=== PATIENT | male | born 1935 | race Caucasian/White ===

== ENCOUNTER 2016-11-04 07:17 | Inpatient (IN) | payer MEDICARE, OTHER ==
[2016-11-04 07:29] VITALS: BMI 34.4
[2016-11-04] MEDS ORDERED: KETOROLAC TROMETHAMINE 30 MG/1 ML VIAL IVPUSH ONE (08:00)
[2016-11-04] MEDS ORDERED: SODIUM CHLORIDE 1,000 ML IV SCH (08:00)
--- NOTE | 2016-11-04 08:00 | PDOC ---
History of Present Illness <Jose Kirk - Last Filed: 11/04/16 11:12> - General History Source: Patient Exam Limitations: No Limitations - History of Present Illness Initial Comments: 11/04/16 09:30 The patient is an 80 year old male with a significant past medical history of gout, diabetes, hypertension, cardiac stent (on Eliquis and Advil), CAD, and pacemaker, who presents to the ER with chest pain and cough for five days and joint pain in the left elbow and ankles. Patient states he has a progressively worsening productive cough. He states he has associated chest pain while coughing. Patient reports he has swelling in the right arm and swelling in the feet. He states he recently had a vaccination but cannot recall if it was a flu shot or a pneumonia shot. Patient denies taking allopurinol. He denies shortness of breath He denies fever, chills, nausea, vomiting, weakness, paresthesia, or abdominal pain PCP: Dr. Don Patterson Cardiolgist: Dr. Brunner <Ching Lopez - Last Filed: 11/04/16 12:48> - General Chief Complaint: Shortness of Breath Stated Complaint: SOB,EDEMA,PAIN Past History - Past Medical History Anemia: No Asthma: No Cancer: No Cardiac Disorders: Yes (Pacemaker) CVA: No COPD: No CHF: No Dementia: No Diabetes: Yes GI Disorders: No Disorders: Yes (?) HTN: Yes Hypercholesterolemia: Yes Liver Disease: No Seizures: No Thyroid Disease: No - Surgical History Cardiac Surgery: Yes (pacemaker, STENTS,Pacemaker) Cholecystectomy: Yes Orthopedic Surgery: Yes - Psycho/Social/Smoking Cessation Hx Anxiety: No Suicidal Ideation: No Smoking Status: No Smoking History: Never smoked Have you smoked in the past 12 months: No Number of Cigarettes Smoked Daily: 0 Information on smoking cessation initiated: No Hx Alcohol Use: No Drug/Substance Use Hx: No Substance Use Type: None Hx Substance Use Treatment: No <Jose Kirk - Last Filed: 11/04/16 11:12> <Ching Lopez - Last Filed: 11/04/16 12:48> - Past Medical History Allergies/Adverse Reactions: Allergies Allergy/AdvReac Type Severity Reaction Status Date / Time No Known Drug Allergies Allergy Verified 11/04/16 07:25 Home Medications: Ambulatory Orders Aspirin [Aspirin EC] 81 mg PO DAILY 12/01/15 Atorvastatin Ca [Lipitor] 20 mg PO HS 12/01/15 Glimepiride 4 mg PO BID 12/01/15 Ranitidine [Zantac -] 150 mg PO BID 12/01/15 Ranolazine [Ranexa] 500 mg PO BID 12/01/15 Sacubitril/Valsartan [Entresto 24 mg-26 mg Tablet] 1 each PO BID 12/01/15 Tamsulosin HCl 0.4 mg PO DAILY 12/01/15 Furosemide [Lasix -] 40 mg PO DAILY #30 tablet 12/07/15 Amlodipine Besylate 2.5 mg PO DAILY 11/04/16 Apixaban [Eliquis] 2.5 mg PO BID 11/04/16 Colchicine [Colcrys -] 0.6 mg PO DAILY 11/04/16 Linaclotide [Linzess] 145 mcg PO DAILY 11/04/16 Linagliptin [Tradjenta] 5 mg PO DAILY 11/04/16 Meclizine HCl [Antivert -] 25 mg PO TID PRN 11/04/16 Review of Systems - Review of Systems Able to Perform ROS?: Yes Comments:: 11/04/16 09:30 CONSTITUTIONAL: Absent: fever, no chills, no fatigue EYES: Absent: visual changes ENT: Absent: ear pain, no sore throat CARDIOVASCULAR: Absent: chest pain, no palpitations RESPIRATORY: Absent: cough, no SOB GI: Absent: abdominal pain, no nausea, no vomiting, no constipation, no diarrhea GENITOURINARY: Absent: dysuria, no frequency, no hematuria MUSCULOSKELETAL: Present: arthralgia, joint pain Absent: back pain, no arthralgia, no myalgia SKIN: Absent: rash NEURO: Absent: headache <Uts,Ching - Last Filed: 11/04/16 12:48> *Physical Exam - Vital Signs Last Vital Signs Temp Pulse Resp BP Pulse Ox 98.5 F 72 18 125/55 99 11/04/16 07:23 11/04/16 07:23 11/04/16 07:23 11/04/16 07:23 11/04/16 07:23 <Jose Kirk - Last Filed: 11/04/16 11:12> - Vital Signs Last Vital Signs Temp Pulse Resp BP Pulse Ox 98.5 F 72 18 125/55 99 11/04/16 07:23 11/04/16 07:23 11/04/16 07:23 11/04/16 07:23 11/04/16 07:23 - Physical Exam Comments: 11/04/16 09:31 GENERAL: Well-appearing, well-nourished. No apparent distress. HEENT: Normocephalic, atraumatic. PERRL, EOM intact. CARDIOVASCULAR: Normal S1, S2. Regular rate and rhythm. PULMONARY: Clear to auscultation bilaterally. ABDOMEN: Distended abdomen. Soft, non-tender. EXTREMITIES: Exquisitely tender in the first metatarsal of the right foot, right over olecranon of left elbow. SKIN: Warm, dry. No rash NEUROLOGICAL: No focal neurological deficits. <Ching Lopez - Last Filed: 11/04/16 12:48> ED Treatment Course - LABORATORY CBC & Chemistry Diagram: 11/04/16 08:10 11/04/16 09:00 <Jose Kirk - Last Filed: 11/04/16 11:12> - LABORATORY CBC & Chemistry Diagram: 11/04/16 08:10 11/04/16 09:00 - ADDITIONAL ORDERS Additional order review: Laboratory Results 11/04/16 08:16 INR 2.08 H D PTT (Actin FS) 33.0 11/04/16 08:10 RBC 2.92 L MCV 85.0 MCHC 30.2 L RDW 18.2 H D MPV 8.4 Neutrophils % 73.5 D Lymphocytes % 15.0 D Monocytes % 10.7 H Eosinophils % 0.6 D Basophils % 0.2 - Medications Given in the ED: ED Medications Discontinued Medications Generic Name Dose Route Start Last Admin Trade Name Freq PRN Reason Stop Dose Admin Ketorolac Tromethamine 30 mg 11/04/16 08:00 11/04/16 08:23 Toradol Injection - IVPUSH 11/04/16 08:01 30 mg ONCE ONE Administration <Ching Lopez - Last Filed: 11/04/16 12:48> Medical Decision Making - Medical Decision Making 11/04/16 11:[address] Alexandre (covering for Dr. Brunner) <Ching Lopez - Last Filed: 11/04/16 12:48> *DC/Admit/Observation/Transfer - Discharge Dispostion Admit: Yes <Jose Kirk - Last Filed: 11/04/16 11:12> - Attestations Scribe Attestion: 11/04/16 09:33 Documentation prepared by Ching Lopez, acting as forensic medical examiner for Jose Kirk MD, /DO. <Ching Lopez - Last Filed: 11/04/16 12:48> Diagnosis at time of Disposition: Acute exacerbation of CHF (congestive heart failure), Anemia Gout attack Qualifiers: Gout site: foot Gout etiology: idiopathic - Discharge Dispostion Condition at time of disposition: Stable - Referrals
[2016-11-04] MEDS ORDERED: KETOROLAC TROMETHAMINE 30 MG/1 ML VIAL ONE (08:23)
[2016-11-04 08:42] LABS: BASOPHIL 0.2 % (0-2.0); EOSINOPHIL 0.6 % (0-4.5); MCH 25.7 pg (25.7-33.7); MCHC 30.2 g/dl (32.0-35.9); MEAN PLT VOLUME 8.4 fl (7.5-11.1); NEUTROPHILS 73.5 % (42.8-82.8); PLATELET COUNT 273 K/MM3 (134-434); RDW 18.2 % (11.9-15.9); WHITE BLOOD COUNT 13.4 K/mm3 (4.0-10.0)
[2016-11-04 09:05] LABS: INR 2.08 (0.82-1.09); PROTHROMBIN TIME (PATIENT) 23.2 SEC (9.98-11.88)
[2016-11-04] MEDS ORDERED: FUROSEMIDE 40 MG/4 ML INJECTABLE VIAL IVPUSH ONE (09:33)
[2016-11-04 09:35] LABS: ALBUMIN 2.9 g/dl (3.4-5.0); BILIRUBIN,TOTAL 0.3 mg/dL (0.2-1.0); CALCIUM 8.2 mg/dL (8.5-10.1); CREATININE 2.5 mg/dL (0.7-1.3); TOT PROT 6.7 g/dl (6.4-8.2); URIC ACID 10.8 mg/dL (2.6-7.2)
[2016-11-04 09:45] LABS: TROPONIN I 0.05 ng/ml (0.00-0.05)
[2016-11-04] MEDS ORDERED: FUROSEMIDE 40 MG/4 ML INJECTABLE VIAL ONE (10:07)
[2016-11-04 10:14] LABS: URINE APPEARANCE CLEAR; URINE BILIRUBIN NEGATIVE (NEGATIVE); URINE BLOOD NEGATIVE (NEGATIVE); URINE COLOR YELLOW; URINE GLUCOSE (UA) NEGATIVE (NEGATIVE); URINE KETONE NEGATIVE (NEGATIVE); URINE LEUK ESTERASE NEGATIVE (NEGATIVE); URINE NITRITE NEGATIVE (NEGATIVE); URINE UROBILINOGEN 2.0 E.U/dl E.U./dl (0.2-1.0)
[2016-11-04 10:29] LABS: URINE PROTEIN 2+ (NEGATIVE)
--- NOTE | 2016-11-04 10:33 | EKG ---
Test Reason : Blood Pressure : / mmHG Vent. Rate : 082 BPM Atrial Rate : 025 BPM P-R Int : 000 ms QRS Dur : 164 ms QT Int : 442 ms P-R-T Axes : 000 -53 099 degrees QTc Int : 516 ms POOR DATA QUALITY, INTERPRETATION MAY BE ADVERSELY AFFECTED Ventricular-paced rhythm WITH OCCASIONAL PREMATURE VENTRICULAR COMPLEXES ABNORMAL ECG WHEN COMPARED WITH ECG OF 01-DEC-2015 16:37, PREMATURE VENTRICULAR COMPLEXES ARE NOW PRESENT VENT. RATE HAS INCREASED BY 16 BPM Confirmed by SABIHA DOWNS MD ([id number]) on 11/04/2016 10:33:12 AM Referred By: Confirmed By:SABIHA DOWNS MD
[2016-11-04 10:37] LABS: URINE HYALINE CAST 27 /lpf; URINE MUCUS RARE; URINE RBC 2 /hpf (0-3); URINE WBC 2 /hpf (3-5)
[2016-11-04] MEDS ORDERED: COLCHICINE 0.6 MG TABLET (FP) PO ONE (11:05)
[2016-11-04] MEDS ORDERED: COLCHICINE 0.6 MG TABLET (FP) ONE (11:11)
--- NOTE | 2016-11-04 14:55 | CONSULT ---
Consult Consult Specialty:: Cardiology Reason for Consultation:: chf - History of Present Illness History of Present Illness: The patient is an 80 year old male with a significant past medical history of gout, diabetes, hypertension, cardiac stent (on Eliquis and Advil), CAD, and pacemaker, who presents to the ER with chest pain and cough for five days and joint pain in the left elbow and ankles. Patient states he has a progressively worsening productive cough. He states he has associated chest pain while coughing. Patient reports he has swelling in the right arm and swelling in the feet. He states he recently had a vaccination but cannot recall if it was a flu shot or a pneumonia shot. Patient denies taking allopurinol. He denies shortness of breath He denies fever, chills, nausea, vomiting, weakness, paresthesia, or abdominal pain - Past Medical History Cardio/Vascular: Yes: CAD, CHF, HTN, Other (CHB s/p PPM) Gastrointestinal: Yes: Constipation Renal/: Yes: Renal Inusuff Musculoskeletal: Yes: Osteoarthritis - Past Surgical History Past Surgical History: Yes: Permanent Pacemaker - Alcohol/Substance Use Hx Alcohol Use: No - Smoking History Smoking history: Never smoked Have you smoked in the past 12 months: No Aproximately how many cigarettes per day: 0 - Social History ADL: Independent History of Recent Travel: No Home Medications - Allergies Allergies/Adverse Reactions: Allergies Allergy/AdvReac Type Severity Reaction Status Date / Time No Known Drug Allergies Allergy Verified 11/04/16 07:25 - Home Medications Home Medications: Ambulatory Orders Aspirin [Aspirin EC] 81 mg PO DAILY 12/01/15 Atorvastatin Ca [Lipitor] 20 mg PO HS 12/01/15 Glimepiride 4 mg PO BID 12/01/15 Ranitidine [Zantac -] 150 mg PO BID 12/01/15 Ranolazine [Ranexa] 500 mg PO BID 12/01/15 Sacubitril/Valsartan [Entresto 24 mg-26 mg Tablet] 1 each PO BID 12/01/15 Tamsulosin HCl 0.4 mg PO DAILY 12/01/15 Furosemide [Lasix -] 40 mg PO DAILY #30 tablet 12/07/15 Amlodipine Besylate 2.5 mg PO DAILY 11/04/16 Apixaban [Eliquis] 2.5 mg PO BID 11/04/16 Colchicine [Colcrys -] 0.6 mg PO DAILY 11/04/16 Linaclotide [Linzess] 145 mcg PO DAILY 11/04/16 Linagliptin [Tradjenta] 5 mg PO DAILY 11/04/16 Meclizine HCl [Antivert -] 25 mg PO TID PRN 11/04/16 Review of Systems - Review of Systems Constitutional: reports: No Symptoms Eyes: reports: No Symptoms HENT: reports: No Symptoms Neck: reports: No Symptoms Cardiovascular: reports: Shortness of Breath Gastrointestinal: reports: No Symptoms Genitourinary: reports: No Symptoms Breasts: reports: No Symptoms Reported Musculoskeletal: reports: No Symptoms Integumentary: reports: No Symptoms Neurological: reports: No Symptoms Endocrine: reports: No Symptoms Hematology/Lymphatic: reports: No Symptoms Psychiatric: reports: No Symptoms Vital Signs: Vital Signs Temperature 98.5 F 11/04/16 07:23 Pulse Rate 71 11/04/16 11:01 Respiratory Rate 19 11/04/16 11:01 Blood Pressure 130/68 11/04/16 11:01 O2 Sat by Pulse Oximetry (%) 96 11/04/16 11:01 Constitutional: Yes: Well Nourished, No Distress, Calm Eyes: Yes: WNL, Conjunctiva Clear, EOM Intact HENT: Yes: WNL, Atraumatic, Normocephalic Neck: Yes: WNL, Supple, Trachea Midline Respiratory: Yes: WNL, Regular, CTA Bilaterally Gastrointestinal: Yes: WNL, Normal Bowel Sounds Renal/: Yes: WNL Cardiovascular: Yes: WNL, Regular Rate and Rhythm Musculoskeletal: Yes: WNL Extremities: Yes: WNL Integumentary: Yes: WNL Neurological: Yes: WNL, Alert, Oriented ...Motor Strength: WNL Psychiatric: Yes: WNL, Alert, Oriented - Other Data Labs, Other Data: INR, PTT INR 2.08 (0.82-1.09) H D 11/04/16 08:16 Laboratory Tests 11/04/16 11/04/16 11/04/16 08:10 08:16 09:00 WBC 13.4 H D RBC 2.92 L Hgb 7.5 L D Hct 24.8 L MCV 85.0 MCHC 30.2 L RDW 18.2 H D Plt Count 273 D MPV 8.4 Neutrophils % 73.5 D Lymphocytes % 15.0 D Monocytes % 10.7 H Eosinophils % 0.6 D Basophils % 0.2 INR 2.08 H D PTT (Actin FS) 33.0 Sodium 142 Potassium 3.8 Chloride 106 Carbon Dioxide 26 Anion Gap 10 BUN 39 H Creatinine 2.5 H Creat Clearance w eGFR 24.91 Random Glucose 141 H D Uric Acid 10.8 H Calcium 8.2 L Total Bilirubin 0.3 AST 12 L ALT 13 Alkaline Phosphatase 56 D Creatine Kinase 137 Troponin I 0.05 D B-Natriuretic Peptide Total Protein 6.7 Albumin 2.9 L Urine Color Urine Appearance Urine pH Ur Specific [place] Urine Protein Urine Glucose (UA) Urine Ketones Urine Blood Urine Nitrite Urine Bilirubin Urine Urobilinogen Ur Leukocyte Esterase Urine RBC Urine WBC Ur Epithelial Cells Hyaline Casts Urine Mucus Stool Occult Blood Blood Type Antibody Screen 11/04/16 11/04/16 11/04/16 09:10 09:10 09:48 WBC RBC Hgb Hct MCV MCHC RDW Plt Count MPV Neutrophils % Lymphocytes % Monocytes % Eosinophils % Basophils % INR PTT (Actin FS) Sodium Potassium Chloride Carbon Dioxide Anion Gap BUN Creatinine Creat Clearance w eGFR Random Glucose Uric Acid Calcium Total Bilirubin AST ALT Alkaline Phosphatase Creatine Kinase Troponin I B-Natriuretic Peptide 52740.85 H Total Protein Albumin Urine Color Yellow Urine Appearance Clear Urine pH 5.0 Ur Specific [place] 1.017 Urine Protein 2+ H Urine Glucose (UA) Negative Urine Ketones Negative Urine Blood Negative Urine Nitrite Negative Urine Bilirubin Negative Urine Urobilinogen 2.0 e.u/dl Ur Leukocyte Esterase Negative Urine RBC 2 Urine WBC 2 Ur Epithelial Cells Rare Hyaline Casts 27 Urine Mucus Rare Stool Occult Blood Blood Type A POSITIVE Antibody Screen Negative 11/04/16 09:50 WBC RBC Hgb Hct MCV MCHC RDW Plt Count MPV Neutrophils % Lymphocytes % Monocytes % Eosinophils % Basophils % INR PTT (Actin FS) Sodium Potassium Chloride Carbon Dioxide Anion Gap BUN Creatinine Creat Clearance w eGFR Random Glucose Uric Acid Calcium Total Bilirubin AST ALT Alkaline Phosphatase Creatine Kinase Troponin I B-Natriuretic Peptide Total Protein Albumin Urine Color Urine Appearance Urine pH Ur Specific [place] Urine Protein Urine Glucose (UA) Urine Ketones Urine Blood Urine Nitrite Urine Bilirubin Urine Urobilinogen Ur Leukocyte Esterase Urine RBC Urine WBC Ur Epithelial Cells Hyaline Casts Urine Mucus Stool Occult Blood Negative Blood Type Antibody Screen Imaging - Results Chest X-ray: Image Reviewed (cm no i/e) EKG: Image Reviewed (v pacing) Problem List - Problems (1) Acute exacerbation of CHF (congestive heart failure) Code(s): I50.9 - HEART FAILURE, UNSPECIFIED (2) Anemia Code(s): D64.9 - ANEMIA, UNSPECIFIED (3) Gout attack Code(s): M10.9 - GOUT, UNSPECIFIED Qualifiers: Gout site: foot Gout etiology: idiopathic (4) Acute on chronic diastolic (congestive) heart failure Code(s): I50.33 - ACUTE ON CHRONIC DIASTOLIC (CONGESTIVE) HEART FAILURE (5) CAD (coronary artery disease) Code(s): I25.10 - ATHSCL HEART DISEASE OF [place] CORONARY ARTERY W/O ANG PCTRS (6) Chest pain Code(s): R07.9 - CHEST PAIN, UNSPECIFIED (7) Chronic kidney disease Code(s): N18.9 - CHRONIC KIDNEY DISEASE, UNSPECIFIED (8) Cough Code(s): R05 - COUGH (9) DM (diabetes mellitus), type 2 with renal complications Code(s): E11.29 - TYPE 2 DIABETES MELLITUS W OTH DIABETIC KIDNEY COMPLICATION (10) Diabetes mellitus type II, controlled Code(s): E11.9 - TYPE 2 DIABETES MELLITUS WITHOUT COMPLICATIONS (11) HLD (hyperlipidemia) Code(s): E78.5 - HYPERLIPIDEMIA, UNSPECIFIED (12) Hypertension Code(s): I10 - ESSENTIAL (PRIMARY) HYPERTENSION (13) Osteoarthritis Code(s): M19.90 - UNSPECIFIED OSTEOARTHRITIS, UNSPECIFIED SITE (14) Pharyngitis Code(s): J02.9 - ACUTE PHARYNGITIS, UNSPECIFIED (15) SOB (shortness of breath) Code(s): R06.02 - SHORTNESS OF BREATH (16) Stented coronary artery Code(s): Z95.5 - PRESENCE OF CORONARY ANGIOPLASTY IMPLANT AND GRAFT (17) Volume overload Code(s): E87.70 - FLUID OVERLOAD, UNSPECIFIED Assessment/Plan acute out [place] chf systolic ischemic cmp htn dm s/p ICD plan; medical rx for gout iv lasix telemetry med rx for mirian Brunner
[2016-11-04] MEDS ORDERED: MECLIZINE HCL 25 MG TABLET (FP) PO PRN (22:55)
[2016-11-04] MEDS ORDERED: ALBUTEROL SO4 2.5/IPRATROPIUM 0.5 INH SOL 3 ML VIAL.NEB. NEB PRN (23:03)
[2016-11-04] MEDS ORDERED: AZITHROMYCIN IVPB 250 ML IVPB ONE (23:45)
[2016-11-05] MEDS: AZITHROMYCIN IVPB 500 MG in DEXTROSE 5%-WATER - 250 ML IVPB ONE ×2 (00:01→00:08)
[2016-11-05] MEDS: INSULIN SLIDING SCALE (NOVOLOG) 1 VIAL SQ SCH ×2 (06:23→11:52)
[2016-11-05] MEDS ORDERED: sitaGLIPtin PHOSPHATE 50 MG TABLET PO SCH ×2 (07:00→10:00)
[2016-11-05 07:09] LABS: BASOPHIL 0.5 % (0-2.0); MCH 26.6 pg (25.7-33.7); MCHC 31.6 g/dl (32.0-35.9); MEAN CELL VOLUME 84.2 fl (80-96); MEAN PLT VOLUME 8.6 fl (7.5-11.1); NEUTROPHILS 64.3 % (42.8-82.8); PLATELET COUNT 227 K/MM3 (134-434); RDW 17.7 % (11.9-15.9); WHITE BLOOD COUNT 10.2 K/mm3 (4.0-10.0)
[2016-11-05 07:52] LABS: ALBUMIN 2.6 g/dl (3.4-5.0); BILIRUBIN,TOTAL 0.2 mg/dL (0.2-1.0); CALCIUM 7.8 mg/dL (8.5-10.1); CREATININE 2.5 mg/dL (0.7-1.3); TOT PROT 6.2 g/dl (6.4-8.2)
[2016-11-05] MEDS: TAMSULOSIN HCL 0.4 MG CAP.ER.24H (FP) PO SCH (08:34)
[2016-11-05] MEDS ORDERED: PT OWN MED DRAWER 7, Y5N ONE ×2 (09:13→10:04)
[2016-11-05] MEDS: RANOLAZINE E.R. 500 MG TABLET (FP) PO SCH ×2 (09:19→21:53)
[2016-11-05] MEDS: APIXABAN 2.5 MG TABLET PO SCH ×3 (09:20→21:53)
[2016-11-05] MEDS: RANITIDINE HCL 150 MG TABLET (FP) PO SCH ×2 (09:24→21:53)
[2016-11-05] MEDS: SACUBITRIL/VALSARTAN 24 MG-26 MG TABLET PO SCH ×2 (09:25→21:53)
[2016-11-05] MEDS: CEFTRIAXONE 50 ML IVPB SCH (09:25)
--- NOTE | 2016-11-05 09:31 | PN ---
Progress Note, Physician History of Present Illness: The patient is an 80 year old male with a significant past medical history of gout, diabetes, hypertension, cardiac stent (on Eliquis and Advil), CAD, and pacemaker, who presents to the ER with chest pain and cough for five days and joint pain in the left elbow and ankles. Patient states he has a progressively worsening productive cough. He states he has associated chest pain while coughing. Patient reports he has swelling in the right arm and swelling in the feet. He states he recently had a vaccination but cannot recall if it was a flu shot or a pneumonia shot. Patient denies taking allopurinol. He denies shortness of breath He denies fever, chills, nausea, vomiting, weakness, paresthesia, or abdominal pain - Current Medication List Current Medications: Active Medications Albuterol/Ipratropium (Duoneb -) 1 amp NEB Q6H PRN PRN Reason: SHORTNESS OF BREATH Amlodipine Besylate (Norvasc -) 2.5 mg PO DAILY [facility] Apixaban (Eliquis -) 2.5 mg PO BID [facility] Last Admin: 11/05/16 09:20 Dose: 2.5 mg Aspirin (Ecotrin -) 81 mg PO DAILY [facility] Atorvastatin Calcium (Lipitor -) 20 mg PO HS [facility] Furosemide (Lasix Injection -) 40 mg IVPUSH DAILY [facility] Glimepiride (Amaryl -) 4 mg PO BID [facility] Last Admin: 11/05/16 09:22 Dose: 4 mg Azithromycin 250 mg/ Dextrose 250 mls @ 250 mls/hr IVPB DAILY [facility] Ceftriaxone Sodium (Rocephin 1gm Ivpb (Pre-Docked)) 50 mls @ 100 mls/hr IVPB DAILY [facility] Insulin Aspart (Novolog Vial Sliding Scale -) 1 vial SQ ACHS [facility] PRN Reason: Protocol Last Admin: 11/05/16 06:23 Dose: Not Given Meclizine HCl (Antivert -) 25 mg PO TID PRN PRN Reason: VERTIGO Non-Formulary Medication (Linaclotide [Linzess]) 145 mcg PO DAILY [facility] Ranitidine HCl (Zantac -) 150 mg PO BID [facility] Ranolazine (Ranexa -) 500 mg PO BID [facility] Last Admin: 11/05/16 09:19 Dose: 500 mg Sitagliptin Phosphate (Januvia -) 50 mg PO AM [facility] Last Admin: 11/05/16 06:32 Dose: 50 mg Tamsulosin HCl (Flomax -) 0.4 mg PO DAILY@0830 [facility] Last Admin: 11/05/16 08:34 Dose: 0.4 mg - Objective Vital Signs: Vital Signs Temperature 98 F 11/05/16 06:00 Pulse Rate 76 11/05/16 06:00 Respiratory Rate 18 11/05/16 06:00 Blood Pressure 116/54 11/05/16 06:00 O2 Sat by Pulse Oximetry (%) 98 11/05/16 06:00 Eyes: Yes: WNL, Conjunctiva Clear, EOM Intact HENT: Yes: WNL, Atraumatic, Normocephalic Neck: Yes: WNL, Supple, Trachea Midline Cardiovascular: Yes: WNL, Regular Rate and Rhythm Respiratory: Yes: WNL, Regular, CTA Bilaterally Gastrointestinal: Yes: WNL, Normal Bowel Sounds Genitourinary: Yes: WNL Musculoskeletal: Yes: WNL Extremities: Yes: WNL Edema: No Integumentary: Yes: WNL Neurological: Yes: WNL, Alert, Oriented ...Motor Strength: WNL Psychiatric: Yes: WNL Labs: CBC, BMP 11/05/16 05:30 11/05/16 05:30 INR, PTT INR 2.08 (0.82-1.09) H D 11/04/16 08:16 Laboratory Tests 11/04/16 11/04/16 11/04/16 08:10 08:16 09:00 WBC 13.4 H D RBC 2.92 L Hgb 7.5 L D Hct 24.8 L MCV 85.0 MCHC 30.2 L RDW 18.2 H D Plt Count 273 D MPV 8.4 Neutrophils % 73.5 D Lymphocytes % 15.0 D Monocytes % 10.7 H Eosinophils % 0.6 D Basophils % 0.2 INR 2.08 H D PTT (Actin FS) 33.0 Sodium 142 Potassium 3.8 Chloride 106 Carbon Dioxide 26 Anion Gap 10 BUN 39 H Creatinine 2.5 H Creat Clearance w eGFR 24.91 POC Glucometer Random Glucose 141 H D Uric Acid 10.8 H Calcium 8.2 L Total Bilirubin 0.3 AST 12 L ALT 13 Alkaline Phosphatase 56 D Creatine Kinase 137 Troponin I 0.05 D B-Natriuretic Peptide Total Protein 6.7 Albumin 2.9 L Urine Color Urine Appearance Urine pH Ur Specific [place] Urine Protein Urine Glucose (UA) Urine Ketones Urine Blood Urine Nitrite Urine Bilirubin Urine Urobilinogen Ur Leukocyte Esterase Urine RBC Urine WBC Ur Epithelial Cells Hyaline Casts Urine Mucus Stool Occult Blood Blood Type Antibody Screen 11/04/16 11/04/16 11/04/16 09:10 09:10 09:48 WBC RBC Hgb Hct MCV MCHC RDW Plt Count MPV Neutrophils % Lymphocytes % Monocytes % Eosinophils % Basophils % INR PTT (Actin FS) Sodium Potassium Chloride Carbon Dioxide Anion Gap BUN Creatinine Creat Clearance w eGFR POC Glucometer Random Glucose Uric Acid Calcium Total Bilirubin AST ALT Alkaline Phosphatase Creatine Kinase Troponin I B-Natriuretic Peptide 61229.85 H Total Protein Albumin Urine Color Yellow Urine Appearance Clear Urine pH 5.0 Ur Specific [place] 1.017 Urine Protein 2+ H Urine Glucose (UA) Negative Urine Ketones Negative Urine Blood Negative Urine Nitrite Negative Urine Bilirubin Negative Urine Urobilinogen 2.0 e.u/dl Ur Leukocyte Esterase Negative Urine RBC 2 Urine WBC 2 Ur Epithelial Cells Rare Hyaline Casts 27 Urine Mucus Rare Stool Occult Blood Blood Type A POSITIVE Antibody Screen Negative 11/04/16 11/05/16 11/05/16 09:50 05:30 05:30 WBC 10.2 H RBC 2.57 L Hgb 6.8 L* Hct 21.7 L MCV 84.2 MCHC 31.6 L RDW 17.7 H Plt Count 227 MPV 8.6 Neutrophils % 64.3 Lymphocytes % 23.0 D Monocytes % 10.2 Eosinophils % 2.0 D Basophils % 0.5 INR PTT (Actin FS) Sodium 142 Potassium 4.0 Chloride 107 Carbon Dioxide 25 Anion Gap 10 BUN 41 H Creatinine 2.5 H Creat Clearance w eGFR 24.91 POC Glucometer Random Glucose 94 D Uric Acid Calcium 7.8 L Total Bilirubin 0.2 D AST 11 L ALT 13 Alkaline Phosphatase 50 Creatine Kinase Troponin I B-Natriuretic Peptide Total Protein 6.2 L Albumin 2.6 L Urine Color Urine Appearance Urine pH Ur Specific [place] Urine Protein Urine Glucose (UA) Urine Ketones Urine Blood Urine Nitrite Urine Bilirubin Urine Urobilinogen Ur Leukocyte Esterase Urine RBC Urine WBC Ur Epithelial Cells Hyaline Casts Urine Mucus Stool Occult Blood Negative Blood Type Antibody Screen 11/05/16 06:22 WBC RBC Hgb Hct MCV MCHC RDW Plt Count MPV Neutrophils % Lymphocytes % Monocytes % Eosinophils % Basophils % INR PTT (Actin FS) Sodium Potassium Chloride Carbon Dioxide Anion Gap BUN Creatinine Creat Clearance w eGFR POC Glucometer 110 Random Glucose Uric Acid Calcium Total Bilirubin AST ALT Alkaline Phosphatase Creatine Kinase Troponin I B-Natriuretic Peptide Total Protein Albumin Urine Color Urine Appearance Urine pH Ur Specific [place] Urine Protein Urine Glucose (UA) Urine Ketones Urine Blood Urine Nitrite Urine Bilirubin Urine Urobilinogen Ur Leukocyte Esterase Urine RBC Urine WBC Ur Epithelial Cells Hyaline Casts Urine Mucus Stool Occult Blood Blood Type Antibody Screen Problem List - Problems (1) Acute exacerbation of CHF (congestive heart failure) Code(s): I50.9 - HEART FAILURE, UNSPECIFIED (2) Anemia Code(s): D64.9 - ANEMIA, UNSPECIFIED (3) Gout attack Code(s): M10.9 - GOUT, UNSPECIFIED Qualifiers: Gout site: foot Gout etiology: idiopathic (4) Acute on chronic diastolic (congestive) heart failure Code(s): I50.33 - ACUTE ON CHRONIC DIASTOLIC (CONGESTIVE) HEART FAILURE (5) CAD (coronary artery disease) Code(s): I25.10 - ATHSCL HEART DISEASE OF [place] CORONARY ARTERY W/O ANG PCTRS (6) Chest pain Code(s): R07.9 - CHEST PAIN, UNSPECIFIED (7) Chronic kidney disease Code(s): N18.9 - CHRONIC KIDNEY DISEASE, UNSPECIFIED (8) Cough Code(s): R05 - COUGH (9) DM (diabetes mellitus), type 2 with renal complications Code(s): E11.29 - TYPE 2 DIABETES MELLITUS W OTH DIABETIC KIDNEY COMPLICATION (10) Diabetes mellitus type II, controlled Code(s): E11.9 - TYPE 2 DIABETES MELLITUS WITHOUT COMPLICATIONS (11) HLD (hyperlipidemia) Code(s): E78.5 - HYPERLIPIDEMIA, UNSPECIFIED (12) Hypertension Code(s): I10 - ESSENTIAL (PRIMARY) HYPERTENSION (13) Osteoarthritis Code(s): M19.90 - UNSPECIFIED OSTEOARTHRITIS, UNSPECIFIED SITE (14) Pharyngitis Code(s): J02.9 - ACUTE PHARYNGITIS, UNSPECIFIED (15) SOB (shortness of breath) Code(s): R06.02 - SHORTNESS OF BREATH (16) Stented coronary artery Code(s): Z95.5 - PRESENCE OF CORONARY ANGIOPLASTY IMPLANT AND GRAFT (17) Volume overload Code(s): E87.70 - FLUID OVERLOAD, UNSPECIFIED Assessment/Plan acute out [place] chf systolic ischemic cmp htn dm s/p ICD anemia plan; anemia w/u hct 24 to 21 ? - as per medicine medical rx for gout iv lasix telemetry med rx for terrad wade Brunner
[2016-11-05] MEDS ORDERED: AZITHROMYCIN IVPB 500 MG in DEXTROSE 5%-WATER - 250 ML IVPB SCH (10:00)
[2016-11-05] MEDS ORDERED: ASPIRIN 325 MG ENTERIC COATED TABLET (FP) PO SCH (10:00)
[2016-11-05] MEDS ORDERED: CEFTRIAXONE 1 GM in DEXTROSE 5%-WATER - 50 ML IVPB SCH (10:00)
[2016-11-05] MEDS ORDERED: AZITHROMYCIN IVPB 250 MG in DEXTROSE 5%-WATER - 250 ML IVPB SCH (10:00)
[2016-11-05] MEDS ORDERED: GLIMEPIRIDE 2 MG TABLET (FP) PO SCH ×2 (10:00→16:30)
[2016-11-05] MEDS ORDERED: amLODIPine BESYLATE 10 MG TABLET (FP) PO SCH (10:00)
[2016-11-05] MEDS: ASPIRIN COATED 81 MG TABLET.EC PO SCH (10:07)
[2016-11-05] MEDS: amLODIPine BESYLATE 2.5 MG TABLET (FP) PO SCH (10:08)
[2016-11-05] MEDS: FUROSEMIDE 40 MG/4 ML INJECTABLE VIAL IVPUSH SCH (10:08)
--- NOTE | 2016-11-05 11:53 | PN ---
Progress Note (short form) - Note Progress Note: PULMONARY CONSULTATION DICTATED 11/05/16 IMP DECOMPENSATED CHF ACUTE BRONCHITIS ASHD S/P STENT ACUTE ON CHRONIC RENAL FAILURE SEVERE ANEMIA GOUT PLAN IV LASIX INHALED BROCHODILATORS ANTIBIOTICS TRANSFUSE MONITOR H+H NASAL O2 MONITOR RENAL FUNCTION DR GARNER Problem List - Problems (1) Acute exacerbation of CHF (congestive heart failure) Code(s): I50.9 - HEART FAILURE, UNSPECIFIED (2) Anemia Code(s): D64.9 - ANEMIA, UNSPECIFIED (3) Gout attack Code(s): M10.9 - GOUT, UNSPECIFIED Qualifiers: Gout site: foot Gout etiology: idiopathic (4) Acute on chronic diastolic (congestive) heart failure Code(s): I50.33 - ACUTE ON CHRONIC DIASTOLIC (CONGESTIVE) HEART FAILURE (5) CAD (coronary artery disease) Code(s): I25.10 - ATHSCL HEART DISEASE OF [place] CORONARY ARTERY W/O ANG PCTRS (6) Chest pain Code(s): R07.9 - CHEST PAIN, UNSPECIFIED (7) Chronic kidney disease Code(s): N18.9 - CHRONIC KIDNEY DISEASE, UNSPECIFIED (8) Cough Code(s): R05 - COUGH (9) DM (diabetes mellitus), type 2 with renal complications Code(s): E11.29 - TYPE 2 DIABETES MELLITUS W OTH DIABETIC KIDNEY COMPLICATION (10) SOB (shortness of breath) Code(s): R06.02 - SHORTNESS OF BREATH (11) Stented coronary artery Code(s): Z95.5 - PRESENCE OF CORONARY ANGIOPLASTY IMPLANT AND GRAFT (12) Volume overload Code(s): E87.70 - FLUID OVERLOAD, UNSPECIFIED (13) Bronchitis Code(s): J40 - BRONCHITIS, NOT SPECIFIED ACUTE OR CHRONIC
[2016-11-05] MEDS ORDERED: DEXTROSE 50%-WATER 50 ML DISP.SYRIN ONE ×2 (14:11→18:41)
--- NOTE | 2016-11-05 15:38 | CONS ---
DATE OF CONSULTATION: 11/05/2016 REFERRING PHYSICIAN: Mecca Rick MD The patient is an 80-year-old male with past medical of gout, diabetes, hypertension, ASHD, status post stent, status post pacemaker, history of smoking many years ago, admitted to [facility] with complaint of chest pain, cough, chest congestion for approximately 5 days. Patient apparently developed chest discomfort as well as cough productive of greenish sputum for the past 5 days or so. He also complained of joint pain, left elbow and ankle pain. Apparently he started getting progressively short of breath and dyspnea on exertion, at which time he presented to the emergency room. In the ER, he was noted to have swelling of right arm and swelling of the feet. He was also noted to be short of breath. He was administered Lasix, transferred up to the floor for further management. Cardiology felt he had an acute decompensated CHF. Of note is he is also noted to be markedly anemic, with a hemoglobin of 7.5 g. He was transfused and repeat this morning revealed hemoglobin of 6.8. Patient denies any history of anemia. He does state that for the past few months, he is getting progressively more dyspneic with minimal exertion, where he only walks half a block or so and then develops severe dyspnea, requiring him to stop before proceeding. He denies any recently travel. There is no DVT or PE in the past. Past medical history, again, includes ASHD, status post stent, status post pacemaker, hypertension, diabetes, gout, questionable CHF. SOCIAL HISTORY: History of smoking many years ago. No occupational exposures. Born in [place], moved to the [facility] greater than 20 years ago. REVIEW OF SYSTEMS: Positive dyspnea, positive cough, green sputum. No hemoptysis. Positive chest discomfort. Positive wheezing. No nausea, no vomiting, no GI complaints. Current medications include , Flomax, Zithromax, ceftriaxone, Eliquis, Antivert, DuoNeb, Ranexa, Norvasc, Januvia, Lipitor, Zantac, Lasix, Ecotrin, and Amaryl. PHYSICAL EXAMINATION: General: The patient is a well-developed, well-nourished male, awake, alert, in no acute distress. Vital Signs: He is currently afebrile. Blood pressure is 116/64. Respiratory rate 18. Heart rate is 76. HEENT: Normocephalic, atraumatic. Neck: Supple. Heart: Regular, S1, S2. Chest: Few bibasilar crackles. Abdomen: Soft. Bowel sounds positive. Extremities: No cyanosis. There is trace bilateral extremity edema. LABORATORIES: WBC is 10.2, hemoglobin 6.8, hematocrit 21.7, with a platelet count of 227,000. INR is 2.08. BNP is 12,262. BUN 41, creatinine 2.5. IMPRESSION: 1. Dyspnea, most likely secondary to multiple factors, one likely decompensated congestive heart failure. 2. Arteriosclerotic heart disease, status post stents. 3. Severe anemia. 4. Upper respiratory infection, acute bronchitis. 5. Acute on chronic renal failure. PLAN: Lasix, supplemental O2, inhaled bronchodilators, CT scan of the chest when stable, transfuse, stool guaiacs, monitor renal function, echocardiogram, daily weights. Anthony [id number]
[2016-11-05] MEDS ORDERED: FUROSEMIDE 40 MG/4 ML INJECTABLE VIAL ONE (18:41)
[2016-11-05] MEDS: DEXTROSE 5%-0.45% SALINE 1,000 ML IV SCH (18:58)
[2016-11-05] MEDS ORDERED: DEXTROSE 50%-WATER 50 ML DISP.SYRIN IVPUSH ONE (19:00)
[2016-11-05] MEDS ORDERED: FUROSEMIDE 40 MG/4 ML INJECTABLE VIAL IVPUSH ONE (19:00)
--- NOTE | 2016-11-05 19:23 | HP ---
Admitting History and Physical - Admission History of Present Illness: Pt is a 80 y/o male w/ multiple medical problems incl - Past Medical History Cardiovascular: Yes: CAD, CHF, HTN, Other (CHB s/p PPM) Gastrointestinal: Yes: Constipation Renal/: Yes: Renal Inusuff Musculoskeletal: Yes: Osteoarthritis - Past Surgical History Past Surgical History: Yes: Permanent Pacemaker - Smoking History Smoking history: Never smoked Have you smoked in the past 12 months: No Aproximately how many cigarettes per day: 0 - Alcohol/Substance Use Hx Alcohol Use: No - Social History ADL: Independent History of Recent Travel: No Home Medications - Allergies Allergies/Adverse Reactions: Allergies Allergy/AdvReac Type Severity Reaction Status Date / Time No Known Drug Allergies Allergy Verified 11/04/16 07:25 - Home Medications Home Medications: Ambulatory Orders Aspirin [Aspirin EC] 81 mg PO DAILY 12/01/15 Atorvastatin Ca [Lipitor] 20 mg PO HS 12/01/15 Glimepiride 4 mg PO BID 12/01/15 Ranitidine [Zantac -] 150 mg PO BID 12/01/15 Ranolazine [Ranexa] 500 mg PO BID 12/01/15 Sacubitril/Valsartan [Entresto 24 mg-26 mg Tablet] 1 each PO BID 12/01/15 Tamsulosin HCl 0.4 mg PO DAILY 12/01/15 Furosemide [Lasix -] 40 mg PO DAILY #30 tablet 12/07/15 Amlodipine Besylate 2.5 mg PO DAILY 11/04/16 Apixaban [Eliquis] 2.5 mg PO BID 11/04/16 Colchicine [Colcrys -] 0.6 mg PO DAILY 11/04/16 Linaclotide [Linzess] 145 mcg PO DAILY 11/04/16 Linagliptin [Tradjenta] 5 mg PO DAILY 11/04/16 Meclizine HCl [Antivert -] 25 mg PO TID PRN 11/04/16 Physical Examination Vital Signs: Vital Signs Temperature 98.1 F 11/05/16 19:19 Pulse Rate 74 11/05/16 19:19 Respiratory Rate 18 11/05/16 19:19 Blood Pressure 129/60 11/05/16 19:19 O2 Sat by Pulse Oximetry (%) 98 11/05/16 06:00 Labs: CBC, BMP 11/05/16 05:30 11/05/16 05:30
[2016-11-05] MEDS: ATORVASTATIN CA 20 MG TABLET (FP) PO SCH (21:53)
[2016-11-05] MEDS ORDERED: COLCHICINE 0.6 MG TABLET (FP) PO SCH (22:15)
[2016-11-05] MEDS: COLCHICINE 0.6 MG TABLET (FP) PO SCH (23:07)
[2016-11-06] MEDS: amLODIPine BESYLATE 2.5 MG TABLET (FP) PO SCH (09:24)
[2016-11-06] MEDS: CEFTRIAXONE 50 ML IVPB SCH (09:24)
[2016-11-06] MEDS: TAMSULOSIN HCL 0.4 MG CAP.ER.24H (FP) PO SCH (09:25)
[2016-11-06] MEDS: ASPIRIN COATED 81 MG TABLET.EC PO SCH (09:25)
[2016-11-06] MEDS: RANITIDINE HCL 150 MG TABLET (FP) PO SCH ×2 (09:26→21:34)
[2016-11-06] MEDS: FUROSEMIDE 40 MG/4 ML INJECTABLE VIAL IVPUSH SCH (09:26)
[2016-11-06 09:48] LABS: MCH 26.5 pg (25.7-33.7); MCHC 31.4 g/dl (32.0-35.9); MEAN CELL VOLUME 84.4 fl (80-96); PLATELET COUNT 287 K/MM3 (134-434); RDW 17.2 % (11.9-15.9); WHITE BLOOD COUNT 12.7 K/mm3 (4.0-10.0)
[2016-11-06 10:14] LABS: CALCIUM 8.3 mg/dL (8.5-10.1); CREATININE 2.3 mg/dL (0.7-1.3)
--- NOTE | 2016-11-06 10:52 | PN ---
Progress Note, Physician History of Present Illness: PULMONARY ALERT,FEELING BETTER,-SOB,-CP,+OCC COUGH - Current Medication List Current Medications: Active Medications Albuterol/Ipratropium (Duoneb -) 1 amp NEB Q6H PRN PRN Reason: SHORTNESS OF BREATH Amlodipine Besylate (Norvasc -) 2.5 mg PO DAILY [facility] Last Admin: 11/06/16 09:24 Dose: 2.5 mg Aspirin (Ecotrin -) 81 mg PO DAILY [facility] Last Admin: 11/06/16 09:25 Dose: 81 mg Atorvastatin Calcium (Lipitor -) 20 mg PO HS [facility] Last Admin: 11/05/16 21:53 Dose: 20 mg Colchicine (Colcrys -) 0.6 mg PO Q3D@1000 [facility] Last Admin: 11/05/16 23:07 Dose: 0.6 mg Furosemide (Lasix Injection -) 40 mg IVPUSH DAILY [facility] Last Admin: 11/06/16 09:26 Dose: 40 mg Ceftriaxone Sodium (Rocephin 1gm Ivpb (Pre-Docked)) 50 mls @ 100 mls/hr IVPB DAILY [facility] Last Admin: 11/06/16 09:24 Dose: 100 mls/hr Dextrose/Sodium Chloride (D5-1/2ns -) 1,000 mls @ 42 mls/hr IV ASDIR [facility] Last Admin: 11/05/16 18:58 Dose: 42 mls/hr Meclizine HCl (Antivert -) 25 mg PO TID PRN PRN Reason: VERTIGO Non-Formulary Medication (Linaclotide [Linzess]) 145 mcg PO DAILY [facility] Ranitidine HCl (Zantac -) 150 mg PO BID [facility] Last Admin: 11/06/16 09:26 Dose: 150 mg Tamsulosin HCl (Flomax -) 0.4 mg PO DAILY@0830 [facility] Last Admin: 11/06/16 09:25 Dose: 0.4 mg - Objective Vital Signs: Vital Signs Temperature 97.8 F 11/06/16 06:00 Pulse Rate 78 11/06/16 06:00 Respiratory Rate 20 11/06/16 06:00 Blood Pressure 123/63 11/06/16 06:00 O2 Sat by Pulse Oximetry (%) 100 11/05/16 22:00 Constitutional: Yes: Well Nourished, Calm Eyes: Yes: WNL HENT: Yes: WNL Neck: Yes: WNL Cardiovascular: Yes: Regular Rate and Rhythm, S1, S2 Respiratory: Yes: CTA Bilaterally Gastrointestinal: Yes: WNL Extremities: Yes: WNL Edema: No Labs: CBC, BMP 11/06/16 09:35 11/06/16 09:35 INR, PTT INR 2.08 (0.82-1.09) H D 11/04/16 08:16 Problem List - Problems (1) Acute exacerbation of CHF (congestive heart failure) Code(s): I50.9 - HEART FAILURE, UNSPECIFIED (2) Anemia Code(s): D64.9 - ANEMIA, UNSPECIFIED (3) Gout attack Code(s): M10.9 - GOUT, UNSPECIFIED Qualifiers: Gout site: foot Gout etiology: idiopathic (4) Acute on chronic diastolic (congestive) heart failure Code(s): I50.33 - ACUTE ON CHRONIC DIASTOLIC (CONGESTIVE) HEART FAILURE (5) CAD (coronary artery disease) Code(s): I25.10 - ATHSCL HEART DISEASE OF [place] CORONARY ARTERY W/O ANG PCTRS (6) Chest pain Code(s): R07.9 - CHEST PAIN, UNSPECIFIED (7) Chronic kidney disease Code(s): N18.9 - CHRONIC KIDNEY DISEASE, UNSPECIFIED (8) Cough Code(s): R05 - COUGH (9) DM (diabetes mellitus), type 2 with renal complications Code(s): E11.29 - TYPE 2 DIABETES MELLITUS W OTH DIABETIC KIDNEY COMPLICATION (10) SOB (shortness of breath) Code(s): R06.02 - SHORTNESS OF BREATH (11) Stented coronary artery Code(s): Z95.5 - PRESENCE OF CORONARY ANGIOPLASTY IMPLANT AND GRAFT (12) Volume overload Code(s): E87.70 - FLUID OVERLOAD, UNSPECIFIED (13) Bronchitis Code(s): J40 - BRONCHITIS, NOT SPECIFIED ACUTE OR CHRONIC Assessment/Plan IMP DECOMPENSATED CHF ACUTE BRONCHITIS ASHD S/P STENT ACUTE ON CHRONIC RENAL FAILURE SEVERE ANEMIA GOUT PLAN CONT IV LASIX INHALED BROCHODILATORS ANTIBIOTICS TRANSFUSE MONITOR H+H NASAL O2 MONITOR RENAL FUNCTION DR GARNER Problem List - Problems (1) Acute exacerbation of CHF (congestive heart failure) Code(s): I50.9 - HEART FAILURE, UNSPECIFIED (2) Anemia Code(s): D64.9 - ANEMIA, UNSPECIFIED (3) Gout attack Code(s): M10.9 - GOUT, UNSPECIFIED Qualifiers: Gout site: foot Gout etiology: idiopathic (4) Acute on chronic diastolic (congestive) heart failure Code(s): I50.33 - ACUTE ON CHRONIC DIASTOLIC (CONGESTIVE) HEART FAILURE (5) CAD (coronary artery disease) Code(s): I25.10 - ATHSCL HEART DISEASE OF [place] CORONARY ARTERY W/O ANG PCTRS (6) Chest pain Code(s): R07.9 - CHEST PAIN, UNSPECIFIED (7) Chronic kidney disease Code(s): N18.9 - CHRONIC KIDNEY DISEASE, UNSPECIFIED (8) Cough Code(s): R05 - COUGH (9) DM (diabetes mellitus), type 2 with renal complications Code(s): E11.29 - TYPE 2 DIABETES MELLITUS W OTH DIABETIC KIDNEY COMPLICATION (10) SOB (shortness of breath) Code(s): R06.02 - SHORTNESS OF BREATH (11) Stented coronary artery Code(s): Z95.5 - PRESENCE OF CORONARY ANGIOPLASTY IMPLANT AND GRAFT (12) Volume overload Code(s): E87.70 - FLUID OVERLOAD, UNSPECIFIED (13) Bronchitis Code(s): J40 - BRONCHITIS, NOT SPECIFIED ACUTE OR CHRONIC
--- NOTE | 2016-11-06 11:43 | PN ---
Progress Note, Physician History of Present Illness: seen and examined today in nad. no overnight events. no new complaints. - Current Medication List Current Medications: Active Medications Albuterol/Ipratropium (Duoneb -) 1 amp NEB Q6H PRN PRN Reason: SHORTNESS OF BREATH Amlodipine Besylate (Norvasc -) 2.5 mg PO DAILY [facility] Last Admin: 11/06/16 09:24 Dose: 2.5 mg Aspirin (Ecotrin -) 81 mg PO DAILY [facility] Last Admin: 11/06/16 09:25 Dose: 81 mg Atorvastatin Calcium (Lipitor -) 20 mg PO HS [facility] Last Admin: 11/05/16 21:53 Dose: 20 mg Colchicine (Colcrys -) 0.6 mg PO Q3D@1000 [facility] Last Admin: 11/05/16 23:07 Dose: 0.6 mg Furosemide (Lasix Injection -) 40 mg IVPUSH DAILY [facility] Last Admin: 11/06/16 09:26 Dose: 40 mg Ceftriaxone Sodium (Rocephin 1gm Ivpb (Pre-Docked)) 50 mls @ 100 mls/hr IVPB DAILY [facility] Last Admin: 11/06/16 09:24 Dose: 100 mls/hr Dextrose/Sodium Chloride (D5-1/2ns -) 1,000 mls @ 42 mls/hr IV ASDIR [facility] Last Admin: 11/05/16 18:58 Dose: 42 mls/hr Meclizine HCl (Antivert -) 25 mg PO TID PRN PRN Reason: VERTIGO Non-Formulary Medication (Linaclotide [Linzess]) 145 mcg PO DAILY [facility] Ranitidine HCl (Zantac -) 150 mg PO BID [facility] Last Admin: 11/06/16 09:26 Dose: 150 mg Tamsulosin HCl (Flomax -) 0.4 mg PO DAILY@0830 [facility] Last Admin: 11/06/16 09:25 Dose: 0.4 mg - Objective Vital Signs: Vital Signs Temperature 97.8 F 11/06/16 06:00 Pulse Rate 78 11/06/16 06:00 Respiratory Rate 20 11/06/16 06:00 Blood Pressure 123/63 11/06/16 06:00 O2 Sat by Pulse Oximetry (%) 100 11/05/16 22:00 Constitutional: Yes: No Distress, Calm, Obese Eyes: Yes: WNL, Conjunctiva Clear, EOM Intact, PERRL HENT: Yes: WNL, Atraumatic, Normocephalic Neck: Yes: WNL, Supple, Trachea Midline Cardiovascular: Yes: Regular Rate and Rhythm, S1, S2. No: Bradycardia, Tachycardia, Pulse Irregular, Bruit, JVD, Gallop, Murmur, Rub, S3, S4, Varicosities Respiratory: Yes: Regular, Diminished. No: Rales, Rhonchi, Wheezes Gastrointestinal: Yes: WNL, Normal Bowel Sounds, Soft. No: Distention, Tenderness Musculoskeletal: Yes: Muscle Weakness Extremities: Yes: WNL Edema: Yes Edema: LLE: Trace, RLE: Trace Peripheral Pulses: Left Doralis Pedis: 2+, Right Dorsalis Pedis: 2+ Integumentary: Yes: WNL Neurological: Yes: WNL, Alert, Oriented, Cran Nerves II-XII Intact ...Motor Strength: WNL Psychiatric: Yes: WNL, Alert, Oriented Labs: CBC, BMP 11/06/16 09:35 11/06/16 09:35 INR, PTT INR 2.08 (0.82-1.09) H D 11/04/16 08:16 - ....Imaging Chest X-ray: Report Reviewed, Image Reviewed EKG: Report Reviewed, Image Reviewed Other: Report Reviewed, Image Reviewed (tele-nsr, intermittent vpaced, pvcs) Problem List - Problems (1) Acute on chronic diastolic (congestive) heart failure Code(s): I50.33 - ACUTE ON CHRONIC DIASTOLIC (CONGESTIVE) HEART FAILURE (2) CAD (coronary artery disease) Code(s): I25.10 - ATHSCL HEART DISEASE OF [place] CORONARY ARTERY W/O ANG PCTRS (3) Chest pain Code(s): R07.9 - CHEST PAIN, UNSPECIFIED (4) Chronic kidney disease Code(s): N18.9 - CHRONIC KIDNEY DISEASE, UNSPECIFIED (5) DM (diabetes mellitus), type 2 with renal complications Code(s): E11.29 - TYPE 2 DIABETES MELLITUS W OTH DIABETIC KIDNEY COMPLICATION (6) HLD (hyperlipidemia) Code(s): E78.5 - HYPERLIPIDEMIA, UNSPECIFIED (7) Hypertension Code(s): I10 - ESSENTIAL (PRIMARY) HYPERTENSION (8) SOB (shortness of breath) Code(s): R06.02 - SHORTNESS OF BREATH (9) Stented coronary artery Code(s): Z95.5 - PRESENCE OF CORONARY ANGIOPLASTY IMPLANT AND GRAFT Assessment/Plan acute gout flair acute on chronic combined systolic/diastolic CHF cough/sob ICM htn dm s/p ICD anemia plan severe anemia down to Hgb 6.8, improved today after prbcs, anemia work up Hold eliquis for now until etiology of anemia determined and treated medical rx for gout cont iv lasix for now monitor I/Os and daily weights ok to dc telemetry chest pain-atypical, cardiac enzymes wnl x1, would repeat 2nd set cont home med rx for known CAD
[2016-11-06] MEDS ORDERED: PT OWN MED DRAWER 7, Y5N ONE ×2 (11:57→21:24)
[2016-11-06] MEDS: SACUBITRIL/VALSARTAN 24 MG-26 MG TABLET PO SCH ×2 (12:31→21:34)
--- NOTE | 2016-11-06 14:30 | CONSULT ---
Consult - text type - Consultation Consultation Note: The patient is an 80 year old male with a significant past medical history of gout, diabetes, hypertension, cardiac stent (on Eliquis and Advil), CAD, and pacemaker, who presents to the ER with chest pain and cough for five days and joint pain in the left elbow and ankles. Patient states he had progressively worsening productive cough. He denies fever, chills, nausea, vomiting, weakness, paresthesia, or abdominal pain. He denies overt bleeding Currently he has low sugars. amaryl/januvia on hold we have been consulted for anemia. HE was trransfused 1 unit PRBCs yesterday - Past Medical History Cardio/Vascular: Yes: CAD, CHF, HTN, Other (CHB s/p PPM) Gastrointestinal: Yes: Constipation Renal/: Yes: Renal Inusuff Musculoskeletal: Yes: Osteoarthritis - Past Surgical History Past Surgical History: Yes: Permanent Pacemaker - Smoking History Smoking history: Never smoked Home Medications - Allergies Allergies/Adverse Reactions: Allergies Allergy/AdvReac Type Severity Reaction Status Date / Time No Known Drug Allergies Allergy Verified 11/04/16 07:25 - Home Medications Home Medications: Ambulatory Orders Aspirin [Aspirin EC] 81 mg PO DAILY 12/01/15 Atorvastatin Ca [Lipitor] 20 mg PO HS 12/01/15 Glimepiride 4 mg PO BID 12/01/15 Ranitidine [Zantac -] 150 mg PO BID 12/01/15 Ranolazine [Ranexa] 500 mg PO BID 12/01/15 Sacubitril/Valsartan [Entresto 24 mg-26 mg Tablet] 1 each PO BID 12/01/15 Tamsulosin HCl 0.4 mg PO DAILY 12/01/15 Furosemide [Lasix -] 40 mg PO DAILY #30 tablet 12/07/15 Amlodipine Besylate 2.5 mg PO DAILY 11/04/16 Apixaban [Eliquis] 2.5 mg PO BID 11/04/16 Colchicine [Colcrys -] 0.6 mg PO DAILY 11/04/16 Linaclotide [Linzess] 145 mcg PO DAILY 11/04/16 Linagliptin [Tradjenta] 5 mg PO DAILY 11/04/16 Meclizine HCl [Antivert -] 25 mg PO TID PRN 11/04/16 Current Medications Albuterol/Ipratropium (Duoneb -) 1 amp NEB Q6H PRN PRN Reason: SHORTNESS OF BREATH Amlodipine Besylate (Norvasc -) 2.5 mg PO DAILY [facility] Last Admin: 11/06/16 09:24 Dose: 2.5 mg Aspirin (Ecotrin -) 81 mg PO DAILY [facility] Last Admin: 11/06/16 09:25 Dose: 81 mg Atorvastatin Calcium (Lipitor -) 20 mg PO HS [facility] Last Admin: 11/05/16 21:53 Dose: 20 mg Colchicine (Colcrys -) 0.6 mg PO Q3D@1000 [facility] Last Admin: 11/05/16 23:07 Dose: 0.6 mg Furosemide (Lasix Injection -) 40 mg IVPUSH DAILY [facility] Last Admin: 11/06/16 09:26 Dose: 40 mg Ceftriaxone Sodium (Rocephin 1gm Ivpb (Pre-Docked)) 50 mls @ 100 mls/hr IVPB DAILY [facility] Last Admin: 11/06/16 09:24 Dose: 100 mls/hr Dextrose/Sodium Chloride (D5-1/2ns -) 1,000 mls @ 42 mls/hr IV ASDIR [facility] Last Admin: 11/05/16 18:58 Dose: 42 mls/hr Meclizine HCl (Antivert -) 25 mg PO TID PRN PRN Reason: VERTIGO Non-Formulary Medication (Linaclotide [Linzess]) 145 mcg PO DAILY [facility] Ranitidine HCl (Zantac -) 150 mg PO BID [facility] Last Admin: 11/06/16 09:26 Dose: 150 mg Tamsulosin HCl (Flomax -) 0.4 mg PO DAILY@0830 [facility] Last Admin: 11/06/16 09:25 Dose: 0.4 mg Last Vital Signs Temp Pulse Resp BP Pulse Ox 97.8 F 78 20 123/63 100 11/06/16 06:00 11/06/16 06:00 11/06/16 06:00 11/06/16 06:00 11/05/16 22:00 Constitutional: Yes: Well Nourished, No Distress, Calm Eyes: Yes: WNL, Conjunctiva Clear, EOM Intact HENT: Yes: WNL, Atraumatic, Normocephalic Neck: Yes: WNL, Supple, Trachea Midline Respiratory: Yes: WNL, Regular, CTA Bilaterally Gastrointestinal: Yes: WNL, Normal Bowel Sounds Cardiovascular: Yes: WNL, Regular Rate and Rhythm Extremities: Yes: WNL Abnormal Lab Results 11/06/16 11/06/16 09:35 09:35 WBC 12.7 H RBC 3.15 L D Hgb 8.3 L D Hct 26.6 L D MCHC 31.4 L RDW 17.2 H BUN 41 H Creatinine 2.3 H Calcium 8.3 L Problem List - Problems (1) Acute exacerbation of CHF (congestive heart failure) Code(s): I50.9 - HEART FAILURE, UNSPECIFIED (2) Anemia Code(s): D64.9 - ANEMIA, UNSPECIFIED (3) Gout attack Code(s): M10.9 - GOUT, UNSPECIFIED Qualifiers: Gout site: foot Gout etiology: idiopathic (4) Acute on chronic diastolic (congestive) heart failure Code(s): I50.33 - ACUTE ON CHRONIC DIASTOLIC (CONGESTIVE) HEART FAILURE (5) CAD (coronary artery disease) Code(s): I25.10 - ATHSCL HEART DISEASE OF [place] CORONARY ARTERY W/O ANG PCTRS (6) Chest pain Code(s): R07.9 - CHEST PAIN, UNSPECIFIED (7) Chronic kidney disease Code(s): N18.9 - CHRONIC KIDNEY DISEASE, UNSPECIFIED (8) Cough Code(s): R05 - COUGH (9) DM (diabetes mellitus), type 2 with renal complications Code(s): E11.29 - TYPE 2 DIABETES MELLITUS W OTH DIABETIC KIDNEY COMPLICATION (10) Diabetes mellitus type II, controlled Code(s): E11.9 - TYPE 2 DIABETES MELLITUS WITHOUT COMPLICATIONS (11) HLD (hyperlipidemia) Code(s): E78.5 - HYPERLIPIDEMIA, UNSPECIFIED (12) Hypertension Code(s): I10 - ESSENTIAL (PRIMARY) HYPERTENSION (13) Osteoarthritis Code(s): M19.90 - UNSPECIFIED OSTEOARTHRITIS, UNSPECIFIED SITE (14) Pharyngitis Code(s): J02.9 - ACUTE PHARYNGITIS, UNSPECIFIED (15) SOB (shortness of breath) Code(s): R06.02 - SHORTNESS OF BREATH (16) Stented coronary artery Code(s): Z95.5 - PRESENCE OF CORONARY ANGIOPLASTY IMPLANT AND GRAFT (17) Volume overload Code(s): E87.70 - FLUID OVERLOAD, UNSPECIFIED Assessment/Plan acute gout attack chf systolic ischemic cmp htn dm s/p ICD Anemia -- anemia of chronic disease due to CKD ? ongoing gout attack eliquis on hold. stoo occult x1 neg. s/p 1 unit PRBCs check iron studies/B12/folate/TSH/fT4/SPEP/UPEP will follow
[2016-11-06] MEDS: DEXTROSE 5%-0.45% SALINE 1,000 ML IV SCH (18:59)
[2016-11-06] MEDS: ATORVASTATIN CA 20 MG TABLET (FP) PO SCH (21:34)
--- NOTE | 2016-11-06 22:35 | PN ---
Progress Note, Physician History of Present Illness: No new Complaints - Current Medication List Current Medications: Active Medications Albuterol/Ipratropium (Duoneb -) 1 amp NEB Q6H PRN PRN Reason: SHORTNESS OF BREATH Amlodipine Besylate (Norvasc -) 2.5 mg PO DAILY [facility] Last Admin: 11/06/16 09:24 Dose: 2.5 mg Aspirin (Ecotrin -) 81 mg PO DAILY [facility] Last Admin: 11/06/16 09:25 Dose: 81 mg Atorvastatin Calcium (Lipitor -) 20 mg PO HS [facility] Last Admin: 11/06/16 21:34 Dose: 20 mg Colchicine (Colcrys -) 0.6 mg PO Q3D@1000 [facility] Last Admin: 11/05/16 23:07 Dose: 0.6 mg Furosemide (Lasix Injection -) 40 mg IVPUSH DAILY [facility] Last Admin: 11/06/16 09:26 Dose: 40 mg Ceftriaxone Sodium (Rocephin 1gm Ivpb (Pre-Docked)) 50 mls @ 100 mls/hr IVPB DAILY [facility] Last Admin: 11/06/16 09:24 Dose: 100 mls/hr Dextrose/Sodium Chloride (D5-1/2ns -) 1,000 mls @ 42 mls/hr IV ASDIR [facility] Last Admin: 11/06/16 18:59 Dose: 42 mls/hr Meclizine HCl (Antivert -) 25 mg PO TID PRN PRN Reason: VERTIGO Non-Formulary Medication (Linaclotide [Linzess]) 145 mcg PO DAILY [facility] Ranitidine HCl (Zantac -) 150 mg PO BID [facility] Last Admin: 11/06/16 21:34 Dose: 150 mg Tamsulosin HCl (Flomax -) 0.4 mg PO DAILY@0830 [facility] Last Admin: 11/06/16 09:25 Dose: 0.4 mg - Objective Vital Signs: Vital Signs Temperature 97.6 F 11/06/16 21:17 Pulse Rate 72 11/06/16 21:17 Respiratory Rate 20 11/06/16 21:17 Blood Pressure 130/66 11/06/16 21:17 O2 Sat by Pulse Oximetry (%) 96 11/06/16 21:00 Cardiovascular: Yes: WNL, Regular Rate and Rhythm Respiratory: Yes: WNL, Regular, CTA Bilaterally Gastrointestinal: Yes: Normal Bowel Sounds, Soft Labs: CBC, BMP 11/06/16 09:35 11/06/16 09:35 INR, PTT INR 2.08 (0.82-1.09) H D 11/04/16 08:16 Problem List - Problems (1) Anemia Code(s): D64.9 - ANEMIA, UNSPECIFIED (2) Chest pain Code(s): R07.9 - CHEST PAIN, UNSPECIFIED (3) Dyspnea Code(s): R06.00 - DYSPNEA, UNSPECIFIED (4) CAD (coronary artery disease) Code(s): I25.10 - ATHSCL HEART DISEASE OF [place] CORONARY ARTERY W/O ANG PCTRS Qualifiers: Coronary Disease-Associated Artery/Lesion type: unspecified vessel or lesion type [place] vs. transplanted heart: unspecified whether [place] or transplanted heart Associated angina: without angina Qualified Code(s ): I25.10 - Atherosclerotic heart disease of [place] coronary artery without angina pectoris (5) Chronic kidney disease Code(s): N18.9 - CHRONIC KIDNEY DISEASE, UNSPECIFIED Qualifiers: Chronic kidney disease stage: unspecified stage Qualified Code(s): N18.9 - Chronic kidney disease, unspecified
[2016-11-07 07:14] LABS: BASOPHIL 0.6 % (0-2.0); EOSINOPHIL 1.8 % (0-4.5); MCH 27.2 pg (25.7-33.7); MCHC 31.9 g/dl (32.0-35.9); MEAN CELL VOLUME 85.1 fl (80-96); MEAN PLT VOLUME 8.1 fl (7.5-11.1); PLATELET COUNT 308 K/MM3 (134-434); RDW 17.1 % (11.9-15.9); WHITE BLOOD COUNT 10.4 K/mm3 (4.0-10.0)
[2016-11-07 07:31] LABS: INR 1.62 (0.82-1.09)
[2016-11-07 07:34] LABS: ACTIVATED PTT 33.6 SECONDS (26.9-34.4)
[2016-11-07 07:35] LABS: ALBUMIN 2.5 g/dl (3.4-5.0); BILIRUBIN,TOTAL 0.2 mg/dL (0.2-1.0); CALCIUM 8.3 mg/dL (8.5-10.1); CREATININE 2.3 mg/dL (0.7-1.3); TOT PROT 6.2 g/dl (6.4-8.2)
[2016-11-07 07:42] LABS: FERRITIN 42.667 ng/ml (16.4-293.9); FREE T4 1.25 ng/dl (0.76-1.16); THYROID STIMULATING HORMONE 0.4 uIU/ml (0.358-3.74)
--- NOTE | 2016-11-07 08:32 | CONSULT ---
Consult Consult Specialty:: Nephrology Referred by:: Dr Rick Reason for Consultation:: CKD - History of Present Illness Chief Complaint: Cough History of Present Illness: 80 with DM a1c 7.7 Ex smoker PPM HTN Has known CKD Cr been stable in 2 range over the last 5-7 years In with acute bronchitis Feels better - History Source History Provided By: Patient, Medical Record - Past Medical History Cardio/Vascular: Yes: CAD, CHF, HTN, Other (CHB s/p PPM) Gastrointestinal: Yes: Constipation Renal/: Yes: Renal Inusuff Musculoskeletal: Yes: Osteoarthritis, Other (Gout Uric acid 10) Endocrine: Yes: Diabetes Mellitus - Past Surgical History Past Surgical History: Yes: Permanent Pacemaker - Alcohol/Substance Use Hx Alcohol Use: No - Smoking History Smoking history: Former smoker Have you smoked in the past 12 months: No Aproximately how many cigarettes per day: 0 - Social History ADL: Independent History of Recent Travel: No Home Medications - Allergies Allergies/Adverse Reactions: Allergies Allergy/AdvReac Type Severity Reaction Status Date / Time No Known Drug Allergies Allergy Verified 11/04/16 07:25 - Home Medications Home Medications: Ambulatory Orders Aspirin [Aspirin EC] 81 mg PO DAILY 12/01/15 Atorvastatin Ca [Lipitor] 20 mg PO HS 12/01/15 Glimepiride 4 mg PO BID 12/01/15 Ranitidine [Zantac -] 150 mg PO BID 12/01/15 Ranolazine [Ranexa] 500 mg PO BID 12/01/15 Sacubitril/Valsartan [Entresto 24 mg-26 mg Tablet] 1 each PO BID 12/01/15 Tamsulosin HCl 0.4 mg PO DAILY 12/01/15 Furosemide [Lasix -] 40 mg PO DAILY #30 tablet 12/07/15 Amlodipine Besylate 2.5 mg PO DAILY 11/04/16 Apixaban [Eliquis] 2.5 mg PO BID 11/04/16 Colchicine [Colcrys -] 0.6 mg PO DAILY 11/04/16 Linaclotide [Linzess] 145 mcg PO DAILY 11/04/16 Linagliptin [Tradjenta] 5 mg PO DAILY 11/04/16 Meclizine HCl [Antivert -] 25 mg PO TID PRN 11/04/16 Review of Systems Unable to obtain ROS, reason: feels better still with a Nephrology Consult - Height Height: 5 ft 7 in - Weight Weight: 220 lb - BMI Body Mass Index (BMI): 34.4 - Lab Results CBC,BMP: CBC, BMP 11/07/16 05:35 11/07/16 05:35 Anion Gap: Anion Gap Anion Gap 8 (8-16) 11/07/16 05:35 - Imaging Chest X-ray: Report Reviewed Ultrasound: Report Reviewed Other: Other (ECHO report reviewed) - Physical Examination Vital Signs: Vital Signs Temperature 97 F L 11/07/16 06:32 Pulse Rate 70 11/07/16 06:32 Respiratory Rate 20 11/07/16 06:32 Blood Pressure 112/54 11/07/16 06:32 O2 Sat by Pulse Oximetry (%) 96 11/06/16 21:00 Edema: Yes Assessment/Plan 80 with DM PPM LV EF preserved pulm HTN EX SMOKER in with bronchitis DM fair control on trajenta 5 dailt should continue that Cr stable in the 2 range CRCl 27 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
--- NOTE | 2016-11-07 08:57 | PN ---
Progress Note, Physician History of Present Illness: seen and examined today in nad. no overnight events. no new complaints. - Current Medication List Current Medications: Active Medications Albuterol/Ipratropium (Duoneb -) 1 amp NEB Q6H PRN PRN Reason: SHORTNESS OF BREATH Amlodipine Besylate (Norvasc -) 2.5 mg PO DAILY [facility] Last Admin: 11/06/16 09:24 Dose: 2.5 mg Aspirin (Ecotrin -) 81 mg PO DAILY [facility] Last Admin: 11/06/16 09:25 Dose: 81 mg Atorvastatin Calcium (Lipitor -) 20 mg PO HS [facility] Last Admin: 11/06/16 21:34 Dose: 20 mg Colchicine (Colcrys -) 0.6 mg PO Q3D@1000 [facility] Last Admin: 11/05/16 23:07 Dose: 0.6 mg Furosemide (Lasix Injection -) 40 mg IVPUSH DAILY [facility] Last Admin: 11/06/16 09:26 Dose: 40 mg Ceftriaxone Sodium (Rocephin 1gm Ivpb (Pre-Docked)) 50 mls @ 100 mls/hr IVPB DAILY [facility] Last Admin: 11/06/16 09:24 Dose: 100 mls/hr Meclizine HCl (Antivert -) 25 mg PO TID PRN PRN Reason: VERTIGO Non-Formulary Medication (Linaclotide [Linzess]) 145 mcg PO DAILY [facility] Ranitidine HCl (Zantac -) 150 mg PO BID [facility] Last Admin: 11/06/16 21:34 Dose: 150 mg Tamsulosin HCl (Flomax -) 0.4 mg PO DAILY@0830 [facility] Last Admin: 11/06/16 09:25 Dose: 0.4 mg - Objective Vital Signs: Vital Signs Temperature 97 F L 11/07/16 06:32 Pulse Rate 70 11/07/16 06:32 Respiratory Rate 20 11/07/16 06:32 Blood Pressure 112/54 11/07/16 06:32 O2 Sat by Pulse Oximetry (%) 96 11/06/16 21:00 Constitutional: Yes: No Distress, Calm, Obese Eyes: Yes: WNL, Conjunctiva Clear, EOM Intact, PERRL HENT: Yes: WNL, Atraumatic, Normocephalic Neck: Yes: WNL, Supple, Trachea Midline Cardiovascular: Yes: Regular Rate and Rhythm, S1, S2. No: Bradycardia, Tachycardia, Pulse Irregular, Bruit, JVD, Gallop, Murmur, Rub, S3, S4, Varicosities Respiratory: Yes: Regular, Diminished. No: Rales, Rhonchi Gastrointestinal: Yes: WNL, Normal Bowel Sounds, Soft. No: Distention, Tenderness Musculoskeletal: Yes: WNL Extremities: Yes: WNL Edema: Yes Edema: LLE: Trace, RLE: Trace Peripheral Pulses WNL: Yes Peripheral Pulses: Left Doralis Pedis: 2+, Right Dorsalis Pedis: 2+ Integumentary: Yes: WNL Neurological: Yes: WNL, Alert, Oriented, Cran Nerves II-XII Intact ...Motor Strength: WNL Psychiatric: Yes: WNL, Alert, Oriented Labs: CBC, BMP 11/07/16 05:35 11/07/16 05:35 INR, PTT INR 1.62 (0.82-1.09) H 11/07/16 05:35 - ....Imaging Chest X-ray: Report Reviewed, Image Reviewed EKG: Report Reviewed, Image Reviewed Other: Report Reviewed, Image Reviewed (tele-nsr, vpaced, pvcs, couplets) Problem List - Problems (1) Acute on chronic diastolic (congestive) heart failure Code(s): I50.33 - ACUTE ON CHRONIC DIASTOLIC (CONGESTIVE) HEART FAILURE (2) CAD (coronary artery disease) Code(s): I25.10 - ATHSCL HEART DISEASE OF [place] CORONARY ARTERY W/O ANG PCTRS (3) Chest pain Code(s): R07.9 - CHEST PAIN, UNSPECIFIED (4) Chronic kidney disease Code(s): N18.9 - CHRONIC KIDNEY DISEASE, UNSPECIFIED (5) DM (diabetes mellitus), type 2 with renal complications Code(s): E11.29 - TYPE 2 DIABETES MELLITUS W OTH DIABETIC KIDNEY COMPLICATION (6) HLD (hyperlipidemia) Code(s): E78.5 - HYPERLIPIDEMIA, UNSPECIFIED (7) Hypertension Code(s): I10 - ESSENTIAL (PRIMARY) HYPERTENSION (8) SOB (shortness of breath) Code(s): R06.02 - SHORTNESS OF BREATH (9) Stented coronary artery Code(s): Z95.5 - PRESENCE OF CORONARY ANGIOPLASTY IMPLANT AND GRAFT Assessment/Plan acute gout flair acute on chronic combined systolic/diastolic CHF cough/sob ICM htn dm s/p ICD anemia plan severe anemia down to Hgb 6.8, improved after prbcs, anemia work up in progress Hold eliquis for now until etiology of anemia determined and treated, if not due to bleed then resume eliquis medical rx for gout cont iv lasix for now today, after this am dose can transition to po lasix monitor I/Os and daily weights ok to dc telemetry chest pain-atypical, cardiac enzymes wnl x1, unlikely ACS cont home med rx for known CAD
[2016-11-07] MEDS: TAMSULOSIN HCL 0.4 MG CAP.ER.24H (FP) PO SCH (10:04)
[2016-11-07] MEDS: RANITIDINE HCL 150 MG TABLET (FP) PO SCH ×2 (10:04→22:26)
[2016-11-07] MEDS: amLODIPine BESYLATE 2.5 MG TABLET (FP) PO SCH (10:04)
[2016-11-07] MEDS: ASPIRIN COATED 81 MG TABLET.EC PO SCH (10:04)
[2016-11-07] MEDS: CEFTRIAXONE 50 ML IVPB SCH (10:04)
[2016-11-07] MEDS: FUROSEMIDE 40 MG/4 ML INJECTABLE VIAL IVPUSH SCH (10:04)
[2016-11-07] MEDS: SACUBITRIL/VALSARTAN 24 MG-26 MG TABLET PO SCH ×2 (10:05→22:26)
[2016-11-07] MEDS: COLCHICINE 0.6 MG TABLET (FP) PO SCH (10:06)
--- NOTE | 2016-11-07 11:13 | PN ---
Progress Note, Physician History of Present Illness: pulmonary alert,feeling better,-sob,less cough. - Current Medication List Current Medications: Active Medications Albuterol/Ipratropium (Duoneb -) 1 amp NEB Q6H PRN PRN Reason: SHORTNESS OF BREATH Amlodipine Besylate (Norvasc -) 2.5 mg PO DAILY [facility] Last Admin: 11/07/16 10:04 Dose: 2.5 mg Aspirin (Ecotrin -) 81 mg PO DAILY [facility] Last Admin: 11/07/16 10:04 Dose: 81 mg Atorvastatin Calcium (Lipitor -) 20 mg PO HS [facility] Last Admin: 11/06/16 21:34 Dose: 20 mg Colchicine (Colcrys -) 0.6 mg PO Q3D@1000 [facility] Last Admin: 11/07/16 10:06 Dose: 0.6 mg Furosemide (Lasix Injection -) 40 mg IVPUSH DAILY [facility] Last Admin: 11/07/16 10:04 Dose: 40 mg Ceftriaxone Sodium (Rocephin 1gm Ivpb (Pre-Docked)) 50 mls @ 100 mls/hr IVPB DAILY [facility] Last Admin: 11/07/16 10:04 Dose: 100 mls/hr Meclizine HCl (Antivert -) 25 mg PO TID PRN PRN Reason: VERTIGO Non-Formulary Medication (Linaclotide [Linzess]) 145 mcg PO DAILY [facility] Ranitidine HCl (Zantac -) 150 mg PO BID [facility] Last Admin: 11/07/16 10:04 Dose: 150 mg Tamsulosin HCl (Flomax -) 0.4 mg PO DAILY@0830 [facility] Last Admin: 11/07/16 10:04 Dose: 0.4 mg - Objective Vital Signs: Vital Signs Temperature 98 F 11/07/16 10:00 Pulse Rate 60 11/07/16 10:00 Respiratory Rate 20 11/07/16 10:00 Blood Pressure 130/64 11/07/16 10:00 O2 Sat by Pulse Oximetry (%) 96 11/06/16 21:00 Constitutional: Yes: Well Nourished, Calm Eyes: Yes: WNL HENT: Yes: WNL Neck: Yes: WNL Cardiovascular: Yes: Regular Rate and Rhythm, S1, S2 Respiratory: Yes: Diminished Gastrointestinal: Yes: Normal Bowel Sounds, Soft Extremities: Yes: WNL Edema: No Labs: CBC, BMP 11/07/16 05:35 11/07/16 05:35 INR, PTT INR 1.62 (0.82-1.09) H 11/07/16 05:35 Problem List - Problems (1) Acute exacerbation of CHF (congestive heart failure) Code(s): I50.9 - HEART FAILURE, UNSPECIFIED (2) Anemia Code(s): D64.9 - ANEMIA, UNSPECIFIED (3) Gout attack Code(s): M10.9 - GOUT, UNSPECIFIED Qualifiers: Gout site: foot Gout etiology: idiopathic (4) Acute on chronic diastolic (congestive) heart failure Code(s): I50.33 - ACUTE ON CHRONIC DIASTOLIC (CONGESTIVE) HEART FAILURE (5) CAD (coronary artery disease) Code(s): I25.10 - ATHSCL HEART DISEASE OF [place] CORONARY ARTERY W/O ANG PCTRS (6) Chest pain Code(s): R07.9 - CHEST PAIN, UNSPECIFIED (7) Chronic kidney disease Code(s): N18.9 - CHRONIC KIDNEY DISEASE, UNSPECIFIED (8) Cough Code(s): R05 - COUGH (9) DM (diabetes mellitus), type 2 with renal complications Code(s): E11.29 - TYPE 2 DIABETES MELLITUS W OTH DIABETIC KIDNEY COMPLICATION (10) SOB (shortness of breath) Code(s): R06.02 - SHORTNESS OF BREATH (11) Stented coronary artery Code(s): Z95.5 - PRESENCE OF CORONARY ANGIOPLASTY IMPLANT AND GRAFT (12) Volume overload Code(s): E87.70 - FLUID OVERLOAD, UNSPECIFIED (13) Bronchitis Code(s): J40 - BRONCHITIS, NOT SPECIFIED ACUTE OR CHRONIC Assessment/Plan IMP DECOMPENSATED CHF ACUTE BRONCHITIS ASHD S/P STENT ACUTE ON CHRONIC RENAL FAILURE SEVERE ANEMIA GOUT PLAN IV LASIX INHALED BROCHODILATORS ANTIBIOTICS MONITOR H+H NASAL O2 MONITOR RENAL FUNCTION DR GARNER Problem List - Problems (1) Acute exacerbation of CHF (congestive heart failure) Code(s): I50.9 - HEART FAILURE, UNSPECIFIED (2) Anemia Code(s): D64.9 - ANEMIA, UNSPECIFIED (3) Gout attack Code(s): M10.9 - GOUT, UNSPECIFIED Qualifiers: Gout site: foot Gout etiology: idiopathic (4) Acute on chronic diastolic (congestive) heart failure Code(s): I50.33 - ACUTE ON CHRONIC DIASTOLIC (CONGESTIVE) HEART FAILURE (5) CAD (coronary artery disease) Code(s): I25.10 - ATHSCL HEART DISEASE OF [place] CORONARY ARTERY W/O ANG PCTRS (6) Chest pain Code(s): R07.9 - CHEST PAIN, UNSPECIFIED (7) Chronic kidney disease Code(s): N18.9 - CHRONIC KIDNEY DISEASE, UNSPECIFIED (8) Cough Code(s): R05 - COUGH (9) DM (diabetes mellitus), type 2 with renal complications Code(s): E11.29 - TYPE 2 DIABETES MELLITUS W OTH DIABETIC KIDNEY COMPLICATION (10) SOB (shortness of breath) Code(s): R06.02 - SHORTNESS OF BREATH (11) Stented coronary artery Code(s): Z95.5 - PRESENCE OF CORONARY ANGIOPLASTY IMPLANT AND GRAFT (12) Volume overload Code(s): E87.70 - FLUID OVERLOAD, UNSPECIFIED (13) Bronchitis Code(s): J40 - BRONCHITIS, NOT SPECIFIED ACUTE OR CHRONIC
[2016-11-07] MEDS: ATORVASTATIN CA 20 MG TABLET (FP) PO SCH (22:26)
--- NOTE | 2016-11-07 22:46 | PN ---
Progress Note, Physician History of Present Illness: No new Complaints - Current Medication List Current Medications: Active Medications Albuterol/Ipratropium (Duoneb -) 1 amp NEB Q6H PRN PRN Reason: SHORTNESS OF BREATH Amlodipine Besylate (Norvasc -) 2.5 mg PO DAILY [facility] Last Admin: 11/07/16 10:04 Dose: 2.5 mg Aspirin (Ecotrin -) 81 mg PO DAILY [facility] Last Admin: 11/07/16 10:04 Dose: 81 mg Atorvastatin Calcium (Lipitor -) 20 mg PO HS [facility] Last Admin: 11/07/16 22:26 Dose: 20 mg Colchicine (Colcrys -) 0.6 mg PO Q3D@1000 [facility] Last Admin: 11/07/16 10:06 Dose: 0.6 mg Furosemide (Lasix Injection -) 40 mg IVPUSH DAILY [facility] Last Admin: 11/07/16 10:04 Dose: 40 mg Ceftriaxone Sodium (Rocephin 1gm Ivpb (Pre-Docked)) 50 mls @ 100 mls/hr IVPB DAILY [facility] Last Admin: 11/07/16 10:04 Dose: 100 mls/hr Meclizine HCl (Antivert -) 25 mg PO TID PRN PRN Reason: VERTIGO Non-Formulary Medication (Linaclotide [Linzess]) 145 mcg PO DAILY [facility] Ranitidine HCl (Zantac -) 150 mg PO BID [facility] Last Admin: 11/07/16 22:26 Dose: 150 mg Tamsulosin HCl (Flomax -) 0.4 mg PO DAILY@0830 [facility] Last Admin: 11/07/16 10:04 Dose: 0.4 mg - Objective Vital Signs: Vital Signs Temperature 98.0 F 11/07/16 22:20 Pulse Rate 75 11/07/16 22:20 Respiratory Rate 18 11/07/16 22:20 Blood Pressure 130/65 11/07/16 22:20 O2 Sat by Pulse Oximetry (%) 96 11/07/16 09:00 Cardiovascular: Yes: WNL, Regular Rate and Rhythm Respiratory: Yes: WNL, Regular, CTA Bilaterally Gastrointestinal: Yes: WNL, Normal Bowel Sounds, Soft Labs: CBC, BMP 11/07/16 05:35 11/07/16 05:35 INR, PTT INR 1.62 (0.82-1.09) H 11/07/16 05:35 Problem List - Problems (1) Anemia Code(s): D64.9 - ANEMIA, UNSPECIFIED (2) Chest pain Code(s): R07.9 - CHEST PAIN, UNSPECIFIED (3) Dyspnea Code(s): R06.00 - DYSPNEA, UNSPECIFIED (4) CAD (coronary artery disease) Code(s): I25.10 - ATHSCL HEART DISEASE OF [place] CORONARY ARTERY W/O ANG PCTRS Qualifiers: Coronary Disease-Associated Artery/Lesion type: unspecified vessel or lesion type [place] vs. transplanted heart: unspecified whether [place] or transplanted heart Associated angina: without angina Qualified Code(s ): I25.10 - Atherosclerotic heart disease of [place] coronary artery without angina pectoris (5) Chronic kidney disease Code(s): N18.9 - CHRONIC KIDNEY DISEASE, UNSPECIFIED Qualifiers: Chronic kidney disease stage: unspecified stage Qualified Code(s): N18.9 - Chronic kidney disease, unspecified
--- NOTE | 2016-11-08 09:54 | PN ---
Progress Note, Physician Chief Complaint: no distress denies chest pain or SOB - Current Medication List Current Medications: Active Medications Albuterol/Ipratropium (Duoneb -) 1 amp NEB Q6H PRN PRN Reason: SHORTNESS OF BREATH Amlodipine Besylate (Norvasc -) 2.5 mg PO DAILY [facility] Last Admin: 11/07/16 10:04 Dose: 2.5 mg Aspirin (Ecotrin -) 81 mg PO DAILY [facility] Last Admin: 11/07/16 10:04 Dose: 81 mg Atorvastatin Calcium (Lipitor -) 20 mg PO HS [facility] Last Admin: 11/07/16 22:26 Dose: 20 mg Colchicine (Colcrys -) 0.6 mg PO Q3D@1000 [facility] Last Admin: 11/07/16 10:06 Dose: 0.6 mg Furosemide (Lasix Injection -) 40 mg IVPUSH DAILY [facility] Last Admin: 11/07/16 10:04 Dose: 40 mg Ceftriaxone Sodium (Rocephin 1gm Ivpb (Pre-Docked)) 50 mls @ 100 mls/hr IVPB DAILY [facility] Last Admin: 11/07/16 10:04 Dose: 100 mls/hr Meclizine HCl (Antivert -) 25 mg PO TID PRN PRN Reason: VERTIGO Non-Formulary Medication (Linaclotide [Linzess]) 145 mcg PO DAILY [facility] Ranitidine HCl (Zantac -) 150 mg PO BID [facility] Last Admin: 11/07/16 22:26 Dose: 150 mg Tamsulosin HCl (Flomax -) 0.4 mg PO DAILY@0830 [facility] Last Admin: 11/07/16 10:04 Dose: 0.4 mg - Objective Vital Signs: Vital Signs Temperature 97.7 F 11/08/16 07:18 Pulse Rate 80 11/08/16 07:18 Respiratory Rate 18 11/08/16 07:18 Blood Pressure 132/72 11/08/16 07:18 O2 Sat by Pulse Oximetry (%) 98 11/07/16 21:00 Constitutional: Yes: No Distress Cardiovascular: Yes: Regular Rate and Rhythm Respiratory: Yes: CTA Bilaterally Gastrointestinal: Yes: Soft, Abdomen, Obese Edema: No Neurological: Yes: Alert Labs: CBC, BMP 11/07/16 05:35 11/07/16 05:35 INR, PTT INR 1.62 (0.82-1.09) H 11/07/16 05:35 Laboratory Tests 11/05/16 11/06/16 11/07/16 05:30 09:35 05:35 WBC 10.4 H Hgb 6.8 L* 8.3 L D 8.4 L Hct 26.3 L Plt Count 308 INR Creatinine Stool Occult Blood 11/07/16 11/07/16 11/08/16 05:35 05:35 08:10 WBC Hgb Hct Plt Count INR 1.62 H Creatinine 2.3 H Stool Occult Blood Positive Assessment/Plan Assessment/Plan Acute gout flair Accute on chronic combined systolic/diastolic CHF ICM s/p ICD htn dm anemia Plan: severe anemia down to Hgb 6.8, improved after prbcs, anemia work up in progress Hold eliquis for now until etiology of anemia determined and treated, if not due to bleed then resume eliquis medical rx for gout change lasix to PO cont home med rx for known CAD
[2016-11-08] MEDS: COLCHICINE 0.6 MG TABLET (FP) PO SCH (11:20)
[2016-11-08] MEDS: FUROSEMIDE 40 MG TABLET (FP) PO SCH (11:20)
[2016-11-08] MEDS: CEFTRIAXONE 50 ML IVPB SCH (11:20)
[2016-11-08] MEDS: TAMSULOSIN HCL 0.4 MG CAP.ER.24H (FP) PO SCH (11:21)
[2016-11-08] MEDS: amLODIPine BESYLATE 2.5 MG TABLET (FP) PO SCH (11:21)
[2016-11-08] MEDS: ASPIRIN COATED 81 MG TABLET.EC PO SCH (11:21)
[2016-11-08] MEDS: RANITIDINE HCL 150 MG TABLET (FP) PO SCH ×2 (11:21→21:00)
[2016-11-08] MEDS: SACUBITRIL/VALSARTAN 24 MG-26 MG TABLET PO SCH ×2 (13:13→21:01)
--- NOTE | 2016-11-08 15:11 | PN ---
Progress Note, Physician History of Present Illness: pulmonary alert,feeling better,-sob,less cough - Current Medication List Current Medications: Active Medications Albuterol/Ipratropium (Duoneb -) 1 amp NEB Q6H PRN PRN Reason: SHORTNESS OF BREATH Amlodipine Besylate (Norvasc -) 2.5 mg PO DAILY [facility] Last Admin: 11/08/16 11:21 Dose: 2.5 mg Aspirin (Ecotrin -) 81 mg PO DAILY [facility] Last Admin: 11/08/16 11:21 Dose: 81 mg Atorvastatin Calcium (Lipitor -) 20 mg PO HS [facility] Last Admin: 11/07/16 22:26 Dose: 20 mg Colchicine (Colcrys -) 0.6 mg PO Q3D@1000 [facility] Last Admin: 11/08/16 11:20 Dose: 0.6 mg Furosemide (Lasix -) 60 mg PO DAILY [facility] Last Admin: 11/08/16 11:20 Dose: 60 mg Ceftriaxone Sodium (Rocephin 1gm Ivpb (Pre-Docked)) 50 mls @ 100 mls/hr IVPB DAILY [facility] Last Admin: 11/08/16 11:20 Dose: 100 mls/hr Meclizine HCl (Antivert -) 25 mg PO TID PRN PRN Reason: VERTIGO Non-Formulary Medication (Linaclotide [Linzess]) 145 mcg PO DAILY [facility] Ranitidine HCl (Zantac -) 150 mg PO BID [facility] Last Admin: 11/08/16 11:21 Dose: 150 mg Tamsulosin HCl (Flomax -) 0.4 mg PO DAILY@0830 [facility] Last Admin: 11/08/16 11:21 Dose: 0.4 mg - Objective Vital Signs: Vital Signs Temperature 97.2 F L 11/08/16 14:59 Pulse Rate 71 11/08/16 14:59 Respiratory Rate 20 11/08/16 14:59 Blood Pressure 129/65 11/08/16 14:59 O2 Sat by Pulse Oximetry (%) 98 11/07/16 21:00 Constitutional: Yes: Well Nourished, Calm Eyes: Yes: WNL HENT: Yes: WNL Neck: Yes: WNL Cardiovascular: Yes: Regular Rate and Rhythm, S1, S2 Respiratory: Yes: CTA Bilaterally Gastrointestinal: Yes: WNL Extremities: Yes: WNL Edema: No Labs: CBC, BMP 11/07/16 05:35 11/07/16 05:35 INR, PTT INR 1.62 (0.82-1.09) H 11/07/16 05:35 Problem List - Problems (1) Acute exacerbation of CHF (congestive heart failure) Code(s): I50.9 - HEART FAILURE, UNSPECIFIED (2) Anemia Code(s): D64.9 - ANEMIA, UNSPECIFIED (3) Gout attack Code(s): M10.9 - GOUT, UNSPECIFIED Qualifiers: Gout site: foot Gout etiology: idiopathic (4) Acute on chronic diastolic (congestive) heart failure Code(s): I50.33 - ACUTE ON CHRONIC DIASTOLIC (CONGESTIVE) HEART FAILURE (5) CAD (coronary artery disease) Code(s): I25.10 - ATHSCL HEART DISEASE OF [place] CORONARY ARTERY W/O ANG PCTRS (6) Chest pain Code(s): R07.9 - CHEST PAIN, UNSPECIFIED (7) Chronic kidney disease Code(s): N18.9 - CHRONIC KIDNEY DISEASE, UNSPECIFIED (8) Cough Code(s): R05 - COUGH (9) DM (diabetes mellitus), type 2 with renal complications Code(s): E11.29 - TYPE 2 DIABETES MELLITUS W OTH DIABETIC KIDNEY COMPLICATION (10) SOB (shortness of breath) Code(s): R06.02 - SHORTNESS OF BREATH (11) Stented coronary artery Code(s): Z95.5 - PRESENCE OF CORONARY ANGIOPLASTY IMPLANT AND GRAFT (12) Volume overload Code(s): E87.70 - FLUID OVERLOAD, UNSPECIFIED (13) Bronchitis Code(s): J40 - BRONCHITIS, NOT SPECIFIED ACUTE OR CHRONIC Assessment/Plan IMP DECOMPENSATED CHF ACUTE BRONCHITIS ASHD S/P STENT ACUTE ON CHRONIC RENAL FAILURE SEVERE ANEMIA GOUT PLAN LASIX PO INHALED BROCHODILATORS ANTIBIOTICS MONITOR H+H NASAL O2 MONITOR RENAL FUNCTION DR GARNER Problem List - Problems (1) Acute exacerbation of CHF (congestive heart failure) Code(s): I50.9 - HEART FAILURE, UNSPECIFIED (2) Anemia Code(s): D64.9 - ANEMIA, UNSPECIFIED (3) Gout attack Code(s): M10.9 - GOUT, UNSPECIFIED Qualifiers: Gout site: foot Gout etiology: idiopathic (4) Acute on chronic diastolic (congestive) heart failure Code(s): I50.33 - ACUTE ON CHRONIC DIASTOLIC (CONGESTIVE) HEART FAILURE (5) CAD (coronary artery disease) Code(s): I25.10 - ATHSCL HEART DISEASE OF [place] CORONARY ARTERY W/O ANG PCTRS (6) Chest pain Code(s): R07.9 - CHEST PAIN, UNSPECIFIED (7) Chronic kidney disease Code(s): N18.9 - CHRONIC KIDNEY DISEASE, UNSPECIFIED (8) Cough Code(s): R05 - COUGH (9) DM (diabetes mellitus), type 2 with renal complications Code(s): E11.29 - TYPE 2 DIABETES MELLITUS W OTH DIABETIC KIDNEY COMPLICATION (10) SOB (shortness of breath) Code(s): R06.02 - SHORTNESS OF BREATH (11) Stented coronary artery Code(s): Z95.5 - PRESENCE OF CORONARY ANGIOPLASTY IMPLANT AND GRAFT (12) Volume overload Code(s): E87.70 - FLUID OVERLOAD, UNSPECIFIED (13) Bronchitis Code(s): J40 - BRONCHITIS, NOT SPECIFIED ACUTE OR CHRONIC
[2016-11-08] MEDS: PATIENT'S OWN MEDICATION (NON-FORMULARY) (Linaclotide [Linzess] 145 MCG) PO SCH ×3 (16:50→16:55)
[2016-11-08] MEDS ORDERED: PT OWN MED DRAWER 7, Y5N ONE (20:12)
--- NOTE | 2016-11-08 20:13 | PN ---
Progress Note, Physician - Current Medication List Current Medications: Active Medications Albuterol/Ipratropium (Duoneb -) 1 amp NEB Q6H PRN PRN Reason: SHORTNESS OF BREATH Amlodipine Besylate (Norvasc -) 2.5 mg PO DAILY [facility] Last Admin: 11/08/16 11:21 Dose: 2.5 mg Aspirin (Ecotrin -) 81 mg PO DAILY [facility] Last Admin: 11/08/16 11:21 Dose: 81 mg Atorvastatin Calcium (Lipitor -) 20 mg PO HS [facility] Last Admin: 11/07/16 22:26 Dose: 20 mg Colchicine (Colcrys -) 0.6 mg PO Q3D@1000 [facility] Last Admin: 11/08/16 11:20 Dose: 0.6 mg Furosemide (Lasix -) 60 mg PO DAILY [facility] Last Admin: 11/08/16 11:20 Dose: 60 mg Ceftriaxone Sodium (Rocephin 1gm Ivpb (Pre-Docked)) 50 mls @ 100 mls/hr IVPB DAILY [facility] Last Admin: 11/08/16 11:20 Dose: 100 mls/hr Meclizine HCl (Antivert -) 25 mg PO TID PRN PRN Reason: VERTIGO Ranitidine HCl (Zantac -) 150 mg PO BID [facility] Last Admin: 11/08/16 11:21 Dose: 150 mg Tamsulosin HCl (Flomax -) 0.4 mg PO DAILY@0830 [facility] Last Admin: 11/08/16 11:21 Dose: 0.4 mg - Objective Vital Signs: Vital Signs Temperature 97.9 F 11/08/16 19:04 Pulse Rate 73 11/08/16 19:04 Respiratory Rate 18 11/08/16 19:04 Blood Pressure 143/73 11/08/16 19:04 O2 Sat by Pulse Oximetry (%) 100 11/08/16 09:00 Constitutional: Yes: No Distress HENT: Yes: Atraumatic Neck: Yes: Supple Gastrointestinal: Yes: Normal Bowel Sounds Extremities: Yes: WNL Neurological: Yes: Alert, Oriented Labs: CBC, BMP 11/07/16 05:35 11/07/16 05:35 INR, PTT INR 1.62 (0.82-1.09) H 11/07/16 05:35 Problem List - Problems (1) Acute exacerbation of CHF (congestive heart failure) Code(s): I50.9 - HEART FAILURE, UNSPECIFIED (2) Anemia Code(s): D64.9 - ANEMIA, UNSPECIFIED (3) Chronic kidney disease Code(s): N18.9 - CHRONIC KIDNEY DISEASE, UNSPECIFIED (4) DM (diabetes mellitus), type 2 with renal complications Code(s): E11.29 - TYPE 2 DIABETES MELLITUS W OTH DIABETIC KIDNEY COMPLICATION (5) HLD (hyperlipidemia) Code(s): E78.5 - HYPERLIPIDEMIA, UNSPECIFIED (6) Hypertension Code(s): I10 - ESSENTIAL (PRIMARY) HYPERTENSION (7) Osteoarthritis Code(s): M19.90 - UNSPECIFIED OSTEOARTHRITIS, UNSPECIFIED SITE (8) Stented coronary artery Code(s): Z95.5 - PRESENCE OF CORONARY ANGIOPLASTY IMPLANT AND GRAFT (9) Volume overload Code(s): E87.70 - FLUID OVERLOAD, UNSPECIFIED Assessment/Plan Acute gout flair 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
[2016-11-08] MEDS: ATORVASTATIN CA 20 MG TABLET (FP) PO SCH (21:00)
[2016-11-09] MEDS: GLIMEPIRIDE 2 MG TABLET (FP) PO SCH (06:27)
[2016-11-09 08:06] LABS: HEMATOCRIT 27.9 % (37.5-51.0)
--- NOTE | 2016-11-09 09:16 | PN ---
Progress Note (short form) - Note Progress Note: RENAL 81 WITH DM GOUT ACUTE BRONCHITIS EF PRESERVED CKD CR STABLE AT 2.3 ON LASIX 60 PO DAILY [facility] STABLE FEELS BETTER HAS HIS SECOND EPISODE OF GOUT ON COLCHICINE ADVISED TO AVOID HIGH URIC ACID FOODS ANEMIC QUITE FE DEF WILL GIVE VENOFER 100 DAILY FOR 3 DOSES IF GETS DISCHARGED MUST FUP IN THE OFFICE FOR THE FE INFUSION AND CKD FUP GI WUP ? AVOID NSAIDS WILL FOLLOW CALL FOR QUESTIONS
[2016-11-09] MEDS ORDERED: IRON SUCROSE INJECTION 100 MG in SODIUM CHLORIDE 95 ML IVPB ONE (09:30)
--- NOTE | 2016-11-09 10:15 | PN ---
Progress Note, Physician Chief Complaint: no acute distress - Current Medication List Current Medications: Active Medications Albuterol/Ipratropium (Duoneb -) 1 amp NEB Q6H PRN PRN Reason: SHORTNESS OF BREATH Amlodipine Besylate (Norvasc -) 2.5 mg PO DAILY [facility] Aspirin (Ecotrin -) 81 mg PO DAILY [facility] Last Admin: 11/08/16 11:21 Dose: 81 mg Atorvastatin Calcium (Lipitor -) 20 mg PO HS [facility] Last Admin: 11/08/16 21:00 Dose: 20 mg Colchicine (Colcrys -) 0.6 mg PO Q3D@1000 [facility] Last Admin: 11/08/16 11:20 Dose: 0.6 mg Furosemide (Lasix -) 60 mg PO DAILY [facility] Last Admin: 11/08/16 11:20 Dose: 60 mg Glimepiride (Amaryl -) 2 mg PO DAILY@0700 [facility] Last Admin: 11/09/16 06:27 Dose: 2 mg Ceftriaxone Sodium (Rocephin 1gm Ivpb (Pre-Docked)) 50 mls @ 100 mls/hr IVPB DAILY [facility] Last Admin: 11/08/16 11:20 Dose: 100 mls/hr Meclizine HCl (Antivert -) 25 mg PO TID PRN PRN Reason: VERTIGO Ranitidine HCl (Zantac -) 150 mg PO BID [facility] Last Admin: 11/08/16 21:00 Dose: 150 mg Tamsulosin HCl (Flomax -) 0.4 mg PO DAILY@0830 [facility] Last Admin: 11/08/16 11:21 Dose: 0.4 mg - Objective Vital Signs: Vital Signs Temperature 98.2 F 11/09/16 06:23 Pulse Rate 73 11/09/16 06:23 Respiratory Rate 20 11/09/16 06:23 Blood Pressure 121/53 11/09/16 06:23 O2 Sat by Pulse Oximetry (%) 100 11/08/16 20:53 Constitutional: Yes: No Distress Eyes: Yes: Conjunctiva Clear Cardiovascular: Yes: Regular Rate and Rhythm Respiratory: Yes: CTA Bilaterally Gastrointestinal: Yes: Soft (non-tender) Edema: Yes Edema: LLE: 1+, RLE: 1+ Neurological: Yes: Alert Labs: CBC, BMP 11/07/16 05:35 11/07/16 05:35 INR, PTT INR 1.62 (0.82-1.09) H 11/07/16 05:35 Laboratory Tests 11/07/16 11/07/16 05:35 05:35 WBC 10.4 H Hgb 8.4 L Plt Count 308 Potassium 4.2 Assessment/Plan Assessment/Plan Acute gout flair 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 medical rx for gout change lasix to PO cont home med rx for known CAD
--- NOTE | 2016-11-09 11:40 | PN ---
Progress Note (short form) - Note Progress Note: PULMONARY Denies shortness of breath, cough or wheezing. c/o gout pain. Last Vital Signs Temp Pulse Resp BP Pulse Ox 98.2 F 73 20 121/53 100 11/09/16 06:23 11/09/16 06:23 11/09/16 06:23 11/09/16 06:23 11/08/16 20:53 Gen: NAD at rest Heart: RRR Lung: distant breath sounds, no wheezes Abd: soft, nontender Ext: no edema CBC, BMP 11/07/16 05:35 11/07/16 05:35 Active Medications Albuterol/Ipratropium (Duoneb -) 1 amp NEB Q6H PRN PRN Reason: SHORTNESS OF BREATH Amlodipine Besylate (Norvasc -) 2.5 mg PO DAILY [facility] Aspirin (Ecotrin -) 81 mg PO DAILY [facility] Last Admin: 11/08/16 11:21 Dose: 81 mg Atorvastatin Calcium (Lipitor -) 20 mg PO HS [facility] Last Admin: 11/08/16 21:00 Dose: 20 mg Colchicine (Colcrys -) 0.6 mg PO Q3D@1000 [facility] Last Admin: 11/08/16 11:20 Dose: 0.6 mg Furosemide (Lasix -) 60 mg PO DAILY [facility] Last Admin: 11/08/16 11:20 Dose: 60 mg Glimepiride (Amaryl -) 2 mg PO DAILY@0700 [facility] Last Admin: 11/09/16 06:27 Dose: 2 mg Ceftriaxone Sodium (Rocephin 1gm Ivpb (Pre-Docked)) 50 mls @ 100 mls/hr IVPB DAILY [facility] Last Admin: 11/08/16 11:20 Dose: 100 mls/hr Meclizine HCl (Antivert -) 25 mg PO TID PRN PRN Reason: VERTIGO Ranitidine HCl (Zantac -) 150 mg PO BID [facility] Last Admin: 11/08/16 21:00 Dose: 150 mg Tamsulosin HCl (Flomax -) 0.4 mg PO DAILY@0830 [facility] Last Admin: 11/08/16 11:21 Dose: 0.4 mg A/P Acute on Chronic Systolic/Diastolic Heart Failure Acute on Chronic Renal Failure CAD Acute Bronchitis Gout Anemia - lasix - monitor urine output, creatinine - pain control - continue antibiotics - inhaled bronchodiltors as needed - DVT prophylaxis
[2016-11-09] MEDS: TAMSULOSIN HCL 0.4 MG CAP.ER.24H (FP) PO SCH (11:46)
[2016-11-09] MEDS: CEFTRIAXONE 50 ML IVPB SCH (11:46)
[2016-11-09] MEDS: RANITIDINE HCL 150 MG TABLET (FP) PO SCH ×2 (11:46→21:12)
[2016-11-09] MEDS: amLODIPine BESYLATE 2.5 MG TABLET (FP) PO SCH (11:46)
[2016-11-09] MEDS: ASPIRIN COATED 81 MG TABLET.EC PO SCH (11:46)
[2016-11-09] MEDS: FUROSEMIDE 40 MG TABLET (FP) PO SCH (11:46)
[2016-11-09] MEDS: SACUBITRIL/VALSARTAN 24 MG-26 MG TABLET PO SCH ×2 (11:56→21:12)
--- NOTE | 2016-11-09 17:39 | PN ---
Progress Note, Physician History of Present Illness: stable - Current Medication List Current Medications: Active Medications Albuterol/Ipratropium (Duoneb -) 1 amp NEB Q6H PRN PRN Reason: SHORTNESS OF BREATH Amlodipine Besylate (Norvasc -) 2.5 mg PO DAILY [facility] Last Admin: 11/09/16 11:46 Dose: 2.5 mg Aspirin (Ecotrin -) 81 mg PO DAILY [facility] Last Admin: 11/09/16 11:46 Dose: 81 mg Atorvastatin Calcium (Lipitor -) 20 mg PO HS [facility] Last Admin: 11/08/16 21:00 Dose: 20 mg Colchicine (Colcrys -) 0.6 mg PO Q3D@1000 [facility] Last Admin: 11/08/16 11:20 Dose: 0.6 mg Furosemide (Lasix -) 60 mg PO DAILY [facility] Last Admin: 11/09/16 11:46 Dose: 60 mg Glimepiride (Amaryl -) 2 mg PO DAILY@0700 [facility] Last Admin: 11/09/16 06:27 Dose: 2 mg Ceftriaxone Sodium (Rocephin 1gm Ivpb (Pre-Docked)) 50 mls @ 100 mls/hr IVPB DAILY [facility] Last Admin: 11/09/16 11:46 Dose: 100 mls/hr Meclizine HCl (Antivert -) 25 mg PO TID PRN PRN Reason: VERTIGO Ranitidine HCl (Zantac -) 150 mg PO BID [facility] Last Admin: 11/09/16 11:46 Dose: 150 mg Tamsulosin HCl (Flomax -) 0.4 mg PO DAILY@0830 [facility] Last Admin: 11/09/16 11:46 Dose: 0.4 mg - Objective Vital Signs: Vital Signs Temperature 97.5 F L 11/09/16 15:25 Pulse Rate 82 11/09/16 15:25 Respiratory Rate 20 11/09/16 15:25 Blood Pressure 131/70 11/09/16 15:25 O2 Sat by Pulse Oximetry (%) 100 11/09/16 10:00 Constitutional: Yes: No Distress HENT: Yes: Atraumatic Neck: Yes: Supple Cardiovascular: Yes: Regular Rate and Rhythm Respiratory: Yes: CTA Bilaterally Gastrointestinal: Yes: Normal Bowel Sounds Extremities: Yes: WNL Neurological: Yes: Alert, Oriented Labs: CBC, BMP 11/07/16 05:35 11/07/16 05:35 INR, PTT INR 1.62 (0.82-1.09) H 11/07/16 05:35 Problem List - Problems (1) Acute exacerbation of CHF (congestive heart failure) Code(s): I50.9 - HEART FAILURE, UNSPECIFIED (2) Anemia Code(s): D64.9 - ANEMIA, UNSPECIFIED (3) Chronic kidney disease Code(s): N18.9 - CHRONIC KIDNEY DISEASE, UNSPECIFIED (4) DM (diabetes mellitus), type 2 with renal complications Code(s): E11.29 - TYPE 2 DIABETES MELLITUS W OTH DIABETIC KIDNEY COMPLICATION (5) HLD (hyperlipidemia) Code(s): E78.5 - HYPERLIPIDEMIA, UNSPECIFIED (6) Hypertension Code(s): I10 - ESSENTIAL (PRIMARY) HYPERTENSION (7) Osteoarthritis Code(s): M19.90 - UNSPECIFIED OSTEOARTHRITIS, UNSPECIFIED SITE (8) Stented coronary artery Code(s): Z95.5 - PRESENCE OF CORONARY ANGIOPLASTY IMPLANT AND GRAFT (9) Volume overload Code(s): E87.70 - FLUID OVERLOAD, UNSPECIFIED Assessment/Plan Acute gout flair 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
--- NOTE | 2016-11-09 17:55 | PN ---
Progress Note (short form) - Note Progress Note: PAtient seen and examined Last Vital Signs Temp Pulse Resp BP Pulse Ox 97.5 F L 82 20 131/70 100 11/09/16 15:25 11/09/16 15:25 11/09/16 15:25 11/09/16 15:25 11/09/16 10:00 HEENT: LINDA, EOM Intact Oropharynx: No thrush, No mucositis Cor: RSR, No murmurs, No gallops Lungs: Clear to P&A Abd: Soft, Normal bowel sounds, No organomegaly Ext:No significant edema Abnormal Lab Results 11/07/16 05:35 Hct 27.9 L Current Medications Albuterol/Ipratropium (Duoneb -) 1 amp NEB Q6H PRN PRN Reason: SHORTNESS OF BREATH Amlodipine Besylate (Norvasc -) 2.5 mg PO DAILY [facility] Last Admin: 11/09/16 11:46 Dose: 2.5 mg Aspirin (Ecotrin -) 81 mg PO DAILY [facility] Last Admin: 11/09/16 11:46 Dose: 81 mg Atorvastatin Calcium (Lipitor -) 20 mg PO HS [facility] Last Admin: 11/08/16 21:00 Dose: 20 mg Colchicine (Colcrys -) 0.6 mg PO Q3D@1000 [facility] Last Admin: 11/08/16 11:20 Dose: 0.6 mg Furosemide (Lasix -) 60 mg PO DAILY [facility] Last Admin: 11/09/16 11:46 Dose: 60 mg Glimepiride (Amaryl -) 2 mg PO DAILY@0700 [facility] Last Admin: 11/09/16 06:27 Dose: 2 mg Ceftriaxone Sodium (Rocephin 1gm Ivpb (Pre-Docked)) 50 mls @ 100 mls/hr IVPB DAILY [facility] Last Admin: 11/09/16 11:46 Dose: 100 mls/hr Meclizine HCl (Antivert -) 25 mg PO TID PRN PRN Reason: VERTIGO Ranitidine HCl (Zantac -) 150 mg PO BID [facility] Last Admin: 11/09/16 11:46 Dose: 150 mg Tamsulosin HCl (Flomax -) 0.4 mg PO DAILY@0830 [facility] Last Admin: 11/09/16 11:46 Dose: 0.4 mg A/P 81 y/o patient with DM, CHF, acute gout attack, Anemia -- anemia of chronic disease due to CKD ? ongoing gout attack + IRON DEFICIENCY--iron saturation low eliquis on hold. stool occult x1 neg. s/p 1 unit PRBCs B12/folate/TSH--nl SPEP/UPEP--pending IRon studies s/o IRon deficiency anemia --11% will get gi consult---to consider w/u when medically stabilized
--- NOTE | 2016-11-09 19:55 | CONSULT ---
Consult Consult Specialty:: GI Referred by:: Dr Pearce Reason for Consultation:: iron deficiency anemia - History of Present Illness History of Present Illness: 81 y/o male was admitted with URI, CHF, CKD, DM and noted to have iron deficiency anemia needing blood transfusion. He denies any GI symptoms, including melena, rectal bleeding dysphagia, abdominal pain, unexplained weight loss. He is on chronic aspirin use. - History Source History Provided By: Patient, Family Member - Past Medical History Cardio/Vascular: Yes: CAD, CHF, HTN, Other (CHB s/p PPM) Gastrointestinal: Yes: Constipation Renal/: Yes: Renal Inusuff Musculoskeletal: Yes: Osteoarthritis, Other (Gout Uric acid 10) Endocrine: Yes: Diabetes Mellitus - Past Surgical History Past Surgical History: Yes: Cholecystectomy, Permanent Pacemaker - Alcohol/Substance Use Hx Alcohol Use: No - Smoking History Smoking history: Former smoker Have you smoked in the past 12 months: No Aproximately how many cigarettes per day: 0 - Social History ADL: Independent History of Recent Travel: No Home Medications - Allergies Allergies/Adverse Reactions: Allergies Allergy/AdvReac Type Severity Reaction Status Date / Time No Known Drug Allergies Allergy Verified 11/04/16 07:25 - Home Medications Home Medications: Ambulatory Orders Aspirin [Aspirin EC] 81 mg PO DAILY 12/01/15 Atorvastatin Ca [Lipitor] 20 mg PO HS 12/01/15 Glimepiride 4 mg PO BID 12/01/15 Ranitidine [Zantac -] 150 mg PO BID 12/01/15 Ranolazine [Ranexa] 500 mg PO BID 12/01/15 Sacubitril/Valsartan [Entresto 24 mg-26 mg Tablet] 1 each PO BID 12/01/15 Tamsulosin HCl 0.4 mg PO DAILY 12/01/15 Furosemide [Lasix -] 40 mg PO DAILY #30 tablet 12/07/15 Amlodipine Besylate 2.5 mg PO DAILY 11/04/16 Apixaban [Eliquis] 2.5 mg PO BID 11/04/16 Colchicine [Colcrys -] 0.6 mg PO DAILY 11/04/16 Linaclotide [Linzess] 145 mcg PO DAILY 11/04/16 Linagliptin [Tradjenta] 5 mg PO DAILY 11/04/16 Meclizine HCl [Antivert -] 25 mg PO TID PRN 11/04/16 Physical Exam-GI Vital Signs: Vital Signs Temperature 97.5 F L 11/09/16 15:25 Pulse Rate 82 11/09/16 15:25 Respiratory Rate 20 11/09/16 15:25 Blood Pressure 131/70 11/09/16 15:25 O2 Sat by Pulse Oximetry (%) 100 11/09/16 10:00 Constitutional: Yes: Well Nourished, Poor Hygeine HENT: Yes: Atraumatic Neck: Yes: Supple Cardiovascular: Yes: Regular Rate and Rhythm Respiratory: Yes: CTA Bilaterally ...Palpate: Yes: Soft. No: Firm/Rigid, Guarding, Hepatomegaly, Mass, Pulsatile Mass, Splenomegaly, Tenderness Labs: CBC, BMP 11/07/16 05:35 11/07/16 05:35 INR, PTT INR 1.62 (0.82-1.09) H 11/07/16 05:35 Hepatic Panel Total Bilirubin 0.2 mg/dL (0.2-1.0) 11/07/16 05:35 AST 15 U/L (15-37) D 11/07/16 05:35 ALT 13 U/L (12-78) 11/07/16 05:35 Alkaline Phosphatase 47 U/L (45-117) 11/07/16 05:35 Albumin 2.5 g/dl (3.4-5.0) L 11/07/16 05:35 Problem List - Problems (1) Iron deficiency anemia Assessment/Plan: r/o occult gi bleeding R> would recommend GI w/u including EGD and Colonoscopy to be done as an outpatient as the opt is still recovering from the URI and mild CHF. Discussed risk of EGD with the patient and her daughter Uzma, made aware to ff-up in 2 weeks Code(s): D50.9 - IRON DEFICIENCY ANEMIA, UNSPECIFIED
[2016-11-09] MEDS ORDERED: PT OWN MED DRAWER 7, Y5N ONE (20:15)
[2016-11-09] MEDS ORDERED: INSULIN (NOVOLOG) ASPART 100 UNITS/ML 10ML VIAL ONE (20:18)
[2016-11-09] MEDS: ATORVASTATIN CA 20 MG TABLET (FP) PO SCH (21:12)
[2016-11-10] MEDS: GLIMEPIRIDE 2 MG TABLET (FP) PO SCH (06:19)
[2016-11-10] MEDS: FERROUS SO4 325 MG TABLET (FP) PO SCH ×3 (08:56→17:02)
[2016-11-10] MEDS: TAMSULOSIN HCL 0.4 MG CAP.ER.24H (FP) PO SCH (08:56)
[2016-11-10] MEDS: RANITIDINE HCL 150 MG TABLET (FP) PO SCH ×2 (09:32→22:28)
[2016-11-10] MEDS: ASPIRIN COATED 81 MG TABLET.EC PO SCH (09:32)
[2016-11-10] MEDS: FUROSEMIDE 40 MG TABLET (FP) PO SCH (09:32)
[2016-11-10] MEDS: amLODIPine BESYLATE 2.5 MG TABLET (FP) PO SCH (09:33)
[2016-11-10] MEDS: CEFTRIAXONE 50 ML IVPB SCH (09:33)
[2016-11-10] MEDS ORDERED: PT OWN MED DRAWER 7, Y5N ONE (09:36)
[2016-11-10] MEDS: SACUBITRIL/VALSARTAN 24 MG-26 MG TABLET PO SCH ×2 (09:37→22:27)
--- NOTE | 2016-11-10 09:46 | PN ---
Progress Note, Physician Chief Complaint: no distress GI consult reviewed-outpatient work up recommended Patient states gout flare improving - Current Medication List Current Medications: Active Medications Albuterol/Ipratropium (Duoneb -) 1 amp NEB Q6H PRN PRN Reason: SHORTNESS OF BREATH Amlodipine Besylate (Norvasc -) 2.5 mg PO DAILY [facility] Last Admin: 11/10/16 09:33 Dose: 2.5 mg Aspirin (Ecotrin -) 81 mg PO DAILY [facility] Last Admin: 11/10/16 09:32 Dose: 81 mg Atorvastatin Calcium (Lipitor -) 20 mg PO HS [facility] Last Admin: 11/09/16 21:12 Dose: 20 mg Colchicine (Colcrys -) 0.6 mg PO Q3D@1000 [facility] Last Admin: 11/08/16 11:20 Dose: 0.6 mg Ferrous Sulfate (Feosol -) 325 mg PO TIDCM [facility] Last Admin: 11/10/16 08:56 Dose: 325 mg Furosemide (Lasix -) 60 mg PO DAILY [facility] Last Admin: 11/10/16 09:32 Dose: 60 mg Glimepiride (Amaryl -) 2 mg PO DAILY@0700 [facility] Last Admin: 11/10/16 06:19 Dose: 2 mg Ceftriaxone Sodium (Rocephin 1gm Ivpb (Pre-Docked)) 50 mls @ 100 mls/hr IVPB DAILY [facility] Last Admin: 11/10/16 09:33 Dose: 100 mls/hr Meclizine HCl (Antivert -) 25 mg PO TID PRN PRN Reason: VERTIGO Ranitidine HCl (Zantac -) 150 mg PO BID [facility] Last Admin: 11/10/16 09:32 Dose: 150 mg Tamsulosin HCl (Flomax -) 0.4 mg PO DAILY@0830 [facility] Last Admin: 11/10/16 08:56 Dose: 0.4 mg - Objective Vital Signs: Vital Signs Temperature 98.1 F 11/10/16 06:00 Pulse Rate 76 11/10/16 06:00 Respiratory Rate 20 11/10/16 06:00 Blood Pressure 137/66 11/10/16 06:00 O2 Sat by Pulse Oximetry (%) 96 11/09/16 20:26 Constitutional: Yes: No Distress Eyes: Yes: Conjunctiva Clear Cardiovascular: Yes: Regular Rate and Rhythm Respiratory: Yes: CTA Bilaterally Gastrointestinal: Yes: Soft Edema: No Neurological: Yes: Alert, Oriented Labs: CBC, BMP 11/07/16 05:35 11/07/16 05:35 INR, PTT INR 1.62 (0.82-1.09) H 11/07/16 05:35 Assessment/Plan Assessment/Plan Acute gout flair 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 Risks of full AC at this time seem to outweigh potential benefits. Advise completion of outpatient GI work soon after discharge to allow for re- introduction of AC when safe to do so.
--- NOTE | 2016-11-10 10:55 | PN ---
Progress Note (short form) - Note Progress Note: Patient seen and examined Denies chest pain, SOB, dyspnea, GI problems of nausea, emesis, diarrhea, constipation. Denies dysuria, hematuria. Complains of pains in feet likely secondary to gout. Presented with acute bronchitis. Anemia with elevated creatinine - (long standing),and low serum FE. Low B-12 of 252 pg%. Reverse a/g ratio -prior normal protein studies according to renal hematest positive stools on 11/08. Last Vital Signs Temp Pulse Resp BP Pulse Ox 98.1 F 76 20 137/66 96 11/10/16 06:00 11/10/16 06:00 11/10/16 06:00 11/10/16 06:00 11/09/16 20:26 HEENT: LINDA, EOM Intact Cor: RSR, No murmurs, No gallops Lungs: Clear to P&A Abd: Soft, Normal bowel sounds, No organomegaly, distended Ext:No significant edema Skin: No rashes, Integument intact CBC, BMP 11/07/16 05:35 11/07/16 05:35 Current Medications Generic Name Dose Route Start Last Admin Trade Name Freq PRN Reason Stop Dose Admin Albuterol/Ipratropium 1 amp 11/04/16 23:03 Duoneb - NEB Q6H PRN SHORTNESS OF BREATH Amlodipine Besylate 2.5 mg 11/08/16 21:15 11/10/16 09:33 Norvasc - PO 2.5 mg DAILY [facility] Administration Aspirin 81 mg 11/05/16 10:00 11/10/16 09:32 Ecotrin - PO 81 mg DAILY [facility] Administration Atorvastatin Calcium 20 mg 11/05/16 22:00 11/09/16 21:12 Lipitor - PO 20 mg HS [facility] Administration Colchicine 0.6 mg 11/05/16 23:00 11/08/16 11:20 Colcrys - PO 0.6 mg Q3D@1000 [facility] Administration Ferrous Sulfate 325 mg 11/10/16 08:00 11/10/16 08:56 Feosol - PO 325 mg TIDCM [facility] Administration Furosemide 60 mg 11/08/16 10:00 11/10/16 09:32 Lasix - PO 60 mg DAILY [facility] Administration Glimepiride 2 mg 11/09/16 07:00 11/10/16 06:19 Amaryl - PO 2 mg DAILY@0700 [facility] Administration Ceftriaxone Sodium 50 mls @ 100 mls/hr 11/05/16 10:00 11/10/16 09:33 Rocephin 1gm Ivpb (Pre-Docked) IVPB 100 mls/hr DAILY [facility] Administration Meclizine HCl 25 mg 11/04/16 22:55 Antivert - PO TID PRN [facility] Ranitidine HCl 150 mg 11/05/16 10:00 11/10/16 09:32 Zantac - PO 150 mg BID [facility] Administration Tamsulosin HCl 0.4 mg 11/05/16 08:30 11/10/16 08:56 Flomax - PO 0.4 mg DAILY@0830 [facility] Administration Impression: Problem List - Problems (1) Bronchitis Assessment/Plan: on ceftriaxone Code(s): J40 - BRONCHITIS, NOT SPECIFIED ACUTE OR CHRONIC (2) Gout attack Assessment/Plan: under therapy Code(s): M10.9 - GOUT, UNSPECIFIED Qualifiers: Gout site: foot Gout etiology: idiopathic (3) Acute on chronic diastolic (congestive) heart failure Code(s): I50.33 - ACUTE ON CHRONIC DIASTOLIC (CONGESTIVE) HEART FAILURE (4) Anemia Assessment/Plan: Multifactorial Iron deficiency - hematest positive stools B-12 deficiency-- 252pg%- for MMA,HCS, IF AB ,APCA, then B-12 therapy Reverse---a/g ratio-- to check protein studies. Code(s): D64.9 - ANEMIA, UNSPECIFIED (5) Iron deficiency anemia Assessment/Plan: Received IV Venofer Will need GI work up with hematest positive stools. Code(s): D50.9 - IRON DEFICIENCY ANEMIA, UNSPECIFIED
--- NOTE | 2016-11-10 15:02 | PN ---
Progress Note (short form) - Note Progress Note: PULMONARY SITTING ON SIDE OF BED DENIES CHEST PAIN/SOB VSS ANICTERIC DISTANT BUT CLEAR S1S2 BS+ DIMINISHED B/L LOWER EXT EDEMA LABS/MEDS/NOTES/IMAGING REVIEWED Acute on Chronic Systolic/Diastolic Heart Failure Acute on Chronic Renal Failure CAD Acute Bronchitis Gout Anemia - lasix - monitor urine output, creatinine - pain control - continue antibiotics - inhaled bronchodiltors as needed - DVT prophylaxis Chas BACON MD
--- NOTE | 2016-11-10 19:47 | PN ---
Progress Note, Physician History of Present Illness: No new complaints - Current Medication List Current Medications: Active Medications Albuterol/Ipratropium (Duoneb -) 1 amp NEB Q6H PRN PRN Reason: SHORTNESS OF BREATH Amlodipine Besylate (Norvasc -) 2.5 mg PO DAILY [facility] Last Admin: 11/10/16 09:33 Dose: 2.5 mg Aspirin (Ecotrin -) 81 mg PO DAILY [facility] Last Admin: 11/10/16 09:32 Dose: 81 mg Atorvastatin Calcium (Lipitor -) 20 mg PO HS [facility] Last Admin: 11/09/16 21:12 Dose: 20 mg Colchicine (Colcrys -) 0.6 mg PO Q3D@1000 [facility] Last Admin: 11/08/16 11:20 Dose: 0.6 mg Cyanocobalamin (Vitamin B12 Injection -) 1,000 mcg IM Q7D@1000 [facility] Ferrous Sulfate (Feosol -) 325 mg PO TIDCM [facility] Last Admin: 11/10/16 17:02 Dose: 325 mg Furosemide (Lasix -) 60 mg PO DAILY [facility] Last Admin: 11/10/16 09:32 Dose: 60 mg Glimepiride (Amaryl -) 2 mg PO DAILY@0700 [facility] Last Admin: 11/10/16 06:19 Dose: 2 mg Ceftriaxone Sodium (Rocephin 1gm Ivpb (Pre-Docked)) 50 mls @ 100 mls/hr IVPB DAILY [facility] Last Admin: 11/10/16 09:33 Dose: 100 mls/hr Meclizine HCl (Antivert -) 25 mg PO TID PRN PRN Reason: VERTIGO Ranitidine HCl (Zantac -) 150 mg PO BID [facility] Last Admin: 11/10/16 09:32 Dose: 150 mg Tamsulosin HCl (Flomax -) 0.4 mg PO DAILY@0830 [facility] Last Admin: 11/10/16 08:56 Dose: 0.4 mg - Objective Vital Signs: Vital Signs Temperature 97.6 F 11/10/16 18:18 Pulse Rate 74 11/10/16 18:18 Respiratory Rate 20 11/10/16 18:18 Blood Pressure 150/72 11/10/16 18:18 O2 Sat by Pulse Oximetry (%) 97 11/10/16 09:00 Cardiovascular: Yes: WNL, Regular Rate and Rhythm Respiratory: Yes: WNL, Regular, CTA Bilaterally Gastrointestinal: Yes: WNL, Normal Bowel Sounds, Soft Labs: CBC, BMP 11/07/16 05:35 11/07/16 05:35 INR, PTT INR 1.62 (0.82-1.09) H 11/07/16 05:35 Problem List - Problems (1) Anemia Code(s): D64.9 - ANEMIA, UNSPECIFIED (2) Chest pain Code(s): R07.9 - CHEST PAIN, UNSPECIFIED (3) Dyspnea Code(s): R06.00 - DYSPNEA, UNSPECIFIED (4) CAD (coronary artery disease) Code(s): I25.10 - ATHSCL HEART DISEASE OF [place] CORONARY ARTERY W/O ANG PCTRS Qualifiers: Coronary Disease-Associated Artery/Lesion type: unspecified vessel or lesion type [place] vs. transplanted heart: unspecified whether [place] or transplanted heart Associated angina: without angina Qualified Code(s ): I25.10 - Atherosclerotic heart disease of [place] coronary artery without angina pectoris (5) Chronic kidney disease Code(s): N18.9 - CHRONIC KIDNEY DISEASE, UNSPECIFIED Qualifiers: Chronic kidney disease stage: unspecified stage Qualified Code(s): N18.9 - Chronic kidney disease, unspecified
[2016-11-10] MEDS: ATORVASTATIN CA 20 MG TABLET (FP) PO SCH (22:28)
[2016-11-11] MEDS: GLIMEPIRIDE 2 MG TABLET (FP) PO SCH (06:21)
[2016-11-11 08:01] LABS: BASOPHIL 0.5 % (0-2.0); EOSINOPHIL 2.8 % (0-4.5); MCH 26.8 pg (25.7-33.7); MCHC 31.5 g/dl (32.0-35.9); MEAN CELL VOLUME 84.9 fl (80-96); MEAN PLT VOLUME 7.7 fl (7.5-11.1); NEUTROPHILS 68.4 % (42.8-82.8); PLATELET COUNT 372 K/MM3 (134-434); RDW 17.6 % (11.9-15.9); WHITE BLOOD COUNT 11.5 K/mm3 (4.0-10.0)
[2016-11-11] MEDS: TAMSULOSIN HCL 0.4 MG CAP.ER.24H (FP) PO SCH (09:07)
[2016-11-11] MEDS: FERROUS SO4 325 MG TABLET (FP) PO SCH ×3 (09:07→17:27)
[2016-11-11] MEDS ORDERED: PT OWN MED DRAWER 7, Y5N ONE ×2 (09:48→17:26)
[2016-11-11] MEDS: FUROSEMIDE 40 MG TABLET (FP) PO SCH (09:58)
[2016-11-11] MEDS: amLODIPine BESYLATE 2.5 MG TABLET (FP) PO SCH (09:58)
[2016-11-11] MEDS: RANITIDINE HCL 150 MG TABLET (FP) PO SCH ×2 (09:59→21:40)
[2016-11-11] MEDS: ASPIRIN COATED 81 MG TABLET.EC PO SCH (09:59)
[2016-11-11] MEDS: COLCHICINE 0.6 MG TABLET (FP) PO SCH (10:00)
[2016-11-11] MEDS: SACUBITRIL/VALSARTAN 24 MG-26 MG TABLET PO SCH ×2 (10:01→21:40)
[2016-11-11] MEDS: CEFTRIAXONE 50 ML IVPB SCH (10:02)
[2016-11-11 12:59] LABS: ALBUMIN 2.8 g/dl (3.4-5.0); BILIRUBIN,TOTAL 0.2 mg/dL (0.2-1.0); CALCIUM 8.8 mg/dL (8.5-10.1); CREATININE 2.2 mg/dL (0.7-1.3); TOT PROT 6.8 g/dl (6.4-8.2)
--- NOTE | 2016-11-11 13:28 | PN ---
Progress Note (short form) - Note Progress Note: PULMONARY SITTING ON SIDE OF BED DENIES CHEST PAIN/SOB WANTS TO GO HOME VSS ANICTERIC DISTANT BUT CLEAR S1S2 BS+ DIMINISHED B/L LOWER EXT EDEMA LABS/MEDS/NOTES/IMAGING REVIEWED Acute on Chronic Systolic/Diastolic Heart Failure Acute on Chronic Renal Failure CAD Acute Bronchitis Gout Anemia - lasix - monitor urine output, creatinine - pain control - continue antibiotics - inhaled bronchodiltors as needed - DVT prophylaxis Chas BACON MD
--- NOTE | 2016-11-11 20:40 | PN ---
Progress Note, Physician History of Present Illness: No new complaints - Current Medication List Current Medications: Active Medications Albuterol/Ipratropium (Duoneb -) 1 amp NEB Q6H PRN PRN Reason: SHORTNESS OF BREATH Amlodipine Besylate (Norvasc -) 2.5 mg PO DAILY [facility] Last Admin: 11/11/16 09:58 Dose: 2.5 mg Aspirin (Ecotrin -) 81 mg PO DAILY [facility] Last Admin: 11/11/16 09:59 Dose: 81 mg Atorvastatin Calcium (Lipitor -) 20 mg PO HS [facility] Last Admin: 11/10/16 22:28 Dose: 20 mg Colchicine (Colcrys -) 0.6 mg PO Q3D@1000 [facility] Last Admin: 11/11/16 10:00 Dose: 0.6 mg Cyanocobalamin (Vitamin B12 Injection -) 1,000 mcg IM Q7D@1000 [facility] Ferrous Sulfate (Feosol -) 325 mg PO TIDCM [facility] Last Admin: 11/11/16 17:27 Dose: 325 mg Furosemide (Lasix -) 60 mg PO DAILY [facility] Last Admin: 11/11/16 09:58 Dose: 60 mg Glimepiride (Amaryl -) 2 mg PO DAILY@0700 [facility] Last Admin: 11/11/16 06:21 Dose: 2 mg Ceftriaxone Sodium (Rocephin 1gm Ivpb (Pre-Docked)) 50 mls @ 100 mls/hr IVPB DAILY [facility] Last Admin: 11/11/16 10:02 Dose: 100 mls/hr Meclizine HCl (Antivert -) 25 mg PO TID PRN PRN Reason: VERTIGO Ranitidine HCl (Zantac -) 150 mg PO BID [facility] Last Admin: 11/11/16 09:59 Dose: 150 mg Tamsulosin HCl (Flomax -) 0.4 mg PO DAILY@0830 [facility] Last Admin: 11/11/16 09:07 Dose: 0.4 mg - Objective Vital Signs: Vital Signs Temperature 97.7 F 11/11/16 19:14 Pulse Rate 75 11/11/16 19:14 Respiratory Rate 18 11/11/16 19:14 Blood Pressure 136/65 11/11/16 19:14 O2 Sat by Pulse Oximetry (%) 98 11/11/16 09:00 Constitutional: Yes: No Distress Neck: Yes: Supple Cardiovascular: Yes: WNL, Regular Rate and Rhythm Respiratory: Yes: WNL, Regular, CTA Bilaterally Gastrointestinal: Yes: WNL, Normal Bowel Sounds, Soft Labs: CBC, BMP 11/11/16 06:00 11/11/16 06:00 INR, PTT INR 1.62 (0.82-1.09) H 11/07/16 05:35 Problem List - Problems (1) Dyspnea Assessment/Plan: Acute bronchitis Cont IV ceftriaxone Cont duoneb Will repeat wbc in am wc is slightly increased still Cultures have remained negative Code(s): R06.00 - DYSPNEA, UNSPECIFIED (2) Acute on chronic diastolic (congestive) heart failure Assessment/Plan: Cont lasix Pt is on diovan Code(s): I50.33 - ACUTE ON CHRONIC DIASTOLIC (CONGESTIVE) HEART FAILURE (3) Anemia Assessment/Plan: FE def anemia Cont Feso4 S/P transfusion PRBC's Further w/u including EGD/colonscopy as outpt once resp infection resolved Code(s): D64.9 - ANEMIA, UNSPECIFIED (4) Acute on chronic renal failure Code(s): N17.9 - ACUTE KIDNEY FAILURE, UNSPECIFIED N18.9 - CHRONIC KIDNEY DISEASE, UNSPECIFIED (5) Hypertension Assessment/Plan: BP stable Cont norvasc/asa/diovan Code(s): I10 - ESSENTIAL (PRIMARY) HYPERTENSION (6) DM (diabetes mellitus), type 2 with renal complications Assessment/Plan: Cont amaryl Code(s): E11.29 - TYPE 2 DIABETES MELLITUS W OTH DIABETIC KIDNEY COMPLICATION (7) HLD (hyperlipidemia) Assessment/Plan: Cont lipitor Code(s): E78.5 - HYPERLIPIDEMIA, UNSPECIFIED (8) Osteoarthritis Code(s): M19.90 - UNSPECIFIED OSTEOARTHRITIS, UNSPECIFIED SITE (9) CAD (coronary artery disease) Code(s): I25.10 - ATHSCL HEART DISEASE OF [place] CORONARY ARTERY W/O ANG PCTRS (10) Gout attack Assessment/Plan: Cont colcrys Code(s): M10.9 - GOUT, UNSPECIFIED Qualifiers: Gout site: foot Gout etiology: idiopathic (11) BPH (benign prostatic hyperplasia) Assessment/Plan: Cont flomax Code(s): N40.0 - BENIGN PROSTATIC HYPERPLASIA WITHOUT LOWER URINRY TRACT SYMP
[2016-11-11] MEDS: ATORVASTATIN CA 20 MG TABLET (FP) PO SCH (21:39)
[2016-11-12] MEDS: GLIMEPIRIDE 2 MG TABLET (FP) PO SCH (06:40)
[2016-11-12 07:27] LABS: BASOPHIL 0.4 % (0-2.0); EOSINOPHIL 2.2 % (0-4.5); MCHC 31.8 g/dl (32.0-35.9); MEAN CELL VOLUME 84.9 fl (80-96); NEUTROPHILS 66.4 % (42.8-82.8); PLATELET COUNT 365 K/MM3 (134-434); RDW 17.5 % (11.9-15.9); WHITE BLOOD COUNT 11.6 K/mm3 (4.0-10.0)
[2016-11-12 07:57] LABS: ALBUMIN 2.8 g/dl (3.4-5.0); BILIRUBIN,TOTAL 0.2 mg/dL (0.2-1.0); CALCIUM 8.6 mg/dL (8.5-10.1); CREATININE 2.4 mg/dL (0.7-1.3); TOT PROT 6.4 g/dl (6.4-8.2)
[2016-11-12] MEDS: FERROUS SO4 325 MG TABLET (FP) PO SCH ×3 (08:58→18:00)
[2016-11-12] MEDS: TAMSULOSIN HCL 0.4 MG CAP.ER.24H (FP) PO SCH (08:58)
[2016-11-12] MEDS: CEFTRIAXONE 50 ML IVPB SCH (09:58)
[2016-11-12] MEDS: FUROSEMIDE 40 MG TABLET (FP) PO SCH (09:58)
[2016-11-12] MEDS: amLODIPine BESYLATE 2.5 MG TABLET (FP) PO SCH (09:59)
[2016-11-12] MEDS: ASPIRIN COATED 81 MG TABLET.EC PO SCH (09:59)
[2016-11-12] MEDS: RANITIDINE HCL 150 MG TABLET (FP) PO SCH ×2 (09:59→21:21)
[2016-11-12] MEDS: SACUBITRIL/VALSARTAN 24 MG-26 MG TABLET PO SCH ×2 (10:50→21:21)
[2016-11-12] MEDS ORDERED: PT OWN MED DRAWER 7, Y5N ONE (12:58)
[2016-11-12] MEDS: ATORVASTATIN CA 20 MG TABLET (FP) PO SCH (21:21)
--- NOTE | 2016-11-12 21:51 | PN ---
Progress Note, Physician History of Present Illness: No new complaints - Current Medication List Current Medications: Active Medications Albuterol/Ipratropium (Duoneb -) 1 amp NEB Q6H PRN PRN Reason: SHORTNESS OF BREATH Amlodipine Besylate (Norvasc -) 2.5 mg PO DAILY [facility] Last Admin: 11/12/16 09:59 Dose: 2.5 mg Aspirin (Ecotrin -) 81 mg PO DAILY [facility] Last Admin: 11/12/16 09:59 Dose: 81 mg Atorvastatin Calcium (Lipitor -) 20 mg PO HS [facility] Last Admin: 11/12/16 21:21 Dose: 20 mg Colchicine (Colcrys -) 0.6 mg PO Q3D@1000 [facility] Last Admin: 11/11/16 10:00 Dose: 0.6 mg Cyanocobalamin (Vitamin B12 Injection -) 1,000 mcg IM Q7D@1000 [facility] Ferrous Sulfate (Feosol -) 325 mg PO TIDCM [facility] Last Admin: 11/12/16 18:00 Dose: 325 mg Furosemide (Lasix -) 60 mg PO DAILY [facility] Last Admin: 11/12/16 09:58 Dose: 60 mg Glimepiride (Amaryl -) 2 mg PO DAILY@0700 [facility] Last Admin: 11/12/16 06:40 Dose: 2 mg Meclizine HCl (Antivert -) 25 mg PO TID PRN PRN Reason: VERTIGO Ranitidine HCl (Zantac -) 150 mg PO BID [facility] Last Admin: 11/12/16 21:21 Dose: 150 mg Tamsulosin HCl (Flomax -) 0.4 mg PO DAILY@0830 [facility] Last Admin: 11/12/16 08:58 Dose: 0.4 mg - Objective Vital Signs: Vital Signs Temperature 97.4 F L 11/12/16 17:58 Pulse Rate 67 11/12/16 17:58 Respiratory Rate 18 11/12/16 17:58 Blood Pressure 142/66 11/12/16 17:58 O2 Sat by Pulse Oximetry (%) 100 11/12/16 09:00 Neck: Yes: Supple Cardiovascular: Yes: WNL, Regular Rate and Rhythm Respiratory: Yes: WNL, Regular, CTA Bilaterally Gastrointestinal: Yes: WNL, Normal Bowel Sounds, Soft Labs: CBC, BMP 11/12/16 06:00 11/12/16 06:00 INR, PTT INR 1.62 (0.82-1.09) H 11/07/16 05:35 Problem List - Problems (1) Dyspnea Assessment/Plan: DC ploanning for am Acute bronchitis Pt is off antibxs Cont duoneb Cultures have remained negative Code(s): R06.00 - DYSPNEA, UNSPECIFIED (2) Acute on chronic diastolic (congestive) heart failure Assessment/Plan: Cont lasix Pt is on diovan Code(s): I50.33 - ACUTE ON CHRONIC DIASTOLIC (CONGESTIVE) HEART FAILURE (3) Anemia Assessment/Plan: FE def anemia Cont Feso4 S/P transfusion PRBC's Further w/u including EGD/colonscopy as outpt once resp infection resolved Code(s): D64.9 - ANEMIA, UNSPECIFIED (4) Acute on chronic renal failure Code(s): N17.9 - ACUTE KIDNEY FAILURE, UNSPECIFIED N18.9 - CHRONIC KIDNEY DISEASE, UNSPECIFIED (5) Hypertension Assessment/Plan: BP stable Cont norvasc/asa/diovan Code(s): I10 - ESSENTIAL (PRIMARY) HYPERTENSION (6) DM (diabetes mellitus), type 2 with renal complications Code(s): E11.29 - TYPE 2 DIABETES MELLITUS W OTH DIABETIC KIDNEY COMPLICATION (7) HLD (hyperlipidemia) Code(s): E78.5 - HYPERLIPIDEMIA, UNSPECIFIED (8) Osteoarthritis Code(s): M19.90 - UNSPECIFIED OSTEOARTHRITIS, UNSPECIFIED SITE (9) CAD (coronary artery disease) Code(s): I25.10 - ATHSCL HEART DISEASE OF [place] CORONARY ARTERY W/O ANG PCTRS (10) Gout attack Code(s): M10.9 - GOUT, UNSPECIFIED Qualifiers: Gout site: foot Gout etiology: idiopathic (11) BPH (benign prostatic hyperplasia) Code(s): N40.0 - BENIGN PROSTATIC HYPERPLASIA WITHOUT LOWER URINRY TRACT SYMP
[2016-11-13] MEDS: GLIMEPIRIDE 2 MG TABLET (FP) PO SCH (06:30)
[2016-11-13] MEDS: FUROSEMIDE 40 MG TABLET (FP) PO SCH (09:13)
[2016-11-13] MEDS: ASPIRIN COATED 81 MG TABLET.EC PO SCH (09:13)
[2016-11-13] MEDS: FERROUS SO4 325 MG TABLET (FP) PO SCH ×2 (09:13→12:57)
[2016-11-13] MEDS: RANITIDINE HCL 150 MG TABLET (FP) PO SCH (09:13)
[2016-11-13] MEDS: amLODIPine BESYLATE 2.5 MG TABLET (FP) PO SCH (09:13)
--- NOTE | 2016-11-13 10:57 | PN ---
Progress Note (short form) - Note Progress Note: Resting in NAD on RA. Overall feels better. Some minimal dry cough. Intake & Output 11/10/16 11/11/16 11/12/16 11/13/16 23:59 23:59 23:59 23:59 Intake Total 970 500 500 Balance 970 500 500 Weight 211 lb 3 oz 214 lb 9 oz 215 lb 1 oz 214 lb 3 oz Last Vital Signs Temp Pulse Resp BP Pulse Ox 97.9 F 68 18 123/63 98 11/13/16 06:00 11/13/16 06:00 11/13/16 09:00 11/13/16 06:00 11/13/16 09:00 Active Medications Albuterol/Ipratropium (Duoneb -) 1 amp NEB Q6H PRN PRN Reason: SHORTNESS OF BREATH Amlodipine Besylate (Norvasc -) 2.5 mg PO DAILY [facility] Last Admin: 11/13/16 09:13 Dose: 2.5 mg Aspirin (Ecotrin -) 81 mg PO DAILY [facility] Last Admin: 11/13/16 09:13 Dose: 81 mg Atorvastatin Calcium (Lipitor -) 20 mg PO HS [facility] Last Admin: 11/12/16 21:21 Dose: 20 mg Colchicine (Colcrys -) 0.6 mg PO Q3D@1000 [facility] Last Admin: 11/11/16 10:00 Dose: 0.6 mg Cyanocobalamin (Vitamin B12 Injection -) 1,000 mcg IM Q7D@1000 [facility] Ferrous Sulfate (Feosol -) 325 mg PO TIDCM [facility] Last Admin: 11/13/16 09:13 Dose: 325 mg Furosemide (Lasix -) 60 mg PO DAILY [facility] Last Admin: 11/13/16 09:13 Dose: 60 mg Glimepiride (Amaryl -) 2 mg PO DAILY@0700 [facility] Last Admin: 11/13/16 06:30 Dose: 2 mg Meclizine HCl (Antivert -) 25 mg PO TID PRN PRN Reason: VERTIGO Ranitidine HCl (Zantac -) 150 mg PO BID [facility] Last Admin: 11/13/16 09:13 Dose: 150 mg Tamsulosin HCl (Flomax -) 0.4 mg PO DAILY@0830 [facility] Last Admin: 11/12/16 08:58 Dose: 0.4 mg Neck: Yes: Supple Cardiovascular: Yes: WNL, Regular Rate and Rhythm Respiratory: Yes: Clear Gastrointestinal: Yes: WNL, Normal Bowel Sounds, Soft Labs: Laboratory Results - last 24 hr 11/13/16 06:28 POC Glucometer 128 Problem List - Problems (1) Dyspnea Code(s): R06.00 - DYSPNEA, UNSPECIFIED (2) Acute on chronic diastolic (congestive) heart failure Code(s): I50.33 - ACUTE ON CHRONIC DIASTOLIC (CONGESTIVE) HEART FAILURE (3) Anemia Code(s): D64.9 - ANEMIA, UNSPECIFIED (4) Acute on chronic renal failure Code(s): N17.9 - ACUTE KIDNEY FAILURE, UNSPECIFIED N18.9 - CHRONIC KIDNEY DISEASE, UNSPECIFIED (5) Hypertension Code(s): I10 - ESSENTIAL (PRIMARY) HYPERTENSION (6) DM (diabetes mellitus), type 2 with renal complications Code(s): E11.29 - TYPE 2 DIABETES MELLITUS W OTH DIABETIC KIDNEY COMPLICATION (7) HLD (hyperlipidemia) Code(s): E78.5 - HYPERLIPIDEMIA, UNSPECIFIED (8) Osteoarthritis Code(s): M19.90 - UNSPECIFIED OSTEOARTHRITIS, UNSPECIFIED SITE (9) CAD (coronary artery disease) Code(s): I25.10 - ATHSCL HEART DISEASE OF [place] CORONARY ARTERY W/O ANG PCTRS (10) Gout attack Code(s): M10.9 - GOUT, UNSPECIFIED Qualifiers: Gout site: foot Gout etiology: idiopathic (11) BPH (benign prostatic hyperplasia) Code(s): N40.0 - BENIGN PROSTATIC HYPERPLASIA WITHOUT LOWER URINRY TRACT SYMP PLAN: Monitor off ABX BD TX PRN Lasix No Pulmonary contraindication for D/C home Dr Jeffers
--- NOTE | 2016-11-13 11:10 | PN ---
Progress Note, Physician History of Present Illness: seen and examined today in nad. no overnight events. no new complaints. - Current Medication List Current Medications: Active Medications Albuterol/Ipratropium (Duoneb -) 1 amp NEB Q6H PRN PRN Reason: SHORTNESS OF BREATH Amlodipine Besylate (Norvasc -) 2.5 mg PO DAILY [facility] Last Admin: 11/13/16 09:13 Dose: 2.5 mg Aspirin (Ecotrin -) 81 mg PO DAILY [facility] Last Admin: 11/13/16 09:13 Dose: 81 mg Atorvastatin Calcium (Lipitor -) 20 mg PO HS [facility] Last Admin: 11/12/16 21:21 Dose: 20 mg Colchicine (Colcrys -) 0.6 mg PO Q3D@1000 [facility] Last Admin: 11/11/16 10:00 Dose: 0.6 mg Cyanocobalamin (Vitamin B12 Injection -) 1,000 mcg IM Q7D@1000 [facility] Ferrous Sulfate (Feosol -) 325 mg PO TIDCM [facility] Last Admin: 11/13/16 09:13 Dose: 325 mg Furosemide (Lasix -) 60 mg PO DAILY [facility] Last Admin: 11/13/16 09:13 Dose: 60 mg Glimepiride (Amaryl -) 2 mg PO DAILY@0700 [facility] Last Admin: 11/13/16 06:30 Dose: 2 mg Meclizine HCl (Antivert -) 25 mg PO TID PRN PRN Reason: VERTIGO Ranitidine HCl (Zantac -) 150 mg PO BID [facility] Last Admin: 11/13/16 09:13 Dose: 150 mg Tamsulosin HCl (Flomax -) 0.4 mg PO DAILY@0830 [facility] Last Admin: 11/12/16 08:58 Dose: 0.4 mg - Objective Vital Signs: Vital Signs Temperature 97.9 F 11/13/16 06:00 Pulse Rate 68 11/13/16 06:00 Respiratory Rate 18 11/13/16 09:00 Blood Pressure 123/63 11/13/16 06:00 O2 Sat by Pulse Oximetry (%) 98 11/13/16 09:00 Constitutional: Yes: No Distress, Calm, Obese Eyes: Yes: WNL, Conjunctiva Clear, EOM Intact, PERRL HENT: Yes: WNL, Atraumatic, Normocephalic Neck: Yes: WNL, Supple, Trachea Midline Cardiovascular: Yes: Pulse Irregular, S1, S2. No: WNL, Regular Rate and Rhythm , Bradycardia, Tachycardia, Bruit, JVD, Gallop, Murmur, Rub, S3, S4, Varicosities Respiratory: Yes: WNL, Regular, CTA Bilaterally. No: Rales, Rhonchi, Wheezes Gastrointestinal: Yes: WNL, Normal Bowel Sounds, Soft. No: Distention, Tenderness Musculoskeletal: Yes: WNL Extremities: Yes: WNL Edema: Yes Edema: LLE: Trace, RLE: Trace Peripheral Pulses WNL: Yes Peripheral Pulses: Left Doralis Pedis: 2+, Right Dorsalis Pedis: 2+ Integumentary: Yes: WNL Neurological: Yes: WNL, Alert, Oriented, Cran Nerves II-XII Intact ...Motor Strength: WNL Psychiatric: Yes: WNL, Alert, Oriented Labs: CBC, BMP 11/12/16 06:00 11/12/16 06:00 INR, PTT INR 1.62 (0.82-1.09) H 11/07/16 05:35 - ....Imaging Chest X-ray: Report Reviewed, Image Reviewed EKG: Report Reviewed, Image Reviewed Other: Report Reviewed, Image Reviewed Problem List - Problems (1) Acute on chronic diastolic (congestive) heart failure Code(s): I50.33 - ACUTE ON CHRONIC DIASTOLIC (CONGESTIVE) HEART FAILURE (2) CAD (coronary artery disease) Code(s): I25.10 - ATHSCL HEART DISEASE OF [place] CORONARY ARTERY W/O ANG PCTRS (3) Chest pain Code(s): R07.9 - CHEST PAIN, UNSPECIFIED (4) Chronic kidney disease Code(s): N18.9 - CHRONIC KIDNEY DISEASE, UNSPECIFIED (5) DM (diabetes mellitus), type 2 with renal complications Code(s): E11.29 - TYPE 2 DIABETES MELLITUS W OTH DIABETIC KIDNEY COMPLICATION (6) HLD (hyperlipidemia) Code(s): E78.5 - HYPERLIPIDEMIA, UNSPECIFIED (7) Hypertension Code(s): I10 - ESSENTIAL (PRIMARY) HYPERTENSION (8) SOB (shortness of breath) Code(s): R06.02 - SHORTNESS OF BREATH (9) Stented coronary artery Code(s): Z95.5 - PRESENCE OF CORONARY ANGIOPLASTY IMPLANT AND GRAFT Assessment/Plan Acute gout flair 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 -Risks of full AC at this time seem to outweigh potential benefits. -Plan for completion of outpatient GI work soon after discharge to allow for re- introduction of AC when safe to do so. -currently euvolemic, cont current Lasix dose -no additional planned inpatient cardiac work up at this point, plan for close outpatient follow up on discharge
[2016-11-13] MEDS: SACUBITRIL/VALSARTAN 24 MG-26 MG TABLET PO SCH ×2 (12:57)
[2016-11-13] MEDS ORDERED: PT OWN MED DRAWER 7, Y5N ONE (12:57)
[2016-11-13 13:01] VITALS: BP 150/66; PULSE 73; TEMP 97.8
[2016-11-13] MEDS: TAMSULOSIN HCL 0.4 MG CAP.ER.24H (FP) PO SCH (13:01)
[2016-11-14 00:07] LABS: A/G RATIO 0.8 (0.7-1.7); ALBUMIN 2.8 g/dL (2.9-4.4); ALPHA-1-GLOBULIN 0.3 g/dL (0.0-0.4); BETA GLOBULIN 1.2 g/dL (0.7-1.3); GAMMA GLOBULIN 1.5 g/dL (0.4-1.8); GLOBULIN, TOTAL 3.7 g/dL (2.2-3.9); M-SPIKE Not Observed g/dL (Not Observed); TOTAL PROTEIN 6.5 g/dL (6.0-8.5)
[2016-11-17] MEDS ORDERED: CYANOCOBALAMIN (VITAMIN B-12) 1000 MCG/1 ML VIAL IM SCH (10:00)
== END 2016-11-13 13:46 | disposition home or self-care (01) | DRG 291 ==
LOC: JER 07:17 → JERBED 11:23 → J4W 18:10 → J7W 11-07 16:27
PROVIDERS: ADMIT Internal Medicine; ATTEND Internal Medicine
PROC: 30233N1 Transfusion of Nonautologous Red Blood Cells into Peripheral Vein, Percutaneous Approach (ICD-10-PCS; principal; 2016-11-05)
DX: I13.0 Hypertensive heart and chronic kidney disease with heart failure and stage 1 through stage 4 chronic kidney disease, or unspecified chronic kidney disease (principal); I50.43 Acute on chronic combined systolic (congestive) and diastolic (congestive) heart failure; N17.9 Acute kidney failure, unspecified; M10.9 Gout, unspecified; E78.00 Pure hypercholesterolemia, unspecified; I25.10 Atherosclerotic heart disease of native coronary artery without angina pectoris; K59.09 Other constipation; J40 Bronchitis, not specified as acute or chronic; E11.22 Type 2 diabetes mellitus with diabetic chronic kidney disease; N18.9 Chronic kidney disease, unspecified; D50.9 Iron deficiency anemia, unspecified; M19.90 Unspecified osteoarthritis, unspecified site; Z95.0 Presence of cardiac pacemaker; Z95.5 Presence of coronary angioplasty implant and graft; I25.5 Ischemic cardiomyopathy; N40.0 Benign prostatic hyperplasia without lower urinary tract symptoms
CPT/HCPCS: 36415; 36430; 71010-TC; 80048; 80053; 81003; 81015; 82136; 82272; 82550; 82607; 82728; 82747; 82784; 83540; 83550; 83615; 83880; 83883; 83918; 84155; 84165; 84439; 84443; 84484; 84550; 85014; 85025; 85027; 85610; 85730; 86334; 86340; 86850; 86900; 86901; 86922; 87040; 87086; 87804; 93005; 93010; 93306-TC; 99284-25; J1756; P9058

== ENCOUNTER 2017-02-18 08:23 | Inpatient (IN) | payer MEDICARE, OTHER ==
[2017-02-18 08:29] VITALS: BMI 34.4
--- NOTE | 2017-02-18 08:35 | PDOC ---
History of Present Illness <KeDennis serrano - Last Filed: 02/18/17 11:46> - General History Source: Patient Exam Limitations: No Limitations - History of Present Illness Initial Comments: 02/18/17 08:37 The patient is an 81-year-old man with a significant past medical history of hypertension, hypercholesterolemia, coronary artery disease status post permanent pacemaker and stents, chronic presumed congestive heart failure, moderate to severe tricuspid regurgitation (seen on echocardiogram performed on 11/06/2016), chronic kidney disease and diabetes mellitus who presents to the emergency department for further evaluation of progressively worsening shortness of breath. On ED arrival patient was noted to be 98% on room air and mildly tachypneic with a respiratory rate of 26. Patient was placed on NC (2 liters). He states that he has been experiencing shortness of breath for the past 2 days. While waling to his sons house, (less than 1 block away from his home), he had 7 stops, as he was unable to catch his breath while walking. He admits ignoring his symptoms at first, but presents today to the ED, as he developed mid-sternal pleuritic chest pain with associated mid back pain this morning. He denies any changes in diet and he reports compliance with all of his medications. He also reports urinary frequency, but attributes it to his Lasix. No fever, chills, generalized weakness. No lightheadedness, dizziness, palpitations, syncope, headaches, leg pain/ swelling, neck pain, neck stiffiess. No abdominal pain, nausea, vomiting. No dysuria, foul smelling urine, testicular pain, penile discharge Allergies: No Known Drug Allergies Past Surgical History: Pacemaker. Stents. Cholecystectomy Social History: Former smoker. Occasional ETOH use. No recreational drug use. Primary Care Physician: Dr. Don Patterson [employer]: Dr. Jose Brunner <Charlotte Lantigua - Last Filed: 02/18/17 15:22> - General Chief Complaint: Shortness of Breath Stated Complaint: SOB, CHEST PAIN Time Seen by Provider: 02/18/17 08:34 Past History - Past Medical History Anemia: No Asthma: No Cancer: No Cardiac Disorders: Yes CVA: No COPD: No CHF: No Dementia: No Diabetes: Yes GI Disorders: No Disorders: Yes (?) HTN: Yes Hypercholesterolemia: Yes Liver Disease: No Seizures: No Thyroid Disease: No - Surgical History Cardiac Surgery: Yes (pacemaker, STENTS) Cholecystectomy: Yes Orthopedic Surgery: Yes - Psycho/Social/Smoking Cessation Hx Anxiety: No Suicidal Ideation: No Smoking Status: No Smoking History: Former smoker Have you smoked in the past 12 months: No Number of Cigarettes Smoked Daily: 0 If you are a former smoker, when did you quit?: "long time ago" Information on smoking cessation initiated: No Hx Alcohol Use: No Drug/Substance Use Hx: No Substance Use Type: None Hx Substance Use Treatment: No <Dennis Rose - Last Filed: 02/18/17 11:46> <Charlotte Lantigua - Last Filed: 02/18/17 15:22> - Past Medical History Allergies/Adverse Reactions: Allergies Allergy/AdvReac Type Severity Reaction Status Date / Time No Known Drug Allergies Allergy Verified 02/18/17 08:29 Home Medications: Ambulatory Orders Aspirin [Aspirin EC] 81 mg PO DAILY 12/01/15 Atorvastatin Ca [Lipitor] 20 mg PO HS 12/01/15 Glimepiride 4 mg PO DAILY 12/01/15 Ranitidine [Zantac -] 150 mg PO BID 12/01/15 Ranolazine [Ranexa] 500 mg PO BID 12/01/15 Sacubitril/Valsartan [Entresto 24 mg-26 mg Tablet] 1 each PO BID 12/01/15 Tamsulosin HCl 0.4 mg PO DAILY 12/01/15 Furosemide [Lasix -] 40 mg PO DAILY #30 tablet 12/07/15 Amlodipine Besylate 2.5 mg PO DAILY 11/04/16 Apixaban [Eliquis] 2.5 mg PO BID 11/04/16 Linaclotide [Linzess] 145 mcg PO DAILY 11/04/16 Linagliptin [Tradjenta] 5 mg PO DAILY 11/04/16 Meclizine HCl [Antivert -] 25 mg PO TID PRN 11/04/16 Febuxostat [Uloric -] 40 mg PO DAILY 02/18/17 Metoprolol Succinate [Toprol Xl] 12.5 mg PO DAILY 02/18/17 Review of Systems - Review of Systems Able to Perform ROS?: Yes Comments:: 02/18/17 08:37 GENERAL/CONSTITUTIONAL: No fever or chills. No weakness. HEAD, EYES, EARS, NOSE AND THROAT: No change in vision. No ear pain or discharge. No sore throat. CARDIOVASCULAR: Yes: Shortness of breath. Chest pain. RESPIRATORY: No cough, wheezing, or hemoptysis. GASTROINTESTINAL: No nausea, vomiting, diarrhea or constipation. GENITOURINARY: Yes: Urinary frequency (attributes it to Lasix). No dysuria or change in urination. MUSCULOSKELETAL: Yes: Back Pain. No joint or muscle swelling or pain. No neck pain. SKIN: No rash NEUROLOGIC: No headache, vertigo, loss of consciousness, or change in strength/ sensation. ENDOCRINE: No increased thirst. No abnormal weight change. HEMATOLOGIC/LYMPHATIC: No anemia, easy bleeding, or history of blood clots. ALLERGIC/IMMUNOLOGIC: No hives or skin allergy. <Charlotte Lantigua - Last Filed: 02/18/17 15:22> *Physical Exam - Vital Signs Last Vital Signs Temp Pulse Resp BP Pulse Ox 98.4 F 82 26 H 130/63 98 02/18/17 08:26 02/18/17 08:26 02/18/17 08:26 02/18/17 08:26 02/18/17 08:26 <Dennis Rose - Last Filed: 02/18/17 11:46> - Vital Signs Last Vital Signs Temp Pulse Resp BP Pulse Ox 98.4 F 82 26 H 130/63 98 02/18/17 08:26 02/18/17 08:26 02/18/17 08:26 02/18/17 08:26 02/18/17 08:26 - Physical Exam Comments: 02/18/17 08:37 GENERAL: Awake, alert, and fully oriented, in no acute distress HEAD: No signs of trauma EYES: PERRLA, EOMI, sclera anicteric, conjunctiva clear ENT: Auricles normal inspection, hearing grossly normal, nares patent, oropharynx clear without exudates. Moist mucosa NECK: +Mild JVD, bilaterally. Normal ROM, supple, no lymphadenopathy, masses LUNGS: Breath sounds equal, clear to auscultation bilaterally. No wheezes, and no crackles HEART: +Systolic murmur heard best at the 4th intercoastal space, just lateral to the sternum. ABDOMEN: Soft, nontender, normoactive bowel sounds. No guarding, no rebound. No masses EXTREMITIES: Normal range of motion, no edema. No clubbing or cyanosis. No cords, erythema, or tenderness NEUROLOGICAL: Cranial nerves II through XII grossly intact. Normal speech. <LantiguaCharlotte holguin - Last Filed: 02/18/17 15:22> Heart Score/ECG Review #1 02/18/17 08:37 Reviewed and interpreted by Dr. Dennis Rose IMPRESSION: Atrial sensed ventricular paced rhythm at 85 bpm. No STEMI. No change since November 04 2016. <GrzegorzCharlotte - Last Filed: 02/18/17 15:22> ED Treatment Course - LABORATORY CBC & Chemistry Diagram: 02/18/17 09:03 02/18/17 09:03 <Dennis Rose - Last Filed: 02/18/17 11:46> - LABORATORY CBC & Chemistry Diagram: 02/18/17 09:03 02/18/17 09:03 - RADIOLOGY Radiograph Interpretation: 02/18/17 09:39 EXAM: RAD/CHEST X-RAY PORTABLE IMPRESSION: Since 11/06/2016 there are new bilateral congestive changes with questionable early right base infiltrate. There is a prominent heart, degenerative changes and double lead pacemaker. Follow-up recommended. <GrzegorzCharlotte - Last Filed: 02/18/17 15:22> Medical Decision Making - Medical Decision Making 02/18/17 08:37 The patient is an 81-year-old man with a significant past medical history of hypertension, hypercholesterolemia, coronary artery disease status post permanent pacemaker and stents, chronic presumed congestive heart failure, moderate to severe tricuspid regurgitation (seen on echocardiogram performed on 11/06/2016), chronic kidney disease and diabetes mellitus who presents to the emergency department for further evaluation of progressively worsening shortness of breath. On ED arrival patient was noted to be 98% on room air and mildly tachypneic with a respiratory rate of 26. Patient was placed on NC (2 liters). He states that he has been experiencing shortness of breath for the past 2 days, particularly when walking. He also rpeorts associated symptoms of chest and back pain. Will obtain labs, Chest X-Ray, EKG. Will reassess. 02/18/17 09:48 Chest X-Ray shows pneumonia. Will obtain blood cultures and admit the patient. 02/18/17 10:[address] Mecca Rick. 02/18/17 11:[address] Mecca Rick. 02/18/17 11:[address] Mecca Rick to her mobile phone. 02/18/17 11:[address] Mecca Rick. Case was discussed. Case accepted. <Charlotte Lantigua - Last Filed: 02/18/17 15:22> *DC/Admit/Observation/Transfer - Discharge Dispostion Admit: Yes - Attestations Physician Attestion: 02/18/17 08:35 I, Dr. Dennis Rose, attest that this document has been prepared under my direction and personally reviewed by me in its entirety. I further attest, that it accurately reflects all work, treatment, procedures and medical decision -making performed by me. <Dennis Rose - Last Filed: 02/18/17 11:46> - Attestations Scribe Attestion: 02/18/17 08:37 Documentation prepared by Charlotte Lantigua, acting as medical equipment repair technician for Dennis Rose DO. <Charlotte Lantigua - Last Filed: 02/18/17 15:22> Diagnosis at time of Disposition: Stented coronary artery, Acute on chronic diastolic (congestive) heart failure CAD (coronary artery disease) Qualifiers: Coronary Disease-Associated Artery/Lesion type: unspecified vessel or lesion type [place] vs. transplanted heart: unspecified whether [place] or transplanted heart Associated angina: without angina Qualified Code(s): I25.10 - Atherosclerotic heart disease of [place] coronary artery without angina pectoris HLD (hyperlipidemia) Qualifiers: Hyperlipidemia type: mixed hyperlipidemia Qualified Code(s): E78.2 - Mixed hyperlipidemia Chronic kidney disease Qualifiers: Chronic kidney disease stage: unspecified stage Qualified Code(s): N18.9 - Chronic kidney disease, unspecified DM (diabetes mellitus), type 2 with renal complications Qualifiers: Diabetes mellitus complication detail: with chronic kidney disease Diabetes mellitus residential insulin use: with residential use Chronic kidney disease stage : unspecified stage Qualified Code(s): E11.22 - Type 2 diabetes mellitus with diabetic chronic kidney disease Pneumonia Qualifiers: Pneumonia type: due to unspecified organism Laterality: right Lung location: lower lobe of lung Qualified Code(s): J18.1 - Lobar pneumonia, unspecified organism Hypertension Qualifiers: Hypertension type: essential hypertension Qualified Code(s): I10 - Essential ( primary) hypertension - Discharge Dispostion Condition at time of disposition: Improved
[2017-02-18] MEDS ORDERED: NITROGLYCERIN 2% OINTMENT - 1GM PACKET TD ONE ×2 (08:55→09:08)
[2017-02-18] MEDS ORDERED: ALBUTEROL SO4 2.5/IPRATROPIUM 0.5 INH SOL 3 ML VIAL.NEB. NEB ONE ×2 (08:55→09:09)
[2017-02-18] MEDS ORDERED: FUROSEMIDE 40 MG/4 ML INJECTABLE VIAL IVPUSH ONE (08:55)
[2017-02-18] MEDS ORDERED: FUROSEMIDE 40 MG/4 ML INJECTABLE VIAL ONE (09:09)
[2017-02-18 09:22] LABS: BASOPHIL 0.4 % (0-2.0); EOSINOPHIL 1.6 % (0-4.5); MCH 27.4 pg (25.7-33.7); MCHC 31.3 g/dl (32.0-35.9); MEAN CELL VOLUME 87.5 fl (80-96); MEAN PLT VOLUME 7.9 fl (7.5-11.1); NEUTROPHILS 67.8 % (42.8-82.8); PLATELET COUNT 220 K/MM3 (134-434); RDW 17.8 % (11.9-15.9); WHITE BLOOD COUNT 10.4 K/mm3 (4.0-10.0)
[2017-02-18 09:40] LABS: INR 1.86 (0.82-1.09); PROTHROMBIN TIME (PATIENT) 20.7 SEC (9.98-11.88)
[2017-02-18] MEDS ORDERED: LEVOFLOXACIN 750 MG IVPB 150 ML IVPB ONE ×2 (09:52→10:12)
[2017-02-18 09:55] LABS: BILIRUBIN,TOTAL 0.3 mg/dL (0.2-1.0); CALCIUM 8.1 mg/dL (8.5-10.1); COCKROFT - GAULT 32.1; CREATININE 2.5 mg/dL (0.7-1.3); TOT PROT 7.1 g/dl (6.4-8.2)
[2017-02-18 09:58] LABS: TROPONIN I 0.06 ng/ml (0.00-0.05)
[2017-02-18 15:46] LABS: TROPONIN I 0.06 ng/ml (0.00-0.05)
[2017-02-19] MEDS ORDERED: MECLIZINE HCL 25 MG TABLET (FP) PO PRN (02:25)
[2017-02-19] MEDS: ASPIRIN COATED 81 MG TABLET.EC PO SCH ×2 (03:15→10:39)
[2017-02-19] MEDS: GLIMEPIRIDE 4 MG TABLET (FP) PO SCH (06:44)
[2017-02-19 08:14] LABS: BASOPHIL 0.4 % (0-2.0); EOSINOPHIL 1.4 % (0-4.5); MCH 26.9 pg (25.7-33.7); MCHC 31.1 g/dl (32.0-35.9); MEAN CELL VOLUME 86.5 fl (80-96); MEAN PLT VOLUME 7.8 fl (7.5-11.1); NEUTROPHILS 61.4 % (42.8-82.8); PLATELET COUNT 239 K/MM3 (134-434); RDW 17.5 % (11.9-15.9); WHITE BLOOD COUNT 11.8 K/mm3 (4.0-10.0)
[2017-02-19 08:36] LABS: ALBUMIN 3.1 g/dl (3.4-5.0); CALCIUM 8.5 mg/dL (8.5-10.1)
[2017-02-19 08:43] LABS: BILIRUBIN,TOTAL 0.4 mg/dL (0.2-1.0); COCKROFT - GAULT 32.1; CREATININE 2.5 mg/dL (0.7-1.3); TOT PROT 7.1 g/dl (6.4-8.2); TROPONIN I 0.06 ng/ml (0.00-0.05)
[2017-02-19] MEDS ORDERED: PT OWN MED DRAWER 7, Y5N ONE (09:27)
[2017-02-19] MEDS: TAMSULOSIN HCL 0.4 MG CAP.ER.24H (FP) PO SCH (09:49)
[2017-02-19] MEDS: RANITIDINE HCL 150 MG TABLET (FP) PO SCH ×2 (09:50→22:39)
[2017-02-19] MEDS: RANOLAZINE E.R. 500 MG TABLET (FP) PO SCH ×2 (09:50→22:39)
[2017-02-19] MEDS: METOPROLOL SUCCINATE 25 MG TAB.SR.24H (FP) PO SCH (09:50)
[2017-02-19] MEDS: amLODIPine BESYLATE 2.5 MG TABLET (FP) PO SCH (09:51)
[2017-02-19] MEDS: LEVOFLOXACIN 250 MG IVPB 50 ML IVPB SCH (09:51)
[2017-02-19] MEDS: FEBUXOSTAT 40 MG TAB PO SCH (09:51)
[2017-02-19] MEDS: SACUBITRIL/VALSARTAN 24 MG-26 MG TABLET PO SCH ×2 (09:52→22:00)
[2017-02-19] MEDS ORDERED: PATIENT'S OWN MEDICATION (NON-FORMULARY) (Linaclotide [Linzess] 145 MCG) PO SCH (10:00)
[2017-02-19] MEDS ORDERED: PATIENT'S OWN MEDICATION (NON-FORMULARY) (Linagliptin [Tradjenta] 5 MG) PO SCH (10:00)
[2017-02-19] MEDS ORDERED: APIXABAN 2.5 MG TABLET PO SCH (10:00)
--- NOTE | 2017-02-19 11:10 | EKG ---
Test Reason : Blood Pressure : / mmHG Vent. Rate : 085 BPM Atrial Rate : 085 BPM P-R Int : 114 ms QRS Dur : 158 ms QT Int : 416 ms P-R-T Axes : 058 -59 108 degrees QTc Int : 495 ms Atrial-sensed ventricular-paced rhythm ABNORMAL ECG WHEN COMPARED WITH ECG OF 04-NOV-2016 08:40, PREMATURE VENTRICULAR COMPLEXES ARE NO LONGER PRESENT VENT. RATE HAS INCREASED BY 3 BPM Confirmed by ANISHA REYES MD ([id number]) on 02/19/2017 11:10:09 AM Referred By: Confirmed By:ANISHA REYES MD
--- NOTE | 2017-02-19 11:15 | CON.CARD ---
Consult Consult Specialty:: Cardiology Referred by:: ER Reason for Consultation:: SOB - History of Present Illness Chief Complaint: SOB History of Present Illness: 80 year old man with a history of CAD with prior PCI, h/o ischemic cardiomyopathy but normal LV function on most recent evaluations, Pafib, CHB s/ p PPM, HTN, DMII, HLD, CKD, NSVT, chronic anemia and GI bleed requiring transfusion on prior admissions, admitted with sob and mild chest discomfort. Pt. seen and examined today in nad. states he is feeling better. denies any chest pain. states his sob has improved. denies any bleeding. of note he was put back on eliquis as outpatient but plan was to stop it if any further bleeding or anemia. - History Source History Provided By: Patient, Medical Record Limitations to Obtaining History: Language Barrier - Past Medical History Cardio/Vascular: Yes: AFIB, CAD, CHF, HTN, Other (CHB s/p PPM) Gastrointestinal: Yes: Constipation Renal/: Yes: Renal Inusuff Musculoskeletal: Yes: Osteoarthritis, Other (Gout Uric acid 10) Endocrine: Yes: Diabetes Mellitus - Past Surgical History Past Surgical History: Yes: Cholecystectomy, Permanent Pacemaker - Alcohol/Substance Use Hx Alcohol Use: No - Smoking History Smoking history: Former smoker Have you smoked in the past 12 months: No Aproximately how many cigarettes per day: 0 If you are a former smoker, when did you quit?: "long time ago" - Social History ADL: Independent History of Recent Travel: No Home Medications - Allergies Allergies/Adverse Reactions: Allergies Allergy/AdvReac Type Severity Reaction Status Date / Time No Known Drug Allergies Allergy Verified 02/18/17 08:29 - Home Medications Home Medications: Ambulatory Orders Aspirin [Aspirin EC] 81 mg PO DAILY 12/01/15 Atorvastatin Ca [Lipitor] 20 mg PO HS 12/01/15 Glimepiride 4 mg PO DAILY 12/01/15 Ranitidine [Zantac -] 150 mg PO BID 12/01/15 Ranolazine [Ranexa] 500 mg PO BID 12/01/15 Sacubitril/Valsartan [Entresto 24 mg-26 mg Tablet] 1 each PO BID 12/01/15 Tamsulosin HCl 0.4 mg PO DAILY 12/01/15 Furosemide [Lasix -] 40 mg PO DAILY #30 tablet 12/07/15 Amlodipine Besylate 2.5 mg PO DAILY 11/04/16 Apixaban [Eliquis] 2.5 mg PO BID 11/04/16 Linaclotide [Linzess] 145 mcg PO DAILY 11/04/16 Linagliptin [Tradjenta] 5 mg PO DAILY 11/04/16 Meclizine HCl [Antivert -] 25 mg PO TID PRN 11/04/16 Febuxostat [Uloric -] 40 mg PO DAILY 02/18/17 Metoprolol Succinate [Toprol Xl] 12.5 mg PO DAILY 02/18/17 Family Disease History - Family Disease History Family History: Denies Review of Systems - Review of Systems Constitutional: denies: No Symptoms, Chills, Diaphoresis, Fever, Lethargy, Loss of Appetite, Malaise, Night Sweats, Unintentional Wgt. Loss, Weakness, Other Eyes: denies: No Symptoms, Blind Spots, Blurred Vision, Double Vision, Eye Pain , Floaters, Photophobia, Recent Change in Vision, Other HENT: denies: No Symptoms, Difficult Swallowing, Ear Discharge, Ear Pain, Epistaxis, Gingival Bleeding, Hearing Loss, Mouth Swelling, Nasal Congestion, Ocular Prosthesis, Throat Pain, Toothache, Ringing in Ears, Other Neck: denies: No Symptoms, Decreased ROM, Lumps, Pain on Movement, Stiffness, Swollen Glands, Tenderness, Other Cardiovascular: reports: Edema, Shortness of Breath. denies: No Symptoms, Chest Pain, Palpitations, Other Respiratory: reports: Exercise Intolerance, SOB, SOB on Exertion. denies: No Symptoms, Cough, Hemoptysis, Orthopnea, PND, Snoring, Wheezing, Other Gastrointestinal: denies: No Symptoms, Abdominal Pain, Bloating, Constipation, Diarrhea, Dysphagia, Indigestion, Melena, Nausea, Rectal Bleeding, Vomiting, Vomiting Blood, Other Genitourinary: denies: No Symptoms, Burning, Discharge, Dysuria, Flank Pain, Frequency, Hematuria, Incontinence, Lesions, Menses, Pain, Testicular Mass, Testicular Pain, Testicular Swelling, Urgency, Vaginal Bleeding, Other Breasts: denies: No Symptoms Reported, See HPI, Breast Implants, Discharge from Nipple, Lumps, Pain, Skin Changes, Other Musculoskeletal: denies: No Symptoms, Back Pain, Crepitus, Decreased ROM, Extremity Pain, Joint Pain, Joint Swelling, Muscle Pain, Muscle Cramps, Muscle Weakness, Other Integumentary: denies: No Symptoms, Blister, Bruising, Change in Color, Eczema, Erythema, Incision, Lesions, Lump, Pallor, Pruritis, Rash, Wound, Other Neurological: denies: No Symptoms, Change in LOC, Change in Speech, Confusion, Dizziness, Headache, Incoordination, Numbness, Parasthesia, Pre-Existing Deficit , Seizure, Syncope, Tremors, Unsteady Gait, Weakness, Other Endocrine: denies: No Symptoms, Excessive Sweating, Flushing, Increased Hunger, Increased Thirst, Intolerance to Cold, Intolerance to Heat, Unexplained Weight Gain, Unexplained Weight Loss, Other Hematology/Lymphatic: denies: No Symptoms, Easily Bruised, Excessive Bleeding, Swollen Glands, Other Psychiatric: denies: No Symptoms, Altered Sleep Pattern, Anxiety, Depression, Hallucinations, Panic, Paranoia, Suicidal, Other - Risk Factors Known Risk Factors: Yes: Diabetes Mellitus, Hypercholesterolemia, Hypertension, Physical Inactivity, Prior IN /Emb Stroke Vital Signs: Vital Signs Temperature 98 F 02/19/17 09:00 Pulse Rate 78 02/19/17 09:00 Respiratory Rate 18 02/19/17 09:00 Blood Pressure 122/58 02/19/17 09:00 O2 Sat by Pulse Oximetry (%) 100 02/19/17 09:00 Constitutional: Yes: No Distress, Calm, Obese Eyes: Yes: Conjunctiva Clear, EOM Intact, PERRL HENT: Yes: WNL, Atraumatic, Normocephalic Neck: Yes: WNL, Supple, Trachea Midline Respiratory: Yes: WNL, Regular, CTA Bilaterally. No: Rales, Rhonchi, Wheezes Gastrointestinal: Yes: WNL, Normal Bowel Sounds, Soft. No: Distention, Tenderness Renal/: Yes: WNL Cardiovascular: Yes: Regular Rate and Rhythm. No: Bradycardia, Tachycardia, Pulse Irregular, Gallop, Rub, Varicosities JVD: No Carotid Bruit: No PMI: Non-Displaced Heart Sounds: Yes: S1, S2. No: Split S2, S3, S4, Clicks, Gallop, Rub, Bruit Murmur: Yes: Systolic Murmur. No: Diastolic Murmur Musculoskeletal: Yes: Muscle Weakness Extremities: Yes: WNL Edema: Yes Edema: LLE: Trace, RLE: Trace Peripheral Pulses WNL: Yes Peripheral Pulses: 2+ Left Doralis Pedis, 2+ Right Dorsalis Pedis Integumentary: Yes: WNL Neurological: Yes: WNL, Alert, Oriented, Cran Nerves II-XII Intact ...Motor Strength: WNL Psychiatric: Yes: WNL, Alert, Oriented - Other Data Labs, Other Data: CBC, BMP 02/19/17 06:18 02/19/17 06:18 INR, PTT INR 1.86 (0.82-1.09) H 02/18/17 09:03 Troponin, BNP 02/18/17 02/19/17 15:07 06:18 Troponin I 0.06 H 0.06 H Troponin, BNP 02/18/17 02/19/17 15:07 06:18 Troponin I 0.06 H 0.06 H ekg-NSR, VPaced 85bpm Echo: Report Reviewed Prior Cardiac Procedures: Cardiac Catheterization, PTCA with Stent Imaging - Results Chest X-ray: Report Reviewed, Image Reviewed EKG: Report Reviewed, Image Reviewed Other: Report Reviewed, Image Reviewed (tele-AV paced, PVCs) Assessment/Plan 80 year old man with a history of CAD with prior PCI, h/o ischemic cardiomyopathy but normal LV function on most recent evaluations, Pafib, CHB s/ p PPM, HTN, DMII, HLD, CKD, NSVT, chronic anemia and GI bleed requiring transfusion on prior admissions, admitted with sob and mild chest discomfort. SOB-acute on chronic diastolic CHF vs PNA vs symptomatic anemia -starte on Abx -resume Lasix can give 40mg IV daily for now -monitor strict I/Os and daily weights -monitor bun/creat electrolytes and replete as needed -consider PRBC transfusion, stop eliquis, consider GI evaluation Afib-paroxysmal, with recurrent anemia, h/o CHB s/p PPM -stop eliquis -cont ASA 81mg daily alone if H/H stable -has been in NSR here -cont Toprol CAD-h/o stents -cont ASA 81mg daily for now -cont toprol, ranexa, lipitor HTN-adequately controlled -cont home anti-HTN regimen
--- NOTE | 2017-02-19 19:20 | CON.GI ---
Consult Consult Specialty:: GI Referred by:: Dr Rick Reason for Consultation:: Anemia - History of Present Illness Chief Complaint: dyspnea and chest pain History of Present Illness: 81 M with h/o CAD/PCI, with prior PCI, ischemic cardiomyopathy PAF, admitted with CP and progressive dyspnea. He was noted to have Hgb 7.2 on admission which is not far from baseline. He denies satya bleeding and states he only has black stools when he eats certain foods. He had been on eliquis prior to admission. INR was 1.8. - History Source History Provided By: Patient, Medical Record Limitations to Obtaining History: No Limitations - Past Medical History Cardio/Vascular: Yes: AFIB, CAD, CHF, HTN, Other (CHB s/p PPM) Gastrointestinal: Yes: Constipation Renal/: Yes: Renal Inusuff Musculoskeletal: Yes: Osteoarthritis, Other (Gout Uric acid 10) Endocrine: Yes: Diabetes Mellitus - Past Surgical History Past Surgical History: Yes: Cholecystectomy, Permanent Pacemaker - Alcohol/Substance Use Hx Alcohol Use: No - Smoking History Smoking history: Former smoker Have you smoked in the past 12 months: No Aproximately how many cigarettes per day: 0 If you are a former smoker, when did you quit?: "long time ago" - Social History ADL: Independent History of Recent Travel: No Home Medications - Allergies Allergies/Adverse Reactions: Allergies Allergy/AdvReac Type Severity Reaction Status Date / Time No Known Drug Allergies Allergy Verified 02/18/17 08:29 - Home Medications Home Medications: Ambulatory Orders Aspirin [Aspirin EC] 81 mg PO DAILY 12/01/15 Atorvastatin Ca [Lipitor] 20 mg PO HS 12/01/15 Glimepiride 4 mg PO DAILY 12/01/15 Ranitidine [Zantac -] 150 mg PO BID 12/01/15 Ranolazine [Ranexa] 500 mg PO BID 12/01/15 Sacubitril/Valsartan [Entresto 24 mg-26 mg Tablet] 1 each PO BID 12/01/15 Tamsulosin HCl 0.4 mg PO DAILY 12/01/15 Furosemide [Lasix -] 40 mg PO DAILY #30 tablet 12/07/15 Amlodipine Besylate 2.5 mg PO DAILY 11/04/16 Apixaban [Eliquis] 2.5 mg PO BID 11/04/16 Linaclotide [Linzess] 145 mcg PO DAILY 11/04/16 Linagliptin [Tradjenta] 5 mg PO DAILY 11/04/16 Meclizine HCl [Antivert -] 25 mg PO TID PRN 11/04/16 Febuxostat [Uloric -] 40 mg PO DAILY 02/18/17 Metoprolol Succinate [Toprol Xl] 12.5 mg PO DAILY 02/18/17 Physical Exam-GI Vital Signs: Vital Signs Temperature 98.1 F 02/19/17 17:00 Pulse Rate 68 02/19/17 17:00 Respiratory Rate 20 02/19/17 17:00 Blood Pressure 126/60 02/19/17 17:00 O2 Sat by Pulse Oximetry (%) 100 02/19/17 09:00 Constitutional: Yes: Well Nourished, Mild Distress, Obese HENT: Yes: Normocephalic Cardiovascular: Yes: Regular Rate and Rhythm Respiratory: Yes: Diminished Gastrointestinal Inspection: Yes: Distention ...Auscultate: Yes: Normoactive Bowel Sounds ...Palpate: Yes: Firm/Rigid. No: Tenderness ...Percussion: Yes: Tympanitic Labs: CBC, BMP 02/19/17 06:18 02/19/17 06:18 INR, PTT INR 1.86 (0.82-1.09) H 02/18/17 09:03 Hepatic Panel Total Bilirubin 0.4 mg/dL (0.2-1.0) D 02/19/17 06:18 AST 15 U/L (15-37) 02/19/17 06:18 ALT 15 U/L (12-78) 02/19/17 06:18 Alkaline Phosphatase 75 U/L (45-117) 02/19/17 06:18 Albumin 3.1 g/dl (3.4-5.0) L 02/19/17 06:18 Imaging - Results Chest X-ray: Report Reviewed (increased congestion, PPM) Assessment/Plan 81 M with above history admitted with SOB and found to have a normocytic anemia. He was noted to have low B12 on a previous admission. He has been transfused in the past. In Oct 2016 he received 1 unit PRBC. Before that, he received 2 units PRBC in 2013. On both of those occasions there was no demonstrable bleeding. On one occasion he was guaiac (+) On this occasion there was no pre- or post admission bleeding. He denies abdominal pain but has significant distention. Impression: Possible occult GI bleeding, likely anemia secondary to CKD. CKD became worse in 2013 and Hgb dropped at ~same time. Recommend: Guaiac stools Check B12 and anti parietal antibody Check TTG U/S abdomen and KUB Transfuse as needed to maintain Hgb 9 Hold eliquis for now GI procedures if deemed necessary
--- NOTE | 2017-02-19 19:36 | HP ---
Admitting History and Physical - Admission Chief Complaint: Dyspnea History of Present Illness: Pt is a 81 y/o male who is a poor historian w/ PMH significant for HTN, HLD, CAD (s/p cardiac stents), CHB s/p pacemaker, diabetes, CKD, gout, OA, GERD, anemia( wc has required blood transfusions in the past) and GI bleed. PT presented to the ER w/ increasing dyspnea for at least the past week although he may have had it alittle longer. P also complained of cough wc is dry nonproductive and pleuritic chest pain. In the ER pt found to have BNP of >4000, normal WBC, Hgb 7.2 and cxr showed b/o congestion and ?early RLL infiltrate. History Source: Patient, Medical Record - Past Medical History Cardiovascular: Yes: AFIB, CAD, CHF, HTN, Other (CHB s/p PPM NSVT) Gastrointestinal: Yes: Constipation, GERD, GI Bleed Renal/: Yes: BPH, Other (CKD) Musculoskeletal: Yes: Osteoarthritis, Other (Gout) Endocrine: Yes: Diabetes Mellitus - Past Surgical History Past Surgical History: Yes: Cholecystectomy, Permanent Pacemaker - Smoking History Smoking history: Former smoker Have you smoked in the past 12 months: No Aproximately how many cigarettes per day: 0 If you are a former smoker, when did you quit?: "long time ago" - Alcohol/Substance Use Hx Alcohol Use: No - Social History ADL: Independent History of Recent Travel: No Home Medications - Allergies Allergies/Adverse Reactions: Allergies Allergy/AdvReac Type Severity Reaction Status Date / Time No Known Drug Allergies Allergy Verified 02/18/17 08:29 - Home Medications Home Medications: Ambulatory Orders Aspirin [Aspirin EC] 81 mg PO DAILY 12/01/15 Atorvastatin Ca [Lipitor] 20 mg PO HS 12/01/15 Glimepiride 4 mg PO DAILY 12/01/15 Ranitidine [Zantac -] 150 mg PO BID 12/01/15 Ranolazine [Ranexa] 500 mg PO BID 12/01/15 Sacubitril/Valsartan [Entresto 24 mg-26 mg Tablet] 1 each PO BID 12/01/15 Tamsulosin HCl 0.4 mg PO DAILY 12/01/15 Furosemide [Lasix -] 40 mg PO DAILY #30 tablet 02/09/16 Amlodipine Besylate 2.5 mg PO DAILY 11/04/16 Apixaban [Eliquis] 2.5 mg PO BID 11/04/16 Linaclotide [Linzess] 145 mcg PO DAILY 11/04/16 Linagliptin [Tradjenta] 5 mg PO DAILY 11/04/16 Meclizine HCl [Antivert -] 25 mg PO TID PRN 11/04/16 Febuxostat [Uloric -] 40 mg PO DAILY 02/18/17 Metoprolol Succinate [Toprol Xl] 12.5 mg PO DAILY 02/18/17 Family Disease History - Family Disease History Family History: Unremarkable Review of Systems - Review of Systems Constitutional: reports: Lethargy, Weakness Eyes: reports: No Symptoms HENT: reports: No Symptoms Neck: reports: No Symptoms Cardiovascular: reports: Chest Pain, Shortness of Breath Respiratory: reports: Cough, SOB, SOB on Exertion Gastrointestinal: reports: No Symptoms Genitourinary: reports: No Symptoms Musculoskeletal: reports: No Symptoms Neurological: reports: No Symptoms Physical Examination Vital Signs: Vital Signs Temperature 98.1 F 02/19/17 17:00 Pulse Rate 68 02/19/17 17:00 Respiratory Rate 20 02/19/17 17:00 Blood Pressure 126/60 02/19/17 17:00 O2 Sat by Pulse Oximetry (%) 100 02/19/17 09:00 Constitutional: Yes: Well Nourished Eyes: Yes: WNL HENT: Yes: WNL Neck: Yes: Supple Cardiovascular: Yes: WNL, Regular Rate and Rhythm, Murmur Respiratory: Yes: Other (Coarse bs b/l) Gastrointestinal: Yes: WNL, Normal Bowel Sounds, Soft Edema: Yes Edema: LLE: Trace, RLE: Trace Neurological: Yes: WNL, Alert, Oriented ...Motor Strength: WNL Labs: CBC, BMP 02/19/17 06:18 02/19/17 06:18 Problem List - Problems (1) Dyspnea Assessment/Plan: Agree w/ possibilty of multifactorial etiology CHF vs pneumonia vs symptomatic anemia Cardio/GI consults appreciated Code(s): R06.00 - DYSPNEA, UNSPECIFIED (2) Anemia Assessment/Plan: Symptomatic anemia At this point hgb has stayed at about 7.2 Eliquis dc'ed and monitor for acute blood loss and will then dc asa if occurs Check stool hemoccult However will transfuse 1 unit PRBC's due to cardiac history Monitor H/H Chronic anemia due to renal dz Code(s): D64.9 - ANEMIA, UNSPECIFIED (3) Pneumonia Assessment/Plan: ? RLL infiltrate on cxr WBC is slightly elevated Cont IV levaquin Code(s): J18.9 - PNEUMONIA, UNSPECIFIED ORGANISM Qualifiers: Pneumonia type: due to unspecified organism Laterality: right Lung location: lower lobe of lung Qualified Code(s): J18.1 - Lobar pneumonia, unspecified organism (4) PAF (paroxysmal atrial fibrillation) Assessment/Plan: Heart rate controlled Cont toprol Eliquis was dc'ed due to anemia Code(s): I48.0 - PAROXYSMAL ATRIAL FIBRILLATION (5) Acute on chronic diastolic (congestive) heart failure Assessment/Plan: Cont IV lasix Monitor electrolytes Cont entrestra Code(s): I50.33 - ACUTE ON CHRONIC DIASTOLIC (CONGESTIVE) HEART FAILURE (6) Chronic kidney disease Assessment/Plan: Will get renal consult Cont ranexa Code(s): N18.9 - CHRONIC KIDNEY DISEASE, UNSPECIFIED Qualifiers: Chronic kidney disease stage: unspecified stage Qualified Code(s): N18.9 - Chronic kidney disease, unspecified (7) CAD (coronary artery disease) Assessment/Plan: Cont asa Code(s): I25.10 - ATHSCL HEART DISEASE OF [place] CORONARY ARTERY W/O ANG PCTRS Qualifiers: Coronary Disease-Associated Artery/Lesion type: unspecified vessel or lesion type [place] vs. transplanted heart: unspecified whether [place] or transplanted heart Associated angina: without angina Qualified Code(s ): I25.10 - Atherosclerotic heart disease of [place] coronary artery without angina pectoris (8) Hypertension Assessment/Plan: BP stable Cont norvasc/NTG/toprol Code(s): I10 - ESSENTIAL (PRIMARY) HYPERTENSION Qualifiers: Hypertension type: essential hypertension Qualified Code(s): I10 - Essential (primary) hypertension (9) HLD (hyperlipidemia) Assessment/Plan: Cont lipitor Code(s): E78.5 - HYPERLIPIDEMIA, UNSPECIFIED Qualifiers: Hyperlipidemia type: mixed hyperlipidemia Qualified Code(s): E78.2 - Mixed hyperlipidemia (10) Diabetes mellitus type II, controlled Assessment/Plan: Cont trajenta/amaryl Code(s): E11.9 - TYPE 2 DIABETES MELLITUS WITHOUT COMPLICATIONS (11) BPH (benign prostatic hyperplasia) Assessment/Plan: Cont flomax Code(s): N40.0 - BENIGN PROSTATIC HYPERPLASIA WITHOUT LOWER URINRY TRACT SYMP (12) Gout attack Assessment/Plan: Cont uloric Code(s): M10.9 - GOUT, UNSPECIFIED Qualifiers: Gout site: foot Gout etiology: idiopathic (13) Osteoarthritis Code(s): M19.90 - UNSPECIFIED OSTEOARTHRITIS, UNSPECIFIED SITE (14) Stented coronary artery Code(s): Z95.5 - PRESENCE OF CORONARY ANGIOPLASTY IMPLANT AND GRAFT
--- NOTE | 2017-02-19 21:02 | CON.NEP ---
Consult Consult Specialty:: nephrology Reason for Consultation:: ckd - History of Present Illness Chief Complaint: chest pain, dyspnea History of Present Illness: Pt is a 81 y/o male who is a poor historian w/ PMH significant for HTN, HLD, CAD (s/p cardiac stents), CHB s/p pacemaker, diabetes, CKD, gout, OA, GERD, anemia( wc has required blood transfusions in the past) and GI bleed. PT presented to the ER w/ increasing dyspnea for at least the past week although he may have had it alittle longer. ALso had a cough. He currently complains of cramping of his lower extremities. No nausea or vomiting. Has foamy urine He had seen me in the office but left to [place] and only came back now because of his discomfort. - Past Medical History Cardio/Vascular: Yes: AFIB, CAD, CHF, HTN, Other (CHB s/p PPM NSVT) Gastrointestinal: Yes: Constipation, GERD, GI Bleed Renal/: Yes: BPH, Other (CKD) Musculoskeletal: Yes: Osteoarthritis, Other (Gout) Endocrine: Yes: Diabetes Mellitus - Past Surgical History Past Surgical History: Yes: Cholecystectomy, Permanent Pacemaker - Alcohol/Substance Use Hx Alcohol Use: No - Smoking History Smoking history: Former smoker Have you smoked in the past 12 months: No Aproximately how many cigarettes per day: 0 If you are a former smoker, when did you quit?: "long time ago" - Social History ADL: Independent History of Recent Travel: No Home Medications - Allergies Allergies/Adverse Reactions: Allergies Allergy/AdvReac Type Severity Reaction Status Date / Time No Known Drug Allergies Allergy Verified 02/18/17 08:29 - Home Medications Home Medications: Ambulatory Orders Aspirin [Aspirin EC] 81 mg PO DAILY 12/01/15 Atorvastatin Ca [Lipitor] 20 mg PO HS 12/01/15 Glimepiride 4 mg PO DAILY 12/01/15 Ranitidine [Zantac -] 150 mg PO BID 12/01/15 Ranolazine [Ranexa] 500 mg PO BID 12/01/15 Sacubitril/Valsartan [Entresto 24 mg-26 mg Tablet] 1 each PO BID 12/01/15 Tamsulosin HCl 0.4 mg PO DAILY 12/01/15 Furosemide [Lasix -] 40 mg PO DAILY #30 tablet 12/07/15 Amlodipine Besylate 2.5 mg PO DAILY 11/04/16 Apixaban [Eliquis] 2.5 mg PO BID 11/04/16 Linaclotide [Linzess] 145 mcg PO DAILY 11/04/16 Linagliptin [Tradjenta] 5 mg PO DAILY 11/04/16 Meclizine HCl [Antivert -] 25 mg PO TID PRN 11/04/16 Febuxostat [Uloric -] 40 mg PO DAILY 02/18/17 Metoprolol Succinate [Toprol Xl] 12.5 mg PO DAILY 02/18/17 Review of Systems - Review of Systems Constitutional: reports: No Symptoms Eyes: reports: No Symptoms HENT: reports: No Symptoms Neck: reports: No Symptoms Cardiovascular: reports: Chest Pain, Shortness of Breath Respiratory: reports: Cough, SOB Gastrointestinal: reports: Constipation. denies: Melena Genitourinary: reports: No Symptoms Breasts: reports: No Symptoms Reported Musculoskeletal: reports: Joint Swelling, Muscle Cramps Integumentary: reports: No Symptoms Neurological: reports: Weakness Endocrine: reports: No Symptoms Hematology/Lymphatic: reports: No Symptoms Psychiatric: reports: No Symptoms Nephrology Consult - Height Height: 5 ft 7 in - Weight Weight: 220 lb - BMI Body Mass Index (BMI): 34.4 - Lab Results CBC,BMP: CBC, BMP 02/19/17 06:18 02/19/17 06:18 Anion Gap: Anion Gap Anion Gap 9 (8-16) 02/19/17 06:18 - Imaging Chest X-ray: Report Reviewed (bilat congestive changes) - Physical Examination Vital Signs: Vital Signs Temperature 98.1 F 02/19/17 17:00 Pulse Rate 68 02/19/17 17:00 Respiratory Rate 20 02/19/17 17:00 Blood Pressure 126/60 02/19/17 17:00 O2 Sat by Pulse Oximetry (%) 100 02/19/17 09:00 Constitutional: Yes: Well Nourished, No Distress, Calm Eyes: Yes: Conjunctiva Clear, EOM Intact HENT: Yes: Atraumatic, Normocephalic Neck: Yes: Supple, Trachea Midline Cardiovascular: Yes: Regular Rate and Rhythm Respiratory: Yes: Rales, Rhonchi Gastrointestinal: Yes: Normal Bowel Sounds Renal/: Yes: WNL Musculoskeletal: Yes: WNL Extremities: No: Cyanosis, Deformity Edema: No Peripheral Pulses WNL: No (I couldnt palpate DP pulses) Wound/Incision: Yes: Clean/Dry Neurological: Yes: WNL Psychiatric: Yes: WNL Assessment/Plan IMPRESSION 1. CKD likely due to diabetes/htn 2. chf 3. s/p pacemaker placement 4. anemia probably from ckd 5. dm 6. htn 7 probable peripheral vascular disease PLAN continue diuresis with lasix 40 mg daily evaluate peripheral circulation laxatives necessary since constipation can be associated with hyperkalemia obtain urinalysis and urine protein and creatinine anemia panel avoid nephrotoxins MV
[2017-02-19] MEDS: ATORVASTATIN CA 20 MG TABLET (FP) PO SCH (22:39)
[2017-02-20 07:23] LABS: BASOPHIL 0.4 % (0-2.0); EOSINOPHIL 0.9 % (0-4.5); MCH 27.1 pg (25.7-33.7); MCHC 31.8 g/dl (32.0-35.9); MEAN PLT VOLUME 7.7 fl (7.5-11.1); NEUTROPHILS 69.8 % (42.8-82.8); PLATELET COUNT 233 K/MM3 (134-434); RDW 17.1 % (11.9-15.9); WHITE BLOOD COUNT 11.2 K/mm3 (4.0-10.0)
[2017-02-20 07:58] LABS: ALBUMIN 2.9 g/dl (3.4-5.0); CALCIUM 8.4 mg/dL (8.5-10.1)
[2017-02-20 08:02] LABS: BILIRUBIN,TOTAL 0.5 mg/dL (0.2-1.0); COCKROFT - GAULT 35.66; CREATININE 2.3 mg/dL (0.7-1.3); TOT PROT 6.8 g/dl (6.4-8.2)
[2017-02-20] MEDS ORDERED: PT OWN MED DRAWER 7, Y5N ONE ×2 (08:33→20:54)
--- NOTE | 2017-02-20 08:41 | PN ---
Progress Note, Physician Chief Complaint: comfortable, denies chest pain or any worsened SOB TELE: V pace, some VPCs and occasional couplets - Current Medication List Current Medications: Active Medications Amlodipine Besylate (Norvasc -) 2.5 mg PO DAILY [facility] Last Admin: 02/19/17 09:51 Dose: 2.5 mg Aspirin (Ecotrin -) 81 mg PO DAILY [facility] Last Admin: 02/19/17 10:39 Dose: Not Given Atorvastatin Calcium (Lipitor -) 20 mg PO HS [facility] Last Admin: 02/19/17 22:39 Dose: 20 mg Febuxostat (Uloric -) 40 mg PO DAILY [facility] Last Admin: 02/19/17 09:51 Dose: 40 mg Glimepiride (Amaryl -) 4 mg PO DAILY@0700 [facility] Last Admin: 02/19/17 06:44 Dose: 4 mg Levofloxacin (Levaquin 250 Mg Premixed Ivpb -) 50 mls @ 50 mls/hr IVPB DAILY [facility] Last Admin: 02/19/17 09:51 Dose: 50 mls/hr Meclizine HCl (Antivert -) 25 mg PO TID PRN PRN Reason: VERTIGO Metoprolol Succinate (Toprol Xl -) 12.5 mg PO DAILY [facility] Last Admin: 02/19/17 09:50 Dose: 12.5 mg Non-Formulary Medication (Linaclotide [Linzess]) 145 mcg PO DAILY [facility] Non-Formulary Medication (Linagliptin [Tradjenta]) 5 mg PO DAILY [facility] Polyethylene Glycol (Miralax (For Daily Use) -) 17 gm PO DAILY [facility] Ranitidine HCl (Zantac -) 150 mg PO BID [facility] Last Admin: 02/19/17 22:39 Dose: 150 mg Ranolazine (Ranexa -) 500 mg PO BID [facility] Last Admin: 02/19/17 22:39 Dose: 500 mg Tamsulosin HCl (Flomax -) 0.4 mg PO DAILY@0830 [facility] Last Admin: 02/19/17 09:49 Dose: 0.4 mg - Objective Vital Signs: Vital Signs Temperature 97.9 F 02/20/17 07:04 Pulse Rate 79 02/20/17 07:04 Respiratory Rate 20 02/20/17 07:07 Blood Pressure 134/77 02/20/17 07:04 O2 Sat by Pulse Oximetry (%) 98 02/20/17 07:07 Constitutional: Yes: Calm Eyes: Yes: Conjunctiva Clear Cardiovascular: Yes: Regular Rate and Rhythm Respiratory: Yes: CTA Bilaterally Gastrointestinal: Yes: Soft Edema: Yes Edema: LLE: 1+, RLE: 1+ Labs: CBC, BMP 02/20/17 05:35 02/20/17 05:35 INR, PTT INR 1.86 (0.82-1.09) H 02/18/17 09:03 Microbiology 02/18/17 10:10 Blood - Peripheral Venous Blood Culture - Preliminary NO GROWTH OBTAINED AFTER 24 HOURS, INCUBATION TO CONTINUE FOR 4 DAYS. 02/18/17 10:10 Blood - Peripheral Venous Blood Culture - Preliminary NO GROWTH OBTAINED AFTER 24 HOURS, INCUBATION TO CONTINUE FOR 4 DAYS. Laboratory Tests 02/20/17 02/20/17 05:35 05:35 WBC 11.2 H Hgb 8.2 L D Plt Count 233 Potassium 4.5 Creatinine 2.3 H - ....Imaging EKG: Image Reviewed Assessment/Plan Assessment/Plan 80 year old man with a history of CAD with prior PCI, h/o ischemic cardiomyopathy but normal LV function on most recent evaluations, Pafib, CHB s/ p PPM, HTN, DMII, HLD, CKD, NSVT, chronic anemia and GI bleed requiring transfusion on prior admissions, admitted with sob and mild chest discomfort. SOB-acute on chronic diastolic CHF vs PNA vs symptomatic anemia -started on Levaquin -continue Lasix 40mg IV daily for now -monitor strict I/Os and daily weights -monitor bun/creat electrolytes and replete as needed Afib-paroxysmal, with recurrent anemia, h/o CHB s/p PPM -stop eliquis -cont ASA 81mg daily alone if H/H stable -cont Toprol CAD-h/o stents -cont ASA 81mg daily for now -cont toprol, ranexa, lipitor
[2017-02-20] MEDS: TAMSULOSIN HCL 0.4 MG CAP.ER.24H (FP) PO SCH (08:54)
[2017-02-20] MEDS: GLIMEPIRIDE 4 MG TABLET (FP) PO SCH (08:54)
[2017-02-20] MEDS: POLYETHYLENE GLYCOL 3350 119 GM BTL PO SCH (09:01)
[2017-02-20] MEDS: ASPIRIN COATED 81 MG TABLET.EC PO SCH (09:01)
[2017-02-20] MEDS: RANITIDINE HCL 150 MG TABLET (FP) PO SCH ×2 (09:01→21:06)
[2017-02-20] MEDS: LEVOFLOXACIN 250 MG IVPB 50 ML IVPB SCH (09:01)
[2017-02-20] MEDS: METOPROLOL SUCCINATE 25 MG TAB.SR.24H (FP) PO SCH (09:01)
[2017-02-20] MEDS: amLODIPine BESYLATE 2.5 MG TABLET (FP) PO SCH (09:02)
[2017-02-20] MEDS: RANOLAZINE E.R. 500 MG TABLET (FP) PO SCH ×2 (09:02→21:06)
[2017-02-20] MEDS: SACUBITRIL/VALSARTAN 24 MG-26 MG TABLET PO SCH ×2 (09:02→21:06)
[2017-02-20] MEDS: FEBUXOSTAT 40 MG TAB PO SCH (09:03)
--- NOTE | 2017-02-20 16:10 | PN ---
Progress Note, Physician History of Present Illness: Pt seen and examined at bedside. He feels that his breathing and lower extremity edema are improving. - Current Medication List Current Medications: Active Medications Amlodipine Besylate (Norvasc -) 2.5 mg PO DAILY [facility] Last Admin: 02/20/17 09:02 Dose: 2.5 mg Aspirin (Ecotrin -) 81 mg PO DAILY [facility] Last Admin: 02/20/17 09:01 Dose: 81 mg Atorvastatin Calcium (Lipitor -) 20 mg PO HS [facility] Last Admin: 02/19/17 22:39 Dose: 20 mg Febuxostat (Uloric -) 40 mg PO DAILY [facility] Last Admin: 02/20/17 09:03 Dose: 40 mg Glimepiride (Amaryl -) 4 mg PO DAILY@0700 [facility] Last Admin: 02/20/17 08:54 Dose: 4 mg Levofloxacin (Levaquin 250 Mg Premixed Ivpb -) 50 mls @ 50 mls/hr IVPB DAILY [facility] Last Admin: 02/20/17 09:01 Dose: 50 mls/hr Meclizine HCl (Antivert -) 25 mg PO TID PRN PRN Reason: VERTIGO Metoprolol Succinate (Toprol Xl -) 12.5 mg PO DAILY [facility] Last Admin: 02/20/17 09:01 Dose: 12.5 mg Non-Formulary Medication (Linaclotide [Linzess]) 145 mcg PO DAILY [facility] Non-Formulary Medication (Linagliptin [Tradjenta]) 5 mg PO DAILY [facility] Polyethylene Glycol (Miralax (For Daily Use) -) 17 gm PO DAILY [facility] Last Admin: 02/20/17 09:01 Dose: 17 grams Ranitidine HCl (Zantac -) 150 mg PO BID [facility] Last Admin: 02/20/17 09:01 Dose: 150 mg Ranolazine (Ranexa -) 500 mg PO BID [facility] Last Admin: 02/20/17 09:02 Dose: 500 mg Tamsulosin HCl (Flomax -) 0.4 mg PO DAILY@0830 [facility] Last Admin: 02/20/17 08:54 Dose: 0.4 mg - Objective Vital Signs: Vital Signs Temperature 97.4 F L 02/20/17 15:00 Pulse Rate 60 02/20/17 15:00 Respiratory Rate 20 02/20/17 15:00 Blood Pressure 105/56 02/20/17 15:00 O2 Sat by Pulse Oximetry (%) 98 02/20/17 07:07 Constitutional: Yes: Calm Eyes: Yes: Conjunctiva Clear HENT: Yes: Atraumatic Neck: Yes: Supple Cardiovascular: Yes: S1, S2 Respiratory: Yes: CTA Bilaterally Gastrointestinal: Yes: Normal Bowel Sounds, Soft Genitourinary: Yes: WNL Musculoskeletal: Yes: WNL Edema: Yes Edema: LLE: 1+, RLE: 1+ Neurological: Yes: Oriented Psychiatric: Yes: Oriented Labs: CBC, BMP 02/20/17 05:35 02/20/17 05:35 INR, PTT INR 1.86 (0.82-1.09) H 02/18/17 09:03 Problem List - Problems (1) Acute on chronic diastolic (congestive) heart failure Code(s): I50.33 - ACUTE ON CHRONIC DIASTOLIC (CONGESTIVE) HEART FAILURE (2) CAD (coronary artery disease) Code(s): I25.10 - ATHSCL HEART DISEASE OF [place] CORONARY ARTERY W/O ANG PCTRS Qualifiers: Coronary Disease-Associated Artery/Lesion type: unspecified vessel or lesion type [place] vs. transplanted heart: unspecified whether [place] or transplanted heart Associated angina: without angina Qualified Code(s ): I25.10 - Atherosclerotic heart disease of [place] coronary artery without angina pectoris (3) Chronic kidney disease Code(s): N18.9 - CHRONIC KIDNEY DISEASE, UNSPECIFIED Qualifiers: Chronic kidney disease stage: unspecified stage Qualified Code(s): N18.9 - Chronic kidney disease, unspecified (4) DM (diabetes mellitus), type 2 with renal complications Code(s): E11.29 - TYPE 2 DIABETES MELLITUS W OTH DIABETIC KIDNEY COMPLICATION Qualifiers: Diabetes mellitus complication detail: with chronic kidney disease Diabetes mellitus intermediate insulin use: with termite control servicer use Chronic kidney disease stage: unspecified stage Qualified Code(s): E11.22 - Type 2 diabetes mellitus with diabetic chronic kidney disease; N18.1 - Chronic kidney disease, stage 1; Z79.4 - termite control servicer (current) use of insulin (5) Hypertension Code(s): I10 - ESSENTIAL (PRIMARY) HYPERTENSION Qualifiers: Hypertension type: essential hypertension Qualified Code(s): I10 - Essential (primary) hypertension Assessment/Plan Current Medications Generic Name Dose Route Start Last Admin Trade Name Freq PRN Reason Stop Dose Admin Amlodipine Besylate 2.5 mg 02/19/17 10:00 02/20/17 09:02 Norvasc - PO 2.5 mg DAILY [facility] Administration Aspirin 81 mg 02/19/17 02:30 02/20/17 09:01 Ecotrin - PO 81 mg DAILY [facility] Administration Atorvastatin Calcium 20 mg 02/19/17 22:00 02/19/17 22:39 Lipitor - PO 20 mg HS [facility] Administration Febuxostat 40 mg 02/19/17 10:00 02/20/17 09:03 Uloric - PO 40 mg DAILY [facility] Administration Glimepiride 4 mg 02/19/17 07:00 02/20/17 08:54 Amaryl - PO 4 mg DAILY@0700 [facility] Administration Levofloxacin 50 mls @ 50 mls/hr 02/19/17 10:00 02/20/17 09:01 Levaquin 250 Mg Premixed Ivpb - IVPB 50 mls/hr DAILY [facility] Administration Meclizine HCl 25 mg 02/19/17 02:25 Antivert - PO TID PRN VERTIGO Metoprolol Succinate 12.5 mg 02/19/17 10:00 02/20/17 09:01 Toprol Xl - PO 12.5 mg DAILY [facility] Administration Non-Formulary Medication 145 mcg 02/19/17 10:00 Linaclotide [Linzess] PO DAILY [facility] Non-Formulary Medication 5 mg 02/19/17 10:00 Linagliptin [Tradjenta] PO DAILY [facility] Polyethylene Glycol 17 gm 02/20/17 10:00 02/20/17 09:01 Miralax (For Daily Use) - PO 17 grams DAILY [facility] Administration Ranitidine HCl 150 mg 02/19/17 10:00 02/20/17 09:01 Zantac - PO 150 mg BID [facility] Administration Ranolazine 500 mg 02/19/17 10:00 02/20/17 09:02 Ranexa - PO 500 mg BID [facility] Administration Tamsulosin HCl 0.4 mg 02/19/17 08:30 02/20/17 08:54 Flomax - PO 0.4 mg DAILY@0830 [facility] Administration IMPRESSION 1. CKD 2. CHF 3. s/p pacemaker placement 4. anemia 5. dm 6. htn Plan - cont with lasix - renal function is improving - check renal ultrasound - check UA - will need renal workup, will evaluate in office - anemia workup Dr Rosario
[2017-02-20 19:07] LABS: URINE APPEARANCE CLEAR; URINE BILIRUBIN NEGATIVE (NEGATIVE); URINE BLOOD NEGATIVE (NEGATIVE); URINE COLOR LTYELLOW; URINE GLUCOSE (UA) NEGATIVE (NEGATIVE); URINE KETONE NEGATIVE (NEGATIVE); URINE LEUK ESTERASE NEGATIVE (NEGATIVE); URINE NITRITE NEGATIVE (NEGATIVE); URINE UROBILINOGEN NEGATIVE E.U./dl (0.2-1.0)
[2017-02-20 19:53] LABS: URINE PROTEIN 2+ (NEGATIVE)
[2017-02-20 20:40] LABS: URINE MUCUS RARE; URINE RBC 1 /hpf (0-3); URINE WBC 1 /hpf (3-5)
[2017-02-20] MEDS: ATORVASTATIN CA 20 MG TABLET (FP) PO SCH (21:06)
--- NOTE | 2017-02-20 22:35 | PN ---
Progress Note, Physician History of Present Illness: No new complaints - Current Medication List Current Medications: Active Medications Amlodipine Besylate (Norvasc -) 2.5 mg PO DAILY [facility] Last Admin: 02/20/17 09:02 Dose: 2.5 mg Aspirin (Ecotrin -) 81 mg PO DAILY [facility] Last Admin: 02/20/17 09:01 Dose: 81 mg Atorvastatin Calcium (Lipitor -) 20 mg PO HS [facility] Last Admin: 02/20/17 21:06 Dose: 20 mg Febuxostat (Uloric -) 40 mg PO DAILY [facility] Last Admin: 02/20/17 09:03 Dose: 40 mg Glimepiride (Amaryl -) 4 mg PO DAILY@0700 [facility] Last Admin: 02/20/17 08:54 Dose: 4 mg Levofloxacin (Levaquin 250 Mg Premixed Ivpb -) 50 mls @ 50 mls/hr IVPB DAILY [facility] Last Admin: 02/20/17 09:01 Dose: 50 mls/hr Meclizine HCl (Antivert -) 25 mg PO TID PRN PRN Reason: VERTIGO Metoprolol Succinate (Toprol Xl -) 12.5 mg PO DAILY [facility] Last Admin: 02/20/17 09:01 Dose: 12.5 mg Non-Formulary Medication (Linaclotide [Linzess]) 145 mcg PO DAILY [facility] Non-Formulary Medication (Linagliptin [Tradjenta]) 5 mg PO DAILY [facility] Polyethylene Glycol (Miralax (For Daily Use) -) 17 gm PO DAILY [facility] Last Admin: 02/20/17 09:01 Dose: 17 grams Ranitidine HCl (Zantac -) 150 mg PO BID [facility] Last Admin: 02/20/17 21:06 Dose: 150 mg Ranolazine (Ranexa -) 500 mg PO BID [facility] Last Admin: 02/20/17 21:06 Dose: 500 mg Tamsulosin HCl (Flomax -) 0.4 mg PO DAILY@0830 [facility] Last Admin: 02/20/17 08:54 Dose: 0.4 mg - Objective Vital Signs: Vital Signs Temperature 98.5 F 02/20/17 17:00 Pulse Rate 60 02/20/17 17:00 Respiratory Rate 20 02/20/17 20:43 Blood Pressure 113/62 02/20/17 17:00 O2 Sat by Pulse Oximetry (%) 98 02/20/17 20:43 Labs: CBC, BMP 02/20/17 05:35 02/20/17 05:35 INR, PTT INR 1.86 (0.82-1.09) H 02/18/17 09:03 Problem List - Problems (1) Dyspnea Code(s): R06.00 - DYSPNEA, UNSPECIFIED (2) Anemia Code(s): D64.9 - ANEMIA, UNSPECIFIED (3) Pneumonia Code(s): J18.9 - PNEUMONIA, UNSPECIFIED ORGANISM Qualifiers: Pneumonia type: due to unspecified organism Laterality: right Lung location: lower lobe of lung Qualified Code(s): J18.1 - Lobar pneumonia, unspecified organism (4) PAF (paroxysmal atrial fibrillation) Code(s): I48.0 - PAROXYSMAL ATRIAL FIBRILLATION (5) Acute on chronic diastolic (congestive) heart failure Code(s): I50.33 - ACUTE ON CHRONIC DIASTOLIC (CONGESTIVE) HEART FAILURE (6) Chronic kidney disease Code(s): N18.9 - CHRONIC KIDNEY DISEASE, UNSPECIFIED Qualifiers: Chronic kidney disease stage: unspecified stage Qualified Code(s): N18.9 - Chronic kidney disease, unspecified (7) CAD (coronary artery disease) Code(s): I25.10 - ATHSCL HEART DISEASE OF [place] CORONARY ARTERY W/O ANG PCTRS Qualifiers: Coronary Disease-Associated Artery/Lesion type: unspecified vessel or lesion type [place] vs. transplanted heart: unspecified whether [place] or transplanted heart Associated angina: without angina Qualified Code(s ): I25.10 - Atherosclerotic heart disease of [place] coronary artery without angina pectoris (8) Hypertension Code(s): I10 - ESSENTIAL (PRIMARY) HYPERTENSION Qualifiers: Hypertension type: essential hypertension Qualified Code(s): I10 - Essential (primary) hypertension (9) HLD (hyperlipidemia) Code(s): E78.5 - HYPERLIPIDEMIA, UNSPECIFIED Qualifiers: Hyperlipidemia type: mixed hyperlipidemia Qualified Code(s): E78.2 - Mixed hyperlipidemia (10) Diabetes mellitus type II, controlled Code(s): E11.9 - TYPE 2 DIABETES MELLITUS WITHOUT COMPLICATIONS (11) BPH (benign prostatic hyperplasia) Code(s): N40.0 - BENIGN PROSTATIC HYPERPLASIA WITHOUT LOWER URINRY TRACT SYMP (12) Gout attack Code(s): M10.9 - GOUT, UNSPECIFIED Qualifiers: Gout site: foot Gout etiology: idiopathic (13) Osteoarthritis Code(s): M19.90 - UNSPECIFIED OSTEOARTHRITIS, UNSPECIFIED SITE (14) Stented coronary artery Code(s): Z95.5 - PRESENCE OF CORONARY ANGIOPLASTY IMPLANT AND GRAFT
[2017-02-21] MEDS ORDERED: KETOROLAC TROMETHAMINE 30 MG/1 ML VIAL IVPB ONE (01:15)
[2017-02-21] MEDS: GLIMEPIRIDE 4 MG TABLET (FP) PO SCH ×2 (06:32→09:20)
[2017-02-21] MEDS ORDERED: PT OWN MED DRAWER 7, Y5N ONE ×2 (07:53→22:30)
--- NOTE | 2017-02-21 08:37 | PN ---
Progress Note, Physician History of Present Illness: no overnight events. no new complaints. sob improved - Current Medication List Current Medications: Active Medications Amlodipine Besylate (Norvasc -) 2.5 mg PO DAILY [facility] Last Admin: 02/20/17 09:02 Dose: 2.5 mg Aspirin (Ecotrin -) 81 mg PO DAILY [facility] Last Admin: 02/20/17 09:01 Dose: 81 mg Atorvastatin Calcium (Lipitor -) 20 mg PO HS [facility] Last Admin: 02/20/17 21:06 Dose: 20 mg Febuxostat (Uloric -) 40 mg PO DAILY [facility] Last Admin: 02/20/17 09:03 Dose: 40 mg Glimepiride (Amaryl -) 4 mg PO DAILY@0700 [facility] Last Admin: 02/21/17 06:32 Dose: Not Given Levofloxacin (Levaquin 250 Mg Premixed Ivpb -) 50 mls @ 50 mls/hr IVPB DAILY [facility] Last Admin: 02/20/17 09:01 Dose: 50 mls/hr Meclizine HCl (Antivert -) 25 mg PO TID PRN PRN Reason: VERTIGO Metoprolol Succinate (Toprol Xl -) 12.5 mg PO DAILY [facility] Last Admin: 02/20/17 09:01 Dose: 12.5 mg Non-Formulary Medication (Linaclotide [Linzess]) 145 mcg PO DAILY [facility] Non-Formulary Medication (Linagliptin [Tradjenta]) 5 mg PO DAILY [facility] Polyethylene Glycol (Miralax (For Daily Use) -) 17 gm PO DAILY [facility] Last Admin: 02/20/17 09:01 Dose: 17 grams Ranitidine HCl (Zantac -) 150 mg PO BID [facility] Last Admin: 02/20/17 21:06 Dose: 150 mg Ranolazine (Ranexa -) 500 mg PO BID [facility] Last Admin: 02/20/17 21:06 Dose: 500 mg Tamsulosin HCl (Flomax -) 0.4 mg PO DAILY@0830 [facility] Last Admin: 02/20/17 08:54 Dose: 0.4 mg - Objective Vital Signs: Vital Signs Temperature 98.7 F 02/21/17 07:03 Pulse Rate 68 02/21/17 07:03 Respiratory Rate 18 02/21/17 07:05 Blood Pressure 123/62 02/21/17 07:03 O2 Sat by Pulse Oximetry (%) 98 02/21/17 07:05 Constitutional: Yes: No Distress, Calm, Obese Eyes: Yes: WNL, Conjunctiva Clear, EOM Intact, PERRL HENT: Yes: WNL, Atraumatic, Normocephalic Neck: Yes: WNL, Supple, Trachea Midline Cardiovascular: Yes: Regular Rate and Rhythm, S1, S2. No: Bradycardia, Tachycardia, Pulse Irregular, Bruit, JVD, Gallop, Murmur, Rub, S3, S4, Varicosities Respiratory: Yes: Regular, Diminished. No: Rales, Rhonchi, SOB, Wheezes Gastrointestinal: Yes: Normal Bowel Sounds, Soft. No: Distention, Tenderness Musculoskeletal: Yes: WNL Extremities: Yes: WNL Edema: Yes Edema: LLE: Trace, RLE: Trace Peripheral Pulses WNL: Yes Peripheral Pulses: Left Doralis Pedis: 2+, Right Dorsalis Pedis: 2+ Integumentary: Yes: WNL Neurological: Yes: Alert, Oriented Psychiatric: Yes: Alert, Oriented Labs: CBC, BMP 02/20/17 05:35 INR, PTT INR 1.86 (0.82-1.09) H 02/18/17 09:03 - ....Imaging Chest X-ray: Report Reviewed, Image Reviewed EKG: Report Reviewed, Image Reviewed Other: Report Reviewed, Image Reviewed (tele-AV paced PVCs) Assessment/Plan 80 year old man with a history of CAD with prior PCI, h/o ischemic cardiomyopathy but normal LV function on most recent evaluations, Pafib, CHB s/ p PPM, HTN, DMII, HLD, CKD, NSVT, chronic anemia and GI bleed requiring transfusion on prior admissions, admitted with sob and mild chest discomfort. SOB-acute on chronic diastolic CHF vs PNA vs symptomatic anemia -Lasix not active, on review of his medications pt has not received lasix since 02/18. -cont to hold Lasix given rising bun/creat -will monitor and dose Lasix prn -monitor strict I/Os and daily weights -monitor bun/creat electrolytes and replete as needed -ok to dc tele Afib-paroxysmal, with recurrent anemia, h/o CHB s/p PPM -stop eliquis -cont ASA 81mg daily alone if H/H stable -cont Toprol CAD-h/o stents -cont ASA 81mg daily for now -cont toprol, ranexa, lipitor
[2017-02-21 09:06] LABS: CALCIUM 8.8 mg/dL (8.5-10.1); COCKROFT - GAULT 29.49; CREATININE 2.8 mg/dL (0.7-1.3)
[2017-02-21] MEDS: LEVOFLOXACIN 250 MG IVPB 50 ML IVPB SCH (09:19)
[2017-02-21] MEDS: FEBUXOSTAT 40 MG TAB PO SCH (09:19)
[2017-02-21] MEDS: RANOLAZINE E.R. 500 MG TABLET (FP) PO SCH ×2 (09:20→22:21)
[2017-02-21] MEDS: TAMSULOSIN HCL 0.4 MG CAP.ER.24H (FP) PO SCH (09:20)
[2017-02-21] MEDS: METOPROLOL SUCCINATE 25 MG TAB.SR.24H (FP) PO SCH (09:20)
[2017-02-21] MEDS: RANITIDINE HCL 150 MG TABLET (FP) PO SCH ×2 (09:20→22:21)
[2017-02-21] MEDS: ASPIRIN COATED 81 MG TABLET.EC PO SCH (09:20)
[2017-02-21] MEDS: POLYETHYLENE GLYCOL 3350 119 GM BTL PO SCH (09:21)
[2017-02-21] MEDS: SACUBITRIL/VALSARTAN 24 MG-26 MG TABLET PO SCH ×2 (09:21→22:31)
[2017-02-21] MEDS: amLODIPine BESYLATE 2.5 MG TABLET (FP) PO SCH (09:22)
--- NOTE | 2017-02-21 12:36 | PN ---
Progress Note, Physician History of Present Illness: Pt seen and examined at bedside. He is awake and alert. He denies shortness of breath today. - Current Medication List Current Medications: Active Medications Amlodipine Besylate (Norvasc -) 2.5 mg PO DAILY [facility] Last Admin: 02/21/17 09:22 Dose: 2.5 mg Aspirin (Ecotrin -) 81 mg PO DAILY [facility] Last Admin: 02/21/17 09:20 Dose: 81 mg Atorvastatin Calcium (Lipitor -) 20 mg PO HS [facility] Last Admin: 02/20/17 21:06 Dose: 20 mg Febuxostat (Uloric -) 40 mg PO DAILY [facility] Last Admin: 02/21/17 09:19 Dose: 40 mg Glimepiride (Amaryl -) 4 mg PO DAILY@0700 [facility] Last Admin: 02/21/17 09:20 Dose: 4 mg Levofloxacin (Levaquin 250 Mg Premixed Ivpb -) 50 mls @ 50 mls/hr IVPB DAILY [facility] Last Admin: 02/21/17 09:19 Dose: 50 mls/hr Meclizine HCl (Antivert -) 25 mg PO TID PRN PRN Reason: VERTIGO Metoprolol Succinate (Toprol Xl -) 12.5 mg PO DAILY [facility] Last Admin: 02/21/17 09:20 Dose: 12.5 mg Non-Formulary Medication (Linaclotide [Linzess]) 145 mcg PO DAILY [facility] Non-Formulary Medication (Linagliptin [Tradjenta]) 5 mg PO DAILY [facility] Polyethylene Glycol (Miralax (For Daily Use) -) 17 gm PO DAILY [facility] Last Admin: 02/21/17 09:21 Dose: 17 grams Ranitidine HCl (Zantac -) 150 mg PO BID [facility] Last Admin: 02/21/17 09:20 Dose: 150 mg Ranolazine (Ranexa -) 500 mg PO BID [facility] Last Admin: 02/21/17 09:20 Dose: 500 mg Tamsulosin HCl (Flomax -) 0.4 mg PO DAILY@0830 [facility] Last Admin: 02/21/17 09:20 Dose: 0.4 mg - Objective Vital Signs: Vital Signs Temperature 98.7 F 02/21/17 07:03 Pulse Rate 68 02/21/17 07:03 Respiratory Rate 18 02/21/17 07:05 Blood Pressure 123/62 02/21/17 07:03 O2 Sat by Pulse Oximetry (%) 98 02/21/17 07:05 Constitutional: Yes: Calm Eyes: Yes: Conjunctiva Clear HENT: Yes: Atraumatic Neck: Yes: Supple Cardiovascular: Yes: S1, S2 Respiratory: Yes: CTA Bilaterally Gastrointestinal: Yes: Soft Genitourinary: Yes: WNL Musculoskeletal: Yes: WNL Edema: Yes Edema: LLE: 1+, RLE: 1+ Neurological: Yes: Oriented Psychiatric: Yes: Oriented Labs: CBC, BMP 02/20/17 05:35 02/21/17 05:40 INR, PTT INR 1.86 (0.82-1.09) H 02/18/17 09:03 Problem List - Problems (1) Acute on chronic diastolic (congestive) heart failure Code(s): I50.33 - ACUTE ON CHRONIC DIASTOLIC (CONGESTIVE) HEART FAILURE (2) CAD (coronary artery disease) Code(s): I25.10 - ATHSCL HEART DISEASE OF [place] CORONARY ARTERY W/O ANG PCTRS Qualifiers: Coronary Disease-Associated Artery/Lesion type: unspecified vessel or lesion type [place] vs. transplanted heart: unspecified whether [place] or transplanted heart Associated angina: without angina Qualified Code(s ): I25.10 - Atherosclerotic heart disease of [place] coronary artery without angina pectoris (3) Chronic kidney disease Code(s): N18.9 - CHRONIC KIDNEY DISEASE, UNSPECIFIED Qualifiers: Chronic kidney disease stage: unspecified stage Qualified Code(s): N18.9 - Chronic kidney disease, unspecified (4) DM (diabetes mellitus), type 2 with renal complications Code(s): E11.29 - TYPE 2 DIABETES MELLITUS W OTH DIABETIC KIDNEY COMPLICATION Qualifiers: Diabetes mellitus complication detail: with chronic kidney disease Diabetes mellitus 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 insulin use: with half-way use Chronic kidney disease stage: unspecified stage Qualified Code(s): E11.22 - Type 2 diabetes mellitus with diabetic chronic kidney disease; N18.1 - Chronic kidney disease, stage 1; Z79.4 - penitentiary (current) use of insulin (5) Hypertension Code(s): I10 - ESSENTIAL (PRIMARY) HYPERTENSION Qualifiers: Hypertension type: essential hypertension Qualified Code(s): I10 - Essential (primary) hypertension Assessment/Plan Current Medications Generic Name Dose Route Start Last Admin Trade Name Freq PRN Reason Stop Dose Admin Amlodipine Besylate 2.5 mg 02/19/17 10:00 02/21/17 09:22 Norvasc - PO 2.5 mg DAILY [facility] Administration Aspirin 81 mg 02/19/17 02:30 02/21/17 09:20 Ecotrin - PO 81 mg DAILY [facility] Administration Atorvastatin Calcium 20 mg 02/19/17 22:00 02/20/17 21:06 Lipitor - PO 20 mg HS [facility] Administration Febuxostat 40 mg 02/19/17 10:00 02/21/17 09:19 Uloric - PO 40 mg DAILY [facility] Administration Glimepiride 4 mg 02/19/17 07:00 02/21/17 09:20 Amaryl - PO 4 mg DAILY@0700 [facility] Administration Levofloxacin 50 mls @ 50 mls/hr 02/19/17 10:00 02/21/17 09:19 Levaquin 250 Mg Premixed Ivpb - IVPB 50 mls/hr DAILY [facility] Administration Meclizine HCl 25 mg 02/19/17 02:25 Antivert - PO TID PRN VERTIGO Metoprolol Succinate 12.5 mg 02/19/17 10:00 02/21/17 09:20 Toprol Xl - PO 12.5 mg DAILY [facility] Administration Non-Formulary Medication 145 mcg 02/19/17 10:00 Linaclotide [Linzess] PO DAILY [facility] Non-Formulary Medication 5 mg 02/19/17 10:00 Linagliptin [Tradjenta] PO DAILY [facility] Polyethylene Glycol 17 gm 02/20/17 10:00 02/21/17 09:21 Miralax (For Daily Use) - PO 17 grams DAILY [facility] Administration Ranitidine HCl 150 mg 02/19/17 10:00 02/21/17 09:20 Zantac - PO 150 mg BID [facility] Administration Ranolazine 500 mg 02/19/17 10:00 02/21/17 09:20 Ranexa - PO 500 mg BID [facility] Administration Tamsulosin HCl 0.4 mg 02/19/17 08:30 02/21/17 09:20 Flomax - PO 0.4 mg DAILY@0830 [facility] Administration Laboratory Tests 02/20/17 18:25 Protein/Creatinin Ratio 1.43 IMPRESSION 1. CKD 2. CHF 3. s/p pacemaker placement 4. anemia 5. dm 6. htn Plan - stop NSAIDS - renal function worse today, will hold of lasix today - repeat labs in am - renal ultrasound reviewed, there is renal atrophy - will need ckd workup as outpt - cardio input appreciated - anemia workup Dr Roasrio
--- NOTE | 2017-02-21 19:13 | PN ---
GI Progress Note Subjective: Events noted. No new complaints - Objective Vital Signs: Vital Signs Temperature 97.4 F L 02/21/17 17:00 Pulse Rate 59 L 02/21/17 17:00 Respiratory Rate 20 02/21/17 17:00 Blood Pressure 129/58 02/21/17 17:00 O2 Sat by Pulse Oximetry (%) 98 02/21/17 07:05 Constitutional: Well Nourished HENT: Yes: Normocephalic Cardiovascular: Yes: Regular Rate and Rhythm Respiratory: Yes: CTA Bilaterally Gastrointestinal Inspection: Yes: Distention ...Auscultate: Yes: Normoactive Bowel Sounds ...Palpate: No: Tenderness ...Percussion: Yes: Tympanitic Labs: CBC, BMP 02/20/17 05:35 02/21/17 05:40 INR, PTT INR 1.86 (0.82-1.09) H 02/18/17 09:03 - ....Imaging X-ray: Report Reviewed (AXR no obstruction) Ultrasound: Report Reviewed (No acute findings. No ascites) Assessment/Plan Anemia liklelysecondary to CKD and B12 deficiency ([id number]) Follow anti parietal cell AB May need regular B12 supplementation No evidence of bleeding Will see prn
[2017-02-21] MEDS: ATORVASTATIN CA 20 MG TABLET (FP) PO SCH (22:21)
--- NOTE | 2017-02-21 23:43 | PN ---
Progress Note, Physician History of Present Illness: No new complaints - Current Medication List Current Medications: Active Medications Amlodipine Besylate (Norvasc -) 2.5 mg PO DAILY [facility] Last Admin: 02/21/17 09:22 Dose: 2.5 mg Aspirin (Ecotrin -) 81 mg PO DAILY [facility] Last Admin: 02/21/17 09:20 Dose: 81 mg Atorvastatin Calcium (Lipitor -) 20 mg PO HS [facility] Last Admin: 02/21/17 22:21 Dose: 20 mg Febuxostat (Uloric -) 40 mg PO DAILY [facility] Last Admin: 02/21/17 09:19 Dose: 40 mg Glimepiride (Amaryl -) 4 mg PO DAILY@0700 [facility] Last Admin: 02/21/17 09:20 Dose: 4 mg Levofloxacin (Levaquin 250 Mg Premixed Ivpb -) 50 mls @ 50 mls/hr IVPB DAILY [facility] Last Admin: 02/21/17 09:19 Dose: 50 mls/hr Meclizine HCl (Antivert -) 25 mg PO TID PRN PRN Reason: VERTIGO Metoprolol Succinate (Toprol Xl -) 12.5 mg PO DAILY [facility] Last Admin: 02/21/17 09:20 Dose: 12.5 mg Non-Formulary Medication (Linaclotide [Linzess]) 145 mcg PO DAILY [facility] Non-Formulary Medication (Linagliptin [Tradjenta]) 5 mg PO DAILY [facility] Polyethylene Glycol (Miralax (For Daily Use) -) 17 gm PO DAILY [facility] Last Admin: 02/21/17 09:21 Dose: 17 grams Ranitidine HCl (Zantac -) 150 mg PO BID [facility] Last Admin: 02/21/17 22:21 Dose: 150 mg Ranolazine (Ranexa -) 500 mg PO BID [facility] Last Admin: 02/21/17 22:21 Dose: 500 mg Tamsulosin HCl (Flomax -) 0.4 mg PO DAILY@0830 [facility] Last Admin: 02/21/17 09:20 Dose: 0.4 mg - Objective Vital Signs: Vital Signs Temperature 97.4 F L 02/21/17 17:00 Pulse Rate 59 L 02/21/17 17:00 Respiratory Rate 20 02/21/17 17:00 Blood Pressure 129/58 02/21/17 17:00 O2 Sat by Pulse Oximetry (%) 98 02/21/17 07:05 Constitutional: Yes: Well Nourished HENT: Yes: WNL Neck: Yes: Supple Cardiovascular: Yes: WNL, Regular Rate and Rhythm Respiratory: Yes: WNL, Regular, CTA Bilaterally Gastrointestinal: Yes: WNL, Normal Bowel Sounds, Soft Edema: LLE: Trace, RLE: Trace Labs: CBC, BMP 02/20/17 05:35 02/21/17 05:40 INR, PTT INR 1.86 (0.82-1.09) H 02/18/17 09:03 Problem List - Problems (1) Dyspnea Assessment/Plan: Agree w/ possibilty of multifactorial etiology CHF vs pneumonia vs symptomatic anemia Will change to PO levaquin in am Code(s): R06.00 - DYSPNEA, UNSPECIFIED (2) Anemia Assessment/Plan: Symptomatic anemia Monitor H/H ?Due to chronic dz/B12 def Eliquis on hold Restart ASA Code(s): D64.9 - ANEMIA, UNSPECIFIED (3) Pneumonia Assessment/Plan: ? RLL infiltrate on cxr WBC is slightly elevated Change to po levaquin in am Code(s): J18.9 - PNEUMONIA, UNSPECIFIED ORGANISM Qualifiers: Pneumonia type: due to unspecified organism Laterality: right Lung location: lower lobe of lung Qualified Code(s): J18.1 - Lobar pneumonia, unspecified organism (4) PAF (paroxysmal atrial fibrillation) Assessment/Plan: Heart rate controlled Cont toprol Eliquis was dc'ed due to anemia Code(s): I48.0 - PAROXYSMAL ATRIAL FIBRILLATION (5) Acute on chronic diastolic (congestive) heart failure Assessment/Plan: Lasix on hold due to worsening renal dz Code(s): I50.33 - ACUTE ON CHRONIC DIASTOLIC (CONGESTIVE) HEART FAILURE (6) Chronic kidney disease Code(s): N18.9 - CHRONIC KIDNEY DISEASE, UNSPECIFIED Qualifiers: Chronic kidney disease stage: unspecified stage Qualified Code(s): N18.9 - Chronic kidney disease, unspecified (7) CAD (coronary artery disease) Code(s): I25.10 - ATHSCL HEART DISEASE OF [place] CORONARY ARTERY W/O ANG PCTRS Qualifiers: Coronary Disease-Associated Artery/Lesion type: unspecified vessel or lesion type [place] vs. transplanted heart: unspecified whether [place] or transplanted heart Associated angina: without angina Qualified Code(s ): I25.10 - Atherosclerotic heart disease of [place] coronary artery without angina pectoris (8) Hypertension Code(s): I10 - ESSENTIAL (PRIMARY) HYPERTENSION Qualifiers: Hypertension type: essential hypertension Qualified Code(s): I10 - Essential (primary) hypertension (9) HLD (hyperlipidemia) Code(s): E78.5 - HYPERLIPIDEMIA, UNSPECIFIED Qualifiers: Hyperlipidemia type: mixed hyperlipidemia Qualified Code(s): E78.2 - Mixed hyperlipidemia (10) Diabetes mellitus type II, controlled Code(s): E11.9 - TYPE 2 DIABETES MELLITUS WITHOUT COMPLICATIONS (11) BPH (benign prostatic hyperplasia) Code(s): N40.0 - BENIGN PROSTATIC HYPERPLASIA WITHOUT LOWER URINRY TRACT SYMP (12) Gout attack Code(s): M10.9 - GOUT, UNSPECIFIED Qualifiers: Gout site: foot Gout etiology: idiopathic (13) Osteoarthritis Code(s): M19.90 - UNSPECIFIED OSTEOARTHRITIS, UNSPECIFIED SITE (14) Stented coronary artery Code(s): Z95.5 - PRESENCE OF CORONARY ANGIOPLASTY IMPLANT AND GRAFT
[2017-02-22 00:06] LABS: PARIETAL CELL AB 0.7 Units (0.0-20.0)
[2017-02-22] MEDS: GLIMEPIRIDE 4 MG TABLET (FP) PO SCH (06:04)
[2017-02-22] MEDS: LEVOFLOXACIN 250 MG TABLET (FP) PO SCH (06:04)
[2017-02-22 07:48] LABS: BASOPHIL 0.2 % (0-2.0); EOSINOPHIL 2.2 % (0-4.5); MCH 26.7 pg (25.7-33.7); MCHC 31.1 g/dl (32.0-35.9); MEAN CELL VOLUME 85.8 fl (80-96); MEAN PLT VOLUME 7.7 fl (7.5-11.1); NEUTROPHILS 66.3 % (42.8-82.8); PLATELET COUNT 251 K/MM3 (134-434); RDW 17.5 % (11.9-15.9); WHITE BLOOD COUNT 9.7 K/mm3 (4.0-10.0)
[2017-02-22] MEDS: TAMSULOSIN HCL 0.4 MG CAP.ER.24H (FP) PO SCH (08:30)
[2017-02-22 08:32] LABS: CALCIUM 8.5 mg/dL (8.5-10.1); COCKROFT - GAULT 28.52; CREATININE 2.9 mg/dL (0.7-1.3)
--- NOTE | 2017-02-22 09:18 | PN ---
Progress Note, Physician History of Present Illness: seen and examined today in nad. no overnight events. no new complaints. states he is feeling well and wants to go home. - Current Medication List Current Medications: Active Medications Amlodipine Besylate (Norvasc -) 2.5 mg PO DAILY [facility] Last Admin: 02/21/17 09:22 Dose: 2.5 mg Aspirin (Ecotrin -) 81 mg PO DAILY [facility] Last Admin: 02/21/17 09:20 Dose: 81 mg Atorvastatin Calcium (Lipitor -) 20 mg PO HS [facility] Last Admin: 02/21/17 22:21 Dose: 20 mg Febuxostat (Uloric -) 40 mg PO DAILY [facility] Last Admin: 02/21/17 09:19 Dose: 40 mg Furosemide (Lasix -) 40 mg PO DAILY [facility] Glimepiride (Amaryl -) 4 mg PO DAILY@0700 [facility] Last Admin: 02/22/17 06:04 Dose: 4 mg Levofloxacin (Levaquin -) 250 mg PO DAILY@0600 [facility] Last Admin: 02/22/17 06:04 Dose: 250 mg Meclizine HCl (Antivert -) 25 mg PO TID PRN PRN Reason: VERTIGO Metoprolol Succinate (Toprol Xl -) 12.5 mg PO DAILY [facility] Last Admin: 02/21/17 09:20 Dose: 12.5 mg Non-Formulary Medication (Linaclotide [Linzess]) 145 mcg PO DAILY [facility] Non-Formulary Medication (Linagliptin [Tradjenta]) 5 mg PO DAILY [facility] Polyethylene Glycol (Miralax (For Daily Use) -) 17 gm PO DAILY [facility] Last Admin: 02/21/17 09:21 Dose: 17 grams Ranitidine HCl (Zantac -) 150 mg PO BID [facility] Last Admin: 02/21/17 22:21 Dose: 150 mg Ranolazine (Ranexa -) 500 mg PO BID [facility] Last Admin: 02/21/17 22:21 Dose: 500 mg Tamsulosin HCl (Flomax -) 0.4 mg PO DAILY@0830 [facility] Last Admin: 02/22/17 08:30 Dose: 0.4 mg - Objective Vital Signs: Vital Signs Temperature 97.6 F 02/22/17 06:00 Pulse Rate 65 02/22/17 06:00 Respiratory Rate 20 02/22/17 06:00 Blood Pressure 112/58 04/27/17 06:00 O2 Sat by Pulse Oximetry (%) 98 02/21/17 21:00 Constitutional: Yes: No Distress, Calm, Obese Eyes: Yes: WNL, Conjunctiva Clear, EOM Intact, PERRL HENT: Yes: WNL, Atraumatic, Normocephalic Neck: Yes: WNL, Supple, Trachea Midline Cardiovascular: Yes: Regular Rate and Rhythm, S1, S2. No: Bradycardia, Tachycardia, Pulse Irregular, Bruit, JVD, Gallop, Murmur, Rub, S3, S4, Varicosities Respiratory: Yes: WNL, Regular, CTA Bilaterally. No: Rales, Rhonchi, Wheezes Gastrointestinal: Yes: WNL, Normal Bowel Sounds, Soft. No: Distention, Tenderness Musculoskeletal: Yes: WNL Extremities: Yes: WNL Edema: Yes Edema: LLE: 1+, RLE: 1+ Peripheral Pulses WNL: Yes Peripheral Pulses: Left Doralis Pedis: 2+, Right Dorsalis Pedis: 2+ Neurological: Yes: Alert, Oriented Psychiatric: Yes: Alert, Oriented Labs: CBC, BMP 02/22/17 05:35 02/22/17 05:35 INR, PTT INR 1.86 (0.82-1.09) H 02/18/17 09:03 - ....Imaging Chest X-ray: Report Reviewed, Image Reviewed EKG: Report Reviewed, Image Reviewed Other: Report Reviewed, Image Reviewed (tele-AV paced, PVCs) Assessment/Plan 80 year old man with a history of CAD with prior PCI, h/o ischemic cardiomyopathy but normal LV function on most recent evaluations, Pafib, CHB s/ p PPM, HTN, DMII, HLD, CKD, NSVT, chronic anemia and GI bleed requiring transfusion on prior admissions, admitted with sob and mild chest discomfort. SOB-acute on chronic diastolic CHF vs PNA vs symptomatic anemia -overall euvolemic, lungs are clear, mild LE edema -resume home po Lasix, will help with edema and mild hyperkalemia -ok to dc tele -anemia work up done and being treated -ok for discharge from a cardiac standpoint Afib-paroxysmal, with recurrent anemia, h/o CHB s/p PPM -holding eliquis, to be re-evaluated as outpatient -cont ASA 81mg daily alone as long as H/H stable, anemia appears due to b12 deficiency not bleeding -cont Toprol CAD-h/o stents -cont ASA 81mg daily for now -cont toprol, ranexa, lipitor
[2017-02-22] MEDS: RANOLAZINE E.R. 500 MG TABLET (FP) PO SCH ×2 (09:29→21:37)
[2017-02-22] MEDS: RANITIDINE HCL 150 MG TABLET (FP) PO SCH ×2 (09:29→21:37)
[2017-02-22] MEDS: amLODIPine BESYLATE 2.5 MG TABLET (FP) PO SCH (09:30)
[2017-02-22] MEDS: METOPROLOL SUCCINATE 25 MG TAB.SR.24H (FP) PO SCH (09:30)
[2017-02-22] MEDS: ASPIRIN COATED 81 MG TABLET.EC PO SCH (09:30)
[2017-02-22] MEDS: SACUBITRIL/VALSARTAN 24 MG-26 MG TABLET PO SCH ×2 (09:31→21:37)
[2017-02-22] MEDS: FEBUXOSTAT 40 MG TAB PO SCH (09:31)
[2017-02-22] MEDS: FUROSEMIDE 40 MG TABLET (FP) PO SCH (09:32)
[2017-02-22] MEDS: POLYETHYLENE GLYCOL 3350 119 GM BTL PO SCH (09:32)
--- NOTE | 2017-02-22 14:20 | PN ---
Progress Note, Physician History of Present Illness: Pt seen and examined at bedside. He is wake and alert. He complains of lower extremity edema. - Current Medication List Current Medications: Active Medications Amlodipine Besylate (Norvasc -) 2.5 mg PO DAILY [facility] Last Admin: 02/22/17 09:30 Dose: 2.5 mg Aspirin (Ecotrin -) 81 mg PO DAILY [facility] Last Admin: 02/22/17 09:30 Dose: 81 mg Atorvastatin Calcium (Lipitor -) 20 mg PO HS [facility] Last Admin: 02/21/17 22:21 Dose: 20 mg Febuxostat (Uloric -) 40 mg PO DAILY [facility] Last Admin: 02/22/17 09:31 Dose: 40 mg Furosemide (Lasix -) 40 mg PO DAILY [facility] Last Admin: 02/22/17 09:32 Dose: 40 mg Glimepiride (Amaryl -) 4 mg PO DAILY@0700 [facility] Last Admin: 02/22/17 06:04 Dose: 4 mg Levofloxacin (Levaquin -) 250 mg PO DAILY@0600 [facility] Last Admin: 02/22/17 06:04 Dose: 250 mg Meclizine HCl (Antivert -) 25 mg PO TID PRN PRN Reason: VERTIGO Metoprolol Succinate (Toprol Xl -) 12.5 mg PO DAILY [facility] Last Admin: 02/22/17 09:30 Dose: 12.5 mg Non-Formulary Medication (Linaclotide [Linzess]) 145 mcg PO DAILY [facility] Non-Formulary Medication (Linagliptin [Tradjenta]) 5 mg PO DAILY [facility] Polyethylene Glycol (Miralax (For Daily Use) -) 17 gm PO DAILY [facility] Last Admin: 02/22/17 09:32 Dose: Not Given Ranitidine HCl (Zantac -) 150 mg PO BID [facility] Last Admin: 02/22/17 09:29 Dose: 150 mg Ranolazine (Ranexa -) 500 mg PO BID [facility] Last Admin: 02/22/17 09:29 Dose: 500 mg Tamsulosin HCl (Flomax -) 0.4 mg PO DAILY@0830 [facility] Last Admin: 02/22/17 08:30 Dose: 0.4 mg - Objective Vital Signs: Vital Signs Temperature 97.2 F L 02/22/17 13:49 Pulse Rate 67 02/22/17 13:49 Respiratory Rate 18 02/22/17 13:49 Blood Pressure 109/54 02/22/17 13:49 O2 Sat by Pulse Oximetry (%) 98 02/22/17 09:00 Constitutional: Yes: Calm Eyes: Yes: Conjunctiva Clear HENT: Yes: Atraumatic Neck: Yes: Supple Cardiovascular: Yes: S1, S2 Respiratory: Yes: CTA Bilaterally Gastrointestinal: Yes: Soft Genitourinary: Yes: WNL Musculoskeletal: Yes: WNL Edema: Yes Edema: LLE: 2+, RLE: 2+ Neurological: Yes: Oriented Psychiatric: Yes: Oriented Labs: CBC, BMP 02/22/17 05:35 02/22/17 05:35 INR, PTT INR 1.86 (0.82-1.09) H 02/18/17 09:03 Problem List - Problems (1) Acute on chronic diastolic (congestive) heart failure Code(s): I50.33 - ACUTE ON CHRONIC DIASTOLIC (CONGESTIVE) HEART FAILURE (2) CAD (coronary artery disease) Code(s): I25.10 - ATHSCL HEART DISEASE OF [place] CORONARY ARTERY W/O ANG PCTRS Qualifiers: Coronary Disease-Associated Artery/Lesion type: unspecified vessel or lesion type [place] vs. transplanted heart: unspecified whether [place] or transplanted heart Associated angina: without angina Qualified Code(s ): I25.10 - Atherosclerotic heart disease of [place] coronary artery without angina pectoris (3) Chronic kidney disease Code(s): N18.9 - CHRONIC KIDNEY DISEASE, UNSPECIFIED Qualifiers: Chronic kidney disease stage: unspecified stage Qualified Code(s): N18.9 - Chronic kidney disease, unspecified (4) DM (diabetes mellitus), type 2 with renal complications Code(s): E11.29 - TYPE 2 DIABETES MELLITUS W OTH DIABETIC KIDNEY COMPLICATION Qualifiers: Diabetes mellitus complication detail: with chronic kidney disease 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 mellitus 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 termite insulin use: with shelter use Chronic kidney disease stage: unspecified stage Qualified Code(s): E11.22 - Type 2 diabetes mellitus with diabetic chronic kidney disease; N18.1 - Chronic kidney disease, stage 1; Z79.4 - halfway (current) use of insulin (5) Hypertension Code(s): I10 - ESSENTIAL (PRIMARY) HYPERTENSION Qualifiers: Hypertension type: essential hypertension Qualified Code(s): I10 - Essential (primary) hypertension Assessment/Plan Current Medications Generic Name Dose Route Start Last Admin Trade Name Quintonq PRN Reason Stop Dose Admin Amlodipine Besylate 2.5 mg 02/19/17 10:00 02/22/17 09:30 Norvasc - PO 2.5 mg DAILY [facility] Administration Aspirin 81 mg 02/19/17 02:30 02/22/17 09:30 Ecotrin - PO 81 mg DAILY [facility] Administration Atorvastatin Calcium 20 mg 02/19/17 22:00 02/21/17 22:21 Lipitor - PO 20 mg HS [facility] Administration Febuxostat 40 mg 02/19/17 10:00 02/22/17 09:31 Uloric - PO 40 mg DAILY [facility] Administration Furosemide 40 mg 02/22/17 10:00 02/22/17 09:32 Lasix - PO 40 mg DAILY [facility] Administration Glimepiride 4 mg 02/19/17 07:00 02/22/17 06:04 Amaryl - PO 4 mg DAILY@0700 [facility] Administration Levofloxacin 250 mg 02/22/17 06:00 02/22/17 06:04 Levaquin - PO 250 mg DAILY@0600 [facility] Administration Meclizine HCl 25 mg 02/19/17 02:25 Antivert - PO TID PRN VERTIGO Metoprolol Succinate 12.5 mg 02/19/17 10:00 02/22/17 09:30 Toprol Xl - PO 12.5 mg DAILY [facility] Administration Non-Formulary Medication 145 mcg 02/19/17 10:00 Linaclotide [Linzess] PO DAILY [facility] Non-Formulary Medication 5 mg 02/19/17 10:00 Linagliptin [Tradjenta] PO DAILY [facility] Polyethylene Glycol 17 gm 02/20/17 10:00 02/22/17 09:32 Miralax (For Daily Use) - PO Not Given DAILY [facility] Ranitidine HCl 150 mg 02/19/17 10:00 02/22/17 09:29 Zantac - PO 150 mg BID [facility] Administration Ranolazine 500 mg 02/19/17 10:00 02/22/17 09:29 Ranexa - PO 500 mg BID [facility] Administration Tamsulosin HCl 0.4 mg 02/19/17 08:30 02/22/17 08:30 Flomax - PO 0.4 mg DAILY@0830 [facility] Administration IMPRESSION 1. CKD 2. CHF 3. s/p pacemaker placement 4. anemia 5. dm 6. htn 7. hyperkalemia Plan - case discussed with cardio, restart lasix - low potassium diet - repeat labs in am - will need outpt follow up and will need ckd workup - anemia workup Dr Rosario
--- NOTE | 2017-02-22 20:22 | PN ---
Progress Note, Physician History of Present Illness: No new complaints - Current Medication List Current Medications: Active Medications Amlodipine Besylate (Norvasc -) 2.5 mg PO DAILY [facility] Last Admin: 02/22/17 09:30 Dose: 2.5 mg Aspirin (Ecotrin -) 81 mg PO DAILY [facility] Last Admin: 02/22/17 09:30 Dose: 81 mg Atorvastatin Calcium (Lipitor -) 20 mg PO HS [facility] Last Admin: 02/21/17 22:21 Dose: 20 mg Febuxostat (Uloric -) 40 mg PO DAILY [facility] Last Admin: 02/22/17 09:31 Dose: 40 mg Furosemide (Lasix -) 40 mg PO DAILY [facility] Last Admin: 02/22/17 09:32 Dose: 40 mg Glimepiride (Amaryl -) 4 mg PO DAILY@0700 [facility] Last Admin: 02/22/17 06:04 Dose: 4 mg Levofloxacin (Levaquin -) 250 mg PO DAILY@0600 [facility] Last Admin: 02/22/17 06:04 Dose: 250 mg Meclizine HCl (Antivert -) 25 mg PO TID PRN PRN Reason: VERTIGO Metoprolol Succinate (Toprol Xl -) 12.5 mg PO DAILY [facility] Last Admin: 02/22/17 09:30 Dose: 12.5 mg Non-Formulary Medication (Linaclotide [Linzess]) 145 mcg PO DAILY [facility] Non-Formulary Medication (Linagliptin [Tradjenta]) 5 mg PO DAILY [facility] Polyethylene Glycol (Miralax (For Daily Use) -) 17 gm PO DAILY [facility] Last Admin: 02/22/17 09:32 Dose: Not Given Ranitidine HCl (Zantac -) 150 mg PO BID [facility] Last Admin: 02/22/17 09:29 Dose: 150 mg Ranolazine (Ranexa -) 500 mg PO BID [facility] Last Admin: 02/22/17 09:29 Dose: 500 mg Tamsulosin HCl (Flomax -) 0.4 mg PO DAILY@0830 [facility] Last Admin: 02/22/17 08:30 Dose: 0.4 mg - Objective Vital Signs: Vital Signs Temperature 98.3 F 02/22/17 16:35 Pulse Rate 65 02/22/17 16:35 Respiratory Rate 20 02/22/17 16:35 Blood Pressure 126/63 02/22/17 16:35 O2 Sat by Pulse Oximetry (%) 98 02/22/17 09:00 Cardiovascular: Yes: WNL, Regular Rate and Rhythm Respiratory: Yes: WNL, Regular, CTA Bilaterally Gastrointestinal: Yes: WNL, Normal Bowel Sounds, Soft Labs: CBC, BMP 02/22/17 05:35 02/22/17 05:35 INR, PTT INR 1.86 (0.82-1.09) H 02/18/17 09:03 Problem List - Problems (1) Dyspnea Code(s): R06.00 - DYSPNEA, UNSPECIFIED (2) Anemia Code(s): D64.9 - ANEMIA, UNSPECIFIED (3) Pneumonia Code(s): J18.9 - PNEUMONIA, UNSPECIFIED ORGANISM Qualifiers: Pneumonia type: due to unspecified organism Laterality: right Lung location: lower lobe of lung Qualified Code(s): J18.1 - Lobar pneumonia, unspecified organism (4) PAF (paroxysmal atrial fibrillation) Code(s): I48.0 - PAROXYSMAL ATRIAL FIBRILLATION (5) Acute on chronic diastolic (congestive) heart failure Code(s): I50.33 - ACUTE ON CHRONIC DIASTOLIC (CONGESTIVE) HEART FAILURE (6) Chronic kidney disease Code(s): N18.9 - CHRONIC KIDNEY DISEASE, UNSPECIFIED Qualifiers: Chronic kidney disease stage: unspecified stage Qualified Code(s): N18.9 - Chronic kidney disease, unspecified (7) CAD (coronary artery disease) Code(s): I25.10 - ATHSCL HEART DISEASE OF [place] CORONARY ARTERY W/O ANG PCTRS Qualifiers: Coronary Disease-Associated Artery/Lesion type: unspecified vessel or lesion type [place] vs. transplanted heart: unspecified whether [place] or transplanted heart Associated angina: without angina Qualified Code(s ): I25.10 - Atherosclerotic heart disease of [place] coronary artery without angina pectoris (8) Hypertension Code(s): I10 - ESSENTIAL (PRIMARY) HYPERTENSION Qualifiers: Hypertension type: essential hypertension Qualified Code(s): I10 - Essential (primary) hypertension (9) HLD (hyperlipidemia) Code(s): E78.5 - HYPERLIPIDEMIA, UNSPECIFIED Qualifiers: Hyperlipidemia type: mixed hyperlipidemia Qualified Code(s): E78.2 - Mixed hyperlipidemia (10) Diabetes mellitus type II, controlled Code(s): E11.9 - TYPE 2 DIABETES MELLITUS WITHOUT COMPLICATIONS (11) BPH (benign prostatic hyperplasia) Code(s): N40.0 - BENIGN PROSTATIC HYPERPLASIA WITHOUT LOWER URINRY TRACT SYMP (12) Gout attack Code(s): M10.9 - GOUT, UNSPECIFIED Qualifiers: Gout site: foot Gout etiology: idiopathic (13) Osteoarthritis Code(s): M19.90 - UNSPECIFIED OSTEOARTHRITIS, UNSPECIFIED SITE (14) Stented coronary artery Code(s): Z95.5 - PRESENCE OF CORONARY ANGIOPLASTY IMPLANT AND GRAFT
[2017-02-22] MEDS: ATORVASTATIN CA 20 MG TABLET (FP) PO SCH (21:37)
[2017-02-23] MEDS: LEVOFLOXACIN 250 MG TABLET (FP) PO SCH (06:31)
[2017-02-23] MEDS: GLIMEPIRIDE 4 MG TABLET (FP) PO SCH (06:34)
[2017-02-23] MEDS: TAMSULOSIN HCL 0.4 MG CAP.ER.24H (FP) PO SCH (08:44)
--- NOTE | 2017-02-23 09:13 | PN ---
Progress Note, Physician History of Present Illness: seen and examined today in nad. no overnight events. no new complaints. requests to go home. - Current Medication List Current Medications: Active Medications Amlodipine Besylate (Norvasc -) 2.5 mg PO DAILY [facility] Last Admin: 02/22/17 09:30 Dose: 2.5 mg Aspirin (Ecotrin -) 81 mg PO DAILY [facility] Last Admin: 02/22/17 09:30 Dose: 81 mg Atorvastatin Calcium (Lipitor -) 20 mg PO HS [facility] Last Admin: 02/22/17 21:37 Dose: 20 mg Febuxostat (Uloric -) 40 mg PO DAILY [facility] Last Admin: 02/22/17 09:31 Dose: 40 mg Furosemide (Lasix -) 40 mg PO DAILY [facility] Last Admin: 02/22/17 09:32 Dose: 40 mg Glimepiride (Amaryl -) 4 mg PO DAILY@0700 [facility] Last Admin: 02/23/17 06:34 Dose: Not Given Levofloxacin (Levaquin -) 250 mg PO DAILY@0600 [facility] Last Admin: 02/23/17 06:31 Dose: 250 mg Meclizine HCl (Antivert -) 25 mg PO TID PRN PRN Reason: VERTIGO Metoprolol Succinate (Toprol Xl -) 12.5 mg PO DAILY [facility] Last Admin: 02/22/17 09:30 Dose: 12.5 mg Non-Formulary Medication (Linaclotide [Linzess]) 145 mcg PO DAILY [facility] Non-Formulary Medication (Linagliptin [Tradjenta]) 5 mg PO DAILY [facility] Polyethylene Glycol (Miralax (For Daily Use) -) 17 gm PO DAILY [facility] Last Admin: 02/22/17 09:32 Dose: Not Given Ranitidine HCl (Zantac -) 150 mg PO BID [facility] Last Admin: 02/22/17 21:37 Dose: 150 mg Ranolazine (Ranexa -) 500 mg PO BID [facility] Last Admin: 02/22/17 21:37 Dose: 500 mg Tamsulosin HCl (Flomax -) 0.4 mg PO DAILY@0830 [facility] Last Admin: 02/23/17 08:44 Dose: 0.4 mg - Objective Vital Signs: Vital Signs Temperature 98.6 F 02/23/17 08:45 Pulse Rate 72 02/23/17 08:45 Respiratory Rate 18 02/23/17 08:45 Blood Pressure 110/62 02/23/17 08:45 O2 Sat by Pulse Oximetry (%) 98 02/22/17 21:00 Constitutional: Yes: No Distress, Calm, Obese Eyes: Yes: WNL, Conjunctiva Clear, EOM Intact, PERRL HENT: Yes: WNL, Atraumatic, Normocephalic Neck: Yes: WNL, Supple, Trachea Midline Cardiovascular: Yes: Regular Rate and Rhythm, S1, S2. No: Bradycardia, Tachycardia, Pulse Irregular, Bruit, JVD, Gallop, Murmur, Rub, S3, S4, Varicosities Respiratory: Yes: Regular, CTA Bilaterally. No: Rales, Rhonchi, Wheezes Gastrointestinal: Yes: Normal Bowel Sounds, Soft. No: Distention, Tenderness Musculoskeletal: Yes: WNL Extremities: Yes: WNL Edema: Yes Edema: LLE: 1+, RLE: 1+ Peripheral Pulses WNL: Yes Peripheral Pulses: Left Doralis Pedis: 2+, Right Dorsalis Pedis: 2+ Integumentary: Yes: WNL Neurological: Yes: Alert, Oriented, Cran Nerves II-XII Intact Psychiatric: Yes: Alert, Oriented Labs: CBC, BMP 02/22/17 05:35 02/22/17 05:35 INR, PTT INR 1.86 (0.82-1.09) H 02/18/17 09:03 - ....Imaging Chest X-ray: Report Reviewed, Image Reviewed EKG: Report Reviewed, Image Reviewed Other: Report Reviewed, Image Reviewed Assessment/Plan 80 year old man with a history of CAD with prior PCI, h/o ischemic cardiomyopathy but normal LV function on most recent evaluations, Pafib, CHB s/ p PPM, HTN, DMII, HLD, CKD, NSVT, chronic anemia and GI bleed requiring transfusion on prior admissions, admitted with sob and mild chest discomfort. SOB-acute on chronic diastolic CHF vs PNA vs symptomatic anemia -overall euvolemic, lungs are clear, mild LE edema which is chronic -cont po Lasix, will help with edema and mild hyperkalemia -f/up bmp this am to evaluate K+, bun/creat -anemia work up done and being treated -ok for discharge from a cardiac standpoint Afib-paroxysmal, with recurrent anemia, h/o CHB s/p PPM -holding eliquis, to be re-evaluated as outpatient -cont ASA 81mg daily alone as long as H/H stable, anemia appears due to b12 deficiency not bleeding -cont Toprol CAD-h/o stents -cont ASA 81mg daily for now -cont toprol, ranexa, lipitor
[2017-02-23] MEDS ORDERED: PT OWN MED DRAWER 7, Y5N ONE (09:15)
[2017-02-23] MEDS: ASPIRIN COATED 81 MG TABLET.EC PO SCH (09:18)
[2017-02-23] MEDS: METOPROLOL SUCCINATE 25 MG TAB.SR.24H (FP) PO SCH (09:18)
[2017-02-23] MEDS: RANOLAZINE E.R. 500 MG TABLET (FP) PO SCH (09:18)
[2017-02-23] MEDS: RANITIDINE HCL 150 MG TABLET (FP) PO SCH (09:18)
[2017-02-23] MEDS: FUROSEMIDE 40 MG TABLET (FP) PO SCH (09:18)
[2017-02-23] MEDS: FEBUXOSTAT 40 MG TAB PO SCH (09:19)
[2017-02-23] MEDS: amLODIPine BESYLATE 2.5 MG TABLET (FP) PO SCH (09:19)
[2017-02-23] MEDS: POLYETHYLENE GLYCOL 3350 119 GM BTL PO SCH (09:20)
[2017-02-23] MEDS: SACUBITRIL/VALSARTAN 24 MG-26 MG TABLET PO SCH (09:20)
[2017-02-23 11:51] LABS: CALCIUM 8.9 mg/dL (8.5-10.1); COCKROFT - GAULT 27.3; MAGNESIUM 2.6 mg/dL (1.8-2.4)
[2017-02-23 14:08] VITALS: BP 112/51; PULSE 82; TEMP 98.9
== END 2017-02-23 14:46 | disposition home or self-care (01) | DRG 291 ==
LOC: JER 08:23 → JERBED 11:49 → J4W 02-19 02:35 → J8W 02-22 12:55
PROVIDERS: ADMIT Internal Medicine; ATTEND Internal Medicine
PROC: 30233N1 Transfusion of Nonautologous Red Blood Cells into Peripheral Vein, Percutaneous Approach (ICD-10-PCS; principal; 2017-02-19)
DX: I13.0 Hypertensive heart and chronic kidney disease with heart failure and stage 1 through stage 4 chronic kidney disease, or unspecified chronic kidney disease (principal); I50.33 Acute on chronic diastolic (congestive) heart failure; J18.9 Pneumonia, unspecified organism; E11.22 Type 2 diabetes mellitus with diabetic chronic kidney disease; N18.9 Chronic kidney disease, unspecified; I25.5 Ischemic cardiomyopathy; I25.10 Atherosclerotic heart disease of native coronary artery without angina pectoris; D63.1 Anemia in chronic kidney disease; E78.00 Pure hypercholesterolemia, unspecified; K59.09 Other constipation; M19.90 Unspecified osteoarthritis, unspecified site; M10.9 Gout, unspecified; I48.0 Paroxysmal atrial fibrillation; R00.0 Tachycardia, unspecified; K21.9 Gastro-esophageal reflux disease without esophagitis; N40.0 Benign prostatic hyperplasia without lower urinary tract symptoms; I73.9 Peripheral vascular disease, unspecified; E53.8 Deficiency of other specified B group vitamins; Z95.0 Presence of cardiac pacemaker; Z95.5 Presence of coronary angioplasty implant and graft; Z87.891 Personal history of nicotine dependence
CPT/HCPCS: 36415; 36430; 71010-TC; 74020-TC; 76700-TC; 76775-TC; 76856-TC; 80048; 80053; 81003; 81015; 82550; 82570; 82607; 83516; 83735; 83880; 84156; 84484; 85025; 85610; 86850; 86900; 86901; 86922; 87040; 93005; 93010; 93306-TC; 99285-25; P9038; P9058

== ENCOUNTER 2017-04-09 08:17 | Inpatient (IN) | payer MEDICARE, OTHER ==
--- NOTE | 2017-04-09 08:39 | PDOC ---
History of Present Illness - General Chief Complaint: Chest Pain Stated Complaint: SOB, CHEST PAIN Time Seen by Provider: 04/09/17 08:32 History Source: Patient, Family Exam Limitations: Language Barrier - History of Present Illness Initial Comments: 04/09/17 08:40 Pt is a 81 y/o male who is a poor historian w/ PMH significant for HTN, HLD, CAD (s/p stents), CHB s/p pacemaker, diabetes, CKD, gout, OA, GERD, anemia of chronic disease (Dr Malave, transfused 11/14 fir Hgb 6.8) and GI bleed, last here 02/18/17 for PNA and CHF exacerbation, who presents due to chest pain. Pain started on sun, is midsternal, burning, nonradiating, constant, w/o alleviating or aggravating factors. It is associated with worsening resting sob, orthopnea, increased edema of LE, abdomen and generalized edema. There is also decreased appetite. Patient reports occasional black stools but denies hematichezia. He has been compliant with his meds. He denies dysuria, hematuria, oliguria, h/a, f /c, n/v, abd pain, flank pain, palpitations, LOC, cough. Cardio: Dr Brunner PCP: Dr Don Gallardo 04/09/17 09:24 04/09/17 09:41 Past History - Travel Traveled outside of the country in the last 30 days: No Close contact w/someone who was outside of country & ill: No - Past Medical History Allergies/Adverse Reactions: Allergies Allergy/AdvReac Type Severity Reaction Status Date / Time No Known Drug Allergies Allergy Verified 04/09/17 08:19 Home Medications: Ambulatory Orders Aspirin [Aspirin EC] 81 mg PO DAILY 12/01/15 Atorvastatin Ca [Lipitor] 20 mg PO HS 12/01/15 Glimepiride 4 mg PO DAILY 12/01/15 Ranitidine [Zantac -] 150 mg PO BID 12/01/15 Ranolazine [Ranexa] 500 mg PO BID 12/01/15 Sacubitril/Valsartan [Entresto 24 mg-26 mg Tablet] 1 each PO BID 12/01/15 Tamsulosin HCl 0.4 mg PO DAILY 12/01/15 Furosemide [Lasix -] 40 mg PO DAILY #30 tablet 12/07/15 Amlodipine Besylate 2.5 mg PO DAILY 11/04/16 Apixaban [Eliquis] 2.5 mg PO BID 11/04/16 Linaclotide [Linzess] 145 mcg PO DAILY 11/04/16 Linagliptin [Tradjenta] 5 mg PO DAILY 11/04/16 Meclizine HCl [Antivert -] 25 mg PO TID PRN 11/04/16 Febuxostat [Uloric -] 40 mg PO DAILY 02/18/17 Metoprolol Succinate [Toprol Xl] 12.5 mg PO DAILY 02/18/17 Aspirin [[place] Aspirin] 81 mg PO DAILY #30 tablet. 02/23/17 Furosemide [Lasix -] 40 mg PO DAILY tablet 02/23/17 Anemia: No Asthma: No Cancer: No Cardiac Disorders: Yes (CAD) CVA: No COPD: No CHF: No Dementia: No Diabetes: Yes GI Disorders: No Disorders: Yes (?) HTN: Yes Hypercholesterolemia: Yes Liver Disease: No Seizures: No Thyroid Disease: No - Surgical History Cardiac Surgery: Yes (pacemaker, STENTS) Cholecystectomy: Yes Orthopedic Surgery: Yes - Psycho/Social/Smoking Cessation Hx Anxiety: No Suicidal Ideation: No Smoking Status: No Smoking History: Former smoker Have you smoked in the past 12 months: No Number of Cigarettes Smoked Daily: 0 If you are a former smoker, when did you quit?: "long time ago" Information on smoking cessation initiated: No Hx Alcohol Use: No Drug/Substance Use Hx: No Substance Use Type: None Hx Substance Use Treatment: No Review of Systems - Review of Systems Able to Perform ROS?: Yes Is the patient limited [place] proficient: Yes Constitutional: No: Chills, Fever HEENTM: No: Nose Congestion, Throat Pain, Difficulty Swallowing Respiratory: Yes: Orthopnea, Shortness of Breath, SOB with Exertion, SOB at Rest. No: Cough, Wheezing, Hemoptysis Cardiac (ROS): Yes: Chest Pain, Edema. No: Irregular Heart Rate, Lightheadedness, Palpitations, Syncope ABD/GI: Yes: Abdominal Distended. No: Abd. Pain w/ defecation, Blood Streaked Bowels, Constipated, Diarrhea, Difficulty Swallowing, Nausea, Rectal Bleeding, Vomiting : No: Dysuria, Flank Pain Musculoskeletal: No: Back Pain Integumentary: No: Pruritus, Rash, Sweating Neurological: No: Headache, Numbness, Paresthesia, Weakness Psychiatric: No: Anxiety, Depression Endocrine: No: Increased Thirst, Unexplained Weight Loss Hematologic/Lymphatic: No: Easy Bleeding, Easy Bruising All Other Systems: Reviewed and Negative *Physical Exam - Vital Signs Last Vital Signs Temp Pulse Resp BP Pulse Ox 98.3 F 73 18 138/59 100 04/09/17 08:20 04/09/17 08:20 04/09/17 08:20 04/09/17 08:20 04/09/17 08:20 - Physical Exam Comments: 04/09/17 09:30 GENERAL: mild-mod generalized nonpitting edema HEENT: PERRLA EOMI sclera anicteric, conjunctiva clear. CV: RRR s1s2 grade 2 systolic murmur, + JVD, 2+ pitting edema in LE. PULM:mild bibasilar crackles GI:distended +fluid wave, soft, mildly tender epigastric region, no mass, normoactive bowel sounds NEURO: CN grossly intact SKIN: no apparent lesions on extremities Heart Score/ECG Review #1 ECG reviewed & interpreted by me at: 09:15 (paced rythm 81, l axis, l ant facicular block, no st changes, no change from prior ekg other than PVC in the current ekg. ) ED Treatment Course - LABORATORY CBC & Chemistry Diagram: 04/09/17 09:22 04/09/17 09:22 Medical Decision Making - Medical Decision Making 04/09/17 09:36 Patient with multiple cardiac, pulm and renal comorbidities presents with clinical picture consistent with volume overload. r/o chf exacerbation, worsening renal failure with anasarca, pna CXR UA EKG cbc diff cmp card profile, trop, bnp 04/09/17 09:38 EKG reviewed no sign of ACS, no change from prior other than occasional PVC 04/09/17 10:22 CBC patient anemic 6.3 dropped >1 point from last recorded. Order 2 U pRBC CXR congestion. Order 60 IV lasix CMP crat 2.8 baseline; BNP 3700 less than last admission 04/09/17 10:25 Patient should be admitted to telemetry, contacting Dr Rick *DC/Admit/Observation/Transfer Diagnosis at time of Disposition: Acute exacerbation of CHF (congestive heart failure), Anemia, SOB (shortness of breath), Volume overload, Chest pain, Dyspnea - Discharge Dispostion Admit: Yes
--- NOTE | 2017-04-09 08:57 | PDOC ---
Attending Attestation - Resident Resident Name: Natty Russo - ED Attending Attestation I have performed the following: I have examined & evaluated the patient, The case was reviewed & discussed with the resident, I agree w/resident's findings & plan, Exceptions are as noted - HPI HPI: 81 yo M history HTN, HL, CAD, CHF, DM, CKD, gout, GERD, anemia presents with chest pain and shortness of breath since last night. He states that the chest pain comes and goes. The shortness of breath is constant, but is worse with lying flat, exertion. He also c/o extreme fatigue. No recent med changes or dietary indiscretions. He has not missed any medication. - Physicial Exam PE: GENERAL: Awake, alert, and fully oriented, in no acute distress HEAD: No signs of trauma EYES: PERRLA, EOMI, sclera anicteric, conjunctiva clear ENT: Auricles normal inspection, hearing grossly normal, nares patent, oropharynx clear without exudates. Moist mucosa NECK: Normal ROM, supple, no lymphadenopathy, JVD, or masses LUNGS: Good air entry B/L. +Crackles at bases B/L. HEART: Regular rate and rhythm, normal S1 and S2, no murmurs, rubs or gallops ABDOMEN: Soft, nontender, normoactive bowel sounds. No guarding, no rebound. No masses EXTREMITIES: Normal range of motion, 2+ pitting edema to BLE, to level of knees. No clubbing or cyanosis. No cords, erythema, or tenderness NEUROLOGICAL: Cranial nerves II through XII grossly intact. Normal speech. Strength and sensation intact. Gait not tested due to nature of complaint. SKIN: Warm, Dry, normal turgor, no rashes or lesions noted. - Medical Decision Making Pt with multiple medical comorbidities presenting with SOB/cp. Found to have anemia with Hb ~6. Also with clinical signs of CHF. Will diurese and prepare to transfuse. Will admit.
[2017-04-09 09:31] LABS: BASOPHIL 0.5 % (0-2.0); MCH 26.3 pg (25.7-33.7); MCHC 30.9 g/dl (32.0-35.9); MEAN CELL VOLUME 85.2 fl (80-96); MEAN PLT VOLUME 7.6 fl (7.5-11.1); NEUTROPHILS 62.2 % (42.8-82.8); PLATELET COUNT 208 K/MM3 (134-434); RDW 19.3 % (11.9-15.9); WHITE BLOOD COUNT 7.4 K/mm3 (4.0-10.0)
[2017-04-09 09:37] LABS: URINE APPEARANCE CLEAR; URINE BILIRUBIN NEGATIVE (NEGATIVE); URINE COLOR STRAW; URINE GLUCOSE (UA) NEGATIVE (NEGATIVE); URINE KETONE NEGATIVE (NEGATIVE); URINE LEUK ESTERASE NEGATIVE (NEGATIVE); URINE NITRITE NEGATIVE (NEGATIVE); URINE UROBILINOGEN NEGATIVE E.U./dl (0.2-1.0)
[2017-04-09 09:40] LABS: URINE BLOOD 1+ (NEGATIVE); URINE PROTEIN 1+ (NEGATIVE)
[2017-04-09 09:41] LABS: URINE HYALINE CAST 4 /lpf; URINE RBC 1 /hpf (0-3); URINE WBC <1 /hpf (3-5)
[2017-04-09] MEDS ORDERED: FUROSEMIDE 40 MG/4 ML INJECTABLE VIAL IVPUSH ONE (09:44)
[2017-04-09 10:00] LABS: ALBUMIN 3.2 g/dl (3.4-5.0); BILIRUBIN,TOTAL 0.3 mg/dL (0.2-1.0); CALCIUM 8.3 mg/dL (8.5-10.1); COCKROFT - GAULT 28.7; CREATININE 2.8 mg/dL (0.7-1.3); TOT PROT 6.8 g/dl (6.4-8.2)
[2017-04-09 10:02] LABS: TROPONIN I 0.06 ng/ml (0.00-0.05)
[2017-04-09 10:07] LABS: INR 2.62 (0.82-1.09); PROTHROMBIN TIME (PATIENT) 29.4 SEC (9.98-11.88)
[2017-04-09] MEDS ORDERED: METOPROLOL TARTRATE 5 MG/5 ML VIAL IVPUSH ONE (10:09)
[2017-04-09 10:41] LABS: PLATELET ESTIMATE ADEQUATE (NORMAL)
[2017-04-09 10:42] LABS: ANISOCYTOSIS 1+; HYPOCHROMIA 1+
--- NOTE | 2017-04-09 11:30 | CON.CARD ---
Consult Consult Specialty:: Cardiology Referred by:: ER Reason for Consultation:: SOB, Chest pain, symptomatic anemia - History of Present Illness Chief Complaint: sob, chest pain, weakness History of Present Illness: 81 year old man with a history of HTN, HLD, CAD with prior PCI, h/o ischemic cardiomyopathy but normal LV function on most recent evaluations, Pafib, CHB s/ p PPM, HTN, DMII, HLD, CKD, NSVT, chronic anemia of chronic disease and GI bleed requiring transfusion on prior admissions, admitted with multiple complaints including generalized weakness, velazquez, sob and mild chest discomfort. Pt noted to be severely anemic again. Pt seen and examined in the ER in [place]. currently comfortable. states his symptoms have gotten progressively worse over the past week. no current chest pain or sob. no palpitations. no lightheadedness /dizziness/syncope/near syncope. +b/l LE edema. - History Source History Provided By: Patient, Family Member Limitations to Obtaining History: Language Barrier - Past Medical History Cardio/Vascular: Yes: AFIB, CAD, CHF, HTN, Hyperlipdemia, Other (CHB s/p PPM NSVT) Gastrointestinal: Yes: Constipation, GERD, GI Bleed Renal/: Yes: BPH, Other (CKD) Musculoskeletal: Yes: Osteoarthritis, Other (Gout) Endocrine: Yes: Diabetes Mellitus - Past Surgical History Past Surgical History: Yes: Cholecystectomy, Permanent Pacemaker - Alcohol/Substance Use Hx Alcohol Use: No - Smoking History Smoking history: Former smoker Have you smoked in the past 12 months: No Aproximately how many cigarettes per day: 0 If you are a former smoker, when did you quit?: "long time ago" - Social History ADL: Independent History of Recent Travel: No Home Medications - Allergies Allergies/Adverse Reactions: Allergies Allergy/AdvReac Type Severity Reaction Status Date / Time No Known Drug Allergies Allergy Verified 04/09/17 08:19 - Home Medications Home Medications: Ambulatory Orders Aspirin [Aspirin EC] 81 mg PO DAILY 12/01/15 Atorvastatin Ca [Lipitor] 20 mg PO HS 12/01/15 Glimepiride 4 mg PO DAILY 12/01/15 Ranitidine [Zantac -] 150 mg PO BID 12/01/15 Ranolazine [Ranexa] 500 mg PO BID 12/01/15 Sacubitril/Valsartan [Entresto 24 mg-26 mg Tablet] 1 each PO BID 12/01/15 Tamsulosin HCl 0.4 mg PO DAILY 12/01/15 Furosemide [Lasix -] 40 mg PO DAILY #30 tablet 12/07/15 Amlodipine Besylate 2.5 mg PO DAILY 11/04/16 Apixaban [Eliquis] 2.5 mg PO BID 11/04/16 Linaclotide [Linzess] 145 mcg PO DAILY 11/04/16 Linagliptin [Tradjenta] 5 mg PO DAILY 11/04/16 Meclizine HCl [Antivert -] 25 mg PO TID PRN 11/04/16 Febuxostat [Uloric -] 40 mg PO DAILY 02/18/17 Metoprolol Succinate [Toprol Xl] 12.5 mg PO DAILY 02/18/17 Aspirin [[place] Aspirin] 81 mg PO DAILY #30 tablet. 02/23/17 Furosemide [Lasix -] 40 mg PO DAILY tablet 02/23/17 Family Disease History - Family Disease History Family History: Denies Review of Systems - Review of Systems Constitutional: reports: Malaise, Weakness. denies: No Symptoms, Chills, Diaphoresis, Fever, Lethargy, Loss of Appetite, Night Sweats, Unintentional Wgt. Loss, Other Eyes: denies: No Symptoms, Blind Spots, Blurred Vision, Double Vision, Eye Pain , Floaters, Photophobia, Recent Change in Vision, Other HENT: denies: No Symptoms, Difficult Swallowing, Ear Discharge, Ear Pain, Epistaxis, Gingival Bleeding, Hearing Loss, Mouth Swelling, Nasal Congestion, Ocular Prosthesis, Throat Pain, Toothache, Ringing in Ears, Other Neck: denies: No Symptoms, Decreased ROM, Lumps, Pain on Movement, Stiffness, Swollen Glands, Tenderness, Other Cardiovascular: reports: Chest Pain, Edema, Shortness of Breath. denies: No Symptoms, Palpitations, Other Respiratory: reports: Exercise Intolerance, Orthopnea, SOB, SOB on Exertion. denies: No Symptoms, Cough, Hemoptysis, PND, Snoring, Wheezing, Other Gastrointestinal: reports: Bloating. denies: No Symptoms, Abdominal Pain, Constipation, Diarrhea, Dysphagia, Indigestion, Melena, Nausea, Rectal Bleeding , Vomiting, Vomiting Blood, Other Genitourinary: denies: No Symptoms, Burning, Discharge, Dysuria, Flank Pain, Frequency, Hematuria, Incontinence, Lesions, Menses, Pain, Testicular Mass, Testicular Pain, Testicular Swelling, Urgency, Vaginal Bleeding, Other Breasts: denies: No Symptoms Reported, See HPI, Breast Implants, Discharge from Nipple, Lumps, Pain, Skin Changes, Other Musculoskeletal: reports: Muscle Cramps. denies: No Symptoms, Back Pain, Crepitus, Decreased ROM, Extremity Pain, Joint Pain, Joint Swelling, Muscle Pain , Muscle Weakness, Other Integumentary: denies: No Symptoms, Blister, Bruising, Change in Color, Eczema, Erythema, Incision, Lesions, Lump, Pallor, Pruritis, Rash, Wound, Other Neurological: denies: No Symptoms, Change in LOC, Change in Speech, Confusion, Dizziness, Headache, Incoordination, Numbness, Parasthesia, Pre-Existing Deficit , Seizure, Syncope, Tremors, Unsteady Gait, Weakness, Other Endocrine: denies: No Symptoms, Excessive Sweating, Flushing, Increased Hunger, Increased Thirst, Intolerance to Cold, Intolerance to Heat, Unexplained Weight Gain, Unexplained Weight Loss, Other Hematology/Lymphatic: denies: No Symptoms, Easily Bruised, Excessive Bleeding, Swollen Glands, Other Psychiatric: denies: No Symptoms, Altered Sleep Pattern, Anxiety, Depression, Hallucinations, Panic, Paranoia, Suicidal, Other - Risk Factors Known Risk Factors: Yes: Diabetes Mellitus, Hypercholesterolemia, Hypertension Vital Signs: Vital Signs Temperature 98.3 F 04/09/17 08:20 Pulse Rate 64 04/09/17 10:05 Respiratory Rate 16 04/09/17 10:05 Blood Pressure 110/52 04/09/17 10:05 O2 Sat by Pulse Oximetry (%) 100 04/09/17 10:05 Constitutional: Yes: No Distress, Calm, Obese Eyes: Yes: Conjunctiva Clear, EOM Intact, PERRL HENT: Yes: Atraumatic, Normocephalic Neck: Yes: Supple, Trachea Midline Respiratory: Yes: Regular, Diminished. No: Rales, Rhonchi, SOB, Wheezes Gastrointestinal: Yes: Normal Bowel Sounds, Soft, Distention. No: Tenderness Cardiovascular: Yes: Pulse Irregular. No: Regular Rate and Rhythm, Bradycardia , Tachycardia, Gallop, Rub, Varicosities JVD: No Carotid Bruit: No PMI: Non-Displaced Heart Sounds: Yes: S1, S2. No: Split S2, S3, S4, Clicks, Gallop, Rub, Bruit Murmur: No: Systolic Murmur, Diastolic Murmur Musculoskeletal: Yes: WNL Extremities: Yes: WNL Edema: Yes Edema: LLE: 1+, RLE: 1+ Peripheral Pulses WNL: Yes Peripheral Pulses: 2+ Left Doralis Pedis, 2+ Right Dorsalis Pedis Integumentary: Yes: WNL Neurological: Yes: Alert, Oriented, Cran Nerves II-XII Intact Psychiatric: Yes: Alert, Oriented - Other Data Labs, Other Data: INR, PTT INR 2.62 (0.82-1.09) H D 04/09/17 09:22 ekg-nsr 81bpm, intermittent AV paced Echo: Report Reviewed Prior Cardiac Procedures: PTCA with Stent Ejection Fraction %: LVEF > or = 40 % Imaging - Results Chest X-ray: Report Reviewed, Image Reviewed EKG: Report Reviewed, Image Reviewed Other: Report Reviewed, Image Reviewed Assessment/Plan 81 year old man with a history of HTN, HLD, CAD with prior PCI, h/o ischemic cardiomyopathy but normal LV function on most recent evaluations, Pafib, CHB s/ p PPM, HTN, DMII, HLD, CKD, NSVT, chronic anemia of chronic disease and GI bleed requiring transfusion on prior admissions, admitted with multiple complaints including generalized weakness, velazquez, sob and mild chest discomfort. Pt noted to be severely anemic again. Gen Weakness/SOB/VELAZQUEZ/Chest pain-likely secondary to severe symptomatic anemia and acute on chronic diastolic chf with known underlying CAD -transfuse PRBCs -hold ASA for now until anemia work up complete, previously felt to be B12 deficiency and chronic disease not bleeding, resume ASA when safe to do so -monitor H/H -would obtain Heme evaluation -mildly volume overloaded, LE edema slightly worse than baseline, lungs not sig volume overloaded -cont home po Lasix -monitor bmp this am to evaluate K+, bun/creat Afib-paroxysmal, with recurrent anemia, h/o CHB s/p PPM -hold eliquis until etiology of anemia identified -resume ASA 81mg daily alone if safe to do so -cont home Toprol CAD-h/o stents -ASA as above -resume home toprol, ranexa, lipitor PPM-functioning normally on outpatient evaluation -f/up as outpatient
--- NOTE | 2017-04-09 14:03 | EKG ---
Test Reason : Blood Pressure : / mmHG Vent. Rate : 081 BPM Atrial Rate : 077 BPM P-R Int : 144 ms QRS Dur : 162 ms QT Int : 444 ms P-R-T Axes : 076 -58 105 degrees QTc Int : 515 ms Atrial-sensed ventricular-paced rhythm WITH OCCASIONAL PREMATURE VENTRICULAR COMPLEXES ABNORMAL ECG WHEN COMPARED WITH ECG OF 18-FEB-2017 08:33, PREMATURE VENTRICULAR COMPLEXES ARE NOW PRESENT VENT. RATE HAS DECREASED BY 4 BPM Confirmed by CRISTOBAL CROWE MD ([id number]) on 04/09/2017 2:03:18 PM Referred By: Confirmed By:CRISTOBAL CROWE MD
[2017-04-09] MEDS ORDERED: FUROSEMIDE 40 MG/4 ML INJECTABLE VIAL ONE (16:05)
[2017-04-09 22:40] VITALS: BMI 33.9
--- NOTE | 2017-04-09 23:17 | HP ---
Admitting History and Physical - Past Medical History Cardiovascular: Yes: AFIB, CAD, CHF, HTN, Hyperlipdemia, Other (CHB s/p PPM NSVT ) Gastrointestinal: Yes: Constipation, GERD, GI Bleed Renal/: Yes: BPH, Other (CKD) Musculoskeletal: Yes: Osteoarthritis, Other (Gout) Endocrine: Yes: Diabetes Mellitus - Past Surgical History Past Surgical History: Yes: Cholecystectomy, Permanent Pacemaker - Smoking History Smoking history: Former smoker Have you smoked in the past 12 months: No Aproximately how many cigarettes per day: 0 If you are a former smoker, when did you quit?: "long time ago" - Alcohol/Substance Use Hx Alcohol Use: No - Social History ADL: Independent History of Recent Travel: No Home Medications - Allergies Allergies/Adverse Reactions: Allergies Allergy/AdvReac Type Severity Reaction Status Date / Time No Known Drug Allergies Allergy Verified 04/09/17 08:19 - Home Medications Home Medications: Ambulatory Orders Aspirin [Aspirin EC] 81 mg PO DAILY 12/01/15 Atorvastatin Ca [Lipitor] 20 mg PO HS 12/01/15 Glimepiride 4 mg PO DAILY 12/01/15 Ranitidine [Zantac -] 150 mg PO BID 12/01/15 Ranolazine [Ranexa] 500 mg PO BID 12/01/15 Sacubitril/Valsartan [Entresto 24 mg-26 mg Tablet] 1 each PO BID 12/01/15 Tamsulosin HCl 0.4 mg PO DAILY 12/01/15 Furosemide [Lasix -] 40 mg PO DAILY #30 tablet 12/07/15 Amlodipine Besylate 2.5 mg PO DAILY 11/04/16 Apixaban [Eliquis] 2.5 mg PO BID 11/04/16 Linaclotide [Linzess] 145 mcg PO DAILY 11/04/16 Linagliptin [Tradjenta] 5 mg PO DAILY 11/04/16 Meclizine HCl [Antivert -] 25 mg PO TID PRN 11/04/16 Febuxostat [Uloric -] 40 mg PO DAILY 02/18/17 Metoprolol Succinate [Toprol Xl] 12.5 mg PO DAILY 02/18/17 Aspirin [[place] Aspirin] 81 mg PO DAILY #30 tablet. 02/23/17 Furosemide [Lasix -] 40 mg PO DAILY tablet 02/23/17 Unobtainable 04/09/17 Physical Examination Vital Signs: Vital Signs Temperature 97.2 F L 04/09/17 22:00 Pulse Rate 71 04/09/17 22:00 Respiratory Rate 20 04/09/17 22:00 Blood Pressure 142/71 04/09/17 22:00 O2 Sat by Pulse Oximetry (%) 97 04/09/17 22:00
[2017-04-10] MEDS: INSULIN SLIDING SCALE (NOVOLOG) 1 VIAL SQ SCH ×4 (06:19→21:54)
[2017-04-10] MEDS: sitaGLIPtin PHOSPHATE 25 MG TABLET (FP) PO SCH (08:17)
[2017-04-10] MEDS: TAMSULOSIN HCL 0.4 MG CAP.ER.24H (FP) PO SCH (08:17)
[2017-04-10] MEDS: GLIMEPIRIDE 4 MG TABLET (FP) PO SCH (08:17)
--- NOTE | 2017-04-10 08:51 | PN ---
Progress Note (short form) - Note Progress Note: Labs noted this am. Hypokalemia, Elevated bun/creat ratio. Stop Lasix, supplement K+. monitor labs more closely if remains NPO with no feeding tube.
--- NOTE | 2017-04-10 09:58 | PN ---
Progress Note, Physician Chief Complaint: no acute distress TELE: underlying AF with intermittent V pacing. History of Present Illness: Denies SOB - Current Medication List Current Medications: Active Medications Amlodipine Besylate (Norvasc -) 2.5 mg PO DAILY [facility] Atorvastatin Calcium (Lipitor -) 20 mg PO HS [place] Furosemide (Lasix -) 40 mg PO DAILY [facility] Glimepiride (Amaryl -) 4 mg PO DAILY@0700 [facility] Last Admin: 04/10/17 08:17 Dose: 4 mg Insulin Aspart (Novolog Vial Sliding Scale -) 1 vial SQ ACHS [facility] PRN Reason: Protocol Last Admin: 04/10/17 06:19 Dose: Not Given Metoprolol Succinate (Toprol Xl -) 12.5 mg PO DAILY [facility] Non-Formulary Medication (Linaclotide [Linzess]) 145 mcg PO DAILY [facility] Ranitidine HCl (Zantac -) 150 mg PO BID [facility] Ranolazine (Ranexa -) 500 mg PO BID [facility] Sitagliptin Phosphate (Januvia -) 25 mg PO DAILY@0700 [facility] Last Admin: 04/10/17 08:17 Dose: 25 mg Tamsulosin HCl (Flomax -) 0.4 mg PO DAILY@0830 [facility] Last Admin: 04/10/17 08:17 Dose: 0.4 mg - Objective Vital Signs: Vital Signs Temperature 98 F 04/10/17 09:00 Pulse Rate 70 04/10/17 09:00 Respiratory Rate 18 04/10/17 09:00 Blood Pressure 116/60 04/10/17 09:00 O2 Sat by Pulse Oximetry (%) 97 04/09/17 22:00 Constitutional: Yes: Calm Eyes: Yes: Conjunctiva Clear Cardiovascular: Yes: Pulse Irregular Respiratory: Yes: CTA Bilaterally (no rales.) Gastrointestinal: Yes: Soft, Abdomen, Obese Edema: No Neurological: Yes: Alert, Oriented Labs: INR, PTT INR 2.62 (0.82-1.09) H D 04/09/17 09:22 Laboratory Tests 04/09/17 04/09/17 04/09/17 09:22 09:22 09:22 WBC 7.4 Hgb 6.3 L* D Hct 20.3 L D Plt Count 208 INR 2.62 H D Sodium 142 Potassium 4.4 Creatinine 2.8 H AST 13 L ALT 17 D Troponin I 0.06 H B-Natriuretic Peptide 3753.59 H - ....Imaging EKG: Image Reviewed Assessment/Plan 81 year old man with a history of HTN, HLD, CAD with prior PCI, h/o ischemic cardiomyopathy but normal LV function on most recent evaluations, PAF, CHB s/p PPM, HTN, DMII, HLD, CKD, NSVT, chronic anemia of chronic disease and GI bleed requiring transfusion on prior admissions, admitted with multiple complaints including generalized weakness, velazquez, sob and mild chest discomfort. Pt noted to be severely anemic again. Gen Weakness/SOB/VELAZQUEZ/Chest pain-likely secondary to severe symptomatic anemia and acute on chronic diastolic chf with known underlying CAD -transfused 2 UPRBCs -hold ASA for now until anemia work up complete, previously felt to be B12 deficiency and chronic disease not bleeding, resume ASA when safe to do so -monitor H/H -would obtain Heme evaluation -cont home po Lasix, appears euvolemic on exam -monitor renal function and electrolytes Afib-paroxysmal, with recurrent anemia, h/o CHB s/p PPM -hold eliquis until etiology of anemia identified -resume ASA 81mg daily alone when safe to do so -cont home beta jeevan CAD-h/o stents -holding ASA PPM-functioning normally on outpatient evaluation -f/up as outpatient
[2017-04-10] MEDS ORDERED: PATIENT'S OWN MEDICATION (NON-FORMULARY) (Linaclotide [Linzess] 145 MCG) PO SCH (10:00)
[2017-04-10] MEDS ORDERED: SACUBITRIL/VALSARTAN 24 MG-26 MG TABLET PO SCH (10:00)
[2017-04-10] MEDS: amLODIPine BESYLATE 2.5 MG TABLET (FP) PO SCH (10:05)
[2017-04-10] MEDS: METOPROLOL SUCCINATE 25 MG TAB.SR.24H (FP) PO SCH (10:05)
[2017-04-10] MEDS: FUROSEMIDE 40 MG TABLET (FP) PO SCH (10:05)
[2017-04-10] MEDS: RANITIDINE HCL 150 MG TABLET (FP) PO SCH ×2 (10:06→21:52)
[2017-04-10] MEDS: RANOLAZINE E.R. 500 MG TABLET (FP) PO SCH ×2 (10:06→21:52)
[2017-04-10 12:45] LABS: MCH 26.9 pg (25.7-33.7); MEAN PLT VOLUME 7.7 fl (7.5-11.1); PLATELET COUNT 242 K/MM3 (134-434); RDW 17.9 % (11.9-15.9); WHITE BLOOD COUNT 9.3 K/mm3 (4.0-10.0)
[2017-04-10 13:18] LABS: CALCIUM 8.9 mg/dL (8.5-10.1); COCKROFT - GAULT 31.33; CREATININE 2.5 mg/dL (0.7-1.3)
--- NOTE | 2017-04-10 13:47 | CON.GI ---
Consult Consult Specialty:: gastroenterology Referred by:: Don Patterson/MD Prabhjot - History of Present Illness History of Present Illness: 81 y/o male with PMH of ischemic cardiomyopathy, CHF, paroxsmal atrial fibrillilation, on Eliquis as an out[patient because of recurren anemia. He was admitted 10/2016 and 01/2017 with similar symptoms. No gi w/u was done underlying heart problems. - Past Medical History Cardio/Vascular: Yes: AFIB, CAD, CHF, HTN, Hyperlipdemia, Other (CHB s/p PPM NSVT) Gastrointestinal: Yes: Constipation, GERD, GI Bleed Renal/: Yes: BPH, Other (CKD) Musculoskeletal: Yes: Osteoarthritis, Other (Gout) Endocrine: Yes: Diabetes Mellitus - Past Surgical History Past Surgical History: Yes: Cholecystectomy, Permanent Pacemaker - Alcohol/Substance Use Hx Alcohol Use: No - Smoking History Smoking history: Former smoker Have you smoked in the past 12 months: No Aproximately how many cigarettes per day: 0 If you are a former smoker, when did you quit?: "long time ago" - Social History ADL: Independent History of Recent Travel: No Home Medications - Allergies Allergies/Adverse Reactions: Allergies Allergy/AdvReac Type Severity Reaction Status Date / Time No Known Drug Allergies Allergy Verified 04/09/17 08:19 - Home Medications Home Medications: Ambulatory Orders Aspirin [Aspirin EC] 81 mg PO DAILY 12/01/15 Atorvastatin Ca [Lipitor] 20 mg PO HS 12/01/15 Glimepiride 4 mg PO DAILY 12/01/15 Ranitidine [Zantac -] 150 mg PO BID 12/01/15 Ranolazine [Ranexa] 500 mg PO BID 12/01/15 Sacubitril/Valsartan [Entresto 24 mg-26 mg Tablet] 1 each PO BID 12/01/15 Tamsulosin HCl 0.4 mg PO DAILY 12/01/15 Furosemide [Lasix -] 40 mg PO DAILY #30 tablet 12/07/15 Amlodipine Besylate 2.5 mg PO DAILY 11/04/16 Apixaban [Eliquis] 2.5 mg PO BID 11/04/16 Linaclotide [Linzess] 145 mcg PO DAILY 11/04/16 Linagliptin [Tradjenta] 5 mg PO DAILY 11/04/16 Meclizine HCl [Antivert -] 25 mg PO TID PRN 11/04/16 Febuxostat [Uloric -] 40 mg PO DAILY 02/18/17 Metoprolol Succinate [Toprol Xl] 12.5 mg PO DAILY 02/18/17 Aspirin [[place] Aspirin] 81 mg PO DAILY #30 tablet. 02/23/17 Furosemide [Lasix -] 40 mg PO DAILY tablet 02/23/17 Unobtainable 04/09/17 Review of Systems - Review of Systems Constitutional: denies: Fever, Lethargy, Loss of Appetite Eyes: denies: Blurred Vision HENT: denies: Difficult Swallowing Neck: denies: Decreased ROM Cardiovascular: denies: Chest Pain Respiratory: denies: Cough Gastrointestinal: denies: Abdominal Pain, Constipation, Diarrhea, Indigestion, Melena, Rectal Bleeding Physical Exam-GI Vital Signs: Vital Signs Temperature 98 F 04/10/17 09:00 Pulse Rate 70 04/10/17 09:00 Respiratory Rate 18 04/10/17 09:00 Blood Pressure 116/60 04/10/17 09:00 O2 Sat by Pulse Oximetry (%) 98 04/10/17 11:22 Constitutional: Yes: Well Nourished Eyes: Yes: Conjunctiva Clear HENT: Yes: Atraumatic Neck: Yes: Supple Cardiovascular: Yes: Regular Rate and Rhythm Respiratory: Yes: CTA Bilaterally ...Palpate: Yes: Soft. No: Firm/Rigid, Guarding, Hepatomegaly, Mass, Pulsatile Mass, Splenomegaly, Tenderness Labs: CBC, BMP 04/10/17 12:30 04/10/17 12:30 INR, PTT INR 2.62 (0.82-1.09) H D 04/09/17 09:22 Problem List - Problems (1) Anemia Assessment/Plan: r/o occult gi bleeding R> for EGD in am if medically cleared if negative will need colonoscopy Code(s): D64.9 - ANEMIA, UNSPECIFIED (2) Chest pain Code(s): R07.9 - CHEST PAIN, UNSPECIFIED
[2017-04-10] MEDS: ACETAMINOPHEN 325 MG TABLET (FP) PO PRN (14:53)
--- NOTE | 2017-04-10 17:10 | CONSULT ---
Consult Consult Specialty:: Hematology-Oncology Referred by:: Dr. Rick Reason for Consultation:: Anemia - History Source History Provided By: Patient, Medical Record Limitations to Obtaining History: Language Barrier - Past Medical History Cardio/Vascular: Yes: AFIB, CAD, CHF, HTN, Hyperlipdemia, Other (CHB s/p PPM NSVT) Gastrointestinal: Yes: Constipation, GERD, GI Bleed Renal/: Yes: BPH, Other (CKD) Musculoskeletal: Yes: Osteoarthritis, Other (Gout) Endocrine: Yes: Diabetes Mellitus - Past Surgical History Past Surgical History: Yes: Cholecystectomy, Permanent Pacemaker - Alcohol/Substance Use Hx Alcohol Use: No - Smoking History Smoking history: Former smoker Have you smoked in the past 12 months: No Aproximately how many cigarettes per day: 0 If you are a former smoker, when did you quit?: "long time ago" - Social History ADL: Independent History of Recent Travel: No Home Medications - Allergies Allergies/Adverse Reactions: Allergies Allergy/AdvReac Type Severity Reaction Status Date / Time No Known Drug Allergies Allergy Verified 04/09/17 08:19 - Home Medications Home Medications: Ambulatory Orders Aspirin [Aspirin EC] 81 mg PO DAILY 12/01/15 Atorvastatin Ca [Lipitor] 20 mg PO HS 12/01/15 Glimepiride 4 mg PO DAILY 12/01/15 Ranitidine [Zantac -] 150 mg PO BID 12/01/15 Ranolazine [Ranexa] 500 mg PO BID 12/01/15 Sacubitril/Valsartan [Entresto 24 mg-26 mg Tablet] 1 each PO BID 12/01/15 Tamsulosin HCl 0.4 mg PO DAILY 12/01/15 Furosemide [Lasix -] 40 mg PO DAILY #30 tablet 12/07/15 Amlodipine Besylate 2.5 mg PO DAILY 11/04/16 Apixaban [Eliquis] 2.5 mg PO BID 11/04/16 Linaclotide [Linzess] 145 mcg PO DAILY 11/04/16 Linagliptin [Tradjenta] 5 mg PO DAILY 11/04/16 Meclizine HCl [Antivert -] 25 mg PO TID PRN 11/04/16 Febuxostat [Uloric -] 40 mg PO DAILY 02/18/17 Metoprolol Succinate [Toprol Xl] 12.5 mg PO DAILY 02/18/17 Aspirin [[place] Aspirin] 81 mg PO DAILY #30 tablet. 02/23/17 Furosemide [Lasix -] 40 mg PO DAILY tablet 02/23/17 Unobtainable 04/09/17 Review of Systems - Review of Systems Constitutional: reports: Loss of Appetite, Malaise, Night Sweats, Weakness Eyes: reports: Blind Spots, Blurred Vision, Double Vision HENT: reports: Difficult Swallowing, Epistaxis Neck: reports: Pain on Movement, Stiffness, Tenderness Cardiovascular: reports: Chest Pain, Shortness of Breath Respiratory: reports: SOB on Exertion Gastrointestinal: reports: Constipation Genitourinary: reports: Dysuria, Flank Pain, Other (nocturia) Musculoskeletal: denies: Back Pain, Muscle Pain Integumentary: denies: Blister, Eczema, Erythema Neurological: denies: Seizure, Syncope Endocrine: reports: No Symptoms Hematology/Lymphatic: reports: No Symptoms Psychiatric: reports: No Symptoms Physical Exam Vital Signs: Vital Signs Temperature 97.8 F 04/10/17 15:00 Pulse Rate 61 04/10/17 15:00 Respiratory Rate 18 04/10/17 15:00 Blood Pressure 118/55 04/10/17 15:00 O2 Sat by Pulse Oximetry (%) 98 04/10/17 11:22 Constitutional: Yes: No Distress Eyes: Yes: PERRL. No: Diplopia, Ptosis, Sclera Icterus HENT: No: Epistaxis, Hoarseness, Thrush, Tonsillar Exudate Neck: Yes: Trachea Midline. No: Tenderness, Thyromegaly Cardiovascular: Yes: Pulse Irregular Respiratory: Yes: CTA Bilaterally Gastrointestinal: Yes: Normal Bowel Sounds, Soft. No: Hepatomegaly, Splenomegaly Renal/: No: CVA Tenderness - Left, CVA Tenderness - Right Musculoskeletal: No: Back Pain, Muscle Pain Extremities: No: Calf Tenderness, Cool, Cyanosis Edema: Yes Edema: LLE: 1+, RLE: 1+ Integumentary: No: Bruising, Jaundice Neurological: Yes: WNL ...Motor Strength: WNL Psychiatric: Yes: WNL Labs: CBC, BMP 04/10/17 12:30 04/10/17 12:30 Imaging - Results X-ray: Report Reviewed Problem List - Problems (1) Anemia Assessment/Plan: Review of prior records reveals that patient has had chronic anemia dating back through 2015. 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 He has had hematest positive stool . He will require a GI work up to assess. Low B-12 level will be treated empirically . Additional screening. Code(s): D64.9 - ANEMIA, UNSPECIFIED (2) Chest pain Code(s): R07.9 - CHEST PAIN, UNSPECIFIED (3) Acute on chronic diastolic (congestive) heart failure Code(s): I50.33 - ACUTE ON CHRONIC DIASTOLIC (CONGESTIVE) HEART FAILURE (4) Acute on chronic renal failure Assessment/Plan: Component of chronic renal disease contributing to anemia. Per renal protocol, may be a candidate for erythropoietin. Code(s): N17.9 - ACUTE KIDNEY FAILURE, UNSPECIFIED N18.9 - CHRONIC KIDNEY DISEASE, UNSPECIFIED (5) PAF (paroxysmal atrial fibrillation) Code(s): I48.0 - PAROXYSMAL ATRIAL FIBRILLATION
--- NOTE | 2017-04-10 17:37 | CONSULT ---
Consult Consult Specialty:: Nephrology Reason for Consultation:: CKD - History of Present Illness Chief Complaint: shortness of breath History of Present Illness: Pt is an 81 year old male with pmhx of CKD. He presents to the ER with chest pain and shortness of breath. He was found to be anemic. I was called to evaluate him for CKD. He is known to me from previous visits but has poor outpt follow up. He denies dysuria or hematuria. He has hx of CKD, CAD, CHF, gout, GERD and anemia. He is not sure about all of his meds. - History Source History Provided By: Patient, Medical Record - Past Medical History Cardio/Vascular: Yes: AFIB, CAD, CHF, HTN, Hyperlipdemia, Other (CHB s/p PPM NSVT) Gastrointestinal: Yes: Constipation, GERD, GI Bleed Renal/: Yes: BPH, Other (CKD) Musculoskeletal: Yes: Osteoarthritis, Other (Gout) Endocrine: Yes: Diabetes Mellitus - Past Surgical History Past Surgical History: Yes: Cholecystectomy, Permanent Pacemaker - Alcohol/Substance Use Hx Alcohol Use: No - Smoking History Smoking history: Former smoker Have you smoked in the past 12 months: No Aproximately how many cigarettes per day: 0 If you are a former smoker, when did you quit?: "long time ago" - Social History ADL: Independent History of Recent Travel: No Home Medications - Allergies Allergies/Adverse Reactions: Allergies Allergy/AdvReac Type Severity Reaction Status Date / Time No Known Drug Allergies Allergy Verified 04/09/17 08:19 - Home Medications Home Medications: Ambulatory Orders Aspirin [Aspirin EC] 81 mg PO DAILY 12/01/15 Atorvastatin Ca [Lipitor] 20 mg PO HS 12/01/15 Glimepiride 4 mg PO DAILY 12/01/15 Ranitidine [Zantac -] 150 mg PO BID 12/01/15 Ranolazine [Ranexa] 500 mg PO BID 12/01/15 Sacubitril/Valsartan [Entresto 24 mg-26 mg Tablet] 1 each PO BID 12/01/15 Tamsulosin HCl 0.4 mg PO DAILY 12/01/15 Furosemide [Lasix -] 40 mg PO DAILY #30 tablet 12/07/15 Amlodipine Besylate 2.5 mg PO DAILY 11/04/16 Apixaban [Eliquis] 2.5 mg PO BID 11/04/16 Linaclotide [Linzess] 145 mcg PO DAILY 11/04/16 Linagliptin [Tradjenta] 5 mg PO DAILY 11/04/16 Meclizine HCl [Antivert -] 25 mg PO TID PRN 11/04/16 Febuxostat [Uloric -] 40 mg PO DAILY 02/18/17 Metoprolol Succinate [Toprol Xl] 12.5 mg PO DAILY 02/18/17 Aspirin [[place] Aspirin] 81 mg PO DAILY #30 tablet. 02/23/17 Furosemide [Lasix -] 40 mg PO DAILY tablet 02/23/17 Unobtainable 04/09/17 Family Disease History - Family Disease History Family History: Denies Review of Systems - Review of Systems Constitutional: reports: Malaise Eyes: reports: No Symptoms HENT: reports: No Symptoms Neck: reports: No Symptoms Cardiovascular: reports: Chest Pain, Edema, Shortness of Breath Respiratory: reports: SOB Gastrointestinal: reports: No Symptoms Genitourinary: reports: No Symptoms Musculoskeletal: reports: No Symptoms Integumentary: reports: No Symptoms Neurological: reports: No Symptoms Endocrine: reports: No Symptoms Hematology/Lymphatic: reports: No Symptoms Physical Exam Vital Signs: Vital Signs Temperature 97.8 F 04/10/17 15:00 Pulse Rate 61 04/10/17 15:00 Respiratory Rate 18 04/10/17 15:00 Blood Pressure 118/55 04/10/17 15:00 O2 Sat by Pulse Oximetry (%) 98 04/10/17 11:22 Constitutional: Yes: Calm Eyes: Yes: Conjunctiva Clear HENT: Yes: Atraumatic Neck: Yes: Supple Cardiovascular: Yes: S1, S2 Respiratory: Yes: CTA Bilaterally Gastrointestinal: Yes: Normal Bowel Sounds, Soft Musculoskeletal: Yes: WNL Edema: Yes Edema: LLE: 1+, RLE: 1+ Neurological: Yes: Oriented Psychiatric: Yes: Oriented Labs: CBC, BMP 04/10/17 12:30 04/10/17 12:30 Laboratory Tests 02/23/17 04/09/17 04/09/17 10:44 09:22 09:22 WBC 7.4 Hgb 6.3 L* D BUN Creatinine 3.0 H 2.8 H 04/10/17 04/10/17 12:30 12:30 WBC 9.3 Hgb 9.0 L D BUN 55 H Creatinine 2.5 H Imaging - Results Chest X-ray: Report Reviewed Problem List - Problems (1) Anemia Code(s): D64.9 - ANEMIA, UNSPECIFIED (2) Chest pain Code(s): R07.9 - CHEST PAIN, UNSPECIFIED (3) Dyspnea Code(s): R06.00 - DYSPNEA, UNSPECIFIED (4) CAD (coronary artery disease) Code(s): I25.10 - ATHSCL HEART DISEASE OF [place] CORONARY ARTERY W/O ANG PCTRS Qualifiers: Coronary Disease-Associated Artery/Lesion type: unspecified vessel or lesion type [place] vs. transplanted heart: unspecified whether [place] or transplanted heart Associated angina: without angina Qualified Code(s ): I25.10 - Atherosclerotic heart disease of [place] coronary artery without angina pectoris (5) Chronic kidney disease Code(s): N18.9 - CHRONIC KIDNEY DISEASE, UNSPECIFIED Qualifiers: Chronic kidney disease stage: unspecified stage Qualified Code(s): N18.9 - Chronic kidney disease, unspecified Assessment/Plan Current Medications Generic Name Dose Route Start Last Admin Trade Name Freq PRN Reason Stop Dose Admin Acetaminophen 650 mg 04/10/17 13:13 04/10/17 14:53 Tylenol - PO 650 mg Q6H PRN Administration PAIN Amlodipine Besylate 2.5 mg 04/10/17 10:00 04/10/17 10:05 Norvasc - PO 2.5 mg DAILY [facility] Administration Atorvastatin Calcium 20 mg 04/10/17 22:00 Lipitor - PO HS [facility] Cyanocobalamin 1,000 mcg 04/17/17 10:00 Vitamin B12 Injection - IM Q7D@1000 [facility] Furosemide 40 mg 04/10/17 10:00 04/10/17 10:05 Lasix - PO 40 mg DAILY [facility] Administration Glimepiride 4 mg 04/10/17 07:15 04/10/17 08:17 Amaryl - PO 4 mg DAILY@0700 [facility] Administration Insulin Aspart 1 vial 04/10/17 07:00 04/10/17 15:58 Novolog Vial Sliding Scale - SQ Not Given ACHS [facility] Protocol Metoprolol Succinate 12.5 mg 04/10/17 10:00 04/10/17 10:05 Toprol Xl - PO 12.5 mg DAILY [facility] Administration Non-Formulary Medication 145 mcg 04/10/17 10:00 Linaclotide [Linzess] PO DAILY [facility] Ranitidine HCl 150 mg 04/10/17 10:00 04/10/17 10:06 Zantac - PO 150 mg BID [facility] Administration Ranolazine 500 mg 04/10/17 10:00 04/10/17 10:06 Ranexa - PO 500 mg BID [facility] Administration Sitagliptin Phosphate 25 mg 04/10/17 07:15 04/10/17 08:17 Januvia - PO 25 mg DAILY@0700 [facility] Administration Tamsulosin HCl 0.4 mg 04/10/17 08:30 04/10/17 08:17 Flomax - PO 0.4 mg DAILY@0830 [facility] Administration IMPRESSION 1. CKD 2. CHF 3. s/p pacemaker placement 4. anemia 5. dm 6. htn 7. hyperlipidemia Plan - cont with lasix - anemia workup - cardio follow up - will monitor renal function - avoid nephrotoxins Dr Rosario
[2017-04-10] MEDS ORDERED: CYANOCOBALAMIN (VITAMIN B-12) 1000 MCG/1 ML VIAL IM SCH (18:00)
--- NOTE | 2017-04-10 20:32 | PN ---
Progress Note, Physician History of Present Illness: No new complaints - Current Medication List Current Medications: Active Medications Acetaminophen (Tylenol -) 650 mg PO Q6H PRN PRN Reason: PAIN Last Admin: 04/10/17 14:53 Dose: 650 mg Amlodipine Besylate (Norvasc -) 2.5 mg PO DAILY [facility] Last Admin: 04/10/17 10:05 Dose: 2.5 mg Atorvastatin Calcium (Lipitor -) 20 mg PO [facility] Cyanocobalamin (Vitamin B12 Injection -) 1,000 mcg IM Q7D@1000 [facility] Last Admin: 04/10/17 18:28 Dose: 1,000 mcg Furosemide (Lasix -) 40 mg PO DAILY [facility] Last Admin: 04/10/17 10:05 Dose: 40 mg Glimepiride (Amaryl -) 4 mg PO DAILY@0700 [facility] Last Admin: 04/10/17 08:17 Dose: 4 mg Insulin Aspart (Novolog Vial Sliding Scale -) 1 vial SQ ACHS [facility] PRN Reason: Protocol Last Admin: 04/10/17 15:58 Dose: Not Given Metoprolol Succinate (Toprol Xl -) 12.5 mg PO DAILY [facility] Last Admin: 04/10/17 10:05 Dose: 12.5 mg Non-Formulary Medication (Linaclotide [Linzess]) 145 mcg PO DAILY [facility] Ranitidine HCl (Zantac -) 150 mg PO BID [facility] Last Admin: 04/10/17 10:06 Dose: 150 mg Ranolazine (Ranexa -) 500 mg PO BID [facility] Last Admin: 04/10/17 10:06 Dose: 500 mg Sitagliptin Phosphate (Januvia -) 25 mg PO DAILY@0700 [facility] Last Admin: 04/10/17 08:17 Dose: 25 mg Tamsulosin HCl (Flomax -) 0.4 mg PO DAILY@0830 [facility] Last Admin: 04/10/17 08:17 Dose: 0.4 mg - Objective Vital Signs: Vital Signs Temperature 97.4 F L 04/10/17 17:00 Pulse Rate 61 04/10/17 17:00 Respiratory Rate 20 04/10/17 17:00 Blood Pressure 132/60 04/10/17 17:00 O2 Sat by Pulse Oximetry (%) 98 04/10/17 11:22 Constitutional: Yes: Well Nourished HENT: Yes: WNL Neck: Yes: Supple Cardiovascular: Yes: WNL, Regular Rate and Rhythm Respiratory: Yes: WNL, Regular, CTA Bilaterally Gastrointestinal: Yes: WNL, Normal Bowel Sounds, Soft Labs: CBC, BMP 04/10/17 12:30 04/10/17 12:30 INR, PTT INR 2.62 (0.82-1.09) H D 04/09/17 09:22 Problem List - Problems (1) Acute exacerbation of CHF (congestive heart failure) Assessment/Plan: Cont lasix Monitor electrolytes Code(s): I50.9 - HEART FAILURE, UNSPECIFIED (2) Anemia Assessment/Plan: Symptomatic anemia W/U in progress Fe def anemia Possible EGD/colonoscopy Will await cardio clearance Cont protonix Code(s): D64.9 - ANEMIA, UNSPECIFIED (3) Acute on chronic renal failure Code(s): N17.9 - ACUTE KIDNEY FAILURE, UNSPECIFIED N18.9 - CHRONIC KIDNEY DISEASE, UNSPECIFIED (4) BPH (benign prostatic hyperplasia) Assessment/Plan: Cont flomax Code(s): N40.0 - BENIGN PROSTATIC HYPERPLASIA WITHOUT LOWER URINRY TRACT SYMP (5) Diabetes mellitus type II, controlled Assessment/Plan: Cont novolog w/ sliding scale Cont amaryl/januvia Code(s): E11.9 - TYPE 2 DIABETES MELLITUS WITHOUT COMPLICATIONS (6) CAD (coronary artery disease) Code(s): I25.10 - ATHSCL HEART DISEASE OF [place] CORONARY ARTERY W/O ANG PCTRS Qualifiers: Coronary Disease-Associated Artery/Lesion type: unspecified vessel or lesion type [place] vs. transplanted heart: unspecified whether [place] or transplanted heart Associated angina: without angina Qualified Code(s ): I25.10 - Atherosclerotic heart disease of [place] coronary artery without angina pectoris (7) Hypertension Assessment/Plan: Cont norvasc/toprol Code(s): I10 - ESSENTIAL (PRIMARY) HYPERTENSION Qualifiers: Hypertension type: essential hypertension Qualified Code(s): I10 - Essential (primary) hypertension (8) HLD (hyperlipidemia) Assessment/Plan: Cont lipitor Code(s): E78.5 - HYPERLIPIDEMIA, UNSPECIFIED Qualifiers: Hyperlipidemia type: mixed hyperlipidemia Qualified Code(s): E78.2 - Mixed hyperlipidemia
[2017-04-10] MEDS: ATORVASTATIN CA 20 MG TABLET (FP) PO SCH (21:51)
[2017-04-11] MEDS: GLIMEPIRIDE 4 MG TABLET (FP) PO SCH (06:15)
[2017-04-11] MEDS: INSULIN SLIDING SCALE (NOVOLOG) 1 VIAL SQ SCH ×4 (06:15→22:54)
[2017-04-11] MEDS: sitaGLIPtin PHOSPHATE 25 MG TABLET (FP) PO SCH (06:15)
[2017-04-11 07:27] LABS: BASOPHIL 0.4 % (0-2.0); EOSINOPHIL 1.1 % (0-4.5); MCH 27.1 pg (25.7-33.7); MCHC 32.5 g/dl (32.0-35.9); MEAN CELL VOLUME 83.5 fl (80-96); MEAN PLT VOLUME 8.1 fl (7.5-11.1); NEUTROPHILS 67.4 % (42.8-82.8); PLATELET COUNT 231 K/MM3 (134-434); RDW 17.7 % (11.9-15.9); WHITE BLOOD COUNT 9.8 K/mm3 (4.0-10.0)
[2017-04-11 08:24] LABS: ALBUMIN 3.1 g/dl (3.4-5.0); BILIRUBIN,TOTAL 0.5 mg/dL (0.2-1.0); CALCIUM 8.5 mg/dL (8.5-10.1); COCKROFT - GAULT 17.12; CREATININE 2.4 mg/dL (0.7-1.3); TOT PROT 6.6 g/dl (6.4-8.2)
[2017-04-11 09:01] LABS: THYROID STIMULATING HORMONE 0.35 uIU/ml (0.358-3.74)
[2017-04-11] MEDS: amLODIPine BESYLATE 2.5 MG TABLET (FP) PO SCH (09:05)
[2017-04-11] MEDS: TAMSULOSIN HCL 0.4 MG CAP.ER.24H (FP) PO SCH (09:05)
[2017-04-11] MEDS: METOPROLOL SUCCINATE 25 MG TAB.SR.24H (FP) PO SCH (09:05)
[2017-04-11] MEDS: RANITIDINE HCL 150 MG TABLET (FP) PO SCH ×2 (09:06→23:00)
[2017-04-11] MEDS: FUROSEMIDE 40 MG TABLET (FP) PO SCH (09:06)
[2017-04-11] MEDS: RANOLAZINE E.R. 500 MG TABLET (FP) PO SCH ×2 (09:06→23:00)
[2017-04-11 09:09] LABS: INR 1.75 (0.82-1.09); PROTHROMBIN TIME (PATIENT) 19.5 SEC (9.98-11.88)
--- NOTE | 2017-04-11 09:17 | PN ---
Progress Note, Physician Chief Complaint: no distress No SOB TELE: Underlying AF with intermittent pacing and rare VPCs History of Present Illness: for EGD today - Current Medication List Current Medications: Active Medications Acetaminophen (Tylenol -) 650 mg PO Q6H PRN PRN Reason: PAIN Last Admin: 04/10/17 14:53 Dose: 650 mg Amlodipine Besylate (Norvasc -) 2.5 mg PO DAILY [facility] Last Admin: 04/11/17 09:05 Dose: 2.5 mg Atorvastatin Calcium (Lipitor -) 20 mg PO HS [facility] Last Admin: 04/10/17 21:51 Dose: 20 mg Cyanocobalamin (Vitamin B12 Injection -) 1,000 mcg IM Q7D@1000 [facility] Last Admin: 04/10/17 18:28 Dose: 1,000 mcg Furosemide (Lasix -) 40 mg PO DAILY [facility] Last Admin: 04/11/17 09:06 Dose: 40 mg Glimepiride (Amaryl -) 4 mg PO DAILY@0700 [facility] Last Admin: 04/11/17 06:15 Dose: Not Given Insulin Aspart (Novolog Vial Sliding Scale -) 1 vial SQ ACHS [facility] PRN Reason: Protocol Last Admin: 04/11/17 06:15 Dose: Not Given Metoprolol Succinate (Toprol Xl -) 12.5 mg PO DAILY [facility] Last Admin: 04/11/17 09:05 Dose: 12.5 mg Non-Formulary Medication (Linaclotide [Linzess]) 145 mcg PO DAILY [facility] Ranitidine HCl (Zantac -) 150 mg PO BID [facility] Last Admin: 04/11/17 09:06 Dose: 150 mg Ranolazine (Ranexa -) 500 mg PO BID [facility] Last Admin: 04/11/17 09:06 Dose: 500 mg Sitagliptin Phosphate (Januvia -) 25 mg PO DAILY@0700 [facility] Last Admin: 04/11/17 06:15 Dose: Not Given Tamsulosin HCl (Flomax -) 0.4 mg PO DAILY@0830 [facility] Last Admin: 04/11/17 09:05 Dose: 0.4 mg - Objective Vital Signs: Vital Signs Temperature 97.8 F 04/11/17 08:26 Pulse Rate 84 04/11/17 08:26 Respiratory Rate 20 04/11/17 08:28 Blood Pressure 117/72 04/11/17 08:26 O2 Sat by Pulse Oximetry (%) 99 04/11/17 08:28 Constitutional: Yes: No Distress Cardiovascular: Yes: Pulse Irregular Respiratory: Yes: CTA Bilaterally (no rales or whezzing) Gastrointestinal: Yes: Soft Edema: No Neurological: Yes: Alert, Oriented Labs: CBC, BMP 04/11/17 05:10 04/11/17 05:10 INR, PTT INR 2.62 (0.82-1.09) H D 04/09/17 09:22 Laboratory Tests 04/11/17 04/11/17 05:10 05:50 WBC 9.8 Hgb 8.5 L Plt Count 231 INR Pending - ....Imaging EKG: Image Reviewed Assessment/Plan 81 year old man with a history of HTN, HLD, CAD with prior PCI, h/o ischemic cardiomyopathy but normal LV function on most recent evaluations, PAF, CHB s/p PPM, HTN, DMII, HLD, CKD, NSVT, chronic anemia of chronic disease and GI bleed requiring transfusion on prior admissions, admitted with multiple complaints including generalized weakness, velazquez, sob and mild chest discomfort and marked anemia. Gen Weakness/SOB/VELAZQUEZ/Chest pain-likely secondary to severe symptomatic anemia and acute on chronic diastolic chf with known underlying CAD -transfused 2 UPRBCs -hold ASA for now until anemia work up complete, previously felt to be B12 deficiency and chronic disease not bleeding, resume ASA when safe to do so -monitor H/H -Heme input noted. -cont home po Lasix, appears euvolemic on exam -monitor renal function and electrolytes Afib-paroxysmal, with recurrent anemia, h/o CHB s/p PPM -hold eliquis until etiology of anemia identified -resume ASA 81mg daily alone when safe to do so -cont home beta jeevan CAD-h/o stents -holding ASA PPM-functioning normally on outpatient evaluation -f/up as outpatient Cardiac assessment prior to EGD/Colonoscopy: -There are no cardiac contraindications provided INR is suitable for endoscopy. He is currently euvolemic with no significant ventricular arrhythmias.
[2017-04-11] MEDS ORDERED: BISACODYL 5 MG TABLET.DR (FP) PO ONE ×2 (16:00→20:00)
[2017-04-11] MEDS ORDERED: POLYETHYLENE GLYCOL 3350 255 GM BTL PO ONE (16:00)
--- NOTE | 2017-04-11 17:51 | PN ---
Progress Note, Physician History of Present Illness: Pt seen and examined at bedside. He is awake and alert. He denies shortness of breath today. - Current Medication List Current Medications: Active Medications Acetaminophen (Tylenol -) 650 mg PO Q6H PRN PRN Reason: PAIN Last Admin: 04/10/17 14:53 Dose: 650 mg Amlodipine Besylate (Norvasc -) 2.5 mg PO DAILY [facility] Last Admin: 04/11/17 09:05 Dose: 2.5 mg Atorvastatin Calcium (Lipitor -) 20 mg PO HS [facility] Last Admin: 04/10/17 21:51 Dose: 20 mg Bisacodyl (Dulcolax -) 10 mg PO ONCE ONE Stop: 04/11/17 20:01 Cyanocobalamin (Vitamin B12 Injection -) 1,000 mcg IM Q7D@1000 [facility] Last Admin: 04/10/17 18:28 Dose: 1,000 mcg Furosemide (Lasix -) 40 mg PO DAILY [facility] Last Admin: 04/11/17 09:06 Dose: 40 mg Glimepiride (Amaryl -) 4 mg PO DAILY@0700 [facility] Last Admin: 04/11/17 06:15 Dose: Not Given Insulin Aspart (Novolog Vial Sliding Scale -) 1 vial SQ ACHS [facility] PRN Reason: Protocol Last Admin: 04/11/17 16:15 Dose: Not Given Metoprolol Succinate (Toprol Xl -) 12.5 mg PO DAILY [facility] Last Admin: 04/11/17 09:05 Dose: 12.5 mg Mineral Oil (Fleet Mineral Oil Rectal Enema -) 133 ml [place] ONCE ONE Stop: 04/12/17 06:01 Non-Formulary Medication (Linaclotide [Linzess]) 145 mcg PO DAILY [facility] Ranitidine HCl (Zantac -) 150 mg PO BID [facility] Last Admin: 04/11/17 09:06 Dose: 150 mg Ranolazine (Ranexa -) 500 mg PO BID [facility] Last Admin: 04/11/17 09:06 Dose: 500 mg Sitagliptin Phosphate (Januvia -) 25 mg PO DAILY@0700 [facility] Last Admin: 04/11/17 06:15 Dose: Not Given Tamsulosin HCl (Flomax -) 0.4 mg PO DAILY@0830 [facility] Last Admin: 04/11/17 09:05 Dose: 0.4 mg - Objective Vital Signs: Vital Signs Temperature 97.6 F 04/11/17 15:03 Pulse Rate 64 04/11/17 15:03 Respiratory Rate 18 04/11/17 15:03 Blood Pressure 107/65 04/11/17 15:03 O2 Sat by Pulse Oximetry (%) 99 04/11/17 08:28 Constitutional: Yes: Calm Eyes: Yes: Conjunctiva Clear HENT: Yes: Atraumatic Neck: Yes: Supple Cardiovascular: Yes: S1, S2 Respiratory: Yes: CTA Bilaterally Gastrointestinal: Yes: Soft Genitourinary: Yes: WNL Musculoskeletal: Yes: WNL Edema: Yes Edema: LLE: 1+, RLE: 1+ Neurological: Yes: Oriented Psychiatric: Yes: Oriented Labs: CBC, BMP 04/11/17 05:10 04/11/17 05:10 INR, PTT INR 1.75 (0.82-1.09) H D 04/11/17 05:50 Problem List - Problems (1) Anemia Code(s): D64.9 - ANEMIA, UNSPECIFIED (2) Chest pain Code(s): R07.9 - CHEST PAIN, UNSPECIFIED (3) Dyspnea Code(s): R06.00 - DYSPNEA, UNSPECIFIED (4) CAD (coronary artery disease) Code(s): I25.10 - ATHSCL HEART DISEASE OF [place] CORONARY ARTERY W/O ANG PCTRS Qualifiers: Coronary Disease-Associated Artery/Lesion type: unspecified vessel or lesion type [place] vs. transplanted heart: unspecified whether [place] or transplanted heart Associated angina: without angina Qualified Code(s ): I25.10 - Atherosclerotic heart disease of [place] coronary artery without angina pectoris (5) Chronic kidney disease Code(s): N18.9 - CHRONIC KIDNEY DISEASE, UNSPECIFIED Qualifiers: Chronic kidney disease stage: unspecified stage Qualified Code(s): N18.9 - Chronic kidney disease, unspecified Assessment/Plan Current Medications Generic Name Dose Route Start Last Admin Trade Name Freq PRN Reason Stop Dose Admin Acetaminophen 650 mg 04/10/17 13:13 04/10/17 14:53 Tylenol - PO 650 mg Q6H PRN Administration PAIN Amlodipine Besylate 2.5 mg 04/10/17 10:00 04/11/17 09:05 Norvasc - PO 2.5 mg DAILY [facility] Administration Atorvastatin Calcium 20 mg 04/10/17 22:00 04/10/17 21:51 Lipitor - PO 20 mg HS [facility] Administration Bisacodyl 10 mg 04/11/17 20:00 Dulcolax - PO 04/11/17 20:01 ONCE ONE Cyanocobalamin 1,000 mcg 04/10/17 18:00 04/10/17 18:28 Vitamin B12 Injection - IM 1,000 mcg Q7D@1000 [facility] Administration Furosemide 40 mg 04/10/17 10:00 04/11/17 09:06 Lasix - PO 40 mg DAILY [facility] Administration Glimepiride 4 mg 04/10/17 07:15 04/11/17 06:15 Amaryl - PO Not Given DAILY@0700 [facility] Insulin Aspart 1 vial 04/10/17 07:00 04/11/17 16:15 Novolog Vial Sliding Scale - SQ Not Given ACHS [facility] Protocol Metoprolol Succinate 12.5 mg 04/10/17 10:00 04/11/17 09:05 Toprol Xl - PO 12.5 mg DAILY [facility] Administration Mineral Oil 133 ml 04/12/17 06:00 Fleet Mineral Oil Rectal Enema - [place] 04/12/17 06:01 ONCE ONE Non-Formulary Medication 145 mcg 04/10/17 10:00 Linaclotide [Linzess] PO DAILY [facility] Ranitidine HCl 150 mg 04/10/17 10:00 04/11/17 09:06 Zantac - PO 150 mg BID [facility] Administration Ranolazine 500 mg 04/10/17 10:00 04/11/17 09:06 Ranexa - PO 500 mg BID [facility] Administration Sitagliptin Phosphate 25 mg 04/10/17 07:15 04/11/17 06:15 Januvia - PO Not Given DAILY@0700 [facility] Tamsulosin HCl 0.4 mg 04/10/17 08:30 04/11/17 09:05 Flomax - PO 0.4 mg DAILY@0830 [facility] Administration IMPRESSION 1. CKD 2. CHF 3. s/p pacemaker placement 4. anemia 5. dm 6. htn 7. hyperlipidemia Plan - renal function is stable - follow endoscopy result - cardio input appreciated - cont with lasix and monitor volumes status - avoid nephrotoxins Dr Rosario
[2017-04-11] MEDS: ATORVASTATIN CA 20 MG TABLET (FP) PO SCH (23:00)
--- NOTE | 2017-04-11 23:37 | PN ---
Progress Note, Physician History of Present Illness: No new complaints - Current Medication List Current Medications: Active Medications Acetaminophen (Tylenol -) 650 mg PO Q6H PRN PRN Reason: PAIN Last Admin: 04/10/17 14:53 Dose: 650 mg Amlodipine Besylate (Norvasc -) 2.5 mg PO DAILY [facility] Last Admin: 04/11/17 09:05 Dose: 2.5 mg Atorvastatin Calcium (Lipitor -) 20 mg PO HS [facility] Last Admin: 04/11/17 23:00 Dose: 20 mg Cyanocobalamin (Vitamin B12 Injection -) 1,000 mcg IM Q7D@1000 [facility] Last Admin: 04/10/17 18:28 Dose: 1,000 mcg Furosemide (Lasix -) 40 mg PO DAILY [facility] Last Admin: 04/11/17 09:06 Dose: 40 mg Glimepiride (Amaryl -) 4 mg PO DAILY@0700 [facility] Last Admin: 04/11/17 06:15 Dose: Not Given Insulin Aspart (Novolog Vial Sliding Scale -) 1 vial SQ ACHS [facility] PRN Reason: Protocol Last Admin: 04/11/17 22:54 Dose: Not Given Metoprolol Succinate (Toprol Xl -) 12.5 mg PO DAILY [facility] Last Admin: 04/11/17 09:05 Dose: 12.5 mg Mineral Oil (Fleet Mineral Oil Rectal Enema -) 133 ml [place] ONCE ONE Stop: 04/12/17 06:01 Non-Formulary Medication (Linaclotide [Linzess]) 145 mcg PO DAILY [facility] Ranitidine HCl (Zantac -) 150 mg PO BID [facility] Last Admin: 04/11/17 23:00 Dose: 150 mg Ranolazine (Ranexa -) 500 mg PO BID [facility] Last Admin: 04/11/17 23:00 Dose: 500 mg Sitagliptin Phosphate (Januvia -) 25 mg PO DAILY@0700 [facility] Last Admin: 04/11/17 06:15 Dose: Not Given Tamsulosin HCl (Flomax -) 0.4 mg PO DAILY@0830 [facility] Last Admin: 04/11/17 09:05 Dose: 0.4 mg - Objective Vital Signs: Vital Signs Temperature 97.0 F L 04/11/17 17:00 Pulse Rate 64 04/11/17 17:00 Respiratory Rate 20 04/11/17 17:00 Blood Pressure 122/76 04/11/17 17:00 O2 Sat by Pulse Oximetry (%) 99 04/11/17 08:28 Cardiovascular: Yes: WNL, Regular Rate and Rhythm Respiratory: Yes: WNL, Regular, CTA Bilaterally Gastrointestinal: Yes: WNL, Normal Bowel Sounds, Soft Labs: CBC, BMP 04/11/17 05:10 04/11/17 05:10 INR, PTT INR 1.75 (0.82-1.09) H D 04/11/17 05:50 Problem List - Problems (1) Acute exacerbation of CHF (congestive heart failure) Code(s): I50.9 - HEART FAILURE, UNSPECIFIED (2) Anemia Code(s): D64.9 - ANEMIA, UNSPECIFIED (3) Acute on chronic renal failure Code(s): N17.9 - ACUTE KIDNEY FAILURE, UNSPECIFIED N18.9 - CHRONIC KIDNEY DISEASE, UNSPECIFIED (4) BPH (benign prostatic hyperplasia) Code(s): N40.0 - BENIGN PROSTATIC HYPERPLASIA WITHOUT LOWER URINRY TRACT SYMP (5) Diabetes mellitus type II, controlled Code(s): E11.9 - TYPE 2 DIABETES MELLITUS WITHOUT COMPLICATIONS (6) CAD (coronary artery disease) Code(s): I25.10 - ATHSCL HEART DISEASE OF [place] CORONARY ARTERY W/O ANG PCTRS Qualifiers: Coronary Disease-Associated Artery/Lesion type: unspecified vessel or lesion type [place] vs. transplanted heart: unspecified whether [place] or transplanted heart Associated angina: without angina Qualified Code(s ): I25.10 - Atherosclerotic heart disease of [place] coronary artery without angina pectoris (7) Hypertension Code(s): I10 - ESSENTIAL (PRIMARY) HYPERTENSION Qualifiers: Hypertension type: essential hypertension Qualified Code(s): I10 - Essential (primary) hypertension (8) HLD (hyperlipidemia) Code(s): E78.5 - HYPERLIPIDEMIA, UNSPECIFIED Qualifiers: Hyperlipidemia type: mixed hyperlipidemia Qualified Code(s): E78.2 - Mixed hyperlipidemia
[2017-04-12] MEDS: ACETAMINOPHEN 325 MG TABLET (FP) PO PRN (02:10)
[2017-04-12] MEDS ORDERED: MINERAL OIL ENEMA 133 ML ENEMA PR ONE (06:00)
[2017-04-12] MEDS: sitaGLIPtin PHOSPHATE 25 MG TABLET (FP) PO SCH (06:01)
[2017-04-12] MEDS: GLIMEPIRIDE 4 MG TABLET (FP) PO SCH (06:01)
[2017-04-12] MEDS: INSULIN SLIDING SCALE (NOVOLOG) 1 VIAL SQ SCH ×4 (06:02→22:20)
[2017-04-12] MEDS ORDERED: PROPOFOL 20 ML ONE ×3 (07:51)
[2017-04-12] MEDS ORDERED: LIDOCAINE HCL/PF 2% SDV 5ML VIAL ONE (07:51)
--- NOTE | 2017-04-12 08:56 | PN ---
Progress Note, Physician - Current Medication List Current Medications: Active Medications Acetaminophen (Tylenol -) 650 mg PO Q6H PRN PRN Reason: PAIN Last Admin: 04/12/17 02:10 Dose: 650 mg Amlodipine Besylate (Norvasc -) 2.5 mg PO DAILY [facility] Last Admin: 04/11/17 09:05 Dose: 2.5 mg Atorvastatin Calcium (Lipitor -) 20 mg PO HS [facility] Last Admin: 04/11/17 23:00 Dose: 20 mg Cyanocobalamin (Vitamin B12 Injection -) 1,000 mcg IM Q7D@1000 [facility] Last Admin: 04/10/17 18:28 Dose: 1,000 mcg Furosemide (Lasix -) 40 mg PO DAILY [facility] Last Admin: 04/11/17 09:06 Dose: 40 mg Glimepiride (Amaryl -) 4 mg PO DAILY@0700 [facility] Last Admin: 04/12/17 06:01 Dose: Not Given Insulin Aspart (Novolog Vial Sliding Scale -) 1 vial SQ ACHS [facility] PRN Reason: Protocol Last Admin: 04/12/17 06:02 Dose: Not Given Metoprolol Succinate (Toprol Xl -) 12.5 mg PO DAILY [facility] Last Admin: 04/11/17 09:05 Dose: 12.5 mg Non-Formulary Medication (Linaclotide [Linzess]) 145 mcg PO DAILY [facility] Ranitidine HCl (Zantac -) 150 mg PO BID [facility] Last Admin: 04/11/17 23:00 Dose: 150 mg Ranolazine (Ranexa -) 500 mg PO BID [facility] Last Admin: 04/11/17 23:00 Dose: 500 mg Sitagliptin Phosphate (Januvia -) 25 mg PO DAILY@0700 [facility] Last Admin: 04/12/17 06:01 Dose: Not Given Tamsulosin HCl (Flomax -) 0.4 mg PO DAILY@0830 [facility] Last Admin: 04/11/17 09:05 Dose: 0.4 mg - Objective Vital Signs: Vital Signs Temperature 98.2 F 04/12/17 05:31 Pulse Rate 70 04/12/17 05:31 Respiratory Rate 20 04/12/17 05:31 Blood Pressure 103/44 04/12/17 05:31 O2 Sat by Pulse Oximetry (%) 100 04/11/17 21:00 Labs: CBC, BMP 04/11/17 05:10 06/14/17 05:10 INR, PTT INR 1.75 (0.82-1.09) H D 04/11/17 05:50 Laboratory Tests 04/11/17 05:10 WBC 9.8 Hgb 8.5 L Hct 26.3 L Plt Count 231
[2017-04-12] MEDS: METOPROLOL SUCCINATE 25 MG TAB.SR.24H (FP) PO SCH (09:58)
[2017-04-12] MEDS: RANOLAZINE E.R. 500 MG TABLET (FP) PO SCH ×2 (09:58→22:20)
[2017-04-12] MEDS: TAMSULOSIN HCL 0.4 MG CAP.ER.24H (FP) PO SCH (09:58)
[2017-04-12] MEDS: RANITIDINE HCL 150 MG TABLET (FP) PO SCH ×2 (09:58→22:20)
[2017-04-12] MEDS: FUROSEMIDE 40 MG TABLET (FP) PO SCH (09:58)
[2017-04-12] MEDS: amLODIPine BESYLATE 2.5 MG TABLET (FP) PO SCH (09:58)
--- NOTE | 2017-04-12 10:29 | PN ---
Progress Note, Physician History of Present Illness: seen and examined this am in nad. s/p EGD/Colonoscopy. awake, alert, no complaints. - Current Medication List Current Medications: Active Medications Acetaminophen (Tylenol -) 650 mg PO Q6H PRN PRN Reason: PAIN Last Admin: 04/12/17 02:10 Dose: 650 mg Amlodipine Besylate (Norvasc -) 2.5 mg PO DAILY [facility] Last Admin: 04/12/17 09:58 Dose: 2.5 mg Atorvastatin Calcium (Lipitor -) 20 mg PO HS [facility] Last Admin: 04/11/17 23:00 Dose: 20 mg Cyanocobalamin (Vitamin B12 Injection -) 1,000 mcg IM Q7D@1000 [facility] Last Admin: 04/10/17 18:28 Dose: 1,000 mcg Furosemide (Lasix -) 40 mg PO DAILY [facility] Last Admin: 04/12/17 09:58 Dose: 40 mg Glimepiride (Amaryl -) 4 mg PO DAILY@0700 [facility] Last Admin: 04/12/17 06:01 Dose: Not Given Insulin Aspart (Novolog Vial Sliding Scale -) 1 vial SQ ACHS [facility] PRN Reason: Protocol Last Admin: 04/12/17 06:02 Dose: Not Given Metoprolol Succinate (Toprol Xl -) 12.5 mg PO DAILY [facility] Last Admin: 04/12/17 09:58 Dose: 12.5 mg Non-Formulary Medication (Linaclotide [Linzess]) 145 mcg PO DAILY [facility] Ranitidine HCl (Zantac -) 150 mg PO BID [facility] Last Admin: 04/12/17 09:58 Dose: 150 mg Ranolazine (Ranexa -) 500 mg PO BID [facility] Last Admin: 04/12/17 09:58 Dose: 500 mg Sitagliptin Phosphate (Januvia -) 25 mg PO DAILY@0700 [facility] Last Admin: 04/12/17 06:01 Dose: Not Given Tamsulosin HCl (Flomax -) 0.4 mg PO DAILY@0830 [facility] Last Admin: 04/12/17 09:58 Dose: 0.4 mg - Objective Vital Signs: Vital Signs Temperature 97.8 F 04/12/17 08:42 Pulse Rate 64 04/12/17 09:12 Respiratory Rate 14 04/12/17 09:12 Blood Pressure 138/71 04/12/17 09:12 O2 Sat by Pulse Oximetry (%) 100 04/12/17 09:12 Constitutional: Yes: No Distress, Calm, Obese Eyes: Yes: Conjunctiva Clear, EOM Intact, PERRL HENT: Yes: Atraumatic, Normocephalic Neck: Yes: Supple, Trachea Midline Cardiovascular: Yes: Pulse Irregular, S1, S2. No: Bradycardia, Tachycardia, Bruit, JVD, Gallop, Murmur, Rub, S3, S4, Varicosities Respiratory: Yes: Regular, CTA Bilaterally. No: Rales, Rhonchi, Wheezes Gastrointestinal: Yes: Normal Bowel Sounds, Soft. No: Distention, Tenderness Musculoskeletal: Yes: WNL Edema: LLE: Trace, RLE: Trace Peripheral Pulses WNL: Yes Peripheral Pulses: Left Doralis Pedis: 2+, Right Dorsalis Pedis: 2+ Integumentary: Yes: WNL Neurological: Yes: Alert, Oriented Psychiatric: Yes: Alert, Oriented Labs: CBC, BMP 04/11/17 05:10 04/11/17 05:10 INR, PTT INR 1.75 (0.82-1.09) H D 04/11/17 05:50 - ....Imaging Chest X-ray: Report Reviewed, Image Reviewed EKG: Report Reviewed, Image Reviewed Other: Report Reviewed, Image Reviewed (tele-AV paced) Assessment/Plan 81 year old man with a history of HTN, HLD, CAD with prior PCI, h/o ischemic cardiomyopathy but normal LV function on most recent evaluations, PAF, CHB s/p PPM, HTN, DMII, HLD, CKD, NSVT, chronic anemia of chronic disease and GI bleed requiring transfusion on prior admissions, admitted with multiple complaints including generalized weakness, velazquez, sob and mild chest discomfort and marked anemia. Gen Weakness/SOB/VELAZQUEZ/Chest pain-likely secondary to severe symptomatic anemia and acute on chronic diastolic chf with known underlying CAD -transfused PRBCs -s/p EGD/Colonoscopy-as per RN on floor there was no source of bleeding seen, f/ up official report -ASA and eliquis on hold at this time, if there is no bleeding suspected would resume AC -Heme input noted. -cont home po Lasix, appears euvolemic on exam Afib-paroxysmal, with recurrent anemia, h/o CHB s/p PPM -hold eliquis until etiology of anemia identified -resume ASA 81mg daily alone when safe to do so -cont home beta jeevan CAD-h/o stents -holding ASA for now as above -cont bblocker and statin PPM-functioning normally on outpatient evaluation -f/up as outpatient Pt is acceptable from a cardiac standpoint for discharge home with a plan for close outpatient follow up.
--- NOTE | 2017-04-12 16:38 | PN ---
Progress Note, Physician History of Present Illness: Pt seen and examined at bedside. He is awake and alert. He denies shortness of breath. - Current Medication List Current Medications: Active Medications Acetaminophen (Tylenol -) 650 mg PO Q6H PRN PRN Reason: PAIN Last Admin: 04/12/17 02:10 Dose: 650 mg Amlodipine Besylate (Norvasc -) 2.5 mg PO DAILY [facility] Last Admin: 04/12/17 09:58 Dose: 2.5 mg Atorvastatin Calcium (Lipitor -) 20 mg PO HS [facility] Last Admin: 04/11/17 23:00 Dose: 20 mg Cyanocobalamin (Vitamin B12 Injection -) 1,000 mcg IM Q7D@1000 [facility] Last Admin: 04/10/17 18:28 Dose: 1,000 mcg Furosemide (Lasix -) 40 mg PO DAILY [facility] Last Admin: 04/12/17 09:58 Dose: 40 mg Glimepiride (Amaryl -) 4 mg PO DAILY@0700 [facility] Last Admin: 04/12/17 06:01 Dose: Not Given Insulin Aspart (Novolog Vial Sliding Scale -) 1 vial SQ ACHS [facility] PRN Reason: Protocol Last Admin: 04/12/17 06:02 Dose: Not Given Metoprolol Succinate (Toprol Xl -) 12.5 mg PO DAILY [facility] Last Admin: 04/12/17 09:58 Dose: 12.5 mg Non-Formulary Medication (Linaclotide [Linzess]) 145 mcg PO DAILY [facility] Ranitidine HCl (Zantac -) 150 mg PO BID [facility] Last Admin: 04/12/17 09:58 Dose: 150 mg Ranolazine (Ranexa -) 500 mg PO BID [facility] Last Admin: 04/12/17 09:58 Dose: 500 mg Sitagliptin Phosphate (Januvia -) 25 mg PO DAILY@0700 [facility] Last Admin: 04/12/17 06:01 Dose: Not Given Tamsulosin HCl (Flomax -) 0.4 mg PO DAILY@0830 [facility] Last Admin: 04/12/17 09:58 Dose: 0.4 mg - Objective Vital Signs: Vital Signs Temperature 97.8 F 04/12/17 15:00 Pulse Rate 64 04/12/17 15:00 Respiratory Rate 18 04/12/17 15:00 Blood Pressure 120/62 04/12/17 15:00 O2 Sat by Pulse Oximetry (%) 100 04/12/17 09:12 Constitutional: Yes: Calm Eyes: Yes: Conjunctiva Clear HENT: Yes: Atraumatic Neck: Yes: Supple Cardiovascular: Yes: S1, S2 Respiratory: Yes: Regular Gastrointestinal: Yes: Soft Genitourinary: Yes: WNL Edema: Yes Edema: LLE: Trace, RLE: Trace Neurological: Yes: Oriented Psychiatric: Yes: Oriented Labs: CBC, BMP 04/11/17 05:10 04/11/17 05:10 INR, PTT INR 1.75 (0.82-1.09) H D 04/11/17 05:50 Problem List - Problems (1) Anemia Code(s): D64.9 - ANEMIA, UNSPECIFIED (2) Chest pain Code(s): R07.9 - CHEST PAIN, UNSPECIFIED (3) Dyspnea Code(s): R06.00 - DYSPNEA, UNSPECIFIED (4) CAD (coronary artery disease) Code(s): I25.10 - ATHSCL HEART DISEASE OF [place] CORONARY ARTERY W/O ANG PCTRS Qualifiers: Coronary Disease-Associated Artery/Lesion type: unspecified vessel or lesion type [place] vs. transplanted heart: unspecified whether [place] or transplanted heart Associated angina: without angina Qualified Code(s ): I25.10 - Atherosclerotic heart disease of [place] coronary artery without angina pectoris (5) Chronic kidney disease Code(s): N18.9 - CHRONIC KIDNEY DISEASE, UNSPECIFIED Qualifiers: Chronic kidney disease stage: unspecified stage Qualified Code(s): N18.9 - Chronic kidney disease, unspecified Assessment/Plan Current Medications Generic Name Dose Route Start Last Admin Trade Name [place] PRN Reason Stop Dose Admin Acetaminophen 650 mg 04/10/17 13:13 04/12/17 02:10 Tylenol - PO 650 mg Q6H PRN Administration PAIN Amlodipine Besylate 2.5 mg 04/10/17 10:00 04/12/17 09:58 Norvasc - PO 2.5 mg DAILY [facility] Administration Atorvastatin Calcium 20 mg 04/10/17 22:00 04/11/17 23:00 Lipitor - PO 20 mg HS [facility] Administration Cyanocobalamin 1,000 mcg 04/10/17 18:00 04/10/17 18:28 Vitamin B12 Injection - IM 1,000 mcg Q7D@1000 [facility] Administration Furosemide 40 mg 06/13/17 10:00 04/12/17 09:58 Lasix - PO 40 mg DAILY [facility] Administration Glimepiride 4 mg 04/10/17 07:15 04/12/17 06:01 Amaryl - PO Not Given DAILY@0700 [facility] Insulin Aspart 1 vial 04/10/17 07:00 04/12/17 06:02 Novolog Vial Sliding Scale - SQ Not Given ACHS [facility] Protocol Metoprolol Succinate 12.5 mg 04/10/17 10:00 04/12/17 09:58 Toprol Xl - PO 12.5 mg DAILY [facility] Administration Non-Formulary Medication 145 mcg 04/10/17 10:00 Linaclotide [Linzess] PO DAILY [facility] Ranitidine HCl 150 mg 04/10/17 10:00 04/12/17 09:58 Zantac - PO 150 mg BID [facility] Administration Ranolazine 500 mg 04/10/17 10:00 04/12/17 09:58 Ranexa - PO 500 mg BID [facility] Administration Sitagliptin Phosphate 25 mg 04/10/17 07:15 04/12/17 06:01 Januvia - PO Not Given DAILY@0700 [facility] Tamsulosin HCl 0.4 mg 04/10/17 08:30 04/12/17 09:58 Flomax - PO 0.4 mg DAILY@0830 [facility] Administration IMPRESSION 1. CKD 2. CHF 3. s/p pacemaker placement 4. anemia 5. dm 6. htn 7. hyperlipidemia Plan - no new labs - renal function is actually near baseline - can see pt in office - cont with lasix - cardiology input appreciated - avoid nephrotoxins Dr Rosario
[2017-04-12] MEDS: ATORVASTATIN CA 20 MG TABLET (FP) PO SCH (22:20)
--- NOTE | 2017-04-12 23:09 | PN ---
Progress Note, Physician - Current Medication List Current Medications: Active Medications Acetaminophen (Tylenol -) 650 mg PO Q6H PRN PRN Reason: PAIN Last Admin: 04/12/17 02:10 Dose: 650 mg Amlodipine Besylate (Norvasc -) 2.5 mg PO DAILY [facility] Last Admin: 04/12/17 09:58 Dose: 2.5 mg Atorvastatin Calcium (Lipitor -) 20 mg PO HS [facility] Last Admin: 04/12/17 22:20 Dose: 20 mg Cyanocobalamin (Vitamin B12 Injection -) 1,000 mcg IM Q7D@1000 [facility] Last Admin: 04/10/17 18:28 Dose: 1,000 mcg Furosemide (Lasix -) 40 mg PO DAILY [facility] Last Admin: 04/12/17 09:58 Dose: 40 mg Glimepiride (Amaryl -) 4 mg PO DAILY@0700 [facility] Last Admin: 04/12/17 06:01 Dose: Not Given Insulin Aspart (Novolog Vial Sliding Scale -) 1 vial SQ ACHS [facility] PRN Reason: Protocol Last Admin: 04/12/17 22:20 Dose: Not Given Metoprolol Succinate (Toprol Xl -) 12.5 mg PO DAILY [facility] Last Admin: 04/12/17 09:58 Dose: 12.5 mg Non-Formulary Medication (Linaclotide [Linzess]) 145 mcg PO DAILY [facility] Ranitidine HCl (Zantac -) 150 mg PO BID [facility] Last Admin: 04/12/17 22:20 Dose: 150 mg Ranolazine (Ranexa -) 500 mg PO BID [facility] Last Admin: 04/12/17 22:20 Dose: 500 mg Sitagliptin Phosphate (Januvia -) 25 mg PO DAILY@0700 [facility] Last Admin: 04/12/17 06:01 Dose: Not Given Tamsulosin HCl (Flomax -) 0.4 mg PO DAILY@0830 [facility] Last Admin: 04/12/17 09:58 Dose: 0.4 mg - Objective Vital Signs: Vital Signs Temperature 97.3 F L 04/12/17 17:00 Pulse Rate 60 04/12/17 17:00 Respiratory Rate 20 04/12/17 17:00 Blood Pressure 121/52 04/12/17 17:00 O2 Sat by Pulse Oximetry (%) 100 04/12/17 09:12 Labs: CBC, BMP 04/11/17 05:10 04/11/17 05:10 INR, PTT INR 1.75 (0.82-1.09) H D 04/11/17 05:50 Problem List - Problems (1) Acute exacerbation of CHF (congestive heart failure) Code(s): I50.9 - HEART FAILURE, UNSPECIFIED (2) Anemia Code(s): D64.9 - ANEMIA, UNSPECIFIED (3) Acute on chronic renal failure Code(s): N17.9 - ACUTE KIDNEY FAILURE, UNSPECIFIED N18.9 - CHRONIC KIDNEY DISEASE, UNSPECIFIED (4) BPH (benign prostatic hyperplasia) Code(s): N40.0 - BENIGN PROSTATIC HYPERPLASIA WITHOUT LOWER URINRY TRACT SYMP (5) Diabetes mellitus type II, controlled Code(s): E11.9 - TYPE 2 DIABETES MELLITUS WITHOUT COMPLICATIONS (6) CAD (coronary artery disease) Code(s): I25.10 - ATHSCL HEART DISEASE OF [place] CORONARY ARTERY W/O ANG PCTRS Qualifiers: Coronary Disease-Associated Artery/Lesion type: unspecified vessel or lesion type [place] vs. transplanted heart: unspecified whether [place] or transplanted heart Associated angina: without angina Qualified Code(s ): I25.10 - Atherosclerotic heart disease of [place] coronary artery without angina pectoris (7) Hypertension Code(s): I10 - ESSENTIAL (PRIMARY) HYPERTENSION Qualifiers: Hypertension type: essential hypertension Qualified Code(s): I10 - Essential (primary) hypertension (8) HLD (hyperlipidemia) Code(s): E78.5 - HYPERLIPIDEMIA, UNSPECIFIED Qualifiers: Hyperlipidemia type: mixed hyperlipidemia Qualified Code(s): E78.2 - Mixed hyperlipidemia
[2017-04-13] MEDS: sitaGLIPtin PHOSPHATE 25 MG TABLET (FP) PO SCH (06:44)
[2017-04-13] MEDS: GLIMEPIRIDE 4 MG TABLET (FP) PO SCH (06:45)
[2017-04-13] MEDS: INSULIN SLIDING SCALE (NOVOLOG) 1 VIAL SQ SCH ×2 (06:45→11:23)
--- NOTE | 2017-04-13 09:08 | PN ---
Progress Note, Physician Chief Complaint: no distress EGD and c-scope without source of bleeding - Current Medication List Current Medications: Active Medications Acetaminophen (Tylenol -) 650 mg PO Q6H PRN PRN Reason: PAIN Last Admin: 04/12/17 02:10 Dose: 650 mg Amlodipine Besylate (Norvasc -) 2.5 mg PO DAILY [facility] Last Admin: 04/12/17 09:58 Dose: 2.5 mg Atorvastatin Calcium (Lipitor -) 20 mg PO HS [facility] Last Admin: 04/12/17 22:20 Dose: 20 mg Cyanocobalamin (Vitamin B12 Injection -) 1,000 mcg IM Q7D@1000 [facility] Last Admin: 04/10/17 18:28 Dose: 1,000 mcg Furosemide (Lasix -) 40 mg PO DAILY [facility] Last Admin: 04/12/17 09:58 Dose: 40 mg Glimepiride (Amaryl -) 4 mg PO DAILY@0700 [facility] Last Admin: 04/13/17 06:45 Dose: 4 mg Insulin Aspart (Novolog Vial Sliding Scale -) 1 vial SQ ACHS [facility] PRN Reason: Protocol Last Admin: 04/13/17 06:45 Dose: Not Given Metoprolol Succinate (Toprol Xl -) 12.5 mg PO DAILY [facility] Last Admin: 04/12/17 09:58 Dose: 12.5 mg Non-Formulary Medication (Linaclotide [Linzess]) 145 mcg PO DAILY [facility] Ranitidine HCl (Zantac -) 150 mg PO BID [facility] Last Admin: 04/12/17 22:20 Dose: 150 mg Ranolazine (Ranexa -) 500 mg PO BID [facility] Last Admin: 04/12/17 22:20 Dose: 500 mg Sitagliptin Phosphate (Januvia -) 25 mg PO DAILY@0700 [facility] Last Admin: 04/13/17 06:44 Dose: 25 mg Tamsulosin HCl (Flomax -) 0.4 mg PO DAILY@0830 [facility] Last Admin: 04/12/17 09:58 Dose: 0.4 mg - Objective Vital Signs: Vital Signs Temperature 98.4 F 04/13/17 06:00 Pulse Rate 66 04/13/17 06:00 Respiratory Rate 20 04/13/17 06:00 Blood Pressure 108/48 04/13/17 06:00 O2 Sat by Pulse Oximetry (%) 96 04/12/17 21:00 Constitutional: Yes: No Distress Eyes: Yes: Conjunctiva Clear Cardiovascular: Yes: Regular Rate and Rhythm Respiratory: Yes: CTA Bilaterally Gastrointestinal: Yes: Soft (non-tender) Edema: No Neurological: Yes: Alert, Oriented Labs: CBC, BMP 04/11/17 05:10 04/11/17 05:10 INR, PTT INR 1.75 (0.82-1.09) H D 04/11/17 05:50 - ....Imaging EKG: Image Reviewed (AF, paced intermittently. 3 beats NSVT) Assessment/Plan Chronic Anemia: no source on EGD/C-scope AF s/p PPM CAD REC: To resume anticoagulation for AF with careful outpatient monitoring CBC. Should f/u with PMD next week.
[2017-04-13] MEDS: RANITIDINE HCL 150 MG TABLET (FP) PO SCH (09:13)
[2017-04-13] MEDS: TAMSULOSIN HCL 0.4 MG CAP.ER.24H (FP) PO SCH (09:13)
[2017-04-13] MEDS: FUROSEMIDE 40 MG TABLET (FP) PO SCH (09:13)
[2017-04-13] MEDS: RANOLAZINE E.R. 500 MG TABLET (FP) PO SCH (09:13)
[2017-04-13] MEDS: amLODIPine BESYLATE 2.5 MG TABLET (FP) PO SCH (09:13)
[2017-04-13] MEDS: METOPROLOL SUCCINATE 25 MG TAB.SR.24H (FP) PO SCH (09:14)
[2017-04-13 09:48] VITALS: BP 132/54; PULSE 68; TEMP 97.8
[2017-04-13 09:54] LABS: ALBUMIN 3.4 g/dl (3.4-5.0); ANION GAP 6 (8-16); BILIRUBIN,TOTAL 0.5 mg/dL (0.2-1.0); CALCIUM 9.1 mg/dL (8.5-10.1); CO2 29 mmol/L (21-32); CREATININE 2.9 mg/dL (0.7-1.3); GLUCOSE,RANDOM 158 mg/dL (74-106); SGOT/AST 19 U/L (15-37); TOT PROT 7.5 g/dl (6.4-8.2)
[2017-04-13 09:57] LABS: ALK PHOS 70 U/L (45-117); SGPT/ALT 19 U/L (12-78)
[2017-04-13] MEDS ORDERED: APIXABAN 2.5 MG TABLET PO SCH (10:00)
[2017-04-13 10:32] LABS: BASOPHIL 0.4 % (0-2.0); EOSINOPHIL 1.5 % (0-4.5); MCH 26.8 pg (25.7-33.7); MCHC 31.6 g/dl (32.0-35.9); MEAN CELL VOLUME 84.8 fl (80-96); MEAN PLT VOLUME 7.7 fl (7.5-11.1); NEUTROPHILS 72.1 % (42.8-82.8); PLATELET COUNT 260 K/MM3 (134-434); RDW 17.2 % (11.9-15.9); WHITE BLOOD COUNT 9.4 K/mm3 (4.0-10.0)
== END 2017-04-13 12:15 | disposition home or self-care (01) | DRG 291 ==
LOC: JER 08:17 → JERBED 10:27 → J4W 21:43
PROVIDERS: ADMIT Internal Medicine; ATTEND Internal Medicine
PROC: 30233N1 Transfusion of Nonautologous Red Blood Cells into Peripheral Vein, Percutaneous Approach (ICD-10-PCS; 2017-04-09)
PROC: 0DJD8ZZ Inspection of Lower Intestinal Tract, Via Natural or Artificial Opening Endoscopic (ICD-10-PCS; 2017-04-12)
PROC: 0DJ08ZZ Inspection of Upper Intestinal Tract, Via Natural or Artificial Opening Endoscopic (ICD-10-PCS; principal; 2017-04-12 08:00)
DX: I13.0 Hypertensive heart and chronic kidney disease with heart failure and stage 1 through stage 4 chronic kidney disease, or unspecified chronic kidney disease (principal); I50.33 Acute on chronic diastolic (congestive) heart failure; I47.1 Supraventricular tachycardia; N17.9 Acute kidney failure, unspecified; E87.6 Hypokalemia; E78.5 Hyperlipidemia, unspecified; I25.10 Atherosclerotic heart disease of native coronary artery without angina pectoris; M10.9 Gout, unspecified; K21.0 Gastro-esophageal reflux disease with esophagitis; E11.9 Type 2 diabetes mellitus without complications; D64.9 Anemia, unspecified; M19.90 Unspecified osteoarthritis, unspecified site; I48.0 Paroxysmal atrial fibrillation; K59.00 Constipation, unspecified; N40.0 Benign prostatic hyperplasia without lower urinary tract symptoms; I25.5 Ischemic cardiomyopathy; D63.8 Anemia in other chronic diseases classified elsewhere; E11.22 Type 2 diabetes mellitus with diabetic chronic kidney disease; N18.9 Chronic kidney disease, unspecified; Z95.5 Presence of coronary angioplasty implant and graft; Z95.1 Presence of aortocoronary bypass graft; Z95.0 Presence of cardiac pacemaker; Z87.891 Personal history of nicotine dependence
CPT/HCPCS: 36415; 36430; 36511; 71010-TC; 80048; 80053; 81003; 81015; 82550; 82607; 82746; 83615; 83880; 84443; 84484; 85025; 85027; 85044; 85610; 86850; 86900; 86901; 86922; 93005; 93010; 99285-25; P9038; P9058

== ENCOUNTER 2018-04-13 09:50 | Inpatient (IN) | payer MEDICARE, OTHER ==
--- NOTE | 2018-04-13 10:57 | PDOC ---
History of Present Illness - History of Present Illness Initial Comments: The patient is an 82 [place] islander-speaking male, with PMHx of HTN, HLD, CAD(s/p stents), CHB s/p pacemaker, diabetes, CKD, gout, OA, hiatal hernia GERD, anemia of chronic disease, and GI bleed, who presents to the ED with his for 3 days of dizziness and 1 week of back pain. Patient states that his lower back pain began first 1 week ago. He normally ambulates with a cane but has had trouble getting around due to his back pain and dizziness. His dizziness began 3 days ago. It has gotten to the point where he lays in bed all day because of his dizziness. He describes the dizziness as room-spinning, intermittent, worse with movement. He also reports increased tiredness, especially on exertion. His also noted that his arms would twitch very frequently in his sleep in the past few days. He also mentioned that he began a new diabetes medication called Ozempic 0.25 mg last Sunday. He denies fever, chills, nausea, vomiting, diarrhea, chest pain, headaches, dysuria, hematuria. Surgical Hx: cholecystectomy, cardiac stent, pacemaker placement, b/l knee replacement, Social Hx: former smoker PCP: Don Patterson Carpet Cleaning Technician: Jose Brunner 04/13/18 11:09 <Cielo Harden - Last Filed: 04/13/18 13:55> <Rhys Lundberg - Last Filed: 04/13/18 14:41> - General Chief Complaint: Back Pain Stated Complaint: BACK PAIN Time Seen by Provider: 04/13/18 10:07 Past History <Cielo Harden - Last Filed: 04/13/18 13:55> - Past Medical History Anemia: No Asthma: No Cancer: No Cardiac Disorders: Yes (CAD) CVA: No COPD: No CHF: No Dementia: No Diabetes: Yes GI Disorders: No Disorders: Yes (?) HTN: Yes Hypercholesterolemia: Yes Liver Disease: No Seizures: No Thyroid Disease: No - Surgical History Cardiac Surgery: Yes (pacemaker, STENTS) Cholecystectomy: Yes Orthopedic Surgery: (Yes, bilateral knee replacement) - Suicide/Smoking/Psychosocial Hx Smoking Status: No Smoking History: Never smoked Have you smoked in the past 12 months: No Number of Cigarettes Smoked Daily: 0 If you are a former smoker, when did you quit?: "long time ago" Hx Alcohol Use: No Drug/Substance Use Hx: No Substance Use Type: None Hx Substance Use Treatment: No <Rhys Lundberg - Last Filed: 04/13/18 14:41> - Past Medical History Allergies/Adverse Reactions: Allergies Allergy/AdvReac Type Severity Reaction Status Date / Time No Known Drug Allergies Allergy Verified 04/13/18 09:55 Home Medications: Ambulatory Orders Atorvastatin Ca [Lipitor] 20 mg PO HS 12/01/15 Ranitidine [Zantac -] 150 mg PO BID 12/01/15 Sacubitril/Valsartan [Entresto 24 mg-26 mg Tablet] 1 each PO BID 12/01/15 Tamsulosin HCl 0.4 mg PO DAILY 12/01/15 Linaclotide [Linzess] 145 mcg PO DAILY 11/04/16 Linagliptin [Tradjenta] 5 mg PO DAILY 11/04/16 Meclizine HCl [Antivert -] 25 mg PO DAILY PRN 11/04/16 Metoprolol Succinate [Toprol Xl] 25 mg PO DAILY 02/18/17 Aspirin [[place] Aspirin] 81 mg PO DAILY #30 tablet. 02/23/17 Apixaban [Eliquis -] 2.5 mg PO BID #30 tablet 04/13/17 Allopurinol [Zyloprim -] 100 mg PO DAILY 09/01/17 Ferrous Sulfate 325 mg PO BID 09/01/17 Pregabalin [Lyrica -] 50 mg PO TID 09/01/17 Semaglutide [Ozempic] 0.25 mg SQ WEEKLY 04/13/18 Tramadol HCl 50 mg PO DAILY PRN MDD 2 04/13/18 Review of Systems - Review of Systems Comments:: GENERAL/CONSTITUTIONAL: No fever or chills. + increased tiredness HEAD, EYES, EARS, NOSE AND THROAT: No change in vision. No ear pain or discharge. No sore throat. CARDIOVASCULAR: No chest pain or shortness of breath. RESPIRATORY: No cough, wheezing, or hemoptysis. GASTROINTESTINAL: No nausea, vomiting, diarrhea or constipation. GENITOURINARY: No dysuria, frequency, or change in urination. MUSCULOSKELETAL: +lumbar pain. No neck pain. SKIN: No rash NEUROLOGIC: +vertigo. No headache, loss of consciousness, or change in strength/ sensation. ENDOCRINE: No increased thirst. No abnormal weight change. HEMATOLOGIC/LYMPHATIC: No easy bleeding. ALLERGIC/IMMUNOLOGIC: No hives or skin allergy. <Cielo Harden - Last Filed: 04/13/18 13:55> *Physical Exam - Vital Signs Last Vital Signs Temp Pulse Resp BP Pulse Ox 97.6 F 70 18 133/66 99 04/13/18 09:53 04/13/18 09:53 04/13/18 09:53 04/13/18 09:53 04/13/18 09:53 - Physical Exam Comments: GENERAL: Awake, alert, and fully oriented, in no acute distress HEAD: No signs of trauma EYES: PERRLA, EOMI, sclera anicteric, conjunctiva clear ENT: Auricles normal inspection, hearing grossly normal, nares patent. Moist mucosa LUNGS: Breath sounds equal, clear to auscultation bilaterally. No wheezes, and no crackles HEART: Pacemaker left upper chest. Regular rate and rhythm, normal S1 and S2, no murmurs, rubs or gallops ABDOMEN: Soft, obese, nontender, normoactive bowel sounds. No guarding, no rebound. No masses EXTREMITIES: Normal range of motion, trace pitting edema of lower extremities. No clubbing or cyanosis. No cords, erythema, or tenderness NEUROLOGICAL: Cranial nerves II through XII grossly intact. 5/5 strength bilaterally. No pronator drift. Normal speech. Normal finger to nose, rapid alternating, heel to jc. Of note, patient sat up quickly and became dizzy. SKIN: Warm, Dry, normal turgor, no rashes or lesions noted. 04/13/18 11:12 <Cielo Harden - Last Filed: 04/13/18 13:55> - Vital Signs Last Vital Signs Temp Pulse Resp BP Pulse Ox 97.6 F 70 18 133/66 99 04/13/18 09:53 04/13/18 09:53 04/13/18 09:53 04/13/18 09:53 04/13/18 09:53 <Rhys Lundberg - Last Filed: 04/13/18 14:41> Heart Score/ECG Review #1 ECG reviewed & interpreted by me at: 11:00 04/13/18 11:21 Ventricular paced rhythm 72 <Rhys Lundberg - Last Filed: 04/13/18 14:41> ED Treatment Course - LABORATORY CBC & Chemistry Diagram: 04/13/18 10:30 04/13/18 12:40 - Consult/PCP Time Called: 13:56 (Awaiting callback from [facility] re: admission) <Cielo Harden - Last Filed: 04/13/18 13:55> - LABORATORY CBC & Chemistry Diagram: 04/13/18 10:30 04/13/18 12:40 - RADIOLOGY Radiology Studies Ordered: Category Date Time Status HEAD CT WITHOUT CONTRAST [CT] Stat CT Scan 04/13/18 10:32 Ordered CHEST X-RAY PORTABLE* [RAD] Stat Radiology 04/13/18 10:32 Ordered SPINE-LUMBAR SACRAL [RAD] Stat Radiology 04/13/18 10:32 Ordered <Rhys Lundberg - Last Filed: 04/13/18 14:41> Medical Decision Making - Medical Decision Making 04/13/18 10:56 A portion of this note was documented by scribe services under my direction. I have reviewed the details of the note, within reason, and agree with the documentation with the following case summary and management plan written by me. Patient treated in the ED. Nursing notes are reviewed and incorporated into the medical decision-making. Vital signs reviewed. Peripheral IV access obtained by the nurse, laboratory studies are drawn and sent, reviewed and interpreted by myself. Vital Signs Temp Pulse Resp BP Pulse Ox 97.6 F 70 18 133/66 99 04/13/18 09:53 04/13/18 09:53 04/13/18 09:53 04/13/18 09:53 04/13/18 09:53 82 year old male with past medical history of hypertension, diabetes, hyperlipidemia, coronary disease status post pacemaker and cardiac stents, congestive heart failure, chronic kidney disease, tricuspid regurgitation presents immersed department for persistent dizziness and lower back pain. Approximately one week ago, the patient is unsure what the etiology was. He had felt lower back pain worse with flexion and extension. Does not know if he had any increased exercise but does walk with a cane. Denies numbness. Does not endorse any urinary or bowel complaints. Patient has also been complaining about a very slow chronic vertiginous-like complaints for 3 days. Patient reports that the symptoms are persistent even at rest but worsened with head movements. Denies nausea or vomiting. Denies headache. Patient's family is concerned as the patient typically laboratory with a cane the nurses can a fall to the side. Denies prior history of strokes. Denies slurring of speech. Regarding the dizziness, we'll need to investigate for potential central causes. We'll obtain a head CT and evaluated. In addition, we'll need to rule out metabolic or infectious etiology. We'll also investigate for cardiac etiology. We'll send labs, troponin. Regards his lower back pain. I suspect this is likely muscle skeletal. We'll obtain a lumbosacral x-ray and reassess. 04/13/18 14:40 CBC, BMP 04/13/18 10:30 04/13/18 12:40 CMP Sodium 141 mmol/L (136-145) 04/13/18 12:40 Potassium 4.2 mmol/L (3.5-5.1) 04/13/18 12:40 Chloride 105 mmol/L (98-107) 04/13/18 12:40 Carbon Dioxide 30 mmol/L (21-32) 04/13/18 12:40 Anion Gap 6 (8-16) L 04/13/18 12:40 BUN 12 mg/dL (7-18) D 04/13/18 12:40 Creatinine 1.0 mg/dL (0.7-1.3) D 04/13/18 12:40 Creat Clearance w eGFR > 60 (>60) 04/13/18 12:40 Random Glucose 81 mg/dL (74-106) D 04/13/18 12:40 Calcium 8.7 mg/dL (8.5-10.1) 04/13/18 12:40 Phosphorus 3.7 mg/dL (2.5-4.9) D 04/13/18 12:40 Magnesium 2.2 mg/dL (1.8-2.4) 04/13/18 12:40 Total Bilirubin 0.5 mg/dL (0.2-1.0) D 04/13/18 12:40 AST 14 U/L (15-37) L 04/13/18 12:40 ALT 21 U/L (12-78) D 04/13/18 12:40 Alkaline Phosphatase 74 U/L (45-117) 04/13/18 12:40 Creatine Kinase 97 IU/L (39-308) 04/13/18 12:40 Troponin I < 0.02 ng/ml (0.00-0.05) D 04/13/18 12:40 Total Protein 7.5 g/dl (6.4-8.2) 04/13/18 12:40 Albumin 3.8 g/dl (3.4-5.0) D 04/13/18 12:40 TSH 0.90 uIU/ml (0.358-3.74) D 04/13/18 12:40 Urine Test Results Urine Color Ltyellow 04/13/18 13:30 Urine Appearance Clear 04/13/18 13:30 Urine pH 6.0 (5.0-8.0) 04/13/18 13:30 Ur Specific [place] 1.011 (1.001-1.035) 04/13/18 13:30 Urine Protein 2+ (NEGATIVE) H 04/13/18 13:30 Urine Glucose (UA) Negative (NEGATIVE) 04/13/18 13:30 Urine Ketones Negative (NEGATIVE) 04/13/18 13:30 Urine Blood 1+ (NEGATIVE) H 04/13/18 13:30 Urine Nitrite Negative (NEGATIVE) 04/13/18 13:30 Urine Bilirubin Negative (<2.0 mg/dL) 04/13/18 13:30 Ur Leukocyte Esterase Negative (NEGATIVE) 04/13/18 13:30 Ur Epithelial Cells Rare /HPF (FEW) 04/13/18 13:30 Labs reviewed. Imaging reviewed. Head CT with no acute findings. However, given risk factors, patient will be admitted for telemetry and observation. Case discussed with Dr. Rick who accepts the patient to her service. Case discussed in detail with admitting physician including history, physical exam and ancillary studies. Admitting physician has assumed care for the patient, will follow all pending diagnostics and will complete the evaluation and treatment. <Rhys Lundberg - Last Filed: 04/13/18 14:41> *DC/Admit/Observation/Transfer - Attestations Scribe Attestion: 04/13/18 11:15 Documentation prepared by Cielo Harden, acting as medical territory manager for Rhys Lundberg MD. <Cielo Harden - Last Filed: 04/13/18 13:55> - Discharge Dispostion Decision to Admit order: Yes <Rhys Lundberg - Last Filed: 04/13/18 14:41> Diagnosis at time of Disposition: Dizziness - Discharge Dispostion Condition at time of disposition: Stable - Referrals Referrals: Don Patterson MD [Primary Care Provider] - - Patient Instructions - Post Discharge Activity
[2018-04-13] MEDS ORDERED: SODIUM CHLORIDE 1,000 ML IV STA (11:05)
[2018-04-13] MEDS ORDERED: ACETAMINOPHEN 1000 MG/100 ML VIAL (NON FORMULARY) IVPB ONE (11:05)
[2018-04-13 11:11] LABS: BASO % 0.2 % (0-2.0); HEMATOCRIT 36.4 % (35.4-49); HEMOGLOBIN 12.4 GM/dL (11.7-16.9); LYMPH % 18.3 % (8-40); MCHC 34.1 g/dl (32.0-35.9); MEAN CELL VOLUME 99.9 fl (80-96); MEAN PLT VOLUME 8.3 fl (7.5-11.1); MONO % 7.7 % (3.8-10.2); NEUT % 72.8 % (42.8-82.8); PLATELET COUNT 194 K/MM3 (134-434); RBC 3.65 M/mm3 (4.00-5.60); WHITE BLOOD COUNT 9.3 K/mm3 (4.0-10.0)
[2018-04-13 11:22] LABS: PROTHROMBIN TIME (PATIENT) 22.6 SEC (9.7-13.0)
[2018-04-13 11:25] LABS: ACTIVATED PTT 37.8 SECONDS (25.2-36.5)
[2018-04-13 13:33] LABS: ALBUMIN 3.8 g/dl (3.4-5.0); ANION GAP 6 (8-16); BILIRUBIN,TOTAL 0.5 mg/dL (0.2-1.0); BLOOD UREA NITROGEN 12 mg/dL (7-18); CALCIUM 8.7 mg/dL (8.5-10.1); CHLORIDE 105 mmol/L (98-107); CO2 30 mmol/L (21-32); GLUCOSE,RANDOM 81 mg/dL (74-106); MAGNESIUM 2.2 mg/dL (1.8-2.4); PHOSPHOROUS 3.7 mg/dL (2.5-4.9); POTASSIUM 4.2 mmol/L (3.5-5.1); SGOT/AST 14 U/L (15-37); SGPT/ALT 21 U/L (12-78); SODIUM 141 mmol/L (136-145); TOT PROT 7.5 g/dl (6.4-8.2)
[2018-04-13 13:42] LABS: ALK PHOS 74 U/L (45-117)
[2018-04-13 14:25] LABS: URINE APPEARANCE CLEAR; URINE BILIRUBIN NEGATIVE (<2.0 mg/dL); URINE COLOR LTYELLOW; URINE GLUCOSE (UA) NEGATIVE (NEGATIVE); URINE KETONE NEGATIVE (NEGATIVE); URINE LEUK ESTERASE NEGATIVE (NEGATIVE); URINE NITRITE NEGATIVE (NEGATIVE); URINE UROBILINOGEN NEGATIVE mg/dL (0.2-1.0)
[2018-04-13 14:26] LABS: URINE PROTEIN 2+ (NEGATIVE)
[2018-04-13 14:38] LABS: EPI CELLS RARE /HPF (FEW)
--- NOTE | 2018-04-13 17:44 | EKG ---
Test Reason : Blood Pressure : / mmHG Vent. Rate : 072 BPM Atrial Rate : 277 BPM P-R Int : 000 ms QRS Dur : 158 ms QT Int : 450 ms P-R-T Axes : 000 -61 099 degrees QTc Int : 492 ms Ventricular-paced rhythm WITH OCCASIONAL PREMATURE VENTRICULAR COMPLEXES ABNORMAL ECG WHEN COMPARED WITH ECG OF 01-SEP-2017 10:03, PREMATURE VENTRICULAR COMPLEXES ARE NOW PRESENT VENT. RATE HAS INCREASED BY 2 BPM Confirmed by CARLO SIMMS, ANGELITO ([id number]) on 04/13/2018 5:44:30 PM Referred By: Confirmed By:ANGELITO MATOS MD
[2018-04-13 17:55] VITALS: BMI 36.8
--- NOTE | 2018-04-14 02:16 | HP ---
Admitting History and Physical - Admission History of Present Illness: Pt is an 82 y/o male w/ PMH significant for HTN, HLD, CAD(s/p stents), CHB s/p pacemaker, diabetes, CKD, gout, OA, hiatal hernia GERD, anemia of chronic disease, and GI bleed. Pt presented ED with vertigo for the past 1 week. Pt also complains of lower back pain for the past 1 week. Pt has been having an unsteady gait due to lower back pain and vertigo. It has gotten to the point where he lays in bed all day because of his dizziness. He describes the dizziness as room-spinning, intermittent, worse with movement. He also reports increased tiredness, especially on exertion. His also noted that his arms would twitch very frequently in his sleep in the past few days. - Past Medical History Cardiovascular: Yes: AFIB, CAD, CHF, HTN, Hyperlipdemia, Other (CHB s/p PPM NSVT ) Gastrointestinal: Yes: Constipation, GERD, GI Bleed Renal/: Yes: BPH, Other (CKD) Musculoskeletal: Yes: Osteoarthritis, Other (Gout) Endocrine: Yes: Diabetes Mellitus - Past Surgical History Past Surgical History: Yes: Cholecystectomy, Permanent Pacemaker - Smoking History Smoking history: Never smoked Have you smoked in the past 12 months: No Aproximately how many cigarettes per day: 0 If you are a former smoker, when did you quit?: "long time ago" - Alcohol/Substance Use Hx Alcohol Use: No - Social History ADL: Independent History of Recent Travel: No Home Medications - Allergies Allergies/Adverse Reactions: Allergies Allergy/AdvReac Type Severity Reaction Status Date / Time No Known Drug Allergies Allergy Verified 04/13/18 09:55 - Home Medications Home Medications: Ambulatory Orders Atorvastatin Ca [Lipitor] 20 mg PO HS 12/01/15 Ranitidine [Zantac -] 150 mg PO BID 12/01/15 Sacubitril/Valsartan [Entresto 24 mg-26 mg Tablet] 1 each PO BID 12/01/15 Tamsulosin HCl 0.4 mg PO DAILY 12/01/15 Linaclotide [Linzess] 145 mcg PO DAILY 11/04/16 Linagliptin [Tradjenta] 5 mg PO DAILY 11/04/16 Meclizine HCl [Antivert -] 25 mg PO DAILY PRN 11/04/16 Metoprolol Succinate [Toprol Xl] 25 mg PO DAILY 02/18/17 Aspirin [[place] Aspirin] 81 mg PO DAILY #30 tablet. 02/23/17 Apixaban [Eliquis -] 2.5 mg PO BID #30 tablet 04/13/17 Allopurinol [Zyloprim -] 100 mg PO DAILY 09/01/17 Ferrous Sulfate 325 mg PO BID 09/01/17 Pregabalin [Lyrica -] 50 mg PO TID 09/01/17 Semaglutide [Ozempic] 0.25 mg SQ WEEKLY 04/13/18 Tramadol HCl 50 mg PO DAILY PRN MDD 2 04/13/18 Family Disease History - Family Disease History Family History: Unremarkable Review of Systems - Review of Systems Constitutional: reports: No Symptoms HENT: reports: No Symptoms Neck: reports: No Symptoms Cardiovascular: reports: No Symptoms Respiratory: reports: No Symptoms Gastrointestinal: reports: No Symptoms Genitourinary: reports: No Symptoms Physical Examination Vital Signs: Vital Signs Temperature 97.2 F L 04/14/18 02:03 Pulse Rate 70 04/14/18 02:03 Respiratory Rate 18 04/14/18 02:03 Blood Pressure 155/69 04/14/18 02:03 O2 Sat by Pulse Oximetry (%) 98 04/13/18 21:00 Constitutional: Yes: Well Nourished HENT: Yes: WNL Neck: Yes: WNL, Supple Cardiovascular: Yes: WNL, Regular Rate and Rhythm Respiratory: Yes: WNL, Regular, CTA Bilaterally Gastrointestinal: Yes: WNL, Normal Bowel Sounds, Soft Extremities: Yes: WNL Edema: No Neurological: Yes: WNL, Alert, Oriented ...Motor Strength: WNL Labs: CBC, BMP 04/13/18 10:30 04/13/18 12:40 Problem List - Problems (1) Vertigo Assessment/Plan: Admit to tele to r/o arrhythmia Check echo/carotid doppler Neuro/cardio consults Code(s): R42 - DIZZINESS AND GIDDINESS (2) Lower back pain Assessment/Plan: P.T. eval Cont lyrica Code(s): M54.5 - LOW BACK PAIN (3) Anemia Assessment/Plan: Due to chronic dz Cont Feso4 Code(s): D64.9 - ANEMIA, UNSPECIFIED (4) BPH (benign prostatic hyperplasia) Assessment/Plan: Cont flomax Code(s): N40.0 - BENIGN PROSTATIC HYPERPLASIA WITHOUT LOWER URINRY TRACT SYMP (5) CAD (coronary artery disease) Code(s): I25.10 - ATHSCL HEART DISEASE OF [place] CORONARY ARTERY W/O ANG PCTRS Qualifiers: Coronary Disease-Associated Artery/Lesion type: unspecified vessel or lesion type [place] vs. transplanted heart: unspecified whether [place] or transplanted heart Associated angina: without angina Qualified Code(s): I25.10 - Atherosclerotic heart disease of [place] coronary artery without angina pectoris (6) Chronic kidney disease Assessment/Plan: Monitor bun/creatinine Code(s): N18.9 - CHRONIC KIDNEY DISEASE, UNSPECIFIED Qualifiers: Chronic kidney disease stage: unspecified stage Qualified Code(s): N18.9 - Chronic kidney disease, unspecified (7) HLD (hyperlipidemia) Assessment/Plan: Cont lipitor Code(s): E78.5 - HYPERLIPIDEMIA, UNSPECIFIED Qualifiers: Hyperlipidemia type: mixed hyperlipidemia Qualified Code(s): E78.2 - Mixed hyperlipidemia (8) Hypertension Code(s): I10 - ESSENTIAL (PRIMARY) HYPERTENSION Qualifiers: Hypertension type: essential hypertension Qualified Code(s): I10 - Essential (primary) hypertension (9) Osteoarthritis Code(s): M19.90 - UNSPECIFIED OSTEOARTHRITIS, UNSPECIFIED SITE (10) PAF (paroxysmal atrial fibrillation) Assessment/Plan: Cont eliquis Heart rate controlled Code(s): I48.0 - PAROXYSMAL ATRIAL FIBRILLATION
[2018-04-14] MEDS: PREGABALIN 50 MG CAPSULE PO SCH ×3 (06:32→22:22)
[2018-04-14] MEDS: INSULIN SLIDING SCALE (NOVOLOG) 1 VIAL SQ SCH ×4 (06:32→22:19)
[2018-04-14] MEDS: sitaGLIPtin PHOSPHATE 100 MG TABLET (FP) PO SCH (06:32)
[2018-04-14 07:50] LABS: BASO % 0.3 % (0-2.0); EOS % 1.3 % (0-4.5); HEMATOCRIT 35.1 % (35.4-49); HEMOGLOBIN 11.9 GM/dL (11.7-16.9); LYMPH % 18.3 % (8-40); MCH 33.8 pg (25.7-33.7); MCHC 33.8 g/dl (32.0-35.9); MEAN CELL VOLUME 99.9 fl (80-96); MEAN PLT VOLUME 8.1 fl (7.5-11.1); MONO % 9.3 % (3.8-10.2); NEUT % 70.8 % (42.8-82.8); PLATELET COUNT 173 K/MM3 (134-434); RBC 3.52 M/mm3 (4.00-5.60); RDW 13.8 % (11.9-15.9); WHITE BLOOD COUNT 8.7 K/mm3 (4.0-10.0)
[2018-04-14 08:19] LABS: CHLORIDE 107 mmol/L (98-107); POTASSIUM 4.7 mmol/L (3.5-5.1); SODIUM 141 mmol/L (136-145)
--- NOTE | 2018-04-14 08:34 | CON.CARD ---
Consult Consult Specialty:: Cardiology - History of Present Illness History of Present Illness: The patient is an 82 [place] islander-speaking male, with PMHx of HTN, HLD, CAD(s/p stents), CHB s/p pacemaker, diabetes, CKD, gout, OA, hiatal hernia GERD, anemia of chronic disease, and GI bleed, who presents to the ED with his for 3 days of dizziness and 1 week of back pain. Patient states that his lower back pain began first 1 week ago. He normally ambulates with a cane but has had trouble getting around due to his back pain and dizziness. His dizziness began 3 days ago. It has gotten to the point where he lays in bed all day because of his dizziness. He describes the dizziness as room-spinning, intermittent, worse with movement. He also reports increased tiredness, especially on exertion. His also noted that his arms would twitch very frequently in his sleep in the past few days. He also mentioned that he began a new diabetes medication called Ozempic 0.25 mg last Sunday. He denies fever, chills, nausea, vomiting, diarrhea, chest pain, headaches, dysuria, hematuria. Surgical Hx: cholecystectomy, cardiac stent, pacemaker placement, b/l knee replacement, Social Hx: former smoker PCP: Don Patterson Coil Winder Hand: Jose Brunner - History Source History Provided By: Patient, Medical Record - Past Medical History Cardio/Vascular: Yes: AFIB, CAD, CHF, HTN, Hyperlipdemia, Other (CHB s/p PPM NSVT) Gastrointestinal: Yes: Constipation, GERD, GI Bleed Renal/: Yes: BPH, Other (CKD) Musculoskeletal: Yes: Osteoarthritis, Other (Gout) Endocrine: Yes: Diabetes Mellitus - Past Surgical History Past Surgical History: Yes: Cholecystectomy, Permanent Pacemaker - Alcohol/Substance Use Hx Alcohol Use: No - Smoking History Smoking history: Never smoked Have you smoked in the past 12 months: No Aproximately how many cigarettes per day: 0 If you are a former smoker, when did you quit?: "long time ago" - Social History ADL: Independent History of Recent Travel: No Home Medications - Allergies Allergies/Adverse Reactions: Allergies Allergy/AdvReac Type Severity Reaction Status Date / Time No Known Drug Allergies Allergy Verified 04/13/18 09:55 - Home Medications Home Medications: Ambulatory Orders Atorvastatin Ca [Lipitor] 20 mg PO HS 12/01/15 Ranitidine [Zantac -] 150 mg PO BID 12/01/15 Sacubitril/Valsartan [Entresto 24 mg-26 mg Tablet] 1 each PO BID 12/01/15 Tamsulosin HCl 0.4 mg PO DAILY 12/01/15 Linaclotide [Linzess] 145 mcg PO DAILY 11/04/16 Linagliptin [Tradjenta] 5 mg PO DAILY 11/04/16 Meclizine HCl [Antivert -] 25 mg PO DAILY PRN 11/04/16 Metoprolol Succinate [Toprol Xl] 25 mg PO DAILY 02/18/17 Aspirin [[place] Aspirin] 81 mg PO DAILY #30 tablet. 02/23/17 Apixaban [Eliquis -] 2.5 mg PO BID #30 tablet 04/13/17 Allopurinol [Zyloprim -] 100 mg PO DAILY 09/01/17 Ferrous Sulfate 325 mg PO BID 09/01/17 Pregabalin [Lyrica -] 50 mg PO TID 09/01/17 Semaglutide [Ozempic] 0.25 mg SQ WEEKLY 04/13/18 Tramadol HCl 50 mg PO DAILY PRN MDD 2 04/13/18 Review of Systems - Review of Systems Constitutional: reports: No Symptoms Eyes: reports: No Symptoms HENT: reports: No Symptoms Neck: reports: No Symptoms Cardiovascular: reports: No Symptoms Gastrointestinal: reports: No Symptoms Genitourinary: reports: No Symptoms Breasts: reports: No Symptoms Reported Musculoskeletal: reports: No Symptoms Integumentary: reports: No Symptoms Neurological: reports: Dizziness Endocrine: reports: No Symptoms Hematology/Lymphatic: reports: No Symptoms Psychiatric: reports: No Symptoms Vital Signs: Vital Signs Temperature 97.5 F L 04/14/18 06:34 Pulse Rate 71 04/14/18 06:34 Respiratory Rate 15 04/14/18 06:34 Blood Pressure 138/72 04/14/18 06:34 O2 Sat by Pulse Oximetry (%) 98 04/13/18 21:00 Constitutional: Yes: Well Nourished, No Distress, Calm Eyes: Yes: WNL, Conjunctiva Clear, EOM Intact HENT: Yes: WNL, Atraumatic, Normocephalic Neck: Yes: WNL, Supple, Trachea Midline Respiratory: Yes: WNL, Regular, CTA Bilaterally Gastrointestinal: Yes: WNL, Normal Bowel Sounds Renal/: Yes: WNL Cardiovascular: Yes: WNL, Regular Rate and Rhythm Musculoskeletal: Yes: WNL Extremities: Yes: WNL Integumentary: Yes: WNL Neurological: Yes: WNL, Alert, Oriented ...Motor Strength: WNL Psychiatric: Yes: WNL, Alert, Oriented - Other Data Labs, Other Data: CBC, BMP 04/14/18 06:30 04/14/18 06:30 INR, PTT INR 2.00 (0.82-1.09) H 04/13/18 10:30 Troponin, BNP 04/13/18 04/13/18 04/14/18 10:30 12:40 08:00 Troponin I Cancelled < 0.02 D Cancelled Troponin, BNP 04/13/18 04/13/18 04/14/18 10:30 12:40 08:00 Troponin I Cancelled < 0.02 D Cancelled Imaging - Results Chest X-ray: Image Reviewed (no i/e s/p PMM) EKG: Image Reviewed (af v paced) Assessment/Plan AF, HTN, HLD, CAD(s/p stents), CHB s/p pacemaker, diabetes, CKD, gout, OA, hiatal hernia GERD, anemia of chronic disease, and GI bleed, who presents to the ED with his for 3 days of dizziness and 1 week of back pain .Plan; telemetry echo obtain records from the office regarding prior w/u coverage for dr. Brunner
[2018-04-14 08:49] LABS: ALBUMIN 2.6 g/dl (3.4-5.0); ALK PHOS 77 U/L (45-117); ANION GAP 6 (8-16); BILIRUBIN,TOTAL 0.4 mg/dL (0.2-1.0); BLOOD UREA NITROGEN 26 mg/dL (7-18); CALCIUM 8.5 mg/dL (8.5-10.1); CO2 28 mmol/L (21-32); CREATININE 2.1 mg/dL (0.7-1.3); GLUCOSE,RANDOM 122 mg/dL (74-106); SGOT/AST 15 U/L (15-37); SGPT/ALT 15 U/L (12-78); TOT PROT 6.2 g/dl (6.4-8.2)
--- NOTE | 2018-04-14 09:13 | CON.NEURO ---
Consult Consult Specialty:: neurology - History of Present Illness Chief Complaint: dizziness History of Present Illness: The patient is an 82 danish-speaking male, with PMHx of HTN, HLD, CAD(s/p stents), CHB s/p pacemaker, diabetes, CKD, gout, OA, hiatal hernia GERD, anemia of chronic disease, and GI bleed, who presents to the ED with his for 3 days of dizziness and 1 week of back pain. Patient states that his lower back pain began first 1 week ago. He normally ambulates with a cane but has had trouble getting around due to his back pain and dizziness. His dizziness began 3 days ago. It has gotten to the point where he lays in bed all day because of his dizziness. He describes the dizziness as room-spinning, intermittent, worse with movement. He also reports increased tiredness, especially on exertion. His also noted that his arms would twitch very frequently in his sleep in the past few days. He also mentioned that he began a new diabetes medication called Ozempic 0.25 mg last Sunday. I saw and examined the pt at the bedside . He states that his dizziness is improved since yesterday.He describes his dizziness as room spinning sensation; he denies any ENT infection lately . He has h/o AF on AC , s/p PPM. Surgical Hx: cholecystectomy, cardiac stent, pacemaker placement, b/l knee replacement, Social Hx: former smoker PCP: Don Patterson Ballaster: Jose Brunner - Past Medical History Cardio/Vascular: Yes: AFIB, CAD, CHF, HTN, Hyperlipdemia, Other (CHB s/p PPM NSVT) Gastrointestinal: Yes: Constipation, GERD, GI Bleed Renal/: Yes: BPH, Other (CKD) Musculoskeletal: Yes: Osteoarthritis, Other (Gout) Endocrine: Yes: Diabetes Mellitus - Past Surgical History Past Surgical History: Yes: Cholecystectomy, Permanent Pacemaker - Alcohol/Substance Use Hx Alcohol Use: No - Smoking History Smoking history: Never smoked Have you smoked in the past 12 months: No Aproximately how many cigarettes per day: 0 If you are a former smoker, when did you quit?: "long time ago" - Social History ADL: Independent History of Recent Travel: No Home Medications - Allergies Allergies/Adverse Reactions: Allergies Allergy/AdvReac Type Severity Reaction Status Date / Time No Known Drug Allergies Allergy Verified 04/13/18 09:55 - Home Medications Home Medications: Ambulatory Orders Atorvastatin Ca [Lipitor] 20 mg PO HS 12/01/15 Ranitidine [Zantac -] 150 mg PO BID 12/01/15 Sacubitril/Valsartan [Entresto 24 mg-26 mg Tablet] 1 each PO BID 12/01/15 Tamsulosin HCl 0.4 mg PO DAILY 12/01/15 Linaclotide [Linzess] 145 mcg PO DAILY 11/04/16 Linagliptin [Tradjenta] 5 mg PO DAILY 11/04/16 Meclizine HCl [Antivert -] 25 mg PO DAILY PRN 11/04/16 Metoprolol Succinate [Toprol Xl] 25 mg PO DAILY 02/18/17 Aspirin [[place] Aspirin] 81 mg PO DAILY #30 tablet. 02/23/17 Apixaban [Eliquis -] 2.5 mg PO BID #30 tablet 04/13/17 Allopurinol [Zyloprim -] 100 mg PO DAILY 09/01/17 Ferrous Sulfate 325 mg PO BID 09/01/17 Pregabalin [Lyrica -] 50 mg PO TID 09/01/17 Semaglutide [Ozempic] 0.25 mg SQ WEEKLY 04/13/18 Tramadol HCl 50 mg PO DAILY PRN MDD 2 04/13/18 Review of Systems - Review of Systems Constitutional: reports: No Symptoms Eyes: reports: No Symptoms HENT: reports: No Symptoms Neck: reports: No Symptoms Cardiovascular: reports: No Symptoms Musculoskeletal: reports: Back Pain Endocrine: reports: No Symptoms Hematology/Lymphatic: reports: No Symptoms Physical Exam-Neuro Vital Signs: Vital Signs Temperature 97.5 F L 04/14/18 06:34 Pulse Rate 71 04/14/18 06:34 Respiratory Rate 15 04/14/18 06:34 Blood Pressure 138/72 04/14/18 06:34 O2 Sat by Pulse Oximetry (%) 98 04/13/18 21:00 Constitutional: Yes: Well Nourished, No Distress, Calm Neck: Yes: Supple Cardiovascular: Yes: WNL Respiratory: Yes: CTA Bilaterally Musculoskeletal: Yes: Back Pain Edema: No Labs: CBC, BMP 04/14/18 06:30 04/14/18 06:30 INR, PTT INR 2.00 (0.82-1.09) H 04/13/18 10:30 - Neuro Exam Level Of Consciousness: Yes: Oriented to Person, Oriented to Place, Oriented to Time Eyes: Yes: PERRLA Speech: WNL Cranial Nerves II-XII Intact: Yes Gag: Present DTR's: 1+ Left Bicep, 1+ Right Bicep, 1+ Left Tricep, 1+ Right Tricep, 1+ Left Brachioradialis, 1+ Right Brachioradialis, 1+ Left Achilles, 1+ Right Achilles Response to light touch: Normal Response to pain prick: Normal Coordination: Normal: Finger to Nose, Heel to Amor Motor Strength: 5/5: Left Arm, Right Arm, Left Leg, Right Leg Gait: Normal Imaging - Results Cat Scan: Image Reviewed (CT WO , no acute finding. CT-LS ; degenerative changes) Problem List - Problems (1) Acute exacerbation of CHF (congestive heart failure) Code(s): I50.9 - HEART FAILURE, UNSPECIFIED (2) Acute on chronic renal failure Code(s): N17.9 - ACUTE KIDNEY FAILURE, UNSPECIFIED; N18.9 - CHRONIC KIDNEY DISEASE, UNSPECIFIED (3) BPH (benign prostatic hyperplasia) Code(s): N40.0 - BENIGN PROSTATIC HYPERPLASIA WITHOUT LOWER URINRY TRACT SYMP Assessment/Plan 82 danish-speaking male, with PMHx of AF on AC,HTN, HLD, CAD(s/p stents), CHB s /p pacemaker, diabetes, CKD, gout, OA, hiatal hernia GERD, anemia of chronic disease, and GI bleed, who presents to the ED with his for 3 days of dizziness and 1 week. He describes his dizziness as positional which is significantly improved ; CTH - ve . Hx and exam suggestive of BPV . -C/w meclizine as needed -Vestibular rehab -carotid u/s -Pt is on AC + asp ( need verification w licensed weigher if necessary to be on duel agent ) -VNG as OP Health maintenance per primary team. Thank you for allowing us to participate in the care of this pt. Daniel Turner MD
[2018-04-14] MEDS: ALLOPURINOL 100 MG TABLET (FP) PO SCH (09:24)
[2018-04-14] MEDS: RANITIDINE HCL 150 MG TABLET (FP) PO SCH ×2 (09:24→22:22)
[2018-04-14] MEDS: APIXABAN 2.5 MG TABLET PO SCH ×2 (09:24→22:22)
[2018-04-14] MEDS: FERROUS SO4 325 MG TABLET (FP) PO SCH ×2 (09:24→17:15)
[2018-04-14] MEDS: metoPROLOL SUCCINATE 25 MG TAB.SR.24H (FP) PO SCH (09:24)
[2018-04-14] MEDS: TAMSULOSIN HCL 0.4 MG CAP.ER.24H (FP) PO SCH (09:24)
[2018-04-14] MEDS: ASPIRIN COATED 81 MG TABLET.EC PO SCH (09:25)
[2018-04-14] MEDS: SACUBITRIL/VALSARTAN 24 MG-26 MG TABLET PO SCH ×2 (12:00→22:25)
[2018-04-14] MEDS: ATORVASTATIN CA 20 MG TABLET (FP) PO SCH (22:22)
[2018-04-15] MEDS: PREGABALIN 50 MG CAPSULE PO SCH ×3 (05:57→21:22)
[2018-04-15] MEDS: INSULIN SLIDING SCALE (NOVOLOG) 1 VIAL SQ SCH ×5 (06:52→21:15)
[2018-04-15] MEDS: sitaGLIPtin PHOSPHATE 100 MG TABLET (FP) PO SCH (06:54)
[2018-04-15] MEDS: LINACLOTIDE 145 MCG PO SCH ×2 (07:00→11:26)
[2018-04-15 07:24] LABS: BASO % 0.3 % (0-2.0); EOS % 1.5 % (0-4.5); HEMATOCRIT 35.2 % (35.4-49); HEMOGLOBIN 11.9 GM/dL (11.7-16.9); LYMPH % 19.4 % (8-40); MCH 33.7 pg (25.7-33.7); MCHC 33.7 g/dl (32.0-35.9); MEAN CELL VOLUME 100.1 fl (80-96); MEAN PLT VOLUME 8.1 fl (7.5-11.1); MONO % 8.8 % (3.8-10.2); PLATELET COUNT 181 K/MM3 (134-434); RBC 3.52 M/mm3 (4.00-5.60); RDW 13.6 % (11.9-15.9); WHITE BLOOD COUNT 9.2 K/mm3 (4.0-10.0)
[2018-04-15 07:40] LABS: ALBUMIN 2.6 g/dl (3.4-5.0); ANION GAP 8 (8-16); BLOOD UREA NITROGEN 26 mg/dL (7-18); CALCIUM 8.6 mg/dL (8.5-10.1); CHLORIDE 107 mmol/L (98-107); CO2 27 mmol/L (21-32); GLUCOSE,RANDOM 101 mg/dL (74-106); POTASSIUM 4.5 mmol/L (3.5-5.1); SGOT/AST 13 U/L (15-37); SGPT/ALT 15 U/L (12-78); SODIUM 142 mmol/L (136-145)
[2018-04-15 07:41] LABS: ALK PHOS 72 U/L (45-117); BILIRUBIN,TOTAL 0.5 mg/dL (0.2-1.0); TOT PROT 6.2 g/dl (6.4-8.2)
--- NOTE | 2018-04-15 07:49 | PN ---
Progress Note (short form) - Note Progress Note: Patient with negative carotid studies. No longer feeling dizzy. No nystagmus noted no examination. We'll sign off. Please have him follow up with us upon discharge so that we can have him undergo VNG testing if needed. [phone]
--- NOTE | 2018-04-15 08:26 | PN ---
Progress Note, Physician Chief Complaint: Denies CP or SOB No further dizziness TELE: Paced, Runs of PAF with aberrancy < 10 beats Short runs NSVT 3 beats - Current Medication List Current Medications: Active Medications Allopurinol (Zyloprim -) 100 mg PO DAILY [facility] Last Admin: 04/14/18 09:24 Dose: 100 mg Apixaban (Eliquis -) 2.5 mg PO BID [facility] Last Admin: 04/14/18 22:22 Dose: 2.5 mg Aspirin (Ecotrin -) 81 mg PO DAILY [facility] Last Admin: 04/14/18 09:25 Dose: 81 mg Atorvastatin Calcium (Lipitor -) 20 mg PO HS [facility] Last Admin: 04/14/18 22:22 Dose: 20 mg Ferrous Sulfate (Feosol -) 325 mg PO BIDWM [facility] Last Admin: 04/14/18 17:15 Dose: 325 mg Insulin Aspart (Novolog Vial Sliding Scale -) 1 vial SQ [facility]; Protocol Last Admin: 04/15/18 06:52 Dose: Not Given Metoprolol Succinate (Toprol Xl -) 25 mg PO DAILY [facility] Last Admin: 04/14/18 09:24 Dose: 25 mg Non-Formulary Medication (Linaclotide [Linzess]) 145 mcg PO DAILY [facility] Pregabalin (Lyrica -) 50 mg PO TID [facility] Last Admin: 04/15/18 05:57 Dose: 50 mg Ranitidine HCl (Zantac -) 150 mg PO BID [facility] Last Admin: 04/14/18 22:22 Dose: 150 mg Sacubitril/Valsartan (Entresto 24 Mg-26 Mg Tablet) 1 tab PO BID [facility] Last Admin: 04/14/18 22:25 Dose: 1 tab Sitagliptin Phosphate (Januvia -) 100 mg PO DAILY@0700 [facility] Last Admin: 04/15/18 06:54 Dose: 100 mg Tamsulosin HCl (Flomax -) 0.4 mg PO DAILY@0830 [facility] Last Admin: 04/14/18 09:24 Dose: 0.4 mg - Objective Vital Signs: Vital Signs Temperature 97.8 F 04/15/18 02:00 Pulse Rate 70 04/15/18 02:00 Respiratory Rate 20 04/15/18 02:00 Blood Pressure 147/82 04/15/18 02:00 O2 Sat by Pulse Oximetry (%) 97 04/14/18 21:00 Constitutional: Yes: No Distress Cardiovascular: Yes: Regular Rate and Rhythm Respiratory: Yes: CTA Bilaterally Gastrointestinal: Yes: Soft Edema: No Neurological: Yes: Alert, Oriented ...Motor Strength: WNL Labs: CBC, BMP 04/15/18 06:00 04/15/18 06:00 INR, PTT INR 2.00 (0.82-1.09) H 04/13/18 10:30 Laboratory Tests 04/13/18 04/14/18 04/15/18 12:40 06:30 06:00 WBC 9.2 Hgb 11.9 Plt Count 181 Sodium Potassium Creatinine Troponin I < 0.02 D 0.04 D 04/15/18 06:00 WBC Hgb Plt Count Sodium 142 Potassium 4.5 Creatinine 2.0 H Troponin I Pending - ....Imaging Ultrasound: Image Reviewed EKG: Image Reviewed Assessment/Plan AF, HTN, HLD, CAD(s/p PCI), CHB s/p pacemaker, diabetes, CKD, gout, OA, hiatal hernia GERD, anemia of chronic disease, and GI bleed, who presents to the ED with his for 3 days of dizziness and 1 week of back pain. REC: Continue tele for today- thus far no arrhythmias to explain sx Carotid US is unremarkable Echo pending. Neuro evaluation.
[2018-04-15] MEDS: TAMSULOSIN HCL 0.4 MG CAP.ER.24H (FP) PO SCH (08:51)
[2018-04-15] MEDS: FERROUS SO4 325 MG TABLET (FP) PO SCH ×2 (08:51→16:53)
[2018-04-15] MEDS ORDERED: PT OWN MED DRAWER 7, Y5N ONE ×2 (08:53→21:19)
[2018-04-15] MEDS: ALLOPURINOL 100 MG TABLET (FP) PO SCH (09:08)
[2018-04-15] MEDS: ASPIRIN COATED 81 MG TABLET.EC PO SCH (09:08)
[2018-04-15] MEDS: APIXABAN 2.5 MG TABLET PO SCH ×2 (09:08→21:22)
[2018-04-15] MEDS: metoPROLOL SUCCINATE 25 MG TAB.SR.24H (FP) PO SCH (09:08)
[2018-04-15] MEDS: RANITIDINE HCL 150 MG TABLET (FP) PO SCH ×2 (09:08→21:22)
[2018-04-15] MEDS: SACUBITRIL/VALSARTAN 24 MG-26 MG TABLET PO SCH ×2 (09:08→21:22)
[2018-04-15] MEDS ORDERED: INSULIN (NOVOLOG) ASPART 100 UNITS/ML 10ML VIAL ONE ×2 (11:59→17:00)
--- NOTE | 2018-04-15 13:30 | CONSULT ---
Consult Consult Specialty:: Nephrology Reason for Consultation:: CKD - History of Present Illness Chief Complaint: vertigo History of Present Illness: Pt is an 82 year old male with pmhx of CKD, HLD, CAD, CHF, PPM, gout, anemia and GI bleed who presents to the ER with vertigo. I was called to evaluate him for CKD. He has not followed with me since his last hospitalization. He denies shortness of breath. He does complain of lower ext edema. He denies dysuria or hematuria. He is being worked up for dizziness. He does complains of increased fatigue. - History Source History Provided By: Patient, Medical Record - Past Medical History Cardio/Vascular: Yes: AFIB, CAD, CHF, HTN, Hyperlipdemia, Other (CHB s/p PPM NSVT) Gastrointestinal: Yes: Constipation, GERD, GI Bleed Renal/: Yes: BPH, Other (CKD) Musculoskeletal: Yes: Osteoarthritis, Other (Gout) Endocrine: Yes: Diabetes Mellitus - Past Surgical History Past Surgical History: Yes: Cholecystectomy, Permanent Pacemaker - Alcohol/Substance Use Hx Alcohol Use: No - Smoking History Smoking history: Never smoked Have you smoked in the past 12 months: No Aproximately how many cigarettes per day: 0 If you are a former smoker, when did you quit?: "long time ago" - Social History ADL: Independent History of Recent Travel: No Home Medications - Allergies Allergies/Adverse Reactions: Allergies Allergy/AdvReac Type Severity Reaction Status Date / Time No Known Drug Allergies Allergy Verified 04/13/18 09:55 - Home Medications Home Medications: Ambulatory Orders Atorvastatin Ca [Lipitor] 20 mg PO HS 12/01/15 Ranitidine [Zantac -] 150 mg PO BID 12/01/15 Sacubitril/Valsartan [Entresto 24 mg-26 mg Tablet] 1 each PO BID 12/01/15 Tamsulosin HCl 0.4 mg PO DAILY 12/01/15 Linaclotide [Linzess] 145 mcg PO DAILY 11/04/16 Linagliptin [Tradjenta] 5 mg PO DAILY 11/04/16 Meclizine HCl [Antivert -] 25 mg PO DAILY PRN 11/04/16 Metoprolol Succinate [Toprol Xl] 25 mg PO DAILY 02/18/17 Aspirin [[place] Aspirin] 81 mg PO DAILY #30 tablet. 02/23/17 Apixaban [Eliquis -] 2.5 mg PO BID #30 tablet 04/13/17 Allopurinol [Zyloprim -] 100 mg PO DAILY 09/01/17 Ferrous Sulfate 325 mg PO BID 09/01/17 Pregabalin [Lyrica -] 50 mg PO TID 09/01/17 Semaglutide [Ozempic] 0.25 mg SQ WEEKLY 04/13/18 Tramadol HCl 50 mg PO DAILY PRN MDD 2 04/13/18 Family Disease History - Family Disease History Family History: Denies Review of Systems - Review of Systems Constitutional: reports: Malaise Eyes: reports: No Symptoms HENT: reports: No Symptoms Neck: reports: No Symptoms Cardiovascular: reports: Edema Respiratory: reports: No Symptoms Gastrointestinal: reports: No Symptoms Genitourinary: reports: No Symptoms Musculoskeletal: reports: No Symptoms Neurological: reports: Dizziness Endocrine: reports: No Symptoms Hematology/Lymphatic: reports: No Symptoms Psychiatric: reports: No Symptoms Physical Exam Vital Signs: Vital Signs Temperature 98.0 F 04/15/18 10:00 Pulse Rate 71 04/15/18 10:00 Respiratory Rate 20 04/15/18 10:00 Blood Pressure 103/66 04/15/18 10:00 O2 Sat by Pulse Oximetry (%) 94 L 04/15/18 10:00 Constitutional: Yes: Calm Eyes: Yes: Conjunctiva Clear HENT: Yes: Atraumatic Cardiovascular: Yes: S1, S2 Respiratory: Yes: CTA Bilaterally Gastrointestinal: Yes: Soft Renal/: Yes: WNL Musculoskeletal: Yes: WNL Edema: Yes Edema: LLE: 1+, RLE: 1+ Neurological: Yes: Oriented Psychiatric: Yes: Oriented Labs: CBC, BMP 04/15/18 06:00 04/15/18 06:00 Laboratory Tests 12/04/15 12/05/15 12/06/15 10:00 05:40 05:35 Creatinine 2.8 H 2.9 H Urine Protein Urine Blood Free [place]/Lambda Ratio Hep Bs Antigen Negative Hepatitis C Antibody <0.1 11/04/16 11/11/16 11/12/16 09:00 06:00 06:00 Creatinine 2.5 H 2.4 H Urine Protein Urine Blood Free [place]/Lambda Ratio 1.39 Hep Bs Antigen Hepatitis C Antibody 04/02/20/17 02/22/17 06:18 05:35 05:35 Creatinine 2.5 H 2.3 H 2.9 H Urine Protein Urine Blood Free [place]/Lambda Ratio Hep Bs Antigen Hepatitis C Antibody 04/09/17 04/11/17 04/13/17 09:22 05:10 09:05 Creatinine 2.8 H 2.4 H 2.9 H D Urine Protein Urine Blood Free [place]/Lambda Ratio Hep Bs Antigen Hepatitis C Antibody 09/01/17 04/13/18 04/13/18 10:03 12:40 13:30 Creatinine 2.2 H D 1.0 D Urine Protein 2+ H Urine Blood 1+ H Free [place]/Lambda Ratio Hep Bs Antigen Hepatitis C Antibody 04/14/18 04/15/18 06:30 06:00 Creatinine 2.1 H D 2.0 H Urine Protein Urine Blood Free [place]/Lambda Ratio Hep Bs Antigen Hepatitis C Antibody Imaging - Results Chest X-ray: Report Reviewed Ultrasound: Report Reviewed Problem List - Problems (1) Dizziness Code(s): R42 - DIZZINESS AND GIDDINESS (2) Lower back pain Code(s): M54.5 - LOW BACK PAIN (3) Anemia Code(s): D64.9 - ANEMIA, UNSPECIFIED (4) Chronic kidney disease Code(s): N18.9 - CHRONIC KIDNEY DISEASE, UNSPECIFIED Qualifiers: Chronic kidney disease stage: unspecified stage Qualified Code(s): N18.9 - Chronic kidney disease, unspecified Assessment/Plan Current Medications Generic Name Dose Route Start Last Admin Trade Name Freq PRN Reason Stop Dose Admin Allopurinol 100 mg 04/14/18 10:00 04/15/18 09:08 Zyloprim - PO 100 mg DAILY [facility] Administration Apixaban 2.5 mg 04/14/18 10:00 04/15/18 09:08 Eliquis - PO 2.5 mg BID [facility] Administration Aspirin 81 mg 04/14/18 10:00 04/15/18 09:08 Ecotrin - PO 81 mg DAILY [facility] Administration Atorvastatin Calcium 20 mg 04/14/18 22:00 04/14/18 22:22 Lipitor - PO 20 mg HS [facility] Administration Ferrous Sulfate 325 mg 04/14/18 08:00 04/15/18 08:51 Feosol - PO 325 mg BIDWM [facility] Administration Insulin Aspart 1 vial 04/14/18 07:00 04/15/18 12:05 Novolog Vial Sliding Scale - SQ Not Given ACHS [facility] Protocol Metoprolol Succinate 25 mg 04/14/18 10:00 04/15/18 09:08 Toprol Xl - PO 25 mg DAILY [facility] Administration Linaclotide [Linzess 0 mcg 04/14/18 10:00 04/15/18 11:26 ] 145 Mcg Capsule ( PO Not Given Pt's Own) DAILY [facility] Pregabalin 50 mg 04/14/18 06:00 04/15/18 14:43 Lyrica - PO 50 mg TID [facility] Administration Ranitidine HCl 150 mg 04/14/18 10:00 04/15/18 09:08 Zantac - PO 150 mg BID [facility] Administration Sacubitril/Valsartan 1 tab 04/14/18 10:00 04/15/18 09:08 Entresto 24 Mg-26 Mg Tablet PO 1 tab BID [facility] Administration Sitagliptin Phosphate 100 mg 04/14/18 07:00 04/15/18 06:54 Januvia - PO 100 mg DAILY@0700 [facility] Administration Tamsulosin HCl 0.4 mg 04/14/18 08:30 04/15/18 08:51 Flomax - PO 0.4 mg DAILY@0830 [facility] Administration IMPRESSION 1. CKD 2. CHF 3. s/p pacemaker placement 4. anemia 5. dm 6. htn 7. hyperlipidemia 8. dizziness/vertigo Plan - renal function is stable - restart lasix daily - monitor bp - repeat labs in am - will follow - check urine prt to manufacturing director ratio Dr Rosario
[2018-04-15] MEDS: FUROSEMIDE 40 MG TABLET (FP) PO SCH (15:40)
[2018-04-15] MEDS: ATORVASTATIN CA 20 MG TABLET (FP) PO SCH (21:22)
[2018-04-15 22:19] LABS: RATIO URIN PROTEIN/URIN CREAT 3.2 MG/DL; URINE CREATININE 24.2 mg/dL (20-370)
--- NOTE | 2018-04-15 22:21 | PN ---
Progress Note, Physician - Current Medication List Current Medications: Active Medications Allopurinol (Zyloprim -) 100 mg PO DAILY [facility] Last Admin: 04/15/18 09:08 Dose: 100 mg Apixaban (Eliquis -) 2.5 mg PO BID [facility] Last Admin: 04/15/18 21:22 Dose: 2.5 mg Aspirin (Ecotrin -) 81 mg PO DAILY [facility] Last Admin: 04/15/18 09:08 Dose: 81 mg Atorvastatin Calcium (Lipitor -) 20 mg PO HS [facility] Last Admin: 04/15/18 21:22 Dose: 20 mg Ferrous Sulfate (Feosol -) 325 mg PO BIDWM [facility] Last Admin: 04/15/18 16:53 Dose: 325 mg Furosemide (Lasix -) 40 mg PO DAILY [facility] Last Admin: 04/15/18 15:40 Dose: 40 mg Insulin Aspart (Novolog Vial Sliding Scale -) 1 vial SQ ACHS [facility]; Protocol Last Admin: 04/15/18 21:15 Dose: Not Given Metoprolol Succinate (Toprol Xl -) 25 mg PO DAILY [facility] Last Admin: 04/15/18 09:08 Dose: 25 mg Linaclotide [Linzess ] 145 Mcg Capsule ( Pt's Own) 0 mcg PO DAILY [facility] Last Admin: 04/15/18 11:26 Dose: Not Given Pregabalin (Lyrica -) 50 mg PO TID [facility] Last Admin: 04/15/18 21:22 Dose: 50 mg Ranitidine HCl (Zantac -) 150 mg PO BID [facility] Last Admin: 04/15/18 21:22 Dose: 150 mg Sacubitril/Valsartan (Entresto 24 Mg-26 Mg Tablet) 1 tab PO BID [facility] Last Admin: 04/15/18 21:22 Dose: 1 tab Sitagliptin Phosphate (Januvia -) 100 mg PO DAILY@0700 [facility] Last Admin: 04/15/18 06:54 Dose: 100 mg Tamsulosin HCl (Flomax -) 0.4 mg PO DAILY@0830 [facility] Last Admin: 04/15/18 08:51 Dose: 0.4 mg - Objective Vital Signs: Vital Signs Temperature 98.1 F 04/15/18 18:31 Pulse Rate 70 04/15/18 18:31 Respiratory Rate 18 04/15/18 18:31 Blood Pressure 145/75 04/15/18 18:31 O2 Sat by Pulse Oximetry (%) 94 L 04/15/18 10:00 Labs: CBC, BMP 04/15/18 06:00 04/15/18 06:00 INR, PTT INR 2.00 (0.82-1.09) H 04/13/18 10:30 Problem List - Problems (1) Vertigo Code(s): R42 - DIZZINESS AND GIDDINESS (2) Lower back pain Code(s): M54.5 - LOW BACK PAIN (3) Anemia Code(s): D64.9 - ANEMIA, UNSPECIFIED (4) BPH (benign prostatic hyperplasia) Code(s): N40.0 - BENIGN PROSTATIC HYPERPLASIA WITHOUT LOWER URINRY TRACT SYMP (5) CAD (coronary artery disease) Code(s): I25.10 - ATHSCL HEART DISEASE OF [place] CORONARY ARTERY W/O ANG PCTRS Qualifiers: Coronary Disease-Associated Artery/Lesion type: unspecified vessel or lesion type [place] vs. transplanted heart: unspecified whether [place] or transplanted heart Associated angina: without angina Qualified Code(s): I25.10 - Atherosclerotic heart disease of [place] coronary artery without angina pectoris (6) Chronic kidney disease Code(s): N18.9 - CHRONIC KIDNEY DISEASE, UNSPECIFIED Qualifiers: Chronic kidney disease stage: unspecified stage Qualified Code(s): N18.9 - Chronic kidney disease, unspecified (7) HLD (hyperlipidemia) Code(s): E78.5 - HYPERLIPIDEMIA, UNSPECIFIED Qualifiers: Hyperlipidemia type: mixed hyperlipidemia Qualified Code(s): E78.2 - Mixed hyperlipidemia (8) Hypertension Code(s): I10 - ESSENTIAL (PRIMARY) HYPERTENSION Qualifiers: Hypertension type: essential hypertension Qualified Code(s): I10 - Essential (primary) hypertension (9) Osteoarthritis Code(s): M19.90 - UNSPECIFIED OSTEOARTHRITIS, UNSPECIFIED SITE (10) PAF (paroxysmal atrial fibrillation) Code(s): I48.0 - PAROXYSMAL ATRIAL FIBRILLATION
[2018-04-16] MEDS: INSULIN SLIDING SCALE (NOVOLOG) 1 VIAL SQ SCH ×2 (06:13→12:40)
[2018-04-16] MEDS: PREGABALIN 50 MG CAPSULE PO SCH ×2 (06:20→14:43)
[2018-04-16] MEDS: sitaGLIPtin PHOSPHATE 100 MG TABLET (FP) PO SCH (06:20)
[2018-04-16 07:20] LABS: CHLORIDE 106 mmol/L (98-107); POTASSIUM 4.1 mmol/L (3.5-5.1); SODIUM 141 mmol/L (136-145)
[2018-04-16 07:24] LABS: ANION GAP 9 (8-16); BLOOD UREA NITROGEN 31 mg/dL (7-18); CO2 26 mmol/L (21-32); CREATININE 2.3 mg/dL (0.7-1.3); GLUCOSE,RANDOM 163 mg/dL (74-106)
--- NOTE | 2018-04-16 07:43 | PN ---
Progress Note, Physician Chief Complaint: no acute complaints TELE: no sustained arrhythmias. - Current Medication List Current Medications: Active Medications Allopurinol (Zyloprim -) 100 mg PO DAILY [facility] Last Admin: 04/15/18 09:08 Dose: 100 mg Apixaban (Eliquis -) 2.5 mg PO BID [facility] Last Admin: 04/15/18 21:22 Dose: 2.5 mg Aspirin (Ecotrin -) 81 mg PO DAILY [facility] Last Admin: 04/15/18 09:08 Dose: 81 mg Atorvastatin Calcium (Lipitor -) 20 mg PO HS [facility] Last Admin: 04/15/18 21:22 Dose: 20 mg Ferrous Sulfate (Feosol -) 325 mg PO BIDWM [facility] Last Admin: 04/15/18 16:53 Dose: 325 mg Furosemide (Lasix -) 40 mg PO DAILY [facility] Last Admin: 04/15/18 15:40 Dose: 40 mg Insulin Aspart (Novolog Vial Sliding Scale -) 1 vial SQ [facility]; Protocol Last Admin: 04/16/18 06:13 Dose: Not Given Metoprolol Succinate (Toprol Xl -) 25 mg PO DAILY [facility] Last Admin: 04/15/18 09:08 Dose: 25 mg Linaclotide [Linzess ] 145 Mcg Capsule ( Pt's Own) 0 mcg PO DAILY [facility] Last Admin: 04/15/18 11:26 Dose: Not Given Pregabalin (Lyrica -) 50 mg PO TID [facility] Last Admin: 04/16/18 06:20 Dose: 50 mg Ranitidine HCl (Zantac -) 150 mg PO BID [facility] Last Admin: 04/15/18 21:22 Dose: 150 mg Sacubitril/Valsartan (Entresto 24 Mg-26 Mg Tablet) 1 tab PO BID [facility] Last Admin: 04/15/18 21:22 Dose: 1 tab Sitagliptin Phosphate (Januvia -) 100 mg PO DAILY@0700 [facility] Last Admin: 04/16/18 06:20 Dose: 100 mg Tamsulosin HCl (Flomax -) 0.4 mg PO DAILY@0830 [facility] Last Admin: 04/15/18 08:51 Dose: 0.4 mg - Objective Vital Signs: Vital Signs Temperature 98.2 F 04/16/18 06:47 Pulse Rate 70 04/16/18 06:47 Respiratory Rate 20 04/16/18 06:47 Blood Pressure 120/69 04/16/18 06:47 O2 Sat by Pulse Oximetry (%) 96 04/15/18 21:00 Constitutional: Yes: Calm Cardiovascular: Yes: Regular Rate and Rhythm Respiratory: Yes: CTA Bilaterally Gastrointestinal: Yes: Soft Edema: No Neurological: Yes: Alert Labs: CBC, BMP 04/15/18 06:00 04/16/18 06:30 INR, PTT INR 2.00 (0.82-1.09) H 04/13/18 10:30 - ....Imaging EKG: Image Reviewed Assessment/Plan Assessment/Plan AF, HTN, HLD, CAD(s/p PCI), CHB s/p pacemaker, diabetes, CKD, gout, OA, hiatal hernia GERD, anemia of chronic disease, and GI bleed, who presents to the ED with his for 3 days of dizziness and 1 week of back pain. REC: Continue tele for today- thus far no arrhythmias to explain sx Carotid US is unremarkable Echo w/ normal LV fxn nd moderate to severe MR. Review of prior lab data shows creatinine is essentially at baseline, Lasix resumed. Outpatient f/u w/ Dr. Coburn in 1 week.
[2018-04-16] MEDS ORDERED: PT OWN MED DRAWER 7, Y5N ONE (08:33)
[2018-04-16] MEDS: TAMSULOSIN HCL 0.4 MG CAP.ER.24H (FP) PO SCH (08:45)
[2018-04-16] MEDS: FERROUS SO4 325 MG TABLET (FP) PO SCH (08:46)
[2018-04-16] MEDS: APIXABAN 2.5 MG TABLET PO SCH (09:03)
[2018-04-16] MEDS: metoPROLOL SUCCINATE 25 MG TAB.SR.24H (FP) PO SCH (09:03)
[2018-04-16] MEDS: LINACLOTIDE 145 MCG PO SCH (09:03)
[2018-04-16] MEDS: ALLOPURINOL 100 MG TABLET (FP) PO SCH (09:03)
[2018-04-16] MEDS: ASPIRIN COATED 81 MG TABLET.EC PO SCH (09:03)
[2018-04-16] MEDS: FUROSEMIDE 40 MG TABLET (FP) PO SCH (09:03)
[2018-04-16] MEDS: RANITIDINE HCL 150 MG TABLET (FP) PO SCH (09:03)
[2018-04-16] MEDS: SACUBITRIL/VALSARTAN 24 MG-26 MG TABLET PO SCH (09:04)
--- NOTE | 2018-04-16 14:18 | PN ---
Progress Note, Physician History of Present Illness: Pt seen and examined at bedside. He is eager to go home. He denies shortness of breath. - Current Medication List Current Medications: Active Medications Allopurinol (Zyloprim -) 100 mg PO DAILY [facility] Last Admin: 04/16/18 09:03 Dose: 100 mg Apixaban (Eliquis -) 2.5 mg PO BID [facility] Last Admin: 04/16/18 09:03 Dose: 2.5 mg Aspirin (Ecotrin -) 81 mg PO DAILY [facility] Last Admin: 04/16/18 09:03 Dose: 81 mg Atorvastatin Calcium (Lipitor -) 20 mg PO HS [facility] Last Admin: 04/15/18 21:22 Dose: 20 mg Ferrous Sulfate (Feosol -) 325 mg PO BIDWM [facility] Last Admin: 04/16/18 08:46 Dose: 325 mg Furosemide (Lasix -) 40 mg PO DAILY [facility] Last Admin: 04/16/18 09:03 Dose: 40 mg Insulin Aspart (Novolog Vial Sliding Scale -) 1 vial SQ ACHS [facility]; Protocol Last Admin: 04/16/18 12:40 Dose: Not Given Metoprolol Succinate (Toprol Xl -) 25 mg PO DAILY [facility] Last Admin: 04/16/18 09:03 Dose: 25 mg Linaclotide [Linzess ] 145 Mcg Capsule ( Pt's Own) 0 mcg PO DAILY [facility] Last Admin: 04/16/18 09:03 Dose: 145 mcg Pregabalin (Lyrica -) 50 mg PO TID [facility] Last Admin: 04/16/18 06:20 Dose: 50 mg Ranitidine HCl (Zantac -) 150 mg PO BID [facility] Last Admin: 04/16/18 09:03 Dose: 150 mg Sacubitril/Valsartan (Entresto 24 Mg-26 Mg Tablet) 1 tab PO BID [facility] Last Admin: 04/16/18 09:04 Dose: 1 tab Sitagliptin Phosphate (Januvia -) 100 mg PO DAILY@0700 [facility] Last Admin: 04/16/18 06:20 Dose: 100 mg Tamsulosin HCl (Flomax -) 0.4 mg PO DAILY@0830 [facility] Last Admin: 04/16/18 08:45 Dose: 0.4 mg - Objective Vital Signs: Vital Signs Temperature 98.5 F 04/16/18 10:00 Pulse Rate 71 04/16/18 10:00 Respiratory Rate 20 04/16/18 10:00 Blood Pressure 119/57 04/16/18 10:00 O2 Sat by Pulse Oximetry (%) 96 04/16/18 10:00 Constitutional: Yes: Calm Eyes: Yes: Conjunctiva Clear HENT: Yes: Atraumatic Neck: Yes: Supple Cardiovascular: Yes: S1, S2 Respiratory: Yes: CTA Bilaterally Gastrointestinal: Yes: Soft Genitourinary: Yes: WNL Musculoskeletal: Yes: WNL Edema: Yes Edema: LLE: 1+, RLE: 1+ Neurological: Yes: Oriented Psychiatric: Yes: Oriented Labs: CBC, BMP 04/15/18 06:00 04/16/18 06:30 INR, PTT INR 2.00 (0.82-1.09) H 04/13/18 10:30 Problem List - Problems (1) Dizziness Code(s): R42 - DIZZINESS AND GIDDINESS (2) Lower back pain Code(s): M54.5 - LOW BACK PAIN (3) Anemia Code(s): D64.9 - ANEMIA, UNSPECIFIED (4) Chronic kidney disease Code(s): N18.9 - CHRONIC KIDNEY DISEASE, UNSPECIFIED Qualifiers: Chronic kidney disease stage: unspecified stage Qualified Code(s): N18.9 - Chronic kidney disease, unspecified Assessment/Plan Current Medications Generic Name Dose Route Start Last Admin Trade Name Freq PRN Reason Stop Dose Admin Allopurinol 100 mg 04/14/18 10:00 04/16/18 09:03 Zyloprim - PO 100 mg DAILY [facility] Administration Apixaban 2.5 mg 04/14/18 10:00 04/16/18 09:03 Eliquis - PO 2.5 mg BID [facility] Administration Aspirin 81 mg 04/14/18 10:00 04/16/18 09:03 Ecotrin - PO 81 mg DAILY [facility] Administration Atorvastatin Calcium 20 mg 04/14/18 22:00 04/15/18 21:22 Lipitor - PO 20 mg HS [facility] Administration Ferrous Sulfate 325 mg 04/14/18 08:00 04/16/18 08:46 Feosol - PO 325 mg BIDWM [facility] Administration Furosemide 40 mg 04/15/18 15:15 04/16/18 09:03 Lasix - PO 40 mg DAILY [facility] Administration Insulin Aspart 1 vial 04/14/18 07:00 06/19/18 12:40 Novolog Vial Sliding Scale - SQ Not Given ACHS [facility] Protocol Metoprolol Succinate 25 mg 04/14/18 10:00 04/16/18 09:03 Toprol Xl - PO 25 mg DAILY [facility] Administration Linaclotide [Linzess 0 mcg 04/14/18 10:00 04/16/18 09:03 ] 145 Mcg Capsule ( PO 145 mcg Pt's Own) DAILY [facility] Administration Pregabalin 50 mg 04/14/18 06:00 04/16/18 06:20 Lyrica - PO 50 mg TID [facility] Administration Ranitidine HCl 150 mg 04/14/18 10:00 04/16/18 09:03 Zantac - PO 150 mg BID [facility] Administration Sacubitril/Valsartan 1 tab 04/14/18 10:00 04/16/18 09:04 Entresto 24 Mg-26 Mg Tablet PO 1 tab BID [facility] Administration Sitagliptin Phosphate 100 mg 04/14/18 07:00 04/16/18 06:20 Januvia - PO 100 mg DAILY@0700 [facility] Administration Tamsulosin HCl 0.4 mg 04/14/18 08:30 04/16/18 08:45 Flomax - PO 0.4 mg DAILY@0830 [facility] Administration IMPRESSION 1. CKD 2. CHF 3. s/p pacemaker placement 4. anemia 5. dm 6. htn 7. hyperlipidemia 8. dizziness/vertigo Plan - cont lasix - outpt follow up - monitor renal function - follow urine studies - discussed with cardio - sider mechanic of 1 was likely a lab error Dr Rosario
[2018-04-16 15:34] VITALS: BP 132/74; PULSE 70; TEMP 98.3
--- NOTE | 2018-04-18 11:59 | DS ---
Physical Examination Vital Signs: Vital Signs Temperature 98.3 F 04/16/18 15:33 Pulse Rate 70 04/16/18 15:33 Respiratory Rate 20 04/16/18 15:33 Blood Pressure 132/74 04/16/18 15:33 O2 Sat by Pulse Oximetry (%) 96 04/16/18 10:00 Labs: CBC, BMP 04/15/18 06:00 04/16/18 06:30 Discharge Summary Reason For Visit: DIZZINESS Condition: Good - Instructions Diet, Activity, Other Instructions: 2200 calorie diabetic diet and 2 [address] sodium diet See Dr Patterson in 1 week Referrals: Don Patterson MD [Primary Care Provider] - Disposition: HOME - Home Medications Comprehensive Discharge Medication List: Ambulatory Orders Atorvastatin Ca [Lipitor] 20 mg PO HS 12/01/15 Ranitidine [Zantac -] 150 mg PO BID 12/01/15 Sacubitril/Valsartan [Entresto 24 mg-26 mg Tablet] 1 each PO BID 12/01/15 Tamsulosin HCl 0.4 mg PO DAILY 12/01/15 Linaclotide [Linzess] 145 mcg PO DAILY 11/04/16 Linagliptin [Tradjenta] 5 mg PO DAILY 11/04/16 Meclizine HCl [Antivert -] 25 mg PO DAILY PRN 11/04/16 Metoprolol Succinate [Toprol Xl] 25 mg PO DAILY 02/18/17 Aspirin [[place] Aspirin] 81 mg PO DAILY #30 tablet. 02/23/17 Apixaban [Eliquis -] 2.5 mg PO BID #30 tablet 04/13/17 Allopurinol [Zyloprim -] 100 mg PO DAILY 09/01/17 Ferrous Sulfate 325 mg PO BID 09/01/17 Pregabalin [Lyrica -] 50 mg PO TID 09/01/17 Semaglutide [Ozempic] 0.25 mg SQ WEEKLY 04/13/18 Tramadol HCl 50 mg PO DAILY PRN MDD 2 04/13/18 Furosemide [Lasix -] 40 mg PO DAILY tablet 04/16/18
== END 2018-04-16 16:20 | disposition home or self-care (01) | DRG 149 ==
LOC: JER 09:50 → JERBED 14:39 → J4S 16:59 → OBSVTOIN 04-14 02:17
PROVIDERS: ADMIT Internal Medicine; ATTEND Internal Medicine
DX: H81.10 Benign paroxysmal vertigo, unspecified ear (principal); I47.1 Supraventricular tachycardia; J21.9 Acute bronchiolitis, unspecified; I13.0 Hypertensive heart and chronic kidney disease with heart failure and stage 1 through stage 4 chronic kidney disease, or unspecified chronic kidney disease; E11.22 Type 2 diabetes mellitus with diabetic chronic kidney disease; Z79.84 Long term (current) use of oral hypoglycemic drugs; I48.0 Paroxysmal atrial fibrillation; M54.5 Low back pain; D64.9 Anemia, unspecified; I25.10 Atherosclerotic heart disease of native coronary artery without angina pectoris; N18.9 Chronic kidney disease, unspecified; Z95.5 Presence of coronary angioplasty implant and graft; M10.9 Gout, unspecified; D63.8 Anemia in other chronic diseases classified elsewhere; Z95.0 Presence of cardiac pacemaker; Z87.891 Personal history of nicotine dependence; Z96.653 Presence of artificial knee joint, bilateral; I36.1 Nonrheumatic tricuspid (valve) insufficiency; M19.90 Unspecified osteoarthritis, unspecified site; N40.0 Benign prostatic hyperplasia without lower urinary tract symptoms; I34.0 Nonrheumatic mitral (valve) insufficiency; E78.5 Hyperlipidemia, unspecified
CPT/HCPCS: 36415; 70450-TC; 71045-TC-FY; 72100-TC-FY; 76775-TC; 80048; 80053; 81003; 81015; 82550; 82570; 82962; 83036; 83735; 84100; 84156; 84443; 84484; 85025; 85610; 85730; 93005; 93010; 93306-TC; 93880-TC; 97116-GP; 97161-GP; 99285-25; G0378

== ENCOUNTER 2018-06-02 16:14 | Emergency (ER) | payer MEDICARE, OTHER ==
[2018-06-02 16:22] VITALS: BMI 36.8
--- NOTE | 2018-06-02 17:03 | PDOC ---
History of Present Illness - General Chief Complaint: Pain Stated Complaint: PAIN Time Seen by Provider: 06/02/18 17:02 - History of Present Illness Initial Comments: 06/02/18 17:20 The patient is an 82 year old male with a history of HTN, HLD, DM, CAD, abdominal hernia who presents for evaluation of abdominal pain. The patient reports a 3 day history of burning lower abdominal pain with radiation into the patient's back prompting his presentation to the ED. The patient notes that his pain is worse at the beginning of urination and improves after urination. The patient notes increased abdominal bloating as well as an episode of diarrhea 1 day ago. The patient otherwise denies fevers, chills, SOB, chest pain, nausea, or vomiting. Past History - Past Medical History Allergies/Adverse Reactions: Allergies Allergy/AdvReac Type Severity Reaction Status Date / Time No Known Drug Allergies Allergy Verified 06/02/18 16:22 Home Medications: Ambulatory Orders Atorvastatin Ca [Lipitor] 20 mg PO HS 12/01/15 Ranitidine [Zantac -] 150 mg PO BID 12/01/15 Sacubitril/Valsartan [Entresto 24 mg-26 mg Tablet] 1 each PO BID 12/01/15 Tamsulosin HCl 0.4 mg PO DAILY 12/01/15 Linaclotide [Linzess] 145 mcg PO DAILY 11/04/16 Linagliptin [Tradjenta] 5 mg PO DAILY 11/04/16 Meclizine HCl [Antivert -] 25 mg PO DAILY PRN 11/04/16 Metoprolol Succinate [Toprol Xl] 25 mg PO DAILY 02/18/17 Aspirin [[place] Aspirin] 81 mg PO DAILY #30 tablet. 02/23/17 Apixaban [Eliquis -] 2.5 mg PO BID #30 tablet 04/13/17 Allopurinol [Zyloprim -] 100 mg PO DAILY 09/01/17 Ferrous Sulfate 325 mg PO BID 09/01/17 Pregabalin [Lyrica -] 50 mg PO TID 09/01/17 Tramadol HCl 50 mg PO DAILY PRN MDD 2 04/13/18 Furosemide [Lasix -] 40 mg PO DAILY tablet 04/16/18 Anemia: No Asthma: No Cancer: No Cardiac Disorders: Yes (CAD) CVA: No COPD: No CHF: No Dementia: No Diabetes: Yes GI Disorders: No Disorders: Yes (?) HTN: Yes Hypercholesterolemia: Yes Liver Disease: No Seizures: No Thyroid Disease: No Other medical history: abdominal hernia - Surgical History Cardiac Surgery: Yes (pacemaker, STENTS) Cholecystectomy: Yes Neurologic Surgery: No Orthopedic Surgery: (Yes, bilateral knee replacement) - Suicide/Smoking/Psychosocial Hx Smoking Status: No Smoking History: Never smoked Have you smoked in the past 12 months: No Number of Cigarettes Smoked Daily: 0 If you are a former smoker, when did you quit?: "long time ago" Hx Alcohol Use: No Drug/Substance Use Hx: No Substance Use Type: None Hx Substance Use Treatment: No Review of Systems - Review of Systems Comments:: 06/02/18 18:09 Constitutional: No fevers, chills, fatigue, malaise HEENT: No Rhinorrhea, nasal congestion, visual changes Cardiovascular: No chest pain, syncope, palpitations, lightheadedness Respiratory: No Cough, SOB, Hemoptysis, Gastrointestinal: Abdominal pain, diarrhea. No Nausea, Vomiting, Constipation, Melena Genitourinary: Dysuria, Flank Pain. No Frequency, Urgency, Hesitancy, Hematuria , Musculoskeletal: No Myalgia, arthralgia Skin: No rashes, itching, bruising, pallor Neurologic: No Headache, Dizziness, Numbness, Weakness, or Tingling Psychiatric: No Hallucinations. No SI or HI *Physical Exam - Vital Signs Last Vital Signs Temp Pulse Resp BP Pulse Ox 97.7 F 70 18 143/75 99 06/02/18 16:20 06/02/18 16:20 06/02/18 16:20 06/02/18 16:20 06/02/18 16:20 - Physical Exam Comments: 06/02/18 18:10 General Appearance: Nourished. No Apparent Distress HEENT: EOMI, [place]. No Pharyngeal Erythema, Tonsillar Exudate, Tonsillar Erythema Neck: No Cervical Lymphadenopathy Respiratory/Chest: Lungs Clear, Normal Breath Sounds. No Crackles, Rales, Rhonchi, Wheezing Cardiovascular: Regular Rhythm, Regular Rate. No Murmur, Gallops, Rubs Gastrointestinal/Abdominal: Normal Bowel Sounds, Distended abdomen with lower abdominal tenderness to palpation and diffuse discomfort with palpation. No Guarding, Rebound, Musculoskeletal: No CVA Tenderness Extremity: Normal Capillary Refill Integumentary: Normal Color, Dry, Warm Neurologic: Fully Oriented, Alert, Normal Mood/Affect, Normal Response, Medical Decision Making - Medical Decision Making 06/02/18 18:11 The patient is an 82 year old male with a history of HTN, HLD, DM, CAD, abdominal hernia who presents for evaluation of abdominal pain. Differential includes but is not limited to: UTI, Pyelonephritis, Kidney Stone, Intra- abdominal pathology, Infectious, Metabolic Derangement. Given the patient's history and physical exam, we will obtain a cbc, cmp, lactate, lipase, ua, urine culture to evaluate further for possible etiologies. We will continue to monitor and reassess while here in the ED. *DC/Admit/Observation/Transfer - Referrals Referrals: Don Patterson MD [Primary Care Provider] - - Patient Instructions - Post Discharge Activity
--- NOTE | 2018-06-02 17:15 | PDOC ---
Attending Attestation - Resident Resident Name: Guicho Guy - ED Attending Attestation I have performed the following: I have examined & evaluated the patient, The case was reviewed & discussed with the resident, I agree w/resident's findings & plan, Exceptions are as noted - HPI HPI: 06/02/18 19:58 The patient is a 82 year old male, with a significant past medical history of HTN, HLD, CAD(s/p stents), CHB s/p pacemaker, diabetes, CKD, gout, OA, hiatal hernia GERD, anemia of chronic disease, and GI bleed, who presents to the emergency department with, 3 days of lower quadrant abdominal pain radiating to his back. He describes his abdominal pain as a burning sensation. He reports associated bloating, dysuria at the beginning of urination but, not the end, 1 episode of diarrhea yesterday, and decreased PO intake. He denies any recent fevers, chills, headache or dizziness. He denies any recent nausea, vomit, or constipation. He denies any recent chest pain or shortness of breath. He denies any recent frequency, urgency or hematuria. Allergies: NKA Past surgical history: cholecystectomy, cardiac stent, pacemaker placement, b/l knee replacement, Social History: Former smoker. Primary Care Physician: Dr. Emmanuelle Patterson Assistant Passenger Locomotive Engineer: Dr. Jose Brunner - Physicial Exam PE: 06/02/18 17:53 GENERAL: The patient is awake, alert, and fully oriented, HEAD: Normocephalic, atraumatic. EYES: extraocular movements intact, sclera anicteric, conjunctiva clear. ENT: Normal voice, Moist mucous membranes. LUNGS: Breath sounds equal, clear to auscultation bilaterally. No wheezes, no rhonchi, no rales. HEART: Regular rate and rhythm, normal S1 and S2 without murmur, rub or gallop. ABDOMEN: mild diffuse tenderness, distended, mild typanitic, no cva tenderness EXTREMITIES: Normal range of motion, no edema. NEUROLOGICAL: No facial assymetry, Normal speech, PSYCH: Normal mood, normal affect. SKIN: Warm, Dry, normal turgor, - Medical Decision Making 06/02/18 17:56 82y M hx of dm, htn, hl, abd hernia presents with abdominal pain in the RLQ that radites up to the RUQ/flank and is burning in nature, started approx 3 days ago suddenly, currently slightly improved. no associated f/c, vomiting. + bm this morning, - ddx: obstruction, kidney stone, appendicitis, uti will ck labs possible imaging
[2018-06-02] MEDS ORDERED: morphine CARPU-JECT 2 MG/1 ML DISP.SYRIN IVPUSH ONE (17:52)
[2018-06-02 17:53] LABS: BASO % 0.4 % (0-2.0); EOS % 1.6 % (0-4.5); HEMATOCRIT 35.2 % (35.4-49); HEMOGLOBIN 11.9 GM/dL (11.7-16.9); LYMPH % 18.3 % (8-40); MCHC 33.9 g/dl (32.0-35.9); MEAN CELL VOLUME 100.2 fl (80-96); MEAN PLT VOLUME 8.1 fl (7.5-11.1); MONO % 8.8 % (3.8-10.2); NEUT % 70.9 % (42.8-82.8); PLATELET COUNT 181 K/MM3 (134-434); RBC 3.51 M/mm3 (4.00-5.60); RDW 13.4 % (11.9-15.9); WHITE BLOOD COUNT 8.9 K/mm3 (4.0-10.0)
[2018-06-02] MEDS ORDERED: MORPHINE SULFATE 2 MG/ML VIAL ONE (17:58)
[2018-06-02 18:00] LABS: URINE APPEARANCE CLEAR; URINE BILIRUBIN NEGATIVE (<2.0 mg/dL); URINE COLOR STRAW; URINE GLUCOSE (UA) 2+ (NEGATIVE); URINE KETONE NEGATIVE (NEGATIVE); URINE LEUK ESTERASE NEGATIVE (NEGATIVE); URINE NITRITE NEGATIVE (NEGATIVE); URINE UROBILINOGEN NEGATIVE mg/dL (0.2-1.0)
[2018-06-02 18:01] LABS: URINE PROTEIN 2+ (NEGATIVE)
[2018-06-02 18:02] LABS: CALCIUM OXALATE CRYSTALS RARE /hpf (NONE SEEN); URINE MUCUS RARE
[2018-06-02 18:35] LABS: ALK PHOS 89 U/L (45-117); ANION GAP 7 (8-16); BILIRUBIN,TOTAL 0.3 mg/dL (0.2-1.0); BLOOD UREA NITROGEN 28 mg/dL (7-18); CALCIUM 8.4 mg/dL (8.5-10.1); CHLORIDE 108 mmol/L (98-107); CO2 29 mmol/L (21-32); CREATININE 2.3 mg/dL (0.7-1.3); GLUCOSE,RANDOM 194 mg/dL (74-106); POTASSIUM 4.3 mmol/L (3.5-5.1); SGOT/AST 16 U/L (15-37); SGPT/ALT 14 U/L (12-78); SODIUM 144 mmol/L (136-145); TOT PROT 6.9 g/dl (6.4-8.2)
[2018-06-02 18:43] LABS: LIPASE 530 U/L (73-393)
--- NOTE | 2018-06-02 19:23 | PDOC ---
*Physical Exam - Vital Signs Last Vital Signs Temp Pulse Resp BP Pulse Ox 97.7 F 70 18 143/75 99 06/02/18 16:20 06/02/18 16:20 06/02/18 16:20 06/02/18 16:20 06/02/18 16:20 ED Treatment Course - LABORATORY CBC & Chemistry Diagram: 06/02/18 17:45 06/02/18 17:45 - ADDITIONAL ORDERS Additional order review: Laboratory Results 06/02/18 06/02/18 06/02/18 17:45 17:45 17:45 Sodium 144 Potassium 4.3 Chloride 108 H Carbon Dioxide 29 Anion Gap 7 L BUN 28 H Creatinine 2.3 H Creat Clearance w eGFR 27.29 Random Glucose 194 H Lactic Acid 1.7 Calcium 8.4 L Total Bilirubin 0.3 AST 16 D ALT 14 Alkaline Phosphatase 89 Total Protein 6.9 Albumin 3.0 L Lipase 530 H Urine Color Straw Urine Appearance Clear Urine pH 6.0 Ur Specific [place] 1.008 Urine Protein 2+ H Urine Glucose (UA) 2+ H Urine Ketones Negative Urine Blood 1+ H Urine Nitrite Negative Urine Bilirubin Negative Urine Urobilinogen Negative Ur Leukocyte Esterase Negative Urine WBC (Auto) 1 Urine RBC (Auto) 3 Calcium Oxalate Crystal Rare Urine Mucus Rare 06/02/18 17:45 RBC 3.51 L MCV 100.2 H MCHC 33.9 RDW 13.4 MPV 8.1 Neutrophils % 70.9 Lymphocytes % 18.3 Monocytes % 8.8 Eosinophils % 1.6 Basophils % 0.4 - Medications Given in the ED: ED Medications Discontinued Medications Generic Name Dose Route Start Last Admin Trade Name Herminio PRN Reason Stop Dose Admin Morphine Sulfate 2 mg 06/02/18 17:52 06/02/18 18:15 Morphine Injection - IVPUSH 06/02/18 17:53 2 mg ONCE ONE Administration Medical Decision Making - Medical Decision Making 06/02/18 23:01 Patient Name: SILAS BANKS THIS IS A PRELIMINARY REPORT FROM [facility] DATE OF SERVICE: 2018-06-02 19:38:02 IMAGES: [id number] EXAM: CT abdomen and pelvis without IV contrast. Clinical indication: Abdominal pain. There are no prior studies filled bowel for comparison. Technique: Axial unenhanced CT images of the abdomen and pelvis were obtained followed by coronal and sagittal reformats. Findings: There is an implanted cardiac device. The remainder of the visualized portions of the lower thorax are within normal limits. There is no free intra-abdominal gas or fluid. There's been a prior cholecystectomy. The liver, adrenals, pancreas, and spleen are unremarkable, given limitations of nonenhanced CT. There is no hydronephrosis or hydroureter bilaterally. There are no renal calculi bilaterally. There is nonspecific bilateral renal fat stranding which is nonspecific and can be seen chronically, but can be associated with acute inflammation. There is a small left-sided simple renal cortical cyst. The bilateral kidneys are otherwise unremarkable, given the limitations of an unenhanced CT. There is age-related aortoiliac atherosclerotic vascular calcifications. There are no enlarged abdominal or pelvic lymph nodes, by size criteria. The appendix is normal. There is mild sigmoid diverticulosis, without evidence of diverticulitis. The remainder the bowel is within normal limits. The urinary bladder is unremarkable. There is lumbar degenerative disc and facet disease. There is some mild bilateral hip osteoarthritis slightly greater on the right than the left. The remainder of the visualized bony structures are unremarkable. Impression: 1. Bilateral renal perinephric fat stranding which is nonspecific and can be seen frequently in a chronic setting, but can be associated with acute inflammation. There are no prior studies available to assess for chronicity. 2. Otherwise, unremarkable CT of the abdomen and pelvis, given the limitations of an unenhanced CT. Individualized dose optimization techniques were used for this CT. THIS DOCUMENT HAS BEEN ELECTRONICALLY SIGNED 06/03/18 00:00 Pt is feeling vastly improved; pt will follow with Dr. Rick; we spoke to Dr. Rick and she agrees. *DC/Admit/Observation/Transfer Diagnosis at time of Disposition: Elevated lipase Abdominal pain Qualifiers: Abdominal location: unspecified location Qualified Code(s): R10.9 - Unspecified abdominal pain Chronic kidney disease Qualifiers: Chronic kidney disease stage: unspecified stage Qualified Code(s): N18.9 - Chronic kidney disease, unspecified Diarrhea Qualifiers: Diarrhea type: unspecified type Qualified Code(s): R19.7 - Diarrhea, unspecified - Discharge Dispostion Disposition: HOME Condition at time of disposition: Stable - Referrals Referrals: Don Patterson MD [Primary Care Provider] - - Patient Instructions Additional Instructions: You were seen in the ER for abdominal pain. We did lab work on your blood and urine and found no abnormalities except for a slightly elevated lipase level ( which is an enzyme made by the pancreas). We took an electrocardiogram which showed no concerning findings on your heart activity. We did a chest x-ray which was also normal. We did an abdominal CT scan which was also normal except for a bit of fluid around your kidneys which is probably chronic and related to your chronic kidney disease. You may have had a kidney stone this afternoon that has already passed. After our assessment, we do not believe you are having a medical emergency at this time, and we believe you are safe to go home. Please take [id number] medications for the pain, and if you have burning on urination you can take an ajca-ain-trrgbnx medication from the pharmazy called Azo. You need to see PCP tomorrow morning in follow up. Call their clinic [facility] (they are expecting your call), tell them you were seen in the ER, and tell them you need an appointment. Please come back to the ER at any time, 24 hours a day, for any new or worsening symptoms, like worsened abdominal pain , fever, inability to have a bowel movement or pass gas, chest pain, palpitations, or other symptoms. If you are having severe or life threatening symptoms, or symptoms that make it unsafe to drive or have someone drive you, please call 911. - Post Discharge Activity
[2018-06-02 20:18] VITALS: BP 156/84; PULSE 69; TEMP 97.8
--- NOTE | 2018-06-02 21:34 | PDOC ---
*Physical Exam - Vital Signs Last Vital Signs Temp Pulse Resp BP Pulse Ox 97.8 F 69 16 156/84 99 06/02/18 20:16 06/02/18 20:16 06/02/18 20:16 06/02/18 20:16 06/02/18 20:16 06/02/18 19:15 Care endorsed to me by Dr. Guy at the end of his shift. Patient is an 82 YOM with h/o abdominal hernia, DM, HTN, HLD who p/w burning abdominal pain. Pending CT then will decide on dispo. ED Treatment Course - LABORATORY CBC & Chemistry Diagram: 06/02/18 17:45 06/02/18 17:45 - ADDITIONAL ORDERS Additional order review: Laboratory Results 06/02/18 06/02/18 06/02/18 17:45 17:45 17:45 Sodium 144 Potassium 4.3 Chloride 108 H Carbon Dioxide 29 Anion Gap 7 L BUN 28 H Creatinine 2.3 H Creat Clearance w eGFR 27.29 Random Glucose 194 H Lactic Acid 1.7 Calcium 8.4 L Total Bilirubin 0.3 AST 16 D ALT 14 Alkaline Phosphatase 89 Total Protein 6.9 Albumin 3.0 L Lipase 530 H Urine Color Straw Urine Appearance Clear Urine pH 6.0 Ur Specific [place] 1.008 Urine Protein 2+ H Urine Glucose (UA) 2+ H Urine Ketones Negative Urine Blood 1+ H Urine Nitrite Negative Urine Bilirubin Negative Urine Urobilinogen Negative Ur Leukocyte Esterase Negative Urine WBC (Auto) 1 Urine RBC (Auto) 3 Calcium Oxalate Crystal Rare Urine Mucus Rare 06/02/18 17:45 RBC 3.51 L MCV 100.2 H MCHC 33.9 RDW 13.4 MPV 8.1 Neutrophils % 70.9 Lymphocytes % 18.3 Monocytes % 8.8 Eosinophils % 1.6 Basophils % 0.4 - Medications Given in the ED: ED Medications Discontinued Medications Generic Name Dose Route Start Last Admin Trade Name Freq PRN Reason Stop Dose Admin Morphine Sulfate 2 mg 06/02/18 17:52 06/02/18 18:15 Morphine Injection - IVPUSH 06/02/18 17:53 2 mg ONCE ONE Administration Medical Decision Making - Medical Decision Making Elderly Pt p/w lower abdominal pain/burning. Initial Vital Signs Temp Pulse Resp BP Pulse Ox 97.7 F 70 18 143/75 99 06/02/18 16:20 06/02/18 16:20 06/02/18 16:20 06/02/18 16:20 06/02/18 16:20 CT: Bilateral perinephric fat stranding which could be chronic and is nonspecific. Otherwise unremarkable non-con A/P CT. Laboratory Tests 06/02/18 06/02/18 06/02/18 17:45 17:45 17:45 WBC 8.9 RBC 3.51 L Hgb 11.9 Hct 35.2 L MCV 100.2 H MCH 34.0 H MCHC 33.9 RDW 13.4 Plt Count 181 MPV 8.1 Absolute Neuts (auto) 6.3 Neutrophils % 70.9 Lymphocytes % 18.3 Monocytes % 8.8 Eosinophils % 1.6 Basophils % 0.4 Nucleated RBC % 0 Sodium 144 Potassium 4.3 Chloride 108 H Carbon Dioxide 29 Anion Gap 7 L BUN 28 H Creatinine 2.3 H Creat Clearance w eGFR 27.29 Random Glucose 194 H Lactic Acid Calcium 8.4 L Total Bilirubin 0.3 AST 16 D ALT 14 Alkaline Phosphatase 89 Total Protein 6.9 Albumin 3.0 L Lipase 530 H Urine Color Straw Urine Appearance Clear Urine pH 6.0 Ur Specific [place] 1.008 Urine Protein 2+ H Urine Glucose (UA) 2+ H Urine Ketones Negative Urine Blood 1+ H Urine Nitrite Negative Urine Bilirubin Negative Urine Urobilinogen Negative Ur Leukocyte Esterase Negative Urine WBC (Auto) 1 Urine RBC (Auto) 3 Calcium Oxalate Crystal Rare Urine Mucus Rare 06/02/18 17:45 WBC RBC Hgb Hct MCV MCH MCHC RDW Plt Count MPV Absolute Neuts (auto) Neutrophils % Lymphocytes % Monocytes % Eosinophils % Basophils % Nucleated RBC % Sodium Potassium Chloride Carbon Dioxide Anion Gap BUN Creatinine Creat Clearance w eGFR Random Glucose Lactic Acid 1.7 Calcium Total Bilirubin AST ALT Alkaline Phosphatase Total Protein Albumin Lipase Urine Color Urine Appearance Urine pH Ur Specific [place] Urine Protein Urine Glucose (UA) Urine Ketones Urine Blood Urine Nitrite Urine Bilirubin Urine Urobilinogen Ur Leukocyte Esterase Urine WBC (Auto) Urine RBC (Auto) Calcium Oxalate Crystal Urine Mucus Vital Signs Temperature 97.8 F 06/02/18 20:16 Pulse Rate 69 06/02/18 20:16 Respiratory Rate 16 06/02/18 20:16 Blood Pressure 156/84 06/02/18 20:16 O2 Sat by Pulse Oximetry (%) 99 06/02/18 20:16 DISCHARGE The Pt has gotten significant relief of symptoms with ED medications. Workup is not concerning for emergency-level pathology at this time. The Pt is appropriate for discharge with close outpatient follow up. The family is comfortable with this plan and will follow up with their PCP tomorrow. They agree to return to the ED with any new/worsening symptoms. Specific return precautions are discussed and they will come back to the ER if necessary. *DC/Admit/Observation/Transfer Diagnosis at time of Disposition: Elevated lipase Abdominal pain Qualifiers: Abdominal location: unspecified location Qualified Code(s): R10.9 - Unspecified abdominal pain Chronic kidney disease Qualifiers: Chronic kidney disease stage: unspecified stage Qualified Code(s): N18.9 - Chronic kidney disease, unspecified Diarrhea Qualifiers: Diarrhea type: unspecified type Qualified Code(s): R19.7 - Diarrhea, unspecified - Discharge Dispostion Disposition: HOME Condition at time of disposition: Stable Decision to Admit order: No - Referrals Referrals: Don Patterson MD [Primary Care Provider] - - Patient Instructions Additional Instructions: You were seen in the ER for abdominal pain. We did lab work on your blood and urine and found no abnormalities except for a slightly elevated lipase level ( which is an enzyme made by the pancreas). We took an electrocardiogram which showed no concerning findings on your heart activity. We did a chest x-ray which was also normal. We did an abdominal CT scan which was also normal except for a bit of fluid around your kidneys which is probably chronic and related to your chronic kidney disease. You may have had a kidney stone this afternoon that has already passed. After our assessment, we do not believe you are having a medical emergency at this time, and we believe you are safe to go home. Please take [id number]-[id number] medications for the pain, and if you have burning on urination you can take an znay-bua-kwadhzf medication from the pharmazy called Azo. You need to see PCP tomorrow morning in follow up. Call their clinic [facility] (they are expecting your call), tell them you were seen in the ER, and tell them you need an appointment. Please come back to the ER at any time, 24 hours a day, for any new or worsening symptoms, like worsened abdominal pain , fever, inability to have a bowel movement or pass gas, chest pain, palpitations, or other symptoms. If you are having severe or life threatening symptoms, or symptoms that make it unsafe to drive or have someone drive you, please call 911. - Post Discharge Activity
== END 2018-06-02 23:30 | disposition home or self-care (01) ==
LOC: JER 16:14
PROC: 3E033NZ Introduction of Analgesics, Hypnotics, Sedatives into Peripheral Vein, Percutaneous Approach (ICD-10-PCS; principal; 2018-06-02)
DX: R74.8 Abnormal levels of other serum enzymes (principal); R10.9 Unspecified abdominal pain; N18.9 Chronic kidney disease, unspecified; R19.7 Diarrhea, unspecified
CPT/HCPCS: 36415; 74176-TC; 80053; 81003; 81015; 83605; 83690; 85025; 87086; 99282-25

== ENCOUNTER 2018-11-12 16:53 | Inpatient (IN) | payer MEDICARE, OTHER ==
--- NOTE | 2018-11-12 17:10 | PDOC ---
Rapid Medical Evaluation Medical Evaluation: Allergies Allergy/AdvReac Type Severity Reaction Status Date / Time No Known Drug Allergies Allergy Verified 06/02/18 16:22 I have performed a brief in-person evaluation of this patient. The patient presents with a chief complaint of: Hx of umbilical hernia x 3 days , c/o pain at site of hernia; denies fever, n/v; Is also constipated, last BM 3 days Pertinent physical exam findings: In NAD, abdomen soft, slightly distended, no palpable hernia I have ordered the following: Labs The patient will proceed to the ED for further evaluation. 11/12/18 17:08 Discharge Disposition - Referrals Referrals: Don Patterson MD [Primary Care Provider] - - Patient Instructions - Post Discharge Activity
[2018-11-12 17:59] LABS: BASO % 0.2 % (0-2.0); EOS % 0.7 % (0-4.5); HEMATOCRIT 34.5 % (35.4-49); HEMOGLOBIN 11.6 GM/dL (11.7-16.9); LYMPH % 12.2 % (8-40); MCHC 33.8 g/dl (32.0-35.9); MEAN CELL VOLUME 97.8 fl (80-96); MONO % 8.1 % (3.8-10.2); NEUT % 78.8 % (42.8-82.8); PLATELET COUNT 218 K/MM3 (134-434); RBC 3.52 M/mm3 (4.00-5.60); RDW 13.7 % (11.9-15.9); WHITE BLOOD COUNT 11.4 K/mm3 (4.0-10.0)
[2018-11-12 18:32] LABS: ALBUMIN 2.8 g/dl (3.4-5.0); ALK PHOS 79 U/L (45-117); ANION GAP 8 MMOL/L (8-16); BILIRUBIN,TOTAL 0.3 mg/dL (0.2-1); BLOOD UREA NITROGEN 33 mg/dL (7-18); CALCIUM 8.7 mg/dL (8.5-10.1); CHLORIDE 102 mmol/L (98-107); CO2 27 mmol/L (21-32); CREATININE 2.6 mg/dL (0.55-1.3); GLUCOSE,RANDOM 290 mg/dL (74-106); POTASSIUM 3.9 mmol/L (3.5-5.1); SGOT/AST 16 U/L (15-37); SGPT/ALT 18 U/L (13-61); SODIUM 137 mmol/L (136-145); TOT PROT 6.8 g/dl (6.4-8.2)
--- NOTE | 2018-11-12 21:12 | PDOC ---
History of Present Illness - General History Source: Spouse Exam Limitations: Language Barrier (exclusive Somali speaker) - History of Present Illness Initial Comments: Patient is an 83 y/o M w/ PMHx CKD, HLD, CAD s/p PPM, DM, CHF, gout, anemia, GIB , s/p CCY, p/w significant abd pain x 3 days a/w constipation and increasing distention, as well as SOB when body position compresses the abdomen. Additionally notices new ventral protuberance; pain is most focal over this locus. Denies f/c, n/v/d, CP. ROS otherwise negative throughout. 11/12/18 21:06 11/12/18 21:14 <Guicho Eagle - Last Filed: 11/12/18 21:06> <Caitlyn Magana - Last Filed: 11/13/18 00:13> - General Chief Complaint: Pain Stated Complaint: ABD PAIN Time Seen by Provider: 11/12/18 20:39 Past History - Travel Traveled outside of the country in the last 30 days: No Close contact w/someone who was outside of country & ill: No - Past Medical History Anemia: No Asthma: No Cancer: No Cardiac Disorders: Yes (CAD) CVA: No COPD: No CHF: No Dementia: No Diabetes: Yes GI Disorders: No Disorders: Yes (?) HTN: Yes Hypercholesterolemia: Yes Liver Disease: No Seizures: No Thyroid Disease: No - Surgical History Cardiac Surgery: Yes (pacemaker, STENTS) Cholecystectomy: Yes Neurologic Surgery: No Orthopedic Surgery: (Yes, bilateral knee replacement) - Suicide/Smoking/Psychosocial Hx Smoking Status: No Smoking History: Never smoked Have you smoked in the past 12 months: No Number of Cigarettes Smoked Daily: 0 If you are a former smoker, when did you quit?: "long time ago" Hx Alcohol Use: No Drug/Substance Use Hx: No Substance Use Type: None Hx Substance Use Treatment: No <Guicho Eagle - Last Filed: 11/12/18 21:06> <Caitlyn Magana - Last Filed: 11/13/18 00:13> - Past Medical History Allergies/Adverse Reactions: Allergies Allergy/AdvReac Type Severity Reaction Status Date / Time No Known Drug Allergies Allergy Verified 11/12/18 17:08 Home Medications: Ambulatory Orders Atorvastatin Ca [Lipitor] 20 mg PO HS 12/01/15 Ranitidine [Zantac -] 150 mg PO BID 12/01/15 Tamsulosin HCl 0.4 mg PO DAILY 12/01/15 Linaclotide [Linzess] 145 mcg PO DAILY 11/04/16 Linagliptin [Tradjenta] 5 mg PO DAILY 11/04/16 Meclizine HCl [Antivert -] 25 mg PO DAILY PRN 11/04/16 Metoprolol Succinate [Toprol Xl] 25 mg PO DAILY 02/18/17 Apixaban [Eliquis -] 2.5 mg PO BID #30 tablet 04/13/17 Allopurinol [Zyloprim -] 100 mg PO DAILY 09/01/17 Ferrous Sulfate 325 mg PO BID 09/01/17 Pregabalin [Lyrica -] 50 mg PO TID 09/01/17 Tramadol HCl 50 mg PO DAILY PRN MDD 2 04/13/18 Furosemide [Lasix -] 40 mg PO DAILY tablet 04/16/18 Review of Systems - Review of Systems Comments:: As per HPI 11/12/18 21:09 <Guicho Eagle - Last Filed: 11/12/18 21:06> *Physical Exam - Vital Signs Last Vital Signs Temp Pulse Resp BP Pulse Ox 97.9 F 70 24 H 144/67 96 11/12/18 17:09 11/12/18 17:09 11/12/18 17:09 11/12/18 17:09 11/12/18 17:09 - Physical Exam Comments: Gen: A&Ox3, in distress HEENT: wnl CV: paced rhythm, no m/r/g Resp: CTA b/l Abd: hyperactive bowel sounds, distended, central ventral protuberance appears when rising from supine, diffusely tender most focally over protuberance, tympanitic diffusely but most pronounced over protuberance Extremities: 2+ pulses, wwp Neuro: international nurse, motor, sensory systems w/o focal deficit Skin: warm, dry, normal turgor 11/12/18 21:09 <Guicho Eagle - Last Filed: 11/12/18 21:06> - Vital Signs Last Vital Signs Temp Pulse Resp BP Pulse Ox 97.9 F 70 24 H 144/67 96 11/12/18 17:09 11/12/18 17:09 11/12/18 17:09 11/12/18 17:09 11/12/18 17:09 <Caitlyn Magana - Last Filed: 11/13/18 00:13> Moderate Sedation - Procedure Monitoring Vital Signs: Procedure Monitoring Vital Signs Temperature 97.9 F 11/12/18 17:09 Pulse Rate 70 11/12/18 17:09 Respiratory Rate 24 H 11/12/18 17:09 Blood Pressure 144/67 11/12/18 17:09 O2 Sat by Pulse Oximetry (%) 96 11/12/18 17:09 <Guicho Eagle - Last Filed: 11/12/18 21:06> - Procedure Monitoring Vital Signs: Procedure Monitoring Vital Signs Temperature 97.9 F 11/12/18 17:09 Pulse Rate 70 11/12/18 17:09 Respiratory Rate 24 H 11/12/18 17:09 Blood Pressure 144/67 11/12/18 17:09 O2 Sat by Pulse Oximetry (%) 96 11/12/18 17:09 <Caitlyn Magana - Last Filed: 11/13/18 00:13> ED Treatment Course - LABORATORY CBC & Chemistry Diagram: 11/12/18 17:38 11/12/18 17:38 - ADDITIONAL ORDERS Additional order review: Laboratory Results 11/12/18 17:38 Sodium 137 Potassium 3.9 Chloride 102 Carbon Dioxide 27 Anion Gap 8 BUN 33 H Creatinine 2.6 H Creat Clearance w eGFR 23.63 Random Glucose 290 H Calcium 8.7 Total Bilirubin 0.3 AST 16 ALT 18 Alkaline Phosphatase 79 Total Protein 6.8 Albumin 2.8 L 11/12/18 17:38 RBC 3.52 L MCV 97.8 H MCHC 33.8 RDW 13.7 MPV 8.0 Neutrophils % 78.8 Lymphocytes % 12.2 D Monocytes % 8.1 Eosinophils % 0.7 Basophils % 0.2 - RADIOLOGY Radiology Studies Ordered: Category Date Time Status ABDOMEN & PELVIS CT W/O CONTR [CT] Stat CT Scan 11/12/18 21:05 Ordered <Guicho Eagle - Last Filed: 11/12/18 21:06> - LABORATORY CBC & Chemistry Diagram: 11/12/18 17:38 11/12/18 17:38 - ADDITIONAL ORDERS Additional order review: Laboratory Results 11/12/18 11/12/18 11/12/18 21:19 17:38 17:38 WBC 11.4 H RBC 3.52 L Hgb 11.6 L Hct 34.5 L MCV 97.8 H MCH 33.0 MCHC 33.8 RDW 13.7 Plt Count 218 D MPV 8.0 Absolute Neuts (auto) 9.0 H Neutrophils % 78.8 Lymphocytes % 12.2 D Monocytes % 8.1 Eosinophils % 0.7 Basophils % 0.2 Nucleated RBC % 0 Sodium 137 Potassium 3.9 Chloride 102 Carbon Dioxide 27 Anion Gap 8 BUN 33 H Creatinine 2.6 H Creat Clearance w eGFR 23.63 Random Glucose 290 H Lactic Acid 0.9 Calcium 8.7 Total Bilirubin 0.3 AST 16 ALT 18 Alkaline Phosphatase 79 Total Protein 6.8 Albumin 2.8 L 11/12/18 17:38 RBC 3.52 L MCV 97.8 H MCHC 33.8 RDW 13.7 MPV 8.0 Neutrophils % 78.8 Lymphocytes % 12.2 D Monocytes % 8.1 Eosinophils % 0.7 Basophils % 0.2 <Caitlyn Magana - Last Filed: 11/13/18 00:13> Medical Decision Making - Medical Decision Making Initial labs had been obtained at time of encounter, remarkable for possible SHON on CKD (Cr 2.6 vs baseline 2.3). Otherwise unremarkable, afebrile, hemodynamically stable. Abdominal pain tenderness is significant. Ordered CT a/ p w/o contrast and lactic acid. 11/12/18 21:13 <Guicho Eagle - Last Filed: 11/12/18 21:06> *DC/Admit/Observation/Transfer <Guicho Eagle - Last Filed: 11/12/18 21:06> - Discharge Dispostion Decision to Admit order: Yes <Caitlyn Magana - Last Filed: 11/13/18 00:13> Diagnosis at time of Disposition: Abdominal pain Qualifiers: Abdominal location: epigastric Qualified Code(s): R10.13 - Epigastric pain Diabetes mellitus type II, controlled Qualifiers: Diabetes mellitus custodial insulin use: without pier runner use Diabetes mellitus complication status: with hyperglycemia Qualified Code(s): E11.65 - Type 2 diabetes mellitus with hyperglycemia Chronic kidney disease Qualifiers: Chronic kidney disease stage: unspecified stage Qualified Code(s): N18.9 - Chronic kidney disease, unspecified Acute pancreatitis Qualifiers: Pancreatitis type: other Acute pancreatitis complication: unspecified Qualified Code(s): K85.80 - Other acute pancreatitis without necrosis or infection - Discharge Dispostion Condition at time of disposition: Good - Referrals Referrals: oDn Patterson MD [Primary Care Provider] - - Patient Instructions - Post Discharge Activity
[2018-11-12] MEDS ORDERED: DEXTROSE 5%-0.45% SALINE 1,000 ML IV SCH (23:45)
[2018-11-12] MEDS ORDERED: morphine CARPU-JECT 2 MG/1 ML DISP.SYRIN IVPUSH ONE (23:48)
--- NOTE | 2018-11-12 23:52 | PDOC ---
Attending Attestation - Resident Resident Name: Guicho Eagle - ED Attending Attestation I have performed the following: I have examined & evaluated the patient, The case was reviewed & discussed with the resident, I agree w/resident's findings & plan, Exceptions are as noted - HPI HPI: 11/12/18 23:51 83 yo male p/w worsening upper abdominal pain since Sunday - Physicial Exam PE: 11/13/18 00:04 83 yo male p/w epigastric abdominal pain head ncat neck supple lungs ctab /l cvs [id number] abd ++tenderness in epigastric area, +hyperactive BS no flank pain ext no edema skin warm and dry neuro axox3,no gross focal deficits 11/13/18 00:08 - Medical Decision Making 11/13/18 00:06 ct scan abd/pel: ACUTE PANCREATITIS - there is development of mild edematous swelling of the pancreatic head with associated mild peripancreatic soft tissue edema consistent with acute pancreatitis 11/13/18 00:09 pt has chronic renal insuffiency with creatinine elevated to 2.6 and this is consistent with his baseline level -there is a mild leukocytosis Dr Rick was contacted and agreed to write admitting order for med/surg pt receiving IVF,morphine
[2018-11-13] MEDS ORDERED: MORPHINE SULFATE 2 MG/ML VIAL ONE (00:07)
[2018-11-13] MEDS ORDERED: CEFTRIAXONE 1 GM in DEXTROSE 5%-WATER - 100 ML IVPB ONE (01:03)
[2018-11-13] MEDS ORDERED: CEFTRIAXONE 1 GM/50 ML BAG ONE (01:09)
[2018-11-13] MEDS ORDERED: MECLIZINE HCL 25 MG TABLET (FP) PO PRN (02:56)
[2018-11-13] MEDS ORDERED: ONDANSETRON 4 MG/2 ML VIAL IVPUSH PRN (02:58)
[2018-11-13] MEDS ORDERED: DEXTROSE 5%-0.45% SALINE 1,000 ML IV SCH ×2 (03:00)
[2018-11-13] MEDS ORDERED: HYDROmorphone HCL CARPU-JECT 2 MG/1 ML DISP.SYRIN IVPB STA (03:04)
[2018-11-13] MEDS ORDERED: HYDROmorphone HCl 2 MG/ML VIAL ONE (03:09)
[2018-11-13] MEDS ORDERED: PREGABALIN 50 MG CAPSULE ONE (06:08)
[2018-11-13] MEDS: PREGABALIN 50 MG CAPSULE PO SCH ×2 (06:14→22:14)
[2018-11-13 06:16] LABS: AMYLASE 132 U/L (25-115); LIPASE 2589 U/L (73-393)
[2018-11-13] MEDS ORDERED: INSULIN (NOVOLOG) ASPART 100 UNITS/ML 10ML VIAL ONE ×2 (06:16→11:40)
[2018-11-13] MEDS: INSULIN SLIDING SCALE (NOVOLOG) 1 VIAL SQ SCH ×4 (06:23→22:08)
[2018-11-13] MEDS: TAMSULOSIN HCL 0.4 MG CAP PO SCH (08:36)
[2018-11-13] MEDS: APIXABAN 2.5 MG TABLET PO SCH ×2 (09:36→22:15)
[2018-11-13] MEDS: FERROUS SO4 325 MG TABLET (FP) PO SCH ×2 (09:36→22:15)
--- NOTE | 2018-11-13 09:55 | EKG ---
Test Reason : Blood Pressure : / mmHG Vent. Rate : 070 BPM Atrial Rate : 241 BPM P-R Int : 000 ms QRS Dur : 162 ms QT Int : 450 ms P-R-T Axes : 000 -62 100 degrees QTc Int : 486 ms Ventricular-paced rhythm ABNORMAL ECG WHEN COMPARED WITH ECG OF 13-APR-2018 10:59, PREMATURE VENTRICULAR COMPLEXES ARE NO LONGER PRESENT VENT. RATE HAS DECREASED BY 2 BPM Confirmed by CARLO SIMMS, ANGELITO ([id number]) on 11/13/2018 9:54:42 AM Referred By: Confirmed By:ANGELITO MATOS MD
[2018-11-13] MEDS ORDERED: FUROSEMIDE 40 MG TABLET (FP) PO SCH (10:00)
[2018-11-13] MEDS: ALLOPURINOL 100 MG TABLET (FP) PO SCH (10:00)
[2018-11-13] MEDS: metoPROLOL SUCCINATE 25 MG TAB.SR.24H (FP) PO SCH (10:00)
--- NOTE | 2018-11-13 12:24 | CON.GI ---
Consult Consult Specialty:: Gastroenterology Referred by:: Dr. Mecca Rick Reason for Consultation:: Acute Pancreatitis - History of Present Illness Chief Complaint: Epigastric pain with nausea and vomiting History of Present Illness: Patient is an 83 y/o male who presented to ER with epigastric pain with nausea. He is admitted for further management of his acute pancreatitis. Overnight he received IVF, howevere this morning abdominal pain persist. This is associated with dysphagia, early satiety, nausea, and melena. Patient also states he has experienced a 30lb weight loss over 3 months. 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 - History Source History Provided By: Patient - Past Medical History Cardio/Vascular: Yes: AFIB, CAD, CHF, HTN, Hyperlipdemia, Other (CHB s/p PPM NSVT) Gastrointestinal: Yes: Constipation, GERD, GI Bleed Renal/: Yes: BPH, Other (CKD) Musculoskeletal: Yes: Osteoarthritis, Other (Gout) Endocrine: Yes: Diabetes Mellitus - Past Surgical History Past Surgical History: Yes: Cholecystectomy, Permanent Pacemaker - Alcohol/Substance Use Hx Alcohol Use: No - Smoking History Smoking history: Never smoked Have you smoked in the past 12 months: No Aproximately how many cigarettes per day: 0 If you are a former smoker, when did you quit?: "long time ago" - Social History ADL: Independent History of Recent Travel: No Home Medications - Allergies Allergies/Adverse Reactions: Allergies Allergy/AdvReac Type Severity Reaction Status Date / Time No Known Drug Allergies Allergy Verified 11/12/18 17:08 - Home Medications Home Medications: Ambulatory Orders Atorvastatin Ca [Lipitor] 20 mg PO HS 12/01/15 Ranitidine [Zantac -] 150 mg PO BID 12/01/15 Tamsulosin HCl 0.4 mg PO DAILY 12/01/15 Linaclotide [Linzess] 145 mcg PO DAILY 11/04/16 Linagliptin [Tradjenta] 5 mg PO DAILY 11/04/16 Meclizine HCl [Antivert -] 25 mg PO DAILY PRN 11/04/16 Metoprolol Succinate [Toprol Xl] 25 mg PO DAILY 02/18/17 Apixaban [Eliquis -] 2.5 mg PO BID #30 tablet 04/13/17 Allopurinol [Zyloprim -] 100 mg PO DAILY 11/04/17 Ferrous Sulfate 325 mg PO BID 09/01/17 Pregabalin [Lyrica -] 50 mg PO TID 09/01/17 Tramadol HCl 50 mg PO DAILY PRN MDD 2 04/13/18 Furosemide [Lasix -] 40 mg PO DAILY tablet 04/16/18 Physical Exam-GI Vital Signs: Vital Signs Temperature 98.3 F 11/13/18 09:35 Pulse Rate 75 11/13/18 09:35 Respiratory Rate 16 11/13/18 09:35 Blood Pressure 149/79 11/13/18 09:35 O2 Sat by Pulse Oximetry (%) 96 11/13/18 09:35 Constitutional: Yes: Well Nourished, No Distress Eyes: Yes: Conjunctiva Clear Cardiovascular: Yes: Regular Rate and Rhythm Respiratory: Yes: Regular, CTA Bilaterally Gastrointestinal Inspection: Yes: Distention ...Auscultate: Yes: Normoactive Bowel Sounds ...Palpate: Yes: Soft, Tenderness, Epigastium. No: Firm/Rigid, Guarding, Hepatomegaly, Mass, Pulsatile Mass, Splenomegaly, Tenderness ...Percussion: Yes: Tympanitic Labs: CBC, BMP 11/12/18 17:38 11/12/18 17:38 Hepatic Panel Total Bilirubin 0.3 mg/dL (0.2-1) 11/12/18 17:38 AST 16 U/L (15-37) 11/12/18 17:38 ALT 18 U/L (13-61) 11/12/18 17:38 Alkaline Phosphatase 79 U/L (45-117) 11/12/18 17:38 Albumin 2.8 g/dl (3.4-5.0) L 11/12/18 17:38 Home Medications Medication Instructions Recorded Atorvastatin Ca [Lipitor] 20 mg PO HS 12/01/15 Ranitidine [Zantac -] 150 mg PO BID 12/01/15 Tamsulosin HCl 0.4 mg PO DAILY 12/01/15 Linaclotide [Linzess] 145 mcg PO DAILY 11/04/16 Linagliptin [Tradjenta] 5 mg PO DAILY 11/04/16 Meclizine HCl [Antivert -] 25 mg PO DAILY PRN 11/04/16 Metoprolol Succinate [Toprol Xl] 25 mg PO DAILY 02/18/17 Apixaban [Eliquis -] 2.5 mg PO BID #30 tablet 04/13/17 Allopurinol [Zyloprim -] 100 mg PO DAILY 09/01/17 Ferrous Sulfate 325 mg PO BID 09/01/17 Pregabalin [Lyrica -] 50 mg PO TID 09/01/17 Tramadol HCl 50 mg PO DAILY PRN MDD 2 04/13/18 Furosemide [Lasix -] 40 mg PO DAILY tablet 04/16/18 Home Medication List Medication Instructions Recorded Confirmed Type Atorvastatin Ca [Lipitor] 20 mg PO HS 12/01/15 11/12/18 History Ranitidine [Zantac -] 150 mg PO BID 12/01/15 11/12/18 History Tamsulosin HCl 0.4 mg PO DAILY 12/01/15 11/12/18 History Linaclotide [Linzess] 145 mcg PO DAILY 11/04/16 11/12/18 History Linagliptin [Tradjenta] 5 mg PO DAILY 11/04/16 11/12/18 History Meclizine HCl [Antivert -] 25 mg PO DAILY PRN 11/04/16 11/12/18 History Metoprolol Succinate [Toprol Xl] 25 mg PO DAILY 02/18/17 11/12/18 History Allopurinol [Zyloprim -] 100 mg PO DAILY 09/01/17 11/12/18 History Ferrous Sulfate 325 mg PO BID 09/01/17 11/12/18 History Pregabalin [Lyrica -] 50 mg PO TID 09/01/17 11/12/18 History Tramadol HCl 50 mg PO DAILY PRN MDD 2 04/13/18 11/12/18 History Active Medications Generic Name Dose Route Start Last Admin Trade Name Freq PRN Reason Stop Dose Admin Allopurinol 100 mg 11/13/18 10:00 11/13/18 10:00 Zyloprim - PO 100 mg DAILY [facility] Administration Apixaban 2.5 mg 11/13/18 10:00 11/13/18 09:36 Eliquis - PO 2.5 mg BID [facility] Administration Atorvastatin Calcium 20 mg 11/13/18 22:00 Lipitor - PO HS COLE Ferrous Sulfate 325 mg 11/13/18 10:00 11/13/18 09:36 Feosol - PO 325 mg BID [facility] Administration Furosemide 40 mg 11/13/18 10:00 11/13/18 09:37 Lasix - PO 40 mg DAILY [facility] Administration Dextrose/Sodium Chloride 1,000 mls @ 75 mls/hr 11/13/18 03:00 11/13/18 03:01 D5-1/2ns - IV 75 mls/hr ASDIR [facility] Administration Metronidazole 500 mg in 100 mls @ 100 mls/hr 11/13/18 03:00 11/13/18 11:03 Flagyl 500mg Premixed Ivpb - IVPB 100 mls/hr Q8H-IV [facility] Administration Pantoprazole Sodium 40 mg/ 100 mls @ 200 mls/hr 11/13/18 22:00 Sodium Chloride IVPB BID [facility] Levofloxacin 250 mg in 50 mls @ 50 mls/hr 11/14/18 10:00 Levaquin 250 Mg Premixed Ivpb - IVPB DAILY [facility] Insulin Aspart 1 vial 11/13/18 07:00 11/13/18 17:50 Novolog Vial Sliding Scale - SQ 4 unit ACHS [facility] Administration Protocol Meclizine HCl 25 mg 11/13/18 02:56 11/13/18 09:38 Antivert - PO 25 mg DAILY PRN Administration dizziness Metoclopramide HCl 10 mg 11/13/18 12:30 Reglan Injection - IVPB Q8H-IV [facility] Metoprolol Succinate 25 mg 11/13/18 10:00 11/13/18 10:00 Toprol Xl - PO 25 mg DAILY [facility] Administration Morphine Sulfate 2 mg 11/13/18 02:59 Morphine Sulfate IM Q6H PRN pain Ondansetron HCl 4 mg 11/13/18 12:26 Zofran Injection IVPB Q4H PRN NAUSEA AND/OR VOMITING Pregabalin 50 mg 11/13/18 06:00 11/13/18 06:14 Lyrica - PO 50 mg TID [facility] Administration Tamsulosin HCl 0.4 mg 11/13/18 08:30 11/13/18 08:36 Flomax - PO 0.4 mg DAILY@0830 [facility] Administration Problem List - Problems (1) Acute pancreatitis Assessment/Plan: -IV Protonix BID -IVF for hydration -reglan 10mg IVPB q8h -zofran IVPB -CEA, CA 19-9 Code(s): K85.90 - ACUTE PANCREATITIS WITHOUT NECROSIS OR INFECTION, UNSP Qualifiers: Pancreatitis type: other Acute pancreatitis complication: unspecified Qualified Code(s): K85.80 - Other acute pancreatitis without necrosis or infection
[2018-11-13] MEDS ORDERED: ONDANSETRON 4 MG/2 ML VIAL IVPB PRN (12:26)
[2018-11-13] MEDS: METOCLOPRAMIDE HCL INJECTION 10 MG/2 ML VIAL IVPB SCH (20:31)
--- NOTE | 2018-11-13 21:52 | HP ---
Admitting History and Physical - Past Medical History Cardiovascular: Yes: AFIB, CAD, CHF, HTN, Hyperlipdemia, Other (CHB s/p PPM NSVT ) Gastrointestinal: Yes: Constipation, GERD, GI Bleed Renal/: Yes: BPH, Other (CKD) Musculoskeletal: Yes: Osteoarthritis, Other (Gout) Endocrine: Yes: Diabetes Mellitus - Past Surgical History Past Surgical History: Yes: Cholecystectomy, Permanent Pacemaker - Smoking History Smoking history: Never smoked Have you smoked in the past 12 months: No Aproximately how many cigarettes per day: 0 If you are a former smoker, when did you quit?: "long time ago" - Alcohol/Substance Use Hx Alcohol Use: No - Social History ADL: Independent History of Recent Travel: No Home Medications - Allergies Allergies/Adverse Reactions: Allergies Allergy/AdvReac Type Severity Reaction Status Date / Time No Known Drug Allergies Allergy Verified 11/12/18 17:08 - Home Medications Home Medications: Ambulatory Orders Atorvastatin Ca [Lipitor] 20 mg PO HS 12/01/15 Ranitidine [Zantac -] 150 mg PO BID 12/01/15 Tamsulosin HCl 0.4 mg PO DAILY 12/01/15 Linaclotide [Linzess] 145 mcg PO DAILY 11/04/16 Linagliptin [Tradjenta] 5 mg PO DAILY 11/04/16 Meclizine HCl [Antivert -] 25 mg PO DAILY PRN 11/04/16 Metoprolol Succinate [Toprol Xl] 25 mg PO DAILY 02/18/17 Apixaban [Eliquis -] 2.5 mg PO BID #30 tablet 04/13/17 Allopurinol [Zyloprim -] 100 mg PO DAILY 09/01/17 Ferrous Sulfate 325 mg PO BID 09/01/17 Pregabalin [Lyrica -] 50 mg PO TID 09/01/17 Tramadol HCl 50 mg PO DAILY PRN MDD 2 04/13/18 Furosemide [Lasix -] 40 mg PO DAILY tablet 04/16/18 Physical Examination Vital Signs: Vital Signs Temperature 97.5 F L 11/13/18 16:57 Pulse Rate 71 11/13/18 16:57 Respiratory Rate 20 11/13/18 16:57 Blood Pressure 154/72 11/13/18 16:57 O2 Sat by Pulse Oximetry (%) 97 11/13/18 17:21 Labs: CBC, BMP 11/12/18 17:38 11/12/18 17:38
[2018-11-13] MEDS ORDERED: PANTOPRAZOLE SODIUM 40 MG in SODIUM CHLORIDE 100 ML IVPB SCH (22:00)
[2018-11-13] MEDS: ATORVASTATIN CA 20 MG TABLET (FP) PO SCH (22:14)
[2018-11-13] MEDS: MORPHINE SULFATE 2 MG/ML VIAL IM PRN (22:15)
[2018-11-13] MEDS: PANTOPRAZOLE SODIUM 40 MG VIAL IVPUSH SCH (22:53)
[2018-11-14] MEDS: METOCLOPRAMIDE HCL INJECTION 10 MG/2 ML VIAL IVPB SCH ×3 (02:00→17:33)
[2018-11-14] MEDS: MORPHINE SULFATE 2 MG/ML VIAL IM PRN (04:29)
[2018-11-14] MEDS: PREGABALIN 50 MG CAPSULE PO SCH ×3 (05:57→21:23)
[2018-11-14] MEDS: INSULIN SLIDING SCALE (NOVOLOG) 1 VIAL SQ SCH ×4 (06:21→22:25)
[2018-11-14 07:44] LABS: BASO % 0.2 % (0-2.0); EOS % 0.6 % (0-4.5); HEMATOCRIT 35.4 % (35.4-49); HEMOGLOBIN 11.9 GM/dL (11.7-16.9); LYMPH % 11.3 % (8-40); MCH 33.1 pg (25.7-33.7); MCHC 33.5 g/dl (32.0-35.9); MEAN CELL VOLUME 98.8 fl (80-96); MEAN PLT VOLUME 8.3 fl (7.5-11.1); MONO % 7.9 % (3.8-10.2); PLATELET COUNT 206 K/MM3 (134-434); RBC 3.59 M/mm3 (4.00-5.60); RDW 13.5 % (11.9-15.9); WHITE BLOOD COUNT 11.2 K/mm3 (4.0-10.0)
[2018-11-14] MEDS: DEXTROSE 5%-0.45% SALINE 1,000 ML IV SCH (08:32)
--- NOTE | 2018-11-14 09:04 | PN ---
GI Progress Note Subjective: Patient examined lying in bed. Complain of epigastric pain but denies nausea, vomiting, diarrhea. - Objective Vital Signs: Vital Signs Temperature 98.3 F 11/14/18 06:00 Pulse Rate 70 11/14/18 06:00 Respiratory Rate 18 11/14/18 06:00 Blood Pressure 141/71 11/14/18 06:00 O2 Sat by Pulse Oximetry (%) 97 11/13/18 21:00 Constitutional: No Distress, Calm Eyes: Yes: Conjunctiva Clear Cardiovascular: Yes: Regular Rate and Rhythm Respiratory: Yes: Regular, CTA Bilaterally Gastrointestinal Inspection: Yes: Distention ...Palpate: Yes: Soft, Tenderness (generalized) ...Percussion: Yes: Other (high tympany) Neurological: Yes: Alert Labs: CBC, BMP 11/14/18 07:00 Problem List - Problems (1) Acute pancreatitis Code(s): K85.90 - ACUTE PANCREATITIS WITHOUT NECROSIS OR INFECTION, UNSP Qualifiers: Pancreatitis type: other Acute pancreatitis complication: unspecified Qualified Code(s): K85.80 - Other acute pancreatitis without necrosis or infection
[2018-11-14] MEDS ORDERED: PT OWN MED DRAWER 7, Y5N ONE ×2 (09:08→17:54)
[2018-11-14 09:26] LABS: ALBUMIN 2.5 g/dl (3.4-5.0); ALK PHOS 76 U/L (45-117); ANION GAP 9 MMOL/L (8-16); BLOOD UREA NITROGEN 27 mg/dL (7-18); CALCIUM 8.2 mg/dL (8.5-10.1); CHLORIDE 101 mmol/L (98-107); CO2 29 mmol/L (21-32); CREATININE 2.2 mg/dL (0.55-1.3); GLUCOSE,RANDOM 231 mg/dL (74-106); POTASSIUM 3.8 mmol/L (3.5-5.1); SGOT/AST 12 U/L (15-37); SGPT/ALT 15 U/L (13-61); SODIUM 139 mmol/L (136-145); TOT PROT 6.2 g/dl (6.4-8.2)
[2018-11-14 11:21] LABS: AMYLASE 100 U/L (25-115); LIPASE 1593 U/L (73-393)
[2018-11-14] MEDS ORDERED: INSULIN (NOVOLOG) ASPART 100 UNITS/ML 10ML VIAL ONE (12:27)
[2018-11-14] MEDS: TAMSULOSIN HCL 0.4 MG CAP PO SCH (12:29)
[2018-11-14] MEDS: metoPROLOL SUCCINATE 25 MG TAB.SR.24H (FP) PO SCH (12:29)
[2018-11-14] MEDS: FERROUS SO4 325 MG TABLET (FP) PO SCH ×2 (12:31→21:23)
[2018-11-14] MEDS: ALLOPURINOL 100 MG TABLET (FP) PO SCH (12:32)
[2018-11-14] MEDS: APIXABAN 2.5 MG TABLET PO SCH ×2 (12:33→21:23)
[2018-11-14] MEDS: PANTOPRAZOLE SODIUM 40 MG VIAL IVPUSH SCH ×2 (13:16→21:23)
[2018-11-14] MEDS: MORPHINE SULFATE 2 MG/ML VIAL IVPUSH PRN ×2 (13:19→21:27)
[2018-11-14 15:51] VITALS: BMI 33.2
--- NOTE | 2018-11-14 17:33 | PN ---
Progress Note, Physician - Current Medication List Current Medications: Active Medications Allopurinol (Zyloprim -) 100 mg PO DAILY [facility] Last Admin: 11/14/18 12:32 Dose: 100 mg Apixaban (Eliquis -) 2.5 mg PO BID [facility] Last Admin: 11/14/18 12:33 Dose: 2.5 mg Atorvastatin Calcium (Lipitor -) 20 mg PO HS [facility] Last Admin: 11/13/18 22:14 Dose: 20 mg Ferrous Sulfate (Feosol -) 325 mg PO BID [facility] Last Admin: 11/14/18 12:31 Dose: 325 mg Metronidazole (Flagyl 500mg Premixed Ivpb -) 500 mg in 100 mls @ 100 mls/hr IVPB Q8H-IV [facility] Last Admin: 11/14/18 11:44 Dose: 100 mls/hr Levofloxacin (Levaquin 250 Mg Premixed Ivpb -) 250 mg in 50 mls @ 50 mls/hr IVPB DAILY [facility] Last Admin: 11/14/18 13:26 Dose: 50 mls/hr Dextrose/Sodium Chloride (D5-1/2ns -) 1,000 mls @ 125 mls/hr IV ASDIR [facility] Last Admin: 11/14/18 08:32 Dose: 125 mls/hr Insulin Aspart (Novolog Vial Sliding Scale -) 1 vial SQ ACHS [facility]; Protocol Last Admin: 11/14/18 16:22 Dose: 4 unit Meclizine HCl (Antivert -) 25 mg PO DAILY PRN PRN Reason: dizziness Last Admin: 11/13/18 09:38 Dose: 25 mg Metoclopramide HCl (Reglan Injection -) 10 mg IVPB Q8H-IV [facility] Last Admin: 11/14/18 09:26 Dose: 10 mg Metoprolol Succinate (Toprol Xl -) 25 mg PO DAILY [facility] Last Admin: 11/14/18 12:29 Dose: 25 mg Morphine Sulfate (Morphine Sulfate) 2 mg IM Q6H PRN PRN Reason: pain Last Admin: 11/14/18 04:29 Dose: 2 mg Morphine Sulfate (Morphine Sulfate) 2 mg IVPUSH Q6H PRN PRN Reason: PAIN LEVEL 6-10 Last Admin: 11/14/18 13:19 Dose: 2 mg Ondansetron HCl (Zofran Injection) 4 mg IVPB Q4H PRN PRN Reason: NAUSEA AND/OR VOMITING Pantoprazole Sodium (Protonix Iv) 40 mg IVPUSH BID [facility] Last Admin: 11/14/18 13:16 Dose: 40 mg Pregabalin (Lyrica -) 50 mg PO TID [facility] Last Admin: 11/14/18 15:22 Dose: 50 mg Tamsulosin HCl (Flomax -) 0.4 mg PO DAILY@0830 [facility] Last Admin: 11/14/18 12:29 Dose: 0.4 mg - Objective Vital Signs: Vital Signs Temperature 98.3 F 11/14/18 15:22 Pulse Rate 71 11/14/18 15:22 Respiratory Rate 18 11/14/18 15:22 Blood Pressure 142/74 11/14/18 15:22 O2 Sat by Pulse Oximetry (%) 97 11/13/18 21:00 Labs: CBC, BMP 11/14/18 07:00 11/14/18 07:00
[2018-11-14] MEDS: ATORVASTATIN CA 20 MG TABLET (FP) PO SCH (21:23)
[2018-11-15] MEDS: METOCLOPRAMIDE HCL INJECTION 10 MG/2 ML VIAL IVPB SCH ×3 (01:30→17:04)
[2018-11-15] MEDS: PREGABALIN 50 MG CAPSULE PO SCH ×3 (05:50→22:56)
[2018-11-15 06:58] LABS: BASO % 0.2 % (0-2.0); EOS % 0.8 % (0-4.5); HEMATOCRIT 34.1 % (35.4-49); HEMOGLOBIN 11.5 GM/dL (11.7-16.9); LYMPH % 11.4 % (8-40); MCH 33.1 pg (25.7-33.7); MCHC 33.7 g/dl (32.0-35.9); MEAN CELL VOLUME 98.2 fl (80-96); MEAN PLT VOLUME 8.1 fl (7.5-11.1); MONO % 9.2 % (3.8-10.2); NEUT % 78.4 % (42.8-82.8); PLATELET COUNT 221 K/MM3 (134-434); RBC 3.47 M/mm3 (4.00-5.60); RDW 13.3 % (11.9-15.9); WHITE BLOOD COUNT 11.8 K/mm3 (4.0-10.0)
[2018-11-15 07:55] LABS: ALBUMIN 2.4 g/dl (3.4-5.0); ALK PHOS 69 U/L (45-117); ANION GAP 6 MMOL/L (8-16); BILIRUBIN,TOTAL 0.6 mg/dL (0.2-1); BLOOD UREA NITROGEN 23 mg/dL (7-18); CALCIUM 7.9 mg/dL (8.5-10.1); CHLORIDE 100 mmol/L (98-107); CO2 30 mmol/L (21-32); CREATININE 2.1 mg/dL (0.55-1.3); GLUCOSE,RANDOM 235 mg/dL (74-106); POTASSIUM 3.5 mmol/L (3.5-5.1); SGOT/AST 13 U/L (15-37); SGPT/ALT 11 U/L (13-61); SODIUM 136 mmol/L (136-145); TOT PROT 5.8 g/dl (6.4-8.2)
[2018-11-15] MEDS ORDERED: PT OWN MED DRAWER 7, Y5N ONE ×2 (08:46→17:32)
[2018-11-15] MEDS: TAMSULOSIN HCL 0.4 MG CAP PO SCH (09:27)
[2018-11-15] MEDS: metoPROLOL SUCCINATE 25 MG TAB.SR.24H (FP) PO SCH (09:27)
[2018-11-15] MEDS: APIXABAN 2.5 MG TABLET PO SCH ×2 (09:27→22:56)
[2018-11-15] MEDS: ALLOPURINOL 100 MG TABLET (FP) PO SCH (09:27)
[2018-11-15] MEDS: PANTOPRAZOLE SODIUM 40 MG VIAL IVPUSH SCH ×2 (09:29→22:56)
[2018-11-15] MEDS: FERROUS SO4 325 MG TABLET (FP) PO SCH ×2 (09:29→22:56)
[2018-11-15] MEDS: DEXTROSE 5%-0.45% SALINE 1,000 ML IV SCH ×2 (09:36→14:28)
[2018-11-15] MEDS ORDERED: INSULIN (NOVOLOG) ASPART 100 UNITS/ML 10ML VIAL ONE (11:41)
[2018-11-15] MEDS: MORPHINE SULFATE 2 MG/ML VIAL IVPUSH PRN (11:46)
[2018-11-15] MEDS: INSULIN SLIDING SCALE (NOVOLOG) 1 VIAL SQ SCH ×3 (11:58→22:57)
--- NOTE | 2018-11-15 12:10 | CONSULT ---
Consult Consult Specialty:: Nephrology - History of Present Illness Chief Complaint: Epigastric pain History of Present Illness: 83 yo M with a PMHx of CAD with prior PCI, h/o ischemic cardiomyopathy but normal LV function on most recent evaluations, Pafib, CHB s/p PPM, HTN, DMII, HLD, CKD, NSVT, chronic anemia and GI bleed and transfusions on prior admissions. GERD, OA, CHF, gout, CKD stage iv (with proteinuria),presenting with epigastric pain and found to have acute pancreatitis. Currently on fluids for acute pancreatitis. Had Cr-2.6 on admission trending down today to 2.1 ( about baseline). Renal US 11/14 was negative for renal pathology, CTap showed Mild chronic b/l perinephric soft tissue stranding with mild prostate enlargement. - Past Medical History Cardio/Vascular: Yes: AFIB, CAD, CHF, HTN, Hyperlipdemia, Other (CHB s/p PPM NSVT) Gastrointestinal: Yes: Constipation, GERD, GI Bleed Renal/: Yes: BPH, Other (CKD) Musculoskeletal: Yes: Osteoarthritis, Other (Gout) Endocrine: Yes: Diabetes Mellitus - Past Surgical History Past Surgical History: Yes: Cholecystectomy, Permanent Pacemaker - Alcohol/Substance Use Hx Alcohol Use: No - Smoking History Smoking history: Never smoked Have you smoked in the past 12 months: No Aproximately how many cigarettes per day: 0 If you are a former smoker, when did you quit?: "long time ago" - Social History ADL: Independent History of Recent Travel: No Home Medications - Allergies Allergies/Adverse Reactions: Allergies Allergy/AdvReac Type Severity Reaction Status Date / Time No Known Drug Allergies Allergy Verified 11/12/18 17:08 - Home Medications Home Medications: Ambulatory Orders Atorvastatin Ca [Lipitor] 20 mg PO HS 12/01/15 Ranitidine [Zantac -] 150 mg PO BID 12/01/15 Tamsulosin HCl 0.4 mg PO DAILY 12/01/15 Linaclotide [Linzess] 145 mcg PO DAILY 11/04/16 Linagliptin [Tradjenta] 5 mg PO DAILY 11/04/16 Meclizine HCl [Antivert -] 25 mg PO DAILY PRN 11/04/16 Metoprolol Succinate [Toprol Xl] 25 mg PO DAILY 02/18/17 Apixaban [Eliquis -] 2.5 mg PO BID #30 tablet 04/13/17 Allopurinol [Zyloprim -] 100 mg PO DAILY 09/01/17 Ferrous Sulfate 325 mg PO BID 09/01/17 Pregabalin [Lyrica -] 50 mg PO TID 09/01/17 Tramadol HCl 50 mg PO DAILY PRN MDD 2 04/13/18 Furosemide [Lasix -] 40 mg PO DAILY tablet 04/16/18 Review of Systems - Review of Systems Constitutional: reports: Loss of Appetite HENT: denies: Difficult Swallowing Cardiovascular: denies: Chest Pain Gastrointestinal: reports: Abdominal Pain Genitourinary: denies: Burning, Flank Pain Physical Exam Vital Signs: Vital Signs Temperature 97.8 F 11/15/18 09:30 Pulse Rate 70 11/15/18 09:30 Respiratory Rate 20 11/15/18 09:30 Blood Pressure 155/75 11/15/18 09:30 O2 Sat by Pulse Oximetry (%) 94 L 11/14/18 21:00 Neck: Yes: Supple Cardiovascular: Yes: Regular Rate and Rhythm, S1, S2 Respiratory: Yes: CTA Bilaterally Gastrointestinal: Yes: Hernia (ventral), Hypoactive Bowel Sounds, Tenderness, Epigastrium Renal/: No: CVA Tenderness - Left, CVA Tenderness - Right Labs: CBC, BMP 11/15/18 06:00 11/15/18 06:00 Imaging - Results Cat Scan: Report Reviewed Ultrasound: Report Reviewed Assessment/Plan Assessment: 83 yo M with a PMHx of CAD with prior PCI, h/o ischemic cardiomyopathy but normal LV function on most recent evaluations, Pafib, CHB s/p PPM, HTN, DMII, HLD, CKD, NSVT, chronic anemia and GI bleed and transfusions on prior admissions. GERD, OA, CHF, gout, CKD stage iv (with proteinuria),presenting with epigastric pain and found to have acute pancreatitis. CAD s/p PCI, h/o ischemic cardiomyopathy with nl LV function, CHF Pafib, CHB s/p PPM, HTN, DMII, HLD, NSVT, chronic anemia and GI bleed and transfusions on prior admissions GERD, OA, gout, CKD stage iv (with proteinuria), epigastric pain acute pancreatitis Constipation Plan: SHON on CKD, like in setting of infection with prerenal component US negative CTAP- perinephric soft tissue stranding, mild prostate enlargement Continue hydration Urine lytes Urine creatinine protein creatinine ratio Avoid nephrotoxic drugs Monitor Lytes renal diet Visit type - Emergency Visit Emergency Visit: Yes ED Registration Date: 11/13/18 Care time: The patient presented to the Emergency Department on the above date and was hospitalized for further evaluation of their emergent condition. - New Patient This patient is new to me today: Yes Date on this admission: 11/15/18 - Critical Care Critical Care patient: No
--- NOTE | 2018-11-15 14:10 | PN ---
Teaching Attending Note Name of Resident: Emelina Rojas (Nephrology) ATTENDING PHYSICIAN STATEMENT I saw and evaluated the patient. I reviewed the resident's note and discussed the case with the resident. I agree with the resident's findings and plan as documented. Renal Pt is an 83 year old male with pmhx of ckd, hld cad, dm and chf who presents with abdominal pain. he was found to have pancreatitis. I was called to evaluate him for elevated creatinine. He does have history of CKD. pmhx ckd hld cad chf gout anemia gib pshx ppm nkda family hx denies soc hx neg ros abd pain Current Medications Generic Name Dose Route Start Last Admin Trade Name Freq PRN Reason Stop Dose Admin Allopurinol 100 mg 11/13/18 10:00 11/15/18 09:27 Zyloprim - PO 100 mg DAILY [facility] Administration Apixaban 2.5 mg 11/13/18 10:00 11/15/18 09:27 Eliquis - PO 2.5 mg BID [facility] Administration Atorvastatin Calcium 20 mg 11/13/18 22:00 11/14/18 21:23 Lipitor - PO 20 mg HS [facility] Administration Ferrous Sulfate 325 mg 11/13/18 10:00 11/15/18 09:29 Feosol - PO 325 mg BID [facility] Administration Metronidazole 500 mg in 100 mls @ 100 mls/hr 11/13/18 03:00 11/15/18 10:37 Flagyl 500mg Premixed Ivpb - IVPB 100 mls/hr Q8H-IV [facility] Administration Levofloxacin 250 mg in 50 mls @ 50 mls/hr 11/14/18 10:00 11/15/18 11:48 Levaquin 250 Mg Premixed Ivpb - IVPB 50 mls/hr DAILY [facility] Administration Dextrose/Sodium Chloride 1,000 mls @ 125 mls/hr 11/14/18 08:30 11/15/18 09:36 D5-1/2ns - IV 125 mls/hr ASDIR [facility] Administration Insulin Aspart 1 vial 11/13/18 07:00 11/15/18 11:58 Novolog Vial Sliding Scale - SQ 6 unit ACHS [facility] Administration Protocol Meclizine HCl 25 mg 11/13/18 02:56 11/13/18 09:38 Antivert - PO 25 mg DAILY PRN Administration dizziness Metoclopramide HCl 10 mg 11/13/18 12:30 11/15/18 09:35 Reglan Injection - IVPB 10 mg Q8H-IV [facility] Administration Metoprolol Succinate 25 mg 11/13/18 10:00 11/15/18 09:27 Toprol Xl - PO 25 mg DAILY [facility] Administration Morphine Sulfate 2 mg 11/14/18 11:03 11/15/18 11:46 Morphine Sulfate IVPUSH 2 mg Q6H PRN Administration PAIN LEVEL 6-10 Ondansetron HCl 4 mg 11/13/18 12:26 Zofran Injection IVPB Q4H PRN NAUSEA AND/OR VOMITING Pantoprazole Sodium 40 mg 11/13/18 23:00 11/15/18 09:29 Protonix Iv IVPUSH 40 mg BID [facility] Administration Pregabalin 50 mg 11/13/18 06:00 11/15/18 05:50 Lyrica - PO 50 mg TID [facility] Administration Tamsulosin HCl 0.4 mg 11/13/18 08:30 11/15/18 09:27 Flomax - PO 0.4 mg DAILY@0830 [facility] Administration Laboratory Tests 04/15/18 04/16/18 06/02/18 06:00 06:30 17:45 WBC Hgb Sodium Potassium BUN Creatinine 2.0 H 2.3 H 2.3 H Lipase 11/12/18 11/14/18 11/15/18 17:38 07:00 06:00 WBC 11.8 H Hgb 11.5 L Sodium Potassium BUN Creatinine 2.6 H 2.2 H Lipase 1593 H 11/15/18 06:00 WBC Hgb Sodium 136 Potassium 3.5 BUN 23 H Creatinine 2.1 H Lipase Impression 1. pancreatitis 2. ckd 3. chf 4. cad 5. dm 6. hld 7. hx gi bleed Plan - cont fluids - monitor renal function - gi follow up - monitor volume status - monitor lytes - will follow Dr Rosario
--- NOTE | 2018-11-15 16:40 | PN ---
Progress Note, Physician History of Present Illness: STABLE - Current Medication List Current Medications: Active Medications Allopurinol (Zyloprim -) 100 mg PO DAILY [facility] Last Admin: 11/15/18 09:27 Dose: 100 mg Apixaban (Eliquis -) 2.5 mg PO BID [facility] Last Admin: 11/15/18 09:27 Dose: 2.5 mg Atorvastatin Calcium (Lipitor -) 20 mg PO HS [facility] Last Admin: 11/14/18 21:23 Dose: 20 mg Ferrous Sulfate (Feosol -) 325 mg PO BID [facility] Last Admin: 11/15/18 09:29 Dose: 325 mg Metronidazole (Flagyl 500mg Premixed Ivpb -) 500 mg in 100 mls @ 100 mls/hr IVPB Q8H-IV [facility] Last Admin: 11/15/18 10:37 Dose: 100 mls/hr Levofloxacin (Levaquin 250 Mg Premixed Ivpb -) 250 mg in 50 mls @ 50 mls/hr IVPB DAILY [facility] Last Admin: 11/15/18 11:48 Dose: 50 mls/hr Dextrose/Sodium Chloride (D5-1/2ns -) 1,000 mls @ 75 mls/hr IV ASDIR [facility] Last Admin: 11/15/18 14:28 Dose: 75 mls/hr Insulin Aspart (Novolog Vial Sliding Scale -) 1 vial SQ ACHS [facility]; Protocol Last Admin: 11/15/18 11:58 Dose: 6 unit Meclizine HCl (Antivert -) 25 mg PO DAILY PRN PRN Reason: dizziness Last Admin: 11/13/18 09:38 Dose: 25 mg Metoclopramide HCl (Reglan Injection -) 10 mg IVPB Q8H-IV [facility] Last Admin: 11/15/18 09:35 Dose: 10 mg Metoprolol Succinate (Toprol Xl -) 25 mg PO DAILY [facility] Last Admin: 11/15/18 09:27 Dose: 25 mg Morphine Sulfate (Morphine Sulfate) 2 mg IVPUSH Q6H PRN PRN Reason: PAIN LEVEL 6-10 Ondansetron HCl (Zofran Injection) 4 mg IVPB Q4H PRN PRN Reason: NAUSEA AND/OR VOMITING Pantoprazole Sodium (Protonix Iv) 40 mg IVPUSH BID [facility] Last Admin: 11/15/18 09:29 Dose: 40 mg Pregabalin (Lyrica -) 50 mg PO TID [facility] Last Admin: 11/15/18 14:25 Dose: Not Given Tamsulosin HCl (Flomax -) 0.4 mg PO DAILY@0830 [facility] Last Admin: 11/15/18 09:27 Dose: 0.4 mg - Objective Vital Signs: Vital Signs Temperature 97.7 F 11/15/18 14:28 Pulse Rate 70 11/15/18 14:28 Respiratory Rate 20 11/15/18 14:28 Blood Pressure 124/69 11/15/18 14:28 O2 Sat by Pulse Oximetry (%) 95 11/15/18 09:00 Constitutional: Yes: No Distress HENT: Yes: Atraumatic Neck: Yes: Supple Cardiovascular: Yes: Regular Rate and Rhythm Respiratory: Yes: CTA Bilaterally Gastrointestinal: Yes: Normal Bowel Sounds Extremities: Yes: WNL Edema: No Peripheral Pulses WNL: Yes Neurological: Yes: Alert, Oriented Labs: CBC, BMP 11/15/18 06:00 11/15/18 06:00 Problem List - Problems (1) Acute pancreatitis Assessment/Plan: on liquid diet ivf iv protonix prn pain meds Code(s): K85.90 - ACUTE PANCREATITIS WITHOUT NECROSIS OR INFECTION, UNSP Qualifiers: Pancreatitis type: other Acute pancreatitis complication: unspecified Qualified Code(s): K85.80 - Other acute pancreatitis without necrosis or infection (2) Chronic kidney disease Assessment/Plan: renal on board Code(s): N18.9 - CHRONIC KIDNEY DISEASE, UNSPECIFIED Qualifiers: Chronic kidney disease stage: unspecified stage Qualified Code(s): N18.9 - Chronic kidney disease, unspecified (3) Diabetes mellitus type II, controlled Assessment/Plan: insulin /bgms Code(s): E11.9 - TYPE 2 DIABETES MELLITUS WITHOUT COMPLICATIONS Qualifiers: Diabetes mellitus correction insulin use: without intermodal dispatcher use Diabetes mellitus complication status: with hyperglycemia Qualified Code(s): E11.65 - Type 2 diabetes mellitus with hyperglycemia (4) HLD (hyperlipidemia) Assessment/Plan: on meds Code(s): E78.5 - HYPERLIPIDEMIA, UNSPECIFIED Qualifiers: Hyperlipidemia type: mixed hyperlipidemia Qualified Code(s): E78.2 - Mixed hyperlipidemia (5) Hypertension Assessment/Plan: on meds Code(s): I10 - ESSENTIAL (PRIMARY) HYPERTENSION Qualifiers: Hypertension type: essential hypertension Qualified Code(s): I10 - Essential (primary) hypertension Assessment/Plan COVERING FOR DR SANCHES TODAY
[2018-11-15 18:13] LABS: AMYLASE 96 U/L (25-115)
[2018-11-15 18:14] LABS: LIPASE 1752 U/L (73-393)
[2018-11-15] MEDS: Methylnaltrexone Bromide 12 MG/0.6 ML KIT SQ SCH (18:37)
[2018-11-15] MEDS ORDERED: POLYETHYLENE GLYCOL 3350 119 GM BTL PO SCH (22:00)
[2018-11-15] MEDS: ATORVASTATIN CA 20 MG TABLET (FP) PO SCH (22:56)
[2018-11-15 22:58] LABS: URINE APPEARANCE CLEAR; URINE BILIRUBIN NEGATIVE (<2.0 mg/dL); URINE COLOR LTYELLOW; URINE GLUCOSE (UA) NEGATIVE (NEGATIVE); URINE KETONE NEGATIVE (NEGATIVE); URINE LEUK ESTERASE 1+ (NEGATIVE); URINE NITRITE NEGATIVE (NEGATIVE); URINE PROTEIN 2+ (NEGATIVE); URINE UROBILINOGEN NEGATIVE mg/dL (0.2-1.0)
[2018-11-15 23:12] LABS: EPI CELLS RARE /HPF (FEW)
[2018-11-15 23:19] LABS: RATIO URIN PROTEIN/URIN CREAT 2.63 MG/DL
[2018-11-16] MEDS: DEXTROSE 5%-0.45% SALINE 1,000 ML IV SCH ×2 (02:25→18:25)
[2018-11-16] MEDS: METOCLOPRAMIDE HCL INJECTION 10 MG/2 ML VIAL IVPB SCH ×4 (02:26→18:34)
[2018-11-16] MEDS: PREGABALIN 50 MG CAPSULE PO SCH ×3 (06:47→21:49)
[2018-11-16] MEDS: INSULIN SLIDING SCALE (NOVOLOG) 1 VIAL SQ SCH ×5 (06:48→21:48)
[2018-11-16 07:38] LABS: BASO % 0.2 % (0-2.0); EOS % 1.2 % (0-4.5); HEMATOCRIT 33.7 % (35.4-49); HEMOGLOBIN 11.3 GM/dL (11.7-16.9); LYMPH % 11.7 % (8-40); MCH 33.3 pg (25.7-33.7); MCHC 33.5 g/dl (32.0-35.9); MEAN CELL VOLUME 99.4 fl (80-96); MEAN PLT VOLUME 8.2 fl (7.5-11.1); MONO % 8.3 % (3.8-10.2); NEUT % 78.6 % (42.8-82.8); PLATELET COUNT 233 K/MM3 (134-434); RBC 3.39 M/mm3 (4.00-5.60); RDW 13.6 % (11.9-15.9); WHITE BLOOD COUNT 12.4 K/mm3 (4.0-10.0)
[2018-11-16 07:58] LABS: ALBUMIN 2.4 g/dl (3.4-5.0); ALK PHOS 65 U/L (45-117); ANION GAP 7 MMOL/L (8-16); BILIRUBIN,TOTAL 0.7 mg/dL (0.2-1); BLOOD UREA NITROGEN 19 mg/dL (7-18); CALCIUM 8.2 mg/dL (8.5-10.1); CHLORIDE 102 mmol/L (98-107); CO2 29 mmol/L (21-32); GLUCOSE,RANDOM 173 mg/dL (74-106); MAGNESIUM 1.8 mg/dL (1.8-2.4); PHOSPHOROUS 2.5 mg/dL (2.5-4.9); POTASSIUM 3.9 mmol/L (3.5-5.1); SGOT/AST 14 U/L (15-37); SGPT/ALT 11 U/L (13-61); SODIUM 138 mmol/L (136-145); TOT PROT 5.9 g/dl (6.4-8.2)
[2018-11-16] MEDS ORDERED: PT OWN MED DRAWER 7, Y5N ONE (10:57)
[2018-11-16] MEDS: PANTOPRAZOLE SODIUM 40 MG VIAL IVPUSH SCH ×2 (11:23→21:50)
[2018-11-16] MEDS: FERROUS SO4 325 MG TABLET (FP) PO SCH ×2 (11:23→21:52)
[2018-11-16] MEDS: APIXABAN 2.5 MG TABLET PO SCH ×2 (11:23→21:49)
[2018-11-16] MEDS: ALLOPURINOL 100 MG TABLET (FP) PO SCH (11:23)
[2018-11-16] MEDS: metoPROLOL SUCCINATE 25 MG TAB.SR.24H (FP) PO SCH (11:23)
[2018-11-16] MEDS: TAMSULOSIN HCL 0.4 MG CAP PO SCH (11:23)
[2018-11-16] MEDS ORDERED: INSULIN (NOVOLOG) ASPART 100 UNITS/ML 10ML VIAL ONE ×2 (11:38→21:40)
[2018-11-16] MEDS: Methylnaltrexone Bromide 12 MG/0.6 ML KIT SQ SCH (11:40)
--- NOTE | 2018-11-16 14:03 | PN ---
Progress Note, Physician History of Present Illness: Pt seen and examined at bedside. He is awake and alert. He still has abdominal pain but feels that it is a little better than yesterday. - Current Medication List Current Medications: Active Medications Allopurinol (Zyloprim -) 100 mg PO DAILY [facility] Last Admin: 11/16/18 11:23 Dose: 100 mg Apixaban (Eliquis -) 2.5 mg PO BID [facility] Last Admin: 11/16/18 11:23 Dose: 2.5 mg Atorvastatin Calcium (Lipitor -) 20 mg PO HS [facility] Last Admin: 11/15/18 22:56 Dose: 20 mg Ferrous Sulfate (Feosol -) 325 mg PO BID [facility] Last Admin: 11/16/18 11:23 Dose: Not Given Metronidazole (Flagyl 500mg Premixed Ivpb -) 500 mg in 100 mls @ 100 mls/hr IVPB Q8H-IV [facility] Last Admin: 11/16/18 11:24 Dose: 100 mls/hr Levofloxacin (Levaquin 250 Mg Premixed Ivpb -) 250 mg in 50 mls @ 50 mls/hr IVPB DAILY [facility] Last Admin: 11/16/18 11:24 Dose: 50 mls/hr Dextrose/Sodium Chloride (D5-1/2ns -) 1,000 mls @ 75 mls/hr IV ASDIR [facility] Last Admin: 11/16/18 02:25 Dose: 75 mls/hr Insulin Aspart (Novolog Vial Sliding Scale -) 1 vial SQ ACHS [facility]; Protocol Last Admin: 11/16/18 11:39 Dose: 2 unit Meclizine HCl (Antivert -) 25 mg PO DAILY PRN PRN Reason: dizziness Last Admin: 11/13/18 09:38 Dose: 25 mg Methylnaltrexone [place] (Relistor -) 12 mg SQ DAILY [facility] Last Admin: 11/16/18 11:40 Dose: 12 mg Metoclopramide HCl (Reglan Injection -) 10 mg IVPB Q8H-IV [facility] Last Admin: 11/16/18 11:24 Dose: 10 mg Metoprolol Succinate (Toprol Xl -) 25 mg PO DAILY [facility] Last Admin: 11/16/18 11:23 Dose: 25 mg Morphine Sulfate (Morphine Sulfate) 2 mg IVPUSH Q6H PRN PRN Reason: PAIN LEVEL 6-10 Ondansetron HCl (Zofran Injection) 4 mg IVPB Q4H PRN PRN Reason: NAUSEA AND/OR VOMITING Pantoprazole Sodium (Protonix Iv) 40 mg IVPUSH BID [facility] Last Admin: 11/16/18 11:23 Dose: 40 mg Pregabalin (Lyrica -) 50 mg PO TID [facility] Last Admin: 11/16/18 06:47 Dose: 50 mg Tamsulosin HCl (Flomax -) 0.4 mg PO DAILY@0830 [facility] Last Admin: 11/16/18 11:23 Dose: 0.4 mg - Objective Vital Signs: Vital Signs Temperature 98.2 F 11/16/18 06:00 Pulse Rate 71 11/16/18 06:00 Respiratory Rate 20 11/16/18 06:00 Blood Pressure 147/80 11/16/18 06:00 O2 Sat by Pulse Oximetry (%) 95 11/15/18 21:00 Constitutional: Yes: Calm Eyes: Yes: Conjunctiva Clear HENT: Yes: Atraumatic Cardiovascular: Yes: S1, S2 Respiratory: Yes: CTA Bilaterally Gastrointestinal: Yes: Tenderness Musculoskeletal: Yes: WNL Edema: Yes Edema: LLE: Trace, RLE: Trace Neurological: Yes: Oriented Psychiatric: Yes: Oriented Labs: CBC, BMP 11/16/18 06:35 11/16/18 06:35 Problem List - Problems (1) Abdominal pain Code(s): R10.9 - UNSPECIFIED ABDOMINAL PAIN Qualifiers: Abdominal location: epigastric Qualified Code(s): R10.13 - Epigastric pain (2) Acute pancreatitis Code(s): K85.90 - ACUTE PANCREATITIS WITHOUT NECROSIS OR INFECTION, UNSP Qualifiers: Pancreatitis type: other Acute pancreatitis complication: unspecified Qualified Code(s): K85.80 - Other acute pancreatitis without necrosis or infection (3) Chronic kidney disease Code(s): N18.9 - CHRONIC KIDNEY DISEASE, UNSPECIFIED Qualifiers: Chronic kidney disease stage: unspecified stage Qualified Code(s): N18.9 - Chronic kidney disease, unspecified Assessment/Plan Current Medications Generic Name Dose Route Start Last Admin Trade Name Freq PRN Reason Stop Dose Admin Allopurinol 100 mg 11/13/18 10:00 11/16/18 11:23 Zyloprim - PO 100 mg DAILY [facility] Administration Apixaban 2.5 mg 11/13/18 10:00 11/16/18 11:23 Eliquis - PO 2.5 mg BID [facility] Administration Atorvastatin Calcium 20 mg 11/13/18 22:00 11/15/18 22:56 Lipitor - PO 20 mg HS [facility] Administration Ferrous Sulfate 325 mg 11/13/18 10:00 11/16/18 11:23 Feosol - PO Not Given BID [facility] Metronidazole 500 mg in 100 mls @ 100 mls/hr 11/13/18 03:00 11/16/18 11:24 Flagyl 500mg Premixed Ivpb - IVPB 100 mls/hr Q8H-IV [facility] Administration Levofloxacin 250 mg in 50 mls @ 50 mls/hr 11/14/18 10:00 11/16/18 11:24 Levaquin 250 Mg Premixed Ivpb - IVPB 50 mls/hr DAILY [facility] Administration Dextrose/Sodium Chloride 1,000 mls @ 75 mls/hr 11/15/18 14:30 11/16/18 02:25 D5-1/2ns - IV 75 mls/hr ASDIR [facility] Administration Insulin Aspart 1 vial 11/13/18 07:00 11/16/18 11:39 Novolog Vial Sliding Scale - SQ 2 unit ACHS [facility] Administration Protocol Meclizine HCl 25 mg 11/13/18 02:56 11/13/18 09:38 Antivert - PO 25 mg DAILY PRN Administration dizziness Methylnaltrexone [place] 12 mg 11/15/18 17:45 11/16/18 11:40 Relistor - SQ 12 mg DAILY [facility] Administration Metoclopramide HCl 10 mg 11/13/18 12:30 11/16/18 11:24 Reglan Injection - IVPB 10 mg Q8H-IV [facility] Administration Metoprolol Succinate 25 mg 11/13/18 10:00 11/16/18 11:23 Toprol Xl - PO 25 mg DAILY [facility] Administration Morphine Sulfate 2 mg 11/15/18 14:23 Morphine Sulfate IVPUSH Q6H PRN PAIN LEVEL 6-10 Ondansetron HCl 4 mg 11/13/18 12:26 Zofran Injection IVPB Q4H PRN NAUSEA AND/OR VOMITING Pantoprazole Sodium 40 mg 11/13/18 23:00 11/16/18 11:23 Protonix Iv IVPUSH 40 mg BID [facility] Administration Pregabalin 50 mg 11/13/18 06:00 11/16/18 06:47 Lyrica - PO 50 mg TID [facility] Administration Tamsulosin HCl 0.4 mg 11/13/18 08:30 11/16/18 11:23 Flomax - PO 0.4 mg DAILY@0830 [facility] Administration Impression 1. pancreatitis 2. ckd 3. chf 4. cad 5. dm 6. hld 7. hx gi bleed Plan - cont with hydration - repeat labs in am - GI follow up - monitor volume status closely - monitor lytes - will follow Dr Rosario
--- NOTE | 2018-11-16 15:36 | PN ---
Progress Note, Physician - Current Medication List Current Medications: Active Medications Allopurinol (Zyloprim -) 100 mg PO DAILY [facility] Last Admin: 11/16/18 11:23 Dose: 100 mg Apixaban (Eliquis -) 2.5 mg PO BID [facility] Last Admin: 11/16/18 11:23 Dose: 2.5 mg Atorvastatin Calcium (Lipitor -) 20 mg PO HS [facility] Last Admin: 11/15/18 22:56 Dose: 20 mg Ferrous Sulfate (Feosol -) 325 mg PO BID [facility] Last Admin: 11/16/18 11:23 Dose: Not Given Metronidazole (Flagyl 500mg Premixed Ivpb -) 500 mg in 100 mls @ 100 mls/hr IVPB Q8H-IV [facility] Last Admin: 11/16/18 11:24 Dose: 100 mls/hr Levofloxacin (Levaquin 250 Mg Premixed Ivpb -) 250 mg in 50 mls @ 50 mls/hr IVPB DAILY [facility] Last Admin: 11/16/18 11:24 Dose: 50 mls/hr Dextrose/Sodium Chloride (D5-1/2ns -) 1,000 mls @ 75 mls/hr IV ASDIR [facility] Last Admin: 11/16/18 02:25 Dose: 75 mls/hr Insulin Aspart (Novolog Vial Sliding Scale -) 1 vial SQ ACHS [facility]; Protocol Last Admin: 11/16/18 11:39 Dose: 2 unit Meclizine HCl (Antivert -) 25 mg PO DAILY PRN PRN Reason: dizziness Last Admin: 11/13/18 09:38 Dose: 25 mg Methylnaltrexone [place] (Relistor -) 12 mg SQ DAILY [facility] Last Admin: 11/16/18 11:40 Dose: 12 mg Metoclopramide HCl (Reglan Injection -) 10 mg IVPB Q8H-IV [facility] Last Admin: 11/16/18 11:24 Dose: 10 mg Metoprolol Succinate (Toprol Xl -) 25 mg PO DAILY [facility] Last Admin: 11/16/18 11:23 Dose: 25 mg Morphine Sulfate (Morphine Sulfate) 2 mg IVPUSH Q6H PRN PRN Reason: PAIN LEVEL 6-10 Ondansetron HCl (Zofran Injection) 4 mg IVPB Q4H PRN PRN Reason: NAUSEA AND/OR VOMITING Pantoprazole Sodium (Protonix Iv) 40 mg IVPUSH BID [facility] Last Admin: 11/16/18 11:23 Dose: 40 mg Pregabalin (Lyrica -) 50 mg PO TID [facility] Last Admin: 11/16/18 06:47 Dose: 50 mg Tamsulosin HCl (Flomax -) 0.4 mg PO DAILY@0830 [facility] Last Admin: 11/16/18 11:23 Dose: 0.4 mg - Objective Vital Signs: Vital Signs Temperature 98.1 F 11/16/18 15:22 Pulse Rate 70 11/16/18 15:22 Respiratory Rate 18 11/16/18 15:22 Blood Pressure 149/79 11/16/18 15:22 O2 Sat by Pulse Oximetry (%) 95 11/15/18 21:00 Labs: CBC, BMP 11/16/18 06:35 11/16/18 06:35
[2018-11-16] MEDS: ATORVASTATIN CA 20 MG TABLET (FP) PO SCH (21:49)
[2018-11-16] MEDS: DOCUSATE SODIUM 100 MG CAPSULE (FP) PO SCH (23:11)
[2018-11-17] MEDS: METOCLOPRAMIDE HCL INJECTION 10 MG/2 ML VIAL IVPB SCH ×3 (01:49→17:50)
[2018-11-17] MEDS: DEXTROSE 5%-0.45% SALINE 1,000 ML IV SCH ×3 (01:49→20:40)
[2018-11-17] MEDS: INSULIN SLIDING SCALE (NOVOLOG) 1 VIAL SQ SCH ×4 (06:17→21:29)
[2018-11-17] MEDS: PREGABALIN 50 MG CAPSULE PO SCH ×3 (06:17→21:30)
[2018-11-17] MEDS: DOCUSATE SODIUM 100 MG CAPSULE (FP) PO SCH ×3 (06:17→21:30)
[2018-11-17 06:28] LABS: BASO % 0.2 % (0-2.0); EOS % 1.3 % (0-4.5); HEMATOCRIT 34.7 % (35.4-49); HEMOGLOBIN 11.5 GM/dL (11.7-16.9); LYMPH % 12.7 % (8-40); MCHC 33.1 g/dl (32.0-35.9); MEAN CELL VOLUME 99.5 fl (80-96); MEAN PLT VOLUME 8.1 fl (7.5-11.1); MONO % 8.8 % (3.8-10.2); PLATELET COUNT 236 K/MM3 (134-434); RBC 3.48 M/mm3 (4.00-5.60); RDW 13.8 % (11.9-15.9); WHITE BLOOD COUNT 11.8 K/mm3 (4.0-10.0)
[2018-11-17] MEDS: MORPHINE SULFATE 2 MG/ML VIAL IVPUSH PRN ×2 (06:45→17:53)
[2018-11-17 07:07] LABS: ALBUMIN 2.4 g/dl (3.4-5.0); ALK PHOS 65 U/L (45-117); AMYLASE 90 U/L (25-115); ANION GAP 7 MMOL/L (8-16); BILIRUBIN,TOTAL 0.3 mg/dL (0.2-1); BLOOD UREA NITROGEN 20 mg/dL (7-18); CALCIUM 8.4 mg/dL (8.5-10.1); CHLORIDE 104 mmol/L (98-107); CO2 30 mmol/L (21-32); CREATININE 1.9 mg/dL (0.55-1.3); GLUCOSE,RANDOM 196 mg/dL (74-106); POTASSIUM 3.9 mmol/L (3.5-5.1); SGOT/AST 18 U/L (15-37); SGPT/ALT 12 U/L (13-61); SODIUM 140 mmol/L (136-145); TOT PROT 5.9 g/dl (6.4-8.2)
[2018-11-17] MEDS ORDERED: PT OWN MED DRAWER 7, Y5N ONE (09:47)
[2018-11-17] MEDS: PANTOPRAZOLE SODIUM 40 MG VIAL IVPUSH SCH ×2 (10:45→21:30)
[2018-11-17] MEDS: ALLOPURINOL 100 MG TABLET (FP) PO SCH (10:46)
[2018-11-17] MEDS: APIXABAN 2.5 MG TABLET PO SCH ×2 (10:46→21:30)
[2018-11-17] MEDS: FERROUS SO4 325 MG TABLET (FP) PO SCH ×2 (10:46→21:30)
[2018-11-17] MEDS: TAMSULOSIN HCL 0.4 MG CAP PO SCH (10:46)
[2018-11-17] MEDS: Methylnaltrexone Bromide 12 MG/0.6 ML KIT SQ SCH (10:46)
[2018-11-17] MEDS: metoPROLOL SUCCINATE 25 MG TAB.SR.24H (FP) PO SCH (10:46)
--- NOTE | 2018-11-17 16:31 | PN ---
Progress Note, Physician - Current Medication List Current Medications: Active Medications Allopurinol (Zyloprim -) 100 mg PO DAILY [facility] Last Admin: 11/17/18 10:46 Dose: 100 mg Apixaban (Eliquis -) 2.5 mg PO BID [facility] Last Admin: 11/17/18 10:46 Dose: 2.5 mg Atorvastatin Calcium (Lipitor -) 20 mg PO HS [facility] Last Admin: 11/16/18 21:49 Dose: 20 mg Docusate Sodium (Colace -) 100 mg PO TID [facility] Last Admin: 11/17/18 06:17 Dose: 100 mg Ferrous Sulfate (Feosol -) 325 mg PO BID [facility] Last Admin: 11/17/18 10:46 Dose: 325 mg Metronidazole (Flagyl 500mg Premixed Ivpb -) 500 mg in 100 mls @ 100 mls/hr IVPB Q8H-IV [facility] Last Admin: 11/17/18 10:46 Dose: 100 mls/hr Levofloxacin (Levaquin 250 Mg Premixed Ivpb -) 250 mg in 50 mls @ 50 mls/hr IVPB DAILY [facility] Last Admin: 11/17/18 10:46 Dose: 50 mls/hr Dextrose/Sodium Chloride (D5-1/2ns -) 1,000 mls @ 75 mls/hr IV ASDIR [facility] Last Admin: 11/17/18 01:49 Dose: 75 mls/hr Insulin Aspart (Novolog Vial Sliding Scale -) 1 vial SQ ACHS [facility]; Protocol Last Admin: 11/17/18 12:23 Dose: 6 unit Meclizine HCl (Antivert -) 25 mg PO DAILY PRN PRN Reason: dizziness Last Admin: 11/13/18 09:38 Dose: 25 mg Methylnaltrexone [place] (Relistor -) 12 mg SQ DAILY [facility] Last Admin: 11/17/18 10:46 Dose: 12 mg Metoclopramide HCl (Reglan Injection -) 10 mg IVPB Q8H-IV [facility] Last Admin: 11/17/18 10:45 Dose: 10 mg Metoprolol Succinate (Toprol Xl -) 25 mg PO DAILY [facility] Last Admin: 11/17/18 10:46 Dose: 25 mg Morphine Sulfate (Morphine Sulfate) 2 mg IVPUSH Q6H PRN PRN Reason: PAIN LEVEL 6-10 Last Admin: 11/17/18 06:45 Dose: 2 mg Ondansetron HCl (Zofran Injection) 4 mg IVPB Q4H PRN PRN Reason: NAUSEA AND/OR VOMITING Pantoprazole Sodium (Protonix Iv) 40 mg IVPUSH BID [facility] Last Admin: 11/17/18 10:45 Dose: 40 mg Pregabalin (Lyrica -) 50 mg PO TID [facility] Last Admin: 11/17/18 06:17 Dose: 50 mg Tamsulosin HCl (Flomax -) 0.4 mg PO DAILY@0830 [facility] Last Admin: 11/17/18 10:46 Dose: 0.4 mg - Objective Vital Signs: Vital Signs Temperature 97.8 F 11/16/18 18:00 Pulse Rate 70 11/16/18 22:00 Respiratory Rate 20 11/16/18 22:00 Blood Pressure 152/83 11/16/18 22:00 O2 Sat by Pulse Oximetry (%) 95 11/16/18 21:00 Labs: CBC, BMP 11/17/18 05:50 11/17/18 05:50
--- NOTE | 2018-11-17 18:17 | PN ---
Progress Note, Physician History of Present Illness: Pt seen and examined at bedside. He feels that the abd pain has resolved. - Current Medication List Current Medications: Active Medications Allopurinol (Zyloprim -) 100 mg PO DAILY [facility] Last Admin: 11/17/18 10:46 Dose: 100 mg Apixaban (Eliquis -) 2.5 mg PO BID [facility] Last Admin: 11/17/18 10:46 Dose: 2.5 mg Atorvastatin Calcium (Lipitor -) 20 mg PO HS [facility] Last Admin: 11/16/18 21:49 Dose: 20 mg Docusate Sodium (Colace -) 100 mg PO TID [facility] Last Admin: 11/17/18 14:50 Dose: 100 mg Ferrous Sulfate (Feosol -) 325 mg PO BID [facility] Last Admin: 11/17/18 10:46 Dose: 325 mg Metronidazole (Flagyl 500mg Premixed Ivpb -) 500 mg in 100 mls @ 100 mls/hr IVPB Q8H-IV [facility] Last Admin: 11/17/18 17:50 Dose: 100 mls/hr Levofloxacin (Levaquin 250 Mg Premixed Ivpb -) 250 mg in 50 mls @ 50 mls/hr IVPB DAILY [facility] Last Admin: 11/17/18 10:46 Dose: 50 mls/hr Dextrose/Sodium Chloride (D5-1/2ns -) 1,000 mls @ 75 mls/hr IV ASDIR [facility] Last Admin: 11/17/18 17:52 Dose: Not Given Insulin Aspart (Novolog Vial Sliding Scale -) 1 vial SQ ACHS [facility]; Protocol Last Admin: 11/17/18 17:50 Dose: 2 unit Meclizine HCl (Antivert -) 25 mg PO DAILY PRN PRN Reason: dizziness Last Admin: 11/13/18 09:38 Dose: 25 mg Methylnaltrexone [place] (Relistor -) 12 mg SQ DAILY [facility] Last Admin: 11/17/18 10:46 Dose: 12 mg Metoclopramide HCl (Reglan Injection -) 10 mg IVPB Q8H-IV [facility] Last Admin: 11/17/18 17:50 Dose: 10 mg Metoprolol Succinate (Toprol Xl -) 25 mg PO DAILY [facility] Last Admin: 11/17/18 10:46 Dose: 25 mg Morphine Sulfate (Morphine Sulfate) 2 mg IVPUSH Q6H PRN PRN Reason: PAIN LEVEL 6-10 Last Admin: 11/17/18 17:53 Dose: 2 mg Ondansetron HCl (Zofran Injection) 4 mg IVPB Q4H PRN PRN Reason: NAUSEA AND/OR VOMITING Pantoprazole Sodium (Protonix Iv) 40 mg IVPUSH BID [facility] Last Admin: 11/17/18 10:45 Dose: 40 mg Pregabalin (Lyrica -) 50 mg PO TID [facility] Last Admin: 11/17/18 17:52 Dose: 50 mg Tamsulosin HCl (Flomax -) 0.4 mg PO DAILY@0830 [facility] Last Admin: 11/17/18 10:46 Dose: 0.4 mg - Objective Vital Signs: Vital Signs Temperature 97.8 F 11/16/18 18:00 Pulse Rate 70 11/16/18 22:00 Respiratory Rate 11/16/18 22:00 Blood Pressure 152/83 11/16/18 22:00 O2 Sat by Pulse Oximetry (%) 95 11/16/18 21:00 Constitutional: Yes: Calm Eyes: Yes: Conjunctiva Clear HENT: Yes: Atraumatic Neck: Yes: Supple Cardiovascular: Yes: S1, S2 Respiratory: Yes: CTA Bilaterally Gastrointestinal: Yes: Normal Bowel Sounds, Soft Genitourinary: Yes: WNL Extremities: Yes: WNL Edema: Yes Edema: LLE: 1+, RLE: 1+ Neurological: Yes: Oriented Psychiatric: Yes: Oriented Labs: CBC, BMP 11/17/18 05:50 11/17/18 05:50 Problem List - Problems (1) Abdominal pain Code(s): R10.9 - UNSPECIFIED ABDOMINAL PAIN Qualifiers: Abdominal location: epigastric Qualified Code(s): R10.13 - Epigastric pain (2) Acute pancreatitis Code(s): K85.90 - ACUTE PANCREATITIS WITHOUT NECROSIS OR INFECTION, UNSP Qualifiers: Pancreatitis type: other Acute pancreatitis complication: unspecified Qualified Code(s): K85.80 - Other acute pancreatitis without necrosis or infection (3) Chronic kidney disease Code(s): N18.9 - CHRONIC KIDNEY DISEASE, UNSPECIFIED Qualifiers: Chronic kidney disease stage: unspecified stage Qualified Code(s): N18.9 - Chronic kidney disease, unspecified Assessment/Plan Current Medications Generic Name Dose Route Start Last Admin Trade Name Freq PRN Reason Stop Dose Admin Allopurinol 100 mg 11/13/18 10:00 11/17/18 10:46 Zyloprim - PO 100 mg DAILY [facility] Administration Apixaban 2.5 mg 11/13/18 10:00 11/17/18 10:46 Eliquis - PO 2.5 mg BID [facility] Administration Atorvastatin Calcium 20 mg 11/13/18 22:00 11/16/18 21:49 Lipitor - PO 20 mg HS [facility] Administration Docusate Sodium 100 mg 11/16/18 22:15 11/17/18 14:50 Colace - PO 100 mg TID [facility] Administration Ferrous Sulfate 325 mg 11/13/18 10:00 11/17/18 10:46 Feosol - PO 325 mg BID [facility] Administration Metronidazole 500 mg in 100 mls @ 100 mls/hr 11/13/18 03:00 11/17/18 17:50 Flagyl 500mg Premixed Ivpb - IVPB 100 mls/hr Q8H-IV [facility] Administration Levofloxacin 250 mg in 50 mls @ 50 mls/hr 11/14/18 10:00 11/17/18 10:46 Levaquin 250 Mg Premixed Ivpb - IVPB 50 mls/hr DAILY [facility] Administration Dextrose/Sodium Chloride 1,000 mls @ 75 mls/hr 11/15/18 14:30 11/17/18 17:52 D5-1/2ns - IV Not Given ASDIR [facility] Insulin Aspart 1 vial 11/13/18 07:00 11/17/18 17:50 Novolog Vial Sliding Scale - SQ 2 unit ACHS [facility] Administration Protocol Meclizine HCl 25 mg 11/13/18 02:56 11/13/18 09:38 Antivert - PO 25 mg DAILY PRN Administration dizziness Methylnaltrexone [place] 12 mg 11/15/18 17:45 11/17/18 10:46 Relistor - SQ 12 mg DAILY [facility] Administration Metoclopramide HCl 10 mg 11/13/18 12:30 11/17/18 17:50 Reglan Injection - IVPB 10 mg Q8H-IV [facility] Administration Metoprolol Succinate 25 mg 11/13/18 10:00 11/17/18 10:46 Toprol Xl - PO 25 mg DAILY [facility] Administration Morphine Sulfate 2 mg 11/15/18 14:23 11/17/18 17:53 Morphine Sulfate IVPUSH 2 mg Q6H PRN Administration PAIN LEVEL 6-10 Ondansetron HCl 4 mg 11/13/18 12:26 Zofran Injection IVPB Q4H PRN NAUSEA AND/OR VOMITING Pantoprazole Sodium 40 mg 11/13/18 23:00 11/17/18 10:45 Protonix Iv IVPUSH 40 mg BID [facility] Administration Pregabalin 50 mg 11/13/18 06:00 11/17/18 17:52 Lyrica - PO 50 mg TID [facility] Administration Tamsulosin HCl 0.4 mg 11/13/18 08:30 11/17/18 10:46 Flomax - PO 0.4 mg DAILY@0830 [facility] Administration Impression 1. pancreatitis 2. ckd 3. chf 4. cad 5. dm 6. hld 7. hx gi bleed Plan - fluids decreased - monitor renal function - pt is tolerating diet - GI follow up - monitor volume status closely - will follow Dr Rosario
[2018-11-17] MEDS: ATORVASTATIN CA 20 MG TABLET (FP) PO SCH (21:30)
[2018-11-18] MEDS: METOCLOPRAMIDE HCL INJECTION 10 MG/2 ML VIAL IVPB SCH ×3 (01:33→17:09)
[2018-11-18] MEDS: DOCUSATE SODIUM 100 MG CAPSULE (FP) PO SCH ×3 (05:54→22:36)
[2018-11-18] MEDS: PREGABALIN 50 MG CAPSULE PO SCH ×3 (05:54→22:36)
[2018-11-18] MEDS: INSULIN SLIDING SCALE (NOVOLOG) 1 VIAL SQ SCH ×4 (06:01→22:36)
[2018-11-18] MEDS ORDERED: INSULIN (NOVOLOG) ASPART 100 UNITS/ML 10ML VIAL ONE (06:51)
[2018-11-18] MEDS: TAMSULOSIN HCL 0.4 MG CAP PO SCH (09:28)
[2018-11-18] MEDS: ALLOPURINOL 100 MG TABLET (FP) PO SCH (09:28)
[2018-11-18] MEDS: PANTOPRAZOLE SODIUM 40 MG VIAL IVPUSH SCH (09:28)
[2018-11-18] MEDS: FERROUS SO4 325 MG TABLET (FP) PO SCH ×3 (09:28→22:36)
[2018-11-18] MEDS: metoPROLOL SUCCINATE 25 MG TAB.SR.24H (FP) PO SCH (09:28)
[2018-11-18] MEDS: APIXABAN 2.5 MG TABLET PO SCH ×2 (09:28→22:36)
[2018-11-18] MEDS: Methylnaltrexone Bromide 12 MG/0.6 ML KIT SQ SCH (09:35)
[2018-11-18] MEDS: DEXTROSE 5%-0.45% SALINE 1,000 ML IV SCH (09:42)
[2018-11-18] MEDS ORDERED: BISACODYL 10 MG SUPP.RECT RC ONE ×2 (13:30→14:00)
--- NOTE | 2018-11-18 15:34 | PN ---
Progress Note, Physician History of Present Illness: Pt seen and examined at bedside. He is tolerating diet. He denies shortness of breath. - Current Medication List Current Medications: Active Medications Allopurinol (Zyloprim -) 100 mg PO DAILY [facility] Last Admin: 11/18/18 09:28 Dose: 100 mg Apixaban (Eliquis -) 2.5 mg PO BID [facility] Last Admin: 11/18/18 09:28 Dose: 2.5 mg Atorvastatin Calcium (Lipitor -) 20 mg PO HS [facility] Last Admin: 11/17/18 21:30 Dose: 20 mg Docusate Sodium (Colace -) 100 mg PO TID [facility] Last Admin: 11/18/18 13:56 Dose: 100 mg Ferrous Sulfate (Feosol -) 325 mg PO BID [facility] Last Admin: 11/18/18 09:28 Dose: 325 mg Metronidazole (Flagyl 500mg Premixed Ivpb -) 500 mg in 100 mls @ 100 mls/hr IVPB Q8H-IV [facility] Last Admin: 11/18/18 10:25 Dose: 100 mls/hr Levofloxacin (Levaquin 250 Mg Premixed Ivpb -) 250 mg in 50 mls @ 50 mls/hr IVPB DAILY [facility] Last Admin: 11/18/18 12:25 Dose: 50 mls/hr Insulin Aspart (Novolog Vial Sliding Scale -) 1 vial SQ ACHS [facility]; Protocol Last Admin: 11/18/18 12:25 Dose: 4 unit Meclizine HCl (Antivert -) 25 mg PO DAILY PRN PRN Reason: dizziness Last Admin: 11/13/18 09:38 Dose: 25 mg Methylnaltrexone [place] (Relistor -) 12 mg SQ DAILY [facility] Last Admin: 11/18/18 09:35 Dose: 12 mg Metoclopramide HCl (Reglan Injection -) 10 mg IVPB Q8H-IV [facility] Last Admin: 11/18/18 09:35 Dose: 10 mg Metoprolol Succinate (Toprol Xl -) 25 mg PO DAILY [facility] Last Admin: 11/18/18 09:28 Dose: 25 mg Ondansetron HCl (Zofran Injection) 4 mg IVPB Q4H PRN PRN Reason: NAUSEA AND/OR VOMITING Pantoprazole Sodium (Protonix Iv) 40 mg IVPUSH BID [facility] Last Admin: 11/18/18 09:28 Dose: 40 mg Pregabalin (Lyrica -) 50 mg PO TID [facility] Last Admin: 11/18/18 13:59 Dose: Not Given Tamsulosin HCl (Flomax -) 0.4 mg PO DAILY@0830 [facility] Last Admin: 11/18/18 09:28 Dose: 0.4 mg - Objective Vital Signs: Vital Signs Temperature 97.8 F 11/18/18 09:45 Pulse Rate 72 11/18/18 09:45 Respiratory Rate 20 11/18/18 09:45 Blood Pressure 162/87 11/18/18 09:45 O2 Sat by Pulse Oximetry (%) 95 11/17/18 09:00 Constitutional: Yes: Calm Eyes: Yes: Conjunctiva Clear HENT: Yes: Atraumatic Cardiovascular: Yes: S1, S2 Respiratory: Yes: CTA Bilaterally Gastrointestinal: Yes: Soft Musculoskeletal: Yes: WNL Edema: Yes Edema: LLE: Trace, RLE: Trace Neurological: Yes: Oriented Psychiatric: Yes: Oriented Labs: CBC, BMP 11/17/18 05:50 11/17/18 05:50 Problem List - Problems (1) Abdominal pain Code(s): R10.9 - UNSPECIFIED ABDOMINAL PAIN Qualifiers: Abdominal location: epigastric Qualified Code(s): R10.13 - Epigastric pain (2) Acute pancreatitis Code(s): K85.90 - ACUTE PANCREATITIS WITHOUT NECROSIS OR INFECTION, UNSP Qualifiers: Pancreatitis type: other Acute pancreatitis complication: unspecified Qualified Code(s): K85.80 - Other acute pancreatitis without necrosis or infection (3) Chronic kidney disease Code(s): N18.9 - CHRONIC KIDNEY DISEASE, UNSPECIFIED Qualifiers: Chronic kidney disease stage: unspecified stage Qualified Code(s): N18.9 - Chronic kidney disease, unspecified Assessment/Plan Current Medications Generic Name Dose Route Start Last Admin Trade Name Freq PRN Reason Stop Dose Admin Allopurinol 100 mg 11/13/18 10:00 11/18/18 09:28 Zyloprim - PO 100 mg DAILY [facility] Administration Apixaban 2.5 mg 11/13/18 10:00 11/18/18 09:28 Eliquis - PO 2.5 mg BID [facility] Administration Atorvastatin Calcium 20 mg 11/13/18 22:00 11/17/18 21:30 Lipitor - PO 20 mg HS [facility] Administration Docusate Sodium 100 mg 11/16/18 22:15 11/18/18 13:56 Colace - PO 100 mg TID [facility] Administration Ferrous Sulfate 325 mg 11/13/18 10:00 11/18/18 09:28 Feosol - PO 325 mg BID [facility] Administration Metronidazole 500 mg in 100 mls @ 100 mls/hr 11/13/18 03:00 11/18/18 10:25 Flagyl 500mg Premixed Ivpb - IVPB 100 mls/hr Q8H-IV [facility] Administration Levofloxacin 250 mg in 50 mls @ 50 mls/hr 11/14/18 10:00 11/18/18 12:25 Levaquin 250 Mg Premixed Ivpb - IVPB 50 mls/hr DAILY [facility] Administration Insulin Aspart 1 vial 11/13/18 07:00 11/18/18 12:25 Novolog Vial Sliding Scale - SQ 4 unit ACHS [facility] Administration Protocol Meclizine HCl 25 mg 11/13/18 02:56 11/13/18 09:38 Antivert - PO 25 mg DAILY PRN Administration dizziness Methylnaltrexone [place] 12 mg 11/15/18 17:45 11/18/18 09:35 Relistor - SQ 12 mg DAILY [facility] Administration Metoclopramide HCl 10 mg 11/13/18 12:30 11/18/18 09:35 Reglan Injection - IVPB 10 mg Q8H-IV [facility] Administration Metoprolol Succinate 25 mg 11/13/18 10:00 11/18/18 09:28 Toprol Xl - PO 25 mg DAILY [facility] Administration Ondansetron HCl 4 mg 11/13/18 12:26 Zofran Injection IVPB Q4H PRN NAUSEA AND/OR VOMITING Pantoprazole Sodium 40 mg 11/13/18 23:00 11/18/18 09:28 Protonix Iv IVPUSH 40 mg BID [facility] Administration Pregabalin 50 mg 11/13/18 06:00 11/18/18 13:59 Lyrica - PO Not Given TID [facility] Tamsulosin HCl 0.4 mg 11/13/18 08:30 11/18/18 09:28 Flomax - PO 0.4 mg DAILY@0830 [facility] Administration Impression 1. pancreatitis 2. ckd 3. chf 4. cad 5. dm 6. hld 7. hx gi bleed Plan - pt tolerating diet and is off of fluids - monitor renal function - avoid nsaids - will need follow up for ckd - monitor volume status closely - will follow Dr Rosario
[2018-11-18] MEDS ORDERED: POLYETHYLENE GLYCOL 3350 119 GM BTL PO ONE (18:15)
--- NOTE | 2018-11-18 19:01 | PN ---
Progress Note, Physician - Current Medication List Current Medications: Active Medications Allopurinol (Zyloprim -) 100 mg PO DAILY [facility] Last Admin: 11/18/18 09:28 Dose: 100 mg Apixaban (Eliquis -) 2.5 mg PO BID [facility] Last Admin: 11/18/18 09:28 Dose: 2.5 mg Atorvastatin Calcium (Lipitor -) 20 mg PO HS [facility] Last Admin: 11/17/18 21:30 Dose: 20 mg Docusate Sodium (Colace -) 100 mg PO TID [facility] Last Admin: 11/18/18 13:56 Dose: 100 mg Ferrous Sulfate (Feosol -) 325 mg PO BID [facility] Last Admin: 11/18/18 10:37 Dose: Not Given Insulin Aspart (Novolog Vial Sliding Scale -) 1 vial SQ [facility]; Protocol Last Admin: 11/18/18 17:09 Dose: 4 unit Meclizine HCl (Antivert -) 25 mg PO DAILY PRN PRN Reason: dizziness Last Admin: 11/13/18 09:38 Dose: 25 mg Methylnaltrexone [place] (Relistor -) 12 mg SQ DAILY [facility] Last Admin: 11/18/18 09:35 Dose: 12 mg Metoprolol Succinate (Toprol Xl -) 25 mg PO DAILY [facility] Last Admin: 11/18/18 09:28 Dose: 25 mg Pregabalin (Lyrica -) 50 mg PO TID [facility] Last Admin: 11/18/18 13:59 Dose: Not Given Tamsulosin HCl (Flomax -) 0.4 mg PO DAILY@0830 [facility] Last Admin: 11/18/18 09:28 Dose: 0.4 mg - Objective Vital Signs: Vital Signs Temperature 97.3 F L 11/18/18 15:44 Pulse Rate 71 11/18/18 15:44 Respiratory Rate 18 11/18/18 15:44 Blood Pressure 144/69 11/18/18 15:44 O2 Sat by Pulse Oximetry (%) 98 11/18/18 09:00 Labs: CBC, BMP 11/17/18 05:50 11/17/18 05:50
[2018-11-18] MEDS ORDERED: MAGNESIUM CITRATE 300 ML BOTTLE PO ONE (20:03)
[2018-11-18] MEDS: ATORVASTATIN CA 20 MG TABLET (FP) PO SCH (22:36)
[2018-11-19] MEDS: DOCUSATE SODIUM 100 MG CAPSULE (FP) PO SCH ×2 (06:47→14:59)
[2018-11-19] MEDS: PREGABALIN 50 MG CAPSULE PO SCH ×2 (06:47→14:59)
[2018-11-19] MEDS: INSULIN SLIDING SCALE (NOVOLOG) 1 VIAL SQ SCH ×4 (06:47→16:59)
[2018-11-19 07:26] VITALS: TEMP 98.2
[2018-11-19] MEDS: TAMSULOSIN HCL 0.4 MG CAP PO SCH (08:33)
[2018-11-19] MEDS ORDERED: PT OWN MED DRAWER 7, Y5N ONE (09:56)
[2018-11-19] MEDS: metoPROLOL SUCCINATE 25 MG TAB.SR.24H (FP) PO SCH (10:32)
[2018-11-19] MEDS: ALLOPURINOL 100 MG TABLET (FP) PO SCH (10:32)
[2018-11-19] MEDS: APIXABAN 2.5 MG TABLET PO SCH (10:32)
[2018-11-19] MEDS: FERROUS SO4 325 MG TABLET (FP) PO SCH ×2 (10:32→10:38)
[2018-11-19] MEDS: Methylnaltrexone Bromide 12 MG/0.6 ML KIT SQ SCH (11:08)
[2018-11-19] MEDS ORDERED: INSULIN (NOVOLOG) ASPART 100 UNITS/ML 10ML VIAL ONE (11:43)
[2018-11-19] MEDS ORDERED: SENNOSIDES 8.6MG TABLET (FP) PO SCH (14:00)
--- NOTE | 2018-11-19 15:37 | PN ---
GI Progress Note Subjective: Patient denies abdominal pain, nausea vomiting. Complain of having reflux and early satiety. - Objective Vital Signs: Vital Signs Temperature 98.2 F 11/19/18 06:00 Pulse Rate 70 11/19/18 10:00 Respiratory Rate 20 11/19/18 10:00 Blood Pressure 144/75 11/19/18 10:00 O2 Sat by Pulse Oximetry (%) 100 11/19/18 09:00 Constitutional: No Distress, Calm Eyes: Yes: Conjunctiva Clear Neck: Yes: Supple Cardiovascular: Yes: Regular Rate and Rhythm Respiratory: Yes: Regular, CTA Bilaterally Gastrointestinal Inspection: Yes: Distention. No: WNL, Ascites, Hernia, Scars, Other ...Auscultate: Yes: Normoactive Bowel Sounds ...Palpate: Yes: Soft. No: Firm/Rigid, Guarding, Hepatomegaly, Mass, Pulsatile Mass, Splenomegaly, Tenderness, Tenderness, Epigastium, Tenderness, Rebound, Other ...Percussion: Yes: Other (high tympany). No: Dullness, Fluid Wave, Tympanitic Labs: CBC, BMP 11/17/18 05:50 11/17/18 05:50 Home Medication List Medication Instructions Recorded Confirmed Type Atorvastatin Ca [Lipitor] 20 mg PO HS 12/01/15 11/12/18 History Ranitidine [Zantac -] 150 mg PO BID 12/01/15 11/12/18 History Tamsulosin HCl 0.4 mg PO DAILY 12/01/15 11/12/18 History Linaclotide [Linzess] 145 mcg PO DAILY 11/04/16 11/12/18 History Linagliptin [Tradjenta] 5 mg PO DAILY 11/04/16 11/12/18 History Meclizine HCl [Antivert -] 25 mg PO DAILY PRN 11/04/16 11/12/18 History Metoprolol Succinate [Toprol Xl] 25 mg PO DAILY 02/18/17 11/12/18 History Allopurinol [Zyloprim -] 100 mg PO DAILY 09/01/17 11/12/18 History Ferrous Sulfate 325 mg PO BID 09/01/17 11/12/18 History Pregabalin [Lyrica -] 50 mg PO TID 09/01/17 11/12/18 History Tramadol HCl 50 mg PO DAILY PRN MDD 2 04/13/18 11/12/18 History Active Medications Generic Name Dose Route Start Last Admin Trade Name Herminio PRN Reason Stop Dose Admin Allopurinol 100 mg 11/13/18 10:00 11/19/18 10:32 Zyloprim - PO 100 mg DAILY [facility] Administration Apixaban 2.5 mg 11/13/18 10:00 11/19/18 10:32 Eliquis - PO 2.5 mg BID [facility] Administration Atorvastatin Calcium 20 mg 11/13/18 22:00 11/18/18 22:36 Lipitor - PO 20 mg HS [facility] Administration Docusate Sodium 100 mg 11/16/18 22:15 11/19/18 14:59 Colace - PO 100 mg TID [facility] Administration Ferrous Sulfate 325 mg 11/13/18 10:00 11/19/18 10:38 Feosol - PO Not Given BID [facility] Insulin Aspart 1 vial 11/13/18 07:00 11/19/18 11:46 Novolog Vial Sliding Scale - SQ Not Given ACHS [facility] Protocol Meclizine HCl 25 mg 11/13/18 02:56 11/13/18 09:38 Antivert - PO 25 mg DAILY PRN Administration dizziness Methylnaltrexone [place] 12 mg 11/15/18 17:45 11/19/18 11:08 Relistor - SQ 12 mg DAILY [facility] Administration Metoprolol Succinate 25 mg 11/13/18 10:00 11/19/18 10:32 Toprol Xl - PO 25 mg DAILY [facility] Administration Pregabalin 50 mg 11/13/18 06:00 11/19/18 14:59 Lyrica - PO 50 mg TID [facility] Administration Senna 1 tab 11/19/18 14:00 11/19/18 14:59 Senna - PO 1 tab BID [facility] Administration Tamsulosin HCl 0.4 mg 11/13/18 08:30 11/19/18 08:33 Flomax - PO 0.4 mg DAILY@0830 [facility] Administration Problem List - Problems (1) Acute pancreatitis Assessment/Plan: >R follow up with GI as outpatient CA 19-9 nl Code(s): K85.90 - ACUTE PANCREATITIS WITHOUT NECROSIS OR INFECTION, UNSP Qualifiers: Pancreatitis type: other Acute pancreatitis complication: unspecified Qualified Code(s): K85.80 - Other acute pancreatitis without necrosis or infection (2) Elevated CEA Assessment/Plan: >etiology unclear >R check PSA, GI including EGD and colonoscopy as outpatient, pt made aware to follow up Code(s): R97.0 - ELEVATED CARCINOEMBRYONIC ANTIGEN [CEA] (3) Early satiety Assessment/Plan: >start on reglan 5mg TID 30min AC Code(s): R68.81 - EARLY SATIETY (4) Acid reflux Assessment/Plan: >R start on pantoprazole 40mg qd Code(s): K21.9 - GASTRO-ESOPHAGEAL REFLUX DISEASE WITHOUT ESOPHAGITIS
[2018-11-19 15:49] VITALS: BP 172/79; PULSE 71
--- NOTE | 2018-11-19 16:24 | PN ---
Progress Note, Physician History of Present Illness: Pt seen and examined at bedside. He is awake and alert. He denies shortness of breath. - Current Medication List Current Medications: Active Medications Allopurinol (Zyloprim -) 100 mg PO DAILY [facility] Last Admin: 11/19/18 10:32 Dose: 100 mg Apixaban (Eliquis -) 2.5 mg PO BID [facility] Last Admin: 11/19/18 10:32 Dose: 2.5 mg Atorvastatin Calcium (Lipitor -) 20 mg PO HS [facility] Last Admin: 11/18/18 22:36 Dose: 20 mg Docusate Sodium (Colace -) 100 mg PO TID [facility] Last Admin: 11/19/18 14:59 Dose: 100 mg Ferrous Sulfate (Feosol -) 325 mg PO BID [facility] Last Admin: 11/19/18 10:38 Dose: Not Given Insulin Aspart (Novolog Vial Sliding Scale -) 1 vial SQ [facility]; Protocol Last Admin: 11/19/18 11:46 Dose: Not Given Meclizine HCl (Antivert -) 25 mg PO DAILY PRN PRN Reason: dizziness Last Admin: 11/13/18 09:38 Dose: 25 mg Methylnaltrexone [place] (Relistor -) 12 mg SQ DAILY [facility] Last Admin: 11/19/18 11:08 Dose: 12 mg Metoprolol Succinate (Toprol Xl -) 25 mg PO DAILY [facility] Last Admin: 11/19/18 10:32 Dose: 25 mg Pregabalin (Lyrica -) 50 mg PO TID [facility] Last Admin: 11/19/18 14:59 Dose: 50 mg Senna (Senna -) 1 tab PO BID [facility] Last Admin: 11/19/18 14:59 Dose: 1 tab Tamsulosin HCl (Flomax -) 0.4 mg PO DAILY@0830 [facility] Last Admin: 11/19/18 08:33 Dose: 0.4 mg - Objective Vital Signs: Vital Signs Temperature 98.2 F 11/19/18 15:37 Pulse Rate 71 11/19/18 15:37 Respiratory Rate 20 11/19/18 15:37 Blood Pressure 172/79 H 11/19/18 15:37 O2 Sat by Pulse Oximetry (%) 100 11/19/18 09:00 Constitutional: Yes: Calm Eyes: Yes: Conjunctiva Clear HENT: Yes: Atraumatic Cardiovascular: Yes: S1, S2 Respiratory: Yes: CTA Bilaterally Gastrointestinal: Yes: Soft Genitourinary: Yes: WNL Musculoskeletal: Yes: WNL Edema: Yes Edema: LLE: 1+, RLE: 1+ Neurological: Yes: Oriented Psychiatric: Yes: Oriented Labs: CBC, BMP 11/17/18 05:50 11/17/18 05:50 Problem List - Problems (1) Abdominal pain Code(s): R10.9 - UNSPECIFIED ABDOMINAL PAIN Qualifiers: Qualified Code(s): R10.13 - Epigastric pain (2) Acute pancreatitis Code(s): K85.90 - ACUTE PANCREATITIS WITHOUT NECROSIS OR INFECTION, UNSP Qualifiers: Qualified Code(s): K85.80 - Other acute pancreatitis without necrosis or infection (3) Chronic kidney disease Code(s): N18.9 - CHRONIC KIDNEY DISEASE, UNSPECIFIED Qualifiers: Qualified Code(s): N18.9 - Chronic kidney disease, unspecified Assessment/Plan Current Medications Generic Name Dose Route Start Last Admin Trade Name Freq PRN Reason Stop Dose Admin Allopurinol 100 mg 11/13/18 10:00 11/19/18 10:32 Zyloprim - PO 100 mg DAILY [facility] Administration Apixaban 2.5 mg 11/13/18 10:00 11/19/18 10:32 Eliquis - PO 2.5 mg BID [facility] Administration Atorvastatin Calcium 20 mg 11/13/18 22:00 11/18/18 22:36 Lipitor - PO 20 mg HS [facility] Administration Docusate Sodium 100 mg 11/16/18 22:15 11/19/18 14:59 Colace - PO 100 mg TID [facility] Administration Ferrous Sulfate 325 mg 11/13/18 10:00 11/19/18 10:38 Feosol - PO Not Given BID [facility] Insulin Aspart 1 vial 11/13/18 07:00 11/19/18 11:46 Novolog Vial Sliding Scale - SQ Not Given ACHS [facility] Protocol Meclizine HCl 25 mg 11/13/18 02:56 11/13/18 09:38 Antivert - PO 25 mg DAILY PRN Administration dizziness Methylnaltrexone [place] 12 mg 11/15/18 17:45 11/19/18 11:08 Relistor - SQ 12 mg DAILY [facility] Administration Metoprolol Succinate 25 mg 11/13/18 10:00 11/19/18 10:32 Toprol Xl - PO 25 mg DAILY [facility] Administration Pregabalin 50 mg 11/13/18 06:00 11/19/18 14:59 Lyrica - PO 50 mg TID [facility] Administration Senna 1 tab 11/19/18 14:00 11/19/18 14:59 Senna - PO 1 tab BID [facility] Administration Tamsulosin HCl 0.4 mg 11/13/18 08:30 11/19/18 08:33 Flomax - PO 0.4 mg DAILY@0830 [facility] Administration Impression 1. pancreatitis 2. ckd 3. chf 4. cad 5. dm 6. hld 7. hx gi bleed Plan - monitor labs - pt tolerating diet - avoid nsaids - will need follow up for ckd - monitor volume status closely - can see in office after discharge Dr Rosario
[2018-11-19] MEDS ORDERED: METOCLOPRAMIDE HCL 10 MG TABLET (FP) PO SCH (16:30)
[2018-11-19] MEDS ORDERED: MAGNESIUM CITRATE 300 ML BOTTLE PO ONE (17:00)
--- NOTE | 2018-11-19 18:06 | PN ---
Progress Note, Physician - Current Medication List Current Medications: Active Medications Allopurinol (Zyloprim -) 100 mg PO DAILY [facility] Last Admin: 11/19/18 10:32 Dose: 100 mg Apixaban (Eliquis -) 2.5 mg PO BID [facility] Last Admin: 11/19/18 10:32 Dose: 2.5 mg Atorvastatin Calcium (Lipitor -) 20 mg PO HS [facility] Last Admin: 11/18/18 22:36 Dose: 20 mg Docusate Sodium (Colace -) 100 mg PO TID [facility] Last Admin: 11/19/18 14:59 Dose: 100 mg Ferrous Sulfate (Feosol -) 325 mg PO BID [facility] Last Admin: 11/19/18 10:38 Dose: Not Given Insulin Aspart (Novolog Vial Sliding Scale -) 1 vial SQ [facility]; Protocol Last Admin: 11/19/18 16:59 Dose: Not Given Meclizine HCl (Antivert -) 25 mg PO DAILY PRN PRN Reason: dizziness Last Admin: 11/13/18 09:38 Dose: 25 mg Methylnaltrexone [place] (Relistor -) 12 mg SQ DAILY [facility] Last Admin: 11/19/18 11:08 Dose: 12 mg Metoclopramide HCl (Reglan -) 5 mg PO TIDAC [facility] Last Admin: 11/19/18 16:58 Dose: 5 mg Metoprolol Succinate (Toprol Xl -) 25 mg PO DAILY [facility] Last Admin: 11/19/18 10:32 Dose: 25 mg Pantoprazole Sodium (Protonix -) 40 mg PO DAILY [facility] Pregabalin (Lyrica -) 50 mg PO TID [facility] Last Admin: 11/19/18 14:59 Dose: 50 mg Senna (Senna -) 1 tab PO BID [facility] Last Admin: 11/19/18 14:59 Dose: 1 tab Tamsulosin HCl (Flomax -) 0.4 mg PO DAILY@0830 [facility] Last Admin: 11/19/18 08:33 Dose: 0.4 mg - Objective Vital Signs: Vital Signs Temperature 98.2 F 11/19/18 15:37 Pulse Rate 71 11/19/18 15:37 Respiratory Rate 20 11/19/18 15:37 Blood Pressure 172/79 H 11/19/18 15:37 O2 Sat by Pulse Oximetry (%) 100 11/19/18 09:00 Labs: CBC, BMP 11/17/18 05:50 11/17/18 05:50
[2018-11-20] MEDS ORDERED: PANTOPRAZOLE 40 MG TABLET (FP) PO SCH (10:00)
== END 2018-11-19 18:30 | disposition home or self-care (01) | DRG 439 ==
LOC: JER 16:53 → JERBED 11-13 00:13 → J5S 11-13 16:29
PROVIDERS: ADMIT Internal Medicine; ATTEND Internal Medicine
DX: K85.90 Acute pancreatitis without necrosis or infection, unspecified (principal); I13.0 Hypertensive heart and chronic kidney disease with heart failure and stage 1 through stage 4 chronic kidney disease, or unspecified chronic kidney disease; N18.4 Chronic kidney disease, stage 4 (severe); N17.9 Acute kidney failure, unspecified; E11.65 Type 2 diabetes mellitus with hyperglycemia; I25.10 Atherosclerotic heart disease of native coronary artery without angina pectoris; E78.5 Hyperlipidemia, unspecified; M10.9 Gout, unspecified; E11.22 Type 2 diabetes mellitus with diabetic chronic kidney disease; I50.9 Heart failure, unspecified; I48.91 Unspecified atrial fibrillation; K59.09 Other constipation; K21.9 Gastro-esophageal reflux disease without esophagitis; R10.13 Epigastric pain; R97.0 Elevated carcinoembryonic antigen [CEA]; M19.90 Unspecified osteoarthritis, unspecified site; N40.0 Benign prostatic hyperplasia without lower urinary tract symptoms; D64.9 Anemia, unspecified; R68.81 Early satiety; Z95.5 Presence of coronary angioplasty implant and graft; Z95.0 Presence of cardiac pacemaker; Z96.653 Presence of artificial knee joint, bilateral
CPT/HCPCS: 36415; 71046-TC-FY; 74019-TC-FY; 74176-TC; 76775-TC; 80053; 81003; 81015; 82150; 82378; 82436; 82570; 82962; 83605; 83690; 83735; 84100; 84133; 84156; 84300; 85025; 86301; 93005; 93010; 99285-25

== ENCOUNTER 2019-07-28 16:12 | Emergency (ER) | payer OTHER ==
--- NOTE | 2019-07-28 16:24 | PDOC ---
Rapid Medical Evaluation Chief Complaint: Pain Time Seen by Provider: 07/28/19 16:21 Medical Evaluation: Allergies Allergy/AdvReac Type Severity Reaction Status Date / Time No Known Drug Allergies Allergy Verified 07/28/19 16:19 07/28/19 16:21 CC: Left knee pain x3 weeks s/p fall out of bed PE: No warmth or erythema to left knee. No deformity. Orders: xray Patient to proceed to ED for evaluation. 07/28/19 16:23 Discharge Disposition - Diagnosis Left knee pain - Referrals - Patient Instructions - Post Discharge Activity
[2019-07-28 16:25] VITALS: BP 100/61; PULSE 60; TEMP 98.1; BMI 33.8
--- NOTE | 2019-07-28 17:21 | PDOC ---
History of Present Illness - General Chief Complaint: Pain Stated Complaint: PAIN LEFT KNEE Time Seen by Provider: 07/28/19 16:21 - History of Present Illness Initial Comments: 07/28/19 17:16 83 y/o M 5 years s/p L TKA presents for evaluation of L knee pain x2 weeks. Past History - Past Medical History Allergies/Adverse Reactions: Allergies Allergy/AdvReac Type Severity Reaction Status Date / Time No Known Drug Allergies Allergy Verified 07/28/19 16:19 Home Medications: Ambulatory Orders Atorvastatin Ca [Lipitor] 20 mg PO HS 12/01/15 Ranitidine [Zantac -] 150 mg PO BID 12/01/15 Tamsulosin HCl 0.4 mg PO DAILY 12/01/15 Linaclotide [Linzess] 145 mcg PO DAILY 11/04/16 Linagliptin [Tradjenta] 5 mg PO DAILY 11/04/16 Meclizine HCl [Antivert -] 25 mg PO DAILY PRN 11/04/16 Metoprolol Succinate [Toprol Xl] 25 mg PO DAILY 02/18/17 Apixaban [Eliquis -] 2.5 mg PO BID #30 tablet 04/13/17 Allopurinol [Zyloprim -] 100 mg PO DAILY 09/01/17 Ferrous Sulfate 325 mg PO BID 09/01/17 Pregabalin [Lyrica -] 50 mg PO TID 09/01/17 Tramadol HCl 50 mg PO DAILY PRN MDD 2 04/13/18 Furosemide [Lasix -] 40 mg PO DAILY tablet 04/16/18 Docusate Sodium [Colace -] 100 mg PO TID #90 capsule 11/18/18 Anemia: No Asthma: No Cancer: No Cardiac Disorders: Yes (CAD) CVA: No COPD: No CHF: No Dementia: No Diabetes: Yes GI Disorders: No Disorders: Yes (?) HTN: Yes Hypercholesterolemia: Yes Liver Disease: No Seizures: No Thyroid Disease: No - Surgical History Abdominal Surgery: No Appendectomy: No Cardiac Surgery: Yes (pacemaker, STENTS) Cholecystectomy: Yes Lung Surgery: No Neurologic Surgery: No Orthopedic Surgery: (Yes, bilateral knee replacement) - Psycho Social/Smoking Cessation Hx Smoking Status: No Smoking History: Never smoked Have you smoked in the past 12 months: No Number of Cigarettes Smoked Daily: 0 If you are a former smoker, when did you quit?: "long time ago" Cigars Per Day: 0 Information on smoking cessation initiated: No Hx Alcohol Use: No Drug/Substance Use Hx: No Substance Use Type: None Hx Substance Use Treatment: No Review of Systems - Review of Systems Constitutional: No: Fever Musculoskeletal: Yes: Joint Pain *Physical Exam - Vital Signs Last Vital Signs Temp Pulse Resp BP Pulse Ox 98.1 F 60 20 100/61 98 07/28/19 16:19 07/28/19 16:19 07/28/19 16:19 07/28/19 16:19 07/28/19 16:19 - Physical Exam Comments: 07/28/19 17:17 L knee skin color and temperature are normal. The midline incision is well healed. ROM 0-90 without pain no instability thigh and calf are soft and on tender NVID Medical Decision Making - Medical Decision Making 07/28/19 17:18 Benign examination x-rays show TKA in good position Discharge - Discharge Information Problems reviewed: Yes Clinical Impression/Diagnosis: Left knee pain Condition: Stable Disposition: HOME - Admission No - Follow up/Referral Referrals: Don Patterson MD [Primary Care Provider] - Henry Johnson MD [Staff Physician] - - Patient Discharge Instructions Additional Instructions: Continue your medication and without fail please follow up with your orthopedic surgeon in 1-2 days for further evaluation and treatment options. Return to the emergency room should symptoms worsen. - Post Discharge Activity
== END 2019-07-28 17:36 | disposition home or self-care (01) ==
LOC: JER 16:12 → JERFT 16:12
DX: M25.562 Pain in left knee (principal); W06.XXXA Fall from bed, initial encounter; Y93.89 Activity, other specified; Y92.032 Bedroom in apartment as the place of occurrence of the external cause; Y99.8 Other external cause status; I25.10 Atherosclerotic heart disease of native coronary artery without angina pectoris; I10 Essential (primary) hypertension; Z95.5 Presence of coronary angioplasty implant and graft; E11.9 Type 2 diabetes mellitus without complications; Z79.84 Long term (current) use of oral hypoglycemic drugs; Z95.0 Presence of cardiac pacemaker
CPT/HCPCS: 73562-TC-LT-FY; 99281-25

== ENCOUNTER 2020-06-08 08:08 | Emergency (ER) | payer OTHER ==
[2020-06-08 08:15] VITALS: BMI 28.1
--- NOTE | 2020-06-08 08:24 | PDOC ---
History of Present Illness - General Chief Complaint: Chest Pain Stated Complaint: SOB Time Seen by Provider: 06/08/20 08:23 - History of Present Illness Initial Comments: 06/08/20 08:28 84 year old man with a history of CKD, HLD, CAD, H/o high degree HB s/p PPM placement 2011, replacement 2018, DM, CHF, Gout, Anemia, GIB, s/p CCY who presents with cough productive of yellow phlegm, 5 days of chest pain only while coughing and some shortness of breath that occurs while walking occasionally. The patient's family returned from [facility] 1 week ago. No one in the family has sick symptoms. He has no fever or chills or any other symptoms. ROS GENERAL/CONSTITUTIONAL: No fever or chills. No weakness. HEAD, EYES, EARS, NOSE AND THROAT: No change in vision. No ear pain or discharge. No sore throat. CARDIOVASCULAR: + chest pain or shortness of breath RESPIRATORY: No cough, wheezing, or hemoptysis. GASTROINTESTINAL: No nausea, vomiting, diarrhea or constipation. GENITOURINARY: No dysuria, frequency, or change in urination. MUSCULOSKELETAL: No joint or muscle swelling or pain. No neck or back pain. SKIN: No rash NEUROLOGIC: No headache, vertigo, loss of consciousness, or change in strength/sensation. ENDOCRINE: No increased thirst. No abnormal weight change HEMATOLOGIC/LYMPHATIC: No anemia, easy bleeding, or history of blood clots. ALLERGIC/IMMUNOLOGIC: No hives or skin allergy. PE GENERAL: Awake, alert, and fully oriented, in no acute distress HEAD: No signs of trauma, normocephalic, atraumatic EYES: EOMI, sclera anicteric, conjunctiva clear ENT: oropharynx clear without exudates. Moist mucosa NECK: Normal ROM, supple LUNGS: No distress, speaks full sentences, clear to auscultation bilaterally HEART: Regular rate and rhythm, normal S1 and S2, no murmurs, rubs or gallops, peripheral pulses normal and equal bilaterally. ABDOMEN: Soft, nontender. No guarding, no rebound. No masses EXTREMITIES : Normal inspection, Normal range of motion, no edema. No clubbing or cyanosis. NEUROLOGICAL: Cranial nerves II through XII grossly intact. Normal speech, normal gait, no focal sensorimotor deficits SKIN: Warm, Dry, normal turgor, no rashes or lesions noted Assessment and Plan 84 year old man with a history of CKD, HLD, CAD, H/o high degree HB s/p PPM placement 2011, replacement 2018, DM, CHF, Gout, Anemia, GIB, s/p CCY who presents with cough productive of yellow phlegm, 5 days of chest pain only while coughing and some shortness of breath that occurs while walking occasionally. Consider pleuritic pain vs costochondritiis vs pna vs covid, r.o ACS vs CHF exacerbation - cbc, cmp, trop, bnp, ekg, cxr labwork largely wnl Symptoms and history most likely bronchitis Will dose Z anand and outpt f/u instruction Past History - Medical History Allergies/Adverse Reactions: Allergies Allergy/AdvReac Type Severity Reaction Status Date / Time No Known Drug Allergies Allergy Verified 07/28/19 16:19 Home Medications: Ambulatory Orders Atorvastatin Ca [Lipitor] 20 mg PO HS 12/01/15 Ranitidine [Zantac -] 150 mg PO BID 12/01/15 Tamsulosin HCl 0.4 mg PO DAILY 12/01/15 Linaclotide [Linzess] 145 mcg PO DAILY 11/04/16 Linagliptin [Tradjenta] 5 mg PO DAILY 11/04/16 Meclizine HCl [Antivert -] 25 mg PO DAILY PRN 11/04/16 Metoprolol Succinate [Toprol Xl] 25 mg PO DAILY 02/18/17 Apixaban [Eliquis -] 2.5 mg PO BID #30 tablet 04/13/17 Allopurinol [Zyloprim -] 100 mg PO DAILY 09/01/17 Ferrous Sulfate 325 mg PO BID 09/01/17 Pregabalin [Lyrica -] 50 mg PO TID 09/01/17 Furosemide [Lasix -] 40 mg PO DAILY tablet 04/16/18 Docusate Sodium [Colace -] 100 mg PO TID #90 capsule 11/18/18 Aspirin [ASA -] 81 mg PO DAILY #30 tab.chew 01/14/20 Lisinopril [Prinivil] 5 mg PO DAILY #30 tablet 01/14/20 Metoprolol Succinate [Toprol XL -] 100 mg PO DAILY #30 tab.sr.24h 01/14/20 Azithromycin [Zithromax Tri-Anand (3 DAYS) -] 500 mg PO DAILY #3 tablet 06/08/20 Anemia: No Asthma: No Cancer: No Cardiac Disorders: Yes (CAD) CVA: No COPD: No CHF: No Dementia: No Diabetes: Yes GI Disorders: No Disorders: Yes (?) HTN: Yes Hypercholesterolemia: Yes Liver Disease: No Seizures: No Thyroid Disease: No - Surgical History Abdominal Surgery: No Appendectomy: No Cardiac Surgery: Yes (pacemaker, STENTS) Cholecystectomy: Yes Lung Surgery: No Neurologic Surgery: No Orthopedic Surgery: (Yes, bilateral knee replacement) - Immunization History Immunization Up to Date: No - Psycho-Social/Smoking History Smoking Status: No Smoking History: Never smoked Have you smoked in the past 12 months: No Number of Cigarettes Smoked Daily: 0 If you are a former smoker, when did you quit?: "long time ago" Cigars Per Day: 0 Information on smoking cessation initiated: No - Substance Abuse Hx (Audit-C & DAST Scrn) How often the patient has a drink containing alcohol: Never Score: In Men: 4 or > Positive; In Women: 3 or > Positive: 0 Screen Result (Pos requires Nsg. Audit-10AR): Negative In the last yr the pt used illegal drug/Rx for NonMed reason: No Score: Yes response is considered Positive: 0 Screen Result (Positive result requires Nsg. DAST-10): Negative *Physical Exam - Vital Signs Last Vital Signs Temp Pulse Resp BP Pulse Ox 98.2 F 69 16 129/72 95 06/08/20 08:13 06/08/20 08:13 06/08/20 08:13 06/08/20 08:13 06/08/20 08:13 ED Treatment Course - LABORATORY CBC & Chemistry Diagram: 06/08/20 08:57 06/08/20 08:57 Discharge - Discharge Information Problems reviewed: Yes Clinical Impression/Diagnosis: Atypical chest pain, Bronchitis Condition: Stable Disposition: HOME - Additional Discharge Information Prescriptions: Azithromycin [Zithromax Tri-Anand (3 DAYS) -] 500 mg PO DAILY #3 tablet - Follow up/Referral Referrals: Don Patterson MD [Primary Care Provider] - - Patient Discharge Instructions Patient Printed Discharge Instructions: DI for Acute Bronchitis, DI for Atypical Chest Pain Additional Instructions: You were seen in the ED for complaints of chest pain and cough. In the ED you were evaluated with labwork and imaging. Your results were within normal. There does not appear to be an acute need for immediate hospitalization. You are advised to follow up with your Primary Care Physician within 1 week. You were prescribed a Azithromycin course which should be completed as prescribed. Return to the ED immediately if you experience worsening chest pain, cough, fever, chills or any other concerning symptoms. - Post Discharge Activity
--- NOTE | 2020-06-08 08:52 | PDOC ---
Attending Attestation - Resident Resident Name: Stevan Redmanie - ED Attending Attestation I have performed the following: I have examined & evaluated the patient, The case was reviewed & discussed with the resident, I agree w/resident's findings & plan, Exceptions are as noted - HPI HPI: 06/08/20 08:57 84y M hx of htn, dm, ckd, cad hx of high grade HB sp PM, CHF, presents with 5-6 days of cough productive of yellowish sputum, associated with sharp cp when coughing. Cough is productive of greenish sputim. Patient denies any fever, chills, diaphoresis, nausea, vomiting, back pain, abdominal pain. There was a history ofTravel in the family where his family members traveled to [place] but have been asymptomatic. Denies any hemoptysis, leg swelling. Denies any diarrhea, melena, BPR PMD: Yesenia Cards:[facility] - Physicial Exam PE: 06/08/20 09:39 GENERAL: The patient is awake, alert, and fully oriented, Nontoxic - in no acute distress. HEAD: Normocephalic, atraumatic. EYES: extraocular movements intact, sclera anicteric, conjunctiva clear. ENT: Normal voice, Moist mucous membranes. NECK: Normal range of motion, supple LUNGS: Breath sounds equal, clear to auscultation bilaterally. No wheezes, no rhonchi, no rales. HEART: Regular rate and rhythm, normal S1 and S2 without murmur, rub or gallop. ABDOMEN: Soft, nontender, No guarding, no rebound. No CVA tenderness EXTREMITIES: Normal range of motion, Trace edema. Pulses symmetric bilaterally in upper extremities NEUROLOGICAL: No facial assymetry, Normal speech, PSYCH: Normal mood, normal affect. SKIN: Warm, Dry, normal turgor, - Medical Decision Making 06/08/20 09:40 Differential for the patient's symptoms includes bronchitis, pneumonia, ACS, anemia, metabolic derangement, pleurisy Will obtain blood work, chest x-ray, EKG 06/08/20 10:41 The patient's blood works reviewed the patient's creatinine is elevated although at approximately. Patient's BNP and troponin are borderline however is in line with his baseline, And I suspected elevated due to his diminished renal clearance. Chest x-ray does not reveal any acute pathology. Will obtain second troponin, will reassess anticipate discharge with outpatient follow-up Heart Score/ECG Review - ECG Impressions Comment:: 06/08/20 09:40 Twelve-lead EKG was performed and reviewed by me. EKG performed: Paced ventricular rhythm Rate of 70 No signs of ischemia via Sgarbossa criteria No significant changes when compared to EKG in 2019 Discharge - Discharge Information Problems reviewed: Yes Clinical Impression/Diagnosis: Atypical chest pain, Bronchitis Condition: Stable - Additional Discharge Information Prescriptions: Azithromycin [Zithromax Tri-Anand (3 DAYS) -] 500 mg PO DAILY #3 tablet - Follow up/Referral Referrals: Don Patterson MD [Primary Care Provider] - - Patient Discharge Instructions Patient Printed Discharge Instructions: DI for Acute Bronchitis, DI for Atypical Chest Pain Additional Instructions: You were seen in the ED for complaints of chest pain and cough. In the ED you were evaluated with labwork and imaging. Your results were within normal. There does not appear to be an acute need for immediate hospitalization. You are advised to follow up with your Primary Care Physician within 1 week. You were prescribed a Azithromycin course which should be completed as prescribed. Return to the ED immediately if you experience worsening chest pain, cough, fever, chills or any other concerning symptoms. - Post Discharge Activity
[2020-06-08 09:22] LABS: BASO % 0.5 % (0-2.0); EOS % 1.3 % (0-4.5); HEMATOCRIT 37.9 % (35.4-49); HEMOGLOBIN 12.5 GM/dL (11.7-16.9); LYMPH % 23.4 % (8-40); MCH 33.8 pg (25.7-33.7); MCHC 32.9 g/dl (32.0-35.9); MEAN CELL VOLUME 102.7 fl (80-96); MEAN PLT VOLUME 7.4 fl (7.5-11.1); MONO % 7.6 % (3.8-10.2); NEUT % 67.2 % (42.8-82.8); PLATELET COUNT 212 K/MM3 (134-434); RBC 3.69 M/mm3 (4.00-5.60); RDW 14.2 % (11.9-15.9); WHITE BLOOD COUNT 10.3 K/mm3 (4.0-10.0)
[2020-06-08 09:43] LABS: INR 1.81 (0.83-1.09); PROTHROMBIN TIME (PATIENT) 21.5 SEC (9.7-13.0)
[2020-06-08 09:45] LABS: ACTIVATED PTT 37.2 SECONDS (25.2-36.5)
[2020-06-08 09:59] LABS: ALBUMIN 3.1 g/dl (3.4-5.0); BILIRUBIN,TOTAL 0.4 mg/dL (0.2-1); BLOOD UREA NITROGEN 40.1 mg/dL (7-18); CALCIUM 8.8 mg/dL (8.5-10.1); CREATININE 2.5 mg/dL (0.55-1.3); N-TERMINAL BNP 3097.4 pg/ml (5-450); POTASSIUM 4.3 mmol/L (3.5-5.1); TOT PROT 7.1 g/dl (6.4-8.2)
[2020-06-08 12:18] VITALS: BP 128/72; PULSE 65; TEMP 98.1
--- NOTE | 2020-06-09 13:18 | EKG ---
Test Reason : Blood Pressure : / mmHG Vent. Rate : 070 BPM Atrial Rate : 129 BPM P-R Int : 000 ms QRS Dur : 162 ms QT Int : 450 ms P-R-T Axes : 000 -61 106 degrees QTc Int : 486 ms Ventricular-paced rhythm LEFT AXIS DEVIATION LEFT VENTRICULAR HYPERTROPHY WITH QRS WIDENING AND REPOLARIZATION ABNORMALITY ABNORMAL ECG Confirmed by MD FERMIN, TERRENCE ([id number]) on 06/09/2020 1:17:56 PM Referred By: Confirmed By:TERRENCE CHRISTENSEN MD
== END 2020-06-08 10:45 | disposition home or self-care (01) ==
LOC: JER 08:08
DX: J40 Bronchitis, not specified as acute or chronic (principal)
CPT/HCPCS: 36415; 71045-TC-FY; 80053; 83880; 84484; 85025; 85610; 85730; 93005; 93010; 99285-25

== ENCOUNTER 2020-06-17 09:17 | Inpatient (IN) | payer OTHER ==
[2020-06-17 09:30] VITALS: BMI 28.1
[2020-06-17] MEDS ORDERED: ACETAMINOPHEN 1000 MG/100 ML VIAL (NON FORMULARY) IVPB ONE (09:56)
[2020-06-17] MEDS ORDERED: ACETAMINOPHEN INJECTION 100 ML IVPB ONE (10:10)
--- NOTE | 2020-06-17 11:25 | PDOC ---
History of Present Illness - General Chief Complaint: Chest Pain Stated Complaint: CHEST PAIN Time Seen by Provider: 06/17/20 09:51 - History of Present Illness Initial Comments: 06/17/20 12:49 84 yo male with pmh hi of CKD, HLD, CAD, H/o high degree HB s/p PPM placement 2011, replacement 2018, DM, CHF, Gout, Anemia, GIB, s/p CCY presents to the ED for chest pain and cough that started two weeks ago. Pt speaks mosotho so kinj[address] ter translated. PT explains he has been having chest pain and cough and was seen in the ED last week. Pt was given azithromycin and dc. PT explains cough with productive yellow sputum was worsening and chest pain that has started to radiate to the back. Pt explains chest pain is sharp and pressure like and is 8/10 in pain. Pt explains it is associated with SOB and worsening with cough. 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 Pt is also on clindamycin since April 30 due to an abdominal infection in April but those symptoms have subsided. PT denies nausea, vomiting, emesis, diarrhea, lightheadedness, fevers, chills. PMH: CKD, HLD, CAD, H/o high DM, CHF, Gout, Anemia, GIB PSH: stents, pacemaker Allergies: denies Social: 125 pack year history; social alcohol drinker; denies drugs PCP: Dr. Don Patterson Past History - Medical History Allergies/Adverse Reactions: Allergies Allergy/AdvReac Type Severity Reaction Status Date / Time No Known Drug Allergies Allergy Verified 07/28/19 16:19 Home Medications: Ambulatory Orders Atorvastatin Ca [Lipitor] 20 mg PO HS 12/01/15 Tamsulosin HCl 0.4 mg PO DAILY 12/01/15 Linagliptin [Tradjenta] 5 mg PO DAILY 11/04/16 Meclizine HCl [Antivert -] 25 mg PO DAILY PRN 11/04/16 Metoprolol Succinate [Toprol Xl] 50 mg PO DAILY 02/18/17 Apixaban [Eliquis -] 2.5 mg PO BID #30 tablet 04/13/17 Furosemide [Lasix -] 40 mg PO DAILY tablet 04/16/18 Lisinopril [Prinivil] 5 mg PO DAILY #30 tablet 01/14/20 Linaclotide [Linzess] 72 mcg PO DAILY 06/17/20 Anemia: No Asthma: No Cancer: No Cardiac Disorders: Yes (CAD) CVA: No COPD: No CHF: No Dementia: No Diabetes: Yes GI Disorders: No Disorders: Yes (?) HTN: Yes Hypercholesterolemia: Yes Liver Disease: No Seizures: No Thyroid Disease: No - Surgical History Abdominal Surgery: No Appendectomy: No Cardiac Surgery: Yes (pacemaker, STENTS) Cholecystectomy: Yes Lung Surgery: No Neurologic Surgery: No Orthopedic Surgery: (Yes, bilateral knee replacement) - Immunization History Immunization Up to Date: No - Psycho-Social/Smoking History Smoking Status: No Smoking History: Never smoked Have you smoked in the past 12 months: No Number of Cigarettes Smoked Daily: 0 If you are a former smoker, when did you quit?: "long time ago" Cigars Per Day: 0 Information on smoking cessation initiated: No - Substance Abuse Hx (Audit-C & DAST Scrn) How often the patient has a drink containing alcohol: Never Score: In Men: 4 or > Positive; In Women: 3 or > Positive: 0 Screen Result (Pos requires Nsg. Audit-10AR): Negative In the last yr the pt used illegal drug/Rx for NonMed reason: No Score: Yes response is considered Positive: 0 Screen Result (Positive result requires Nsg. DAST-10): Negative Review of Systems - Review of Systems Comments:: 06/17/20 20:36 GENERAL/CONSTITUTIONAL: No fever or chills. No weakness. HEAD, EYES, EARS, NOSE AND THROAT: No change in vision. No ear pain or discharge. No sore throat. CARDIOVASCULAR: Chest pain and sob. RESPIRATORY: Sputum Productive cough GASTROINTESTINAL: No nausea, vomiting, diarrhea or constipation. GENITOURINARY: No dysuria. Urinary frequency since taking lasix MUSCULOSKELETAL: No joint or muscle swelling or pain. No neck or back pain. SKIN: No rash NEUROLOGIC: No headache, vertigo, loss of consciousness, or change in strength/sensation. ENDOCRINE: No increased thirst. No abnormal weight change ALLERGIC/IMMUNOLOGIC: No hives or skin allergy. *Physical Exam - Vital Signs Last Vital Signs Temp Pulse Resp BP Pulse Ox 98.6 F 70 17 144/77 99 06/17/20 09:25 06/17/20 09:25 06/17/20 09:25 06/17/20 09:25 06/17/20 09:25 - Physical Exam 06/17/20 13:38 GENERAL: Awake, alert, and fully oriented, in no acute distress HEAD: No signs of trauma, normocephalic, atraumatic EYES: PERRLA, EOMI, sclera anicteric, conjunctiva clear ENT: Auricles normal inspection, hearing grossly normal, nares patent, oropharynx clear without exudates. Moist mucosa NECK: Normal ROM, supple, no lymphadenopathy, JVD, or masses LUNGS: No distress, speaks full sentences, clear to auscultation bilaterally HEART: Regular rate and rhythm, normal S1 and S2, no murmurs, rubs or gallops, peripheral pulses normal and equal bilaterally. ABDOMEN: Hiatal hernia present. Normoactive bowel sounds in all four quadrants. Mild tenderness to palpation in RLQ (chronic since hernia). EXTREMITIES : Normal inspection, Normal range of motion, 1+ edema bilaterally. No clubbing or cyanosis. NEUROLOGICAL: Cranial nerves II through XII grossly intact. Normal speech SKIN: Warm, Dry, normal turgor, no rashes or lesions noted 06/17/20 20:34 Heart Score/ECG Review - ECG Impressions Comment:: 06/17/20 14:29 Ventricular paced rhythm at 75 bpm Regular rate with PVCs No AK intervals Prolonged QRS possible LBBB Normal QT interval No st changes from prior ekg. ED Treatment Course - LABORATORY CBC & Chemistry Diagram: 06/17/20 11:00 06/17/20 11:00 - Medications Given in the ED: ED Medications Discontinued Medications Generic Name Dose Route Start Last Admin Trade Name Herminio PRN Reason Stop Dose Admin Acetaminophen 1,000 mg 06/17/20 09:56 06/17/20 11:16 Ofirmev Injection - IVPB 06/17/20 09:57 1,000 mg ONCE ONE Administration Medical Decision Making - Medical Decision Making 06/17/20 13:39 84 yo m with pmh above presents for worsening chest pain and cough. Pt got CBC, cmp, ekg, cardiac enzyme, lipase, cxr. PT cxr was clear with elevated wbc will get CT scan. CT scan negative will admit for chest pain and acs rule out. Discharge - Discharge Information Problems reviewed: Yes Clinical Impression/Diagnosis: Chest pain Condition: Good - Admission Yes - Follow up/Referral - Patient Discharge Instructions - Post Discharge Activity
[2020-06-17 11:39] LABS: BASO % 0.3 % (0-2.0); EOS % 0.7 % (0-4.5); HEMATOCRIT 38.3 % (35.4-49); HEMOGLOBIN 12.6 GM/dL (11.7-16.9); LYMPH % 15.4 % (8-40); MCH 33.8 pg (25.7-33.7); MCHC 32.9 g/dl (32.0-35.9); MEAN CELL VOLUME 102.7 fl (80-96); MEAN PLT VOLUME 9.4 fl (7.5-11.1); MONO % 7.6 % (3.8-10.2); PLATELET COUNT 163 K/MM3 (134-434); RBC 3.73 M/mm3 (4.00-5.60); WHITE BLOOD COUNT 12.7 K/mm3 (4.0-10.0)
--- NOTE | 2020-06-17 11:49 | PDOC ---
Documentation entered by Radha Mcgee SCRIBE, acting as scribe for Zach Edmond MD. Zach Edmond MD: This documentation has been prepared by the Everardo adame Lincy, SCRIBE, under my direction and personally reviewed by me in its entirety. I confirm that the documentation accurately reflects all work, treatment, procedures, and medical decision making performed by me. Attending Attestation - Resident Resident Name: Dwayne Pabon - ED Attending Attestation I have performed the following: I have examined & evaluated the patient, The case was reviewed & discussed with the resident, I agree w/resident's findings & plan, Exceptions are as noted - HPI HPI: 06/17/20 11:46 The patient is an 84-year-old male with a past medical history significant for HTN, DM, CKD, CAD s/p stents, CHF, s/p ppm who presents to the emergency department with 2 weeks of worsening chest pain and a cough. The patient is primarily Romansh speaking, daughter at bedside translating. The patient was seen at the ED on 06/08 for the same symptoms, the patient was started on Azithromycin and discharged home. The daughter reports the symptoms have been worsening since, with worsening chest pain associated with worsening cough with yellow sputum production. PCP: Dr. Patterson Historical Society Director: Dr. Brunner - Physicial Exam PE: 06/17/20 11:50 See resident exam - Medical Decision Making 06/17/20 11:50 84 M with cough, chest pain. - Labs - CXR Discharge - Discharge Information Problems reviewed: Yes Clinical Impression/Diagnosis: Dyspnea Chest pain Qualifiers: Chest pain type: unspecified Qualified Code(s): R07.9 - Chest pain, unspecified CAD (coronary artery disease) Qualifiers: Coronary Disease-Associated Artery/Lesion type: [place] artery [place] vs. transplanted heart: [place] heart Associated angina: without angina Qualified Code(s): I25.10 - Atherosclerotic heart disease of [place] coronary artery without angina pectoris Condition: Good - Follow up/Referral - Patient Discharge Instructions - Post Discharge Activity
[2020-06-17 11:50] LABS: INR 2.01 (0.83-1.09); PROTHROMBIN TIME (PATIENT) 23.9 SEC (9.7-13.0)
[2020-06-17 12:24] LABS: ALBUMIN 3.4 g/dl (3.4-5.0); BILIRUBIN,TOTAL 0.6 mg/dL (0.2-1); BLOOD UREA NITROGEN 34.3 mg/dL (7-18); CALCIUM 8.7 mg/dL (8.5-10.1); CREATININE 2.4 mg/dL (0.55-1.3); N-TERMINAL BNP 4206.6 pg/ml (5-450); POTASSIUM 4.7 mmol/L (3.5-5.1); TOT PROT 7.8 g/dl (6.4-8.2)
--- NOTE | 2020-06-17 14:58 | EKG ---
Test Reason : Blood Pressure : / mmHG Vent. Rate : 078 BPM Atrial Rate : 258 BPM P-R Int : 000 ms QRS Dur : 164 ms QT Int : 450 ms P-R-T Axes : 000 -62 109 degrees QTc Int : 513 ms Ventricular-paced rhythm WITH FREQUENT PREMATURE VENTRICULAR COMPLEXES ABNORMAL ECG WHEN COMPARED WITH ECG OF 08-JUN-2020 08:44, ELECTRONIC VENTRICULAR PACEMAKER HAS REPLACED WIDE QRS RHYTHM Confirmed by SABIHA DOWNS MD ([id number]) on 06/17/2020 2:57:46 PM Referred By: Confirmed By:SABIHA DOWNS MD
[2020-06-17 15:27] LABS: EPI CELLS 2 /uL (0-25.1); HYALINE CASTS 1 /uL (0-3.1); PH,URINE 5.5 (5.0-8.0); URINE APPEARANCE CLEAR; URINE BACTERIA 24 /uL (0-1359); URINE BILIRUBIN NEGATIVE (NEGATIVE); URINE COLOR YELLOW; URINE GLUCOSE (UA) NEGATIVE (NEGATIVE); URINE KETONE NEGATIVE (NEGATIVE); URINE LEUK ESTERASE NEGATIVE (NEGATIVE); URINE NITRITE NEGATIVE (NEGATIVE); URINE PROTEIN 2+ (NEGATIVE); URINE RBC 8 /uL (0-23.9); URINE UROBILINOGEN 0.2 mg/dL (0.2-1.0); URINE WBC 1 /uL (0-25.8)
--- NOTE | 2020-06-17 17:30 | CONSULT ---
Consult Consult Specialty:: Nephrology Reason for Consultation:: CKD - History of Present Illness Chief Complaint: cough and chest pain History of Present Illness: Pt is an 84 year old male with pmhx of ckd, hld, cad, dm, chf, gout, and anemia who presents to the ER with chest pain and cough. He has had the cough for a few weeks. He says that he gets chest pain with the cough. He is accompanied with his daughter who assisted with history. He deneis dysuria or hematuria. he deneis fevers or chills. he denies nsaid use. he says he has edema however it is improved. - History Source History Provided By: Patient - Past Medical History Cardio/Vascular: Yes: AFIB, CAD, CHF, HTN, Hyperlipdemia, Other (CHB s/p PPM NSVT) Gastrointestinal: Yes: Constipation, GERD, GI Bleed Renal/: Yes: BPH, Other (CKD) Musculoskeletal: Yes: Osteoarthritis, Other (Gout) Endocrine: Yes: Diabetes Mellitus - Past Surgical History Past Surgical History: Yes: Cholecystectomy, Permanent Pacemaker - Alcohol/Substance Use Hx Alcohol Use: No - Smoking History Smoking history: Never smoked Have you smoked in the past 12 months: No Aproximately how many cigarettes per day: 0 If you are a former smoker, when did you quit?: "long time ago" - Social History ADL: Independent History of Recent Travel: No Home Medications - Allergies Allergies/Adverse Reactions: Allergies Allergy/AdvReac Type Severity Reaction Status Date / Time No Known Drug Allergies Allergy Verified 07/28/19 16:19 - Home Medications Home Medications: Ambulatory Orders Atorvastatin Ca [Lipitor] 20 mg PO HS 12/01/15 Tamsulosin HCl 0.4 mg PO DAILY 12/01/15 Linagliptin [Tradjenta] 5 mg PO DAILY 11/04/16 Meclizine HCl [Antivert -] 25 mg PO DAILY PRN 11/04/16 Metoprolol Succinate [Toprol Xl] 50 mg PO DAILY 02/18/17 Apixaban [Eliquis -] 2.5 mg PO BID #30 tablet 04/13/17 Furosemide [Lasix -] 40 mg PO DAILY tablet 04/16/18 Lisinopril [Prinivil] 5 mg PO DAILY #30 tablet 01/14/20 Linaclotide [Linzess] 72 mcg PO DAILY 06/17/20 Family Medical History Family History: Denies Review of Systems - Review of Systems Constitutional: reports: Malaise Eyes: reports: No Symptoms HENT: reports: No Symptoms Neck: reports: No Symptoms Cardiovascular: reports: Chest Pain Respiratory: reports: Cough Gastrointestinal: reports: No Symptoms Genitourinary: reports: No Symptoms Musculoskeletal: reports: No Symptoms Integumentary: reports: No Symptoms Neurological: reports: No Symptoms Endocrine: reports: No Symptoms Hematology/Lymphatic: reports: No Symptoms Psychiatric: reports: No Symptoms Physical Exam Vital Signs: Vital Signs Temperature 98.4 F 06/17/20 15:30 Pulse Rate 69 06/17/20 15:30 Respiratory Rate 18 06/17/20 15:30 Blood Pressure 135/63 06/17/20 15:30 O2 Sat by Pulse Oximetry (%) 99 06/17/20 15:30 Constitutional: Yes: Calm Eyes: Yes: Conjunctiva Clear HENT: Yes: Atraumatic Neck: Yes: Supple Cardiovascular: Yes: S1, S2 Respiratory: Yes: CTA Bilaterally Gastrointestinal: Yes: Soft Musculoskeletal: Yes: WNL Edema: Yes Edema: LLE: 1+, RLE: 1+ Neurological: Yes: Oriented Psychiatric: Yes: Oriented Labs: CBC, BMP 06/17/20 11:00 06/17/20 11:00 Laboratory Tests 01/08/20 01/13/20 01/14/20 05:15 15:00 10:40 WBC Hgb Plt Count Creatinine 2.1 H 2.1 H 2.0 H Urine Protein Urine Blood COVID-19 (BRETT) 06/08/20 06/17/20 06/17/20 08:57 11:00 11:00 WBC 12.7 H Hgb 12.6 Plt Count 163 D Creatinine 2.5 H 2.4 H Urine Protein Urine Blood COVID-19 (BRETT) 06/17/20 06/17/20 11:45 15:00 WBC Hgb Plt Count Creatinine Urine Protein 2+ H Urine Blood 1+ H COVID-19 (BRETT) Pending Imaging - Results Cat Scan: Report Reviewed Problem List - Problems (1) Chest pain Code(s): R07.9 - CHEST PAIN, UNSPECIFIED (2) Chronic kidney disease Code(s): N18.9 - CHRONIC KIDNEY DISEASE, UNSPECIFIED Qualifiers: Assessment/Plan Impression 1. CKD 2. chest pain 3. cough 4. CHF 5. cad 6. hld 7. gout 8. chf Plan - renal function not far from baseline - resume home meds - cont chest pain workup - avoid nsaids - cont lasix at 40 mg - cont lisinopril as well
[2020-06-18] MEDS ORDERED: MECLIZINE HCL 25 MG TABLET (FP) PO PRN (00:34)
[2020-06-18] MEDS: APIXABAN 2.5 MG TABLET PO SCH ×3 (01:22→23:28)
[2020-06-18 07:11] LABS: BASO % 0.4 % (0-2.0); HEMATOCRIT 36.9 % (35.4-49); HEMOGLOBIN 12.1 GM/dL (11.7-16.9); LYMPH % 18.1 % (8-40); MCH 33.9 pg (25.7-33.7); MCHC 32.9 g/dl (32.0-35.9); MEAN CELL VOLUME 102.9 fl (80-96); MEAN PLT VOLUME 7.8 fl (7.5-11.1); MONO % 7.8 % (3.8-10.2); NEUT % 72.7 % (42.8-82.8); PLATELET COUNT 176 K/MM3 (134-434); RBC 3.58 M/mm3 (4.00-5.60); RDW 13.7 % (11.9-15.9); WHITE BLOOD COUNT 12.5 K/mm3 (4.0-10.0)
--- NOTE | 2020-06-18 07:37 | CON.CARD ---
Consult Consult Specialty:: Cardiology - History of Present Illness History of Present Illness: 84 yo male with pmh hi of CKD, HLD, CAD, H/o high degree HB s/p PPM placement 2011, replacement 2018, DM, CHF, Gout, Anemia, GIB, s/p CCY presents to the ED for chest pain and cough that started two weeks ago. Pt speaks italian so daughter translated. PT explains he has been having chest pain and cough and was seen in the ED last week. Pt was given azithromycin and dc. PT explains cough with productive yellow sputum was worsening and chest pain that has started to radiate to the back. Pt explains chest pain is sharp and pressure like and is 8/10 in pain. Pt explains it is associated with SOB and worsening with cough. 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 Pt is also on clindamycin since April 30 due to an abdominal infection in April but those symptoms have subsided. PT denies nausea, vomiting, emesis, diarrhea, lightheadedness, fevers, chills. PMH: CKD, HLD, CAD, H/o high DM, CHF, Gout, Anemia, GIB PSH: stents, pacemaker Allergies: denies Social: 125 pack year history; social alcohol drinker; denies drugs PCP: Dr. Don Patterson - Past Medical History Cardio/Vascular: Yes: AFIB, CAD, CHF, HTN, Hyperlipdemia, Other (CHB s/p PPM NSVT) Gastrointestinal: Yes: Constipation, GERD, GI Bleed Renal/: Yes: BPH, Other (CKD) Musculoskeletal: Yes: Osteoarthritis, Other (Gout) Endocrine: Yes: Diabetes Mellitus - Past Surgical History Past Surgical History: Yes: Cholecystectomy, Permanent Pacemaker - Alcohol/Substance Use Hx Alcohol Use: No - Smoking History Smoking history: Never smoked Have you smoked in the past 12 months: No Aproximately how many cigarettes per day: 0 If you are a former smoker, when did you quit?: "long time ago" - Social History ADL: Independent History of Recent Travel: No Home Medications - Allergies Allergies/Adverse Reactions: Allergies Allergy/AdvReac Type Severity Reaction Status Date / Time No Known Drug Allergies Allergy Verified 07/28/19 16:19 - Home Medications Home Medications: Ambulatory Orders Atorvastatin Ca [Lipitor] 20 mg PO HS 12/01/15 Tamsulosin HCl 0.4 mg PO DAILY 12/01/15 Linagliptin [Tradjenta] 5 mg PO DAILY 11/04/16 Meclizine HCl [Antivert -] 25 mg PO DAILY PRN 11/04/16 Metoprolol Succinate [Toprol Xl] 50 mg PO DAILY 02/18/17 Apixaban [Eliquis -] 2.5 mg PO BID #30 tablet 04/13/17 Furosemide [Lasix -] 40 mg PO DAILY tablet 04/16/18 Lisinopril [Prinivil] 5 mg PO DAILY #30 tablet 01/14/20 Linaclotide [Linzess] 72 mcg PO DAILY 06/17/20 Family Medical History Family History: Denies Review of Systems - Review of Systems Constitutional: reports: No Symptoms Eyes: reports: No Symptoms HENT: reports: No Symptoms Neck: reports: No Symptoms Cardiovascular: reports: Chest Pain Respiratory: reports: Cough Gastrointestinal: reports: No Symptoms Genitourinary: reports: No Symptoms Breasts: reports: No Symptoms Reported Musculoskeletal: reports: No Symptoms Integumentary: reports: No Symptoms Neurological: reports: No Symptoms Endocrine: reports: No Symptoms Hematology/Lymphatic: reports: No Symptoms Psychiatric: reports: No Symptoms Vital Signs: Vital Signs Temperature 97.4 F L 06/18/20 05:00 Pulse Rate 71 06/18/20 05:00 Respiratory Rate 06/18/20 05:00 Blood Pressure 140/78 06/18/20 05:00 O2 Sat by Pulse Oximetry (%) 96 06/17/20 19:53 Constitutional: Yes: Well Nourished, No Distress, Calm Eyes: Yes: WNL, Conjunctiva Clear, EOM Intact HENT: Yes: WNL, Atraumatic, Normocephalic Neck: Yes: WNL, Supple, Trachea Midline Respiratory: Yes: WNL, Regular, CTA Bilaterally Gastrointestinal: Yes: WNL, Normal Bowel Sounds Renal/: Yes: WNL Cardiovascular: Yes: WNL, Regular Rate and Rhythm Musculoskeletal: Yes: WNL Extremities: Yes: WNL Integumentary: Yes: WNL Neurological: Yes: WNL, Alert, Oriented ...Motor Strength: WNL Psychiatric: Yes: WNL, Alert, Oriented - Other Data Labs, Other Data: CBC, BMP 06/18/20 06:15 INR, PTT INR 2.01 (0.83-1.09) H 06/17/20 11:00 Troponin, BNP 06/17/20 06/18/20 11:00 01:15 Troponin I 0.07 H 0.08 H B-Natriuretic Peptide 4206.6 H Troponin, BNP 06/17/20 06/18/20 11:00 01:15 Troponin I 0.07 H 0.08 H B-Natriuretic Peptide 4206.6 H Imaging - Results Chest X-ray: Image Reviewed (no i/e) EKG: Image Reviewed (v paced) Problem List - Problems (1) Chest pain Code(s): R07.9 - CHEST PAIN, UNSPECIFIED (2) Abdominal pain Code(s): R10.9 - UNSPECIFIED ABDOMINAL PAIN (3) Acid reflux Code(s): K21.9 - GASTRO-ESOPHAGEAL REFLUX DISEASE WITHOUT ESOPHAGITIS (4) Acute exacerbation of CHF (congestive heart failure) Code(s): I50.9 - HEART FAILURE, UNSPECIFIED (5) Acute on chronic systolic and diastolic heart failure, NYHA class 1 Code(s): I50.43 - ACUTE ON CHRONIC COMBINED SYSTOLIC AND DIASTOLIC HRT FAIL (6) Acute pancreatitis Code(s): K85.90 - ACUTE PANCREATITIS WITHOUT NECROSIS OR INFECTION, UNSP Qualifiers: (7) Anemia Code(s): D64.9 - ANEMIA, UNSPECIFIED (8) Arthritis of shoulder region, right, degenerative Code(s): M19.011 - PRIMARY OSTEOARTHRITIS, RIGHT SHOULDER (9) Atypical chest pain Code(s): R07.89 - OTHER CHEST PAIN (10) BPH (benign prostatic hyperplasia) Code(s): N40.0 - BENIGN PROSTATIC HYPERPLASIA WITHOUT LOWER URINRY TRACT SYMP (11) Bronchitis Code(s): J40 - BRONCHITIS, NOT SPECIFIED ACUTE OR CHRONIC (12) CAD (coronary artery disease) Code(s): I25.10 - ATHSCL HEART DISEASE OF [place] CORONARY ARTERY W/O ANG PCTRS Qualifiers: (13) Chronic kidney disease Code(s): N18.9 - CHRONIC KIDNEY DISEASE, UNSPECIFIED Qualifiers: (14) Cough Code(s): R05 - COUGH (15) DM (diabetes mellitus), type 2 with renal complications Code(s): E11.29 - TYPE 2 DIABETES MELLITUS W OTH DIABETIC KIDNEY COMPLICATION (16) Diabetes mellitus type II, controlled Code(s): E11.9 - TYPE 2 DIABETES MELLITUS WITHOUT COMPLICATIONS Qualifiers: (17) Diarrhea Code(s): R19.7 - DIARRHEA, UNSPECIFIED (18) Dizziness Code(s): R42 - DIZZINESS AND GIDDINESS (19) Dyspnea Code(s): R06.00 - DYSPNEA, UNSPECIFIED (20) Early satiety Code(s): R68.81 - EARLY SATIETY (21) Elevated CEA Code(s): R97.0 - ELEVATED CARCINOEMBRYONIC ANTIGEN [CEA] (22) Elevated lipase Code(s): R74.8 - ABNORMAL LEVELS OF OTHER SERUM ENZYMES (23) Elevated troponin Code(s): R79.89 - OTHER SPECIFIED ABNORMAL FINDINGS OF BLOOD CHEMISTRY (24) [place] cardiac risk >20% in next 10 years Code(s): Z91.89 - OT PERSONAL RISK FACTORS, NOT ELSEWHERE CLASSIFIED (25) Gout Code(s): M10.9 - GOUT, UNSPECIFIED (26) Gout attack Code(s): M10.9 - GOUT, UNSPECIFIED (27) HLD (hyperlipidemia) Code(s): E78.5 - HYPERLIPIDEMIA, UNSPECIFIED (28) Hypertension Code(s): I10 - ESSENTIAL (PRIMARY) HYPERTENSION Qualifiers: (29) Iron deficiency anemia Code(s): D50.9 - IRON DEFICIENCY ANEMIA, UNSPECIFIED (30) Left knee pain Code(s): M25.562 - PAIN IN LEFT KNEE (31) Lower back pain Code(s): M54.5 - LOW BACK PAIN (32) NSVT (nonsustained ventricular tachycardia) Code(s): I47.2 - VENTRICULAR TACHYCARDIA (33) Osteoarthritis Code(s): M19.90 - UNSPECIFIED OSTEOARTHRITIS, UNSPECIFIED SITE (34) PAF (paroxysmal atrial fibrillation) Code(s): I48.0 - PAROXYSMAL ATRIAL FIBRILLATION (35) Pacemaker Code(s): Z95.0 - PRESENCE OF CARDIAC PACEMAKER (36) Pharyngitis Code(s): J02.9 - ACUTE PHARYNGITIS, UNSPECIFIED (37) Pneumonia Code(s): J18.9 - PNEUMONIA, UNSPECIFIED ORGANISM Qualifiers: (38) SOB (shortness of breath) Code(s): R06.02 - SHORTNESS OF BREATH (39) Stented coronary artery Code(s): Z95.5 - PRESENCE OF CORONARY ANGIOPLASTY IMPLANT AND GRAFT (40) Vertigo Code(s): R42 - DIZZINESS AND GIDDINESS (41) Volume overload Code(s): E87.70 - FLUID OVERLOAD, UNSPECIFIED Assessment/Plan 84 yo male with pmh hi of CKD, HLD, CAD, H/o high degree HB s/p PPM placement 2018, DM, CHF, Gout, Anemia, GIB, s/p CCY presents to the ED for chest pain and cough that started two weeks ago. Chronicaly elevated TNIs and BNP Discussed pt with his cardiooogist, Dr. Coburn during last admission in December 2019: Hx coronary angiogram 2013: patent coronary stent. Stress MIBI 02/2019: no myocardial ischemia. Plan; Telemetry cont Lasix cont medical rx Cont AC
[2020-06-18 07:38] LABS: BILIRUBIN,TOTAL 0.6 mg/dL (0.2-1); BLOOD UREA NITROGEN 34.6 mg/dL (7-18); CALCIUM 8.9 mg/dL (8.5-10.1); CREATININE 2.2 mg/dL (0.55-1.3); POTASSIUM 4.2 mmol/L (3.5-5.1); TOT PROT 6.8 g/dl (6.4-8.2)
[2020-06-18] MEDS: FUROSEMIDE 40 MG TABLET (FP) PO SCH (09:05)
[2020-06-18] MEDS: LISINOPRIL 5 MG TABLET (FP) PO SCH (09:05)
[2020-06-18] MEDS: TAMSULOSIN HCL 0.4 MG CAP PO SCH (09:05)
[2020-06-18] MEDS ORDERED: FUROSEMIDE 40 MG TABLET (FP) PO SCH (10:00)
--- NOTE | 2020-06-18 13:24 | CON.ID ---
Consult Consult Specialty:: infectious diseases Referred by:: dr spicer Reason for Consultation:: sob,abd pain leukocytosis - History of Present Illness Chief Complaint: abd pain radiating to the back History of Present Illness: 84 year old male with pmhx of ckd, hld, cad, dm, chf, gout, and anemia came to the ER with chest pain and cough. He has had the cough for a few weeks. He says that he gets chest pain with the cough. Mentions that he is also having abd pain radiating to the back. He deneis dysuria or hematuria. he deneis fevers or chills. he denies nsaid use. history obtained from the charts and the patient - History Source History Provided By: Patient, Medical Record Limitations to Obtaining History: Language Barrier - Past Medical History Cardio/Vascular: Yes: AFIB, CAD, CHF, HTN, Hyperlipdemia, Other (CHB s/p PPM NSVT) Gastrointestinal: Yes: Constipation, GERD, GI Bleed Renal/: Yes: BPH, Other (CKD) Musculoskeletal: Yes: Osteoarthritis, Other (Gout) Endocrine: Yes: Diabetes Mellitus - Past Surgical History Past Surgical History: Yes: Cholecystectomy, Permanent Pacemaker - Alcohol/Substance Use Hx Alcohol Use: No - Smoking History Smoking history: Never smoked Have you smoked in the past 12 months: No Aproximately how many cigarettes per day: 0 If you are a former smoker, when did you quit?: "long time ago" - Social History ADL: Independent History of Recent Travel: No Home Medications - Allergies Allergies/Adverse Reactions: Allergies Allergy/AdvReac Type Severity Reaction Status Date / Time No Known Drug Allergies Allergy Verified 07/28/19 16:19 - Home Medications Home Medications: Ambulatory Orders Atorvastatin Ca [Lipitor] 20 mg PO HS 12/01/15 Tamsulosin HCl 0.4 mg PO DAILY 12/01/15 Linagliptin [Tradjenta] 5 mg PO DAILY 11/04/16 Meclizine HCl [Antivert -] 25 mg PO DAILY PRN 11/04/16 Metoprolol Succinate [Toprol Xl] 50 mg PO DAILY 02/18/17 Apixaban [Eliquis -] 2.5 mg PO BID #30 tablet 04/13/17 Furosemide [Lasix -] 40 mg PO DAILY tablet 04/16/18 Lisinopril [Prinivil] 5 mg PO DAILY #30 tablet 01/14/20 Linaclotide [Linzess] 72 mcg PO DAILY 06/17/20 Family Medical History Family History: Denies Review of Systems - Review of Systems Constitutional: reports: Weakness Eyes: reports: No Symptoms HENT: reports: No Symptoms Neck: reports: No Symptoms Cardiovascular: reports: Chest Pain Respiratory: reports: Cough Gastrointestinal: reports: Abdominal Pain Integumentary: reports: No Symptoms Neurological: reports: No Symptoms Endocrine: reports: No Symptoms Hematology/Lymphatic: reports: No Symptoms Psychiatric: reports: No Symptoms Physical Exam Vital Signs: Vital Signs Temperature 97.4 F L 06/18/20 08:07 Pulse Rate 77 06/18/20 08:07 Respiratory Rate 20 06/18/20 08:07 Blood Pressure 134/72 06/18/20 08:07 O2 Sat by Pulse Oximetry (%) 96 06/18/20 08:07 Constitutional: Yes: Well Nourished, Calm, Mild Distress HENT: Yes: Atraumatic Neck: Yes: Supple, Trachea Midline Cardiovascular: Yes: Regular Rate and Rhythm Respiratory: Yes: Regular, CTA Bilaterally Gastrointestinal: Yes: Soft Musculoskeletal: Yes: WNL Extremities: Yes: WNL Neurological: Yes: Alert, Oriented Psychiatric: Yes: Alert, Oriented Labs: CBC, BMP 06/18/20 06:15 06/18/20 06:15 Imaging - Results Chest X-ray: Report Reviewed, Image Reviewed Cat Scan: Report Reviewed, Image Reviewed Assessment/Plan looking at patients symptoms i suspect patient has pancreatitis at this moment i would not start any abx and watch closely consider keeping npo for some time rest as per the team
--- NOTE | 2020-06-18 13:32 | PN ---
Progress Note, Physician History of Present Illness: 84 yo male with pmh hi of CKD, HLD, CAD, H/o high degree HB s/p PPM placement 2011, replacement 2018, DM, CHF, Gout, Anemia, GIB, s/p CCY presents to the ED for chest pain and cough that started two weeks ago. Pt speaks gibraltarian so daughter translated. PT explains he has been having chest pain and cough and was seen in the ED last week. Pt was given azithromycin and dc. PT explains cough wi th productive yellow sputum was worsening and chest pain that has started to radiate to the back. Pt explains chest pain is sharp and pressure like and is 8/10 in pain. Pt explains it is associated with SOB and worsening with cough. 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 Pt is also on clindamycin since April 30 due to an abdominal infection in April but those symptoms have subsided. PT denies nausea, vomiting, emesis, diarrhea, lightheadedness, fevers, chills. PMH: CKD, HLD, CAD, H/o high DM, CHF, Gout, Anemia, GIB PSH: stents, pacemaker Allergies: denies Social: 125 pack year history; social alcohol drinker; denies drugs PCP: Dr. Don Patterson - Current Medication List Current Medications: Active Medications Apixaban (Eliquis -) 2.5 mg PO BID [facility] Last Admin: 06/18/20 09:05 Dose: 2.5 mg Documented by: Atorvastatin Calcium (Lipitor -) 20 mg PO [facility] Furosemide (Lasix -) 40 mg PO DAILY [facility] Last Admin: 06/18/20 09:05 Dose: 40 mg Documented by: Lisinopril (Prinivil) 5 mg PO DAILY [facility] Last Admin: 06/18/20 09:05 Dose: 5 mg Documented by: Meclizine HCl (Antivert -) 25 mg PO DAILY PRN PRN Reason: dizziness Metoprolol Succinate (Toprol Xl -) 50 mg PO DAILY [facility] Last Admin: 06/18/20 09:05 Dose: 50 mg Documented by: Tamsulosin HCl (Flomax -) 0.4 mg PO DAILY@0830 [facility] Last Admin: 06/18/20 09:05 Dose: 0.4 mg Documented by: - Objective Vital Signs: Vital Signs Temperature 97.4 F L 06/18/20 08:07 Pulse Rate 77 08/21/20 08:07 Respiratory Rate 20 06/18/20 08:07 Blood Pressure 134/72 06/18/20 08:07 O2 Sat by Pulse Oximetry (%) 96 06/18/20 08:07 Eyes: Yes: WNL, Conjunctiva Clear, EOM Intact HENT: Yes: WNL, Atraumatic, Normocephalic Neck: Yes: WNL, Supple, Trachea Midline Cardiovascular: Yes: WNL, Regular Rate and Rhythm Respiratory: Yes: WNL, Regular, CTA Bilaterally Gastrointestinal: Yes: WNL, Normal Bowel Sounds Genitourinary: Yes: WNL Musculoskeletal: Yes: WNL Extremities: Yes: WNL Edema: No Integumentary: Yes: WNL Neurological: Yes: WNL, Alert, Oriented ...Motor Strength: WNL Psychiatric: Yes: WNL Labs: CBC, BMP 06/18/20 06:15 06/18/20 06:15 INR, PTT INR 2.01 (0.83-1.09) H 06/17/20 11:00 Problem List - Problems (1) Chest pain Code(s): R07.9 - CHEST PAIN, UNSPECIFIED (2) Abdominal pain Code(s): R10.9 - UNSPECIFIED ABDOMINAL PAIN (3) Acid reflux Code(s): K21.9 - GASTRO-ESOPHAGEAL REFLUX DISEASE WITHOUT ESOPHAGITIS (4) Acute exacerbation of CHF (congestive heart failure) Code(s): I50.9 - HEART FAILURE, UNSPECIFIED (5) Acute on chronic systolic and diastolic heart failure, NYHA class 1 Code(s): I50.43 - ACUTE ON CHRONIC COMBINED SYSTOLIC AND DIASTOLIC HRT FAIL (6) Acute pancreatitis Code(s): K85.90 - ACUTE PANCREATITIS WITHOUT NECROSIS OR INFECTION, UNSP Qualifiers: (7) Anemia Code(s): D64.9 - ANEMIA, UNSPECIFIED (8) Arthritis of shoulder region, right, degenerative Code(s): M19.011 - PRIMARY OSTEOARTHRITIS, RIGHT SHOULDER (9) Atypical chest pain Code(s): R07.89 - OTHER CHEST PAIN (10) BPH (benign prostatic hyperplasia) Code(s): N40.0 - BENIGN PROSTATIC HYPERPLASIA WITHOUT LOWER URINRY TRACT SYMP (11) Bronchitis Code(s): J40 - BRONCHITIS, NOT SPECIFIED ACUTE OR CHRONIC (12) CAD (coronary artery disease) Code(s): I25.10 - ATHSCL HEART DISEASE OF [place] CORONARY ARTERY W/O ANG PCTRS Qualifiers: (13) Chronic kidney disease Code(s): N18.9 - CHRONIC KIDNEY DISEASE, UNSPECIFIED Qualifiers: (14) Cough Code(s): R05 - COUGH (15) DM (diabetes mellitus), type 2 with renal complications Code(s): E11.29 - TYPE 2 DIABETES MELLITUS W OTH DIABETIC KIDNEY COMPLICATION (16) Diabetes mellitus type II, controlled Code(s): E11.9 - TYPE 2 DIABETES MELLITUS WITHOUT COMPLICATIONS Qualifiers: (17) Diarrhea Code(s): R19.7 - DIARRHEA, UNSPECIFIED (18) Dizziness Code(s): R42 - DIZZINESS AND GIDDINESS (19) Dyspnea Code(s): R06.00 - DYSPNEA, UNSPECIFIED (20) Early satiety Code(s): R68.81 - EARLY SATIETY (21) Elevated CEA Code(s): R97.0 - ELEVATED CARCINOEMBRYONIC ANTIGEN [CEA] (22) Elevated lipase Code(s): R74.8 - ABNORMAL LEVELS OF OTHER SERUM ENZYMES (23) Elevated troponin Code(s): R79.89 - OTHER SPECIFIED ABNORMAL FINDINGS OF BLOOD CHEMISTRY (24) [place] cardiac risk >20% in next 10 years Code(s): Z91.89 - OT PERSONAL RISK FACTORS, NOT ELSEWHERE CLASSIFIED (25) Gout Code(s): M10.9 - GOUT, UNSPECIFIED (26) Gout attack Code(s): M10.9 - GOUT, UNSPECIFIED (27) HLD (hyperlipidemia) Code(s): E78.5 - HYPERLIPIDEMIA, UNSPECIFIED (28) Hypertension Code(s): I10 - ESSENTIAL (PRIMARY) HYPERTENSION Qualifiers: (29) Iron deficiency anemia Code(s): D50.9 - IRON DEFICIENCY ANEMIA, UNSPECIFIED (30) Left knee pain Code(s): M25.562 - PAIN IN LEFT KNEE (31) Lower back pain Code(s): M54.5 - LOW BACK PAIN (32) NSVT (nonsustained ventricular tachycardia) Code(s): I47.2 - VENTRICULAR TACHYCARDIA (33) Osteoarthritis Code(s): M19.90 - UNSPECIFIED OSTEOARTHRITIS, UNSPECIFIED SITE (34) PAF (paroxysmal atrial fibrillation) Code(s): I48.0 - PAROXYSMAL ATRIAL FIBRILLATION (35) Pacemaker Code(s): Z95.0 - PRESENCE OF CARDIAC PACEMAKER (36) Pharyngitis Code(s): J02.9 - ACUTE PHARYNGITIS, UNSPECIFIED (37) Pneumonia Code(s): J18.9 - PNEUMONIA, UNSPECIFIED ORGANISM Qualifiers: (38) SOB (shortness of breath) Code(s): R06.02 - SHORTNESS OF BREATH (39) Stented coronary artery Code(s): Z95.5 - PRESENCE OF CORONARY ANGIOPLASTY IMPLANT AND GRAFT (40) Vertigo Code(s): R42 - DIZZINESS AND GIDDINESS (41) Volume overload Code(s): E87.70 - FLUID OVERLOAD, UNSPECIFIED Assessment/Plan 84 yo male with pmh hi of CKD, HLD, CAD, H/o high degree HB s/p PPM placement 2011, replacement 2018, DM, CHF, Gout, Anemia, GIB, s/p CCY presents to the ED for chest pain and cough that started two weeks ago. Chronicaly elevated TNIs and BNP Discussed pt with his cardiooogist, Dr. Coburn during last admission in December 2019: Hx coronary angiogram 2013: patent coronary stent. Stress MIBI 02/2019: no myocardial ischemia. Plan; Telemetry cont Lasix cont medical rx Cont AC
--- NOTE | 2020-06-18 14:59 | PN ---
Progress Note, Physician History of Present Illness: Pt seen and examined at bedside. He still has cough. He denies dysuria or hematuria. - Current Medication List Current Medications: Active Medications Apixaban (Eliquis -) 2.5 mg PO BID [facility] Last Admin: 06/18/20 09:05 Dose: 2.5 mg Documented by: Atorvastatin Calcium (Lipitor -) 20 mg PO [facility] Furosemide (Lasix -) 40 mg PO DAILY [facility] Last Admin: 06/18/20 09:05 Dose: 40 mg Documented by: Lisinopril (Prinivil) 5 mg PO DAILY [facility] Last Admin: 06/18/20 09:05 Dose: 5 mg Documented by: Meclizine HCl (Antivert -) 25 mg PO DAILY PRN PRN Reason: dizziness Metoprolol Succinate (Toprol Xl -) 50 mg PO DAILY [facility] Last Admin: 06/18/20 09:05 Dose: 50 mg Documented by: Tamsulosin HCl (Flomax -) 0.4 mg PO DAILY@0830 [facility] Last Admin: 06/18/20 09:05 Dose: 0.4 mg Documented by: - Objective Vital Signs: Vital Signs Temperature 98.0 F 06/18/20 14:00 Pulse Rate 69 06/18/20 14:00 Respiratory Rate 20 06/18/20 08:07 Blood Pressure 100/41 L 06/18/20 14:00 O2 Sat by Pulse Oximetry (%) 96 06/18/20 08:07 Constitutional: Yes: Calm Eyes: Yes: Conjunctiva Clear HENT: Yes: Atraumatic Cardiovascular: Yes: S1, S2 Respiratory: Yes: On Nasal O2 Gastrointestinal: Yes: Soft Genitourinary: Yes: WNL Musculoskeletal: Yes: WNL Edema: Yes Edema: LLE: 1+, RLE: 1+ Neurological: Yes: Oriented Psychiatric: Yes: Oriented Labs: CBC, BMP 06/18/20 06:15 06/18/20 06:15 INR, PTT INR 2.01 (0.83-1.09) H 06/17/20 11:00 Problem List - Problems (1) Chest pain Code(s): R07.9 - CHEST PAIN, UNSPECIFIED (2) Chronic kidney disease Code(s): N18.9 - CHRONIC KIDNEY DISEASE, UNSPECIFIED Qualifiers: Assessment/Plan Current Medications Generic Name Dose Route Start Last Admin Trade Name Freq PRN Reason Stop Dose Admin Apixaban 2.5 mg 06/18/20 00:45 06/18/20 09:05 Eliquis - PO 2.5 mg BID [facility] Administration Atorvastatin Calcium 20 mg 06/18/20 22:00 Lipitor - PO HS [facility] Furosemide 40 mg 06/18/20 10:00 06/18/20 09:05 Lasix - PO 40 mg DAILY [facility] Administration Lisinopril 5 mg 06/18/20 10:00 06/18/20 09:05 Prinivil PO 5 mg DAILY [facility] Administration Meclizine HCl 25 mg 06/18/20 00:34 Antivert - PO DAILY PRN dizziness Metoprolol Succinate 50 mg 06/18/20 10:00 06/18/20 09:05 Toprol Xl - PO 50 mg DAILY [facility] Administration Tamsulosin HCl 0.4 mg 06/18/20 08:30 06/18/20 09:05 Flomax - PO 0.4 mg DAILY@0830 [facility] Administration Impression 1. CKD 2. chest pain 3. cough 4. CHF 5. cad 6. hld 7. gout 8. chf Plan - cont lasix - cont andrez - pulm eval - cardio input appreciated - resume home meds - cont chest pain workup - avoid nsaids
--- NOTE | 2020-06-18 15:51 | HP ---
Admitting History and Physical - Past Medical History Cardiovascular: Yes: AFIB, CAD, CHF, HTN, Hyperlipdemia, Other (CHB s/p PPM NSVT) Gastrointestinal: Yes: Constipation, GERD, GI Bleed Renal/: Yes: BPH, Other (CKD) Musculoskeletal: Yes: Osteoarthritis, Other (Gout) Endocrine: Yes: Diabetes Mellitus - Past Surgical History Past Surgical History: Yes: Cholecystectomy, Permanent Pacemaker - Smoking History Smoking history: Never smoked Have you smoked in the past 12 months: No Aproximately how many cigarettes per day: 0 If you are a former smoker, when did you quit?: "long time ago" - Alcohol/Substance Use Hx Alcohol Use: No - Social History ADL: Independent History of Recent Travel: No Home Medications - Allergies Allergies/Adverse Reactions: Allergies Allergy/AdvReac Type Severity Reaction Status Date / Time No Known Drug Allergies Allergy Verified 07/28/19 16:19 - Home Medications Home Medications: Ambulatory Orders Atorvastatin Ca [Lipitor] 20 mg PO HS 12/01/15 Tamsulosin HCl 0.4 mg PO DAILY 12/01/15 Linagliptin [Tradjenta] 5 mg PO DAILY 11/04/16 Meclizine HCl [Antivert -] 25 mg PO DAILY PRN 11/04/16 Metoprolol Succinate [Toprol Xl] 50 mg PO DAILY 02/18/17 Apixaban [Eliquis -] 2.5 mg PO BID #30 tablet 04/13/17 Furosemide [Lasix -] 40 mg PO DAILY tablet 04/16/18 Lisinopril [Prinivil] 5 mg PO DAILY #30 tablet 01/14/20 Linaclotide [Linzess] 72 mcg PO DAILY 06/17/20 Family Medical History Family History: Denies Physical Examination Vital Signs: Vital Signs Temperature 98.0 F 06/18/20 14:00 Pulse Rate 69 06/18/20 14:00 Respiratory Rate 20 06/18/20 08:07 Blood Pressure 100/41 L 06/18/20 14:00 O2 Sat by Pulse Oximetry (%) 96 06/18/20 08:07 Labs: CBC, BMP 06/18/20 06:15 06/18/20 06:15
[2020-06-18] MEDS: ATORVASTATIN CA 20 MG TABLET (FP) PO SCH (23:28)
[2020-06-19 06:27] LABS: BASO % 0.2 % (0-2.0); EOS % 1.3 % (0-4.5); HEMATOCRIT 36.5 % (35.4-49); HEMOGLOBIN 12.1 GM/dL (11.7-16.9); LYMPH % 21.1 % (8-40); MCH 33.9 pg (25.7-33.7); MCHC 33.1 g/dl (32.0-35.9); MEAN CELL VOLUME 102.6 fl (80-96); MEAN PLT VOLUME 7.9 fl (7.5-11.1); MONO % 7.4 % (3.8-10.2); PLATELET COUNT 188 K/MM3 (134-434); RBC 3.56 M/mm3 (4.00-5.60)
[2020-06-19 06:42] LABS: BILIRUBIN,TOTAL 0.6 mg/dL (0.2-1); CALCIUM 8.9 mg/dL (8.5-10.1); CREATININE 2.3 mg/dL (0.55-1.3); TOT PROT 6.8 g/dl (6.4-8.2)
[2020-06-19] MEDS: TAMSULOSIN HCL 0.4 MG CAP PO SCH (08:50)
[2020-06-19] MEDS: LISINOPRIL 5 MG TABLET (FP) PO SCH (09:50)
[2020-06-19] MEDS: APIXABAN 2.5 MG TABLET PO SCH ×2 (09:50→21:16)
[2020-06-19] MEDS: FUROSEMIDE 40 MG TABLET (FP) PO SCH (09:50)
--- NOTE | 2020-06-19 11:39 | PN ---
Progress Note, Physician Chief Complaint: Cardiology for Dr. Alexandre History of Present Illness: Sharp chest pain, cough and SOB has resolved. - Current Medication List Current Medications: Active Medications Apixaban (Eliquis -) 2.5 mg PO BID [facility] Last Admin: 06/19/20 09:50 Dose: 2.5 mg Documented by: Atorvastatin Calcium (Lipitor -) 20 mg PO HS [facility] Last Admin: 06/18/20 23:28 Dose: 20 mg Documented by: Furosemide (Lasix -) 40 mg PO DAILY [facility] Last Admin: 06/19/20 09:50 Dose: 40 mg Documented by: Lisinopril (Prinivil) 5 mg PO DAILY [facility] Last Admin: 06/19/20 09:50 Dose: 5 mg Documented by: Meclizine HCl (Antivert -) 25 mg PO DAILY PRN PRN Reason: dizziness Metoprolol Succinate (Toprol Xl -) 50 mg PO DAILY [facility] Last Admin: 06/19/20 09:50 Dose: 50 mg Documented by: Tamsulosin HCl (Flomax -) 0.4 mg PO DAILY@0830 [facility] Last Admin: 06/19/20 08:50 Dose: 0.4 mg Documented by: - Objective Vital Signs: Vital Signs Temperature 97.1 F L 06/19/20 07:12 Pulse Rate 70 06/19/20 07:12 Respiratory Rate 18 06/19/20 07:12 Blood Pressure 133/69 06/19/20 07:12 O2 Sat by Pulse Oximetry (%) 96 06/18/20 08:07 Constitutional: Yes: No Distress, Calm, Thin Neck: Yes: Supple Cardiovascular: Yes: Regular Rate and Rhythm Respiratory: Yes: Regular, Diminished, On Nasal O2 Gastrointestinal: Yes: Soft, Hypoactive Bowel Sounds Edema: No Labs: CBC, BMP 06/19/20 05:44 06/19/20 05:44 INR, PTT INR 2.01 (0.83-1.09) H 06/17/20 11:00 - ....Imaging EKG: Report Reviewed (Tele: NSR @ 70) Problem List - Problems (1) Chest pain Code(s): R07.9 - CHEST PAIN, UNSPECIFIED Qualifiers: Chest pain type: unspecified Qualified Code(s): R07.9 - Chest pain, un specified (2) Lung nodule seen on imaging study Code(s): R91.1 - SOLITARY PULMONARY NODULE (3) Acute on chronic systolic and diastolic heart failure, NYHA class 1 Code(s): I50.43 - ACUTE ON CHRONIC COMBINED SYSTOLIC AND DIASTOLIC HRT FAIL (4) CAD (coronary artery disease) Code(s): I25.10 - ATHSCL HEART DISEASE OF [place] CORONARY ARTERY W/O ANG PCTRS Qualifiers: Coronary Disease-Associated Artery/Lesion type: [place] artery [place] vs. transplanted heart: [place] heart Associated angina: without angina Qualified Code(s): I25.10 - Atherosclerotic heart disease of [place] coronary artery without angina pectoris (5) Chronic kidney disease Code(s): N18.9 - CHRONIC KIDNEY DISEASE, UNSPECIFIED Qualifiers: Chronic kidney disease stage: stage 3 (moderate) Qualified Code(s): N18.3 - Chronic kidney disease, stage 3 (moderate) (6) DM (diabetes mellitus), type 2 with renal complications Code(s): E11.29 - TYPE 2 DIABETES MELLITUS W OTH DIABETIC KIDNEY COMPLICATION Qualifiers: Diabetes mellitus continuous churn buttermaker insulin use: without continuous churn buttermaker use Chronic kidney disease stage: stage 3 (moderate) (7) Elevated lipase Code(s): R74.8 - ABNORMAL LEVELS OF OTHER SERUM ENZYMES (8) HLD (hyperlipidemia) Code(s): E78.5 - HYPERLIPIDEMIA, UNSPECIFIED Qualifiers: Hyperlipidemia type: pure hypercholesterolemia Qualified Code(s): E78.00 - Pure hypercholesterolemia, unspecified; E78.0 - Pure hypercholesterolemia (9) Hypertension Code(s): I10 - ESSENTIAL (PRIMARY) HYPERTENSION Qualifiers: Hypertension type: essential hypertension (10) PAF (paroxysmal atrial fibrillation) Code(s): I48.0 - PAROXYSMAL ATRIAL FIBRILLATION (11) Pacemaker Code(s): Z95.0 - PRESENCE OF CARDIAC PACEMAKER (12) Stented coronary artery Code(s): Z95.5 - PRESENCE OF CORONARY ANGIOPLASTY IMPLANT AND GRAFT Assessment/Plan Stress MIBI 02/2019: no myocardial ischemia. Assessment/Plan 1. Chest pain 2. Chronic diastolic CHF 3. PAF->SR on eliquis 4. CAD s/p stent with demand ischemia, Hx coronary angiogram 2014: patent coronary stent. 5. CKD 6. HLD 7. 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 Type 2 DM 10. Gout 11. GIB 12. 6.5 MM RLL nodule Plan: 1. Trops plateaued 2. Lasix 40 qd with monitor diuretic response, renal fxn and electrolytes 3. Continue Eliquis 2.5 bid, Lipitor 20 qd, lisinopril 5 qd, Toprol XL [address] surveillance of pulm nodule in 6 months per pulmonary, consider abd/pelvic CT with pancreas protocol to evaluate further 5. Observe off abx per ID
--- NOTE | 2020-06-19 11:41 | CON.PULM ---
Consult Consult Specialty:: PULMONARY Referred by:: TROY Reason for Consultation:: COUGH/LUNG NODULES - History of Present Illness Chief Complaint: CHEST PAIN/COUGH History of Present Illness: Pt is an 84 year old male with pmhx of ckd, hld, cad, dm, chf, gout, and anemia who presents to the ER with chest pain and cough. He has had the cough for a few weeks. He says that he gets chest pain with the cough. He is accompanied with his daughter who assisted with history. He deneis dysuria or hematuria. he deneis fevers or chills. he denies nsaid use. he says he has edema however it is improved. 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: No: Alzheimer's Cardio/Vascular: Yes: AFIB, CAD, CHF, HTN, Hyperlipdemia, Other (CHB s/p PPM NSVT) Gastrointestinal: Yes: Constipation, GERD, GI Bleed Renal/: Yes: BPH, Other (CKD) Musculoskeletal: Yes: Osteoarthritis, Other (Gout) Endocrine: Yes: Diabetes Mellitus - Past Surgical History Past Surgical History: Yes: Cholecystectomy, Permanent Pacemaker - Alcohol/Substance Use Hx Alcohol Use: No - Smoking History Smoking history: Never smoked Have you smoked in the past 12 months: No Aproximately how many cigarettes per day: 0 If you are a former smoker, when did you quit?: "long time ago" - Social History ADL: Independent History of Recent Travel: No Home Medications - Allergies Allergies/Adverse Reactions: Allergies Allergy/AdvReac Type Severity Reaction Status Date / Time No Known Drug Allergies Allergy Verified 07/28/19 16:19 - Home Medications Home Medications: Ambulatory Orders Atorvastatin Ca [Lipitor] 20 mg PO HS 12/01/15 Tamsulosin HCl 0.4 mg PO DAILY 12/01/15 Linagliptin [Tradjenta] 5 mg PO DAILY 11/04/16 Meclizine HCl [Antivert -] 25 mg PO DAILY PRN 11/04/16 Metoprolol Succinate [Toprol Xl] 50 mg PO DAILY 02/18/17 Apixaban [Eliquis -] 2.5 mg PO BID #30 tablet 04/13/17 Furosemide [Lasix -] 40 mg PO DAILY tablet 04/16/18 Lisinopril [Prinivil] 5 mg PO DAILY #30 tablet 01/14/20 Linaclotide [Linzess] 72 mcg PO DAILY 06/17/20 Family Medical History Family History: Unable to Obtain, Denies Review of Systems - Review of Systems Constitutional: reports: Lethargy Eyes: denies: Blurred Vision HENT: denies: Difficult Swallowing Neck: denies: Decreased ROM Cardiovascular: reports: Chest Pain Respiratory: reports: Cough, Exercise Intolerance, SOB, SOB on Exertion. denies: Hemoptysis, Wheezing Gastrointestinal: denies: Abdominal Pain Genitourinary: denies: Burning Physical Exam Vital Sings: Vital Signs Temperature 97.1 F L 06/19/20 07:12 Pulse Rate 70 06/19/20 07:12 Respiratory Rate 18 06/19/20 07:12 Blood Pressure 133/69 06/19/20 07:12 O2 Sat by Pulse Oximetry (%) 96 06/18/20 08:07 Constitutional: Yes: Calm Eyes: Yes: EOM Intact HENT: Yes: Normocephalic Neck: Yes: Trachea Midline Cardiovascular: Yes: S1, S2, Other (PACED) Respiratory: Yes: Diminished Gastrointestinal: Yes: Normal Bowel Sounds Edema: No Labs: CBC, BMP 06/19/20 05:44 06/19/20 05:44 Imaging - Results Chest X-ray: Report Reviewed, Image Reviewed Cat Scan: Report Reviewed, Image Reviewed Problem List - Problems (1) Lung nodule seen on imaging study Code(s): R91.1 - SOLITARY PULMONARY NODULE (2) Chest pain Code(s): R07.9 - CHEST PAIN, UNSPECIFIED (3) Acute on chronic systolic and diastolic heart failure, NYHA class 1 Code(s): I50.43 - ACUTE ON CHRONIC COMBINED SYSTOLIC AND DIASTOLIC HRT FAIL (4) Anemia Code(s): D64.9 - ANEMIA, UNSPECIFIED (5) BPH (benign prostatic hyperplasia) Code(s): N40.0 - BENIGN PROSTATIC HYPERPLASIA WITHOUT LOWER URINRY TRACT SYMP (6) CAD (coronary artery disease) Code(s): I25.10 - ATHSCL HEART DISEASE OF [place] CORONARY ARTERY W/O ANG PCTRS Qualifiers: (7) Cough Code(s): R05 - COUGH (8) HLD (hyperlipidemia) Code(s): E78.5 - HYPERLIPIDEMIA, UNSPECIFIED (9) Hypertension Code(s): I10 - ESSENTIAL (PRIMARY) HYPERTENSION Qualifiers: Assessment/Plan LUNG NODULE NOTED ON CXR 6.5 MM RLL WILL REPEAT CT CHEST 6 MONTHS OUTPATIENT CARDIO NOTE REVIEWED WORKING DX PER ID IS ACUTE PANCREATITIS CONSIDER GI EVAL. Chas BACON MD
--- NOTE | 2020-06-19 13:54 | PN ---
Progress Note, Physician History of Present Illness: c/o of chest pain rest feels better no cough abd pain better - Current Medication List Current Medications: Active Medications Apixaban (Eliquis -) 2.5 mg PO BID [facility] Last Admin: 06/19/20 09:50 Dose: 2.5 mg Documented by: Atorvastatin Calcium (Lipitor -) 20 mg PO HS [facility] Last Admin: 06/18/20 23:28 Dose: 20 mg Documented by: Furosemide (Lasix -) 40 mg PO DAILY [facility] Last Admin: 06/19/20 09:50 Dose: 40 mg Documented by: Lisinopril (Prinivil) 5 mg PO DAILY [facility] Last Admin: 06/19/20 09:50 Dose: 5 mg Documented by: Meclizine HCl (Antivert -) 25 mg PO DAILY PRN PRN Reason: dizziness Metoprolol Succinate (Toprol Xl -) 50 mg PO DAILY [facility] Last Admin: 06/19/20 09:50 Dose: 50 mg Documented by: Tamsulosin HCl (Flomax -) 0.4 mg PO DAILY@0830 [facility] Last Admin: 06/19/20 08:50 Dose: 0.4 mg Documented by: - Objective Vital Signs: Vital Signs Temperature 97.1 F L 06/19/20 07:12 Pulse Rate 70 06/19/20 07:12 Respiratory Rate 18 06/19/20 07:12 Blood Pressure 133/69 06/19/20 07:12 O2 Sat by Pulse Oximetry (%) 96 06/18/20 08:07 Constitutional: Yes: Calm, Mild Distress Cardiovascular: Yes: S1, S2 Respiratory: Yes: Regular, CTA Bilaterally Gastrointestinal: Yes: Normal Bowel Sounds, Soft Neurological: Yes: Alert, Oriented Psychiatric: Yes: Alert, Oriented Labs: CBC, BMP 06/19/20 05:44 06/19/20 05:44 INR, PTT INR 2.01 (0.83-1.09) H 06/17/20 11:00 Assessment/Plan Problem List - Problems (1) Lung nodule seen on imaging study Code(s): R91.1 - SOLITARY PULMONARY NODULE (2) Chest pain Code(s): R07.9 - CHEST PAIN, UNSPECIFIED (3) Acute on chronic systolic and diastolic heart failure, NYHA class 1 Code(s): I50.43 - ACUTE ON CHRONIC COMBINED SYSTOLIC AND DIASTOLIC HRT FAIL (4) Anemia Code(s): D64.9 - ANEMIA, UNSPECIFIED (5) BPH (benign prostatic hyperplasia) Code(s): N40.0 - BENIGN PROSTATIC HYPERPLASIA WITHOUT LOWER URINRY TRACT SYMP (6) CAD (coronary artery disease) Code(s): I25.10 - ATHSCL HEART DISEASE OF [place] CORONARY ARTERY W/O ANG PCTRS Qualifiers: (7) Cough Code(s): R05 - COUGH (8) HLD (hyperlipidemia) Code(s): E78.5 - HYPERLIPIDEMIA, UNSPECIFIED (9) Hypertension Code(s): I10 - ESSENTIAL (PRIMARY) HYPERTENSION Qualifiers: pancreatitis plan continue current mgmt continue to monitor
--- NOTE | 2020-06-19 17:45 | PN ---
Progress Note (short form) - Note Progress Note: Problems 1. CKD 2. chest pain 3. cough 4. CHF 5. cad 6. hld 7. gout 8. chf Active Medications Apixaban (Eliquis -) 2.5 mg PO BID [facility] Last Admin: 06/19/20 09:50 Dose: 2.5 mg Documented by: Atorvastatin Calcium (Lipitor -) 20 mg PO HS [facility] Last Admin: 06/18/20 23:28 Dose: 20 mg Documented by: Furosemide (Lasix -) 40 mg PO DAILY [facility] Last Admin: 06/19/20 09:50 Dose: 40 mg Documented by: Lisinopril (Prinivil) 5 mg PO DAILY [facility] Last Admin: 06/19/20 09:50 Dose: 5 mg Documented by: Meclizine HCl (Antivert -) 25 mg PO DAILY PRN PRN Reason: dizziness Metoprolol Succinate (Toprol Xl -) 50 mg PO DAILY [facility] Last Admin: 06/19/20 09:50 Dose: 50 mg Documented by: Tamsulosin HCl (Flomax -) 0.4 mg PO DAILY@0830 [facility] Last Admin: 06/19/20 08:50 Dose: 0.4 mg Documented by: Last Vital Signs Temp Pulse Resp BP Pulse Ox 97.8 F 72 18 137/72 98 06/19/20 09:00 06/19/20 09:00 06/19/20 09:00 06/19/20 09:00 06/19/20 09:00 Constitutional: Yes: No Distress, Calm, Thin Neck: Yes: Supple Cardiovascular: Yes: Regular Rate and Rhythm Respiratory: Yes: Regular, Diminished, On Nasal O2 Gastrointestinal: Yes: Soft, Hypoactive Bowel Sounds Edema: No CBC, BMP 06/19/20 05:44 06/19/20 05:44 IMP- CKD Chest pain being worked up Plan follow renal function labs
--- NOTE | 2020-06-19 20:41 | PN ---
Progress Note, Physician - Current Medication List Current Medications: Active Medications Apixaban (Eliquis -) 2.5 mg PO BID [facility] Last Admin: 06/19/20 09:50 Dose: 2.5 mg Documented by: Atorvastatin Calcium (Lipitor -) 20 mg PO HS [facility] Last Admin: 06/18/20 23:28 Dose: 20 mg Documented by: Furosemide (Lasix -) 40 mg PO DAILY [facility] Last Admin: 06/19/20 09:50 Dose: 40 mg Documented by: Lisinopril (Prinivil) 5 mg PO DAILY [facility] Last Admin: 06/19/20 09:50 Dose: 5 mg Documented by: Meclizine HCl (Antivert -) 25 mg PO DAILY PRN PRN Reason: dizziness Metoprolol Succinate (Toprol Xl -) 50 mg PO DAILY [facility] Last Admin: 06/19/20 09:50 Dose: 50 mg Documented by: Tamsulosin HCl (Flomax -) 0.4 mg PO DAILY@0830 [facility] Last Admin: 06/19/20 08:50 Dose: 0.4 mg Documented by: - Objective Vital Signs: Vital Signs Temperature 97.5 F L 06/19/20 18:00 Pulse Rate 70 06/19/20 18:00 Respiratory Rate 20 06/19/20 18:00 Blood Pressure 124/59 L 06/19/20 18:00 O2 Sat by Pulse Oximetry (%) 98 06/19/20 09:00 Labs: CBC, BMP 06/19/20 05:44 06/19/20 05:44 INR, PTT INR 2.01 (0.83-1.09) H 06/17/20 11:00
[2020-06-19] MEDS: ATORVASTATIN CA 20 MG TABLET (FP) PO SCH (21:16)
[2020-06-20 06:57] LABS: BASO % 0.3 % (0-2.0); EOS % 1.5 % (0-4.5); HEMATOCRIT 35.9 % (35.4-49); HEMOGLOBIN 11.9 GM/dL (11.7-16.9); LYMPH % 23.1 % (8-40); MCH 33.7 pg (25.7-33.7); MEAN PLT VOLUME 7.7 fl (7.5-11.1); MONO % 8.5 % (3.8-10.2); NEUT % 66.6 % (42.8-82.8); PLATELET COUNT 191 K/MM3 (134-434); RBC 3.52 M/mm3 (4.00-5.60); RDW 13.6 % (11.9-15.9)
[2020-06-20 07:32] LABS: ALBUMIN 2.8 g/dl (3.4-5.0); BILIRUBIN,TOTAL 0.5 mg/dL (0.2-1); BLOOD UREA NITROGEN 39.6 mg/dL (7-18); CALCIUM 8.6 mg/dL (8.5-10.1); CREATININE 2.7 mg/dL (0.55-1.3)
[2020-06-20 07:40] LABS: TOT PROT 6.6 g/dl (6.4-8.2)
[2020-06-20] MEDS: APIXABAN 2.5 MG TABLET PO SCH ×2 (11:00→21:07)
[2020-06-20] MEDS: TAMSULOSIN HCL 0.4 MG CAP PO SCH (11:00)
[2020-06-20] MEDS: FUROSEMIDE 40 MG TABLET (FP) PO SCH (11:00)
[2020-06-20] MEDS: LISINOPRIL 5 MG TABLET (FP) PO SCH (11:01)
--- NOTE | 2020-06-20 11:30 | PN ---
Progress Note (short form) - Note Progress Note: PULMONARY NO ACUTE EVENTS OVERNIGHT SPO2 98% ON R/A VSS/AFEBRILE Constitutional: Yes: Calm Eyes: Yes: EOM Intact HENT: Yes: Normocephalic Neck: Yes: Trachea Midline Cardiovascular: Yes: S1, S2, Other (PACED) Respiratory: Yes: Diminished Gastrointestinal: Yes: Normal Bowel Sounds Edema: No Labs: NOTED Chest X-ray: Report Reviewed, Image Reviewed Cat Scan: Report Reviewed, Image Reviewed Problem List - Problems (1) Lung nodule seen on imaging study Code(s): R91.1 - SOLITARY PULMONARY NODULE (2) Chest pain Code(s): R07.9 - CHEST PAIN, UNSPECIFIED (3) Acute on chronic systolic and diastolic heart failure, NYHA class 1 Code(s): I50.43 - ACUTE ON CHRONIC COMBINED SYSTOLIC AND DIASTOLIC HRT FAIL (4) Anemia Code(s): D64.9 - ANEMIA, UNSPECIFIED (5) BPH (benign prostatic hyperplasia) Code(s): N40.0 - BENIGN PROSTATIC HYPERPLASIA WITHOUT LOWER URINRY TRACT SYMP (6) CAD (coronary artery disease) Code(s): I25.10 - ATHSCL HEART DISEASE OF [place] CORONARY ARTERY W/O ANG PCTRS Qualifiers: (7) Cough Code(s): R05 - COUGH (8) HLD (hyperlipidemia) Code(s): E78.5 - HYPERLIPIDEMIA, UNSPECIFIED (9) Hypertension Code(s): I10 - ESSENTIAL (PRIMARY) HYPERTENSION Qualifiers: Assessment/Plan LUNG NODULE NOTED ON CXR 6.5 MM RLL WILL REPEAT CT CHEST 6 MONTHS OUTPATIENT CARDIO NOTE REVIEWED ACUTE PANCREATITIS IS NOT SUPPORTED ON CT AMI BACON MD Problem List - Problems (1) Lung nodule seen on imaging study Code(s): R91.1 - SOLITARY PULMONARY NODULE (2) Chest pain Code(s): R07.9 - CHEST PAIN, UNSPECIFIED Qualifiers: Chest pain type: unspecified Qualified Code(s): R07.9 - Chest pain, unspecified (3) Acute on chronic systolic and diastolic heart failure, NYHA class 1 Code(s): I50.43 - ACUTE ON CHRONIC COMBINED SYSTOLIC AND DIASTOLIC HRT FAIL (4) Anemia Code(s): D64.9 - ANEMIA, UNSPECIFIED (5) BPH (benign prostatic hyperplasia) Code(s): N40.0 - BENIGN PROSTATIC HYPERPLASIA WITHOUT LOWER URINRY TRACT SYMP (6) CAD (coronary artery disease) Code(s): I25.10 - ATHSCL HEART DISEASE OF [place] CORONARY ARTERY W/O ANG PCTRS Qualifiers: Coronary Disease-Associated Artery/Lesion type: [place] artery [place] vs. transplanted heart: [place] heart Associated angina: without angina Qualified Code(s): I25.10 - Atherosclerotic heart disease of [place] coronary artery wit hout angina pectoris (7) Cough Code(s): R05 - COUGH (8) HLD (hyperlipidemia) Code(s): E78.5 - HYPERLIPIDEMIA, UNSPECIFIED Qualifiers: Hyperlipidemia type: pure hypercholesterolemia Qualified Code(s): E78.00 - Pure hypercholesterolemia, unspecified; E78.0 - Pure hypercholesterolemia (9) Hypertension Code(s): I10 - ESSENTIAL (PRIMARY) HYPERTENSION Qualifiers: Hypertension type: essential hypertension
--- NOTE | 2020-06-20 12:23 | PN ---
Progress Note, Physician Chief Complaint: Cardiology for Dr. Alexandre History of Present Illness: Sharp chest pain, cough and SOB has resolved. - Current Medication List Current Medications: Active Medications Apixaban (Eliquis -) 2.5 mg PO BID [facility] Last Admin: 06/19/20 21:16 Dose: 2.5 mg Documented by: Atorvastatin Calcium (Lipitor -) 20 mg PO HS [facility] Last Admin: 06/19/20 21:16 Dose: 20 mg Documented by: Furosemide (Lasix -) 40 mg PO DAILY [facility] Last Admin: 06/19/20 09:50 Dose: 40 mg Documented by: Lisinopril (Prinivil) 5 mg PO DAILY [facility] Last Admin: 06/19/20 09:50 Dose: 5 mg Documented by: Meclizine HCl (Antivert -) 25 mg PO DAILY PRN PRN Reason: dizziness Metoprolol Succinate (Toprol Xl -) 50 mg PO DAILY [facility] Last Admin: 06/19/20 09:50 Dose: 50 mg Documented by: Tamsulosin HCl (Flomax -) 0.4 mg PO DAILY@0830 [facility] Last Admin: 06/19/20 08:50 Dose: 0.4 mg Documented by: - Objective Vital Signs: Vital Signs Temperature 98 F 06/20/20 08:00 Pulse Rate 72 06/20/20 08:00 Respiratory Rate 18 06/20/20 08:00 Blood Pressure 119/74 06/20/20 08:00 O2 Sat by Pulse Oximetry (%) 98 06/20/20 08:00 Constitutional: Yes: No Distress, Calm Neck: Yes: Supple Cardiovascular: Yes: Regular Rate and Rhythm Respiratory: Yes: Regular, CTA Bilaterally Gastrointestinal: Yes: Normal Bowel Sounds, Soft Edema: No Labs: CBC, BMP 06/20/20 05:52 06/20/20 05:52 INR, PTT INR 2.01 (0.83-1.09) H 06/17/20 11:00 - ....Imaging EKG: Report Reviewed (Tele: V-paced) Problem List - Problems (1) Chest pain Code(s): R07.9 - CHEST PAIN, UNSPECIFIED Qualifiers: Chest pain type: unspecified Qualified Code(s): R07.9 - Chest pain, unspecified (2) Lung nodule seen on imaging study Code(s): R91.1 - SOLITARY PULMONARY NODULE (3) Acute on chronic systolic and diastolic heart failure, NYHA class 1 Code(s): I50.43 - ACUTE ON CHRONIC COMBINED SYSTOLIC AND DIASTOLIC HRT FAIL (4) CAD (coronary artery disease) Code(s): I25.10 - ATHSCL HEART DISEASE OF [place] CORONARY ARTERY W/O ANG PCTRS Qualifiers: Coronary Disease-Associated Artery/Lesion type: [place] artery [place] vs. transplanted heart: [place] heart Associated angina: without angina Qualified Code(s): I25.10 - Atherosclerotic heart disease of [place] coronary artery without angina pectoris (5) Chronic kidney disease Code(s): N18.9 - CHRONIC KIDNEY DISEASE, UNSPECIFIED Qualifiers: Chronic kidney disease stage: stage 3 (moderate) Qualified Code(s): N18.3 - Chronic kidney disease, stage 3 (moderate) (6) DM (diabetes mellitus), type 2 with renal complications Code(s): E11.29 - TYPE 2 DIABETES MELLITUS W OTH DIABETIC KIDNEY COMPLICATION Qualifiers: Diabetes mellitus detention insulin use: without manager terminal use Chronic kidney disease stage: stage 3 (moderate) (7) Elevated lipase Code(s): R74.8 - ABNORMAL LEVELS OF OTHER SERUM ENZYMES (8) HLD (hyperlipidemia) Code(s): E78.5 - HYPERLIPIDEMIA, UNSPECIFIED Qualifiers: Hyperlipidemia type: pure hypercholesterolemia Qualified Code(s): E78.00 - Pure hypercholesterolemia, unspecified; E78.0 - Pure hypercholesterolemia (9) Hypertension Code(s): I10 - ESSENTIAL (PRIMARY) HYPERTENSION Qualifiers: Hypertension type: essential hypertension Qualified Code(s): I10 - Ess ential (primary) hypertension (10) PAF (paroxysmal atrial fibrillation) Code(s): I48.0 - PAROXYSMAL ATRIAL FIBRILLATION (11) Pacemaker Code(s): Z95.0 - PRESENCE OF CARDIAC PACEMAKER (12) Stented coronary artery Code(s): Z95.5 - PRESENCE OF CORONARY ANGIOPLASTY IMPLANT AND GRAFT Assessment/Plan 06/19/2020 Abd & pelvic CT: No pancreatitis, + fecal retention Stress MIBI 02/2019: no myocardial ischemia. Assessment/Plan 1. Chest pain 2. Chronic diastolic CHF 3. PAF->SR on eliquis 4. CAD s/p stent with demand ischemia, Hx coronary angiogram 2013: patent coronary stent. 5. CKD 6. HLD 7. 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 Type 2 DM 10. Gout 11. GIB 12. 6.5 MM RLL nodule Plan: 1. Trops plateaued 2. Lasix 40 qd with monitor diuretic response, renal fxn and electrolytes 3. Continue Eliquis 2.5 bid, Lipitor 20 qd, lisinopril 5 qd, Toprol XL 50 qd, recommend bowel regimen 4. Chest CT surveillance of pulm nodule in 6 months per pulmonary 5. Observe off abx per ID
--- NOTE | 2020-06-20 12:46 | PN ---
Progress Note, Physician History of Present Illness: no ac events overnight - Current Medication List Current Medications: Active Medications Apixaban (Eliquis -) 2.5 mg PO BID [facility] Last Admin: 06/19/20 21:16 Dose: 2.5 mg Documented by: Atorvastatin Calcium (Lipitor -) 20 mg PO HS [facility] Last Admin: 06/19/20 21:16 Dose: 20 mg Documented by: Furosemide (Lasix -) 40 mg PO DAILY [facility] Last Admin: 06/19/20 09:50 Dose: 40 mg Documented by: Lisinopril (Prinivil) 5 mg PO DAILY [facility] Last Admin: 06/19/20 09:50 Dose: 5 mg Documented by: Meclizine HCl (Antivert -) 25 mg PO DAILY PRN PRN Reason: dizziness Metoprolol Succinate (Toprol Xl -) 50 mg PO DAILY [facility] Last Admin: 06/19/20 09:50 Dose: 50 mg Documented by: Tamsulosin HCl (Flomax -) 0.4 mg PO DAILY@0830 [facility] Last Admin: 06/19/20 08:50 Dose: 0.4 mg Documented by: - Objective Vital Signs: Vital Signs Temperature 98 F 06/20/20 08:00 Pulse Rate 72 06/20/20 08:00 Respiratory Rate 18 06/20/20 08:00 Blood Pressure 119/74 06/20/20 08:00 O2 Sat by Pulse Oximetry (%) 98 06/20/20 08:00 Constitutional: Yes: No Distress, Calm Cardiovascular: Yes: S1, S2 Respiratory: Yes: Regular, CTA Bilaterally Gastrointestinal: Yes: Normal Bowel Sounds, Soft Musculoskeletal: Yes: WNL Extremities: Yes: WNL Neurological: Yes: Alert, Oriented Psychiatric: Yes: Alert, Oriented Labs: CBC, BMP 06/20/20 05:52 06/20/20 05:52 INR, PTT INR 2.01 (0.83-1.09) H 06/17/20 11:00 Assessment/Plan Problem List - Problems (1) Lung nodule seen on imaging study Code(s): R91.1 - SOLITARY PULMONARY NODULE (2) Chest pain Code(s): R07.9 - CHEST PAIN, UNSPECIFIED (3) Acute on chronic systolic and diastolic heart failure, NYHA class 1 Code(s): I50.43 - ACUTE ON CHRONIC COMBINED SYSTOLIC AND DIASTOLIC HRT FAIL (4) Anemia Code(s): D64.9 - ANEMIA, UNSPECIFIED (5) BPH (benign prostatic hyperplasia) Code(s): N40.0 - BENIGN PROSTATIC HYPERPLASIA WITHOUT LOWER URINRY TRACT SYMP (6) CAD (coronary artery disease) Code(s): I25.10 - ATHSCL HEART DISEASE OF [place] CORONARY ARTERY W/O ANG PCTRS Qualifiers: (7) Cough Code(s): R05 - COUGH (8) HLD (hyperlipidemia) Code(s): E78.5 - HYPERLIPIDEMIA, UNSPECIFIED (9) Hypertension Code(s): I10 - ESSENTIAL (PRIMARY) HYPERTENSION Qualifiers: pancreatitis lipase has increased plan continue current mgmt monitor pancreatic enzymes ct scan result noted cause of pancreatic insult
--- NOTE | 2020-06-20 18:02 | PN ---
Progress Note (short form) - Note Progress Note: Problems 1. CKD 2. chest pain 3. cough 4. CHF 5. cad 6. hld 7. gout 8. chf Active Medications Apixaban (Eliquis -) 2.5 mg PO BID [facility] Last Admin: 06/20/20 11:00 Dose: 2.5 mg Documented by: Atorvastatin Calcium (Lipitor -) 20 mg PO HS [facility] Last Admin: 06/19/20 21:16 Dose: 20 mg Documented by: Furosemide (Lasix -) 40 mg PO DAILY [facility] Last Admin: 06/20/20 11:00 Dose: 40 mg Documented by: Lisinopril (Prinivil) 5 mg PO DAILY [facility] Last Admin: 06/20/20 11:01 Dose: 5 mg Documented by: Meclizine HCl (Antivert -) 25 mg PO DAILY PRN PRN Reason: dizziness Metoprolol Succinate (Toprol Xl -) 50 mg PO DAILY [facility] Last Admin: 06/20/20 11:01 Dose: 50 mg Documented by: Tamsulosin HCl (Flomax -) 0.4 mg PO DAILY@0830 [facility] Last Admin: 06/20/20 11:00 Dose: 0.4 mg Documented by: Last Vital Signs Temp Pulse Resp BP Pulse Ox 97.7 F 71 18 111/61 98 06/20/20 14:33 06/20/20 14:33 06/20/20 14:33 06/20/20 14:33 06/20/20 08:00 Constitutional: Yes: Calm Eyes: Yes: EOM Intact HENT: Yes: Normocephalic Neck: Yes: Trachea Midline Cardiovascular: Yes: S1, S2, Other (PACED) Respiratory: Yes: Diminished Gastrointestinal: Yes: Normal Bowel Sounds Edema: No CBC, BMP 06/19/20 05:44 06/19/20 05:44 IMP- CKD Chest pain being worked up Plan follow renal function labs
[2020-06-20] MEDS: ATORVASTATIN CA 20 MG TABLET (FP) PO SCH (21:07)
--- NOTE | 2020-06-20 22:23 | PN ---
Progress Note, Physician History of Present Illness: Pt denies any chest pain - Current Medication List Current Medications: Active Medications Apixaban (Eliquis -) 2.5 mg PO BID [facility] Last Admin: 06/20/20 21:07 Dose: 2.5 mg Documented by: Atorvastatin Calcium (Lipitor -) 20 mg PO HS [facility] Last Admin: 06/20/20 21:07 Dose: 20 mg Documented by: Furosemide (Lasix -) 40 mg PO DAILY [facility] Last Admin: 06/20/20 11:00 Dose: 40 mg Documented by: Lisinopril (Prinivil) 5 mg PO DAILY [facility] Last Admin: 06/20/20 11:01 Dose: 5 mg Documented by: Meclizine HCl (Antivert -) 25 mg PO DAILY PRN PRN Reason: dizziness Metoprolol Succinate (Toprol Xl -) 50 mg PO DAILY [facility] Last Admin: 06/20/20 11:01 Dose: 50 mg Documented by: Tamsulosin HCl (Flomax -) 0.4 mg PO DAILY@0830 [facility] Last Admin: 06/20/20 11:00 Dose: 0.4 mg Documented by: - Objective Vital Signs: Vital Signs Temperature 98.1 F 06/20/20 21:50 Pulse Rate 70 06/20/20 21:50 Respiratory Rate 20 06/20/20 21:50 Blood Pressure 144/79 06/20/20 21:50 O2 Sat by Pulse Oximetry (%) 95 06/20/20 21:50 Cardiovascular: Yes: WNL, Regular Rate and Rhythm Respiratory: Yes: WNL, Regular, CTA Bilaterally Gastrointestinal: Yes: WNL, Normal Bowel Sounds, Soft Labs: CBC, BMP 06/20/20 05:52 06/20/20 05:52 INR, PTT INR 2.01 (0.83-1.09) H 06/17/20 11:00 Problem List - Problems (1) Chest pain Assessment/Plan: Troponin negative No arrhythmias while on tele As per cardio Code(s): R07.9 - CHEST PAIN, UNSPECIFIED Qualifiers: Chest pain type: unspecified Qualified Code(s): R07.9 - Chest pain, unspecified (2) Lung nodule seen on imaging study Assessment/Plan: Repeat CT scan chest as oupt in 3 months Code(s): R91.1 - SOLITARY PULMONARY NODULE (3) Anemia Assessment/Plan: H/H stable Code(s): D64.9 - ANEMIA, UNSPECIFIED (4) Chronic kidney disease Assessment/Plan: Acute on chronic renal failure ?Due to lasix Hold lasix in am Monitor labs As per Renal Code(s): N18.9 - CHRONIC KIDNEY DISEASE, UNSPECIFIED Qualifiers: Chronic kidney disease stage: stage 3 (moderate) Qualified Code(s): N18.3 - Chronic kidney disease, stage 3 (moderate) (5) Diabetes mellitus type II, controlled Code(s): E11.9 - TYPE 2 DIABETES MELLITUS WITHOUT COMPLICATIONS Qualifiers: (6) Elevated lipase Assessment/Plan: CT scan abd was negative for any pancreatitis Code(s): R74.8 - ABNORMAL LEVELS OF OTHER SERUM ENZYMES (7) Gout Code(s): M10.9 - GOUT, UNSPECIFIED (8) Hypertension Assessment/Plan: BP stable Code(s): I10 - ESSENTIAL (PRIMARY) HYPERTENSION Qualifiers: Hypertension type: essential hypertension Qualified Code(s): I10 - Essential (primary) hypertension (9) HLD (hyperlipidemia) Assessment/Plan: Cont lipitor Code(s): E78.5 - HYPERLIPIDEMIA, UNSPECIFIED Qualifiers: Hyperlipidemia type: pure hypercholesterolemia Qualified Code(s): E78.00 - Pure hypercholesterolemia, unspecified; E78.0 - Pure hypercholesterolemia (10) PAF (paroxysmal atrial fibrillation) Assessment/Plan: Cont eliquis Heart rate controlled Code(s): I48.0 - PAROXYSMAL ATRIAL FIBRILLATION (11) Pacemaker Code(s): Z95.0 - PRESENCE OF CARDIAC PACEMAKER (12) Osteoarthritis Code(s): M19.90 - UNSPECIFIED OSTEOARTHRITIS, UNSPECIFIED SITE (13) BPH (benign prostatic hyperplasia) Code(s): N40.0 - BENIGN PROSTATIC HYPERPLASIA WITHOUT LOWER URINRY TRACT SYMP
[2020-06-20] MEDS: guaiFENesin 200 MG/10 ML 10 ML UNIT-DOSE CUPS PO PRN (23:41)
[2020-06-21 07:52] LABS: BASO % 0.3 % (0-2.0); EOS % 0.7 % (0-4.5); HEMATOCRIT 38.7 % (35.4-49); HEMOGLOBIN 12.7 GM/dL (11.7-16.9); LYMPH % 24.2 % (8-40); MCH 33.6 pg (25.7-33.7); MCHC 32.9 g/dl (32.0-35.9); MEAN CELL VOLUME 102.3 fl (80-96); MONO % 7.5 % (3.8-10.2); NEUT % 67.3 % (42.8-82.8); PLATELET COUNT 221 K/MM3 (134-434); RBC 3.78 M/mm3 (4.00-5.60); RDW 13.5 % (11.9-15.9); WHITE BLOOD COUNT 12.3 K/mm3 (4.0-10.0)
[2020-06-21 08:15] LABS: ALBUMIN 3.4 g/dl (3.4-5.0); BILIRUBIN,TOTAL 0.6 mg/dL (0.2-1); CALCIUM 9.2 mg/dL (8.5-10.1); POTASSIUM 4.5 mmol/L (3.5-5.1); TOT PROT 7.8 g/dl (6.4-8.2)
[2020-06-21] MEDS: TAMSULOSIN HCL 0.4 MG CAP PO SCH (09:19)
--- NOTE | 2020-06-21 09:58 | PN ---
Progress Note, Physician History of Present Illness: pulmonary alert,comfortable,-cp,+ cough - Current Medication List Current Medications: Active Medications Apixaban (Eliquis -) 2.5 mg PO BID [facility] Last Admin: 06/20/20 21:07 Dose: 2.5 mg Documented by: Atorvastatin Calcium (Lipitor -) 20 mg PO HS [facility] Last Admin: 06/20/20 21:07 Dose: 20 mg Documented by: Guaifenesin (Robitussin -) 5 ml PO Q6H PRN PRN Reason: COUGH Last Admin: 06/20/20 23:41 Dose: 5 ml Documented by: Lisinopril (Prinivil) 5 mg PO DAILY [facility] Last Admin: 06/20/20 11:01 Dose: 5 mg Documented by: Meclizine HCl (Antivert -) 25 mg PO DAILY PRN PRN Reason: dizziness Metoprolol Succinate (Toprol Xl -) 50 mg PO DAILY [facility] Last Admin: 06/20/20 11:01 Dose: 50 mg Documented by: Tamsulosin HCl (Flomax -) 0.4 mg PO DAILY@0830 [facility] Last Admin: 06/20/20 11:00 Dose: 0.4 mg Documented by: - Objective Vital Signs: Vital Signs Temperature 98 F 06/21/20 01:01 Pulse Rate 70 06/21/20 01:01 Respiratory Rate 20 06/21/20 01:01 Blood Pressure 131/68 06/21/20 01:01 O2 Sat by Pulse Oximetry (%) 95 06/20/20 21:50 Constitutional: Yes: Well Nourished, Calm Eyes: Yes: WNL HENT: Yes: WNL Neck: Yes: WNL Cardiovascular: Yes: Regular Rate and Rhythm, S1, S2 Respiratory: Yes: CTA Bilaterally Gastrointestinal: Yes: Normal Bowel Sounds, Soft Extremities: Yes: WNL Edema: No Labs: CBC, BMP 06/21/20 07:10 06/21/20 07:10 INR, PTT INR 2.01 (0.83-1.09) H 06/17/20 11:00 Assessment/Plan Problem List - Problems (1) Lung nodule seen on imaging study Code(s): R91.1 - SOLITARY PULMONARY NODULE (2) Chest pain Code(s): R07.9 - CHEST PAIN, UNSPECIFIED (3) Acute on chronic systolic and diastolic heart failure, NYHA class 1 Code(s): I50.43 - ACUTE ON CHRONIC COMBINED SYSTOLIC AND DIASTOLIC HRT FAIL (4) Anemia Code(s): D64.9 - ANEMIA, UNSPECIFIED (5) BPH (benign prostatic hyperplasia) Code(s): N40.0 - BENIGN PROSTATIC HYPERPLASIA WITHOUT LOWER URINRY TRACT SYMP (6) CAD (coronary artery disease) Code(s): I25.10 - ATHSCL HEART DISEASE OF [place] CORONARY ARTERY W/O ANG PCTRS Qualifiers: (7) Cough Code(s): R05 - COUGH (8) HLD (hyperlipidemia) Code(s): E78.5 - HYPERLIPIDEMIA, UNSPECIFIED (9) Hypertension Code(s): I10 - ESSENTIAL (PRIMARY) HYPERTENSION Qualifiers: ? PANCREATITIS + TROPONIN ACUTE ON CHRONIC KIDNEY INJURY Assessment/Plan LUNG NODULE NOTED ON CXR 6.5 MM RLL WILL REPEAT CT CHEST 6 MONTHS OUTPATIENT MONITOR LYTES,RENAL FUNCTION TREND TROPONIN DR GARNER
--- NOTE | 2020-06-21 10:09 | PN ---
Progress Note, Physician History of Present Illness: 84 yo male with pmh hi of CKD, HLD, CAD, H/o high degree HB s/p PPM placement 2011, replacement 2018, DM, CHF, Gout, Anemia, GIB, s/p CCY presents to the ED for chest pain and cough that started two weeks ago. Pt speaks tai[place]ese so daughter translated. PT explains he has been having chest pain and cough and was seen in the ED last week. Pt was given azithromycin and dc. PT explains cough wi th productive yellow sputum was worsening and chest pain that has started to radiate to the back. Pt explains chest pain is sharp and pressure like and is 8/10 in pain. Pt explains it is associated with SOB and worsening with cough. 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 Pt is also on clindamycin since April 30 due to an abdominal infection in April but those symptoms have subsided. PT denies nausea, vomiting, emesis, diarrhea, lightheadedness, fevers, chills. PMH: CKD, HLD, CAD, H/o high DM, CHF, Gout, Anemia, GIB PSH: stents, pacemaker Allergies: denies Social: 125 pack year history; social alcohol drinker; denies drugs PCP: Dr. Don Patterson - Current Medication List Current Medications: Active Medications Apixaban (Eliquis -) 2.5 mg PO BID [facility] Last Admin: 06/20/20 21:07 Dose: 2.5 mg Documented by: Atorvastatin Calcium (Lipitor -) 20 mg PO HS [facility] Last Admin: 06/20/20 21:07 Dose: 20 mg Documented by: Guaifenesin (Robitussin -) 5 ml PO Q6H PRN PRN Reason: COUGH Last Admin: 06/20/20 23:41 Dose: 5 ml Documented by: Lisinopril (Prinivil) 5 mg PO DAILY [facility] Last Admin: 06/20/20 11:01 Dose: 5 mg Documented by: Meclizine HCl (Antivert -) 25 mg PO DAILY PRN PRN Reason: dizziness Metoprolol Succinate (Toprol Xl -) 50 mg PO DAILY [facility] Last Admin: 06/20/20 11:01 Dose: 50 mg Documented by: Tamsulosin HCl (Flomax -) 0.4 mg PO DAILY@0830 [facility] Last Admin: 06/20/20 11:00 Dose: 0.4 mg Documented by: - Objective Vital Signs: Vital Signs Temperature 98 F 06/21/20 01:01 Pulse Rate 70 06/21/20 01:01 Respiratory Rate 20 06/21/20 01:01 Blood Pressure 131/68 06/21/20 01:01 O2 Sat by Pulse Oximetry (%) 95 06/20/20 21:50 Eyes: Yes: WNL, Conjunctiva Clear, EOM Intact HENT: Yes: WNL, Atraumatic, Normocephalic Neck: Yes: WNL, Supple, Trachea Midline Cardiovascular: Yes: WNL, Regular Rate and Rhythm Respiratory: Yes: WNL, Regular, CTA Bilaterally Gastrointestinal: Yes: WNL, Normal Bowel Sounds Genitourinary: Yes: WNL Musculoskeletal: Yes: WNL Extremities: Yes: WNL Edema: No Integumentary: Yes: WNL Neurological: Yes: WNL, Alert, Oriented ...Motor Strength: WNL Psychiatric: Yes: WNL Labs: CBC, BMP 06/21/20 07:10 06/21/20 07:10 INR, PTT INR 2.01 (0.83-1.09) H 06/17/20 11:00 Problem List - Problems (1) Chest pain Code(s): R07.9 - CHEST PAIN, UNSPECIFIED Qualifiers: Chest pain type: unspecified Qualified Code(s): R07.9 - Chest pain, unspecified (2) Abdominal pain Code(s): R10.9 - UNSPECIFIED ABDOMINAL PAIN (3) Acid reflux Code(s): K21.9 - GASTRO-ESOPHAGEAL REFLUX DISEASE WITHOUT ESOPHAGITIS (4) Acute exacerbation of CHF (congestive heart failure) Code(s): I50.9 - HEART FAILURE, UNSPECIFIED (5) Acute on chronic systolic and diastolic heart failure, NYHA class 1 Code(s): I50.43 - ACUTE ON CHRONIC COMBINED SYSTOLIC AND DIASTOLIC HRT FAIL (6) Acute pancreatitis Code(s): K85.90 - ACUTE PANCREATITIS WITHOUT NECROSIS OR INFECTION, UNSP Qualifiers: (7) Anemia Code(s): D64.9 - ANEMIA, UNSPECIFIED (8) Arthritis of shoulder region, right, degenerative Code(s): M19.011 - PRIMARY OSTEOARTHRITIS, RIGHT SHOULDER (9) Atypical chest pain Code(s): R07.89 - OTHER CHEST PAIN (10) BPH (benign prostatic hyperplasia) Code(s): N40.0 - BENIGN PROSTATIC HYPERPLASIA WITHOUT LOWER URINRY TRACT SYMP (11) Bronchitis Code(s): J40 - BRONCHITIS, NOT SPECIFIED ACUTE OR CHRONIC (12) CAD (coronary artery disease) Code(s): I25.10 - ATHSCL HEART DISEASE OF [place] CORONARY ARTERY W/O ANG PCTRS Qualifiers: Coronary Disease-Associated Artery/Lesion type: [place] artery [place] vs. transplanted heart: [place] heart Associated angina: without angina Qualified Code(s): I25.10 - Atherosclerotic heart disease of [place] coronary artery without angina pectoris (13) Chronic kidney disease Code(s): N18.9 - CHRONIC KIDNEY DISEASE, UNSPECIFIED Qualifiers: Chronic kidney disease stage: stage 3 (moderate) Qualified Code(s): N18.3 - Chronic kidney disease, stage 3 (moderate) (14) Cough Code(s): R05 - COUGH (15) DM (diabetes mellitus), type 2 with renal complications Code(s): E11.29 - TYPE 2 DIABETES MELLITUS W OTH DIABETIC KIDNEY COMPLICATION Qualifiers: Diabetes mellitus predatory animal 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 insulin use: without predatory animal 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 use Chronic kidney disease stage: stage 3 (moderate) (16) Diabetes mellitus type II, controlled Code(s): E11.9 - TYPE 2 DIABETES MELLITUS WITHOUT COMPLICATIONS Qualifiers: (17) Diarrhea Code(s): R19.7 - DIARRHEA, UNSPECIFIED (18) Dizziness Code(s): R42 - DIZZINESS AND GIDDINESS (19) Dyspnea Code(s): R06.00 - DYSPNEA, UNSPECIFIED (20) Early satiety Code(s): R68.81 - EARLY SATIETY (21) Elevated CEA Code(s): R97.0 - ELEVATED CARCINOEMBRYONIC ANTIGEN [CEA] (22) Elevated lipase Code(s): R74.8 - ABNORMAL LEVELS OF OTHER SERUM ENZYMES (23) Elevated troponin Code(s): R79.89 - OTHER SPECIFIED ABNORMAL FINDINGS OF BLOOD CHEMISTRY (24) [place] cardiac risk >20% in next 10 years Code(s): Z91.89 - OT PERSONAL RISK FACTORS, NOT ELSEWHERE CLASSIFIED (25) Gout Code(s): M10.9 - GOUT, UNSPECIFIED (26) Gout attack Code(s): M10.9 - GOUT, UNSPECIFIED (27) HLD (hyperlipidemia) Code(s): E78.5 - HYPERLIPIDEMIA, UNSPECIFIED Qualifiers: Hyperlipidemia type: pure hypercholesterolemia Qualified Code(s): E78.00 - Pure hypercholesterolemia, unspecified; E78.0 - Pure hypercholesterolemia (28) Hypertension Code(s): I10 - ESSENTIAL (PRIMARY) HYPERTENSION Qualifiers: Hypertension type: essential hypertension Qualified Code(s): I10 - Essential (primary) hypertension (29) Iron deficiency anemia Code(s): D50.9 - IRON DEFICIENCY ANEMIA, UNSPECIFIED (30) Left knee pain Code(s): M25.562 - PAIN IN LEFT KNEE (31) Lower back pain Code(s): M54.5 - LOW BACK PAIN (32) NSVT (nonsustained ventricular tachycardia) Code(s): I47.2 - VENTRICULAR TACHYCARDIA (33) Osteoarthritis Code(s): M19.90 - UNSPECIFIED OSTEOARTHRITIS, UNSPECIFIED SITE (34) PAF (paroxysmal atrial fibrillation) Code(s): I48.0 - PAROXYSMAL ATRIAL FIBRILLATION (35) Pacemaker Code(s): Z95.0 - PRESENCE OF CARDIAC PACEMAKER (36) Pharyngitis Code(s): J02.9 - ACUTE PHARYNGITIS, UNSPECIFIED (37) Pneumonia Code(s): J18.9 - PNEUMONIA, UNSPECIFIED ORGANISM Qualifiers: (38) SOB (shortness of breath) Code(s): R06.02 - SHORTNESS OF BREATH (39) Stented coronary artery Code(s): Z95.5 - PRESENCE OF CORONARY ANGIOPLASTY IMPLANT AND GRAFT (40) Vertigo Code(s): R42 - DIZZINESS AND GIDDINESS (41) Volume overload Code(s): E87.70 - FLUID OVERLOAD, UNSPECIFIED Assessment/Plan 1. Chest pain 2. Chronic diastolic CHF 3. PAF->SR on eliquis 4. CAD s/p stent with demand ischemia, Hx coronary angiogram 2014: patent coronary stent. 5. CKD 6. HLD 7. 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 Type 2 DM 10. Gout 11. GIB 12. 6.5 MM RLL nodule Plan: 1. Trops plateaued 2. Lasix 40 qd with monitor diuretic response, renal fxn and electrolytes 3. Continue Eliquis 2.5 bid, Lipitor 20 qd, lisinopril 5 qd, Toprol XL 50 qd, recommend bowel regimen 4. Chest CT surveillance of pulm nodule in 6 months per pulmonary 5. Observe off abx per ID d/ telemetry
[2020-06-21] MEDS: guaiFENesin 200 MG/10 ML 10 ML UNIT-DOSE CUPS PO PRN (10:19)
[2020-06-21] MEDS: APIXABAN 2.5 MG TABLET PO SCH ×2 (10:19→22:42)
[2020-06-21] MEDS: LISINOPRIL 5 MG TABLET (FP) PO SCH (10:19)
--- NOTE | 2020-06-21 15:47 | PN ---
Progress Note, Physician History of Present Illness: Pt seen and examined at bedside. He is awake and appears comfortable. He feels that his lower ext edema is improved. - Current Medication List Current Medications: Active Medications Apixaban (Eliquis -) 2.5 mg PO BID [facility] Last Admin: 06/21/20 10:19 Dose: 2.5 mg Documented by: Atorvastatin Calcium (Lipitor -) 20 mg PO HS [facility] Last Admin: 06/20/20 21:07 Dose: 20 mg Documented by: Guaifenesin (Robitussin -) 5 ml PO Q6H PRN PRN Reason: COUGH Last Admin: 06/21/20 10:19 Dose: 5 ml Documented by: Lisinopril (Prinivil) 5 mg PO DAILY [facility] Last Admin: 06/21/20 10:19 Dose: 5 mg Documented by: Meclizine HCl (Antivert -) 25 mg PO DAILY PRN PRN Reason: dizziness Metoprolol Succinate (Toprol Xl -) 50 mg PO DAILY [facility] Last Admin: 06/21/20 10:19 Dose: 50 mg Documented by: Tamsulosin HCl (Flomax -) 0.4 mg PO DAILY@0830 [facility] Last Admin: 06/21/20 09:19 Dose: 0.4 mg Documented by: - Objective Vital Signs: Vital Signs Temperature 98.3 F 06/21/20 09:00 Pulse Rate 70 06/21/20 09:00 Respiratory Rate 20 06/21/20 09:00 Blood Pressure 147/80 06/21/20 09:00 O2 Sat by Pulse Oximetry (%) 96 06/21/20 09:00 Constitutional: Yes: Calm Eyes: Yes: Conjunctiva Clear HENT: Yes: Atraumatic Neck: Yes: Supple Cardiovascular: Yes: S1, S2 Gastrointestinal: Yes: Normal Bowel Sounds, Soft Genitourinary: Yes: WNL Musculoskeletal: Yes: WNL Edema: Yes Edema: LLE: 1+, RLE: 1+ Neurological: Yes: Oriented Psychiatric: Yes: Oriented Labs: CBC, BMP 06/21/20 07:10 06/21/20 07:10 INR, PTT INR 2.01 (0.83-1.09) H 06/17/20 11:00 Problem List - Problems (1) Chest pain Code(s): R07.9 - CHEST PAIN, UNSPECIFIED Qualifiers: Chest pain type: unspecified Qualified Code(s): R07.9 - Chest pain, unspecified (2) Chronic kidney disease Code(s): N18.9 - CHRONIC KIDNEY DISEASE, UNSPECIFIED Qualifiers: Chronic kidney disease stage: stage 3 (moderate) Qualified Code(s): N18.3 - Chronic kidney disease, stage 3 (moderate) Assessment/Plan Current Medications Generic Name Dose Route Start Last Admin Trade Name Freq PRN Reason Stop Dose Admin Apixaban 2.5 mg 06/18/20 00:45 06/21/20 10:19 Eliquis - PO 2.5 mg BID [facility] Administration Atorvastatin Calcium 20 mg 06/18/20 22:00 06/20/20 21:07 Lipitor - PO 20 mg HS [facility] Administration Guaifenesin 5 ml 06/20/20 23:24 06/21/20 10:19 Robitussin - PO 5 ml Q6H PRN Administration COUGH Lisinopril 5 mg 06/18/20 10:00 06/21/20 10:19 Prinivil PO 5 mg DAILY [facility] Administration Meclizine HCl 25 mg 06/18/20 00:34 Antivert - PO DAILY PRN dizziness Metoprolol Succinate 50 mg 06/18/20 10:00 06/21/20 10:19 Toprol Xl - PO 50 mg DAILY [facility] Administration Tamsulosin HCl 0.4 mg 06/18/20 08:30 06/21/20 09:19 Flomax - PO 0.4 mg DAILY@0830 [facility] Administration Impression 1. CKD 2. chest pain 3. cough 4. CHF 5. cad 6. hld 7. gout 8. chf Plan - benefits manager is rising - hold andrez for now - repeat labs in am - chest pain resolved - pulm follow up - avoid nsaids
--- NOTE | 2020-06-21 21:44 | PN ---
Progress Note, Physician - Current Medication List Current Medications: Active Medications Apixaban (Eliquis -) 2.5 mg PO BID [facility] Last Admin: 06/21/20 10:19 Dose: 2.5 mg Documented by: Atorvastatin Calcium (Lipitor -) 20 mg PO HS [facility] Last Admin: 06/20/20 21:07 Dose: 20 mg Documented by: Guaifenesin (Robitussin -) 5 ml PO Q6H PRN PRN Reason: COUGH Last Admin: 06/21/20 10:19 Dose: 5 ml Documented by: Meclizine HCl (Antivert -) 25 mg PO DAILY PRN PRN Reason: dizziness Metoprolol Succinate (Toprol Xl -) 50 mg PO DAILY [facility] Last Admin: 06/21/20 10:19 Dose: 50 mg Documented by: Tamsulosin HCl (Flomax -) 0.4 mg PO DAILY@0830 [facility] Last Admin: 06/21/20 09:19 Dose: 0.4 mg Documented by: - Objective Vital Signs: Vital Signs Temperature 98.0 F 06/21/20 17:53 Pulse Rate 70 06/21/20 17:53 Respiratory Rate 06/21/20 17:53 Blood Pressure 137/76 06/21/20 17:53 O2 Sat by Pulse Oximetry (%) 95 06/21/20 17:53 Labs: CBC, BMP 06/21/20 07:10 06/21/20 07:10 INR, PTT INR 2.01 (0.83-1.09) H 06/17/20 11:00 Problem List - Problems (1) Chest pain Code(s): R07.9 - CHEST PAIN, UNSPECIFIED Qualifiers: Chest pain type: unspecified Qualified Code(s): R07.9 - Chest pain, unspeci fied (2) Lung nodule seen on imaging study Code(s): R91.1 - SOLITARY PULMONARY NODULE (3) Anemia Code(s): D64.9 - ANEMIA, UNSPECIFIED (4) Chronic kidney disease Code(s): N18.9 - CHRONIC KIDNEY DISEASE, UNSPECIFIED Qualifiers: Chronic kidney disease stage: stage 3 (moderate) Qualified Code(s): N18.3 - Chronic kidney disease, stage 3 (moderate) (5) Diabetes mellitus type II, controlled Code(s): E11.9 - TYPE 2 DIABETES MELLITUS WITHOUT COMPLICATIONS Qualifiers: (6) Elevated lipase Code(s): R74.8 - ABNORMAL LEVELS OF OTHER SERUM ENZYMES (7) Gout Code(s): M10.9 - GOUT, UNSPECIFIED (8) Hypertension Code(s): I10 - ESSENTIAL (PRIMARY) HYPERTENSION Qualifiers: Hypertension type: essential hypertension Qualified Code(s): I10 - Essential (primary) hypertension (9) HLD (hyperlipidemia) Code(s): E78.5 - HYPERLIPIDEMIA, UNSPECIFIED Qualifiers: Hyperlipidemia type: pure hypercholesterolemia Qualified Code(s): E78.00 - Pure hypercholesterolemia, unspecified; E78.0 - Pure hypercholesterolemia (10) PAF (paroxysmal atrial fibrillation) Code(s): I48.0 - PAROXYSMAL ATRIAL FIBRILLATION (11) Pacemaker Code(s): Z95.0 - PRESENCE OF CARDIAC PACEMAKER (12) Osteoarthritis Code(s): M19.90 - UNSPECIFIED OSTEOARTHRITIS, UNSPECIFIED SITE (13) BPH (benign prostatic hyperplasia) Code(s): N40.0 - BENIGN PROSTATIC HYPERPLASIA WITHOUT LOWER URINRY TRACT SYMP
--- NOTE | 2020-06-21 21:55 | EKG ---
Test Reason : Blood Pressure : / mmHG Vent. Rate : 074 BPM Atrial Rate : 131 BPM P-R Int : 000 ms QRS Dur : 164 ms QT Int : 468 ms P-R-T Axes : 000 -67 115 degrees QTc Int : 519 ms Ventricular-paced rhythm WITH OCCASIONAL PREMATURE VENTRICULAR COMPLEXES ABNORMAL ECG WHEN COMPARED WITH ECG OF 17-JUN-2020 09:28, NO SIGNIFICANT CHANGE WAS FOUND Confirmed by CRISTOBAL CROWE MD ([id number]) on 06/21/2020 9:55:21 PM Referred By: Ivett AGUILAR Confirmed By:CRISTOBAL CROWE MD
[2020-06-21] MEDS: ATORVASTATIN CA 20 MG TABLET (FP) PO SCH (22:42)
[2020-06-22] MEDS: guaiFENesin 200 MG/10 ML 10 ML UNIT-DOSE CUPS PO PRN ×2 (04:50→20:42)
[2020-06-22 07:26] LABS: BASO % 0.2 % (0-2.0); EOS % 1.3 % (0-4.5); HEMOGLOBIN 11.5 GM/dL (11.7-16.9); LYMPH % 21.2 % (8-40); MCH 33.7 pg (25.7-33.7); MCHC 32.8 g/dl (32.0-35.9); MEAN CELL VOLUME 102.6 fl (80-96); MEAN PLT VOLUME 7.6 fl (7.5-11.1); MONO % 8.4 % (3.8-10.2); NEUT % 68.9 % (42.8-82.8); PLATELET COUNT 197 K/MM3 (134-434); RBC 3.41 M/mm3 (4.00-5.60); RDW 13.6 % (11.9-15.9)
[2020-06-22 07:56] LABS: BILIRUBIN,TOTAL 0.5 mg/dL (0.2-1); CALCIUM 8.4 mg/dL (8.5-10.1); CREATININE 2.8 mg/dL (0.55-1.3); POTASSIUM 4.1 mmol/L (3.5-5.1); TOT PROT 6.9 g/dl (6.4-8.2)
[2020-06-22] MEDS: TAMSULOSIN HCL 0.4 MG CAP PO SCH (09:40)
[2020-06-22] MEDS: APIXABAN 2.5 MG TABLET PO SCH ×2 (09:40→23:31)
--- NOTE | 2020-06-22 10:19 | PN ---
Progress Note, Physician History of Present Illness: PULMONARY ALERT,OOB-CHAIR,-C/O SOB,-CP,LESS COUGH - Current Medication List Current Medications: Active Medications Apixaban (Eliquis -) 2.5 mg PO BID [facility] Last Admin: 06/22/20 09:40 Dose: 2.5 mg Documented by: Atorvastatin Calcium (Lipitor -) 20 mg PO HS [facility] Last Admin: 06/21/20 22:42 Dose: 20 mg Documented by: Guaifenesin (Robitussin -) 5 ml PO Q6H PRN PRN Reason: COUGH Last Admin: 06/22/20 04:50 Dose: 5 ml Documented by: Meclizine HCl (Antivert -) 25 mg PO DAILY PRN PRN Reason: dizziness Metoprolol Succinate (Toprol Xl -) 50 mg PO DAILY [facility] Last Admin: 06/22/20 09:39 Dose: 50 mg Documented by: Tamsulosin HCl (Flomax -) 0.4 mg PO DAILY@0830 [facility] Last Admin: 06/22/20 09:40 Dose: 0.4 mg Documented by: - Objective Vital Signs: Vital Signs Temperature 98 F 06/22/20 09:00 Pulse Rate 70 06/22/20 09:00 Respiratory Rate 18 06/22/20 09:00 Blood Pressure 102/56 L 06/22/20 09:00 O2 Sat by Pulse Oximetry (%) 95 06/22/20 09:00 Constitutional: Yes: Well Nourished, Calm Eyes: Yes: WNL HENT: Yes: WNL Neck: Yes: WNL Cardiovascular: Yes: Pulse Irregular, S1, S2 Respiratory: Yes: Diminished Gastrointestinal: Yes: Normal Bowel Sounds, Soft Extremities: Yes: WNL Edema: No Labs: CBC, BMP 06/22/20 05:30 06/22/20 05:30 INR, PTT INR 2.01 (0.83-1.09) H 06/17/20 11:00 Assessment/Plan Problem List - Problems (1) Lung nodule seen on imaging study Code(s): R91.1 - SOLITARY PULMONARY NODULE (2) Chest pain Code(s): R07.9 - CHEST PAIN, UNSPECIFIED (3) Acute on chronic systolic and diastolic heart failure, NYHA class 1 Code(s): I50.43 - ACUTE ON CHRONIC COMBINED SYSTOLIC AND DIASTOLIC HRT FAIL (4) Anemia Code(s): D64.9 - ANEMIA, UNSPECIFIED (5) BPH (benign prostatic hyperplasia) Code(s): N40.0 - BENIGN PROSTATIC HYPERPLASIA WITHOUT LOWER URINRY TRACT SYMP (6) CAD (coronary artery disease) Code(s): I25.10 - ATHSCL HEART DISEASE OF [place] CORONARY ARTERY W/O ANG PCTRS Qualifiers: (7) Cough Code(s): R05 - COUGH (8) HLD (hyperlipidemia) Code(s): E78.5 - HYPERLIPIDEMIA, UNSPECIFIED (9) Hypertension Code(s): I10 - ESSENTIAL (PRIMARY) HYPERTENSION Qualifiers: ? PANCREATITIS + TROPONIN ACUTE ON CHRONIC KIDNEY INJURY Assessment/Plan LUNG NODULE NOTED ON CXR 6.5 MM R[address] WILL REPEAT CT CHEST 6 MONTHS OUTPATIENT MONITOR LYTES,RENAL FUNCTION TREND TROPONIN DR GARNER
--- NOTE | 2020-06-22 12:12 | PN ---
Progress Note, Physician History of Present Illness: Pt seen and examined at bedside. He is awake and alert. he denies shortness of breath. He is out of bed to chair. - Current Medication List Current Medications: Active Medications Apixaban (Eliquis -) 2.5 mg PO BID [facility] Last Admin: 06/22/20 09:40 Dose: 2.5 mg Documented by: Atorvastatin Calcium (Lipitor -) 20 mg PO HS [facility] Last Admin: 06/21/20 22:42 Dose: 20 mg Documented by: Guaifenesin (Robitussin -) 5 ml PO Q6H PRN PRN Reason: COUGH Last Admin: 06/22/20 04:50 Dose: 5 ml Documented by: Meclizine HCl (Antivert -) 25 mg PO DAILY PRN PRN Reason: dizziness Metoprolol Succinate (Toprol Xl -) 50 mg PO DAILY [facility] Last Admin: 06/22/20 09:39 Dose: 50 mg Documented by: Tamsulosin HCl (Flomax -) 0.4 mg PO DAILY@0830 [facility] Last Admin: 06/22/20 09:40 Dose: 0.4 mg Documented by: - Objective Vital Signs: Vital Signs Temperature 98 F 06/22/20 09:00 Pulse Rate 70 06/22/20 09:00 Respiratory Rate 18 06/22/20 09:00 Blood Pressure 102/56 L 06/22/20 09:00 O2 Sat by Pulse Oximetry (%) 95 06/22/20 09:00 Constitutional: Yes: Calm Eyes: Yes: Conjunctiva Clear HENT: Yes: Atraumatic Neck: Yes: Supple Cardiovascular: Yes: S1, S2 Respiratory: Yes: CTA Bilaterally Gastrointestinal: Yes: Normal Bowel Sounds, Soft Genitourinary: Yes: WNL Musculoskeletal: Yes: WNL Edema: Yes Edema: LLE: Trace, RLE: Trace Neurological: Yes: Oriented Psychiatric: Yes: Oriented Labs: CBC, BMP 06/22/20 05:30 06/22/20 05:30 INR, PTT INR 2.01 (0.83-1.09) H 06/17/20 11:00 Problem List - Problems (1) Chest pain Code(s): R07.9 - CHEST PAIN, UNSPECIFIED Qualifiers: Chest pain type: unspecified Qualified Code(s): R07.9 - Chest pain, unspecified (2) Chronic kidney disease Code(s): N18.9 - CHRONIC KIDNEY DISEASE, UNSPECIFIED Qualifiers: Chronic kidney disease stage: stage 3 (moderate) Qualified Code(s): N18.3 - Chronic kidney disease, stage 3 (moderate) Assessment/Plan Current Medications Generic Name Dose Route Start Last Admin Trade Name Freq PRN Reason Stop Dose Admin Apixaban 2.5 mg 06/18/20 00:45 06/22/20 09:40 Eliquis - PO 2.5 mg BID [facility] Administration Atorvastatin Calcium 20 mg 06/18/20 22:00 06/21/20 22:42 Lipitor - PO 20 mg HS [facility] Administration Guaifenesin 5 ml 06/20/20 23:24 06/22/20 04:50 Robitussin - PO 5 ml Q6H PRN Administration COUGH Meclizine HCl 25 mg 06/18/20 00:34 Antivert - PO DAILY PRN dizziness Metoprolol Succinate 50 mg 06/18/20 10:00 06/22/20 09:39 Toprol Xl - PO 50 mg DAILY [facility] Administration Tamsulosin HCl 0.4 mg 06/18/20 08:30 06/22/20 09:40 Flomax - PO 0.4 mg DAILY@0830 [facility] Administration Impression 1. CKD 2. chest pain 3. cough 4. CHF 5. cad 6. hld 7. gout Plan - renal function starting to improve - andrez held for hypotension - repeat labs in am - lasix on hold, volume status improving - monitor bp - chest pain resolved - pulm follow up - avoid nsaids
--- NOTE | 2020-06-22 12:57 | PN ---
Progress Note, Physician History of Present Illness: stable awake and alert - Current Medication List Current Medications: Active Medications Apixaban (Eliquis -) 2.5 mg PO BID [facility] Last Admin: 06/22/20 09:40 Dose: 2.5 mg Documented by: Atorvastatin Calcium (Lipitor -) 20 mg PO HS [facility] Last Admin: 06/21/20 22:42 Dose: 20 mg Documented by: Guaifenesin (Robitussin -) 5 ml PO Q6H PRN PRN Reason: COUGH Last Admin: 06/22/20 04:50 Dose: 5 ml Documented by: Meclizine HCl (Antivert -) 25 mg PO DAILY PRN PRN Reason: dizziness Metoprolol Succinate (Toprol Xl -) 50 mg PO DAILY [facility] Last Admin: 06/22/20 09:39 Dose: 50 mg Documented by: Tamsulosin HCl (Flomax -) 0.4 mg PO DAILY@0830 [facility] Last Admin: 06/22/20 09:40 Dose: 0.4 mg Documented by: - Objective Vital Signs: Vital Signs Temperature 98 F 06/22/20 09:00 Pulse Rate 70 06/22/20 09:00 Respiratory Rate 18 06/22/20 09:00 Blood Pressure 102/56 L 06/22/20 09:00 O2 Sat by Pulse Oximetry (%) 95 06/22/20 09:00 Constitutional: Yes: No Distress, Calm Cardiovascular: Yes: S1, S2 Respiratory: Yes: Regular, CTA Bilaterally Gastrointestinal: Yes: Normal Bowel Sounds, Soft Musculoskeletal: Yes: WNL Extremities: Yes: WNL Neurological: Yes: Alert, Oriented Psychiatric: Yes: Alert, Oriented Labs: CBC, BMP 06/22/20 05:30 06/22/20 05:30 INR, PTT INR 2.01 (0.83-1.09) H 06/17/20 11:00 Assessment/Plan Problem List - Problems (1) Lung nodule seen on imaging study Code(s): R91.1 - SOLITARY PULMONARY NODULE (2) Chest pain Code(s): R07.9 - CHEST PAIN, UNSPECIFIED (3) Acute on chronic systolic and diastolic heart failure, NYHA class 1 Code(s): I50.43 - ACUTE ON CHRONIC COMBINED SYSTOLIC AND DIASTOLIC HRT FAIL (4) Anemia Code(s): D64.9 - ANEMIA, UNSPECIFIED (5) BPH (benign prostatic hyperplasia) Code(s): N40.0 - BENIGN PROSTATIC HYPERPLASIA WITHOUT LOWER URINRY TRACT SYMP (6) CAD (coronary artery disease) Code(s): I25.10 - ATHSCL HEART DISEASE OF [place] CORONARY ARTERY W/O ANG PCTRS Qualifiers: (7) Cough Code(s): R05 - COUGH (8) HLD (hyperlipidemia) Code(s): E78.5 - HYPERLIPIDEMIA, UNSPECIFIED (9) Hypertension Code(s): I10 - ESSENTIAL (PRIMARY) HYPERTENSION Qualifiers: pancreatitis lipase has increased plan continue current mgmt monitor pancreatic enzymes ct scan result noted
--- NOTE | 2020-06-22 15:14 | PN ---
Progress Note, Physician Chief Complaint: Pt A&Ox3; sitting up at bedside; no chest pain or dyspnea. History of Present Illness: Mr. Pierce is an 84 yo black male (b. [place]), with pmh hi of CKD, HLD, CAD, H/o high degree HB s/p PPM placement 2011, replacement 2018, DM, CHF (low- normal LVEF on 12/2019 ECHO), Gout, Anemia, GIB, s/p CCY presents to the ED for chest pain and cough that started two weeks ago. PT explains he has been having chest pain and cough and was seen in the ED last week. Pt was given azithromycin and dc. PT explains cough with productive yellow sputum was worsening and chest pain that has started to radiate to the back. Pt explains chest pain is sharp and pressure like and is 8/10 in pain. Pt explains it is associated with SOB and worsening with cough. 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 Pt is also on clindamycin since April 30 due to an abdominal infection in April but those symptoms have subsided. PT denies nausea, vomiting, emesis, diarrhea, lightheadedness, fevers, chills. PMH: CKD, HLD, CAD, H/o high DM, CHF, Gout, Anemia, GIB PSH: LAD stent, pacemaker Allergies: denies Social: smoked 4-5 ppd since teenager; quit 40 yrs ago; social alcohol drinker; denies drugs PCP: Dr. Don Patterson Teacher Early Childhood Development: Dr. Bonita Coburn - Current Medication List Current Medications: Active Medications Apixaban (Eliquis -) 2.5 mg PO BID [facility] Last Admin: 06/22/20 09:40 Dose: 2.5 mg Documented by: Atorvastatin Calcium (Lipitor -) 20 mg PO HS [facility] Last Admin: 06/21/20 22:42 Dose: 20 mg Documented by: Guaifenesin (Robitussin -) 5 ml PO Q6H PRN PRN Reason: COUGH Last Admin: 06/22/20 04:50 Dose: 5 ml Documented by: Meclizine HCl (Antivert -) 25 mg PO DAILY PRN PRN Reason: dizziness Metoprolol Succinate (Toprol Xl -) 50 mg PO DAILY [facility] Last Admin: 06/22/20 09:39 Dose: 50 mg Documented by: Tamsulosin HCl (Flomax -) 0.4 mg PO DAILY@0830 [facility] Last Admin: 06/22/20 09:40 Dose: 0.4 mg Documented by: - Objective Vital Signs: Vital Signs Temperature 98 F 06/22/20 09:00 Pulse Rate 70 06/22/20 09:00 Respiratory Rate 18 06/22/20 09:00 Blood Pressure 102/56 L 06/22/20 09:00 O2 Sat by Pulse Oximetry (%) 95 06/22/20 09:00 Constitutional: Yes: No Distress Eyes: Yes: WNL HENT: Yes: WNL Neck: Yes: WNL Cardiovascular: Yes: S1, S2 Respiratory: Yes: WNL Gastrointestinal: Yes: Soft ...Rectal Exam: Yes: Deferred Genitourinary: No: Anuria Musculoskeletal: Yes: WNL Extremities: Yes: WNL Edema: No Peripheral Pulses WNL: Yes Integumentary: Yes: WNL Neurological: Yes: WNL Psychiatric: Yes: WNL Labs: CBC, BMP 06/22/20 05:30 06/22/20 05:30 INR, PTT INR 2.01 (0.83-1.09) H 06/17/20 11:00 Abnormal Lab Results 06/22/20 06/22/20 05:30 05:30 WBC 11.0 H RBC 3.41 L Hgb 11.5 L Hct 35.0 L MCV 102.6 H BUN 53.0 H Creatinine 2.8 H Random Glucose 153 H Calcium 8.4 L Albumin 3.0 L - ....Imaging Chest X-ray: Image Reviewed EKG: Image Reviewed Assessment/Plan 1. Atypical Chest pain (constant for 3 days, unaffected by exertion) 2. Chronic low normal systolic/diastolic CHF 3. PAF->SR on eliquis; beta blockers 4. CAD s/p stent with demand ischemia, Hx coronary angiogram 2014: patent coronary stent; no ischemia on 2019 stress MIBI. 5. CKD 6. HLD 7. High degree HB s/p PPM placement 2011, replacement 2018 or 2019 8. Chemical pancreatitis h/o cholecystectomy 9. Type 2 DM 10. Gout 11. GIB 12. 6.5 MM RLL nodule 13. hx vertigo 14. known hx NSVT; EP study showed no inducible VT Plan: 1. Trops plateaued; mildly elevated since at least 2017. 2. Lasix 40 qd with monitor diuretic response, renal fxn and electrolytes 3. Continue Eliquis 2.5 bid, Lipitor 20 qd, lisinopril 5 qd, Toprol XL [address] surveillance of pulmonary nodule in 6 months per pulmonary 5. Observe off abx per ID 6. d/c telemetry 7. Increase atorvastatin to 40 mg daily (LDL 76 mg/dL). 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 Humphrey, notes last office visit 01/2020: Dizziness (likely vertigo) improved; hx moderate carotid artery stenosis treated with statin and ASA (no stenosis on most recent US). Hx PAF; NSVT (no inducible VT on EP study). Hx LAD stent, which was patent on most recent coronary angiogram. Known OM disease; pt reluctant to proceed with further angiogram. Planned for repeat stress MIBI as outpatient.
--- NOTE | 2020-06-22 17:26 | PN ---
Progress Note, Physician - Current Medication List Current Medications: Active Medications Apixaban (Eliquis -) 2.5 mg PO BID [facility] Last Admin: 06/22/20 09:40 Dose: 2.5 mg Documented by: Atorvastatin Calcium (Lipitor -) 20 mg PO HS [facility] Last Admin: 06/21/20 22:42 Dose: 20 mg Documented by: Guaifenesin (Robitussin -) 5 ml PO Q6H PRN PRN Reason: COUGH Last Admin: 06/22/20 04:50 Dose: 5 ml Documented by: Meclizine HCl (Antivert -) 25 mg PO DAILY PRN PRN Reason: dizziness Metoprolol Succinate (Toprol Xl -) 50 mg PO DAILY [facility] Last Admin: 06/22/20 09:39 Dose: 50 mg Documented by: Tamsulosin HCl (Flomax -) 0.4 mg PO DAILY@0830 [facility] Last Admin: 06/22/20 09:40 Dose: 0.4 mg Documented by: - Objective Vital Signs: Vital Signs Temperature 98 F 06/22/20 09:00 Pulse Rate 70 06/22/20 09:00 Respiratory Rate 18 06/22/20 09:00 Blood Pressure 102/56 L 06/22/20 09:00 O2 Sat by Pulse Oximetry (%) 95 06/22/20 09:00 Constitutional: Yes: No Distress HENT: Yes: Atraumatic Neck: Yes: Supple Cardiovascular: Yes: Regular Rate and Rhythm Respiratory: Yes: CTA Bilaterally Gastrointestinal: Yes: Normal Bowel Sounds Extremities: Yes: WNL Edema: No Neurological: Yes: Alert, Oriented Labs: CBC, BMP 06/22/20 05:30 06/22/20 05:30 INR, PTT INR 2.01 (0.83-1.09) H 06/17/20 11:00 Problem List - Problems (1) Chest pain Assessment/Plan: resolved Code(s): R07.9 - CHEST PAIN, UNSPECIFIED Qualifiers: Chest pain type: unspecified Qualified Code(s): R07.9 - Chest pain, unspecified (2) Lung nodule seen on imaging study Assessment/Plan: pulmonary consult reviewed out pt work up Code(s): R91.1 - SOLITARY PULMONARY NODULE (3) Abdominal pain Code(s): R10.9 - UNSPECIFIED ABDOMINAL PAIN (4) Acute pancreatitis Assessment/Plan: elevated lipase will switch to full liquid diet gi consult Code(s): K85.90 - ACUTE PANCREATITIS WITHOUT NECROSIS OR INFECTION, UNSP Qualifiers: (5) BPH (benign prostatic hyperplasia) Code(s): N40.0 - BENIGN PROSTATIC HYPERPLASIA WITHOUT LOWER URINRY TRACT SYMP (6) Chronic kidney disease Assessment/Plan: renal on board Code(s): N18.9 - CHRONIC KIDNEY DISEASE, UNSPECIFIED Qualifiers: Chronic kidney disease stage: stage 3 (moderate) Qualified Code(s): N18.3 - Chronic kidney disease, stage 3 (moderate) (7) DM (diabetes mellitus), type 2 with renal complications Code(s): E11.29 - TYPE 2 DIABETES MELLITUS W OTH DIABETIC KIDNEY COMPLICATION Qualifiers: Diabetes mellitus termite treater helper insulin use: without termite treater helper use Chronic kidney disease stage: stage 3 (moderate) (8) HLD (hyperlipidemia) Code(s): E78.5 - HYPERLIPIDEMIA, UNSPECIFIED Qualifiers: Hyperlipidemia type: pure hypercholesterolemia Qualified Code(s): E78.00 - Pure hypercholesterolemia, unspecified; E78.0 - Pure hypercholesterolemia (9) Hypertension Assessment/Plan: on meds monitor Code(s): I10 - ESSENTIAL (PRIMARY) HYPERTENSION Qualifiers: Hypertension type: essential hypertension Qualified Code(s): I10 - Essential (primary) hypertension (10) PAF (paroxysmal atrial fibrillation) Code(s): I48.0 - PAROXYSMAL ATRIAL FIBRILLATION (11) Pacemaker Code(s): Z95.0 - PRESENCE OF CARDIAC PACEMAKER Assessment/Plan COVERING FOR DR MYRON CARBAJAL
[2020-06-22] MEDS: ATORVASTATIN CA 20 MG TABLET (FP) PO SCH (23:31)
--- NOTE | 2020-06-23 08:00 | PN ---
Progress Note, Physician History of Present Illness: PULMONARY ALERT,NO DISTRESS,-SOB,CP - Current Medication List Current Medications: Active Medications Apixaban (Eliquis -) 2.5 mg PO BID [facility] Last Admin: 06/22/20 23:31 Dose: 2.5 mg Documented by: Atorvastatin Calcium (Lipitor -) 20 mg PO HS [facility] Last Admin: 06/22/20 23:31 Dose: 20 mg Documented by: Guaifenesin (Robitussin -) 5 ml PO Q6H PRN PRN Reason: COUGH Last Admin: 06/22/20 20:42 Dose: 5 ml Documented by: Meclizine HCl (Antivert -) 25 mg PO DAILY PRN PRN Reason: dizziness Metoprolol Succinate (Toprol Xl -) 50 mg PO DAILY [facility] Last Admin: 06/22/20 09:39 Dose: 50 mg Documented by: Tamsulosin HCl (Flomax -) 0.4 mg PO DAILY@0830 [facility] Last Admin: 06/22/20 09:40 Dose: 0.4 mg Documented by: - Objective Vital Signs: Vital Signs Temperature 97.6 F 06/23/20 01:01 Pulse Rate 70 06/23/20 06:28 Respiratory Rate 18 06/23/20 06:28 Blood Pressure 116/77 06/23/20 06:28 O2 Sat by Pulse Oximetry (%) 95 06/22/20 09:00 Constitutional: Yes: Well Nourished, Calm Eyes: Yes: WNL HENT: Yes: WNL Neck: Yes: WNL Cardiovascular: Yes: Pulse Irregular, S1, S2 Respiratory: Yes: Diminished Gastrointestinal: Yes: Normal Bowel Sounds, Soft Extremities: Yes: WNL Edema: No Labs: CBC, BMP Assessment/Plan Problem List - Problems (1) Lung nodule seen on imaging study Code(s): R91.1 - SOLITARY PULMONARY NODULE (2) Chest pain Code(s): R07.9 - CHEST PAIN, UNSPECIFIED (3) Acute on chronic systolic and diastolic heart failure, NYHA class 1 Code(s): I50.43 - ACUTE ON CHRONIC COMBINED SYSTOLIC AND DIASTOLIC HRT FAIL (4) Anemia Code(s): D64.9 - ANEMIA, UNSPECIFIED (5) BPH (benign prostatic hyperplasia) Code(s): N40.0 - BENIGN PROSTATIC HYPERPLASIA WITHOUT LOWER URINRY TRACT SYMP (6) CAD (coronary artery disease) Code(s): I25.10 - ATHSCL HEART DISEASE OF [place] CORONARY ARTERY W/O ANG PCTRS Qualifiers: (7) Cough Code(s): R05 - COUGH (8) HLD (hyperlipidemia) Code(s): E78.5 - HYPERLIPIDEMIA, UNSPECIFIED (9) Hypertension Code(s): I10 - ESSENTIAL (PRIMARY) HYPERTENSION Qualifiers: ? PANCREATITIS + TROPONIN ACUTE ON CHRONIC KIDNEY INJURY Assessment/Plan LUNG NODULE NOTED ON CXR 6.[address] CHEST 6 MONTHS OUTPATIENT MONITOR LYTES,RENAL FUNCTION DR GARNER
[2020-06-23 08:17] LABS: BILIRUBIN,TOTAL 0.6 mg/dL (0.2-1); BLOOD UREA NITROGEN 56.5 mg/dL (7-18); CALCIUM 8.3 mg/dL (8.5-10.1); CREATININE 2.9 mg/dL (0.55-1.3); POTASSIUM 4.3 mmol/L (3.5-5.1); TOT PROT 6.9 g/dl (6.4-8.2)
[2020-06-23] MEDS: TAMSULOSIN HCL 0.4 MG CAP PO SCH (09:44)
[2020-06-23] MEDS: APIXABAN 2.5 MG TABLET PO SCH ×2 (09:44→21:58)
--- NOTE | 2020-06-23 09:47 | PN ---
Progress Note, Physician History of Present Illness: 84 yo male with pmh hi of CKD, HLD, CAD, H/o high degree HB s/p PPM placement 2011, replacement 2018, DM, CHF, Gout, Anemia, GIB, s/p CCY presents to the ED for chest pain and cough that started two weeks ago. Pt speaks vincentian so daughter translated. PT explains he has been having chest pain and cough and was seen in the ED last week. Pt was given azithromycin and dc. PT explains cough wi th productive yellow sputum was worsening and chest pain that has started to radiate to the back. Pt explains chest pain is sharp and pressure like and is 8/10 in pain. Pt explains it is associated with SOB and worsening with cough. 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 Pt is also on clindamycin since April 30 due to an abdominal infection in April but those symptoms have subsided. PT denies nausea, vomiting, emesis, diarrhea, lightheadedness, fevers, chills. PMH: CKD, HLD, CAD, H/o high DM, CHF, Gout, Anemia, GIB PSH: stents, pacemaker Allergies: denies Social: 125 pack year history; social alcohol drinker; denies drugs PCP: Dr. Don Patterson - Current Medication List Current Medications: Active Medications Apixaban (Eliquis -) 2.5 mg PO BID [facility] Last Admin: 06/23/20 09:44 Dose: 2.5 mg Documented by: Atorvastatin Calcium (Lipitor -) 20 mg PO HS [facility] Last Admin: 06/22/20 23:31 Dose: 20 mg Documented by: Guaifenesin (Robitussin -) 5 ml PO Q6H PRN PRN Reason: COUGH Last Admin: 06/22/20 20:42 Dose: 5 ml Documented by: Meclizine HCl (Antivert -) 25 mg PO DAILY PRN PRN Reason: dizziness Metoprolol Succinate (Toprol Xl -) 50 mg PO DAILY [facility] Last Admin: 06/23/20 09:44 Dose: 50 mg Documented by: Tamsulosin HCl (Flomax -) 0.4 mg PO DAILY@0830 [facility] Last Admin: 06/23/20 09:44 Dose: 0.4 mg Documented by: - Objective Vital Signs: Vital Signs Temperature 98.7 F 06/23/20 09:26 Pulse Rate 70 06/23/20 09:26 Respiratory Rate 18 06/23/20 09:26 Blood Pressure 116/65 06/23/20 09:26 O2 Sat by Pulse Oximetry (%) 96 06/23/20 09:26 Eyes: Yes: WNL, Conjunctiva Clear, EOM Intact HENT: Yes: WNL, Atraumatic, Normocephalic Neck: Yes: WNL, Supple, Trachea Midline Cardiovascular: Yes: WNL, Regular Rate and Rhythm Respiratory: Yes: WNL, Regular, CTA Bilaterally Gastrointestinal: Yes: WNL, Normal Bowel Sounds Genitourinary: Yes: WNL Musculoskeletal: Yes: WNL Extremities: Yes: WNL Edema: No Integumentary: Yes: WNL Neurological: Yes: WNL, Alert, Oriented ...Motor Strength: WNL Psychiatric: Yes: WNL Labs: CBC, BMP 06/22/20 05:30 06/23/20 05:38 INR, PTT INR 2.01 (0.83-1.09) H 06/17/20 11:00 Problem List - Problems (1) Chest pain Code(s): R07.9 - CHEST PAIN, UNSPECIFIED Qualifiers: Chest pain type: unspecified Qualified Code(s): R07.9 - Chest pain, unspecified (2) Abdominal pain Code(s): R10.9 - UNSPECIFIED ABDOMINAL PAIN (3) Acid reflux Code(s): K21.9 - GASTRO-ESOPHAGEAL REFLUX DISEASE WITHOUT ESOPHAGITIS (4) Acute exacerbation of CHF (congestive heart failure) Code(s): I50.9 - HEART FAILURE, UNSPECIFIED (5) Acute on chronic systolic and diastolic heart failure, NYHA class 1 Code(s): I50.43 - ACUTE ON CHRONIC COMBINED SYSTOLIC AND DIASTOLIC HRT FAIL (6) Acute pancreatitis Code(s): K85.90 - ACUTE PANCREATITIS WITHOUT NECROSIS OR INFECTION, UNSP Qualifiers: (7) Anemia Code(s): D64.9 - ANEMIA, UNSPECIFIED (8) Arthritis of shoulder region, right, degenerative Code(s): M19.011 - PRIMARY OSTEOARTHRITIS, RIGHT SHOULDER (9) Atypical chest pain Code(s): R07.89 - OTHER CHEST PAIN (10) BPH (benign prostatic hyperplasia) Code(s): N40.0 - BENIGN PROSTATIC HYPERPLASIA WITHOUT LOWER URINRY TRACT SYMP (11) Bronchitis Code(s): J40 - BRONCHITIS, NOT SPECIFIED ACUTE OR CHRONIC (12) CAD (coronary artery disease) Code(s): I25.10 - ATHSCL HEART DISEASE OF [place] CORONARY ARTERY W/O ANG PCTRS Qualifiers: Coronary Disease-Associated Artery/Lesion type: [place] artery [place] vs. transplanted heart: [place] heart Associated angina: without angina Qualified Code(s): I25.10 - Atherosclerotic heart disease of [place] coronary artery without angina pectoris (13) Chronic kidney disease Code(s): N18.9 - CHRONIC KIDNEY DISEASE, UNSPECIFIED Qualifiers: Chronic kidney disease stage: stage 3 (moderate) Qualified Code(s): N18.3 - Chronic kidney disease, stage 3 (moderate) (14) Cough Code(s): R05 - COUGH (15) DM (diabetes mellitus), type 2 with renal complications Code(s): E11.29 - TYPE 2 DIABETES MELLITUS W OTH DIABETIC KIDNEY COMPLICATION Qualifiers: Diabetes mellitus intermediate accountant insulin use: without nursing home use Chronic kidney disease stage: stage 3 (moderate) (16) Diabetes mellitus type II, controlled Code(s): E11.9 - TYPE 2 DIABETES MELLITUS WITHOUT COMPLICATIONS Qualifiers: (17) Diarrhea Code(s): R19.7 - DIARRHEA, UNSPECIFIED (18) Dizziness Code(s): R42 - DIZZINESS AND GIDDINESS (19) Dyspnea Code(s): R06.00 - DYSPNEA, UNSPECIFIED (20) Early satiety Code(s): R68.81 - EARLY SATIETY (21) Elevated CEA Code(s): R97.0 - ELEVATED CARCINOEMBRYONIC ANTIGEN [CEA] (22) Elevated lipase Code(s): R74.8 - ABNORMAL LEVELS OF OTHER SERUM ENZYMES (23) Elevated troponin Code(s): R79.89 - OTHER SPECIFIED ABNORMAL FINDINGS OF BLOOD CHEMISTRY (24) [place] cardiac risk >20% in next 10 years Code(s): Z91.89 - OTH PERSONAL RISK FACTORS, NOT ELSEWHERE CLASSIFIED (25) Gout Code(s): M10.9 - GOUT, UNSPECIFIED (26) Gout attack Code(s): M10.9 - GOUT, UNSPECIFIED (27) HLD (hyperlipidemia) Code(s): E78.5 - HYPERLIPIDEMIA, UNSPECIFIED Qualifiers: Hyperlipidemia type: pure hypercholesterolemia Qualified Code(s): E78.00 - Pure hypercholesterolemia, unspecified; E78.0 - Pure hypercholesterolemia (28) Hypertension Code(s): I10 - ESSENTIAL (PRIMARY) HYPERTENSION Qualifiers: Hypertension type: essential hypertension Qualified Code(s): I10 - Essential (primary) hypertension (29) Iron deficiency anemia Code(s): D50.9 - IRON DEFICIENCY ANEMIA, UNSPECIFIED (30) Left knee pain Code(s): M25.562 - PAIN IN LEFT KNEE (31) Lower back pain Code(s): M54.5 - LOW BACK PAIN (32) NSVT (nonsustained ventricular tachycardia) Code(s): I47.2 - VENTRICULAR TACHYCARDIA (33) Osteoarthritis Code(s): M19.90 - UNSPECIFIED OSTEOARTHRITIS, UNSPECIFIED SITE (34) PAF (paroxysmal atrial fibrillation) Code(s): I48.0 - PAROXYSMAL ATRIAL FIBRILLATION (35) Pacemaker Code(s): Z95.0 - PRESENCE OF CARDIAC PACEMAKER (36) Pharyngitis Code(s): J02.9 - ACUTE PHARYNGITIS, UNSPECIFIED (37) Pneumonia Code(s): J18.9 - PNEUMONIA, UNSPECIFIED ORGANISM Qualifiers: (38) SOB (shortness of breath) Code(s): R06.02 - SHORTNESS OF BREATH (39) Stented coronary artery Code(s): Z95.5 - PRESENCE OF CORONARY ANGIOPLASTY IMPLANT AND GRAFT (40) Vertigo Code(s): R42 - DIZZINESS AND GIDDINESS (41) Volume overload Code(s): E87.70 - FLUID OVERLOAD, UNSPECIFIED Assessment/Plan 1. Atypical Chest pain (constant for 3 days, unaffected by exertion) 2. Chronic low normal systolic/diastolic CHF 3. PAF->SR on eliquis; beta blockers 4. CAD s/p stent with demand ischemia, Hx coronary angiogram 2014: patent coronary stent; no ischemia on 2019 stress MIBI. 5. CKD 6. HLD 7. High degree HB s/p PPM placement 2011, replacement 2018 or 2019 8. Chemical pancreatitis h/o cholecystectomy 9. Type 2 DM 10. Gout 11. GIB 12. 6.5 MM RLL nodule 13. hx vertigo 14. known hx NSVT; EP study showed no inducible VT Plan: 1. Trops plateaued; mildly elevated since at least 2017. 2. Lasix 40 qd with monitor diuretic response, renal fxn and electrolytes 3. Continue Eliquis 2.5 bid, Lipitor 20 qd, lisinopril 5 qd, Toprol XL [address] surveillance of pulmonary nodule in 6 months per pulmonary 5. Observe off abx per ID 6. d/c telemetry 7. Increase atorvastatin to 40 mg daily (LDL 76 mg/dL). 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 Humphrey, notes last office visit 01/2020: Dizziness (likely vertigo) improved; hx moderate carotid artery stenosis treated with statin and ASA (no stenosis on most recent US). Hx PAF; NSVT (no inducible VT on EP study). Hx LAD stent, which was patent on most recent coronary angiogram. Known OM disease; pt reluctant to proceed with further angiogram. Planned for repeat stress MIBI as outpatient.
--- NOTE | 2020-06-23 10:49 | PN ---
Progress Note, Physician History of Present Illness: no new issues stable - Current Medication List Current Medications: Active Medications Apixaban (Eliquis -) 2.5 mg PO BID [facility] Last Admin: 06/23/20 09:44 Dose: 2.5 mg Documented by: Atorvastatin Calcium (Lipitor -) 20 mg PO HS [facility] Last Admin: 06/22/20 23:31 Dose: 20 mg Documented by: Guaifenesin (Robitussin -) 5 ml PO Q6H PRN PRN Reason: COUGH Last Admin: 06/22/20 20:42 Dose: 5 ml Documented by: Meclizine HCl (Antivert -) 25 mg PO DAILY PRN PRN Reason: dizziness Metoprolol Succinate (Toprol Xl -) 50 mg PO DAILY [facility] Last Admin: 06/23/20 09:44 Dose: 50 mg Documented by: Tamsulosin HCl (Flomax -) 0.4 mg PO DAILY@0830 [facility] Last Admin: 06/23/20 09:44 Dose: 0.4 mg Documented by: - Objective Vital Signs: Vital Signs Temperature 98.7 F 06/23/20 09:26 Pulse Rate 70 06/23/20 09:26 Respiratory Rate 18 06/23/20 09:26 Blood Pressure 116/65 06/23/20 09:26 O2 Sat by Pulse Oximetry (%) 96 06/23/20 09:26 Constitutional: Yes: No Distress, Calm Cardiovascular: Yes: S1, S2 Respiratory: Yes: Regular, CTA Bilaterally Gastrointestinal: Yes: Normal Bowel Sounds, Soft Musculoskeletal: Yes: WNL Extremities: Yes: WNL Neurological: Yes: Alert, Oriented Psychiatric: Yes: Alert, Oriented Labs: CBC, BMP 06/22/20 05:30 06/23/20 05:38 INR, PTT INR 2.01 (0.83-1.09) H 06/17/20 11:00 Assessment/Plan Problem List - Problems (1) Lung nodule seen on imaging study Code(s): R91.1 - SOLITARY PULMONARY NODULE (2) Chest pain Code(s): R07.9 - CHEST PAIN, UNSPECIFIED (3) Acute on chronic systolic and diastolic heart failure, NYHA class 1 Code(s): I50.43 - ACUTE ON CHRONIC COMBINED SYSTOLIC AND DIASTOLIC HRT FAIL (4) Anemia Code(s): D64.9 - ANEMIA, UNSPECIFIED (5) BPH (benign prostatic hyperplasia) Code(s): N40.0 - BENIGN PROSTATIC HYPERPLASIA WITHOUT LOWER URINRY TRACT SYMP (6) CAD (coronary artery disease) Code(s): I25.10 - ATHSCL HEART DISEASE OF [place] CORONARY ARTERY W/O ANG PCTRS Qualifiers: (7) Cough Code(s): R05 - COUGH (8) HLD (hyperlipidemia) Code(s): E78.5 - HYPERLIPIDEMIA, UNSPECIFIED (9) Hypertension Code(s): I10 - ESSENTIAL (PRIMARY) HYPERTENSION Qualifiers: pancreatitis lipase has increased plan continue current mgmt rest as per the team
--- NOTE | 2020-06-23 11:04 | PN ---
Progress Note, Physician History of Present Illness: Pt seen and examined at bedside. He is awake and alert. he denies shortness of breath or chest pain. - Current Medication List Current Medications: Active Medications Apixaban (Eliquis -) 2.5 mg PO BID [facility] Last Admin: 06/23/20 09:44 Dose: 2.5 mg Documented by: Atorvastatin Calcium (Lipitor -) 20 mg PO HS [facility] Last Admin: 06/22/20 23:31 Dose: 20 mg Documented by: Guaifenesin (Robitussin -) 5 ml PO Q6H PRN PRN Reason: COUGH Last Admin: 06/22/20 20:42 Dose: 5 ml Documented by: Meclizine HCl (Antivert -) 25 mg PO DAILY PRN PRN Reason: dizziness Metoprolol Succinate (Toprol Xl -) 50 mg PO DAILY [facility] Last Admin: 06/23/20 09:44 Dose: 50 mg Documented by: Tamsulosin HCl (Flomax -) 0.4 mg PO DAILY@0830 [facility] Last Admin: 06/23/20 09:44 Dose: 0.4 mg Documented by: - Objective Vital Signs: Vital Signs Temperature 98.7 F 06/23/20 09:26 Pulse Rate 70 06/23/20 09:26 Respiratory Rate 18 06/23/20 09:26 Blood Pressure 116/65 06/23/20 09:26 O2 Sat by Pulse Oximetry (%) 96 06/23/20 09:26 Constitutional: Yes: Calm Eyes: Yes: Conjunctiva Clear HENT: Yes: Atraumatic Neck: Yes: Supple Cardiovascular: Yes: S1, S2 Respiratory: Yes: CTA Bilaterally Gastrointestinal: Yes: Normal Bowel Sounds, Soft Genitourinary: Yes: WNL Musculoskeletal: Yes: WNL Edema: Yes Edema: LLE: Trace, RLE: Trace Neurological: Yes: Oriented Psychiatric: Yes: Oriented Labs: CBC, BMP 06/22/20 05:30 06/23/20 05:38 INR, PTT INR 2.01 (0.83-1.09) H 06/17/20 11:00 Problem List - Problems (1) Chest pain Code(s): R07.9 - CHEST PAIN, UNSPECIFIED Qualifiers: Chest pain type: unspecified Qualified Code(s): R07.9 - Chest pain, unspecified (2) Chronic kidney disease Code(s): N18.9 - CHRONIC KIDNEY DISEASE, UNSPECIFIED Qualifiers: Chronic kidney disease stage: stage 3 (moderate) Qualified Code(s): N18.3 - Chronic kidney disease, stage 3 (moderate) Assessment/Plan Current Medications Generic Name Dose Route Start Last Admin Trade Name Freq PRN Reason Stop Dose Admin Apixaban 2.5 mg 06/18/20 00:45 06/23/20 09:44 Eliquis - PO 2.5 mg BID [facility] Administration Atorvastatin Calcium 20 mg 06/18/20 22:00 06/22/20 23:31 Lipitor - PO 20 mg HS [facility] Administration Guaifenesin 5 ml 06/20/20 23:24 06/22/20 20:42 Robitussin - PO 5 ml Q6H PRN Administration COUGH Meclizine HCl 25 mg 06/18/20 00:34 Antivert - PO DAILY PRN dizziness Metoprolol Succinate 50 mg 06/18/20 10:00 06/23/20 09:44 Toprol Xl - PO 50 mg DAILY [facility] Administration Tamsulosin HCl 0.4 mg 06/18/20 08:30 06/23/20 09:44 Flomax - PO 0.4 mg DAILY@0830 [facility] Administration Impression 1. CKD 2. chest pain 3. cough 4. CHF 5. cad 6. hld 7. gout Plan - cont to monitor renal function - andrez and lasix on hold - will need outpt follow up - monitor bp - pulm follow up - avoid nsaids
[2020-06-23] MEDS: guaiFENesin 200 MG/10 ML 10 ML UNIT-DOSE CUPS PO PRN (15:30)
--- NOTE | 2020-06-23 20:14 | PN ---
Progress Note, Physician History of Present Illness: No new complaints - Current Medication List Current Medications: Active Medications Apixaban (Eliquis -) 2.5 mg PO BID [facility] Last Admin: 06/23/20 09:44 Dose: 2.5 mg Documented by: Atorvastatin Calcium (Lipitor -) 20 mg PO HS [facility] Last Admin: 06/22/20 23:31 Dose: 20 mg Documented by: Guaifenesin (Robitussin -) 5 ml PO Q6H PRN PRN Reason: COUGH Last Admin: 06/23/20 15:30 Dose: 5 ml Documented by: Meclizine HCl (Antivert -) 25 mg PO DAILY PRN PRN Reason: dizziness Metoprolol Succinate (Toprol Xl -) 50 mg PO DAILY [facility] Last Admin: 06/23/20 09:44 Dose: 50 mg Documented by: Tamsulosin HCl (Flomax -) 0.4 mg PO DAILY@0830 [facility] Last Admin: 06/23/20 09:44 Dose: 0.4 mg Documented by: - Objective Vital Signs: Vital Signs Temperature 97.4 F L 06/23/20 18:00 Pulse Rate 70 06/23/20 18:00 Respiratory Rate 18 06/23/20 18:00 Blood Pressure 135/78 06/23/20 18:00 O2 Sat by Pulse Oximetry (%) 99 06/23/20 18:00 Cardiovascular: Yes: WNL, Regular Rate and Rhythm Respiratory: Yes: WNL, Regular, CTA Bilaterally Gastrointestinal: Yes: WNL, Normal Bowel Sounds, Soft Labs: CBC, BMP 06/22/20 05:30 06/23/20 05:38 INR, PTT INR 2.01 (0.83-1.09) H 06/17/20 11:00 Problem List - Problems (1) Chronic kidney disease Assessment/Plan: Acute on chronic renal failure ?Due to lasix Lasix on hold Check labs in am Possible dc planning for am As per Renal Code(s): N18.9 - CHRONIC KIDNEY DISEASE, UNSPECIFIED Qualifiers: Chronic kidney disease stage: stage 3 (moderate) Qualified Code(s): N18.3 - Chronic kidney disease, stage 3 (moderate) (2) Chest pain Assessment/Plan: Troponin negative No arrhythmias while on tele Code(s): R07.9 - CHEST PAIN, UNSPECIFIED Qualifiers: Chest pain type: unspecified Qualified Code(s): R07.9 - Chest pain, unspecified (3) Lung nodule seen on imaging study Assessment/Plan: Repeat CT scan chest as oupt in 3 months Code(s): R91.1 - SOLITARY PULMONARY NODULE (4) Anemia Assessment/Plan: H/H stable Code(s): D64.9 - ANEMIA, UNSPECIFIED (5) Diabetes mellitus type II, controlled Code(s): E11.9 - TYPE 2 DIABETES MELLITUS WITHOUT COMPLICATIONS Qualifiers: (6) Elevated lipase Assessment/Plan: CT scan abd was negative for any pancreatitis Code(s): R74.8 - ABNORMAL LEVELS OF OTHER SERUM ENZYMES (7) Gout Code(s): M10.9 - GOUT, UNSPECIFIED (8) Hypertension Assessment/Plan: BP stable Code(s): I10 - ESSENTIAL (PRIMARY) HYPERTENSION Qualifiers: Hypertension type: essential hypertension Qualified Code(s): I10 - Essential (primary) hypertension (9) HLD (hyperlipidemia) Assessment/Plan: Cont lipitor Code(s): E78.5 - HYPERLIPIDEMIA, UNSPECIFIED Qualifiers: Hyperlipidemia type: pure hypercholesterolemia Qualified Code(s): E78.00 - Pure hypercholesterolemia, unspecified; E78.0 - Pure hypercholesterolemia (10) PAF (paroxysmal atrial fibrillation) Assessment/Plan: Cont eliquis Heart rate controlled Code(s): I48.0 - PAROXYSMAL ATRIAL FIBRILLATION (11) Pacemaker Code(s): Z95.0 - PRESENCE OF CARDIAC PACEMAKER (12) Osteoarthritis Code(s): M19.90 - UNSPECIFIED OSTEOARTHRITIS, UNSPECIFIED SITE (13) BPH (benign prostatic hyperplasia) Code(s): N40.0 - BENIGN PROSTATIC HYPERPLASIA WITHOUT LOWER URINRY TRACT SYMP
[2020-06-23] MEDS: ATORVASTATIN CA 20 MG TABLET (FP) PO SCH (21:58)
[2020-06-24] MEDS: guaiFENesin 200 MG/10 ML 10 ML UNIT-DOSE CUPS PO PRN (02:36)
--- NOTE | 2020-06-24 07:48 | PN ---
Progress Note, Physician History of Present Illness: pulmonary alert,feeling better,less cough,-cp - Current Medication List Current Medications: Active Medications Apixaban (Eliquis -) 2.5 mg PO BID [facility] Last Admin: 06/23/20 21:58 Dose: 2.5 mg Documented by: Atorvastatin Calcium (Lipitor -) 20 mg PO HS [facility] Last Admin: 06/23/20 21:58 Dose: 20 mg Documented by: Guaifenesin (Robitussin -) 5 ml PO Q6H PRN PRN Reason: COUGH Last Admin: 06/24/20 02:36 Dose: 5 ml Documented by: Meclizine HCl (Antivert -) 25 mg PO DAILY PRN PRN Reason: dizziness Metoprolol Succinate (Toprol Xl -) 50 mg PO DAILY [facility] Last Admin: 06/23/20 09:44 Dose: 50 mg Documented by: Tamsulosin HCl (Flomax -) 0.4 mg PO DAILY@0830 [facility] Last Admin: 06/23/20 09:44 Dose: 0.4 mg Documented by: - Objective Vital Signs: Vital Signs Temperature 97.9 F 06/24/20 07:40 Pulse Rate 71 06/24/20 07:40 Respiratory Rate 18 06/24/20 07:40 Blood Pressure 134/76 06/24/20 07:40 O2 Sat by Pulse Oximetry (%) 97 06/24/20 07:40 Constitutional: Yes: Well Nourished, Calm Eyes: Yes: WNL HENT: Yes: WNL Neck: Yes: WNL Cardiovascular: Yes: Regular Rate and Rhythm, S1, S2 Respiratory: Yes: CTA Bilaterally Gastrointestinal: Yes: Normal Bowel Sounds, Soft Extremities: Yes: WNL Edema: No Labs: CBC, BMP INR, PTT INR 2.01 (0.83-1.09) H 06/17/20 11:00 Assessment/Plan Problem List - Problems (1) Lung nodule seen on imaging study Code(s): R91.1 - SOLITARY PULMONARY NODULE (2) Chest pain Code(s): R07.9 - CHEST PAIN, UNSPECIFIED (3) Acute on chronic systolic and diastolic heart failure, NYHA class 1 Code(s): I50.43 - ACUTE ON CHRONIC COMBINED SYSTOLIC AND DIASTOLIC HRT FAIL (4) Anemia Code(s): D64.9 - ANEMIA, UNSPECIFIED (5) BPH (benign prostatic hyperplasia) Code(s): N40.0 - BENIGN PROSTATIC HYPERPLASIA WITHOUT LOWER URINRY TRACT SYMP (6) CAD (coronary artery disease) Code(s): I25.10 - ATHSCL HEART DISEASE OF [place] CORONARY ARTERY W/O ANG PCTRS Qualifiers: (7) Cough Code(s): R05 - COUGH (8) HLD (hyperlipidemia) Code(s): E78.5 - HYPERLIPIDEMIA, UNSPECIFIED (9) Hypertension Code(s): I10 - ESSENTIAL (PRIMARY) HYPERTENSION Qualifiers: ? PANCREATITIS + TROPONIN ACUTE ON CHRONIC KIDNEY INJURY Assessment/Plan LUNG NODULE NOTED ON CXR 6.[address] CHEST 6 MONTHS OUTPATIENT MONITOR LYTES,RENAL FUNCTION DR GARNER
[2020-06-24 09:27] VITALS: PULSE 70
[2020-06-24] MEDS: APIXABAN 2.5 MG TABLET PO SCH (10:50)
[2020-06-24] MEDS: TAMSULOSIN HCL 0.4 MG CAP PO SCH (10:50)
--- NOTE | 2020-06-24 13:53 | PN ---
Progress Note, Physician - Current Medication List Current Medications: Active Medications Apixaban (Eliquis -) 2.5 mg PO BID [facility] Last Admin: 06/24/20 10:50 Dose: 2.5 mg Documented by: Atorvastatin Calcium (Lipitor -) 20 mg PO HS [facility] Last Admin: 06/23/20 21:58 Dose: 20 mg Documented by: Guaifenesin (Robitussin -) 5 ml PO Q6H PRN PRN Reason: COUGH Last Admin: 06/24/20 02:36 Dose: 5 ml Documented by: Meclizine HCl (Antivert -) 25 mg PO DAILY PRN PRN Reason: dizziness Metoprolol Succinate (Toprol Xl -) 50 mg PO DAILY [facility] Last Admin: 06/24/20 10:50 Dose: 50 mg Documented by: Tamsulosin HCl (Flomax -) 0.4 mg PO DAILY@0830 [facility] Last Admin: 06/24/20 10:50 Dose: 0.4 mg Documented by: - Objective Vital Signs: Vital Signs Temperature 98.3 F 06/24/20 09:26 Pulse Rate 70 06/24/20 09:26 Respiratory Rate 18 06/24/20 09:26 Blood Pressure 125/70 06/24/20 09:26 O2 Sat by Pulse Oximetry (%) 97 06/24/20 09:43 Labs: CBC, BMP 06/22/20 05:30 06/23/20 05:38 INR, PTT INR 2.01 (0.83-1.09) H 06/17/20 11:00
--- NOTE | 2020-06-24 14:16 | PN ---
Progress Note, Physician History of Present Illness: Pt seen and examined at bedside. He is awake and alert. he denies shortness of breath. - Current Medication List Current Medications: Active Medications Apixaban (Eliquis -) 2.5 mg PO BID [facility] Last Admin: 06/24/20 10:50 Dose: 2.5 mg Documented by: Atorvastatin Calcium (Lipitor -) 20 mg PO HS [facility] Last Admin: 06/23/20 21:58 Dose: 20 mg Documented by: Guaifenesin (Robitussin -) 5 ml PO Q6H PRN PRN Reason: COUGH Last Admin: 06/24/20 02:36 Dose: 5 ml Documented by: Meclizine HCl (Antivert -) 25 mg PO DAILY PRN PRN Reason: dizziness Metoprolol Succinate (Toprol Xl -) 50 mg PO DAILY [facility] Last Admin: 06/24/20 10:50 Dose: 50 mg Documented by: Tamsulosin HCl (Flomax -) 0.4 mg PO DAILY@0830 [facility] Last Admin: 06/24/20 10:50 Dose: 0.4 mg Documented by: - Objective Vital Signs: Vital Signs Temperature 98.3 F 06/24/20 09:26 Pulse Rate 70 06/24/20 09:26 Respiratory Rate 18 06/24/20 09:26 Blood Pressure 125/70 06/24/20 09:26 O2 Sat by Pulse Oximetry (%) 97 06/24/20 09:43 Constitutional: Yes: Calm Eyes: Yes: Conjunctiva Clear HENT: Yes: Atraumatic Neck: Yes: Supple Cardiovascular: Yes: S1, S2 Respiratory: Yes: CTA Bilaterally Gastrointestinal: Yes: Normal Bowel Sounds, Soft Genitourinary: Yes: WNL Musculoskeletal: Yes: WNL Edema: No Neurological: Yes: Oriented Psychiatric: Yes: Oriented Labs: CBC, BMP 06/22/20 05:30 06/23/20 05:38 INR, PTT INR 2.01 (0.83-1.09) H 06/17/20 11:00 Problem List - Problems (1) Chest pain Code(s): R07.9 - CHEST PAIN, UNSPECIFIED Qualifiers: Chest pain type: unspecified Qualified Code(s): R07.9 - Chest pain, unspecified (2) Chronic kidney disease Code(s): N18.9 - CHRONIC KIDNEY DISEASE, UNSPECIFIED Qualifiers: Chronic kidney disease stage: stage 3 (moderate) Qualified Code(s): N18.3 - Chronic kidney disease, stage 3 (moderate) Assessment/Plan Current Medications Generic Name Dose Route Start Last Admin Trade Name Freq PRN Reason Stop Dose Admin Apixaban 2.5 mg 06/18/20 00:45 06/24/20 10:50 Eliquis - PO 2.5 mg BID [facility] Administration Atorvastatin Calcium 20 mg 06/18/20 22:00 06/23/20 21:58 Lipitor - PO 20 mg HS [facility] Administration Guaifenesin 5 ml 06/20/20 23:24 06/24/20 02:36 Robitussin - PO 5 ml Q6H PRN Administration COUGH Meclizine HCl 25 mg 06/18/20 00:34 Antivert - PO DAILY PRN dizziness Metoprolol Succinate 50 mg 06/18/20 10:00 06/24/20 10:50 Toprol Xl - PO 50 mg DAILY [facility] Administration Tamsulosin HCl 0.4 mg 06/18/20 08:30 06/24/20 10:50 Flomax - PO 0.4 mg DAILY@0830 [facility] Administration Impression 1. CKD 2. chest pain 3. cough 4. CHF 5. cad 6. hld 7. gout Plan - renal function stable - cont current meds - lasix as needed - monitor bp - pulm follow up - avoid nsaids - will need outpt follow up - andrez on hold as bp was low
[2020-06-24 15:26] VITALS: BP 138/66; TEMP 97.6
== END 2020-06-24 15:44 | disposition home or self-care (01) | DRG 292 ==
LOC: SUPCPDRO 09:17 → JER 09:17 → JERBED 13:37 → J4W 15:44 → J5S 06-23 14:18
PROVIDERS: ADMIT Internal Medicine; ATTEND Internal Medicine
DX: I13.0 Hypertensive heart and chronic kidney disease with heart failure and stage 1 through stage 4 chronic kidney disease, or unspecified chronic kidney disease (principal); I50.42 Chronic combined systolic (congestive) and diastolic (congestive) heart failure; N17.9 Acute kidney failure, unspecified; I24.8 Other forms of acute ischemic heart disease; K86.1 Other chronic pancreatitis; E11.22 Type 2 diabetes mellitus with diabetic chronic kidney disease; N18.3 Chronic kidney disease, stage 3 (moderate); I48.0 Paroxysmal atrial fibrillation; I25.10 Atherosclerotic heart disease of native coronary artery without angina pectoris; E78.5 Hyperlipidemia, unspecified; M1A.9XX0 Chronic gout, unspecified, without tophus (tophi); K59.09 Other constipation; R91.1 Solitary pulmonary nodule; M19.90 Unspecified osteoarthritis, unspecified site; N40.0 Benign prostatic hyperplasia without lower urinary tract symptoms; K21.9 Gastro-esophageal reflux disease without esophagitis; Z95.0 Presence of cardiac pacemaker; Z95.5 Presence of coronary angioplasty implant and graft; Z96.653 Presence of artificial knee joint, bilateral
CPT/HCPCS: 36415; 71045-TC-FY; 71250-TC; 74176-TC; 80053; 81003; 82150; 82550; 82962; 83690; 83735; 83880; 84484; 85025; 85610; 87040; 87077; 87086; 93005; 93010; 97116-GP; 97161-GP; 99285-25; J0131; U0003

== ENCOUNTER 2021-04-14 11:38 | Inpatient (IN) | payer OTHER ==
[2021-04-14 12:56] LABS: BASO % 0.4 % (0-2.0); EOS % 1.2 % (0-4.5); HEMATOCRIT 31.4 % (35.4-49); HEMOGLOBIN 10.3 GM/dL (11.7-16.9); LYMPH % 16.4 % (8-40); MCH 33.3 pg (25.7-33.7); MCHC 32.8 g/dl (32.0-35.9); MEAN CELL VOLUME 101.4 fl (80-96); MEAN PLT VOLUME 7.7 fl (7.5-11.1); MONO % 6.8 % (3.8-10.2); NEUT % 75.2 % (42.8-82.8); PLATELET COUNT 157 10^3/uL (134-434); RDW 14.7 % (11.9-15.9); WHITE BLOOD COUNT 9.1 K/mm3 (4.0-10.0)
[2021-04-14 13:16] LABS: CHLORIDE 111 mmol/L (98-107); SODIUM 142 mmol/L (136-145)
[2021-04-14 13:18] LABS: CALCIUM 8.6 mg/dL (8.5-10.1); INR 3.07 (0.83-1.09); PROTHROMBIN TIME (PATIENT) 36.6 SEC (9.7-13.0)
[2021-04-14 13:19] LABS: ALBUMIN 3.1 g/dl (3.4-5.0); ANION GAP 4 MMOL/L (8-16); BLOOD UREA NITROGEN 40.7 mg/dL (7-18); CO2 27 mmol/L (21-32); GLUCOSE,RANDOM 117 mg/dL (74-106)
[2021-04-14 13:21] LABS: ACTIVATED PTT 38.7 SECONDS (25.2-36.5)
[2021-04-14 13:22] LABS: CREATININE 3.4 mg/dL (0.55-1.3); SGOT/AST 62 U/L (15-37); SGPT/ALT 13 U/L (13-61)
[2021-04-14 13:24] LABS: BILIRUBIN,TOTAL 0.5 mg/dL (0.2-1); TOT PROT 7.7 g/dl (6.4-8.2)
[2021-04-14 13:25] LABS: ALK PHOS 57 U/L (45-117)
[2021-04-14] MEDS ORDERED: FUROSEMIDE 40 MG/4 ML INJECTABLE VIAL IVPUSH ONE (13:29)
[2021-04-14] MEDS ORDERED: FUROSEMIDE 40 MG/4 ML INJECTABLE VIAL ONE (14:05)
[2021-04-14 14:50] LABS: CALCIUM 8.9 mg/dL (8.5-10.1)
[2021-04-14 14:51] LABS: BLOOD UREA NITROGEN 41.3 mg/dL (7-18)
[2021-04-14 14:54] LABS: CREATININE 3.3 mg/dL (0.55-1.3)
[2021-04-14] MEDS ORDERED: MECLIZINE HCL 25 MG TABLET (FP) PO PRN (17:50)
[2021-04-14 21:27] VITALS: BMI 32.9
[2021-04-14] MEDS: ATORVASTATIN CA 20 MG TABLET (FP) PO SCH (21:37)
[2021-04-14] MEDS: APIXABAN 2.5 MG TABLET PO SCH (21:37)
[2021-04-14] MEDS: TAMSULOSIN HCL 0.4 MG CAP PO SCH (21:38)
[2021-04-15 08:11] LABS: BASO % 0.2 % (0-2.0); EOS % 1.3 % (0-4.5); HEMATOCRIT 32.5 % (35.4-49); HEMOGLOBIN 10.4 GM/dL (11.7-16.9); LYMPH % 17.8 % (8-40); MCH 32.8 pg (25.7-33.7); MEAN CELL VOLUME 102.5 fl (80-96); MEAN PLT VOLUME 7.8 fl (7.5-11.1); NEUT % 72.7 % (42.8-82.8); PLATELET COUNT 173 10^3/uL (134-434); RBC 3.17 M/mm3 (4.00-5.60); RDW 14.3 % (11.9-15.9); WHITE BLOOD COUNT 7.9 K/mm3 (4.0-10.0)
[2021-04-15 08:34] LABS: CALCIUM 8.8 mg/dL (8.5-10.1)
[2021-04-15 08:35] LABS: ALBUMIN 3.1 g/dl (3.4-5.0); BLOOD UREA NITROGEN 37.9 mg/dL (7-18)
[2021-04-15 08:38] LABS: CREATININE 3.3 mg/dL (0.55-1.3)
[2021-04-15 08:40] LABS: BILIRUBIN,TOTAL 0.5 mg/dL (0.2-1); TOT PROT 7.2 g/dl (6.4-8.2)
[2021-04-15] MEDS ORDERED: ACETAMINOPHEN 325 MG TABLET (FP) PO ONE (09:15)
[2021-04-15] MEDS: FUROSEMIDE 40 MG/4 ML INJECTABLE VIAL IVPUSH SCH (09:18)
[2021-04-15] MEDS: FERROUS SO4 325 MG TABLET (FP) PO SCH ×2 (09:18→17:01)
[2021-04-15] MEDS: APIXABAN 2.5 MG TABLET PO SCH ×2 (09:18→21:12)
[2021-04-15] MEDS: TAMSULOSIN HCL 0.4 MG CAP PO SCH (09:18)
[2021-04-15] MEDS: PANTOPRAZOLE 40 MG TABLET PO SCH (09:18)
[2021-04-15] MEDS: ATORVASTATIN CA 20 MG TABLET (FP) PO SCH (21:12)
[2021-04-16] MEDS: TAMSULOSIN HCL 0.4 MG CAP PO SCH (07:48)
[2021-04-16] MEDS: FERROUS SO4 325 MG TABLET (FP) PO SCH ×2 (07:48→16:37)
[2021-04-16] MEDS: PANTOPRAZOLE 40 MG TABLET PO SCH (09:26)
[2021-04-16] MEDS: APIXABAN 2.5 MG TABLET PO SCH ×2 (09:26→22:11)
[2021-04-16] MEDS: FUROSEMIDE 40 MG/4 ML INJECTABLE VIAL IVPUSH SCH (09:26)
[2021-04-16] MEDS: ATORVASTATIN CA 20 MG TABLET (FP) PO SCH (22:11)
[2021-04-17 07:31] LABS: BASO % 0.1 % (0-2.0); EOS % 1.2 % (0-4.5); HEMATOCRIT 31.1 % (35.4-49); LYMPH % 22.2 % (8-40); MCH 32.9 pg (25.7-33.7); MCHC 32.1 g/dl (32.0-35.9); MEAN CELL VOLUME 102.3 fl (80-96); MEAN PLT VOLUME 7.6 fl (7.5-11.1); NEUT % 66.5 % (42.8-82.8); PLATELET COUNT 177 10^3/uL (134-434); RBC 3.04 M/mm3 (4.00-5.60); RDW 14.1 % (11.9-15.9); WHITE BLOOD COUNT 8.4 K/mm3 (4.0-10.0)
[2021-04-17 07:46] LABS: ALBUMIN 2.9 g/dl (3.4-5.0)
[2021-04-17 07:47] LABS: BLOOD UREA NITROGEN 38.4 mg/dL (7-18)
[2021-04-17 07:50] LABS: CREATININE 3.1 mg/dL (0.55-1.3)
[2021-04-17 07:51] LABS: BILIRUBIN,TOTAL 0.9 mg/dL (0.2-1); TOT PROT 6.8 g/dl (6.4-8.2)
[2021-04-17] MEDS: TAMSULOSIN HCL 0.4 MG CAP PO SCH (07:53)
[2021-04-17] MEDS: FERROUS SO4 325 MG TABLET (FP) PO SCH ×2 (07:53→17:20)
[2021-04-17] MEDS: APIXABAN 2.5 MG TABLET PO SCH ×2 (09:31→21:49)
[2021-04-17] MEDS: PANTOPRAZOLE 40 MG TABLET PO SCH (09:31)
[2021-04-17] MEDS: FUROSEMIDE 40 MG/4 ML INJECTABLE VIAL IVPUSH SCH (09:31)
[2021-04-17] MEDS: ATORVASTATIN CA 20 MG TABLET (FP) PO SCH (21:49)
[2021-04-18] MEDS: TAMSULOSIN HCL 0.4 MG CAP PO SCH (07:45)
[2021-04-18] MEDS: FERROUS SO4 325 MG TABLET (FP) PO SCH ×2 (07:45→17:57)
[2021-04-18] MEDS: FUROSEMIDE 40 MG/4 ML INJECTABLE VIAL IVPUSH SCH (09:46)
[2021-04-18] MEDS: PANTOPRAZOLE 40 MG TABLET PO SCH (09:46)
[2021-04-18] MEDS: APIXABAN 2.5 MG TABLET PO SCH ×2 (09:46→22:13)
[2021-04-18] MEDS ORDERED: FUROSEMIDE 40 MG/4 ML INJECTABLE VIAL IVPUSH ONE (14:08)
[2021-04-18] MEDS: ATORVASTATIN CA 20 MG TABLET (FP) PO SCH (22:13)
[2021-04-19] MEDS: FUROSEMIDE 40 MG/4 ML INJECTABLE VIAL IVPUSH SCH ×2 (09:57→14:19)
[2021-04-19] MEDS: TAMSULOSIN HCL 0.4 MG CAP PO SCH (09:57)
[2021-04-19] MEDS: APIXABAN 2.5 MG TABLET PO SCH ×2 (09:57→21:45)
[2021-04-19] MEDS: PANTOPRAZOLE 40 MG TABLET PO SCH (09:57)
[2021-04-19] MEDS: FERROUS SO4 325 MG TABLET (FP) PO SCH ×2 (09:57→17:37)
[2021-04-19] MEDS ORDERED: metoPROLOL SUCCINATE 25 MG TAB.SR.24H (FP) PO ONE (11:30)
[2021-04-19 14:09] LABS: MAGNESIUM 1.9 mg/dL (1.8-2.4)
[2021-04-19 14:13] LABS: PHOSPHOROUS 3.8 mg/dL (2.5-4.9)
[2021-04-19] MEDS: ATORVASTATIN CA 20 MG TABLET (FP) PO SCH (21:46)
[2021-04-20] MEDS: FUROSEMIDE 40 MG/4 ML INJECTABLE VIAL IVPUSH SCH ×2 (06:55→13:09)
[2021-04-20] MEDS: TAMSULOSIN HCL 0.4 MG CAP PO SCH (07:43)
[2021-04-20] MEDS: FERROUS SO4 325 MG TABLET (FP) PO SCH ×2 (07:43→16:32)
[2021-04-20 08:28] LABS: BASO % 0.3 % (0-2.0); EOS % 1.3 % (0-4.5); HEMATOCRIT 33.7 % (35.4-49); HEMOGLOBIN 10.9 GM/dL (11.7-16.9); LYMPH % 21.2 % (8-40); MCH 32.9 pg (25.7-33.7); MCHC 32.4 g/dl (32.0-35.9); MEAN CELL VOLUME 101.5 fl (80-96); MEAN PLT VOLUME 7.7 fl (7.5-11.1); MONO % 7.5 % (3.8-10.2); NEUT % 69.7 % (42.8-82.8); PLATELET COUNT 227 10^3/uL (134-434); RBC 3.32 M/mm3 (4.00-5.60); RDW 14.4 % (11.9-15.9); WHITE BLOOD COUNT 10.1 K/mm3 (4.0-10.0)
[2021-04-20 08:54] LABS: CALCIUM 8.6 mg/dL (8.5-10.1)
[2021-04-20 08:55] LABS: ALBUMIN 3.2 g/dl (3.4-5.0)
[2021-04-20 09:00] LABS: BILIRUBIN,TOTAL 0.5 mg/dL (0.2-1); TOT PROT 7.4 g/dl (6.4-8.2)
[2021-04-20] MEDS: APIXABAN 2.5 MG TABLET PO SCH ×2 (09:17→21:16)
[2021-04-20] MEDS: PANTOPRAZOLE 40 MG TABLET PO SCH (09:17)
[2021-04-20] MEDS: metoPROLOL SUCCINATE 25 MG TAB.SR.24H (FP) PO SCH (09:17)
[2021-04-20 10:30] LABS: PLATELET ESTIMATE NORMAL
[2021-04-20] MEDS: ATORVASTATIN CA 20 MG TABLET (FP) PO SCH (21:16)
[2021-04-21] MEDS: FUROSEMIDE 40 MG/4 ML INJECTABLE VIAL IVPUSH SCH ×2 (05:55→14:06)
[2021-04-21] MEDS: TAMSULOSIN HCL 0.4 MG CAP PO SCH (07:42)
[2021-04-21] MEDS: FERROUS SO4 325 MG TABLET (FP) PO SCH ×2 (07:42→17:37)
[2021-04-21 07:44] LABS: BLOOD UREA NITROGEN 42.6 mg/dL (7-18); CALCIUM 8.7 mg/dL (8.5-10.1)
[2021-04-21 07:47] LABS: CREATININE 3.1 mg/dL (0.55-1.3)
[2021-04-21] MEDS: PANTOPRAZOLE 40 MG TABLET PO SCH (09:35)
[2021-04-21] MEDS: APIXABAN 2.5 MG TABLET PO SCH ×2 (09:35→21:44)
[2021-04-21] MEDS: metoPROLOL SUCCINATE 25 MG TAB.SR.24H (FP) PO SCH (09:35)
[2021-04-21] MEDS ORDERED: SODIUM PHOSPHATE/NA BIPHOS 133 ML ENEMA RC ONE (13:40)
[2021-04-21] MEDS ORDERED: POLYETHYLENE GLYCOL 3350 119 GM BTL PO SCH (13:45)
[2021-04-21] MEDS: POLYETHYLENE GLYCOL (HEALTHYLAX) 3350 17 GM PACKET PO SCH (14:06)
[2021-04-21] MEDS: DOCUSATE SODIUM 100 MG CAPSULE (FP) PO SCH (21:44)
[2021-04-21] MEDS: ATORVASTATIN CA 20 MG TABLET (FP) PO SCH (21:44)
[2021-04-22] MEDS: FUROSEMIDE 40 MG/4 ML INJECTABLE VIAL IVPUSH SCH ×2 (05:10→13:15)
[2021-04-22] MEDS: FERROUS SO4 325 MG TABLET (FP) PO SCH ×2 (08:53→17:07)
[2021-04-22] MEDS: TAMSULOSIN HCL 0.4 MG CAP PO SCH (08:53)
[2021-04-22] MEDS: POLYETHYLENE GLYCOL (HEALTHYLAX) 3350 17 GM PACKET PO SCH (09:02)
[2021-04-22] MEDS: PANTOPRAZOLE 40 MG TABLET PO SCH (09:03)
[2021-04-22] MEDS: APIXABAN 2.5 MG TABLET PO SCH ×2 (09:03→21:32)
[2021-04-22] MEDS: metoPROLOL SUCCINATE 25 MG TAB.SR.24H (FP) PO SCH (09:03)
[2021-04-22] MEDS: ATORVASTATIN CA 20 MG TABLET (FP) PO SCH (21:32)
[2021-04-22] MEDS: DOCUSATE SODIUM 100 MG CAPSULE (FP) PO SCH (21:32)
[2021-04-23] MEDS: FUROSEMIDE 40 MG/4 ML INJECTABLE VIAL IVPUSH SCH ×2 (05:39→13:41)
[2021-04-23 07:42] LABS: BASO % 0.3 % (0-2.0); HEMATOCRIT 35.4 % (35.4-49); HEMOGLOBIN 11.5 GM/dL (11.7-16.9); LYMPH % 19.6 % (8-40); MCH 32.9 pg (25.7-33.7); MCHC 32.5 g/dl (32.0-35.9); MEAN PLT VOLUME 7.5 fl (7.5-11.1); NEUT % 71.1 % (42.8-82.8); PLATELET COUNT 240 10^3/uL (134-434); RBC 3.51 M/mm3 (4.00-5.60); RDW 14.4 % (11.9-15.9); WHITE BLOOD COUNT 10.2 K/mm3 (4.0-10.0)
[2021-04-23 08:05] LABS: CALCIUM 9.1 mg/dL (8.5-10.1)
[2021-04-23 08:06] LABS: ALBUMIN 3.3 g/dl (3.4-5.0); BLOOD UREA NITROGEN 55.3 mg/dL (7-18)
[2021-04-23 08:09] LABS: CREATININE 3.3 mg/dL (0.55-1.3)
[2021-04-23 08:11] LABS: BILIRUBIN,TOTAL 0.6 mg/dL (0.2-1); TOT PROT 7.6 g/dl (6.4-8.2)
[2021-04-23] MEDS: metoPROLOL SUCCINATE 25 MG TAB.SR.24H (FP) PO SCH (09:25)
[2021-04-23] MEDS: FERROUS SO4 325 MG TABLET (FP) PO SCH ×2 (09:25→17:06)
[2021-04-23] MEDS: PANTOPRAZOLE 40 MG TABLET PO SCH (09:25)
[2021-04-23] MEDS: APIXABAN 2.5 MG TABLET PO SCH ×2 (09:25→21:05)
[2021-04-23] MEDS: TAMSULOSIN HCL 0.4 MG CAP PO SCH (09:25)
[2021-04-23] MEDS: POLYETHYLENE GLYCOL (HEALTHYLAX) 3350 17 GM PACKET PO SCH (11:19)
[2021-04-23] MEDS: ATORVASTATIN CA 20 MG TABLET (FP) PO SCH (21:05)
[2021-04-23] MEDS: DOCUSATE SODIUM 100 MG CAPSULE (FP) PO SCH (21:05)
[2021-04-24 08:16] LABS: CALCIUM 8.8 mg/dL (8.5-10.1)
[2021-04-24 08:17] LABS: ALBUMIN 3.2 g/dl (3.4-5.0); BLOOD UREA NITROGEN 53.3 mg/dL (7-18)
[2021-04-24 08:20] LABS: CREATININE 3.4 mg/dL (0.55-1.3)
[2021-04-24 08:22] LABS: BILIRUBIN,TOTAL 0.6 mg/dL (0.2-1); TOT PROT 7.5 g/dl (6.4-8.2)
[2021-04-24] MEDS ORDERED: FUROSEMIDE 40 MG TABLET (FP) PO SCH (10:00)
[2021-04-24] MEDS: POLYETHYLENE GLYCOL (HEALTHYLAX) 3350 17 GM PACKET PO SCH (10:01)
[2021-04-24] MEDS: metoPROLOL SUCCINATE 25 MG TAB.SR.24H (FP) PO SCH (10:01)
[2021-04-24] MEDS: FERROUS SO4 325 MG TABLET (FP) PO SCH ×2 (10:01→17:13)
[2021-04-24] MEDS: TAMSULOSIN HCL 0.4 MG CAP PO SCH (10:01)
[2021-04-24] MEDS: APIXABAN 2.5 MG TABLET PO SCH ×2 (10:01→22:01)
[2021-04-24] MEDS: PANTOPRAZOLE 40 MG TABLET PO SCH (10:01)
[2021-04-24] MEDS: ATORVASTATIN CA 20 MG TABLET (FP) PO SCH (22:01)
[2021-04-24] MEDS: DOCUSATE SODIUM 100 MG CAPSULE (FP) PO SCH (22:01)
[2021-04-25 07:13] LABS: BLOOD UREA NITROGEN 52.5 mg/dL (7-18); CALCIUM 8.9 mg/dL (8.5-10.1)
[2021-04-25 07:17] LABS: CREATININE 3.3 mg/dL (0.55-1.3)
[2021-04-25] MEDS: FERROUS SO4 325 MG TABLET (FP) PO SCH ×2 (09:21→17:38)
[2021-04-25] MEDS: TAMSULOSIN HCL 0.4 MG CAP PO SCH (09:21)
[2021-04-25] MEDS: POLYETHYLENE GLYCOL (HEALTHYLAX) 3350 17 GM PACKET PO SCH (09:21)
[2021-04-25] MEDS: PANTOPRAZOLE 40 MG TABLET PO SCH (09:21)
[2021-04-25] MEDS: metoPROLOL SUCCINATE 25 MG TAB.SR.24H (FP) PO SCH (09:21)
[2021-04-25] MEDS: APIXABAN 2.5 MG TABLET PO SCH ×2 (09:21→21:22)
[2021-04-25] MEDS: ATORVASTATIN CA 20 MG TABLET (FP) PO SCH (21:22)
[2021-04-25] MEDS: DOCUSATE SODIUM 100 MG CAPSULE (FP) PO SCH (21:22)
[2021-04-26 07:29] LABS: BASO % 0.5 % (0-2.0); EOS % 1.6 % (0-4.5); HEMATOCRIT 33.5 % (35.4-49); HEMOGLOBIN 10.8 GM/dL (11.7-16.9); LYMPH % 19.7 % (8-40); MCH 33.1 pg (25.7-33.7); MCHC 32.3 g/dl (32.0-35.9); MEAN CELL VOLUME 102.5 fl (80-96); MEAN PLT VOLUME 7.7 fl (7.5-11.1); MONO % 8.6 % (3.8-10.2); NEUT % 69.6 % (42.8-82.8); PLATELET COUNT 198 10^3/uL (134-434); RBC 3.26 M/mm3 (4.00-5.60); RDW 14.5 % (11.9-15.9); WHITE BLOOD COUNT 9.9 K/mm3 (4.0-10.0)
[2021-04-26 07:41] LABS: CALCIUM 8.6 mg/dL (8.5-10.1)
[2021-04-26 07:42] LABS: ALBUMIN 2.8 g/dl (3.4-5.0)
[2021-04-26 07:45] LABS: CREATININE 3.1 mg/dL (0.55-1.3)
[2021-04-26 07:46] LABS: BILIRUBIN,TOTAL 0.6 mg/dL (0.2-1); TOT PROT 6.8 g/dl (6.4-8.2)
[2021-04-26] MEDS ORDERED: FUROSEMIDE 20 MG TABLET (FP) PO SCH (10:00)
[2021-04-26] MEDS: PANTOPRAZOLE 40 MG TABLET PO SCH (10:16)
[2021-04-26] MEDS: APIXABAN 2.5 MG TABLET PO SCH (10:24)
[2021-04-26] MEDS: POLYETHYLENE GLYCOL (HEALTHYLAX) 3350 17 GM PACKET PO SCH (10:24)
[2021-04-26] MEDS: metoPROLOL SUCCINATE 25 MG TAB.SR.24H (FP) PO SCH (10:24)
[2021-04-26] MEDS: TAMSULOSIN HCL 0.4 MG CAP PO SCH (10:24)
[2021-04-26] MEDS: FERROUS SO4 325 MG TABLET (FP) PO SCH (10:24)
[2021-04-26 15:29] VITALS: BP 123/64; PULSE 71; TEMP 98.3
[2021-04-26 16:08] LABS: THYROID STIM IMMUNOGLOBULIN <0.10 IU/L (0.00-0.55)
== END 2021-04-26 18:35 | disposition home or self-care (01) | DRG 291 ==
LOC: JER 11:38 → JERBED 13:51 → J4W 20:39
PROVIDERS: ADMIT Internal Medicine; ATTEND Internal Medicine
DX: I13.0 Hypertensive heart and chronic kidney disease with heart failure and stage 1 through stage 4 chronic kidney disease, or unspecified chronic kidney disease (principal); I50.43 Acute on chronic combined systolic (congestive) and diastolic (congestive) heart failure; I25.10 Atherosclerotic heart disease of native coronary artery without angina pectoris; Z95.0 Presence of cardiac pacemaker; E11.9 Type 2 diabetes mellitus without complications; E11.22 Type 2 diabetes mellitus with diabetic chronic kidney disease; N18.9 Chronic kidney disease, unspecified; I50.9 Heart failure, unspecified; M10.9 Gout, unspecified; E78.5 Hyperlipidemia, unspecified; E87.5 Hyperkalemia; I48.0 Paroxysmal atrial fibrillation; N18.30 Chronic kidney disease, stage 3 unspecified; D64.9 Anemia, unspecified; N40.0 Benign prostatic hyperplasia without lower urinary tract symptoms; E66.9 Obesity, unspecified; E05.90 Thyrotoxicosis, unspecified without thyrotoxic crisis or storm
CPT/HCPCS: 36415; 71045-TC-FY; 80048; 80053; 82550; 82962; 83036; 83735; 83880; 84100; 84439; 84443; 84445; 84481; 84484; 85025; 85610; 85730; 86376; 93005; 93010; 93306-TC; 99285-25; C9803; U0003; U0005

== ENCOUNTER 2021-10-12 16:51 | Inpatient (IN) | payer OTHER ==
[2021-10-12] MEDS ORDERED: FUROSEMIDE 40 MG/4 ML INJECTABLE VIAL IVPUSH ONE (18:56)
[2021-10-12] MEDS ORDERED: FUROSEMIDE 40 MG/4 ML INJECTABLE VIAL ONE (19:28)
[2021-10-12 20:05] LABS: BASO % 0.2 % (0-2.0); EOS % 0.6 % (0-4.5); HEMATOCRIT 29.4 % (35.4-49); HEMOGLOBIN 9.5 GM/dL (11.7-16.9); LYMPH % 15.9 % (8-40); MCH 32.8 pg (25.7-33.7); MCHC 32.5 g/dl (32.0-35.9); MEAN CELL VOLUME 101.2 fl (80-96); MEAN PLT VOLUME 7.7 fl (7.5-11.1); MONO % 7.3 % (3.8-10.2); PLATELET COUNT 162 10^3/uL (134-434); RBC 2.91 M/mm3 (4.00-5.60); RDW 13.6 % (11.9-15.9); WHITE BLOOD COUNT 10.3 K/mm3 (4.0-10.0)
[2021-10-12 20:12] LABS: INR 2.63 (0.83-1.09); PROTHROMBIN TIME (PATIENT) 29.8 SEC (9.7-13.0)
[2021-10-12 20:14] LABS: ACTIVATED PTT 34.6 SECONDS (25.2-36.5)
[2021-10-12 20:23] LABS: CALCIUM 8.3 mg/dL (8.5-10.1)
[2021-10-12 20:24] LABS: ALBUMIN 2.8 g/dl (3.4-5.0); BLOOD UREA NITROGEN 50.6 mg/dL (7-18)
[2021-10-12 20:28] LABS: TOT PROT 7.4 g/dl (6.4-8.2)
[2021-10-12 20:29] LABS: BILIRUBIN,TOTAL 0.4 mg/dL (0.2-1)
[2021-10-13] MEDS ORDERED: APIXABAN 2.5 MG TABLET ONE ×3 (00:25→21:29)
[2021-10-13] MEDS: APIXABAN 2.5 MG TABLET PO SCH ×3 (00:27→21:40)
[2021-10-13] MEDS ORDERED: PT OWN MED DRAWER 7, Y5N ONE (08:31)
[2021-10-13] MEDS ORDERED: INSULIN (LEVEMIR) 100 UNITS/ML UNITS SQ ONE ×2 (08:32→11:15)
[2021-10-13] MEDS: INSULIN SLIDING SCALE (NOVOLOG) 1 VIAL SQ SCH ×4 (08:34→21:41)
[2021-10-13] MEDS ORDERED: PREGABALIN 50 MG CAPSULE ONE (08:56)
[2021-10-13] MEDS ORDERED: FERROUS SO4 325 MG TABLET (FP) ONE ×2 (08:57→16:51)
[2021-10-13] MEDS ORDERED: FUROSEMIDE 40 MG/4 ML INJECTABLE VIAL ONE (08:57)
[2021-10-13] MEDS ORDERED: TAMSULOSIN HCL 0.4 MG CAP ONE (08:57)
[2021-10-13] MEDS: TAMSULOSIN HCL 0.4 MG CAP PO SCH (09:10)
[2021-10-13] MEDS: FUROSEMIDE 40 MG/4 ML INJECTABLE VIAL IVPUSH SCH (09:10)
[2021-10-13] MEDS: FERROUS SO4 325 MG TABLET (FP) PO SCH ×2 (09:10→17:07)
[2021-10-13] MEDS: PREGABALIN 50 MG CAPSULE PO SCH (09:10)
[2021-10-13] MEDS ORDERED: TORSEMIDE 20 MG TABLET (FP) PO SCH (10:00)
[2021-10-13] MEDS: INSULIN (LEVEMIR) 100 UNITS/ML UNITS SQ SCH ×2 (11:48→21:40)
[2021-10-13] MEDS ORDERED: ATORVASTATIN CA 20 MG TABLET (FP) ONE (21:28)
[2021-10-13] MEDS ORDERED: DOCUSATE SODIUM 100 MG CAPSULE (FP) PO ONE (21:29)
[2021-10-13] MEDS: DOCUSATE SODIUM 100 MG CAPSULE (FP) PO SCH (21:40)
[2021-10-13] MEDS: ATORVASTATIN CA 20 MG TABLET (FP) PO SCH (21:41)
[2021-10-14 00:46] VITALS: BMI 33.6
[2021-10-14] MEDS: INSULIN SLIDING SCALE (NOVOLOG) 1 VIAL SQ SCH ×4 (06:04→21:21)
[2021-10-14] MEDS: INSULIN (LEVEMIR) 100 UNITS/ML UNITS SQ SCH ×2 (06:36→21:20)
[2021-10-14 07:25] LABS: BASO % 0.1 % (0-2.0); EOS % 1.2 % (0-4.5); HEMATOCRIT 28.9 % (35.4-49); HEMOGLOBIN 9.5 GM/dL (11.7-16.9); LYMPH % 20.3 % (8-40); MCH 32.9 pg (25.7-33.7); MCHC 32.7 g/dl (32.0-35.9); MEAN CELL VOLUME 100.5 fl (80-96); MEAN PLT VOLUME 7.8 fl (7.5-11.1); MONO % 9.2 % (3.8-10.2); NEUT % 69.2 % (42.8-82.8); PLATELET COUNT 153 10^3/uL (134-434); RBC 2.88 M/mm3 (4.00-5.60); RDW 13.8 % (11.9-15.9); WHITE BLOOD COUNT 8.9 K/mm3 (4.0-10.0)
[2021-10-14 07:28] LABS: ALBUMIN 2.4 g/dl (3.4-5.0); BLOOD UREA NITROGEN 51.5 mg/dL (7-18); CALCIUM 8.2 mg/dL (8.5-10.1)
[2021-10-14 07:31] LABS: CREATININE 3.8 mg/dL (0.55-1.3)
[2021-10-14 07:33] LABS: BILIRUBIN,TOTAL 0.3 mg/dL (0.2-1); TOT PROT 6.8 g/dl (6.4-8.2)
[2021-10-14] MEDS: FUROSEMIDE 40 MG/4 ML INJECTABLE VIAL IVPUSH SCH (10:05)
[2021-10-14] MEDS: FERROUS SO4 325 MG TABLET (FP) PO SCH ×2 (10:05→18:41)
[2021-10-14] MEDS: APIXABAN 2.5 MG TABLET PO SCH ×2 (10:05→21:14)
[2021-10-14] MEDS: TAMSULOSIN HCL 0.4 MG CAP PO SCH (10:05)
[2021-10-14] MEDS: PREGABALIN 50 MG CAPSULE PO SCH (10:05)
[2021-10-14] MEDS ORDERED: ACETAMINOPHEN 325 MG TABLET (FP) PO ONE (13:15)
[2021-10-14] MEDS ORDERED: FUROSEMIDE 40 MG/4 ML INJECTABLE VIAL IVPUSH ONE (15:31)
[2021-10-14] MEDS: DOCUSATE SODIUM 100 MG CAPSULE (FP) PO SCH (21:13)
[2021-10-14] MEDS: ATORVASTATIN CA 20 MG TABLET (FP) PO SCH (21:14)
[2021-10-15] MEDS: INSULIN SLIDING SCALE (NOVOLOG) 1 VIAL SQ SCH ×4 (06:31→21:57)
[2021-10-15] MEDS: INSULIN (LEVEMIR) 100 UNITS/ML UNITS SQ SCH ×2 (06:31→21:58)
[2021-10-15 07:33] LABS: BASO % 0.2 % (0-2.0); EOS % 0.9 % (0-4.5); HEMATOCRIT 29.3 % (35.4-49); HEMOGLOBIN 9.9 GM/dL (11.7-16.9); LYMPH % 17.2 % (8-40); MCH 34.2 pg (25.7-33.7); MCHC 33.9 g/dl (32.0-35.9); MEAN CELL VOLUME 100.9 fl (80-96); MONO % 8.1 % (3.8-10.2); NEUT % 73.6 % (42.8-82.8); PLATELET COUNT 171 10^3/uL (134-434); WHITE BLOOD COUNT 9.6 K/mm3 (4.0-10.0)
[2021-10-15 07:55] LABS: ALBUMIN 2.5 g/dl (3.4-5.0); BLOOD UREA NITROGEN 51.1 mg/dL (7-18); CALCIUM 8.8 mg/dL (8.5-10.1)
[2021-10-15 07:58] LABS: CREATININE 3.3 mg/dL (0.55-1.3)
[2021-10-15 08:00] LABS: BILIRUBIN,TOTAL 0.6 mg/dL (0.2-1); TOT PROT 6.9 g/dl (6.4-8.2)
[2021-10-15] MEDS: TAMSULOSIN HCL 0.4 MG CAP PO SCH (08:51)
[2021-10-15] MEDS: FERROUS SO4 325 MG TABLET (FP) PO SCH ×3 (08:51→17:12)
[2021-10-15] MEDS: FUROSEMIDE 40 MG/4 ML INJECTABLE VIAL IVPUSH SCH (09:52)
[2021-10-15] MEDS: PREGABALIN 50 MG CAPSULE PO SCH (09:52)
[2021-10-15] MEDS: APIXABAN 2.5 MG TABLET PO SCH ×2 (09:52→21:55)
[2021-10-15] MEDS: ATORVASTATIN CA 20 MG TABLET (FP) PO SCH (21:55)
[2021-10-15] MEDS: DOCUSATE SODIUM 100 MG CAPSULE (FP) PO SCH (21:55)
[2021-10-16] MEDS: INSULIN (LEVEMIR) 100 UNITS/ML UNITS SQ SCH ×2 (06:16→21:41)
[2021-10-16] MEDS: INSULIN SLIDING SCALE (NOVOLOG) 1 VIAL SQ SCH ×4 (06:17→21:41)
[2021-10-16] MEDS: FERROUS SO4 325 MG TABLET (FP) PO SCH ×2 (09:42→17:17)
[2021-10-16] MEDS: PREGABALIN 50 MG CAPSULE PO SCH (09:42)
[2021-10-16] MEDS: TAMSULOSIN HCL 0.4 MG CAP PO SCH (09:42)
[2021-10-16] MEDS: FUROSEMIDE 40 MG/4 ML INJECTABLE VIAL IVPUSH SCH (09:42)
[2021-10-16] MEDS: APIXABAN 2.5 MG TABLET PO SCH ×2 (09:42→21:36)
[2021-10-16] MEDS: ATORVASTATIN CA 20 MG TABLET (FP) PO SCH (21:36)
[2021-10-16] MEDS: DOCUSATE SODIUM 100 MG CAPSULE (FP) PO SCH (21:39)
[2021-10-17] MEDS: INSULIN SLIDING SCALE (NOVOLOG) 1 VIAL SQ SCH ×4 (06:07→21:50)
[2021-10-17] MEDS: INSULIN (LEVEMIR) 100 UNITS/ML UNITS SQ SCH ×2 (06:07→21:50)
[2021-10-17 07:11] LABS: BASO % 0.2 % (0-2.0); EOS % 0.9 % (0-4.5); HEMATOCRIT 32.6 % (35.4-49); HEMOGLOBIN 10.6 GM/dL (11.7-16.9); LYMPH % 28.1 % (8-40); MCH 33.2 pg (25.7-33.7); MCHC 32.6 g/dl (32.0-35.9); MEAN CELL VOLUME 102.1 fl (80-96); MEAN PLT VOLUME 7.9 fl (7.5-11.1); MONO % 9.5 % (3.8-10.2); NEUT % 61.3 % (42.8-82.8); PLATELET COUNT 209 10^3/uL (134-434); RDW 14.1 % (11.9-15.9); WHITE BLOOD COUNT 13.9 K/mm3 (4.0-10.0)
[2021-10-17 07:30] LABS: CALCIUM 9.2 mg/dL (8.5-10.1)
[2021-10-17 07:31] LABS: BLOOD UREA NITROGEN 48.6 mg/dL (7-18)
[2021-10-17 07:35] LABS: BILIRUBIN,TOTAL 0.8 mg/dL (0.2-1); TOT PROT 8.1 g/dl (6.4-8.2)
[2021-10-17 08:08] LABS: ALBUMIN 3.1 g/dl (3.4-5.0)
[2021-10-17] MEDS: APIXABAN 2.5 MG TABLET PO SCH ×2 (10:46→21:50)
[2021-10-17] MEDS: TAMSULOSIN HCL 0.4 MG CAP PO SCH (10:47)
[2021-10-17] MEDS: FERROUS SO4 325 MG TABLET (FP) PO SCH ×2 (10:47→17:26)
[2021-10-17] MEDS: PREGABALIN 50 MG CAPSULE PO SCH (10:47)
[2021-10-17] MEDS: FUROSEMIDE 40 MG/4 ML INJECTABLE VIAL IVPUSH SCH (10:47)
[2021-10-17] MEDS ORDERED: ACETAMINOPHEN 325 MG TABLET (FP) PO ONE (14:15)
[2021-10-17] MEDS: DOCUSATE SODIUM 100 MG CAPSULE (FP) PO SCH (21:46)
[2021-10-17] MEDS: ATORVASTATIN CA 20 MG TABLET (FP) PO SCH (21:50)
[2021-10-18] MEDS: INSULIN (LEVEMIR) 100 UNITS/ML UNITS SQ SCH ×2 (06:28→21:57)
[2021-10-18] MEDS: INSULIN SLIDING SCALE (NOVOLOG) 1 VIAL SQ SCH ×4 (06:29→21:57)
[2021-10-18] MEDS: FUROSEMIDE 40 MG/4 ML INJECTABLE VIAL IVPUSH SCH (10:39)
[2021-10-18] MEDS: TAMSULOSIN HCL 0.4 MG CAP PO SCH (10:40)
[2021-10-18] MEDS: PREGABALIN 50 MG CAPSULE PO SCH (10:40)
[2021-10-18] MEDS: FERROUS SO4 325 MG TABLET (FP) PO SCH ×2 (10:40→17:26)
[2021-10-18] MEDS: APIXABAN 2.5 MG TABLET PO SCH ×2 (10:40→21:57)
[2021-10-18] MEDS: DOCUSATE SODIUM 100 MG CAPSULE (FP) PO SCH (21:57)
[2021-10-18] MEDS: ATORVASTATIN CA 20 MG TABLET (FP) PO SCH (21:57)
[2021-10-18] MEDS ORDERED: ACETAMINOPHEN 325 MG TABLET (FP) PO PRN (22:11)
[2021-10-19] MEDS: INSULIN (LEVEMIR) 100 UNITS/ML UNITS SQ SCH ×2 (06:34→22:15)
[2021-10-19] MEDS: INSULIN SLIDING SCALE (NOVOLOG) 1 VIAL SQ SCH ×4 (06:34→22:15)
[2021-10-19 07:45] LABS: CALCIUM 8.5 mg/dL (8.5-10.1); MAGNESIUM 2.3 mg/dL (1.8-2.4)
[2021-10-19 07:47] LABS: ALBUMIN 2.5 g/dl (3.4-5.0); BLOOD UREA NITROGEN 58.9 mg/dL (7-18)
[2021-10-19 07:49] LABS: CREATININE 3.1 mg/dL (0.55-1.3)
[2021-10-19 07:50] LABS: BILIRUBIN,TOTAL 0.6 mg/dL (0.2-1)
[2021-10-19] MEDS: PREGABALIN 50 MG CAPSULE PO SCH ×2 (08:25→10:33)
[2021-10-19] MEDS: APIXABAN 2.5 MG TABLET PO SCH ×2 (10:32→21:53)
[2021-10-19] MEDS: TAMSULOSIN HCL 0.4 MG CAP PO SCH (10:32)
[2021-10-19] MEDS: FERROUS SO4 325 MG TABLET (FP) PO SCH ×2 (10:33→16:45)
[2021-10-19] MEDS: FUROSEMIDE 40 MG/4 ML INJECTABLE VIAL IVPUSH SCH ×2 (10:33→15:33)
[2021-10-19] MEDS: COLCHICINE 0.6 MG TAB PO SCH (13:21)
[2021-10-19] MEDS ORDERED: METOLAZONE 2.5 MG TABLET (FP) PO ONE ×2 (13:30→15:45)
[2021-10-19] MEDS ORDERED: PT OWN MED DRAWER 7, Y5N ONE (15:32)
[2021-10-19] MEDS: ATORVASTATIN CA 20 MG TABLET (FP) PO SCH (21:53)
[2021-10-19] MEDS: DOCUSATE SODIUM 100 MG CAPSULE (FP) PO SCH (21:56)
[2021-10-20] MEDS: FUROSEMIDE 40 MG/4 ML INJECTABLE VIAL IVPUSH SCH ×2 (06:37→13:41)
[2021-10-20 09:25] LABS: BASO % 0.1 % (0-2.0); EOS % 0.8 % (0-4.5); HEMATOCRIT 29.8 % (35.4-49); HEMOGLOBIN 9.8 GM/dL (11.7-16.9); LYMPH % 15.2 % (8-40); MCHC 32.9 g/dl (32.0-35.9); MEAN CELL VOLUME 100.5 fl (80-96); MEAN PLT VOLUME 7.8 fl (7.5-11.1); MONO % 9.9 % (3.8-10.2); PLATELET COUNT 183 10^3/uL (134-434); RBC 2.96 M/mm3 (4.00-5.60); RDW 14.7 % (11.9-15.9); WHITE BLOOD COUNT 11.8 K/mm3 (4.0-10.0)
[2021-10-20 09:54] LABS: ALBUMIN 2.6 g/dl (3.4-5.0); BLOOD UREA NITROGEN 60.8 mg/dL (7-18)
[2021-10-20 09:57] LABS: CREATININE 3.3 mg/dL (0.55-1.3)
[2021-10-20 09:58] LABS: BILIRUBIN,TOTAL 0.9 mg/dL (0.2-1); TOT PROT 7.4 g/dl (6.4-8.2)
[2021-10-20] MEDS ORDERED: COLCHICINE 0.6 MG CAPSULE PO SCH (10:00)
[2021-10-20] MEDS ORDERED: PT OWN MED DRAWER 7, Y5N ONE (10:10)
[2021-10-20] MEDS: INSULIN (LEVEMIR) 100 UNITS/ML UNITS SQ SCH ×2 (10:12→22:20)
[2021-10-20] MEDS: COLCHICINE 0.6 MG TAB PO SCH (10:13)
[2021-10-20] MEDS: TAMSULOSIN HCL 0.4 MG CAP PO SCH (10:13)
[2021-10-20] MEDS: FERROUS SO4 325 MG TABLET (FP) PO SCH ×2 (10:13→17:18)
[2021-10-20] MEDS: APIXABAN 2.5 MG TABLET PO SCH ×2 (10:13→22:10)
[2021-10-20] MEDS: INSULIN SLIDING SCALE (NOVOLOG) 1 VIAL SQ SCH ×4 (10:19→22:19)
[2021-10-20] MEDS: DOCUSATE SODIUM 100 MG CAPSULE (FP) PO SCH (22:09)
[2021-10-20] MEDS: ATORVASTATIN CA 20 MG TABLET (FP) PO SCH (22:10)
[2021-10-21] MEDS: FUROSEMIDE 40 MG/4 ML INJECTABLE VIAL IVPUSH SCH ×2 (05:36→13:16)
[2021-10-21] MEDS: INSULIN SLIDING SCALE (NOVOLOG) 1 VIAL SQ SCH ×4 (06:49→21:19)
[2021-10-21] MEDS: INSULIN (LEVEMIR) 100 UNITS/ML UNITS SQ SCH ×2 (06:49→21:20)
[2021-10-21 09:31] LABS: ALBUMIN 2.7 g/dl (3.4-5.0); BILIRUBIN,TOTAL 0.9 mg/dL (0.2-1); CALCIUM 9.3 mg/dL (8.5-10.1); CREATININE 3.5 mg/dL (0.55-1.3); TOT PROT 7.6 g/dl (6.4-8.2)
[2021-10-21] MEDS: TAMSULOSIN HCL 0.4 MG CAP PO SCH (10:01)
[2021-10-21] MEDS: COLCHICINE 0.6 MG TAB PO SCH (10:02)
[2021-10-21] MEDS: FERROUS SO4 325 MG TABLET (FP) PO SCH ×2 (10:02→17:44)
[2021-10-21] MEDS: APIXABAN 2.5 MG TABLET PO SCH ×2 (10:02→21:16)
[2021-10-21] MEDS: ATORVASTATIN CA 20 MG TABLET (FP) PO SCH (21:16)
[2021-10-21] MEDS: DOCUSATE SODIUM 100 MG CAPSULE (FP) PO SCH (21:18)
[2021-10-22] MEDS: INSULIN SLIDING SCALE (NOVOLOG) 1 VIAL SQ SCH ×3 (06:12→17:11)
[2021-10-22 06:59] LABS: BASO % 0.4 % (0-2.0); EOS % 1.2 % (0-4.5); HEMATOCRIT 30.5 % (35.4-49); LYMPH % 19.7 % (8-40); MCH 33.2 pg (25.7-33.7); MCHC 32.7 g/dl (32.0-35.9); MEAN CELL VOLUME 101.6 fl (80-96); MEAN PLT VOLUME 7.7 fl (7.5-11.1); MONO % 9.9 % (3.8-10.2); NEUT % 68.8 % (42.8-82.8); PLATELET COUNT 211 10^3/uL (134-434); RBC 3.01 M/mm3 (4.00-5.60); RDW 14.3 % (11.9-15.9); WHITE BLOOD COUNT 9.6 K/mm3 (4.0-10.0)
[2021-10-22] MEDS: INSULIN (LEVEMIR) 100 UNITS/ML UNITS SQ SCH ×2 (06:59→22:35)
[2021-10-22] MEDS: FUROSEMIDE 40 MG/4 ML INJECTABLE VIAL IVPUSH SCH ×2 (07:01→14:25)
[2021-10-22 07:27] LABS: ALBUMIN 2.7 g/dl (3.4-5.0); BLOOD UREA NITROGEN 69.8 mg/dL (7-18)
[2021-10-22 07:30] LABS: CREATININE 3.5 mg/dL (0.55-1.3)
[2021-10-22 07:31] LABS: BILIRUBIN,TOTAL 0.5 mg/dL (0.2-1); TOT PROT 7.4 g/dl (6.4-8.2)
[2021-10-22] MEDS ORDERED: PT OWN MED DRAWER 7, Y5N ONE (09:24)
[2021-10-22] MEDS: APIXABAN 2.5 MG TABLET PO SCH ×2 (09:37→22:28)
[2021-10-22] MEDS: COLCHICINE 0.6 MG TAB PO SCH (09:38)
[2021-10-22] MEDS: FERROUS SO4 325 MG TABLET (FP) PO SCH ×2 (09:38→17:13)
[2021-10-22] MEDS: TAMSULOSIN HCL 0.4 MG CAP PO SCH (09:38)
[2021-10-22] MEDS: DOCUSATE SODIUM 100 MG CAPSULE (FP) PO SCH (22:26)
[2021-10-22] MEDS: ATORVASTATIN CA 20 MG TABLET (FP) PO SCH (22:27)
[2021-10-23] MEDS: INSULIN SLIDING SCALE (NOVOLOG) 1 VIAL SQ SCH ×5 (01:27→17:05)
[2021-10-23] MEDS: INSULIN (LEVEMIR) 100 UNITS/ML UNITS SQ SCH ×3 (06:37→23:11)
[2021-10-23] MEDS: TORSEMIDE 20 MG TABLET (FP) PO SCH (09:58)
[2021-10-23] MEDS: TAMSULOSIN HCL 0.4 MG CAP PO SCH (09:58)
[2021-10-23] MEDS: FERROUS SO4 325 MG TABLET (FP) PO SCH ×2 (09:58→17:33)
[2021-10-23] MEDS: APIXABAN 2.5 MG TABLET PO SCH ×2 (09:58→23:03)
[2021-10-23] MEDS: COLCHICINE 0.6 MG TAB PO SCH (09:58)
[2021-10-23] MEDS: ATORVASTATIN CA 20 MG TABLET (FP) PO SCH (23:03)
[2021-10-23] MEDS: DOCUSATE SODIUM 100 MG CAPSULE (FP) PO SCH (23:12)
[2021-10-24] MEDS: INSULIN (LEVEMIR) 100 UNITS/ML UNITS SQ SCH (06:13)
[2021-10-24] MEDS: INSULIN SLIDING SCALE (NOVOLOG) 1 VIAL SQ SCH ×3 (06:13→12:09)
[2021-10-24] MEDS ORDERED: PT OWN MED DRAWER 7, Y5N ONE (08:53)
[2021-10-24] MEDS: FERROUS SO4 325 MG TABLET (FP) PO SCH (09:40)
[2021-10-24] MEDS: TORSEMIDE 20 MG TABLET (FP) PO SCH (09:40)
[2021-10-24] MEDS: TAMSULOSIN HCL 0.4 MG CAP PO SCH (09:40)
[2021-10-24] MEDS: APIXABAN 2.5 MG TABLET PO SCH (09:40)
[2021-10-24] MEDS: COLCHICINE 0.6 MG TAB PO SCH (09:41)
[2021-10-24 14:06] VITALS: BP 128/76; PULSE 76; TEMP 98.2
== END 2021-10-24 14:40 | disposition home or self-care (01) | DRG 291 ==
LOC: JER 16:51 → JERBED 20:47 → J4W 10-14 00:33
PROVIDERS: ADMIT Internal Medicine; ATTEND Internal Medicine
DX: I13.0 Hypertensive heart and chronic kidney disease with heart failure and stage 1 through stage 4 chronic kidney disease, or unspecified chronic kidney disease (principal); I50.43 Acute on chronic combined systolic (congestive) and diastolic (congestive) heart failure; N17.9 Acute kidney failure, unspecified; I24.8 Other forms of acute ischemic heart disease; I25.119 Atherosclerotic heart disease of native coronary artery with unspecified angina pectoris; N18.30 Chronic kidney disease, stage 3 unspecified; E78.5 Hyperlipidemia, unspecified; E11.40 Type 2 diabetes mellitus with diabetic neuropathy, unspecified; I48.0 Paroxysmal atrial fibrillation; N40.0 Benign prostatic hyperplasia without lower urinary tract symptoms; M10.9 Gout, unspecified; R79.89 Other specified abnormal findings of blood chemistry; R60.9 Edema, unspecified; E11.51 Type 2 diabetes mellitus with diabetic peripheral angiopathy without gangrene; I27.20 Pulmonary hypertension, unspecified; E11.22 Type 2 diabetes mellitus with diabetic chronic kidney disease; K59.00 Constipation, unspecified; E05.90 Thyrotoxicosis, unspecified without thyrotoxic crisis or storm; D64.9 Anemia, unspecified; I34.0 Nonrheumatic mitral (valve) insufficiency; E87.70 Fluid overload, unspecified; Z96.653 Presence of artificial knee joint, bilateral; Z95.0 Presence of cardiac pacemaker; Z95.5 Presence of coronary angioplasty implant and graft
CPT/HCPCS: 36415; 71045-TC-FY; 80053; 82550; 82962; 83735; 83880; 84443; 84484; 84550; 85025; 85610; 85730; 93005; 93010; 99283-25; C9803; U0003; U0005

== ENCOUNTER 2021-12-14 14:55 | Inpatient (IN) | payer OTHER ==
[2021-12-14] MEDS ORDERED: FUROSEMIDE 40 MG/4 ML INJECTABLE VIAL IVPUSH ONE (16:13)
[2021-12-14] MEDS ORDERED: FUROSEMIDE 40 MG/4 ML INJECTABLE VIAL ONE (16:44)
[2021-12-14 17:04] LABS: BASO % 0.2 % (0-2.0); EOS % 0.7 % (0-4.5); HEMATOCRIT 26.3 % (35.4-49); HEMOGLOBIN 8.6 GM/dL (11.7-16.9); LYMPH % 17.6 % (8-40); MCHC 32.7 g/dl (32.0-35.9); MEAN CELL VOLUME 103.9 fl (80-96); MEAN PLT VOLUME 7.7 fl (7.5-11.1); MONO % 8.4 % (3.8-10.2); NEUT % 73.1 % (42.8-82.8); PLATELET COUNT 132 10^3/uL (134-434); RBC 2.53 M/mm3 (4.00-5.60); RDW 17.7 % (11.9-15.9)
[2021-12-14 17:08] LABS: EPI CELLS 1 /uL (0-25.1); HYALINE CASTS 0 /uL (0-3.1); URINE APPEARANCE CLEAR; URINE BACTERIA 0 /uL (0-1359); URINE BILIRUBIN NEGATIVE (NEGATIVE); URINE COLOR YELLOW; URINE GLUCOSE (UA) NEGATIVE (NEGATIVE); URINE KETONE NEGATIVE (NEGATIVE); URINE LEUK ESTERASE NEGATIVE (NEGATIVE); URINE NITRITE NEGATIVE (NEGATIVE); URINE PROTEIN 1+ (NEGATIVE); URINE RBC 3 /uL (0-23.9); URINE WBC 0 /uL (0-25.8)
[2021-12-14 17:13] LABS: INR 2.68 (0.83-1.09); PROTHROMBIN TIME (PATIENT) 31.1 SEC (9.7-13.0)
[2021-12-14 17:16] LABS: ACTIVATED PTT 37.3 SECONDS (25.2-36.5)
[2021-12-14 17:19] LABS: CALCIUM 9.4 mg/dL (8.5-10.1)
[2021-12-14 17:20] LABS: ALBUMIN 3.2 g/dl (3.4-5.0); BLOOD UREA NITROGEN 74.4 mg/dL (7-18)
[2021-12-14 17:23] LABS: CREATININE 3.9 mg/dL (0.55-1.3)
[2021-12-14 17:24] LABS: BILIRUBIN,TOTAL 0.4 mg/dL (0.2-1)
[2021-12-14 17:25] LABS: TOT PROT 7.3 g/dl (6.4-8.2)
[2021-12-14] MEDS ORDERED: MECLIZINE HCL 25 MG TABLET (FP) PO PRN (21:34)
[2021-12-14] MEDS: FERROUS SO4 325 MG TABLET (FP) PO SCH (21:59)
[2021-12-14] MEDS: ATORVASTATIN CA 20 MG TABLET (FP) PO SCH (22:00)
[2021-12-14] MEDS: INSULIN SLIDING SCALE (NOVOLOG) 1 VIAL SQ SCH (22:00)
[2021-12-15] MEDS: INSULIN SLIDING SCALE (NOVOLOG) 1 VIAL SQ SCH ×4 (06:29→21:56)
[2021-12-15] MEDS ORDERED: FUROSEMIDE 100 MG/10 ML INJECTABLE VIAL IVPB SCH (06:30)
[2021-12-15] MEDS ORDERED: TORSEMIDE 20 MG TABLET (FP) PO SCH (10:00)
[2021-12-15 10:09] LABS: BASO % 0.4 % (0-2.0); EOS % 0.4 % (0-4.5); HEMATOCRIT 28.2 % (35.4-49); HEMOGLOBIN 9.1 GM/dL (11.7-16.9); LYMPH % 16.5 % (8-40); MCH 34.1 pg (25.7-33.7); MCHC 32.2 g/dl (32.0-35.9); MEAN CELL VOLUME 105.9 fl (80-96); MEAN PLT VOLUME 7.9 fl (7.5-11.1); MONO % 9.7 % (3.8-10.2); PLATELET COUNT 127 10^3/uL (134-434); RBC 2.66 M/mm3 (4.00-5.60); RDW 18.5 % (11.9-15.9); WHITE BLOOD COUNT 8.8 K/mm3 (4.0-10.0)
[2021-12-15 10:14] LABS: ALBUMIN 3.3 g/dl (3.4-5.0); BLOOD UREA NITROGEN 72.9 mg/dL (7-18); CALCIUM 9.5 mg/dL (8.5-10.1)
[2021-12-15 10:17] LABS: CREATININE 3.8 mg/dL (0.55-1.3)
[2021-12-15 10:17] LABS: INR 2.29 (0.83-1.09); PROTHROMBIN TIME (PATIENT) 26.6 SEC (9.7-13.0)
[2021-12-15 10:19] LABS: BILIRUBIN,TOTAL 0.5 mg/dL (0.2-1); TOT PROT 7.3 g/dl (6.4-8.2)
[2021-12-15] MEDS: PREGABALIN 50 MG CAPSULE PO SCH (12:07)
[2021-12-15] MEDS: WATER IVPUSH SCH ×2 (12:08→17:49)
[2021-12-15] MEDS: TAMSULOSIN HCL 0.4 MG CAP PO SCH (12:08)
[2021-12-15] MEDS: DEXTROSE 5% IVPUSH SCH ×2 (12:08→17:49)
[2021-12-15] MEDS: FUROSEMIDE IVPUSH SCH ×2 (12:08→17:49)
[2021-12-15] MEDS: FERROUS SO4 325 MG TABLET (FP) PO SCH ×2 (12:08→21:55)
[2021-12-15] MEDS: ATORVASTATIN CA 20 MG TABLET (FP) PO SCH (21:55)
[2021-12-16 06:14] LABS: INR 2.11 (0.83-1.09); PROTHROMBIN TIME (PATIENT) 24.4 SEC (9.7-13.0)
[2021-12-16 06:15] LABS: ACTIVATED PTT 35.2 SECONDS (25.2-36.5)
[2021-12-16] MEDS: INSULIN SLIDING SCALE (NOVOLOG) 1 VIAL SQ SCH ×4 (06:16→21:38)
[2021-12-16] MEDS: DEXTROSE 5% IVPUSH SCH ×2 (06:47→15:20)
[2021-12-16] MEDS: FUROSEMIDE IVPUSH SCH ×2 (06:47→15:20)
[2021-12-16] MEDS: WATER IVPUSH SCH ×2 (06:47→15:20)
[2021-12-16 09:29] LABS: BASO % 0.5 % (0-2.0); EOS % 0.8 % (0-4.5); HEMATOCRIT 29.3 % (35.4-49); HEMOGLOBIN 9.3 GM/dL (11.7-16.9); LYMPH % 18.5 % (8-40); MCH 33.5 pg (25.7-33.7); MCHC 31.8 g/dl (32.0-35.9); MEAN CELL VOLUME 105.4 fl (80-96); MEAN PLT VOLUME 8.1 fl (7.5-11.1); MONO % 8.8 % (3.8-10.2); NEUT % 71.4 % (42.8-82.8); PLATELET COUNT 152 10^3/uL (134-434); RBC 2.78 M/mm3 (4.00-5.60); RDW 17.9 % (11.9-15.9); WHITE BLOOD COUNT 7.9 K/mm3 (4.0-10.0)
[2021-12-16 09:53] LABS: INR 1.95 (0.83-1.09); PROTHROMBIN TIME (PATIENT) 22.6 SEC (9.7-13.0)
[2021-12-16] MEDS: FERROUS SO4 325 MG TABLET (FP) PO SCH ×2 (10:36→21:36)
[2021-12-16] MEDS: PREGABALIN 50 MG CAPSULE PO SCH (10:36)
[2021-12-16] MEDS: PHYTONADIONE 10 MG/1 ML AMP SQ SCH (10:36)
[2021-12-16] MEDS: TAMSULOSIN HCL 0.4 MG CAP PO SCH (10:36)
[2021-12-16] MEDS ORDERED: FUROSEMIDE 40 MG/4 ML INJECTABLE VIAL ONE (14:26)
[2021-12-16] MEDS: ATORVASTATIN CA 20 MG TABLET (FP) PO SCH (21:36)
[2021-12-17] MEDS: INSULIN SLIDING SCALE (NOVOLOG) 1 VIAL SQ SCH ×4 (06:20→21:14)
[2021-12-17] MEDS: DEXTROSE 5% IVPUSH SCH ×2 (06:21→16:01)
[2021-12-17] MEDS: FUROSEMIDE IVPUSH SCH ×2 (06:21→16:01)
[2021-12-17] MEDS: WATER IVPUSH SCH ×2 (06:21→16:01)
[2021-12-17] MEDS: FERROUS SO4 325 MG TABLET (FP) PO SCH ×2 (10:21→21:14)
[2021-12-17] MEDS: TAMSULOSIN HCL 0.4 MG CAP PO SCH (10:21)
[2021-12-17] MEDS: PHYTONADIONE 10 MG/1 ML AMP SQ SCH (10:21)
[2021-12-17] MEDS: PREGABALIN 50 MG CAPSULE PO SCH (10:21)
[2021-12-17 11:18] LABS: ALBUMIN 3.2 g/dl (3.4-5.0); CALCIUM 9.8 mg/dL (8.5-10.1)
[2021-12-17 11:21] LABS: CREATININE 3.6 mg/dL (0.55-1.3)
[2021-12-17 11:23] LABS: BILIRUBIN,TOTAL 0.7 mg/dL (0.2-1); TOT PROT 7.6 g/dl (6.4-8.2)
[2021-12-17] MEDS ORDERED: DEXTROSE 5% IVPUSH SCH (15:49)
[2021-12-17] MEDS ORDERED: FUROSEMIDE IVPUSH SCH (15:49)
[2021-12-17] MEDS ORDERED: WATER IVPUSH SCH (15:49)
[2021-12-17] MEDS ORDERED: FUROSEMIDE 40 MG/4 ML INJECTABLE VIAL IVPUSH ONE (15:49)
[2021-12-17] MEDS: ATORVASTATIN CA 20 MG TABLET (FP) PO SCH (21:14)
[2021-12-18] MEDS: INSULIN SLIDING SCALE (NOVOLOG) 1 VIAL SQ SCH ×4 (06:23→21:16)
[2021-12-18] MEDS: FUROSEMIDE 40 MG/4 ML INJECTABLE VIAL IVPUSH SCH ×2 (06:27→19:05)
[2021-12-18 10:19] LABS: BASO % 0.2 % (0-2.0); EOS % 0.7 % (0-4.5); HEMATOCRIT 31.9 % (35.4-49); HEMOGLOBIN 10.5 GM/dL (11.7-16.9); LYMPH % 16.9 % (8-40); MCH 34.2 pg (25.7-33.7); MCHC 32.8 g/dl (32.0-35.9); MEAN CELL VOLUME 104.4 fl (80-96); MEAN PLT VOLUME 8.4 fl (7.5-11.1); MONO % 9.9 % (3.8-10.2); NEUT % 72.3 % (42.8-82.8); PLATELET COUNT 168 10^3/uL (134-434); RBC 3.06 M/mm3 (4.00-5.60); RDW 17.4 % (11.9-15.9); WHITE BLOOD COUNT 10.6 K/mm3 (4.0-10.0)
[2021-12-18 10:36] LABS: ALBUMIN 3.3 g/dl (3.4-5.0); CALCIUM 9.5 mg/dL (8.5-10.1)
[2021-12-18 10:37] LABS: BLOOD UREA NITROGEN 65.8 mg/dL (7-18)
[2021-12-18 10:40] LABS: CREATININE 3.9 mg/dL (0.55-1.3); PHOSPHOROUS 4.4 mg/dL (2.5-4.9)
[2021-12-18 10:41] LABS: TOT PROT 7.9 g/dl (6.4-8.2)
[2021-12-18 10:49] LABS: INR 1.9 (0.83-1.09)
[2021-12-18 10:52] LABS: ACTIVATED PTT 31.6 SECONDS (25.2-36.5)
[2021-12-18] MEDS: TAMSULOSIN HCL 0.4 MG CAP PO SCH (11:42)
[2021-12-18] MEDS: FERROUS SO4 325 MG TABLET (FP) PO SCH ×2 (11:42→21:16)
[2021-12-18] MEDS: PREGABALIN 50 MG CAPSULE PO SCH (11:42)
[2021-12-18] MEDS: PHYTONADIONE 10 MG/1 ML AMP SQ SCH (11:43)
[2021-12-18] MEDS: ATORVASTATIN CA 20 MG TABLET (FP) PO SCH (21:16)
[2021-12-19] MEDS: INSULIN SLIDING SCALE (NOVOLOG) 1 VIAL SQ SCH ×4 (06:35→22:40)
[2021-12-19] MEDS: FUROSEMIDE 40 MG/4 ML INJECTABLE VIAL IVPUSH SCH ×2 (06:36→16:23)
[2021-12-19] MEDS: TAMSULOSIN HCL 0.4 MG CAP PO SCH (09:16)
[2021-12-19] MEDS: PREGABALIN 50 MG CAPSULE PO SCH (09:16)
[2021-12-19] MEDS: FERROUS SO4 325 MG TABLET (FP) PO SCH ×2 (09:16→21:19)
[2021-12-19 09:43] LABS: INR 1.8 (0.83-1.09); PROTHROMBIN TIME (PATIENT) 20.8 SEC (9.7-13.0)
[2021-12-19 09:46] LABS: ACTIVATED PTT 32.6 SECONDS (25.2-36.5); BASO % 0.2 % (0-2.0); EOS % 0.2 % (0-4.5); HEMATOCRIT 29.8 % (35.4-49); LYMPH % 14.6 % (8-40); MCH 34.7 pg (25.7-33.7); MCHC 33.5 g/dl (32.0-35.9); MEAN CELL VOLUME 103.7 fl (80-96); MEAN PLT VOLUME 7.7 fl (7.5-11.1); MONO % 9.8 % (3.8-10.2); NEUT % 75.2 % (42.8-82.8); PLATELET COUNT 188 10^3/uL (134-434); RBC 2.88 M/mm3 (4.00-5.60); WHITE BLOOD COUNT 12.2 K/mm3 (4.0-10.0)
[2021-12-19 10:08] LABS: BLOOD UREA NITROGEN 71.5 mg/dL (7-18); CALCIUM 9.1 mg/dL (8.5-10.1)
[2021-12-19] MEDS: ATORVASTATIN CA 20 MG TABLET (FP) PO SCH (21:19)
[2021-12-20] MEDS: INSULIN SLIDING SCALE (NOVOLOG) 1 VIAL SQ SCH ×4 (06:22→23:22)
[2021-12-20] MEDS: FUROSEMIDE 40 MG/4 ML INJECTABLE VIAL IVPUSH SCH ×3 (06:23→15:53)
[2021-12-20] MEDS: TAMSULOSIN HCL 0.4 MG CAP PO SCH (10:07)
[2021-12-20] MEDS: PREGABALIN 50 MG CAPSULE PO SCH (10:08)
[2021-12-20] MEDS: FERROUS SO4 325 MG TABLET (FP) PO SCH ×2 (10:08→21:07)
[2021-12-20 11:22] LABS: BASO % 0.2 % (0-2.0); EOS % 0.1 % (0-4.5); HEMATOCRIT 29.8 % (35.4-49); HEMOGLOBIN 9.9 GM/dL (11.7-16.9); MCH 34.5 pg (25.7-33.7); MCHC 33.4 g/dl (32.0-35.9); MEAN CELL VOLUME 103.1 fl (80-96); MEAN PLT VOLUME 7.7 fl (7.5-11.1); MONO % 10.7 % (3.8-10.2); PLATELET COUNT 182 10^3/uL (134-434); RBC 2.89 M/mm3 (4.00-5.60); WHITE BLOOD COUNT 14.6 K/mm3 (4.0-10.0)
[2021-12-20 11:27] LABS: INR 2.04 (0.83-1.09); PROTHROMBIN TIME (PATIENT) 23.6 SEC (9.7-13.0)
[2021-12-20 11:36] LABS: CALCIUM 9.2 mg/dL (8.5-10.1)
[2021-12-20 11:37] LABS: ALBUMIN 2.9 g/dl (3.4-5.0)
[2021-12-20 11:40] LABS: CREATININE 4.1 mg/dL (0.55-1.3)
[2021-12-20 11:42] LABS: BILIRUBIN,TOTAL 1.1 mg/dL (0.2-1); TOT PROT 7.4 g/dl (6.4-8.2)
[2021-12-20] MEDS ORDERED: SODIUM CHLORIDE 250 ML IV PRN ×2 (16:08→18:29)
[2021-12-20] MEDS ORDERED: SUCCINYLCHOLINE CHLORIDE 200 MG/10 ML SYRINGE ONE (17:20)
[2021-12-20] MEDS ORDERED: PROPOFOL 20 ML ONE (17:23)
[2021-12-20] MEDS ORDERED: LIDOCAINE HCL 1%, 10 MG/ML (20ML VIAL) ONE (17:23)
[2021-12-20] MEDS ORDERED: HEPARIN NA (PORCINE) 5,000 UNITS/ML 1ML VIAL ONE (17:23)
[2021-12-20] MEDS ORDERED: MIDAZOLAM HCL 2 MG/2 ML SINGLE DOSE VIAL ONE (17:32)
[2021-12-20] MEDS ORDERED: ceFAZolin SODIUM 1 GM VIAL IVPB ONE (17:45)
[2021-12-20] MEDS ORDERED: LIDOCAINE HCL 1%, 10 MG/ML (20ML VIAL) INF ONE (17:54)
[2021-12-20] MEDS ORDERED: MECLIZINE HCL 25 MG TABLET (FP) PO PRN (18:29)
[2021-12-20] MEDS: ATORVASTATIN CA 20 MG TABLET (FP) PO SCH (21:07)
[2021-12-20] MEDS: APIXABAN 2.5 MG TABLET PO SCH (23:22)
[2021-12-21] MEDS: APIXABAN 2.5 MG TABLET PO SCH (02:04)
[2021-12-21] MEDS: INSULIN SLIDING SCALE (NOVOLOG) 1 VIAL SQ SCH ×4 (06:10→23:21)
[2021-12-21 08:49] LABS: BASO % 0.1 % (0-2.0); EOS % 0.4 % (0-4.5); HEMATOCRIT 28.1 % (35.4-49); LYMPH % 13.8 % (8-40); MCH 33.3 pg (25.7-33.7); MCHC 32.1 g/dl (32.0-35.9); MEAN CELL VOLUME 103.9 fl (80-96); MEAN PLT VOLUME 7.7 fl (7.5-11.1); MONO % 11.1 % (3.8-10.2); NEUT % 74.6 % (42.8-82.8); PLATELET COUNT 169 10^3/uL (134-434); RBC 2.71 M/mm3 (4.00-5.60); RDW 16.3 % (11.9-15.9); WHITE BLOOD COUNT 11.4 K/mm3 (4.0-10.0)
[2021-12-21 09:22] LABS: ALBUMIN 2.5 g/dl (3.4-5.0); CALCIUM 8.5 mg/dL (8.5-10.1)
[2021-12-21 09:23] LABS: BLOOD UREA NITROGEN 82.2 mg/dL (7-18)
[2021-12-21 09:25] LABS: CREATININE 4.2 mg/dL (0.55-1.3)
[2021-12-21 09:27] LABS: BILIRUBIN,TOTAL 0.7 mg/dL (0.2-1)
[2021-12-21 09:28] LABS: TOT PROT 6.7 g/dl (6.4-8.2)
[2021-12-21] MEDS ORDERED: TORSEMIDE 100 MG TABLET PO ONE (10:52)
[2021-12-21] MEDS: TAMSULOSIN HCL 0.4 MG CAP PO SCH (11:27)
[2021-12-21] MEDS: PREGABALIN 50 MG CAPSULE PO SCH (11:27)
[2021-12-21] MEDS: FERROUS SO4 325 MG TABLET (FP) PO SCH ×3 (11:27→23:39)
[2021-12-21 13:27] LABS: PROTHROMBIN TIME (PATIENT) 21.8 SEC (9.7-13.0)
[2021-12-21 13:28] LABS: INR 1.88 (0.83-1.09)
[2021-12-21] MEDS: ACETAMINOPHEN 325 MG TABLET (FP) PO PRN ×2 (15:30→23:20)
[2021-12-21] MEDS ORDERED: cefTRIAXone SODIUM 1 GM VIAL ONE ×2 (23:13→23:14)
[2021-12-21] MEDS: CEFTRIAXONE 1 GM in DEXTROSE 5%-WATER - 50 ML IVPB SCH (23:19)
[2021-12-21] MEDS: ATORVASTATIN CA 20 MG TABLET (FP) PO SCH ×2 (23:20→23:39)
[2021-12-22] MEDS: INSULIN SLIDING SCALE (NOVOLOG) 1 VIAL SQ SCH ×4 (07:15→21:33)
[2021-12-22] MEDS ORDERED: DEXTROSE 5%-WATER - 50 ML IVPB ONE (08:53)
[2021-12-22] MEDS ORDERED: cefTRIAXone SODIUM 1 GM VIAL ONE (08:53)
[2021-12-22] MEDS: TAMSULOSIN HCL 0.4 MG CAP PO SCH (09:17)
[2021-12-22] MEDS: PREGABALIN 50 MG CAPSULE PO SCH (09:17)
[2021-12-22] MEDS: ACETAMINOPHEN 325 MG TABLET (FP) PO PRN ×2 (09:17→21:32)
[2021-12-22] MEDS: CEFTRIAXONE 1 GM in DEXTROSE 5%-WATER - 50 ML IVPB SCH (09:20)
[2021-12-22] MEDS: FERROUS SO4 325 MG TABLET (FP) PO SCH ×2 (09:23→21:32)
[2021-12-22] MEDS ORDERED: POVIDONE-IODINE OINTMENT 10% - 28.4 GM TUBE ONE (13:59)
[2021-12-22] MEDS ORDERED: LIDOCAINE HCL 1%, 10 MG/ML (20ML VIAL) ONE (13:59)
[2021-12-22] MEDS ORDERED: ROPIVACAINE HCL 0.5% 30ML VIAL ONE ×2 (14:17→14:39)
[2021-12-22] MEDS ORDERED: MIDAZOLAM HCL 2 MG/2 ML SINGLE DOSE VIAL ONE (14:18)
[2021-12-22] MEDS ORDERED: POVIDONE-IODINE OINTMENT 10% - 28.4 GM TUBE TP ONE (16:18)
[2021-12-22] MEDS ORDERED: MECLIZINE HCL 25 MG TABLET (FP) PO PRN (16:42)
[2021-12-22] MEDS: ATORVASTATIN CA 20 MG TABLET (FP) PO SCH (21:32)
[2021-12-23] MEDS: ACETAMINOPHEN 325 MG TABLET (FP) PO PRN ×3 (05:03→18:43)
[2021-12-23] MEDS: INSULIN SLIDING SCALE (NOVOLOG) 1 VIAL SQ SCH ×4 (06:04→22:19)
[2021-12-23] MEDS ORDERED: cefTRIAXone SODIUM 1 GM VIAL ONE (11:39)
[2021-12-23] MEDS ORDERED: DEXTROSE 5%-WATER - 50 ML IVPB ONE (11:40)
[2021-12-23] MEDS: TAMSULOSIN HCL 0.4 MG CAP PO SCH (11:58)
[2021-12-23] MEDS: FERROUS SO4 325 MG TABLET (FP) PO SCH ×2 (11:59→22:20)
[2021-12-23] MEDS: CEFTRIAXONE 1 GM in DEXTROSE 5%-WATER - 50 ML IVPB SCH (11:59)
[2021-12-23] MEDS: PREGABALIN 50 MG CAPSULE PO SCH (11:59)
[2021-12-23 15:29] VITALS: BMI 32.1
[2021-12-23] MEDS: ATORVASTATIN CA 20 MG TABLET (FP) PO SCH (22:20)
[2021-12-24] MEDS: INSULIN SLIDING SCALE (NOVOLOG) 1 VIAL SQ SCH ×4 (06:30→21:08)
[2021-12-24] MEDS ORDERED: cefTRIAXone SODIUM 1 GM VIAL ONE (09:45)
[2021-12-24] MEDS ORDERED: DEXTROSE 5%-WATER - 50 ML IVPB ONE (09:45)
[2021-12-24] MEDS: TAMSULOSIN HCL 0.4 MG CAP PO SCH (09:50)
[2021-12-24] MEDS: CEFTRIAXONE 1 GM in DEXTROSE 5%-WATER - 50 ML IVPB SCH (09:50)
[2021-12-24] MEDS: FERROUS SO4 325 MG TABLET (FP) PO SCH ×2 (09:51→21:07)
[2021-12-24] MEDS: PREGABALIN 50 MG CAPSULE PO SCH (09:51)
[2021-12-24] MEDS: ACETAMINOPHEN 325 MG TABLET (FP) PO PRN ×2 (13:54→21:07)
[2021-12-24 19:34] LABS: BASO % 0.3 % (0-2.0); EOS % 0.9 % (0-4.5); HEMATOCRIT 28.5 % (35.4-49); HEMOGLOBIN 9.4 GM/dL (11.7-16.9); LYMPH % 14.4 % (8-40); MCH 33.4 pg (25.7-33.7); MCHC 32.9 g/dl (32.0-35.9); MEAN CELL VOLUME 101.4 fl (80-96); MONO % 11.1 % (3.8-10.2); NEUT % 73.3 % (42.8-82.8); PLATELET COUNT 188 10^3/uL (134-434); RBC 2.81 M/mm3 (4.00-5.60); RDW 16.1 % (11.9-15.9); WHITE BLOOD COUNT 11.2 K/mm3 (4.0-10.0)
[2021-12-24] MEDS: ATORVASTATIN CA 20 MG TABLET (FP) PO SCH (21:07)
[2021-12-25] MEDS: INSULIN SLIDING SCALE (NOVOLOG) 1 VIAL SQ SCH ×4 (06:54→21:25)
[2021-12-25] MEDS ORDERED: DEXTROSE 5%-WATER - 50 ML IVPB ONE (09:01)
[2021-12-25] MEDS ORDERED: cefTRIAXone SODIUM 1 GM VIAL ONE (09:01)
[2021-12-25] MEDS: TAMSULOSIN HCL 0.4 MG CAP PO SCH (09:29)
[2021-12-25] MEDS: CEFTRIAXONE 1 GM in DEXTROSE 5%-WATER - 50 ML IVPB SCH (09:29)
[2021-12-25] MEDS: PREGABALIN 50 MG CAPSULE PO SCH (09:29)
[2021-12-25] MEDS: FERROUS SO4 325 MG TABLET (FP) PO SCH ×2 (09:29→21:25)
[2021-12-25] MEDS: ACETAMINOPHEN 325 MG TABLET (FP) PO PRN (10:18)
[2021-12-25] MEDS: ATORVASTATIN CA 20 MG TABLET (FP) PO SCH (21:25)
[2021-12-25] MEDS: APIXABAN 2.5 MG TABLET PO SCH (21:25)
[2021-12-26] MEDS: INSULIN SLIDING SCALE (NOVOLOG) 1 VIAL SQ SCH ×4 (06:05→21:25)
[2021-12-26] MEDS ORDERED: SODIUM CHLORIDE 250 ML IV PRN (10:05)
[2021-12-26 10:09] LABS: HEMATOCRIT 26.7 % (35.4-49); HEMOGLOBIN 8.9 GM/dL (11.7-16.9); MCH 33.7 pg (25.7-33.7); MCHC 33.3 g/dl (32.0-35.9); MEAN CELL VOLUME 101.1 fl (80-96); MEAN PLT VOLUME 7.9 fl (7.5-11.1); PLATELET COUNT 263 10^3/uL (134-434); RBC 2.64 M/mm3 (4.00-5.60); RDW 16.2 % (11.9-15.9); WHITE BLOOD COUNT 10.3 K/mm3 (4.0-10.0)
[2021-12-26 10:36] LABS: CALCIUM 8.6 mg/dL (8.5-10.1)
[2021-12-26 10:37] LABS: BLOOD UREA NITROGEN 91.9 mg/dL (7-18)
[2021-12-26 10:40] LABS: CREATININE 3.8 mg/dL (0.55-1.3); PHOSPHOROUS 4.8 mg/dL (2.5-4.9)
[2021-12-26] MEDS ORDERED: DEXTROSE 5%-WATER - 50 ML IVPB ONE (12:57)
[2021-12-26] MEDS ORDERED: cefTRIAXone SODIUM 1 GM VIAL ONE (12:57)
[2021-12-26] MEDS: APIXABAN 2.5 MG TABLET PO SCH ×2 (12:59→21:26)
[2021-12-26] MEDS: FERROUS SO4 325 MG TABLET (FP) PO SCH ×2 (12:59→21:26)
[2021-12-26] MEDS: TAMSULOSIN HCL 0.4 MG CAP PO SCH (12:59)
[2021-12-26] MEDS: PREGABALIN 50 MG CAPSULE PO SCH (12:59)
[2021-12-26] MEDS: CEFTRIAXONE 1 GM in DEXTROSE 5%-WATER - 50 ML IVPB SCH (13:01)
[2021-12-26] MEDS: ATORVASTATIN CA 20 MG TABLET (FP) PO SCH (21:26)
[2021-12-27] MEDS: INSULIN SLIDING SCALE (NOVOLOG) 1 VIAL SQ SCH ×4 (06:10→21:45)
[2021-12-27] MEDS: TAMSULOSIN HCL 0.4 MG CAP PO SCH (08:49)
[2021-12-27] MEDS: ACETAMINOPHEN 325 MG TABLET (FP) PO PRN (08:49)
[2021-12-27] MEDS ORDERED: DEXTROSE 5%-WATER - 50 ML IVPB ONE (08:58)
[2021-12-27] MEDS ORDERED: cefTRIAXone SODIUM 1 GM VIAL ONE (08:58)
[2021-12-27] MEDS: CEFTRIAXONE 1 GM in DEXTROSE 5%-WATER - 50 ML IVPB SCH (09:07)
[2021-12-27] MEDS: APIXABAN 2.5 MG TABLET PO SCH ×2 (09:07→21:45)
[2021-12-27] MEDS: FERROUS SO4 325 MG TABLET (FP) PO SCH ×2 (09:07→21:45)
[2021-12-27] MEDS: PREGABALIN 50 MG CAPSULE PO SCH (09:07)
[2021-12-27] MEDS: ATORVASTATIN CA 20 MG TABLET (FP) PO SCH (21:45)
[2021-12-28] MEDS: INSULIN SLIDING SCALE (NOVOLOG) 1 VIAL SQ SCH ×4 (06:07→21:30)
[2021-12-28] MEDS: PREGABALIN 50 MG CAPSULE PO SCH (09:54)
[2021-12-28] MEDS: APIXABAN 2.5 MG TABLET PO SCH ×2 (09:54→21:04)
[2021-12-28] MEDS: TAMSULOSIN HCL 0.4 MG CAP PO SCH (09:54)
[2021-12-28] MEDS: FERROUS SO4 325 MG TABLET (FP) PO SCH ×2 (09:54→21:04)
[2021-12-28 11:18] LABS: HEMATOCRIT 28.5 % (35.4-49); HEMOGLOBIN 9.5 GM/dL (11.7-16.9); MCH 33.7 pg (25.7-33.7); MCHC 33.4 g/dl (32.0-35.9); MEAN CELL VOLUME 100.9 fl (80-96); MEAN PLT VOLUME 7.3 fl (7.5-11.1); PLATELET COUNT 313 10^3/uL (134-434); RBC 2.83 M/mm3 (4.00-5.60); RDW 16.1 % (11.9-15.9); WHITE BLOOD COUNT 9.6 K/mm3 (4.0-10.0)
[2021-12-28] MEDS ORDERED: EPOETIN ALFA-EPBX 10,000 UNIT/ML VIAL IVPUSH ONE (12:00)
[2021-12-28] MEDS ORDERED: SODIUM CHLORIDE 250 ML IV PRN (12:00)
[2021-12-28 17:36] LABS: CALCIUM 8.6 mg/dL (8.5-10.1)
[2021-12-28 17:40] LABS: CREATININE 3.4 mg/dL (0.55-1.3)
[2021-12-28] MEDS: ATORVASTATIN CA 20 MG TABLET (FP) PO SCH (21:04)
[2021-12-28] MEDS: DOCUSATE SODIUM 100 MG CAPSULE (FP) PO SCH (21:30)
[2021-12-29] MEDS: INSULIN SLIDING SCALE (NOVOLOG) 1 VIAL SQ SCH ×4 (06:00→22:13)
[2021-12-29] MEDS: TAMSULOSIN HCL 0.4 MG CAP PO SCH (09:45)
[2021-12-29] MEDS: FERROUS SO4 325 MG TABLET (FP) PO SCH ×2 (09:46→21:15)
[2021-12-29] MEDS: PREGABALIN 50 MG CAPSULE PO SCH (09:46)
[2021-12-29] MEDS: APIXABAN 2.5 MG TABLET PO SCH ×2 (09:46→21:15)
[2021-12-29] MEDS: ATORVASTATIN CA 20 MG TABLET (FP) PO SCH (21:15)
[2021-12-29] MEDS: DOCUSATE SODIUM 100 MG CAPSULE (FP) PO SCH (21:15)
[2021-12-30] MEDS: INSULIN SLIDING SCALE (NOVOLOG) 1 VIAL SQ SCH ×4 (06:07→21:08)
[2021-12-30] MEDS ORDERED: SODIUM CHLORIDE 250 ML IV PRN ×2 (09:54→15:28)
[2021-12-30] MEDS ORDERED: EPOETIN ALFA-EPBX 10,000 UNIT/ML VIAL SQ ONE (10:00)
[2021-12-30 10:57] LABS: HEMATOCRIT 28.2 % (35.4-49); HEMOGLOBIN 9.2 GM/dL (11.7-16.9); MCHC 32.7 g/dl (32.0-35.9); MEAN PLT VOLUME 7.3 fl (7.5-11.1); PLATELET COUNT 358 10^3/uL (134-434); RDW 15.7 % (11.9-15.9); WHITE BLOOD COUNT 12.6 K/mm3 (4.0-10.0)
[2021-12-30 11:14] LABS: BLOOD UREA NITROGEN 55.9 mg/dL (7-18); CALCIUM 8.4 mg/dL (8.5-10.1)
[2021-12-30 11:18] LABS: CREATININE 3.4 mg/dL (0.55-1.3)
[2021-12-30] MEDS: FERROUS SO4 325 MG TABLET (FP) PO SCH ×2 (12:48→21:08)
[2021-12-30] MEDS: APIXABAN 2.5 MG TABLET PO SCH ×2 (12:48→21:08)
[2021-12-30] MEDS: TAMSULOSIN HCL 0.4 MG CAP PO SCH (12:49)
[2021-12-30] MEDS: DOCUSATE SODIUM 100 MG CAPSULE (FP) PO SCH (21:07)
[2021-12-30] MEDS: ATORVASTATIN CA 20 MG TABLET (FP) PO SCH (21:08)
[2021-12-31] MEDS: INSULIN SLIDING SCALE (NOVOLOG) 1 VIAL SQ SCH ×2 (06:02→11:15)
[2021-12-31] MEDS ORDERED: AMINO ACIDS/PROTEIN HYDROLYS 30 ML LIQUID.PKT PO SCH (08:00)
[2021-12-31] MEDS: TAMSULOSIN HCL 0.4 MG CAP PO SCH (10:42)
[2021-12-31] MEDS: APIXABAN 2.5 MG TABLET PO SCH (10:43)
[2021-12-31] MEDS: FERROUS SO4 325 MG TABLET (FP) PO SCH (10:43)
[2021-12-31 11:08] LABS: SARS-CoV-2 NAA Not Detected (Not Detected)
[2021-12-31 13:39] VITALS: BP 114/50; PULSE 71; TEMP 97.6
== END 2021-12-31 16:15 | DRG 264 ==
LOC: JER 14:55 → JERBED 16:43 → J5S 20:24
PROVIDERS: ADMIT Internal Medicine; ATTEND Internal Medicine
PROC: 02H633Z Insertion of Infusion Device into Right Atrium, Percutaneous Approach (ICD-10-PCS; 2021-12-20)
PROC: B548ZZA Ultrasonography of Superior Vena Cava, Guidance (ICD-10-PCS; 2021-12-20)
PROC: 5A1D70Z Performance of Urinary Filtration, Intermittent, Less than 6 Hours Per Day (ICD-10-PCS; 2021-12-20)
PROC: 03180ZF Bypass Left Brachial Artery to Lower Arm Vein, Open Approach (ICD-10-PCS; principal; 2021-12-22 15:30)
DX: I13.2 Hypertensive heart and chronic kidney disease with heart failure and with stage 5 chronic kidney disease, or end stage renal disease (principal); G93.41 Metabolic encephalopathy; I50.33 Acute on chronic diastolic (congestive) heart failure; N18.6 End stage renal disease; I24.8 Other forms of acute ischemic heart disease; N17.9 Acute kidney failure, unspecified; E11.22 Type 2 diabetes mellitus with diabetic chronic kidney disease; N18.9 Chronic kidney disease, unspecified; D63.1 Anemia in chronic kidney disease; N40.0 Benign prostatic hyperplasia without lower urinary tract symptoms; M10.9 Gout, unspecified; I48.0 Paroxysmal atrial fibrillation; I25.10 Atherosclerotic heart disease of native coronary artery without angina pectoris; G30.9 Alzheimer's disease, unspecified; I27.20 Pulmonary hypertension, unspecified; E11.51 Type 2 diabetes mellitus with diabetic peripheral angiopathy without gangrene; E66.9 Obesity, unspecified; Z68.31 Body mass index [BMI] 31.0-31.9, adult; D69.6 Thrombocytopenia, unspecified; G20 Parkinson's disease; I34.0 Nonrheumatic mitral (valve) insufficiency; I49.5 Sick sinus syndrome; Z95.0 Presence of cardiac pacemaker
CPT/HCPCS: 36415; 70450-TC; 71045-TC-FY; 76000-TC-FY; 76705-TC; 80048; 80053; 81003; 82607; 82728; 82747; 82962; 83540; 83550; 84100; 84439; 84443; 85014; 85025; 85027; 85384; 85610; 85730; 86705; 86803; 86850; 86900; 86901; 87040; 87086; 87340; 87517; 93005; 93010; 93986; 94760; 97116-GP; 97162-GP; 99285-25; C9803; J1644; Q5106; U0003; U0005

== ENCOUNTER 2022-09-08 10:56 | Observation (INO) | payer OTHER ==
[2022-09-08 13:33] LABS: BASO % 0.2 % (0-2.0); EOS % 0.5 % (0-4.5); HEMATOCRIT 30.4 % (35.4-49); HEMOGLOBIN 10.1 GM/dL (11.7-16.9); LYMPH % 16.5 % (8-40); MCHC 33.1 g/dl (32.0-35.9); MEAN CELL VOLUME 108.9 fl (80-96); MEAN PLT VOLUME 8.4 fl (7.5-11.1); MONO % 12.8 % (3.8-10.2); PLATELET COUNT 137 10^3/uL (134-434); RBC 2.79 M/mm3 (4.00-5.60); RDW 15.3 % (11.9-15.9); WHITE BLOOD COUNT 5.9 K/mm3 (4.0-10.0)
[2022-09-08 13:35] LABS: INR 2.62 (0.83-1.09); PROTHROMBIN TIME (PATIENT) 30.4 SEC (9.7-13.0)
[2022-09-08 13:46] LABS: CHLORIDE 105 mmol/L (98-107); SODIUM 139 mmol/L (136-145)
[2022-09-08 13:47] LABS: ALBUMIN 2.6 g/dl (3.4-5.0)
[2022-09-08 13:48] LABS: BLOOD UREA NITROGEN 35.6 mg/dL (7-18); CALCIUM 8.2 mg/dL (8.5-10.1)
[2022-09-08 13:49] LABS: ANION GAP 7 MMOL/L (8-16); CO2 27 mmol/L (21-32); GLUCOSE,RANDOM 142 mg/dL (74-106)
[2022-09-08 13:51] LABS: PHOSPHOROUS 3.1 mg/dL (2.5-4.9)
[2022-09-08 13:52] LABS: CREATININE 4.1 mg/dL (0.55-1.3); SGOT/AST 73 U/L (15-37); SGPT/ALT 22 U/L (13-61)
[2022-09-08 13:54] LABS: ALK PHOS 92 U/L (45-117); BILIRUBIN,TOTAL 0.5 mg/dL (0.2-1)
[2022-09-08 14:02] LABS: ANISOCYTOSIS 1+; MACROCYTOSIS 1+; PLATELET ESTIMATE DECREASED
[2022-09-08] MEDS ORDERED: AZITHROMYCIN IVPB 500 MG in DEXTROSE 5%-WATER - 250 ML IVPB ONE (22:55)
[2022-09-09] MEDS: CEFTRIAXONE 1 GM in DEXTROSE 5%-WATER - 50 ML IVPB SCH ×2 (04:27→11:58)
[2022-09-09] MEDS ORDERED: AZITHROMYCIN IVPB 500 MG/250 ML BAG IVPB ONE (04:31)
[2022-09-09] MEDS ORDERED: cefTRIAXone SODIUM 1 GM VIAL ONE (04:31)
[2022-09-09 07:25] LABS: BASO % 0.3 % (0-2.0); EOS % 0.3 % (0-4.5); HEMATOCRIT 31.3 % (35.4-49); HEMOGLOBIN 10.3 GM/dL (11.7-16.9); LYMPH % 13.9 % (8-40); MCH 35.4 pg (25.7-33.7); MCHC 32.8 g/dl (32.0-35.9); MEAN CELL VOLUME 107.8 fl (80-96); MEAN PLT VOLUME 8.1 fl (7.5-11.1); MONO % 8.4 % (3.8-10.2); NEUT % 77.1 % (42.8-82.8); PLATELET COUNT 151 10^3/uL (134-434); RDW 15.2 % (11.9-15.9); WHITE BLOOD COUNT 6.1 K/mm3 (4.0-10.0)
[2022-09-09] MEDS: INSULIN SLIDING SCALE (NOVOLOG) 1 VIAL SQ SCH ×5 (08:08→23:11)
[2022-09-09] MEDS ORDERED: TAMSULOSIN HCL 0.4 MG CAP ONE (10:14)
[2022-09-09] MEDS ORDERED: APIXABAN 2.5 MG TABLET ONE (10:14)
[2022-09-09] MEDS ORDERED: DEXAMETHASONE SOD PHOSPHATE 10 MG/1 ML VIAL ONE (10:14)
[2022-09-09] MEDS ORDERED: metoPROLOL SUCCINATE 25 MG TAB.SR.24H (FP) PO ONE (10:15)
[2022-09-09] MEDS ORDERED: CEFTRIAXONE 1 GM/50 ML BAG ONE (10:15)
[2022-09-09] MEDS: APIXABAN 2.5 MG TABLET PO SCH ×2 (11:58→22:00)
[2022-09-09] MEDS: metoPROLOL SUCCINATE 25 MG TAB.SR.24H (FP) PO SCH (11:58)
[2022-09-09] MEDS: TAMSULOSIN HCL 0.4 MG CAP PO SCH (11:58)
[2022-09-09] MEDS: DEXAMETHASONE SOD PHOSPHATE 10 MG/1 ML VIAL IVPUSH SCH (11:58)
[2022-09-09 15:02] LABS: HEMATOCRIT 31.6 % (35.4-49); HEMOGLOBIN 10.5 GM/dL (11.7-16.9); MCH 35.8 pg (25.7-33.7); MEAN CELL VOLUME 108.4 fl (80-96); MEAN PLT VOLUME 7.9 fl (7.5-11.1); PLATELET COUNT 145 10^3/uL (134-434); RBC 2.92 M/mm3 (4.00-5.60); RDW 15.3 % (11.9-15.9); WHITE BLOOD COUNT 6.5 K/mm3 (4.0-10.0)
[2022-09-09] MEDS ORDERED: SODIUM CHLORIDE 250 ML IV PRN (15:08)
[2022-09-09] MEDS ORDERED: EPOETIN ALFA-EPBX 4,000 UNIT/ML VIAL SQ ONE (15:15)
[2022-09-09 18:37] VITALS: BMI 27.2
[2022-09-09] MEDS: ATORVASTATIN CA 20 MG TABLET (FP) PO SCH (22:00)
[2022-09-10] MEDS: INSULIN SLIDING SCALE (NOVOLOG) 1 VIAL SQ SCH ×4 (06:52→22:09)
[2022-09-10 07:52] LABS: BASO % 0.1 % (0-2.0); HEMATOCRIT 29.7 % (35.4-49); HEMOGLOBIN 10.1 GM/dL (11.7-16.9); LYMPH % 12.8 % (8-40); MCH 36.1 pg (25.7-33.7); MEAN CELL VOLUME 106.3 fl (80-96); MEAN PLT VOLUME 7.8 fl (7.5-11.1); MONO % 8.5 % (3.8-10.2); NEUT % 78.6 % (42.8-82.8); PLATELET COUNT 147 10^3/uL (134-434); RDW 15.4 % (11.9-15.9); WHITE BLOOD COUNT 6.4 K/mm3 (4.0-10.0)
[2022-09-10 08:41] LABS: ALBUMIN 2.6 g/dl (3.4-5.0); BLOOD UREA NITROGEN 34.6 mg/dL (7-18); CALCIUM 8.5 mg/dL (8.5-10.1)
[2022-09-10 08:44] LABS: CREATININE 3.7 mg/dL (0.55-1.3)
[2022-09-10 08:46] LABS: BILIRUBIN,TOTAL 0.4 mg/dL (0.2-1)
[2022-09-10 08:48] LABS: TOT PROT 6.4 g/dl (6.4-8.2)
[2022-09-10] MEDS: DEXAMETHASONE SOD PHOSPHATE 10 MG/1 ML VIAL IVPUSH SCH (09:53)
[2022-09-10] MEDS: CEFTRIAXONE 1 GM in DEXTROSE 5%-WATER - 50 ML IVPB SCH (09:53)
[2022-09-10] MEDS: TAMSULOSIN HCL 0.4 MG CAP PO SCH (09:53)
[2022-09-10] MEDS: metoPROLOL SUCCINATE 25 MG TAB.SR.24H (FP) PO SCH (09:53)
[2022-09-10] MEDS: APIXABAN 2.5 MG TABLET PO SCH ×2 (09:53→22:08)
[2022-09-10] MEDS: ATORVASTATIN CA 20 MG TABLET (FP) PO SCH (22:08)
[2022-09-11] MEDS: INSULIN SLIDING SCALE (NOVOLOG) 1 VIAL SQ SCH ×4 (06:53→21:44)
[2022-09-11 09:02] LABS: BASO % 0.2 % (0-2.0); HEMATOCRIT 33.2 % (35.4-49); LYMPH % 6.6 % (8-40); MCH 35.6 pg (25.7-33.7); MCHC 33.2 g/dl (32.0-35.9); MEAN CELL VOLUME 107.1 fl (80-96); MEAN PLT VOLUME 7.8 fl (7.5-11.1); MONO % 4.4 % (3.8-10.2); NEUT % 88.8 % (42.8-82.8); PLATELET COUNT 181 10^3/uL (134-434); RDW 14.9 % (11.9-15.9); WHITE BLOOD COUNT 14.3 K/mm3 (4.0-10.0)
[2022-09-11] MEDS: TAMSULOSIN HCL 0.4 MG CAP PO SCH (09:16)
[2022-09-11] MEDS: APIXABAN 2.5 MG TABLET PO SCH ×2 (09:16→21:40)
[2022-09-11] MEDS: DEXAMETHASONE SOD PHOSPHATE 10 MG/1 ML VIAL IVPUSH SCH (09:16)
[2022-09-11 09:17] LABS: CALCIUM 8.8 mg/dL (8.5-10.1)
[2022-09-11] MEDS: metoPROLOL SUCCINATE 25 MG TAB.SR.24H (FP) PO SCH (09:17)
[2022-09-11] MEDS: CEFTRIAXONE 1 GM in DEXTROSE 5%-WATER - 50 ML IVPB SCH (09:17)
[2022-09-11 09:21] LABS: CREATININE 4.4 mg/dL (0.55-1.3)
[2022-09-11 09:22] LABS: BILIRUBIN,TOTAL 0.5 mg/dL (0.2-1); TOT PROT 7.5 g/dl (6.4-8.2)
[2022-09-11] MEDS ORDERED: SODIUM CHLORIDE 250 ML IV PRN (10:45)
[2022-09-11] MEDS: ATORVASTATIN CA 20 MG TABLET (FP) PO SCH (21:41)
[2022-09-12] MEDS: INSULIN SLIDING SCALE (NOVOLOG) 1 VIAL SQ SCH ×4 (06:34→22:17)
[2022-09-12] MEDS: DEXAMETHASONE SOD PHOSPHATE 10 MG/1 ML VIAL IVPUSH SCH (09:46)
[2022-09-12] MEDS: TAMSULOSIN HCL 0.4 MG CAP PO SCH (09:46)
[2022-09-12] MEDS: metoPROLOL SUCCINATE 25 MG TAB.SR.24H (FP) PO SCH (09:46)
[2022-09-12] MEDS: CEFTRIAXONE 1 GM in DEXTROSE 5%-WATER - 50 ML IVPB SCH (09:46)
[2022-09-12] MEDS: APIXABAN 2.5 MG TABLET PO SCH ×2 (09:46→22:17)
[2022-09-12] MEDS ORDERED: HEPARIN NA (PORCINE) 5,000 UNITS/ML 1ML VIAL IVPUSH ONE (13:45)
[2022-09-12 15:01] LABS: HEMATOCRIT 32.2 % (35.4-49); HEMOGLOBIN 10.7 GM/dL (11.7-16.9); MCH 35.7 pg (25.7-33.7); MCHC 33.3 g/dl (32.0-35.9); MEAN CELL VOLUME 107.2 fl (80-96); MEAN PLT VOLUME 7.9 fl (7.5-11.1); PLATELET COUNT 178 10^3/uL (134-434); RDW 15.3 % (11.9-15.9); WHITE BLOOD COUNT 16.6 K/mm3 (4.0-10.0)
[2022-09-12 15:29] LABS: ALBUMIN 2.9 g/dl (3.4-5.0); BLOOD UREA NITROGEN 66.1 mg/dL (7-18); CALCIUM 8.4 mg/dL (8.5-10.1)
[2022-09-12 15:32] LABS: CREATININE 4.6 mg/dL (0.55-1.3)
[2022-09-12 15:34] LABS: BILIRUBIN,TOTAL 0.4 mg/dL (0.2-1); TOT PROT 7.1 g/dl (6.4-8.2)
[2022-09-12] MEDS: MECLIZINE HCL 25 MG TABLET (FP) PO PRN (22:17)
[2022-09-12] MEDS: ATORVASTATIN CA 20 MG TABLET (FP) PO SCH (22:17)
[2022-09-13] MEDS: INSULIN SLIDING SCALE (NOVOLOG) 1 VIAL SQ SCH ×4 (06:17→21:50)
[2022-09-13] MEDS: TAMSULOSIN HCL 0.4 MG CAP PO SCH (09:37)
[2022-09-13] MEDS: APIXABAN 2.5 MG TABLET PO SCH ×2 (09:37→21:43)
[2022-09-13] MEDS: DEXAMETHASONE SOD PHOSPHATE 10 MG/1 ML VIAL IVPUSH SCH (09:37)
[2022-09-13] MEDS: CEFTRIAXONE 1 GM in DEXTROSE 5%-WATER - 50 ML IVPB SCH (09:37)
[2022-09-13] MEDS: metoPROLOL SUCCINATE 25 MG TAB.SR.24H (FP) PO SCH (09:37)
[2022-09-13] MEDS: ATORVASTATIN CA 20 MG TABLET (FP) PO SCH (21:43)
[2022-09-13] MEDS: MECLIZINE HCL 25 MG TABLET (FP) PO PRN (21:43)
[2022-09-14 03:17] VITALS: RESP 18
[2022-09-14] MEDS: INSULIN SLIDING SCALE (NOVOLOG) 1 VIAL SQ SCH ×3 (06:08→16:39)
[2022-09-14] MEDS: TAMSULOSIN HCL 0.4 MG CAP PO SCH (09:30)
[2022-09-14] MEDS: APIXABAN 2.5 MG TABLET PO SCH (09:31)
[2022-09-14] MEDS: DEXAMETHASONE SOD PHOSPHATE 10 MG/1 ML VIAL IVPUSH SCH (09:31)
[2022-09-14] MEDS: CEFTRIAXONE 1 GM in DEXTROSE 5%-WATER - 50 ML IVPB SCH (09:32)
[2022-09-14] MEDS: metoPROLOL SUCCINATE 25 MG TAB.SR.24H (FP) PO SCH (10:59)
[2022-09-14] MEDS ORDERED: SODIUM CHLORIDE 250 ML IV PRN (14:57)
[2022-09-14] MEDS ORDERED: HEPARIN NA (PORCINE) 5,000 UNITS/ML 1ML VIAL IVPUSH ONE (15:00)
[2022-09-14 15:24] LABS: MCH 35.4 pg (25.7-33.7); MCHC 33.2 g/dl (32.0-35.9); MEAN CELL VOLUME 106.4 fl (80-96); MEAN PLT VOLUME 7.3 fl (7.5-11.1); PLATELET COUNT 192 10^3/uL (134-434); RBC 3.11 M/mm3 (4.00-5.60); RDW 15.3 % (11.9-15.9); WHITE BLOOD COUNT 12.9 K/mm3 (4.0-10.0)
[2022-09-14] MEDS ORDERED: EPOETIN ALFA-EPBX 3,000 UNIT/ML VIAL IVPUSH ONE (15:30)
[2022-09-14 15:51] LABS: BLOOD UREA NITROGEN 65.1 mg/dL (7-18); CALCIUM 8.6 mg/dL (8.5-10.1)
[2022-09-14 18:49] VITALS: BP 102/54; PULSE 74; TEMP 98.2
== END 2022-09-14 18:52 | disposition home health service (06) | DRG 177 ==
LOC: JER 10:56 → INTOOBSV 15:01 → JERBED 15:01 → J4S 09-09 17:50
PROVIDERS: ADMIT Internal Medicine; ATTEND Internal Medicine
PROC: 3E0333Z Introduction of Anti-inflammatory into Peripheral Vein, Percutaneous Approach (ICD-10-PCS; principal; 2022-09-09)
PROC: 5A1D70Z Performance of Urinary Filtration, Intermittent, Less than 6 Hours Per Day (ICD-10-PCS; 2022-09-09)
PROC: 5A1D70Z Performance of Urinary Filtration, Intermittent, Less than 6 Hours Per Day (ICD-10-PCS; 2022-09-09)
PROC: 5A1D70Z Performance of Urinary Filtration, Intermittent, Less than 6 Hours Per Day (ICD-10-PCS; 2022-09-09)
DX: U07.1 COVID-19 (principal); J12.82 Pneumonia due to coronavirus disease 2019; N18.6 End stage renal disease; I13.2 Hypertensive heart and chronic kidney disease with heart failure and with stage 5 chronic kidney disease, or end stage renal disease; I50.42 Chronic combined systolic (congestive) and diastolic (congestive) heart failure; E78.00 Pure hypercholesterolemia, unspecified; K21.9 Gastro-esophageal reflux disease without esophagitis; M10.9 Gout, unspecified; N40.0 Benign prostatic hyperplasia without lower urinary tract symptoms; I25.119 Atherosclerotic heart disease of native coronary artery with unspecified angina pectoris; J20.9 Acute bronchitis, unspecified; D63.1 Anemia in chronic kidney disease; E05.90 Thyrotoxicosis, unspecified without thyrotoxic crisis or storm; I48.0 Paroxysmal atrial fibrillation; E11.51 Type 2 diabetes mellitus with diabetic peripheral angiopathy without gangrene; I65.29 Occlusion and stenosis of unspecified carotid artery; I34.0 Nonrheumatic mitral (valve) insufficiency; E11.22 Type 2 diabetes mellitus with diabetic chronic kidney disease; Z99.2 Dependence on renal dialysis; Z95.5 Presence of coronary angioplasty implant and graft; Z95.0 Presence of cardiac pacemaker; Z96.653 Presence of artificial knee joint, bilateral
CPT/HCPCS: 0241U-QW; 36415; 71045-TC-FY; 80048; 80053; 82550; 82553; 82962; 83735; 84100; 84484; 85025; 85027; 85379; 85610; 86140; 86803; 87340; 87517; 93005; 93010; 97116-GP; 97161-GP; 99285-25; G0378; J1100; J1644; Q5106

== ENCOUNTER 2022-10-27 04:20 | Day surgery (SDC) | payer OTHER ==
[2022-10-27] MEDS ORDERED: HEPARIN NA (PORCINE) 5,000 UNITS/ML 1ML VIAL ONE (10:42)
[2022-10-27] MEDS ORDERED: LIDOCAINE HCL 1%, 10 MG/ML (20ML VIAL) ONE (10:42)
[2022-10-27] MEDS ORDERED: FENTANYL CITRATE/PF 50 MCG/ML VIAL ONE (11:13)
[2022-10-27] MEDS ORDERED: MIDAZOLAM HCL 2 MG/2 ML SINGLE DOSE VIAL ONE (11:13)
[2022-10-27] MEDS ORDERED: ceFAZolin SODIUM 1 GM VIAL ONE (11:31)
[2022-10-27] MEDS ORDERED: ceFAZolin SODIUM 1 GM VIAL IVPB ONE (11:35)
[2022-10-27] MEDS ORDERED: LIDOCAINE HCL 1%, 10 MG/ML (20ML VIAL) INF ONE ×2 (11:39)
[2022-10-27] MEDS ORDERED: ONDANSETRON 4 MG/2 ML VIAL IVPUSH PRN (12:06)
[2022-10-27] MEDS ORDERED: SODIUM CHLORIDE 1,000 ML IV SCH (12:15)
[2022-10-27 13:20] VITALS: RESP 18; TEMP 97.3
[2022-10-27 13:33] VITALS: BP 127/60; PULSE 72
== END 2022-10-27 13:34 | disposition home or self-care (01) ==
LOC: JASU-SURG 04:20
PROVIDERS: ATTEND Surgery Vascular Surgery
PROC: B51MZZZ Fluoroscopy of Right Upper Extremity Veins (ICD-10-PCS; principal; 2022-10-27 11:30)
DX: T82.858A Stenosis of other vascular prosthetic devices, implants and grafts, initial encounter (principal); I12.0 Hypertensive chronic kidney disease with stage 5 chronic kidney disease or end stage renal disease; E11.22 Type 2 diabetes mellitus with diabetic chronic kidney disease; N18.6 End stage renal disease; Z99.2 Dependence on renal dialysis
CPT/HCPCS: 76000-TC-FY; 82962; 94760; J1644

== ENCOUNTER 2022-10-28 15:35 | Observation (INO) | payer OTHER ==
[2022-10-28 16:06] VITALS: BMI 28.8
[2022-10-28 17:18] LABS: BASO % 0.3 % (0-2.0); EOS % 0.4 % (0-4.5); HEMATOCRIT 25.2 % (35.4-49); HEMOGLOBIN 7.7 GM/dL (11.7-16.9); LYMPH % 10.6 % (8-40); MCH 33.9 pg (25.7-33.7); MCHC 30.5 g/dl (32.0-35.9); MEAN CELL VOLUME 111.1 fl (80-96); MEAN PLT VOLUME 7.5 fl (7.5-11.1); NEUT % 81.7 % (42.8-82.8); PLATELET COUNT 139 10^3/uL (134-434); RBC 2.27 M/mm3 (4.00-5.60); RDW 19.2 % (11.9-15.9); WHITE BLOOD COUNT 9.8 K/mm3 (4.0-10.0)
[2022-10-28 17:31] LABS: INR 2.53 (0.83-1.09); PROTHROMBIN TIME (PATIENT) 29.4 SEC (9.7-13.0)
[2022-10-28 17:33] LABS: CALCIUM 8.5 mg/dL (8.5-10.1)
[2022-10-28 17:34] LABS: ALBUMIN 2.8 g/dl (3.4-5.0)
[2022-10-28 17:37] LABS: CREATININE 4.6 mg/dL (0.55-1.3); PHOSPHOROUS 4.1 mg/dL (2.5-4.9)
[2022-10-28 17:38] LABS: BILIRUBIN,TOTAL 0.5 mg/dL (0.2-1); TOT PROT 6.6 g/dl (6.4-8.2)
[2022-10-28] MEDS ORDERED: SODIUM CHLORIDE 250 ML IV PRN (17:48)
[2022-10-28 17:59] LABS: ANISOCYTOSIS 2+; MACROCYTOSIS 2+
[2022-10-28] MEDS ORDERED: LIDOCAINE 5% TOPICAL PATCH TP ONE (18:03)
[2022-10-28] MEDS ORDERED: ACETAMINOPHEN 1000 MG/100 ML BAG IVPB ONE (18:03)
[2022-10-28] MEDS ORDERED: ACETAMINOPHEN INJECTION 100 ML IVPB ONE (21:32)
[2022-10-28] MEDS ORDERED: LIDOCAINE 5% TOPICAL PATCH ONE (21:32)
[2022-10-29] MEDS ORDERED: MECLIZINE HCL 25 MG TABLET (FP) PO PRN (02:37)
[2022-10-29] MEDS: INSULIN SLIDING SCALE (NOVOLOG) 1 VIAL SQ SCH ×4 (07:31→22:10)
[2022-10-29] MEDS: INSULIN (LEVEMIR) 100 UNITS/ML UNITS SQ SCH ×2 (09:00→22:09)
[2022-10-29] MEDS ORDERED: APIXABAN 2.5 MG TABLET ONE (10:55)
[2022-10-29] MEDS ORDERED: FERROUS SO4 325 MG TABLET (FP) ONE (10:55)
[2022-10-29] MEDS ORDERED: TAMSULOSIN HCL 0.4 MG CAP ONE (10:55)
[2022-10-29] MEDS ORDERED: ESCITALOPRAM OXALATE 10 MG TABLET ONE (10:55)
[2022-10-29] MEDS ORDERED: PANTOPRAZOLE 40 MG TABLET PO ONE (10:56)
[2022-10-29] MEDS ORDERED: PANTOPRAZOLE SODIUM 40 MG VIAL ONE (10:56)
[2022-10-29] MEDS: ESCITALOPRAM OXALATE 10 MG TABLET PO SCH (11:09)
[2022-10-29] MEDS: PANTOPRAZOLE 40 MG TABLET PO SCH (11:09)
[2022-10-29] MEDS: FERROUS SO4 325 MG TABLET (FP) PO SCH (11:10)
[2022-10-29] MEDS: TAMSULOSIN HCL 0.4 MG CAP PO SCH (11:10)
[2022-10-29] MEDS: APIXABAN 2.5 MG TABLET PO SCH ×2 (11:10→22:10)
[2022-10-29 12:15] LABS: BASO % 1.2 % (0-2.0); EOS % 0.8 % (0-4.5); HEMATOCRIT 24.9 % (35.4-49); HEMOGLOBIN 7.7 GM/dL (11.7-16.9); LYMPH % 14.2 % (8-40); MCH 34.4 pg (25.7-33.7); MCHC 30.8 g/dl (32.0-35.9); MEAN CELL VOLUME 111.8 fl (80-96); MEAN PLT VOLUME 7.5 fl (7.5-11.1); MONO % 7.6 % (3.8-10.2); NEUT % 76.2 % (42.8-82.8); PLATELET COUNT 135 10^3/uL (134-434); RBC 2.23 M/mm3 (4.00-5.60); RDW 19.5 % (11.9-15.9); WHITE BLOOD COUNT 9.3 K/mm3 (4.0-10.0)
[2022-10-29 12:29] LABS: ALBUMIN 2.7 g/dl (3.4-5.0); CALCIUM 8.2 mg/dL (8.5-10.1)
[2022-10-29 12:33] LABS: CREATININE 4.1 mg/dL (0.55-1.3)
[2022-10-29 12:34] LABS: BILIRUBIN,TOTAL 0.4 mg/dL (0.2-1); TOT PROT 6.5 g/dl (6.4-8.2)
[2022-10-29] MEDS ORDERED: ACETAMINOPHEN 325 MG TABLET (FP) ONE (13:24)
[2022-10-29] MEDS: ACETAMINOPHEN 325 MG TABLET (FP) PO PRN (13:36)
[2022-10-29] MEDS: ATORVASTATIN CA 20 MG TABLET (FP) PO SCH (22:10)
[2022-10-30] MEDS: INSULIN SLIDING SCALE (NOVOLOG) 1 VIAL SQ SCH ×4 (06:42→21:22)
[2022-10-30] MEDS: INSULIN (LEVEMIR) 100 UNITS/ML UNITS SQ SCH ×2 (06:42→21:22)
[2022-10-30] MEDS: APIXABAN 2.5 MG TABLET PO SCH ×2 (09:26→21:21)
[2022-10-30] MEDS: ESCITALOPRAM OXALATE 10 MG TABLET PO SCH (09:26)
[2022-10-30] MEDS: PANTOPRAZOLE 40 MG TABLET PO SCH (09:26)
[2022-10-30] MEDS: TAMSULOSIN HCL 0.4 MG CAP PO SCH (09:26)
[2022-10-30] MEDS: FERROUS SO4 325 MG TABLET (FP) PO SCH (09:26)
[2022-10-30] MEDS ORDERED: TORSEMIDE 20 MG TABLET (FP) PO SCH (13:30)
[2022-10-30] MEDS: ATORVASTATIN CA 20 MG TABLET (FP) PO SCH (21:21)
[2022-10-31] MEDS: INSULIN (LEVEMIR) 100 UNITS/ML UNITS SQ SCH ×2 (06:22→21:17)
[2022-10-31] MEDS: INSULIN SLIDING SCALE (NOVOLOG) 1 VIAL SQ SCH ×4 (06:22→21:17)
[2022-10-31] MEDS ORDERED: SODIUM CHLORIDE 250 ML IV PRN (07:49)
[2022-10-31 09:32] LABS: HEMATOCRIT 24.9 % (35.4-49); HEMOGLOBIN 7.9 GM/dL (11.7-16.9); MCH 35.1 pg (25.7-33.7); MCHC 31.7 g/dl (32.0-35.9); MEAN CELL VOLUME 110.6 fl (80-96); MEAN PLT VOLUME 7.9 fl (7.5-11.1); PLATELET COUNT 149 10^3/uL (134-434); RBC 2.25 M/mm3 (4.00-5.60); RDW 18.8 % (11.9-15.9); WHITE BLOOD COUNT 9.2 K/mm3 (4.0-10.0)
[2022-10-31 09:53] LABS: ALBUMIN 2.9 g/dl (3.4-5.0); BLOOD UREA NITROGEN 43.7 mg/dL (7-18); CALCIUM 8.2 mg/dL (8.5-10.1)
[2022-10-31 09:56] LABS: PHOSPHOROUS 4.9 mg/dL (2.5-4.9)
[2022-10-31 09:58] LABS: BILIRUBIN,TOTAL 0.5 mg/dL (0.2-1); TOT PROT 6.6 g/dl (6.4-8.2)
[2022-10-31] MEDS ORDERED: EPOETIN ALFA-EPBX 20,000 UNIT/ML VIAL IVPUSH ONE (10:00)
[2022-10-31] MEDS: APIXABAN 2.5 MG TABLET PO SCH ×2 (12:04→21:15)
[2022-10-31] MEDS: TAMSULOSIN HCL 0.4 MG CAP PO SCH (12:04)
[2022-10-31] MEDS: FERROUS SO4 325 MG TABLET (FP) PO SCH (12:04)
[2022-10-31] MEDS: PANTOPRAZOLE 40 MG TABLET PO SCH (12:05)
[2022-10-31] MEDS: ESCITALOPRAM OXALATE 10 MG TABLET PO SCH (12:05)
[2022-10-31] MEDS: ATORVASTATIN CA 20 MG TABLET (FP) PO SCH (21:14)
[2022-10-31] MEDS: ACETAMINOPHEN 325 MG TABLET (FP) PO PRN (21:14)
[2022-11-01 06:33] VITALS: PULSE 70
[2022-11-01] MEDS: INSULIN SLIDING SCALE (NOVOLOG) 1 VIAL SQ SCH ×2 (07:40→11:39)
[2022-11-01] MEDS: INSULIN (LEVEMIR) 100 UNITS/ML UNITS SQ SCH (07:40)
[2022-11-01] MEDS: TAMSULOSIN HCL 0.4 MG CAP PO SCH (11:33)
[2022-11-01] MEDS: ESCITALOPRAM OXALATE 10 MG TABLET PO SCH (11:34)
[2022-11-01] MEDS: APIXABAN 2.5 MG TABLET PO SCH (11:34)
[2022-11-01] MEDS: PANTOPRAZOLE 40 MG TABLET PO SCH (11:34)
[2022-11-01] MEDS: FERROUS SO4 325 MG TABLET (FP) PO SCH (11:34)
[2022-11-01 12:34] VITALS: BP 116/55; RESP 20; TEMP 98.3
== END 2022-11-01 13:48 | disposition home or self-care (01) ==
LOC: JER 15:35 → UNDOADMOB 18:00 → JERBED 18:00 → OBSVTOIN 10-29 02:16 → INTOOBSV 10-29 02:16 → OBSVTOIN 10-29 02:36 → UNDOADMOB 10-29 02:36 → JERBED 10-29 02:36 → INTOOBSV 10-29 02:36 → JERBED 10-29 19:04 → J5S 10-29 19:04 → JERBED 10-31 10:46
PROVIDERS: ADMIT Internal Medicine; ATTEND Internal Medicine
PROC: 3E033NZ Introduction of Analgesics, Hypnotics, Sedatives into Peripheral Vein, Percutaneous Approach (ICD-10-PCS; principal; 2022-10-31)
PROC: 3E033GC Introduction of Other Therapeutic Substance into Peripheral Vein, Percutaneous Approach (ICD-10-PCS; 2022-10-31)
PROC: 30233N1 Transfusion of Nonautologous Red Blood Cells into Peripheral Vein, Percutaneous Approach (ICD-10-PCS; 2022-10-31)
DX: M54.2 Cervicalgia (principal); W00.9XXA Unspecified fall due to ice and snow, initial encounter; Y93.89 Activity, other specified; G20 Parkinson's disease; Y92.239 Unspecified place in hospital as the place of occurrence of the external cause; E11.22 Type 2 diabetes mellitus with diabetic chronic kidney disease; N18.6 End stage renal disease; N18.9 Chronic kidney disease, unspecified; I48.0 Paroxysmal atrial fibrillation; I11.0 Hypertensive heart disease with heart failure; I50.9 Heart failure, unspecified; Z79.01 Long term (current) use of anticoagulants; E78.5 Hyperlipidemia, unspecified; I25.10 Atherosclerotic heart disease of native coronary artery without angina pectoris; Z95.0 Presence of cardiac pacemaker; N40.0 Benign prostatic hyperplasia without lower urinary tract symptoms; Z87.891 Personal history of nicotine dependence; M19.90 Unspecified osteoarthritis, unspecified site; D64.9 Anemia, unspecified; Z96.653 Presence of artificial knee joint, bilateral; Z95.1 Presence of aortocoronary bypass graft; K85.90 Acute pancreatitis without necrosis or infection, unspecified
CPT/HCPCS: 36415; 36430; 70450-TC; 71045-TC-FY; 72125-TC; 72170-TC-FY; 73030-TC-LT-FY; 73521-TC-FY; 80053; 82962; 83735; 84100; 85025; 85027; 85610; 85730; 86850; 86900; 86901; 86922; 87340; 87517; 93005; 93010; 96374; 96375; 97116-GP; 97162-GP; 99285-25; C9803-CS; G0378; P9058; U0003; U0005

== ENCOUNTER 2022-12-14 12:48 | Inpatient (IN) | payer OTHER ==
[2022-12-14 15:08] LABS: BASO % 0.4 % (0-2.0); EOS % 0.1 % (0-4.5); HEMATOCRIT 18.5 % (35.4-49); LYMPH % 7.5 % (8-40); MCH 35.9 pg (25.7-33.7); MCHC 33.5 g/dl (32.0-35.9); MEAN CELL VOLUME 107.1 fl (80-96); MEAN PLT VOLUME 7.3 fl (7.5-11.1); PLATELET COUNT 126 10^3/uL (134-434); RBC 1.73 M/mm3 (4.00-5.60); RDW 19.1 % (11.9-15.9); WHITE BLOOD COUNT 7.4 K/mm3 (4.0-10.0)
[2022-12-14 15:10] LABS: HEMOGLOBIN 6.2 GM/dL (11.7-16.9)
[2022-12-14 15:14] LABS: INR 3.04 (0.83-1.09); PROTHROMBIN TIME (PATIENT) 34.9 SEC (9.7-13.0)
[2022-12-14 15:37] LABS: CHLORIDE 101 mmol/L (98-107); SODIUM 133 mmol/L (136-145)
[2022-12-14 15:40] LABS: ALBUMIN 2.8 g/dl (3.4-5.0); ANION GAP 10 MMOL/L (8-16); BLOOD UREA NITROGEN 102.8 mg/dL (7-18); CALCIUM 8.1 mg/dL (8.5-10.1); CO2 23 mmol/L (21-32); GLUCOSE,RANDOM 203 mg/dL (74-106); MAGNESIUM 2.2 mg/dL (1.8-2.4)
[2022-12-14 15:43] LABS: CREATININE 5.7 mg/dL (0.55-1.3); PHOSPHOROUS 4.7 mg/dL (2.5-4.9); SGOT/AST 28 U/L (15-37); SGPT/ALT 18 U/L (13-61)
[2022-12-14 15:44] LABS: ANISOCYTOSIS 2+; MACROCYTOSIS 1+
[2022-12-14 15:45] LABS: BILIRUBIN,TOTAL 0.4 mg/dL (0.2-1); TOT PROT 6.3 g/dl (6.4-8.2)
[2022-12-14 15:46] LABS: ALK PHOS 73 U/L (45-117)
[2022-12-14] MEDS ORDERED: SODIUM ZIRCONIUM CYCLOSILICATE (LOKELMA) 5 GM PACKET PO ONE (16:01)
[2022-12-14] MEDS ORDERED: SODIUM ZIRCONIUM CYCLOSILICATE (LOKELMA) 5 GM PACKET ONE (16:55)
[2022-12-14] MEDS ORDERED: FUROSEMIDE 100 MG/10 ML INJECTABLE VIAL IVPB ONE (19:08)
[2022-12-14] MEDS ORDERED: APIXABAN 2.5 MG TABLET ONE (22:43)
[2022-12-14] MEDS ORDERED: PANTOPRAZOLE 20 MG TABLET PO ONE (22:43)
[2022-12-14] MEDS ORDERED: ATORVASTATIN CA 20 MG TABLET (FP) ONE (22:43)
[2022-12-14] MEDS ORDERED: FUROSEMIDE 40 MG/4 ML INJECTABLE VIAL ONE (22:43)
[2022-12-14] MEDS: PANTOPRAZOLE 20 MG TABLET PO SCH (22:52)
[2022-12-14] MEDS: ATORVASTATIN CA 20 MG TABLET (FP) PO SCH (22:52)
[2022-12-14] MEDS: APIXABAN 2.5 MG TABLET PO SCH (22:52)
[2022-12-14 23:03] LABS: BASO % 0.5 % (0-2.0); EOS % 0.2 % (0-4.5); HEMATOCRIT 20.3 % (35.4-49); LYMPH % 12.9 % (8-40); MCH 34.5 pg (25.7-33.7); MEAN CELL VOLUME 101.6 fl (80-96); MEAN PLT VOLUME 7.3 fl (7.5-11.1); MONO % 8.7 % (3.8-10.2); NEUT % 77.7 % (42.8-82.8); PLATELET COUNT 132 10^3/uL (134-434); RBC 1.99 M/mm3 (4.00-5.60); RDW 21.4 % (11.9-15.9)
[2022-12-14 23:16] LABS: HEMOGLOBIN 6.9 GM/dL (11.7-16.9)
[2022-12-15 08:24] LABS: BASO % 0.6 % (0-2.0); EOS % 0.1 % (0-4.5); HEMATOCRIT 20.2 % (35.4-49); LYMPH % 10.5 % (8-40); MCH 35.3 pg (25.7-33.7); MCHC 34.1 g/dl (32.0-35.9); MEAN CELL VOLUME 103.5 fl (80-96); MEAN PLT VOLUME 7.7 fl (7.5-11.1); MONO % 7.1 % (3.8-10.2); NEUT % 81.7 % (42.8-82.8); PLATELET COUNT 155 10^3/uL (134-434); RBC 1.95 M/mm3 (4.00-5.60); RDW 21.2 % (11.9-15.9); WHITE BLOOD COUNT 9.1 K/mm3 (4.0-10.0)
[2022-12-15 08:31] LABS: CHLORIDE 101 mmol/L (98-107); SODIUM 136 mmol/L (136-145)
[2022-12-15 08:33] LABS: CALCIUM 8.4 mg/dL (8.5-10.1)
[2022-12-15 08:34] LABS: ALBUMIN 2.8 g/dl (3.4-5.0); ANION GAP 12 MMOL/L (8-16); CO2 23 mmol/L (21-32); GLUCOSE,RANDOM 162 mg/dL (74-106)
[2022-12-15 08:38] LABS: BILIRUBIN,TOTAL 0.7 mg/dL (0.2-1); CREATININE 5.8 mg/dL (0.55-1.3); SGOT/AST 25 U/L (15-37); SGPT/ALT 19 U/L (13-61); TOT PROT 6.4 g/dl (6.4-8.2)
[2022-12-15 08:40] LABS: ALK PHOS 72 U/L (45-117)
[2022-12-15 08:45] LABS: BLOOD UREA NITROGEN 110.8 mg/dL (7-18)
[2022-12-15 09:50] LABS: HEMOGLOBIN 6.9 GM/dL (11.7-16.9)
[2022-12-15] MEDS: APIXABAN 2.5 MG TABLET PO SCH (11:55)
[2022-12-15] MEDS: TAMSULOSIN HCL 0.4 MG CAP PO SCH (11:55)
[2022-12-15] MEDS: FERROUS SO4 325 MG TABLET (FP) PO SCH (11:56)
[2022-12-15] MEDS: PANTOPRAZOLE 20 MG TABLET PO SCH ×2 (11:56→21:52)
[2022-12-15] MEDS: ESCITALOPRAM OXALATE 10 MG TABLET PO SCH (11:56)
[2022-12-15] MEDS: INSULIN (LEVEMIR) 100 UNITS/ML UNITS SQ SCH ×2 (12:25→21:46)
[2022-12-15] MEDS ORDERED: SODIUM CHLORIDE 250 ML IV PRN ×2 (13:50→14:27)
[2022-12-15] MEDS ORDERED: EPOETIN ALFA-EPBX 20,000 UNIT/ML VIAL IVPUSH ONE (14:15)
[2022-12-15 16:00] LABS: IRON SERUM 95 ug/dL (50-175); TOTAL IRON BINDING CAPACITY 289 ug/dL (250-450)
[2022-12-15] MEDS: ATORVASTATIN CA 20 MG TABLET (FP) PO SCH (21:52)
[2022-12-16 07:29] LABS: BASO % 0.4 % (0-2.0); EOS % 0.3 % (0-4.5); HEMATOCRIT 25.4 % (35.4-49); HEMOGLOBIN 8.8 GM/dL (11.7-16.9); LYMPH % 13.4 % (8-40); MCH 34.1 pg (25.7-33.7); MCHC 34.7 g/dl (32.0-35.9); MEAN CELL VOLUME 98.2 fl (80-96); MEAN PLT VOLUME 7.4 fl (7.5-11.1); MONO % 8.9 % (3.8-10.2); PLATELET COUNT 168 10^3/uL (134-434); RBC 2.58 M/mm3 (4.00-5.60); RDW 21.3 % (11.9-15.9); WHITE BLOOD COUNT 10.8 K/mm3 (4.0-10.0)
[2022-12-16 08:04] LABS: ALBUMIN 2.8 g/dl (3.4-5.0); CALCIUM 8.4 mg/dL (8.5-10.1)
[2022-12-16 08:09] LABS: BILIRUBIN,TOTAL 1.3 mg/dL (0.2-1); TOT PROT 6.3 g/dl (6.4-8.2)
[2022-12-16 08:12] LABS: BLOOD UREA NITROGEN 67.3 mg/dL (7-18)
[2022-12-16] MEDS: INSULIN (LEVEMIR) 100 UNITS/ML UNITS SQ SCH ×2 (10:00→21:53)
[2022-12-16 11:30] LABS: PHOSPHOROUS 3.3 mg/dL (2.5-4.9)
[2022-12-16] MEDS: ESCITALOPRAM OXALATE 10 MG TABLET PO SCH (14:33)
[2022-12-16] MEDS: TAMSULOSIN HCL 0.4 MG CAP PO SCH (14:33)
[2022-12-16] MEDS: PANTOPRAZOLE 20 MG TABLET PO SCH ×2 (14:33→21:53)
[2022-12-16] MEDS: FERROUS SO4 325 MG TABLET (FP) PO SCH (14:35)
[2022-12-16] MEDS: ATORVASTATIN CA 20 MG TABLET (FP) PO SCH (21:53)
[2022-12-17] MEDS: INSULIN SLIDING SCALE (NOVOLOG) 1 VIAL SQ SCH ×4 (06:33→21:45)
[2022-12-17 07:50] LABS: BASO % 0.3 % (0-2.0); EOS % 0.2 % (0-4.5); HEMATOCRIT 25.4 % (35.4-49); HEMOGLOBIN 8.6 GM/dL (11.7-16.9); MCH 33.5 pg (25.7-33.7); MCHC 33.8 g/dl (32.0-35.9); MEAN CELL VOLUME 99.2 fl (80-96); MEAN PLT VOLUME 7.1 fl (7.5-11.1); MONO % 8.3 % (3.8-10.2); NEUT % 80.2 % (42.8-82.8); PLATELET COUNT 186 10^3/uL (134-434); RBC 2.56 M/mm3 (4.00-5.60); WHITE BLOOD COUNT 12.2 K/mm3 (4.0-10.0)
[2022-12-17] MEDS: TAMSULOSIN HCL 0.4 MG CAP PO SCH (08:05)
[2022-12-17 08:39] LABS: ALBUMIN 2.9 g/dl (3.4-5.0)
[2022-12-17 08:40] LABS: CALCIUM 8.6 mg/dL (8.5-10.1)
[2022-12-17 08:47] LABS: BILIRUBIN,TOTAL 0.9 mg/dL (0.2-1)
[2022-12-17 08:48] LABS: TOT PROT 6.2 g/dl (6.4-8.2)
[2022-12-17 08:50] LABS: BLOOD UREA NITROGEN 53.6 mg/dL (7-18); CREATININE 3.5 mg/dL (0.55-1.3)
[2022-12-17] MEDS: PANTOPRAZOLE 20 MG TABLET PO SCH ×2 (09:20→21:45)
[2022-12-17] MEDS: ESCITALOPRAM OXALATE 10 MG TABLET PO SCH (09:20)
[2022-12-17] MEDS: INSULIN (LEVEMIR) 100 UNITS/ML UNITS SQ SCH ×2 (09:20→21:44)
[2022-12-17] MEDS ORDERED: POTASSIUM CHLORIDE ORAL LIQUID 20 MEQ/15 ML PO ONE (16:59)
[2022-12-17] MEDS ORDERED: ACETAMINOPHEN 1000 MG/100 ML BAG IVPB PRN (17:00)
[2022-12-17] MEDS: ATORVASTATIN CA 20 MG TABLET (FP) PO SCH (21:46)
[2022-12-18] MEDS: INSULIN SLIDING SCALE (NOVOLOG) 1 VIAL SQ SCH ×4 (06:27→22:16)
[2022-12-18 07:41] LABS: BASO % 0.4 % (0-2.0); EOS % 0.7 % (0-4.5); HEMATOCRIT 23.7 % (35.4-49); LYMPH % 12.7 % (8-40); MCH 33.5 pg (25.7-33.7); MCHC 33.6 g/dl (32.0-35.9); MEAN CELL VOLUME 99.4 fl (80-96); MEAN PLT VOLUME 7.2 fl (7.5-11.1); NEUT % 78.2 % (42.8-82.8); PLATELET COUNT 184 10^3/uL (134-434); RBC 2.38 M/mm3 (4.00-5.60); RDW 21.1 % (11.9-15.9); WHITE BLOOD COUNT 9.8 K/mm3 (4.0-10.0)
[2022-12-18 08:11] LABS: CALCIUM 8.5 mg/dL (8.5-10.1)
[2022-12-18 08:12] LABS: ALBUMIN 2.6 g/dl (3.4-5.0)
[2022-12-18 08:15] LABS: CREATININE 4.1 mg/dL (0.55-1.3)
[2022-12-18 08:16] LABS: BILIRUBIN,TOTAL 0.9 mg/dL (0.2-1); TOT PROT 5.9 g/dl (6.4-8.2)
[2022-12-18 08:27] LABS: BLOOD UREA NITROGEN 60.7 mg/dL (7-18)
[2022-12-18] MEDS: TAMSULOSIN HCL 0.4 MG CAP PO SCH (09:03)
[2022-12-18] MEDS: PANTOPRAZOLE 20 MG TABLET PO SCH ×2 (09:03→22:16)
[2022-12-18] MEDS: ESCITALOPRAM OXALATE 10 MG TABLET PO SCH (09:03)
[2022-12-18] MEDS: INSULIN (LEVEMIR) 100 UNITS/ML UNITS SQ SCH ×2 (09:04→22:16)
[2022-12-18 10:03] LABS: ANISOCYTOSIS 1+; MACROCYTOSIS 0
[2022-12-18] MEDS: ATORVASTATIN CA 20 MG TABLET (FP) PO SCH (22:16)
[2022-12-19] MEDS: INSULIN SLIDING SCALE (NOVOLOG) 1 VIAL SQ SCH ×4 (06:11→21:22)
[2022-12-19] MEDS ORDERED: SODIUM CHLORIDE 250 ML IV PRN (08:24)
[2022-12-19 08:41] LABS: ALBUMIN 2.8 g/dl (3.4-5.0); CALCIUM 8.4 mg/dL (8.5-10.1)
[2022-12-19 08:42] LABS: BLOOD UREA NITROGEN 62.1 mg/dL (7-18)
[2022-12-19 08:45] LABS: CREATININE 4.6 mg/dL (0.55-1.3)
[2022-12-19 08:46] LABS: BILIRUBIN,TOTAL 0.7 mg/dL (0.2-1); TOT PROT 6.3 g/dl (6.4-8.2)
[2022-12-19] MEDS: TAMSULOSIN HCL 0.4 MG CAP PO SCH (09:00)
[2022-12-19] MEDS: PANTOPRAZOLE 20 MG TABLET PO SCH ×2 (09:00→21:19)
[2022-12-19] MEDS: ESCITALOPRAM OXALATE 10 MG TABLET PO SCH (09:00)
[2022-12-19] MEDS: INSULIN (LEVEMIR) 100 UNITS/ML UNITS SQ SCH ×2 (09:00→21:22)
[2022-12-19] MEDS ORDERED: EPOETIN ALFA-EPBX 20,000 UNIT/ML VIAL SQ ONE (10:00)
[2022-12-19 10:43] LABS: HEMATOCRIT 25.1 % (35.4-49); HEMOGLOBIN 8.2 GM/dL (11.7-16.9); MCH 33.1 pg (25.7-33.7); MCHC 32.6 g/dl (32.0-35.9); MEAN CELL VOLUME 101.5 fl (80-96); MEAN PLT VOLUME 7.4 fl (7.5-11.1); PLATELET COUNT 215 10^3/uL (134-434); RBC 2.47 M/mm3 (4.00-5.60); RDW 20.5 % (11.9-15.9); WHITE BLOOD COUNT 9.9 K/mm3 (4.0-10.0)
[2022-12-19] MEDS ORDERED: POLYETHYLENE GLYCOL 3350 255 GM BTL PO ONE (19:15)
[2022-12-19] MEDS ORDERED: PIPERACILLIN/TAZOB 3.375 GM 3.375 GM in DEXTROSE 5%-WATER - 50 ML IVPB SCH (19:30)
[2022-12-19] MEDS: PIPERACILLIN/TAZOB 3.375 GM 3.375 GM in DEXTROSE 5%-WATER - 50 ML IVPB SCH (21:18)
[2022-12-19] MEDS: APIXABAN 2.5 MG TABLET PO SCH (21:19)
[2022-12-19] MEDS: ATORVASTATIN CA 20 MG TABLET (FP) PO SCH (21:19)
[2022-12-20] MEDS: PIPERACILLIN/TAZOB 3.375 GM 3.375 GM in DEXTROSE 5%-WATER - 50 ML IVPB SCH ×2 (03:30→10:18)
[2022-12-20] MEDS: INSULIN SLIDING SCALE (NOVOLOG) 1 VIAL SQ SCH ×4 (06:12→22:15)
[2022-12-20 08:04] LABS: BASO % 0.6 % (0-2.0); EOS % 0.8 % (0-4.5); HEMATOCRIT 24.2 % (35.4-49); HEMOGLOBIN 8.2 GM/dL (11.7-16.9); LYMPH % 14.1 % (8-40); MCH 34.5 pg (25.7-33.7); MEAN CELL VOLUME 101.4 fl (80-96); MEAN PLT VOLUME 7.1 fl (7.5-11.1); MONO % 8.1 % (3.8-10.2); NEUT % 76.4 % (42.8-82.8); PLATELET COUNT 187 10^3/uL (134-434); RBC 2.39 M/mm3 (4.00-5.60); RDW 20.9 % (11.9-15.9); WHITE BLOOD COUNT 7.9 K/mm3 (4.0-10.0)
[2022-12-20] MEDS: TAMSULOSIN HCL 0.4 MG CAP PO SCH (08:11)
[2022-12-20 08:24] LABS: CALCIUM 8.2 mg/dL (8.5-10.1)
[2022-12-20 08:25] LABS: ALBUMIN 2.7 g/dl (3.4-5.0); BLOOD UREA NITROGEN 44.8 mg/dL (7-18)
[2022-12-20 08:28] LABS: CREATININE 3.7 mg/dL (0.55-1.3)
[2022-12-20 08:29] LABS: TOT PROT 6.1 g/dl (6.4-8.2)
[2022-12-20] MEDS: ESCITALOPRAM OXALATE 10 MG TABLET PO SCH (10:19)
[2022-12-20] MEDS: APIXABAN 2.5 MG TABLET PO SCH ×2 (10:19→22:11)
[2022-12-20] MEDS: PANTOPRAZOLE 20 MG TABLET PO SCH ×2 (10:19→22:11)
[2022-12-20] MEDS: INSULIN (LEVEMIR) 100 UNITS/ML UNITS SQ SCH ×2 (10:28→22:14)
[2022-12-20] MEDS ORDERED: SODIUM CHLORIDE 250 ML IV PRN (11:37)
[2022-12-20] MEDS ORDERED: ACETAMINOPHEN 1000 MG/100 ML BAG IVPB PRN (16:44)
[2022-12-20] MEDS: PIPERACILLIN/TAZOB 2.25 GM 2.25 GM in DEXTROSE 5%-WATER - 50 ML IVPB SCH (17:17)
[2022-12-20] MEDS: ATORVASTATIN CA 20 MG TABLET (FP) PO SCH (22:11)
[2022-12-21] MEDS: PIPERACILLIN/TAZOB 2.25 GM 2.25 GM in DEXTROSE 5%-WATER - 50 ML IVPB SCH ×3 (01:11→17:09)
[2022-12-21] MEDS: INSULIN SLIDING SCALE (NOVOLOG) 1 VIAL SQ SCH ×4 (07:35→22:00)
[2022-12-21] MEDS ORDERED: EPOETIN ALFA-EPBX 20,000 UNIT/ML VIAL IVPUSH ONE (08:00)
[2022-12-21 08:33] LABS: CALCIUM 8.3 mg/dL (8.5-10.1)
[2022-12-21 08:34] LABS: BLOOD UREA NITROGEN 51.3 mg/dL (7-18)
[2022-12-21 08:37] LABS: CREATININE 4.7 mg/dL (0.55-1.3)
[2022-12-21 08:44] LABS: HEMOGLOBIN 8.1 GM/dL (11.7-16.9); MCH 35.1 pg (25.7-33.7); MCHC 33.9 g/dl (32.0-35.9); MEAN CELL VOLUME 103.6 fl (80-96); MEAN PLT VOLUME 8.2 fl (7.5-11.1); PLATELET COUNT 173 10^3/uL (134-434); RBC 2.32 M/mm3 (4.00-5.60); RDW 20.4 % (11.9-15.9); WHITE BLOOD COUNT 8.4 K/mm3 (4.0-10.0)
[2022-12-21] MEDS: TAMSULOSIN HCL 0.4 MG CAP PO SCH (11:31)
[2022-12-21] MEDS: INSULIN (LEVEMIR) 100 UNITS/ML UNITS SQ SCH ×2 (11:31→22:03)
[2022-12-21] MEDS: APIXABAN 2.5 MG TABLET PO SCH ×2 (11:31→21:53)
[2022-12-21] MEDS: ESCITALOPRAM OXALATE 10 MG TABLET PO SCH (11:32)
[2022-12-21] MEDS: PANTOPRAZOLE 20 MG TABLET PO SCH ×2 (11:32→21:53)
[2022-12-21 19:28] LABS: INR 2.16 (0.83-1.09); PROTHROMBIN TIME (PATIENT) 24.9 SEC (9.7-13.0)
[2022-12-21] MEDS: ATORVASTATIN CA 20 MG TABLET (FP) PO SCH (21:53)
[2022-12-21 23:42] VITALS: BMI 26.1
[2022-12-22] MEDS: PIPERACILLIN/TAZOB 2.25 GM 2.25 GM in DEXTROSE 5%-WATER - 50 ML IVPB SCH ×3 (02:10→18:18)
[2022-12-22] MEDS: INSULIN SLIDING SCALE (NOVOLOG) 1 VIAL SQ SCH ×4 (06:57→22:32)
[2022-12-22] MEDS: ESCITALOPRAM OXALATE 10 MG TABLET PO SCH (10:22)
[2022-12-22] MEDS: APIXABAN 2.5 MG TABLET PO SCH ×2 (10:22→22:32)
[2022-12-22] MEDS: PANTOPRAZOLE 20 MG TABLET PO SCH ×2 (10:22→22:31)
[2022-12-22] MEDS: TAMSULOSIN HCL 0.4 MG CAP PO SCH (10:22)
[2022-12-22] MEDS: INSULIN (LEVEMIR) 100 UNITS/ML UNITS SQ SCH ×2 (10:23→22:31)
[2022-12-22] MEDS ORDERED: SODIUM CHLORIDE 250 ML IV PRN (13:34)
[2022-12-22] MEDS: ATORVASTATIN CA 20 MG TABLET (FP) PO SCH (22:31)
[2022-12-23] MEDS: PIPERACILLIN/TAZOB 2.25 GM 2.25 GM in DEXTROSE 5%-WATER - 50 ML IVPB SCH ×3 (02:30→21:24)
[2022-12-23] MEDS: INSULIN SLIDING SCALE (NOVOLOG) 1 VIAL SQ SCH ×4 (06:20→21:28)
[2022-12-23 08:29] LABS: BASO % 0.7 % (0-2.0); EOS % 1.1 % (0-4.5); HEMATOCRIT 25.2 % (35.4-49); HEMOGLOBIN 8.2 GM/dL (11.7-16.9); LYMPH % 14.4 % (8-40); MCH 33.4 pg (25.7-33.7); MCHC 32.6 g/dl (32.0-35.9); MEAN CELL VOLUME 102.3 fl (80-96); MEAN PLT VOLUME 7.5 fl (7.5-11.1); MONO % 9.2 % (3.8-10.2); NEUT % 74.6 % (42.8-82.8); PLATELET COUNT 213 10^3/uL (134-434); RBC 2.46 M/mm3 (4.00-5.60); RDW 20.2 % (11.9-15.9); WHITE BLOOD COUNT 9.2 K/mm3 (4.0-10.0)
[2022-12-23] MEDS ORDERED: PIPERACILLIN/TAZOBACTAM 2.25 GM VIAL IVPB ONE (09:29)
[2022-12-23] MEDS: POLYETHYLENE GLYCOL (HEALTHYLAX) 3350 17 GM PACKET PO SCH (09:33)
[2022-12-23] MEDS: PANTOPRAZOLE 20 MG TABLET PO SCH ×2 (09:34→21:25)
[2022-12-23] MEDS: APIXABAN 2.5 MG TABLET PO SCH ×2 (09:34→21:25)
[2022-12-23] MEDS: TAMSULOSIN HCL 0.4 MG CAP PO SCH (09:34)
[2022-12-23] MEDS: ESCITALOPRAM OXALATE 10 MG TABLET PO SCH (09:34)
[2022-12-23] MEDS: INSULIN (LEVEMIR) 100 UNITS/ML UNITS SQ SCH ×2 (09:39→21:28)
[2022-12-23] MEDS ORDERED: INSULIN (NOVOLOG) ASPART 100 UNITS/ML 10ML VIAL ONE (11:48)
[2022-12-23] MEDS ORDERED: EPOETIN ALFA-EPBX 20,000 UNIT/ML VIAL SQ ONE (17:00)
[2022-12-23 17:10] LABS: HEMATOCRIT 22.8 % (35.4-49); HEMOGLOBIN 7.9 GM/dL (11.7-16.9); MCH 35.1 pg (25.7-33.7); MCHC 34.6 g/dl (32.0-35.9); MEAN CELL VOLUME 101.4 fl (80-96); PLATELET COUNT 200 10^3/uL (134-434); RBC 2.25 M/mm3 (4.00-5.60); RDW 20.4 % (11.9-15.9)
[2022-12-23 17:31] LABS: CALCIUM 7.9 mg/dL (8.5-10.1)
[2022-12-23 17:32] LABS: ALBUMIN 2.4 g/dl (3.4-5.0)
[2022-12-23 17:34] LABS: CREATININE 6.1 mg/dL (0.55-1.3)
[2022-12-23 17:36] LABS: BILIRUBIN,TOTAL 0.6 mg/dL (0.2-1)
[2022-12-23] MEDS: ATORVASTATIN CA 20 MG TABLET (FP) PO SCH (21:25)
[2022-12-24] MEDS: PIPERACILLIN/TAZOB 2.25 GM 2.25 GM in DEXTROSE 5%-WATER - 50 ML IVPB SCH ×3 (02:45→17:39)
[2022-12-24] MEDS: INSULIN SLIDING SCALE (NOVOLOG) 1 VIAL SQ SCH ×4 (06:25→21:11)
[2022-12-24] MEDS: TAMSULOSIN HCL 0.4 MG CAP PO SCH (08:03)
[2022-12-24 08:06] LABS: ALPHA 2 MACROGLOBULINS,QN 142 mg/dL (110-276); ALT(SGPT)P5P 21 IU/L (0-55); APOLIPOPROTEIN A-1. 106 mg/dL (101-178); CHOLESTEROL TOTAL 100 mg/dL (100-199); FIBROSIS SCORE- 0.47 (0.00-0.21); GLUCOSE SERUM 112 mg/dL (70-99); HEIGHT. 66 in (.); WEIGHT. 162 LBS (.)
[2022-12-24] MEDS: APIXABAN 2.5 MG TABLET PO SCH ×2 (09:04→21:05)
[2022-12-24] MEDS: ESCITALOPRAM OXALATE 10 MG TABLET PO SCH (09:04)
[2022-12-24] MEDS: PANTOPRAZOLE 20 MG TABLET PO SCH ×2 (09:04→21:06)
[2022-12-24] MEDS: POLYETHYLENE GLYCOL (HEALTHYLAX) 3350 17 GM PACKET PO SCH (09:04)
[2022-12-24] MEDS: INSULIN (LEVEMIR) 100 UNITS/ML UNITS SQ SCH ×2 (11:05→21:11)
[2022-12-24] MEDS: ATORVASTATIN CA 20 MG TABLET (FP) PO SCH (21:05)
[2022-12-24] MEDS ORDERED: INSULIN (NOVOLOG) ASPART 100 UNITS/ML 10ML VIAL ONE (21:09)
[2022-12-25] MEDS: PIPERACILLIN/TAZOB 2.25 GM 2.25 GM in DEXTROSE 5%-WATER - 50 ML IVPB SCH ×3 (02:40→18:19)
[2022-12-25] MEDS: INSULIN SLIDING SCALE (NOVOLOG) 1 VIAL SQ SCH ×4 (06:18→21:30)
[2022-12-25 08:12] LABS: BASO % 0.6 % (0-2.0); EOS % 0.8 % (0-4.5); HEMATOCRIT 22.3 % (35.4-49); HEMOGLOBIN 7.6 GM/dL (11.7-16.9); MCH 34.7 pg (25.7-33.7); MCHC 33.8 g/dl (32.0-35.9); MEAN CELL VOLUME 102.4 fl (80-96); MEAN PLT VOLUME 7.1 fl (7.5-11.1); MONO % 10.8 % (3.8-10.2); NEUT % 74.8 % (42.8-82.8); PLATELET COUNT 180 10^3/uL (134-434); RBC 2.18 M/mm3 (4.00-5.60); RDW 20.2 % (11.9-15.9); WHITE BLOOD COUNT 8.3 K/mm3 (4.0-10.0)
[2022-12-25] MEDS: TAMSULOSIN HCL 0.4 MG CAP PO SCH (08:12)
[2022-12-25 08:28] LABS: ALBUMIN 2.4 g/dl (3.4-5.0); CALCIUM 7.9 mg/dL (8.5-10.1)
[2022-12-25 08:29] LABS: BLOOD UREA NITROGEN 41.4 mg/dL (7-18)
[2022-12-25 08:33] LABS: BILIRUBIN,TOTAL 0.5 mg/dL (0.2-1)
[2022-12-25] MEDS: PANTOPRAZOLE 20 MG TABLET PO SCH ×2 (09:32→21:19)
[2022-12-25] MEDS: POLYETHYLENE GLYCOL (HEALTHYLAX) 3350 17 GM PACKET PO SCH (09:32)
[2022-12-25] MEDS: ESCITALOPRAM OXALATE 10 MG TABLET PO SCH (09:32)
[2022-12-25] MEDS: APIXABAN 2.5 MG TABLET PO SCH (09:32)
[2022-12-25] MEDS: INSULIN (LEVEMIR) 100 UNITS/ML UNITS SQ SCH ×2 (11:14→23:04)
[2022-12-25] MEDS: ATORVASTATIN CA 20 MG TABLET (FP) PO SCH (21:18)
[2022-12-25] MEDS ORDERED: APIXABAN 2.5 MG TABLET PO SCH (22:00)
[2022-12-26] MEDS ORDERED: PIPERACILLIN/TAZOBACTAM 2.25 GM VIAL IVPB ONE (01:15)
[2022-12-26] MEDS: PIPERACILLIN/TAZOB 2.25 GM 2.25 GM in DEXTROSE 5%-WATER - 50 ML IVPB SCH ×3 (01:31→18:34)
[2022-12-26] MEDS: INSULIN SLIDING SCALE (NOVOLOG) 1 VIAL SQ SCH ×4 (06:26→21:48)
[2022-12-26] MEDS: INSULIN (LEVEMIR) 100 UNITS/ML UNITS SQ SCH ×2 (06:27→21:49)
[2022-12-26] MEDS ORDERED: INSULIN (NOVOLOG) ASPART 100 UNITS/ML 10ML VIAL ONE ×2 (06:47→21:21)
[2022-12-26 08:15] LABS: BASO % 0.5 % (0-2.0); EOS % 1.1 % (0-4.5); HEMATOCRIT 20.3 % (35.4-49); LYMPH % 14.5 % (8-40); MCH 34.1 pg (25.7-33.7); MCHC 33.6 g/dl (32.0-35.9); MEAN CELL VOLUME 101.5 fl (80-96); MEAN PLT VOLUME 7.4 fl (7.5-11.1); MONO % 9.2 % (3.8-10.2); NEUT % 74.7 % (42.8-82.8); PLATELET COUNT 172 10^3/uL (134-434); WHITE BLOOD COUNT 7.8 K/mm3 (4.0-10.0)
[2022-12-26] MEDS: TAMSULOSIN HCL 0.4 MG CAP PO SCH (08:24)
[2022-12-26] MEDS ORDERED: SODIUM CHLORIDE 250 ML IV PRN (08:33)
[2022-12-26 08:41] LABS: CALCIUM 8.2 mg/dL (8.5-10.1)
[2022-12-26 08:42] LABS: ALBUMIN 2.3 g/dl (3.4-5.0); HEMOGLOBIN 6.8 GM/dL (11.7-16.9)
[2022-12-26 08:46] LABS: BILIRUBIN,TOTAL 0.6 mg/dL (0.2-1); TOT PROT 5.8 g/dl (6.4-8.2)
[2022-12-26 08:53] LABS: BLOOD UREA NITROGEN 55.6 mg/dL (7-18); CREATININE 7.1 mg/dL (0.55-1.3)
[2022-12-26] MEDS ORDERED: EPOETIN ALFA-EPBX 20,000 UNIT/ML VIAL SQ ONE (09:30)
[2022-12-26] MEDS: ESCITALOPRAM OXALATE 10 MG TABLET PO SCH (09:32)
[2022-12-26] MEDS: PANTOPRAZOLE 20 MG TABLET PO SCH ×2 (09:33→21:45)
[2022-12-26] MEDS ORDERED: POLYETHYLENE GLYCOL (HEALTHYLAX) 3350 17 GM PACKET PO SCH (10:00)
[2022-12-26] MEDS: ATORVASTATIN CA 20 MG TABLET (FP) PO SCH (21:46)
[2022-12-26] MEDS: POLYETHYLENE GLYCOL (HEALTHYLAX) 3350 17 GM PACKET PO SCH (21:48)
[2022-12-27] MEDS: PIPERACILLIN/TAZOB 2.25 GM 2.25 GM in DEXTROSE 5%-WATER - 50 ML IVPB SCH ×3 (01:47→19:01)
[2022-12-27] MEDS: INSULIN SLIDING SCALE (NOVOLOG) 1 VIAL SQ SCH ×4 (06:03→22:26)
[2022-12-27] MEDS: INSULIN (LEVEMIR) 100 UNITS/ML UNITS SQ SCH (06:17)
[2022-12-27] MEDS ORDERED: morphine SULFATE 4 MG/ML VIAL IM PRN (09:02)
[2022-12-27] MEDS ORDERED: ACETAMINOPHEN 1000 MG/100 ML BAG IVPB PRN (09:02)
[2022-12-27] MEDS ORDERED: DEXTROSE 50%-WATER 25 GM/50 ML DISP.SYRIN ONE (09:17)
[2022-12-27 09:25] LABS: HEMATOCRIT 27.2 % (35.4-49); HEMOGLOBIN 9.3 GM/dL (11.7-16.9); MCH 33.5 pg (25.7-33.7); MCHC 34.3 g/dl (32.0-35.9); MEAN CELL VOLUME 97.7 fl (80-96); MEAN PLT VOLUME 7.4 fl (7.5-11.1); PLATELET COUNT 182 10^3/uL (134-434); RBC 2.78 M/mm3 (4.00-5.60); RDW 19.5 % (11.9-15.9); WHITE BLOOD COUNT 10.1 K/mm3 (4.0-10.0)
[2022-12-27] MEDS ORDERED: BISACODYL 5 MG TABLET.DR (FP) PO ONE ×2 (09:36→12:45)
[2022-12-27] MEDS: DEXTROSE 5%-0.45% SALINE 1,000 ML IV SCH (09:42)
[2022-12-27 09:44] LABS: CHLORIDE 102 mmol/L (98-107); SODIUM 140 mmol/L (136-145)
[2022-12-27 09:53] LABS: CALCIUM 8.7 mg/dL (8.5-10.1)
[2022-12-27 09:55] LABS: ALBUMIN 2.4 g/dl (3.4-5.0); ANION GAP 8 MMOL/L (8-16); CO2 30 mmol/L (21-32)
[2022-12-27 09:56] LABS: BLOOD UREA NITROGEN 44.2 mg/dL (7-18)
[2022-12-27 09:59] LABS: CREATININE 5.5 mg/dL (0.55-1.3); GLUCOSE,RANDOM 47 mg/dL (74-106); SGOT/AST 24 U/L (15-37); SGPT/ALT 15 U/L (13-61)
[2022-12-27 10:00] LABS: BILIRUBIN,TOTAL 1.5 mg/dL (0.2-1)
[2022-12-27 10:02] LABS: ALK PHOS 53 U/L (45-117)
[2022-12-27] MEDS: POLYETHYLENE GLYCOL (HEALTHYLAX) 3350 17 GM PACKET PO SCH ×3 (10:56→22:23)
[2022-12-27] MEDS: ESCITALOPRAM OXALATE 10 MG TABLET PO SCH (10:56)
[2022-12-27] MEDS: PANTOPRAZOLE 20 MG TABLET PO SCH (10:57)
[2022-12-27] MEDS: TAMSULOSIN HCL 0.4 MG CAP PO SCH (10:58)
[2022-12-27] MEDS ORDERED: DEXTROSE 50%-WATER 25 GM/50 ML DISP.SYRIN IVPUSH ONE (11:30)
[2022-12-27] MEDS: MINERAL OIL ENEMA 133 ML ENEMA RC SCH (11:30)
[2022-12-27] MEDS ORDERED: SODIUM CHLORIDE 250 ML IV PRN (12:14)
[2022-12-27] MEDS ORDERED: POLYETHYLENE GLYCOL 3350 255 GM BTL PO ONE (15:15)
[2022-12-27] MEDS ORDERED: INSULIN (NOVOLOG) ASPART 100 UNITS/ML 10ML VIAL ONE (22:13)
[2022-12-27] MEDS: KCL 10 MEQ IVPB 10 MEQ/100 ML INFUS.BAG IVPB SCH ×3 (22:16→23:10)
[2022-12-27] MEDS: ATORVASTATIN CA 20 MG TABLET (FP) PO SCH (22:23)
[2022-12-27] MEDS: PANTOPRAZOLE 40 MG TABLET PO SCH (22:26)
[2022-12-28] MEDS: PIPERACILLIN/TAZOB 2.25 GM 2.25 GM in DEXTROSE 5%-WATER - 50 ML IVPB SCH ×2 (03:25→09:53)
[2022-12-28] MEDS: INSULIN SLIDING SCALE (NOVOLOG) 1 VIAL SQ SCH ×3 (06:42→17:56)
[2022-12-28 07:56] LABS: CALCIUM 8.2 mg/dL (8.5-10.1)
[2022-12-28 07:57] LABS: ALBUMIN 2.3 g/dl (3.4-5.0); BLOOD UREA NITROGEN 47.6 mg/dL (7-18)
[2022-12-28 08:00] LABS: CREATININE 5.8 mg/dL (0.55-1.3)
[2022-12-28 08:01] LABS: BILIRUBIN,TOTAL 1.3 mg/dL (0.2-1)
[2022-12-28 08:02] LABS: TOT PROT 5.8 g/dl (6.4-8.2)
[2022-12-28 08:44] LABS: BASO % 0.9 % (0-2.0); EOS % 1.5 % (0-4.5); HEMATOCRIT 27.8 % (35.4-49); HEMOGLOBIN 9.1 GM/dL (11.7-16.9); LYMPH % 13.5 % (8-40); MCH 31.5 pg (25.7-33.7); MCHC 32.7 g/dl (32.0-35.9); MEAN CELL VOLUME 96.2 fl (80-96); MEAN PLT VOLUME 7.3 fl (7.5-11.1); MONO % 10.2 % (3.8-10.2); NEUT % 73.9 % (42.8-82.8); PLATELET COUNT 165 10^3/uL (134-434); RBC 2.89 M/mm3 (4.00-5.60); RDW 19.6 % (11.9-15.9); WHITE BLOOD COUNT 8.1 K/mm3 (4.0-10.0)
[2022-12-28] MEDS: TAMSULOSIN HCL 0.4 MG CAP PO SCH (09:52)
[2022-12-28] MEDS: DEXTROSE 5%-0.45% SALINE 1,000 ML IV SCH (09:52)
[2022-12-28] MEDS: ESCITALOPRAM OXALATE 10 MG TABLET PO SCH (09:52)
[2022-12-28] MEDS: PANTOPRAZOLE 40 MG TABLET PO SCH ×2 (09:52→21:27)
[2022-12-28] MEDS: POLYETHYLENE GLYCOL (HEALTHYLAX) 3350 17 GM PACKET PO SCH ×2 (09:52→21:29)
[2022-12-28] MEDS ORDERED: EPOETIN ALFA-EPBX 20,000 UNIT/ML VIAL SQ ONE ×2 (12:14→14:00)
[2022-12-28] MEDS: MINERAL OIL ENEMA 133 ML ENEMA RC SCH (12:16)
[2022-12-28] MEDS ORDERED: SODIUM CHLORIDE 250 ML IV PRN (13:43)
[2022-12-28] MEDS ORDERED: POTASSIUM CHLORIDE ORAL LIQUID 20 MEQ/15 ML PO ONE (19:29)
[2022-12-28] MEDS: ATORVASTATIN CA 20 MG TABLET (FP) PO SCH (21:27)
[2022-12-28] MEDS: RIFAXIMIN 550 MG TABLET PO SCH (21:27)
[2022-12-29] MEDS: INSULIN SLIDING SCALE (NOVOLOG) 1 VIAL SQ SCH ×5 (00:15→23:02)
[2022-12-29 08:50] LABS: BASO % 0.7 % (0-2.0); EOS % 0.8 % (0-4.5); HEMATOCRIT 27.7 % (35.4-49); LYMPH % 13.1 % (8-40); MCH 31.5 pg (25.7-33.7); MCHC 32.7 g/dl (32.0-35.9); MEAN CELL VOLUME 96.4 fl (80-96); MEAN PLT VOLUME 7.5 fl (7.5-11.1); MONO % 10.2 % (3.8-10.2); NEUT % 75.2 % (42.8-82.8); PLATELET COUNT 180 10^3/uL (134-434); RBC 2.87 M/mm3 (4.00-5.60); RDW 19.3 % (11.9-15.9); WHITE BLOOD COUNT 8.7 K/mm3 (4.0-10.0)
[2022-12-29] MEDS ORDERED: SODIUM CHLORIDE 250 ML IV PRN (09:11)
[2022-12-29 09:17] LABS: CALCIUM 8.5 mg/dL (8.5-10.1)
[2022-12-29 09:20] LABS: ALBUMIN 2.3 g/dl (3.4-5.0); BLOOD UREA NITROGEN 38.9 mg/dL (7-18)
[2022-12-29 09:22] LABS: TOT PROT 5.9 g/dl (6.4-8.2)
[2022-12-29 09:23] LABS: BILIRUBIN,TOTAL 0.8 mg/dL (0.2-1)
[2022-12-29] MEDS: PANTOPRAZOLE 40 MG TABLET PO SCH ×2 (09:59→23:01)
[2022-12-29] MEDS: ESCITALOPRAM OXALATE 10 MG TABLET PO SCH (09:59)
[2022-12-29] MEDS: TAMSULOSIN HCL 0.4 MG CAP PO SCH (09:59)
[2022-12-29] MEDS: POLYETHYLENE GLYCOL (HEALTHYLAX) 3350 17 GM PACKET PO SCH ×2 (09:59→23:01)
[2022-12-29] MEDS: RIFAXIMIN 550 MG TABLET PO SCH ×2 (09:59→23:00)
[2022-12-29] MEDS: MINERAL OIL ENEMA 133 ML ENEMA RC SCH (14:13)
[2022-12-29] MEDS ORDERED: POTASSIUM CHLORIDE ORAL LIQUID 20 MEQ/15 ML PO ONE (17:32)
[2022-12-29] MEDS: ATORVASTATIN CA 20 MG TABLET (FP) PO SCH (23:01)
[2022-12-30] MEDS: INSULIN SLIDING SCALE (NOVOLOG) 1 VIAL SQ SCH ×4 (06:44→21:54)
[2022-12-30 08:26] LABS: BASO % 0.9 % (0-2.0); EOS % 0.9 % (0-4.5); HEMATOCRIT 26.5 % (35.4-49); HEMOGLOBIN 8.8 GM/dL (11.7-16.9); LYMPH % 14.8 % (8-40); MCH 32.9 pg (25.7-33.7); MCHC 33.2 g/dl (32.0-35.9); MEAN CELL VOLUME 99.1 fl (80-96); MEAN PLT VOLUME 7.8 fl (7.5-11.1); MONO % 10.2 % (3.8-10.2); NEUT % 73.2 % (42.8-82.8); PLATELET COUNT 186 10^3/uL (134-434); RBC 2.68 M/mm3 (4.00-5.60); WHITE BLOOD COUNT 8.9 K/mm3 (4.0-10.0)
[2022-12-30] MEDS ORDERED: EPOETIN ALFA-EPBX 20,000 UNIT/ML VIAL SQ ONE (10:00)
[2022-12-30] MEDS: POLYETHYLENE GLYCOL (HEALTHYLAX) 3350 17 GM PACKET PO SCH ×3 (12:58→21:55)
[2022-12-30] MEDS: RIFAXIMIN 550 MG TABLET PO SCH ×2 (12:58→21:57)
[2022-12-30] MEDS: ESCITALOPRAM OXALATE 10 MG TABLET PO SCH (12:58)
[2022-12-30] MEDS: TAMSULOSIN HCL 0.4 MG CAP PO SCH (13:00)
[2022-12-30] MEDS: PANTOPRAZOLE 40 MG TABLET PO SCH ×2 (13:02→21:57)
[2022-12-30] MEDS: MINERAL OIL ENEMA 133 ML ENEMA RC SCH (13:02)
[2022-12-30] MEDS ORDERED: POTASSIUM CHLORIDE ORAL LIQUID 20 MEQ/15 ML PO ONE (14:47)
[2022-12-30 14:49] LABS: CALCIUM 8.2 mg/dL (8.5-10.1)
[2022-12-30 14:50] LABS: ALBUMIN 2.4 g/dl (3.4-5.0)
[2022-12-30 14:53] LABS: CREATININE 6.1 mg/dL (0.55-1.3)
[2022-12-30 14:54] LABS: BILIRUBIN,TOTAL 0.5 mg/dL (0.2-1)
[2022-12-30] MEDS: ATORVASTATIN CA 20 MG TABLET (FP) PO SCH (21:57)
[2022-12-31] MEDS: INSULIN SLIDING SCALE (NOVOLOG) 1 VIAL SQ SCH ×4 (06:11→21:16)
[2022-12-31 08:27] LABS: BASO % 0.4 % (0-2.0); EOS % 0.7 % (0-4.5); HEMATOCRIT 27.7 % (35.4-49); HEMOGLOBIN 8.9 GM/dL (11.7-16.9); LYMPH % 13.4 % (8-40); MCH 31.9 pg (25.7-33.7); MCHC 32.3 g/dl (32.0-35.9); MEAN PLT VOLUME 7.9 fl (7.5-11.1); MONO % 10.2 % (3.8-10.2); NEUT % 75.3 % (42.8-82.8); PLATELET COUNT 169 10^3/uL (134-434); RDW 19.6 % (11.9-15.9); WHITE BLOOD COUNT 9.8 K/mm3 (4.0-10.0)
[2022-12-31 08:53] LABS: ALBUMIN 2.5 g/dl (3.4-5.0); BLOOD UREA NITROGEN 31.6 mg/dL (7-18)
[2022-12-31 08:56] LABS: CREATININE 5.3 mg/dL (0.55-1.3)
[2022-12-31 08:58] LABS: BILIRUBIN,TOTAL 0.8 mg/dL (0.2-1); TOT PROT 6.2 g/dl (6.4-8.2)
[2022-12-31] MEDS ORDERED: POTASSIUM CHLORIDE ORAL LIQUID 20 MEQ/15 ML PO ONE (09:37)
[2022-12-31] MEDS: RIFAXIMIN 550 MG TABLET PO SCH ×2 (10:12→21:07)
[2022-12-31] MEDS: TAMSULOSIN HCL 0.4 MG CAP PO SCH (10:12)
[2022-12-31] MEDS: ESCITALOPRAM OXALATE 10 MG TABLET PO SCH (10:12)
[2022-12-31] MEDS: POLYETHYLENE GLYCOL (HEALTHYLAX) 3350 17 GM PACKET PO SCH ×2 (10:13→21:06)
[2022-12-31] MEDS: PANTOPRAZOLE 40 MG TABLET PO SCH ×2 (10:13→21:07)
[2022-12-31] MEDS: metoPROLOL SUCCINATE 25 MG TAB.SR.24H (FP) PO SCH (12:47)
[2022-12-31] MEDS: MINERAL OIL ENEMA 133 ML ENEMA RC SCH (12:47)
[2022-12-31] MEDS: VALSARTAN 40 MG TABLET PO SCH (12:47)
[2022-12-31] MEDS: ATORVASTATIN CA 20 MG TABLET (FP) PO SCH (21:07)
[2023-01-01] MEDS: INSULIN SLIDING SCALE (NOVOLOG) 1 VIAL SQ SCH ×4 (06:17→23:05)
[2023-01-01] MEDS ORDERED: POTASSIUM CHLORIDE ORAL LIQUID 20 MEQ/15 ML PO ONE (11:00)
[2023-01-01] MEDS: TAMSULOSIN HCL 0.4 MG CAP PO SCH (12:00)
[2023-01-01] MEDS: ESCITALOPRAM OXALATE 10 MG TABLET PO SCH (12:01)
[2023-01-01] MEDS: PANTOPRAZOLE 40 MG TABLET PO SCH ×2 (12:01→23:00)
[2023-01-01] MEDS: metoPROLOL SUCCINATE 25 MG TAB.SR.24H (FP) PO SCH (12:01)
[2023-01-01] MEDS: VALSARTAN 40 MG TABLET PO SCH (12:01)
[2023-01-01] MEDS: RIFAXIMIN 550 MG TABLET PO SCH ×2 (12:01→23:00)
[2023-01-01] MEDS: POLYETHYLENE GLYCOL (HEALTHYLAX) 3350 17 GM PACKET PO SCH ×3 (12:33→23:00)
[2023-01-01] MEDS: SIMETHICONE 80 MG TAB.CHEW (FP) PO SCH ×3 (14:46→23:00)
[2023-01-01] MEDS ORDERED: INSULIN (NOVOLOG) ASPART 100 UNITS/ML 10ML VIAL ONE ×2 (19:31→22:51)
[2023-01-01] MEDS: ATORVASTATIN CA 10 MG TABLET (FP) PO SCH (23:00)
[2023-01-01] MEDS: ATORVASTATIN CA 20 MG TABLET (FP) PO SCH (23:07)
[2023-01-02] MEDS: POLYETHYLENE GLYCOL (HEALTHYLAX) 3350 17 GM PACKET PO SCH ×3 (06:53→23:11)
[2023-01-02] MEDS: INSULIN SLIDING SCALE (NOVOLOG) 1 VIAL SQ SCH ×4 (07:58→23:21)
[2023-01-02 09:10] LABS: HEMATOCRIT 28.8 % (35.4-49); HEMOGLOBIN 9.2 GM/dL (11.7-16.9); MCH 31.9 pg (25.7-33.7); MCHC 32.1 g/dl (32.0-35.9); MEAN CELL VOLUME 99.5 fl (80-96); MEAN PLT VOLUME 7.5 fl (7.5-11.1); PLATELET COUNT 185 10^3/uL (134-434); RBC 2.89 M/mm3 (4.00-5.60); RDW 21.1 % (11.9-15.9); WHITE BLOOD COUNT 7.4 K/mm3 (4.0-10.0)
[2023-01-02] MEDS ORDERED: SODIUM CHLORIDE 250 ML IV PRN (09:44)
[2023-01-02 09:58] LABS: CALCIUM 8.3 mg/dL (8.5-10.1)
[2023-01-02 09:59] LABS: BLOOD UREA NITROGEN 45.2 mg/dL (7-18)
[2023-01-02 10:01] LABS: CREATININE 7.1 mg/dL (0.55-1.3)
[2023-01-02 10:09] LABS: ALBUMIN 2.4 g/dl (3.4-5.0); BLOOD UREA NITROGEN 47.7 mg/dL (7-18); CALCIUM 8.4 mg/dL (8.5-10.1)
[2023-01-02 10:13] LABS: BILIRUBIN,TOTAL 0.7 mg/dL (0.2-1); CREATININE 7.1 mg/dL (0.55-1.3); TOT PROT 6.3 g/dl (6.4-8.2)
[2023-01-02] MEDS ORDERED: EPOETIN ALFA-EPBX 20,000 UNIT/ML VIAL SQ ONE (10:30)
[2023-01-02] MEDS: TAMSULOSIN HCL 0.4 MG CAP PO SCH (12:19)
[2023-01-02] MEDS: VALSARTAN 40 MG TABLET PO SCH (12:26)
[2023-01-02] MEDS: PANTOPRAZOLE 40 MG TABLET PO SCH ×2 (12:27→23:13)
[2023-01-02] MEDS: BISACODYL 5 MG TABLET.DR (FP) PO SCH ×2 (12:27→23:11)
[2023-01-02] MEDS: SIMETHICONE 80 MG TAB.CHEW (FP) PO SCH ×4 (12:27→23:12)
[2023-01-02] MEDS: RIFAXIMIN 550 MG TABLET PO SCH ×2 (12:27→23:12)
[2023-01-02] MEDS: metoPROLOL SUCCINATE 25 MG TAB.SR.24H (FP) PO SCH (14:13)
[2023-01-02] MEDS: ESCITALOPRAM OXALATE 10 MG TABLET PO SCH (14:13)
[2023-01-02] MEDS ORDERED: ATORVASTATIN CA 10 MG TABLET (FP) PO SCH (22:00)
[2023-01-02] MEDS: ATORVASTATIN CA 10 MG TABLET (FP) PO SCH (23:12)
[2023-01-03] MEDS: POLYETHYLENE GLYCOL (HEALTHYLAX) 3350 17 GM PACKET PO SCH ×2 (06:13→15:53)
[2023-01-03] MEDS: INSULIN SLIDING SCALE (NOVOLOG) 1 VIAL SQ SCH ×3 (07:12→17:35)
[2023-01-03] MEDS: RIFAXIMIN 550 MG TABLET PO SCH (09:13)
[2023-01-03] MEDS: VALSARTAN 40 MG TABLET PO SCH (09:13)
[2023-01-03] MEDS: SIMETHICONE 80 MG TAB.CHEW (FP) PO SCH ×2 (09:13→15:53)
[2023-01-03] MEDS: ESCITALOPRAM OXALATE 10 MG TABLET PO SCH (09:13)
[2023-01-03] MEDS: TAMSULOSIN HCL 0.4 MG CAP PO SCH (09:13)
[2023-01-03] MEDS: metoPROLOL SUCCINATE 25 MG TAB.SR.24H (FP) PO SCH (09:14)
[2023-01-03] MEDS: PANTOPRAZOLE 40 MG TABLET PO SCH (09:14)
[2023-01-03] MEDS: BISACODYL 5 MG TABLET.DR (FP) PO SCH (09:14)
[2023-01-03 14:35] VITALS: BP 117/59; PULSE 69; RESP 18; TEMP 98
== END 2023-01-03 17:45 | DRG 811 ==
LOC: JER 12:48 → JERBED 13:47 → J4W 23:19 → J8W 12-25 19:01
PROVIDERS: ADMIT Internal Medicine; ATTEND Internal Medicine
PROC: 30233N1 Transfusion of Nonautologous Red Blood Cells into Peripheral Vein, Percutaneous Approach (ICD-10-PCS; 2022-12-14)
PROC: 5A1D70Z Performance of Urinary Filtration, Intermittent, Less than 6 Hours Per Day (ICD-10-PCS; 2022-12-15)
PROC: 5A1D70Z Performance of Urinary Filtration, Intermittent, Less than 6 Hours Per Day (ICD-10-PCS; 2022-12-19)
PROC: 5A1D70Z Performance of Urinary Filtration, Intermittent, Less than 6 Hours Per Day (ICD-10-PCS; 2022-12-21)
PROC: 5A1D70Z Performance of Urinary Filtration, Intermittent, Less than 6 Hours Per Day (ICD-10-PCS; 2022-12-23)
PROC: 5A1D70Z Performance of Urinary Filtration, Intermittent, Less than 6 Hours Per Day (ICD-10-PCS; 2022-12-26)
PROC: 0DJD8ZZ Inspection of Lower Intestinal Tract, Via Natural or Artificial Opening Endoscopic (ICD-10-PCS; principal; 2022-12-27 14:00)
PROC: 5A1D70Z Performance of Urinary Filtration, Intermittent, Less than 6 Hours Per Day (ICD-10-PCS; 2022-12-28)
PROC: 5A1D70Z Performance of Urinary Filtration, Intermittent, Less than 6 Hours Per Day (ICD-10-PCS; 2023-01-02)
DX: D64.9 Anemia, unspecified (principal); N18.6 End stage renal disease; I13.2 Hypertensive heart and chronic kidney disease with heart failure and with stage 5 chronic kidney disease, or end stage renal disease; I50.42 Chronic combined systolic (congestive) and diastolic (congestive) heart failure; I24.8 Other forms of acute ischemic heart disease; I48.92 Unspecified atrial flutter; K57.92 Diverticulitis of intestine, part unspecified, without perforation or abscess without bleeding; K56.609 Unspecified intestinal obstruction, unspecified as to partial versus complete obstruction; I48.0 Paroxysmal atrial fibrillation; E11.22 Type 2 diabetes mellitus with diabetic chronic kidney disease; E78.5 Hyperlipidemia, unspecified; N40.0 Benign prostatic hyperplasia without lower urinary tract symptoms; M10.9 Gout, unspecified; K21.9 Gastro-esophageal reflux disease without esophagitis; R53.1 Weakness; I08.1 Rheumatic disorders of both mitral and tricuspid valves; I27.20 Pulmonary hypertension, unspecified; R29.810 Facial weakness; G20 Parkinson's disease; E05.90 Thyrotoxicosis, unspecified without thyrotoxic crisis or storm; R10.9 Unspecified abdominal pain; D63.1 Anemia in chronic kidney disease; I25.119 Atherosclerotic heart disease of native coronary artery with unspecified angina pectoris; E87.6 Hypokalemia; Z99.2 Dependence on renal dialysis; Z95.0 Presence of cardiac pacemaker
CPT/HCPCS: 0241U-QW; 36415; 36430; 70450-TC; 71045-TC-FY; 74018-TC-FY; 74019-TC-FY; 74177-TC; 74240-TC-FY; 80048; 80053; 82272; 82728; 82962; 83540; 83550; 83735; 84100; 84443; 84484; 85025; 85027; 85610; 85730; 86140; 86705; 86709; 86803; 86850; 86900; 86901; 86922; 87340; 87517; 87522; 93005; 93010; 93971; 97116-GP; 97162-GP; 99285-25; C9803-CS; P9058; Q9967; U0003; U0005

== ENCOUNTER 2023-02-12 13:55 | Observation (INO) | payer OTHER ==
[2023-02-12 14:32] VITALS: RESP 18; BMI 29.0
[2023-02-12 16:37] LABS: BASO % 0.6 % (0-2.0); HEMATOCRIT 21.1 % (35.4-49); LYMPH % 23.5 % (8-40); MCH 33.8 pg (25.7-33.7); MCHC 32.8 g/dl (32.0-35.9); MEAN PLT VOLUME 8.6 fl (7.5-11.1); MONO % 7.2 % (3.8-10.2); NEUT % 67.7 % (42.8-82.8); PLATELET COUNT 157 10^3/uL (134-434); RBC 2.05 M/mm3 (4.00-5.60); RDW 22.9 % (11.9-15.9); WHITE BLOOD COUNT 7.2 K/mm3 (4.0-10.0)
[2023-02-12 16:46] LABS: HEMOGLOBIN 6.9 GM/dL (11.7-16.9)
[2023-02-12 17:01] LABS: BLOOD UREA NITROGEN 37.4 mg/dL (7-18); CALCIUM 8.4 mg/dL (8.5-10.1)
[2023-02-12 17:02] LABS: ALBUMIN 2.6 g/dl (3.4-5.0)
[2023-02-12 17:03] LABS: CREATININE 6.1 mg/dL (0.55-1.3)
[2023-02-12 17:05] LABS: BILIRUBIN,TOTAL 0.5 mg/dL (0.2-1); TOT PROT 7.2 g/dl (6.4-8.2)
[2023-02-12 17:40] LABS: ANISOCYTOSIS 2+; MACROCYTOSIS 2+; OVALOCYTE 1+
[2023-02-12] MEDS ORDERED: SODIUM CHLORIDE 250 ML IV PRN (18:04)
[2023-02-12 19:04] LABS: ACTIVATED PTT 35.1 SECONDS (25.2-36.5); INR 1.87 (0.83-1.09); PROTHROMBIN TIME (PATIENT) 21.6 SEC (9.7-13.0)
[2023-02-12] MEDS: INSULIN SLIDING SCALE (NOVOLOG) 1 VIAL SQ SCH (23:11)
[2023-02-13] MEDS: INSULIN SLIDING SCALE (NOVOLOG) 1 VIAL SQ SCH ×4 (06:21→22:44)
[2023-02-13] MEDS ORDERED: EPOETIN ALFA-EPBX 20,000 UNIT/ML VIAL IVPUSH ONE (10:30)
[2023-02-13 10:40] LABS: BASO % 0.5 % (0-2.0); EOS % 0.8 % (0-4.5); HEMATOCRIT 22.9 % (35.4-49); HEMOGLOBIN 7.9 GM/dL (11.7-16.9); LYMPH % 20.5 % (8-40); MCH 33.5 pg (25.7-33.7); MCHC 34.6 g/dl (32.0-35.9); MEAN CELL VOLUME 96.8 fl (80-96); MEAN PLT VOLUME 7.4 fl (7.5-11.1); MONO % 7.9 % (3.8-10.2); NEUT % 70.3 % (42.8-82.8); PLATELET COUNT 148 10^3/uL (134-434); RBC 2.36 M/mm3 (4.00-5.60); RDW 23.6 % (11.9-15.9); WHITE BLOOD COUNT 6.7 K/mm3 (4.0-10.0)
[2023-02-13] MEDS ORDERED: ACETAMINOPHEN 325 MG TABLET (FP) PO PRN (11:49)
[2023-02-13 12:09] LABS: CALCIUM 8.2 mg/dL (8.5-10.1)
[2023-02-13 12:10] LABS: BLOOD UREA NITROGEN 35.6 mg/dL (7-18)
[2023-02-13 12:13] LABS: CREATININE 5.6 mg/dL (0.55-1.3)
[2023-02-13 17:00] LABS: HEMATOCRIT 26.8 % (35.4-49); HEMOGLOBIN 9.2 GM/dL (11.7-16.9); MCH 32.5 pg (25.7-33.7); MCHC 34.2 g/dl (32.0-35.9); MEAN CELL VOLUME 94.9 fl (80-96); MEAN PLT VOLUME 7.5 fl (7.5-11.1); PLATELET COUNT 126 10^3/uL (134-434); RBC 2.83 M/mm3 (4.00-5.60); RDW 22.1 % (11.9-15.9); WHITE BLOOD COUNT 7.1 K/mm3 (4.0-10.0)
[2023-02-13] MEDS ORDERED: INSULIN (NOVOLOG) ASPART 100 UNITS/ML 10ML VIAL ONE (21:27)
[2023-02-13] MEDS ORDERED: ATORVASTATIN CA 20 MG TABLET (FP) PO SCH (22:00)
[2023-02-14] MEDS: INSULIN SLIDING SCALE (NOVOLOG) 1 VIAL SQ SCH ×2 (06:21→11:50)
[2023-02-14] MEDS ORDERED: PANTOPRAZOLE 40 MG TABLET PO SCH (10:00)
[2023-02-14] MEDS ORDERED: metoPROLOL SUCCINATE 25 MG TAB.SR.24H (FP) PO SCH (10:00)
[2023-02-14] MEDS ORDERED: ESCITALOPRAM OXALATE 10 MG TABLET PO SCH (10:00)
[2023-02-14 10:40] LABS: HEMATOCRIT 24.7 % (35.4-49); HEMOGLOBIN 8.6 GM/dL (11.7-16.9); MCH 33.4 pg (25.7-33.7); MCHC 34.8 g/dl (32.0-35.9); MEAN PLT VOLUME 7.6 fl (7.5-11.1); PLATELET COUNT 136 10^3/uL (134-434); RBC 2.57 M/mm3 (4.00-5.60); RDW 22.4 % (11.9-15.9); WHITE BLOOD COUNT 6.8 K/mm3 (4.0-10.0)
[2023-02-14 14:30] VITALS: BP 124/58; PULSE 74; TEMP 98.2
== END 2023-02-14 15:59 ==
LOC: JER 13:55 → JERBED 19:38 → J6S 02-13 00:07
PROVIDERS: ADMIT Internal Medicine; ATTEND Family Medicine
PROC: 30233N1 Transfusion of Nonautologous Red Blood Cells into Peripheral Vein, Percutaneous Approach (ICD-10-PCS; principal; 2023-02-12)
PROC: 3E0337Z Introduction of Electrolytic and Water Balance Substance into Peripheral Vein, Percutaneous Approach (ICD-10-PCS; 2023-02-12)
PROC: 3E033GC Introduction of Other Therapeutic Substance into Peripheral Vein, Percutaneous Approach (ICD-10-PCS; 2023-02-12)
DX: D63.1 Anemia in chronic kidney disease (principal); E11.22 Type 2 diabetes mellitus with diabetic chronic kidney disease; I13.2 Hypertensive heart and chronic kidney disease with heart failure and with stage 5 chronic kidney disease, or end stage renal disease; I50.9 Heart failure, unspecified; N18.6 End stage renal disease; Z99.2 Dependence on renal dialysis; Z79.4 Long term (current) use of insulin; F03.90 Unspecified dementia, unspecified severity, without behavioral disturbance, psychotic disturbance, mood disturbance, and anxiety; E78.5 Hyperlipidemia, unspecified; I25.10 Atherosclerotic heart disease of native coronary artery without angina pectoris; R53.1 Weakness; K57.90 Diverticulosis of intestine, part unspecified, without perforation or abscess without bleeding; Z86.73 Personal history of transient ischemic attack (TIA), and cerebral infarction without residual deficits; Z86.16 Personal history of COVID-19; Z95.0 Presence of cardiac pacemaker; Z95.5 Presence of coronary angioplasty implant and graft
CPT/HCPCS: 0241U-QW; 36415; 36430; 71045-TC-FY; 80048; 80053; 82962; 83735; 85025; 85027; 85610; 85730; 86803; 86850; 86900; 86901; 86922; 87340; 93005; 93010; 96374; 99285-25; G0378; P9058

== ENCOUNTER 2023-02-25 11:44 | Day surgery (SDC) | payer OTHER ==
[2023-02-25 11:54] VITALS: BMI 28.2
[2023-02-25 12:37] LABS: BASO % 0.4 % (0-2.0); EOS % 0.8 % (0-4.5); HEMATOCRIT 27.2 % (35.4-49); HEMOGLOBIN 8.8 GM/dL (11.7-16.9); LYMPH % 17.1 % (8-40); MCH 32.9 pg (25.7-33.7); MCHC 32.3 g/dl (32.0-35.9); MEAN CELL VOLUME 101.9 fl (80-96); MEAN PLT VOLUME 6.9 fl (7.5-11.1); MONO % 6.6 % (3.8-10.2); NEUT % 75.1 % (42.8-82.8); PLATELET COUNT 142 10^3/uL (134-434); RBC 2.67 M/mm3 (4.00-5.60); RDW 23.4 % (11.9-15.9); WHITE BLOOD COUNT 7.1 K/mm3 (4.0-10.0)
[2023-02-25 12:43] LABS: INR 1.69 (0.83-1.09); PROTHROMBIN TIME (PATIENT) 19.5 SEC (9.7-13.0)
[2023-02-25 12:46] LABS: ACTIVATED PTT 33.3 SECONDS (25.2-36.5)
[2023-02-25 12:55] LABS: POTASSIUM 3.9 mmol/L (3.5-5.1)
[2023-02-25 12:57] LABS: CALCIUM 8.6 mg/dL (8.5-10.1)
[2023-02-25 12:58] LABS: ALBUMIN 2.5 g/dl (3.4-5.0); BLOOD UREA NITROGEN 55.1 mg/dL (7-18); MAGNESIUM 2.3 mg/dL (1.8-2.4)
[2023-02-25 13:01] LABS: CREATININE 7.1 mg/dL (0.55-1.3); PHOSPHOROUS 4.1 mg/dL (2.5-4.9)
[2023-02-25 13:02] LABS: BILIRUBIN,TOTAL 0.5 mg/dL (0.2-1); TOT PROT 6.8 g/dl (6.4-8.2)
[2023-02-25 14:12] LABS: ANISOCYTOSIS 3+; MACROCYTOSIS 1+
[2023-02-25] MEDS ORDERED: ACETAMINOPHEN 325 MG TABLET (FP) PO PRN (14:38)
[2023-02-25] MEDS ORDERED: ATORVASTATIN CA 20 MG TABLET (FP) PO SCH (22:00)
[2023-02-25] MEDS: POLYETHYLENE GLYCOL (HEALTHYLAX) 3350 17 GM PACKET PO SCH (22:07)
[2023-02-25] MEDS: RIFAXIMIN 550 MG TABLET PO SCH (22:08)
[2023-02-25] MEDS: PANTOPRAZOLE 40 MG TABLET PO SCH (22:09)
[2023-02-25] MEDS: BISACODYL 5 MG TABLET.DR (FP) PO SCH (22:10)
[2023-02-25] MEDS: HEPARIN NA (PORCINE) 5,000 UNITS/ML 1ML VIAL SQ SCH (22:29)
[2023-02-26] MEDS ORDERED: LIDOCAINE HCL 1%, 10 MG/ML (20ML VIAL) INF ONE
[2023-02-26] MEDS: POLYETHYLENE GLYCOL (HEALTHYLAX) 3350 17 GM PACKET PO SCH ×3 (05:35→22:09)
[2023-02-26] MEDS ORDERED: TAMSULOSIN HCL 0.4 MG CAP PO SCH (08:30)
[2023-02-26 09:41] LABS: BASO % 0.5 % (0-2.0); EOS % 0.8 % (0-4.5); HEMATOCRIT 25.7 % (35.4-49); HEMOGLOBIN 8.5 GM/dL (11.7-16.9); LYMPH % 19.7 % (8-40); MCH 33.4 pg (25.7-33.7); MEAN CELL VOLUME 101.2 fl (80-96); MEAN PLT VOLUME 7.2 fl (7.5-11.1); MONO % 6.7 % (3.8-10.2); NEUT % 72.3 % (42.8-82.8); PLATELET COUNT 141 10^3/uL (134-434); RBC 2.54 M/mm3 (4.00-5.60); RDW 23.6 % (11.9-15.9); WHITE BLOOD COUNT 7.2 K/mm3 (4.0-10.0)
[2023-02-26] MEDS ORDERED: metoPROLOL SUCCINATE 25 MG TAB.SR.24H (FP) PO SCH (10:00)
[2023-02-26] MEDS ORDERED: ESCITALOPRAM OXALATE 10 MG TABLET PO SCH (10:00)
[2023-02-26] MEDS ORDERED: VALSARTAN 40 MG TABLET PO SCH (10:00)
[2023-02-26] MEDS: BISACODYL 5 MG TABLET.DR (FP) PO SCH ×2 (10:12→22:11)
[2023-02-26] MEDS: HEPARIN NA (PORCINE) 5,000 UNITS/ML 1ML VIAL SQ SCH ×2 (10:12→22:13)
[2023-02-26] MEDS: PANTOPRAZOLE 40 MG TABLET PO SCH ×2 (10:12→22:12)
[2023-02-26] MEDS: RIFAXIMIN 550 MG TABLET PO SCH ×2 (10:18→22:12)
[2023-02-26 11:17] LABS: CHLORIDE 111 mmol/L (98-107); POTASSIUM 3.9 mmol/L (3.5-5.1); SODIUM 142 mmol/L (136-145)
[2023-02-26 11:21] LABS: CALCIUM 8.6 mg/dL (8.5-10.1)
[2023-02-26 11:22] LABS: ALBUMIN 2.4 g/dl (3.4-5.0); ANION GAP 7 MMOL/L (8-16); CO2 24 mmol/L (21-32); GLUCOSE,RANDOM 87 mg/dL (74-106)
[2023-02-26 11:25] LABS: BLOOD UREA NITROGEN 61.8 mg/dL (7-18); SGOT/AST 20 U/L (15-37)
[2023-02-26 11:27] LABS: BILIRUBIN,TOTAL 0.6 mg/dL (0.2-1); TOT PROT 6.4 g/dl (6.4-8.2)
[2023-02-26 11:28] LABS: ALK PHOS 81 U/L (45-117)
[2023-02-26 11:32] LABS: CREATININE 7.5 mg/dL (0.55-1.3); SGPT/ALT 17 U/L (13-61)
[2023-02-26] MEDS ORDERED: HEPARIN NA (PORCINE) 5,000 UNITS/ML 1ML VIAL ONE (13:22)
[2023-02-26] MEDS ORDERED: LIDOCAINE HCL 1%, 10 MG/ML (10ML VIAL) MDV ONE (13:22)
[2023-02-26] MEDS ORDERED: oxyCODONE HCL 5 MG TABLET PO PRN ×2 (13:57→15:50)
[2023-02-26] MEDS ORDERED: MIDAZOLAM HCL 2 MG/2 ML SINGLE DOSE VIAL ONE (14:24)
[2023-02-26] MEDS ORDERED: ceFAZolin SODIUM 1 GM VIAL IVPB ONE (14:27)
[2023-02-26] MEDS ORDERED: HEPARIN NA (PORCINE) 5,000 UNITS/ML 1ML VIAL IVPUSH ONE (14:35)
[2023-02-26] MEDS ORDERED: HEPARIN NA (PORCINE) 5,000 UNITS/ML 1ML VIAL TP ONE (14:46)
[2023-02-26] MEDS ORDERED: ACETAMINOPHEN 325 MG TABLET (FP) PO PRN (15:50)
[2023-02-26] MEDS ORDERED: ATORVASTATIN CA 20 MG TABLET (FP) PO SCH (22:00)
[2023-02-27] MEDS: POLYETHYLENE GLYCOL (HEALTHYLAX) 3350 17 GM PACKET PO SCH ×2 (06:31→15:38)
[2023-02-27] MEDS ORDERED: SODIUM CHLORIDE 250 ML IV PRN (09:23)
[2023-02-27] MEDS: HEPARIN NA (PORCINE) 5,000 UNITS/ML 1ML VIAL SQ SCH ×2 (10:00→12:48)
[2023-02-27] MEDS: ESCITALOPRAM OXALATE 10 MG TABLET PO SCH ×2 (10:00→12:48)
[2023-02-27] MEDS: BISACODYL 5 MG TABLET.DR (FP) PO SCH ×2 (10:00→12:48)
[2023-02-27] MEDS: TAMSULOSIN HCL 0.4 MG CAP PO SCH ×2 (10:00→12:47)
[2023-02-27] MEDS: VALSARTAN 40 MG TABLET PO SCH ×2 (10:00→12:49)
[2023-02-27] MEDS: PANTOPRAZOLE 40 MG TABLET PO SCH ×2 (10:01→12:48)
[2023-02-27] MEDS: RIFAXIMIN 550 MG TABLET PO SCH ×2 (10:01→12:48)
[2023-02-27] MEDS: metoPROLOL SUCCINATE 25 MG TAB.SR.24H (FP) PO SCH ×2 (10:01→12:48)
[2023-02-27] MEDS ORDERED: EPOETIN ALFA-EPBX 20,000 UNIT/ML VIAL SQ ONE (11:00)
[2023-02-27 11:29] LABS: HEMATOCRIT 26.1 % (35.4-49); HEMOGLOBIN 8.5 GM/dL (11.7-16.9); MCH 33.2 pg (25.7-33.7); MCHC 32.5 g/dl (32.0-35.9); MEAN CELL VOLUME 102.4 fl (80-96); MEAN PLT VOLUME 7.1 fl (7.5-11.1); PLATELET COUNT 151 10^3/uL (134-434); RBC 2.55 M/mm3 (4.00-5.60); RDW 23.9 % (11.9-15.9); WHITE BLOOD COUNT 6.6 K/mm3 (4.0-10.0)
[2023-02-27 11:44] LABS: CHLORIDE 113 mmol/L (98-107); POTASSIUM 3.8 mmol/L (3.5-5.1); SODIUM 143 mmol/L (136-145)
[2023-02-27 11:46] LABS: ANION GAP 9 MMOL/L (8-16); BLOOD UREA NITROGEN 65.5 mg/dL (7-18); CALCIUM 8.5 mg/dL (8.5-10.1); CO2 21 mmol/L (21-32); GLUCOSE,RANDOM 142 mg/dL (74-106)
[2023-02-27 11:56] LABS: CREATININE 8.1 mg/dL (0.55-1.3)
[2023-02-27 12:58] VITALS: PULSE 74
[2023-02-27 15:46] VITALS: BP 113/76; RESP 20; TEMP 98.3
== END 2023-02-27 17:09 ==
LOC: JER 11:44 → UNDOADMOB 14:10 → JERBED 14:10 → JASUSAT 15:59 → J8W 15:59 → JASUSAT 02-26 15:11 → J8W 02-26 15:11 → JASUSAT 02-27 17:09
PROVIDERS: ATTEND Internal Medicine
PROC: 057F3ZZ Dilation of Left Cephalic Vein, Percutaneous Approach (ICD-10-PCS; principal; 2023-02-26 13:30)
DX: T82.858A Stenosis of other vascular prosthetic devices, implants and grafts, initial encounter (principal); I12.9 Hypertensive chronic kidney disease with stage 1 through stage 4 chronic kidney disease, or unspecified chronic kidney disease; E11.22 Type 2 diabetes mellitus with diabetic chronic kidney disease; N18.9 Chronic kidney disease, unspecified
CPT/HCPCS: 0241U-QW; 36415; 76000-TC-FY; 80048; 80053; 83735; 84100; 84484; 85025; 85027; 85610; 85730; 86850; 86900; 86901; 93005; 93010; 94760; 99285-25; C1757; J1644

== ENCOUNTER → 2023-03-24 | Emergency (ER) | payer OTHER ==
[~2023-03-24] MED LIST: ACETAMINOPHEN 325 MG TABLET (FP) PO ONE; DIPHTH,PERTUSS(ACELL),TET 0.5 ML DISP.SYRIN IM ONE
[2023-03-24 01:36] VITALS: PULSE 70; BMI 29.0
[2023-03-24 05:23] VITALS: RESP 20
[2023-03-24 05:33] LABS: BASO % 0.8 % (0-2.0); EOS % 0.4 % (0-4.5); HEMOGLOBIN 9.8 GM/dL (11.7-16.9); LYMPH % 15.4 % (8-40); MCH 32.9 pg (25.7-33.7); MCHC 32.7 g/dl (32.0-35.9); MEAN CELL VOLUME 100.6 fl (80-96); MEAN PLT VOLUME 7.6 fl (7.5-11.1); MONO % 7.1 % (3.8-10.2); NEUT % 76.3 % (42.8-82.8); PLATELET COUNT 163 10^3/uL (134-434); RBC 2.98 M/mm3 (4.00-5.60); RDW 20.5 % (11.9-15.9); WHITE BLOOD COUNT 8.3 K/mm3 (4.0-10.0)
[2023-03-24 06:26] LABS: POTASSIUM 4.9 mmol/L (3.5-5.1)
[2023-03-24 06:28] LABS: ALBUMIN 2.8 g/dl (3.4-5.0); CALCIUM 8.5 mg/dL (8.5-10.1)
[2023-03-24 06:29] LABS: BLOOD UREA NITROGEN 57.4 mg/dL (7-18)
[2023-03-24 06:31] LABS: CREATININE 6.2 mg/dL (0.55-1.3)
[2023-03-24 06:33] LABS: BILIRUBIN,TOTAL 0.5 mg/dL (0.2-1); TOT PROT 7.3 g/dl (6.4-8.2)
[2023-03-24 10:12] LABS: ANISOCYTOSIS 1+; MACROCYTOSIS 1+
[2023-03-24 10:30] VITALS: BP 119/57; TEMP 98.3
== END | disposition home or self-care (01) ==
LOC: JER 01:25
PROC: 0HQ0XZZ Repair Scalp Skin, External Approach (ICD-10-PCS; principal; 2023-03-24)
PROC: 3E0234Z Introduction of Serum, Toxoid and Vaccine into Muscle, Percutaneous Approach (ICD-10-PCS; 2023-03-24)
DX: S01.81XA Laceration without foreign body of other part of head, initial encounter (principal); M54.6 Pain in thoracic spine; M54.9 Dorsalgia, unspecified; W06.XXXA Fall from bed, initial encounter; Y92.128 Other place in nursing home as the place of occurrence of the external cause
CPT/HCPCS: 12002-25; 36415; 70450-TC; 71045-TC-FY; 72125-TC; 72170-TC-FY; 80053; 84484; 85025; 90471; 90715; 93005; 93010; 99285-25

== ENCOUNTER 2023-05-12 23:27 | Inpatient (IN) | payer OTHER ==
[2023-05-13] MEDS ORDERED: ACETAMINOPHEN 1000 MG/100 ML BAG IVPB ONE (00:39)
[2023-05-13] MEDS ORDERED: ACETAMINOPHEN INJECTION 100 ML IVPB ONE (00:55)
[2023-05-13 01:08] LABS: BASO % 0.6 % (0-2.0); EOS % 2.2 % (0-4.5); HEMOGLOBIN 8.1 GM/dL (11.7-16.9); LYMPH % 13.8 % (8-40); MCH 33.3 pg (25.7-33.7); MCHC 31.2 g/dl (32.0-35.9); MEAN CELL VOLUME 106.9 fl (80-96); MEAN PLT VOLUME 7.4 fl (7.5-11.1); MONO % 9.6 % (3.8-10.2); NEUT % 73.8 % (42.8-82.8); PLATELET COUNT 135 10^3/uL (134-434); RBC 2.43 M/mm3 (4.00-5.60); RDW 21.4 % (11.9-15.9)
[2023-05-13 01:14] LABS: VENOUS BASE EXCESS -5.2 mmol/L (-2-2); VENOUS O2 SATURATION 78.1 % (70-80); VENOUS PCO2 48.4 mmHg (38-52); VENOUS PH 7.267 (7.310-7.410)
[2023-05-13 01:15] LABS: INR 1.9 (0.83-1.09); PROTHROMBIN TIME (PATIENT) 21.9 SEC (9.7-13.0)
[2023-05-13 01:18] LABS: ACTIVATED PTT 36.6 SECONDS (25.2-36.5)
[2023-05-13 01:25] LABS: POTASSIUM 3.6 mmol/L (3.5-5.1)
[2023-05-13 01:28] LABS: ALBUMIN 2.6 g/dl (3.4-5.0); CALCIUM 8.4 mg/dL (8.5-10.1)
[2023-05-13 01:29] LABS: BLOOD UREA NITROGEN 64.6 mg/dL (7-18); MAGNESIUM 2.1 mg/dL (1.8-2.4)
[2023-05-13 01:31] LABS: CREATININE 6.7 mg/dL (0.55-1.3)
[2023-05-13 01:33] LABS: BILIRUBIN,TOTAL 0.6 mg/dL (0.2-1); TOT PROT 7.4 g/dl (6.4-8.2)
[2023-05-13 04:05] LABS: ANISOCYTOSIS 2+; MACROCYTOSIS 2+
[2023-05-13] MEDS: metoPROLOL SUCCINATE 25 MG TAB.SR.24H (FP) PO SCH (12:48)
[2023-05-13] MEDS: TAMSULOSIN HCL 0.4 MG CAP PO SCH (12:48)
[2023-05-13] MEDS: ENOXAPARIN NA (PORCINE) 30 MG/0.3 ML DISP.SYRIN SQ SCH (12:48)
[2023-05-13] MEDS ORDERED: metoPROLOL SUCCINATE 25 MG TAB.SR.24H (FP) PO ONE (12:50)
[2023-05-13] MEDS ORDERED: ENOXAPARIN NA (PORCINE) 30 MG/0.3 ML DISP.SYRIN SQ ONE (12:50)
[2023-05-13] MEDS ORDERED: TAMSULOSIN HCL 0.4 MG CAP ONE (12:50)
[2023-05-13] MEDS ORDERED: ATORVASTATIN CA 20 MG TABLET (FP) ONE (22:18)
[2023-05-13] MEDS: RIFAXIMIN 550 MG TABLET PO SCH (23:28)
[2023-05-13] MEDS: ATORVASTATIN CA 20 MG TABLET (FP) PO SCH (23:28)
[2023-05-14] MEDS ORDERED: ENOXAPARIN NA (PORCINE) 30 MG/0.3 ML DISP.SYRIN SQ ONE (09:14)
[2023-05-14] MEDS ORDERED: metoPROLOL SUCCINATE 25 MG TAB.SR.24H (FP) PO ONE (09:14)
[2023-05-14] MEDS ORDERED: TAMSULOSIN HCL 0.4 MG CAP ONE (09:14)
[2023-05-14] MEDS: INSULIN SLIDING SCALE (NOVOLOG) 1 VIAL SQ SCH ×4 (09:45→23:19)
[2023-05-14] MEDS ORDERED: EPOETIN ALFA-EPBX 4,000 UNIT/ML VIAL SQ ONE ×2 (09:55)
[2023-05-14] MEDS: TAMSULOSIN HCL 0.4 MG CAP PO SCH (10:11)
[2023-05-14] MEDS: ENOXAPARIN NA (PORCINE) 30 MG/0.3 ML DISP.SYRIN SQ SCH (10:11)
[2023-05-14] MEDS: metoPROLOL SUCCINATE 25 MG TAB.SR.24H (FP) PO SCH (10:12)
[2023-05-14] MEDS: RIFAXIMIN 550 MG TABLET PO SCH ×2 (11:11→23:17)
[2023-05-14 13:08] LABS: BASO % 0.9 % (0-2.0); EOS % 1.7 % (0-4.5); HEMATOCRIT 28.5 % (35.4-49); HEMOGLOBIN 9.1 GM/dL (11.7-16.9); LYMPH % 14.8 % (8-40); MCH 33.4 pg (25.7-33.7); MCHC 31.8 g/dl (32.0-35.9); MEAN PLT VOLUME 7.7 fl (7.5-11.1); MONO % 8.7 % (3.8-10.2); NEUT % 73.9 % (42.8-82.8); PLATELET COUNT 158 10^3/uL (134-434); RBC 2.71 M/mm3 (4.00-5.60); RDW 20.5 % (11.9-15.9); WHITE BLOOD COUNT 7.4 K/mm3 (4.0-10.0)
[2023-05-14 13:24] LABS: POTASSIUM 3.1 mmol/L (3.5-5.1)
[2023-05-14 13:26] LABS: CALCIUM 8.9 mg/dL (8.5-10.1)
[2023-05-14 13:30] LABS: BILIRUBIN,TOTAL 0.7 mg/dL (0.2-1); CREATININE 2.7 mg/dL (0.55-1.3)
[2023-05-14] MEDS ORDERED: SODIUM CHLORIDE 250 ML IV PRN (14:00)
[2023-05-14] MEDS ORDERED: EPOETIN ALFA EPBX IVPUSH ONE (14:00)
[2023-05-14] MEDS ORDERED: [UNRECOGNIZED DRUG - OTHER] IVPUSH ONE (14:00)
[2023-05-14 14:07] LABS: ALBUMIN 3.5 g/dl (3.4-5.0); BLOOD UREA NITROGEN 16.3 mg/dL (7-18); TOT PROT 9.6 g/dl (6.4-8.2)
[2023-05-14] MEDS ORDERED: POTASSIUM CHLORIDE ORAL LIQUID 20 MEQ/15 ML PO ONE (14:45)
[2023-05-14] MEDS ORDERED: POTASSIUM CHLORIDE ORAL LIQUID 20 MEQ/15 ML ONE (16:59)
[2023-05-14] MEDS: APIXABAN 2.5 MG TABLET PO SCH (23:16)
[2023-05-14] MEDS: ATORVASTATIN CA 20 MG TABLET (FP) PO SCH (23:17)
[2023-05-14] MEDS ORDERED: INSULIN (NOVOLOG) ASPART 100 UNITS/ML 10ML VIAL ONE (23:19)
[2023-05-15 00:05] VITALS: BMI 26.9
[2023-05-15 03:19] VITALS: RESP 18
[2023-05-15] MEDS: INSULIN SLIDING SCALE (NOVOLOG) 1 VIAL SQ SCH ×4 (06:04→21:51)
[2023-05-15] MEDS: TAMSULOSIN HCL 0.4 MG CAP PO SCH (10:20)
[2023-05-15] MEDS: APIXABAN 2.5 MG TABLET PO SCH ×3 (10:20→21:50)
[2023-05-15] MEDS: metoPROLOL SUCCINATE 25 MG TAB.SR.24H (FP) PO SCH (10:21)
[2023-05-15] MEDS ORDERED: SODIUM CHLORIDE 250 ML IV PRN (10:26)
[2023-05-15] MEDS: RIFAXIMIN 550 MG TABLET PO SCH ×3 (11:26→21:51)
[2023-05-15 11:45] LABS: BASO % 1.3 % (0-2.0); EOS % 0.8 % (0-4.5); HEMATOCRIT 25.9 % (35.4-49); HEMOGLOBIN 8.2 GM/dL (11.7-16.9); LYMPH % 11.4 % (8-40); MCH 33.5 pg (25.7-33.7); MCHC 31.7 g/dl (32.0-35.9); MEAN CELL VOLUME 105.4 fl (80-96); MEAN PLT VOLUME 7.7 fl (7.5-11.1); MONO % 12.1 % (3.8-10.2); NEUT % 74.4 % (42.8-82.8); PLATELET COUNT 135 10^3/uL (134-434); RBC 2.46 M/mm3 (4.00-5.60); RDW 20.6 % (11.9-15.9); WHITE BLOOD COUNT 7.3 K/mm3 (4.0-10.0)
[2023-05-15 12:03] LABS: POTASSIUM 3.9 mmol/L (3.5-5.1)
[2023-05-15 12:06] LABS: CALCIUM 9.1 mg/dL (8.5-10.1)
[2023-05-15 12:11] LABS: CREATININE 6.9 mg/dL (0.55-1.3)
[2023-05-15 12:12] LABS: BILIRUBIN,TOTAL 0.8 mg/dL (0.2-1)
[2023-05-15] MEDS ORDERED: INSULIN (NOVOLOG) ASPART 100 UNITS/ML 10ML VIAL ONE ×2 (12:35→18:26)
[2023-05-15 12:38] LABS: ALBUMIN 2.8 g/dl (3.4-5.0); BLOOD UREA NITROGEN 65.4 mg/dL (7-18); TOT PROT 7.5 g/dl (6.4-8.2)
[2023-05-15] MEDS ORDERED: EPOETIN ALFA-EPBX 10,000 UNIT/ML VIAL SQ ONE (14:30)
[2023-05-15] MEDS ORDERED: EPOETIN ALFA-EPBX 10,000 UNIT, EPOETIN ALFA-EPBX 2,000 UNIT, EPOETIN ALFA-EPBX 3,000 UNIT SQ ONE (14:30)
[2023-05-15] MEDS: ALBUMIN HUMAN 25% 12.5 GM/50 ML VIAL IV SCH ×3 (14:45→18:05)
[2023-05-15] MEDS: ATORVASTATIN CA 20 MG TABLET (FP) PO SCH ×2 (21:48→21:52)
[2023-05-16] MEDS: INSULIN SLIDING SCALE (NOVOLOG) 1 VIAL SQ SCH ×2 (06:00→12:04)
[2023-05-16 06:03] VITALS: TEMP 97.8
[2023-05-16] MEDS: TAMSULOSIN HCL 0.4 MG CAP PO SCH (08:23)
[2023-05-16] MEDS: metoPROLOL SUCCINATE 25 MG TAB.SR.24H (FP) PO SCH (09:08)
[2023-05-16] MEDS: APIXABAN 2.5 MG TABLET PO SCH (09:09)
[2023-05-16] MEDS: RIFAXIMIN 550 MG TABLET PO SCH (09:09)
[2023-05-16 09:11] VITALS: BP 98/50; PULSE 70
[2023-05-16] MEDS ORDERED: EPOETIN ALFA-EPBX 10,000 UNIT/ML VIAL IVPUSH ONE (10:47)
[2023-05-16] MEDS ORDERED: EPOETIN ALFA-EPBX 10,000 UNIT/ML VIAL SQ ONE (11:00)
== END 2023-05-16 12:21 | DRG 291 ==
LOC: JER 23:27 → JERBED 05-13 05:23 → J4W 05-14 22:46 → OBSVTOIN 05-15 14:07
PROVIDERS: ADMIT Family Medicine; ATTEND Family Medicine
PROC: 5A1D70Z Performance of Urinary Filtration, Intermittent, Less than 6 Hours Per Day (ICD-10-PCS; principal; 2023-05-14)
PROC: 5A1D70Z Performance of Urinary Filtration, Intermittent, Less than 6 Hours Per Day (ICD-10-PCS; 2023-05-15)
DX: I13.2 Hypertensive heart and chronic kidney disease with heart failure and with stage 5 chronic kidney disease, or end stage renal disease (principal); I50.33 Acute on chronic diastolic (congestive) heart failure; N18.6 End stage renal disease; J18.9 Pneumonia, unspecified organism; E87.20 Acidosis, unspecified; I31.39 Other pericardial effusion (noninflammatory); N04.9 Nephrotic syndrome with unspecified morphologic changes; J98.11 Atelectasis; D64.9 Anemia, unspecified; K21.9 Gastro-esophageal reflux disease without esophagitis; N40.0 Benign prostatic hyperplasia without lower urinary tract symptoms; M10.9 Gout, unspecified; I48.0 Paroxysmal atrial fibrillation; K59.00 Constipation, unspecified; I25.10 Atherosclerotic heart disease of native coronary artery without angina pectoris; E78.5 Hyperlipidemia, unspecified; R10.84 Generalized abdominal pain; F03.90 Unspecified dementia, unspecified severity, without behavioral disturbance, psychotic disturbance, mood disturbance, and anxiety; E11.22 Type 2 diabetes mellitus with diabetic chronic kidney disease; E05.90 Thyrotoxicosis, unspecified without thyrotoxic crisis or storm; Z99.2 Dependence on renal dialysis; Z95.0 Presence of cardiac pacemaker; Z96.653 Presence of artificial knee joint, bilateral
CPT/HCPCS: 0241U-QW; 36415; 70450-TC; 71250-TC; 74176-TC; 80053; 82607; 82728; 82746; 82803; 82962; 83540; 83550; 83605; 83690; 83735; 84100; 84439; 84443; 84466; 84484; 85025; 85045; 85610; 85730; 86803; 86850; 86900; 86901; 87040; 87340; 93005; 93010; 93306-TC; 99285-25; G0378; P9047; Q5106

== ENCOUNTER 2023-05-26 12:15 | Observation (INO) | payer OTHER ==
[2023-05-26 13:42] LABS: BASO % 0.6 % (0-2.0); EOS % 1.3 % (0-4.5); HEMATOCRIT 24.4 % (35.4-49); HEMOGLOBIN 7.5 GM/dL (11.7-16.9); LYMPH % 13.5 % (8-40); MCH 34.6 pg (25.7-33.7); MCHC 30.9 g/dl (32.0-35.9); MEAN CELL VOLUME 111.8 fl (80-96); MEAN PLT VOLUME 7.3 fl (7.5-11.1); MONO % 8.4 % (3.8-10.2); NEUT % 76.2 % (42.8-82.8); PLATELET COUNT 156 10^3/uL (134-434); RBC 2.18 M/mm3 (4.00-5.60); RDW 21.7 % (11.9-15.9); WHITE BLOOD COUNT 7.4 K/mm3 (4.0-10.0)
[2023-05-26 13:48] LABS: INR 1.75 (0.83-1.09); PROTHROMBIN TIME (PATIENT) 20.2 SEC (9.7-13.0)
[2023-05-26 13:51] LABS: ACTIVATED PTT 34.7 SECONDS (25.2-36.5)
[2023-05-26 14:10] LABS: POTASSIUM 4.1 mmol/L (3.5-5.1)
[2023-05-26 14:12] LABS: CALCIUM 8.4 mg/dL (8.5-10.1)
[2023-05-26 14:13] LABS: ALBUMIN 2.8 g/dl (3.4-5.0); BLOOD UREA NITROGEN 65.3 mg/dL (7-18); MAGNESIUM 2.4 mg/dL (1.8-2.4)
[2023-05-26 14:15] LABS: CREATININE 6.6 mg/dL (0.55-1.3)
[2023-05-26 14:17] LABS: BILIRUBIN,TOTAL 0.6 mg/dL (0.2-1); TOT PROT 7.6 g/dl (6.4-8.2)
[2023-05-26 14:28] LABS: ANISOCYTOSIS 2+; MACROCYTOSIS 3+
[2023-05-26] MEDS ORDERED: ACETAMINOPHEN 325 MG TABLET (FP) PO PRN (16:40)
[2023-05-26] MEDS ORDERED: BISACODYL 5 MG TABLET.DR (FP) PO PRN (16:40)
[2023-05-26] MEDS: RIFAXIMIN 550 MG TABLET PO SCH (23:48)
[2023-05-26] MEDS: ATORVASTATIN CA 10 MG TABLET (FP) PO SCH (23:48)
[2023-05-26] MEDS: INSULIN SLIDING SCALE (NOVOLOG) 1 VIAL SQ SCH (23:48)
[2023-05-27] MEDS: INSULIN SLIDING SCALE (NOVOLOG) 1 VIAL SQ SCH ×4 (06:30→21:05)
[2023-05-27 07:46] LABS: HEMATOCRIT 24.4 % (35.4-49); MCH 34.4 pg (25.7-33.7); MCHC 32.8 g/dl (32.0-35.9); MEAN CELL VOLUME 104.6 fl (80-96); MEAN PLT VOLUME 7.4 fl (7.5-11.1); PLATELET COUNT 143 10^3/uL (134-434); RBC 2.33 M/mm3 (4.00-5.60); RDW 23.9 % (11.9-15.9); WHITE BLOOD COUNT 7.8 K/mm3 (4.0-10.0)
[2023-05-27 09:31] VITALS: BMI 26.6
[2023-05-27] MEDS ORDERED: IRON SUCROSE INJECTION 200 MG in SODIUM CHLORIDE 90 ML IVPB ONE (10:00)
[2023-05-27] MEDS ORDERED: VALSARTAN 40 MG TABLET PO SCH (10:00)
[2023-05-27] MEDS: TAMSULOSIN HCL 0.4 MG CAP PO SCH (10:32)
[2023-05-27] MEDS: RIFAXIMIN 550 MG TABLET PO SCH ×2 (10:32→21:06)
[2023-05-27] MEDS: ESCITALOPRAM OXALATE 10 MG TABLET PO SCH (10:39)
[2023-05-27] MEDS: PANTOPRAZOLE 40 MG TABLET PO SCH (10:39)
[2023-05-27] MEDS ORDERED: VALSARTAN 80 MG TABLET PO SCH (10:41)
[2023-05-27] MEDS: ATORVASTATIN CA 10 MG TABLET (FP) PO SCH (21:05)
[2023-05-28 05:39] VITALS: RESP 20
[2023-05-28] MEDS: INSULIN SLIDING SCALE (NOVOLOG) 1 VIAL SQ SCH ×3 (06:03→17:23)
[2023-05-28] MEDS: RIFAXIMIN 550 MG TABLET PO SCH (09:58)
[2023-05-28] MEDS: PANTOPRAZOLE 40 MG TABLET PO SCH (09:58)
[2023-05-28] MEDS: TAMSULOSIN HCL 0.4 MG CAP PO SCH (09:59)
[2023-05-28] MEDS: ESCITALOPRAM OXALATE 10 MG TABLET PO SCH (09:59)
[2023-05-28 18:40] VITALS: BP 106/60; PULSE 71; TEMP 98
== END 2023-05-28 18:55 ==
LOC: JER 12:15 → JERBED 13:48 → J8W 23:41
PROVIDERS: ADMIT Family Medicine; ATTEND Family Medicine
PROC: 30233N1 Transfusion of Nonautologous Red Blood Cells into Peripheral Vein, Percutaneous Approach (ICD-10-PCS; principal; 2023-05-26)
PROC: 3E033GC Introduction of Other Therapeutic Substance into Peripheral Vein, Percutaneous Approach (ICD-10-PCS; 2023-05-26)
DX: D64.9 Anemia, unspecified (principal); E11.22 Type 2 diabetes mellitus with diabetic chronic kidney disease; I12.0 Hypertensive chronic kidney disease with stage 5 chronic kidney disease or end stage renal disease; N18.6 End stage renal disease; Z99.2 Dependence on renal dialysis; F03.90 Unspecified dementia, unspecified severity, without behavioral disturbance, psychotic disturbance, mood disturbance, and anxiety; R79.9 Abnormal finding of blood chemistry, unspecified; I48.91 Unspecified atrial fibrillation; E78.5 Hyperlipidemia, unspecified; I11.0 Hypertensive heart disease with heart failure; I50.9 Heart failure, unspecified; Z96.653 Presence of artificial knee joint, bilateral; Z95.5 Presence of coronary angioplasty implant and graft; Z95.0 Presence of cardiac pacemaker; Z87.891 Personal history of nicotine dependence
CPT/HCPCS: 36415; 36430; 71045-TC-FY; 80053; 82728; 82962; 83540; 83550; 83735; 84100; 85025; 85027; 85610; 85730; 86850; 86900; 86901; 86922; 93005; 93010; 96366; 99285-25; G0378; J1756; P9058

== ENCOUNTER 2023-06-02 13:14 | Inpatient (IN) | payer OTHER ==
[2023-06-02 16:04] LABS: BASO % 0.9 % (0-2.0); EOS % 1.2 % (0-4.5); HEMATOCRIT 28.1 % (35.4-49); HEMOGLOBIN 8.9 GM/dL (11.7-16.9); LYMPH % 16.1 % (8-40); MCH 33.5 pg (25.7-33.7); MCHC 31.7 g/dl (32.0-35.9); MEAN CELL VOLUME 105.4 fl (80-96); MEAN PLT VOLUME 7.4 fl (7.5-11.1); MONO % 9.2 % (3.8-10.2); NEUT % 72.6 % (42.8-82.8); PLATELET COUNT 157 10^3/uL (134-434); RBC 2.66 M/mm3 (4.00-5.60); RDW 21.7 % (11.9-15.9); WHITE BLOOD COUNT 8.4 K/mm3 (4.0-10.0)
[2023-06-02 16:21] LABS: POTASSIUM 4.6 mmol/L (3.5-5.1)
[2023-06-02 16:23] LABS: ALBUMIN 2.6 g/dl (3.4-5.0); BLOOD UREA NITROGEN 61.5 mg/dL (7-18); CALCIUM 8.1 mg/dL (8.5-10.1)
[2023-06-02 16:26] LABS: ANISOCYTOSIS 2+; MACROCYTOSIS 2+; OVALOCYTE 1+
[2023-06-02 16:27] LABS: CREATININE 6.9 mg/dL (0.55-1.3)
[2023-06-02 16:29] LABS: BILIRUBIN,TOTAL 0.6 mg/dL (0.2-1); TOT PROT 7.2 g/dl (6.4-8.2)
[2023-06-02 16:30] LABS: INR 1.82 (0.83-1.09)
[2023-06-02 16:33] LABS: ACTIVATED PTT 36.6 SECONDS (25.2-36.5)
[2023-06-02] MEDS ORDERED: FUROSEMIDE 40 MG/4 ML INJECTABLE VIAL IVPUSH ONE (19:36)
[2023-06-02] MEDS ORDERED: FUROSEMIDE 40 MG/4 ML INJECTABLE VIAL ONE (19:47)
[2023-06-03 07:39] LABS: POTASSIUM 4.2 mmol/L (3.5-5.1)
[2023-06-03 07:41] LABS: ALBUMIN 2.7 g/dl (3.4-5.0); BLOOD UREA NITROGEN 64.6 mg/dL (7-18); CALCIUM 8.2 mg/dL (8.5-10.1)
[2023-06-03 07:44] LABS: CREATININE 7.3 mg/dL (0.55-1.3)
[2023-06-03 07:46] LABS: BILIRUBIN,TOTAL 0.6 mg/dL (0.2-1); TOT PROT 7.2 g/dl (6.4-8.2)
[2023-06-03 07:53] LABS: BASO % 0.8 % (0-2.0); EOS % 1.1 % (0-4.5); HEMATOCRIT 27.7 % (35.4-49); HEMOGLOBIN 8.8 GM/dL (11.7-16.9); LYMPH % 16.5 % (8-40); MCH 33.8 pg (25.7-33.7); MCHC 31.8 g/dl (32.0-35.9); MEAN CELL VOLUME 106.4 fl (80-96); MEAN PLT VOLUME 7.5 fl (7.5-11.1); MONO % 9.5 % (3.8-10.2); NEUT % 72.1 % (42.8-82.8); PLATELET COUNT 173 10^3/uL (134-434); RDW 20.9 % (11.9-15.9); WHITE BLOOD COUNT 7.6 K/mm3 (4.0-10.0)
[2023-06-03] MEDS ORDERED: VALSARTAN 80 MG TABLET ONE (07:54)
[2023-06-03] MEDS ORDERED: metoPROLOL SUCCINATE 25 MG TAB.SR.24H (FP) PO ONE (07:54)
[2023-06-03] MEDS ORDERED: ESCITALOPRAM OXALATE 10 MG TABLET ONE (07:54)
[2023-06-03] MEDS ORDERED: HEPARIN NA (PORCINE) 5,000 UNITS/ML 1ML VIAL ONE (07:55)
[2023-06-03] MEDS ORDERED: FERROUS SO4 325 MG TABLET (FP) ONE (07:55)
[2023-06-03] MEDS: INSULIN SLIDING SCALE (NOVOLOG) 1 VIAL SQ SCH ×4 (08:42→22:02)
[2023-06-03] MEDS: TAMSULOSIN HCL 0.4 MG CAP PO SCH (10:00)
[2023-06-03] MEDS: HEPARIN NA (PORCINE) 5,000 UNITS/ML 1ML VIAL SQ SCH ×2 (10:30→21:56)
[2023-06-03] MEDS: FERROUS SO4 325 MG TABLET (FP) PO SCH (10:58)
[2023-06-03] MEDS: ESCITALOPRAM OXALATE 10 MG TABLET PO SCH (10:58)
[2023-06-03] MEDS: metoPROLOL SUCCINATE 25 MG TAB.SR.24H (FP) PO SCH (10:59)
[2023-06-03] MEDS: VALSARTAN 40 MG TABLET PO SCH (11:20)
[2023-06-03 18:11] VITALS: BMI 27.2
[2023-06-03] MEDS: ATORVASTATIN CA 20 MG TABLET (FP) PO SCH (21:55)
[2023-06-04] MEDS: INSULIN SLIDING SCALE (NOVOLOG) 1 VIAL SQ SCH ×4 (06:31→22:14)
[2023-06-04 08:19] LABS: BASO % 1.1 % (0-2.0); EOS % 1.8 % (0-4.5); HEMATOCRIT 27.3 % (35.4-49); HEMOGLOBIN 8.8 GM/dL (11.7-16.9); LYMPH % 15.6 % (8-40); MCH 33.8 pg (25.7-33.7); MCHC 32.2 g/dl (32.0-35.9); MEAN PLT VOLUME 7.2 fl (7.5-11.1); MONO % 8.9 % (3.8-10.2); NEUT % 72.6 % (42.8-82.8); PLATELET COUNT 140 10^3/uL (134-434); RDW 21.2 % (11.9-15.9); WHITE BLOOD COUNT 6.5 K/mm3 (4.0-10.0)
[2023-06-04 08:33] LABS: CHLORIDE 108 mmol/L (98-107); POTASSIUM 4.5 mmol/L (3.5-5.1); SODIUM 142 mmol/L (136-145)
[2023-06-04 08:39] LABS: CALCIUM 8.5 mg/dL (8.5-10.1)
[2023-06-04 08:40] LABS: ALBUMIN 2.7 g/dl (3.4-5.0); ANION GAP 11 MMOL/L (8-16); CO2 24 mmol/L (21-32); GLUCOSE,RANDOM 81 mg/dL (74-106)
[2023-06-04 08:42] LABS: SGPT/ALT 18 U/L (13-61)
[2023-06-04 08:43] LABS: SGOT/AST 23 U/L (15-37)
[2023-06-04 08:44] LABS: BILIRUBIN,TOTAL 0.6 mg/dL (0.2-1); TOT PROT 7.1 g/dl (6.4-8.2)
[2023-06-04 08:45] LABS: ALK PHOS 161 U/L (45-117)
[2023-06-04 08:49] LABS: CREATININE 7.8 mg/dL (0.55-1.3)
[2023-06-04] MEDS: VALSARTAN 40 MG TABLET PO SCH (10:36)
[2023-06-04] MEDS: FERROUS SO4 325 MG TABLET (FP) PO SCH (10:37)
[2023-06-04] MEDS: ESCITALOPRAM OXALATE 10 MG TABLET PO SCH (10:37)
[2023-06-04] MEDS: TAMSULOSIN HCL 0.4 MG CAP PO SCH (10:37)
[2023-06-04] MEDS: metoPROLOL SUCCINATE 25 MG TAB.SR.24H (FP) PO SCH (10:38)
[2023-06-04] MEDS: HEPARIN NA (PORCINE) 5,000 UNITS/ML 1ML VIAL SQ SCH ×2 (10:39→22:11)
[2023-06-04] MEDS: ATORVASTATIN CA 20 MG TABLET (FP) PO SCH ×2 (22:10→22:14)
[2023-06-05] MEDS: INSULIN SLIDING SCALE (NOVOLOG) 1 VIAL SQ SCH ×4 (06:12→23:02)
[2023-06-05] MEDS ORDERED: SODIUM CHLORIDE 250 ML IV PRN (08:00)
[2023-06-05] MEDS ORDERED: EPOETIN ALFA-EPBX 10,000 UNIT/ML VIAL SQ ONE (08:00)
[2023-06-05 08:44] LABS: BASO % 1.1 % (0-2.0); EOS % 1.1 % (0-4.5); HEMATOCRIT 30.1 % (35.4-49); HEMOGLOBIN 9.4 GM/dL (11.7-16.9); LYMPH % 18.9 % (8-40); MCH 33.5 pg (25.7-33.7); MCHC 31.2 g/dl (32.0-35.9); MEAN CELL VOLUME 107.6 fl (80-96); MEAN PLT VOLUME 7.7 fl (7.5-11.1); MONO % 7.1 % (3.8-10.2); NEUT % 71.8 % (42.8-82.8); PLATELET COUNT 158 10^3/uL (134-434); RDW 21.3 % (11.9-15.9); WHITE BLOOD COUNT 7.5 K/mm3 (4.0-10.0)
[2023-06-05 08:57] LABS: CHLORIDE 107 mmol/L (98-107); POTASSIUM 4.7 mmol/L (3.5-5.1); SODIUM 141 mmol/L (136-145)
[2023-06-05 09:04] LABS: CALCIUM 8.7 mg/dL (8.5-10.1)
[2023-06-05 09:05] LABS: ANION GAP 12 MMOL/L (8-16); BLOOD UREA NITROGEN 77.3 mg/dL (7-18); CO2 22 mmol/L (21-32); GLUCOSE,RANDOM 88 mg/dL (74-106)
[2023-06-05 09:08] LABS: SGOT/AST 30 U/L (15-37); SGPT/ALT 22 U/L (13-61)
[2023-06-05 09:10] LABS: BILIRUBIN,TOTAL 0.6 mg/dL (0.2-1); TOT PROT 7.4 g/dl (6.4-8.2)
[2023-06-05 09:12] LABS: ALK PHOS 173 U/L (45-117)
[2023-06-05 09:25] LABS: CREATININE 8.5 mg/dL (0.55-1.3)
[2023-06-05] MEDS: ALBUMIN HUMAN 25% 12.5 GM/50 ML VIAL IV SCH ×3 (09:48→11:48)
[2023-06-05] MEDS: HEPARIN NA (PORCINE) 5,000 UNITS/ML 1ML VIAL SQ SCH ×2 (11:35→22:57)
[2023-06-05] MEDS: metoPROLOL SUCCINATE 25 MG TAB.SR.24H (FP) PO SCH ×2 (11:43→11:51)
[2023-06-05] MEDS: FERROUS SO4 325 MG TABLET (FP) PO SCH ×2 (11:44→11:51)
[2023-06-05] MEDS: ESCITALOPRAM OXALATE 10 MG TABLET PO SCH ×2 (11:44→11:51)
[2023-06-05] MEDS: VALSARTAN 40 MG TABLET PO SCH ×2 (11:44→11:51)
[2023-06-05] MEDS: TAMSULOSIN HCL 0.4 MG CAP PO SCH (11:45)
[2023-06-05] MEDS: ATORVASTATIN CA 20 MG TABLET (FP) PO SCH (22:57)
[2023-06-06] MEDS: INSULIN SLIDING SCALE (NOVOLOG) 1 VIAL SQ SCH ×3 (06:10→17:24)
[2023-06-06] MEDS: TAMSULOSIN HCL 0.4 MG CAP PO SCH (08:53)
[2023-06-06] MEDS: ESCITALOPRAM OXALATE 10 MG TABLET PO SCH (09:42)
[2023-06-06] MEDS: VALSARTAN 40 MG TABLET PO SCH (09:42)
[2023-06-06] MEDS: FERROUS SO4 325 MG TABLET (FP) PO SCH (09:42)
[2023-06-06] MEDS: metoPROLOL SUCCINATE 25 MG TAB.SR.24H (FP) PO SCH (09:42)
[2023-06-06] MEDS: HEPARIN NA (PORCINE) 5,000 UNITS/ML 1ML VIAL SQ SCH (09:43)
[2023-06-06] MEDS ORDERED: SODIUM CHLORIDE 250 ML IV PRN (12:14)
[2023-06-06 15:23] VITALS: RESP 18
[2023-06-06 18:47] VITALS: BP 110/64; PULSE 70; TEMP 97.6
[2023-06-07] MEDS ORDERED: EPOETIN ALFA-EPBX 10,000 UNIT/ML VIAL SQ ONE (12:14)
== END 2023-06-06 21:28 | DRG 314 ==
LOC: JER 13:14 → JERBED 16:42 → OBSVTOIN 06-03 02:29 → JERBED 06-03 17:40 → J4W 06-03 19:40
PROVIDERS: ADMIT Internal Medicine; ATTEND Internal Medicine
PROC: 5A1D70Z Performance of Urinary Filtration, Intermittent, Less than 6 Hours Per Day (ICD-10-PCS; principal; 2023-06-05)
DX: T82.858A Stenosis of other vascular prosthetic devices, implants and grafts, initial encounter (principal); N18.6 End stage renal disease; I13.2 Hypertensive heart and chronic kidney disease with heart failure and with stage 5 chronic kidney disease, or end stage renal disease; I31.39 Other pericardial effusion (noninflammatory); I50.42 Chronic combined systolic (congestive) and diastolic (congestive) heart failure; Y83.8 Other surgical procedures as the cause of abnormal reaction of the patient, or of later complication, without mention of misadventure at the time of the procedure; I25.10 Atherosclerotic heart disease of native coronary artery without angina pectoris; E78.5 Hyperlipidemia, unspecified; E11.22 Type 2 diabetes mellitus with diabetic chronic kidney disease; K21.9 Gastro-esophageal reflux disease without esophagitis; E87.79 Other fluid overload; K59.00 Constipation, unspecified; D63.1 Anemia in chronic kidney disease; N40.0 Benign prostatic hyperplasia without lower urinary tract symptoms; M10.9 Gout, unspecified; I48.91 Unspecified atrial fibrillation; F03.90 Unspecified dementia, unspecified severity, without behavioral disturbance, psychotic disturbance, mood disturbance, and anxiety; Z99.2 Dependence on renal dialysis; Z95.0 Presence of cardiac pacemaker; Z95.5 Presence of coronary angioplasty implant and graft; Z86.73 Personal history of transient ischemic attack (TIA), and cerebral infarction without residual deficits
CPT/HCPCS: 36415; 71045-TC-FY; 73030-TC-LT-FY; 73060-TC-LT-FY; 73070-TC-LT-FY; 80053; 82962; 84484; 85025; 85610; 85730; 87635; 93005; 93010; 93990-TC; 99285-25; G0378; J1644; Q5106

== ENCOUNTER 2023-07-05 05:02 | Day surgery (SDC) | payer OTHER ==
[2023-07-03 13:27] VITALS: BMI 29.1
[~2023-07-05 05:02] MED LIST changes: -ACETAMINOPHEN 325 MG TABLET (FP) PO ONE; -DIPHTH,PERTUSS(ACELL),TET 0.5 ML DISP.SYRIN IM ONE; +HEPARIN NA (PORCINE) 5,000 UNITS/ML 1ML VIAL TP ONE; +IOHEXOL 300 MG/ML INFUS..BTL IJ ONE; +LIDOCAINE HCL 1%, 10 MG/ML (20ML VIAL) INF ONE; +ceFAZolin SODIUM 1 GM VIAL IVPB ONE
[2023-07-05 09:12] LABS: POTASSIUM 4.7 mmol/L (3.5-5.1)
[2023-07-05] MEDS ORDERED: MIDAZOLAM HCL 2 MG/2 ML SINGLE DOSE VIAL ONE (09:12)
[2023-07-05 09:14] LABS: ALBUMIN 2.8 g/dl (3.4-5.0); BLOOD UREA NITROGEN 61.1 mg/dL (7-18)
[2023-07-05 09:17] LABS: CREATININE 6.7 mg/dL (0.55-1.3)
[2023-07-05 09:19] LABS: BILIRUBIN,TOTAL 0.5 mg/dL (0.2-1); TOT PROT 7.1 g/dl (6.4-8.2)
[2023-07-05] MEDS ORDERED: ceFAZolin SODIUM 1 GM VIAL IVPB ONE (09:45)
[2023-07-05] MEDS ORDERED: ONDANSETRON 4 MG/2 ML VIAL IVPUSH PRN (09:54)
[2023-07-05] MEDS ORDERED: ACETAMINOPHEN 325 MG TABLET (FP) PO ONE (09:54)
[2023-07-05] MEDS ORDERED: IOHEXOL 300 MG/ML INFUS..BTL IJ ONE ×2 (09:56)
[2023-07-05] MEDS ORDERED: LIDOCAINE HCL 1%, 10 MG/ML (20ML VIAL) INF ONE ×2 (09:56)
[2023-07-05] MEDS ORDERED: HEPARIN NA (PORCINE) 5,000 UNITS/ML 1ML VIAL TP ONE (09:56)
[2023-07-05 12:16] VITALS: RESP 18; TEMP 97.9
[2023-07-05 13:01] VITALS: BP 121/74; PULSE 69
== END 2023-07-05 12:55 ==
LOC: JASU-SURG 05:02
PROVIDERS: ATTEND Surgery Vascular Surgery
PROC: B51WYZA Fluoroscopy of Dialysis Shunt/Fistula using Other Contrast, Guidance (ICD-10-PCS; 2023-07-05)
PROC: 057F3ZZ Dilation of Left Cephalic Vein, Percutaneous Approach (ICD-10-PCS; principal; 2023-07-05 09:30)
DX: T82.858A Stenosis of other vascular prosthetic devices, implants and grafts, initial encounter (principal); Y82.8 Other medical devices associated with adverse incidents; Y92.9 Unspecified place or not applicable; E11.22 Type 2 diabetes mellitus with diabetic chronic kidney disease; I13.2 Hypertensive heart and chronic kidney disease with heart failure and with stage 5 chronic kidney disease, or end stage renal disease; I50.9 Heart failure, unspecified; N18.6 End stage renal disease; Z99.2 Dependence on renal dialysis; I48.91 Unspecified atrial fibrillation
CPT/HCPCS: 36415; 76000-TC-FY; 80053; 94760; C2623; J1644

== ENCOUNTER 2023-08-09 12:59 | Inpatient (IN) | payer OTHER ==
[2023-08-09 13:21] VITALS: BMI 25.1
[2023-08-09] MEDS ORDERED: HALOPERIDOL LACTATE 5 MG/ML IM ONE (17:43)
[2023-08-09] MEDS ORDERED: CEFTRIAXONE 1,000 MG in DEXTROSE 5%-WATER - 50 ML IVPB ONE (18:36)
[2023-08-09] MEDS ORDERED: AZITHROMYCIN IVPB 500 MG in DEXTROSE 5%-WATER - 250 ML IVPB ONE (18:36)
[2023-08-09 18:52] LABS: BASO % 0.6 % (0-2.0); EOS % 4.4 % (0-4.5); HEMATOCRIT 35.1 % (35.4-49); HEMOGLOBIN 10.7 GM/dL (11.7-16.9); LYMPH % 15.8 % (8-40); MCH 32.7 pg (25.7-33.7); MCHC 30.6 g/dl (32.0-35.9); MEAN CELL VOLUME 106.7 fl (80-96); MEAN PLT VOLUME 7.3 fl (7.5-11.1); MONO % 7.6 % (3.8-10.2); NEUT % 71.6 % (42.8-82.8); PLATELET COUNT 137 10^3/uL (134-434); RBC 3.29 M/mm3 (4.00-5.60); RDW 18.4 % (11.9-15.9); WHITE BLOOD COUNT 7.3 K/mm3 (4.0-10.0)
[2023-08-09 19:02] LABS: INR 1.89 (0.83-1.09); PROTHROMBIN TIME (PATIENT) 21.8 SEC (9.7-13.0)
[2023-08-09 19:10] LABS: POTASSIUM 4.9 mmol/L (3.5-5.1)
[2023-08-09 19:12] LABS: BLOOD UREA NITROGEN 61.4 mg/dL (7-18); CALCIUM 8.2 mg/dL (8.5-10.1)
[2023-08-09 19:13] LABS: ALBUMIN 2.7 g/dl (3.4-5.0)
[2023-08-09 19:16] LABS: CREATININE 7.1 mg/dL (0.55-1.3); TOT PROT 7.2 g/dl (6.4-8.2)
[2023-08-09 19:18] LABS: BILIRUBIN,TOTAL 0.5 mg/dL (0.2-1)
[2023-08-09] MEDS ORDERED: CEFTRIAXONE 1 GM/50 ML BAG ONE (19:22)
[2023-08-09] MEDS ORDERED: AZITHROMYCIN IVPB 500 MG/250 ML BAG IVPB ONE (19:30)
[2023-08-09] MEDS: ATORVASTATIN CA 20 MG TABLET (FP) PO SCH (21:08)
[2023-08-09 21:23] LABS: ANISOCYTOSIS 1+; MACROCYTOSIS 1+; OVALOCYTE 1+; TARGET CELLS 1+
[2023-08-10 06:39] LABS: BASO % 1.1 % (0-2.0); EOS % 3.8 % (0-4.5); HEMATOCRIT 34.2 % (35.4-49); HEMOGLOBIN 10.7 GM/dL (11.7-16.9); LYMPH % 14.9 % (8-40); MCH 33.4 pg (25.7-33.7); MCHC 31.4 g/dl (32.0-35.9); MEAN CELL VOLUME 106.5 fl (80-96); MEAN PLT VOLUME 7.6 fl (7.5-11.1); MONO % 9.4 % (3.8-10.2); NEUT % 70.8 % (42.8-82.8); PLATELET COUNT 136 10^3/uL (134-434); RBC 3.21 M/mm3 (4.00-5.60); WHITE BLOOD COUNT 6.8 K/mm3 (4.0-10.0)
[2023-08-10 07:25] LABS: CALCIUM 7.4 mg/dL (8.5-10.1); CHLORIDE 110 mmol/L (98-107); SODIUM 138 mmol/L (136-145)
[2023-08-10 07:26] LABS: ALBUMIN 2.7 g/dl (3.4-5.0); BLOOD UREA NITROGEN 61.6 mg/dL (7-18); CO2 23 mmol/L (21-32); GLUCOSE,RANDOM 79 mg/dL (74-106)
[2023-08-10 07:28] LABS: CREATININE 6.9 mg/dL (0.55-1.3); SGOT/AST 53 U/L (15-37); SGPT/ALT 18 U/L (13-61)
[2023-08-10 07:29] LABS: BILIRUBIN,TOTAL 0.4 mg/dL (0.2-1); TOT PROT 7.4 g/dl (6.4-8.2)
[2023-08-10 07:32] LABS: ALK PHOS 154 U/L (45-117)
[2023-08-10 07:48] LABS: ANION GAP 6 MMOL/L (8-16); POTASSIUM 7.5 mmol/L (3.5-5.1)
[2023-08-10] MEDS ORDERED: TAMSULOSIN HCL 0.4 MG CAP ONE (08:41)
[2023-08-10] MEDS: TAMSULOSIN HCL 0.4 MG CAP PO SCH (08:45)
[2023-08-10] MEDS ORDERED: CEFTRIAXONE 1 GM in DEXTROSE 5%-WATER - 50 ML IVPB SCH (10:00)
[2023-08-10] MEDS ORDERED: AZITHROMYCIN IVPB 250 MG in DEXTROSE 5%-WATER - 250 ML IVPB SCH (10:00)
[2023-08-10] MEDS ORDERED: AZITHROMYCIN IVPB 500 MG/250 ML BAG IVPB ONE (10:36)
[2023-08-10] MEDS ORDERED: CEFTRIAXONE 1 GM/50 ML BAG ONE (10:36)
[2023-08-10] MEDS: ESCITALOPRAM OXALATE 10 MG TABLET PO SCH (10:49)
[2023-08-10] MEDS: FERROUS SO4 325 MG TABLET (FP) PO SCH (10:49)
[2023-08-10] MEDS: metoPROLOL SUCCINATE 25 MG TAB.SR.24H (FP) PO SCH (10:49)
[2023-08-10] MEDS: HEPARIN NA (PORCINE) 5,000 UNITS/ML 1ML VIAL SQ SCH ×2 (10:49→22:41)
[2023-08-10] MEDS: LOSARTAN POTASSIUM 25 MG TABLET PO SCH (10:49)
[2023-08-10] MEDS ORDERED: SODIUM CHLORIDE 250 ML IV PRN (10:55)
[2023-08-10 14:51] LABS: POTASSIUM 4.9 mmol/L (3.5-5.1)
[2023-08-10 14:52] LABS: BLOOD UREA NITROGEN 66.9 mg/dL (7-18); CALCIUM 7.6 mg/dL (8.5-10.1)
[2023-08-10 15:04] LABS: CREATININE 7.3 mg/dL (0.55-1.3)
[2023-08-10] MEDS ORDERED: PIPERACILLIN/TAZOB 2.25 GM 2.25 GM/50 ML BAG IVPB ONE (17:44)
[2023-08-10] MEDS: PIPERACILLIN/TAZOB 2.25 GM 2.25 GM in DEXTROSE 5%-WATER - 50 ML IVPB SCH (18:23)
[2023-08-10] MEDS: ATORVASTATIN CA 20 MG TABLET (FP) PO SCH (22:36)
[2023-08-11] MEDS ORDERED: PIPERACILLIN/TAZOB 2.25 GM 2.25 GM/50 ML BAG IVPB ONE ×2 (02:16→08:53)
[2023-08-11] MEDS: PIPERACILLIN/TAZOB 2.25 GM 2.25 GM in DEXTROSE 5%-WATER - 50 ML IVPB SCH ×2 (02:35→09:08)
[2023-08-11] MEDS ORDERED: HEPARIN NA (PORCINE) 5,000 UNITS/ML 1ML VIAL ONE (08:54)
[2023-08-11] MEDS: TAMSULOSIN HCL 0.4 MG CAP PO SCH (09:08)
[2023-08-11] MEDS: ESCITALOPRAM OXALATE 10 MG TABLET PO SCH (09:08)
[2023-08-11] MEDS: LOSARTAN POTASSIUM 25 MG TABLET PO SCH (09:08)
[2023-08-11] MEDS: HEPARIN NA (PORCINE) 5,000 UNITS/ML 1ML VIAL SQ SCH ×2 (09:08→21:29)
[2023-08-11] MEDS: FERROUS SO4 325 MG TABLET (FP) PO SCH (09:08)
[2023-08-11] MEDS: metoPROLOL SUCCINATE 25 MG TAB.SR.24H (FP) PO SCH (09:08)
[2023-08-11] MEDS: ACETAMINOPHEN 325 MG TABLET (FP) PO PRN (10:28)
[2023-08-11] MEDS: ATORVASTATIN CA 20 MG TABLET (FP) PO SCH (21:29)
[2023-08-12] MEDS: ACETAMINOPHEN 325 MG TABLET (FP) PO PRN (03:46)
[2023-08-12] MEDS ORDERED: SODIUM CHLORIDE 250 ML IV PRN (07:58)
[2023-08-12] MEDS: TAMSULOSIN HCL 0.4 MG CAP PO SCH (08:50)
[2023-08-12 09:23] LABS: BASO % 0.8 % (0-2.0); EOS % 3.4 % (0-4.5); HEMATOCRIT 31.2 % (35.4-49); MEAN CELL VOLUME 103.1 fl (80-96); MEAN PLT VOLUME 7.1 fl (7.5-11.1); MONO % 10.4 % (3.8-10.2); NEUT % 68.4 % (42.8-82.8); PLATELET COUNT 126 10^3/uL (134-434); RBC 3.02 M/mm3 (4.00-5.60); RDW 18.2 % (11.9-15.9); WHITE BLOOD COUNT 6.5 K/mm3 (4.0-10.0)
[2023-08-12] MEDS: FERROUS SO4 325 MG TABLET (FP) PO SCH (09:32)
[2023-08-12] MEDS: metoPROLOL SUCCINATE 25 MG TAB.SR.24H (FP) PO SCH (09:32)
[2023-08-12] MEDS: ESCITALOPRAM OXALATE 10 MG TABLET PO SCH (09:32)
[2023-08-12] MEDS: LOSARTAN POTASSIUM 25 MG TABLET PO SCH (09:32)
[2023-08-12 09:48] LABS: POTASSIUM 4.3 mmol/L (3.5-5.1)
[2023-08-12 09:55] LABS: CALCIUM 7.9 mg/dL (8.5-10.1)
[2023-08-12 09:56] LABS: ALBUMIN 2.5 g/dl (3.4-5.0); BLOOD UREA NITROGEN 66.2 mg/dL (7-18)
[2023-08-12 09:59] LABS: CREATININE 7.4 mg/dL (0.55-1.3)
[2023-08-12 10:00] LABS: BILIRUBIN,TOTAL 0.6 mg/dL (0.2-1)
[2023-08-12] MEDS ORDERED: HEPARIN NA (PORCINE) 5,000 UNITS/ML 1ML VIAL SQ SCH (10:00)
[2023-08-12 10:02] LABS: TOT PROT 6.5 g/dl (6.4-8.2)
[2023-08-12] MEDS ORDERED: FLU VACCINE (FLULAVAL) PF 60 MCG/0.5 ML SYRINGE 2023-2024 IM ONE (16:09)
[2023-08-12] MEDS: ATORVASTATIN CA 20 MG TABLET (FP) PO SCH (21:53)
[2023-08-12] MEDS: APIXABAN 2.5 MG TABLET PO SCH (21:53)
[2023-08-13] MEDS: TAMSULOSIN HCL 0.4 MG CAP PO SCH (09:39)
[2023-08-13] MEDS: LOSARTAN POTASSIUM 25 MG TABLET PO SCH (09:40)
[2023-08-13] MEDS: APIXABAN 2.5 MG TABLET PO SCH ×2 (09:40→22:58)
[2023-08-13] MEDS: ESCITALOPRAM OXALATE 10 MG TABLET PO SCH (09:40)
[2023-08-13] MEDS: metoPROLOL SUCCINATE 25 MG TAB.SR.24H (FP) PO SCH (09:40)
[2023-08-13] MEDS: FERROUS SO4 325 MG TABLET (FP) PO SCH (09:41)
[2023-08-13 17:13] VITALS: PULSE 70
[2023-08-13] MEDS: ATORVASTATIN CA 20 MG TABLET (FP) PO SCH (22:58)
[2023-08-13 23:53] VITALS: BP 110/67; RESP 13; TEMP 98
== END 2023-08-14 00:25 | DRG 291 ==
LOC: JER 12:59 → JERBED 18:29 → OBSVTOIN 08-10 00:46 → J5S 08-11 15:12
PROVIDERS: ADMIT Internal Medicine; ATTEND Internal Medicine
PROC: 5A1D70Z Performance of Urinary Filtration, Intermittent, Less than 6 Hours Per Day (ICD-10-PCS; principal; 2023-08-09)
DX: I13.2 Hypertensive heart and chronic kidney disease with heart failure and with stage 5 chronic kidney disease, or end stage renal disease (principal); G93.41 Metabolic encephalopathy; N18.6 End stage renal disease; I31.39 Other pericardial effusion (noninflammatory); I47.20 Ventricular tachycardia, unspecified; E11.22 Type 2 diabetes mellitus with diabetic chronic kidney disease; I25.10 Atherosclerotic heart disease of native coronary artery without angina pectoris; Z99.2 Dependence on renal dialysis; K21.9 Gastro-esophageal reflux disease without esophagitis; I48.0 Paroxysmal atrial fibrillation; I50.42 Chronic combined systolic (congestive) and diastolic (congestive) heart failure; G20.A1 Parkinson's disease without dyskinesia, without mention of fluctuations; I34.0 Nonrheumatic mitral (valve) insufficiency; N40.0 Benign prostatic hyperplasia without lower urinary tract symptoms; M10.9 Gout, unspecified; F03.90 Unspecified dementia, unspecified severity, without behavioral disturbance, psychotic disturbance, mood disturbance, and anxiety; E78.5 Hyperlipidemia, unspecified; E11.51 Type 2 diabetes mellitus with diabetic peripheral angiopathy without gangrene; D63.1 Anemia in chronic kidney disease; Z95.0 Presence of cardiac pacemaker; Z95.5 Presence of coronary angioplasty implant and graft; Z96.653 Presence of artificial knee joint, bilateral
CPT/HCPCS: 0241U-QW; 36415; 71045-TC-FY; 74021-TC-FY; 80048; 80053; 82550; 82962; 84484; 85025; 85610; 85730; 86704; 86803; 87340; 87517; 93005; 93010; 99285-25; G0378; J1644

== ENCOUNTER 2023-09-23 13:39 | Observation (INO) | payer OTHER ==
[2023-09-23 14:14] VITALS: BMI 29.9
[2023-09-23 15:49] LABS: BASO % 0.6 % (0-2.0); EOS % 2.1 % (0-4.5); HEMATOCRIT 31.5 % (35.4-49); HEMOGLOBIN 9.8 GM/dL (11.7-16.9); LYMPH % 16.2 % (8-40); MCH 33.3 pg (25.7-33.7); MCHC 31.1 g/dl (32.0-35.9); MEAN CELL VOLUME 106.9 fl (80-96); MONO % 8.9 % (3.8-10.2); NEUT % 72.2 % (42.8-82.8); PLATELET COUNT 131 10^3/uL (134-434); RBC 2.95 M/mm3 (4.00-5.60); RDW 19.2 % (11.9-15.9); WHITE BLOOD COUNT 8.4 K/mm3 (4.0-10.0)
[2023-09-23 16:08] LABS: CHLORIDE 110 mmol/L (98-107); POTASSIUM 3.7 mmol/L (3.5-5.1); SODIUM 142 mmol/L (136-145)
[2023-09-23 16:09] LABS: CALCIUM 8.1 mg/dL (8.5-10.1)
[2023-09-23 16:10] LABS: ALBUMIN 2.5 g/dl (3.4-5.0); ANION GAP 11 mmol/L (4-13); BLOOD UREA NITROGEN 78.4 mg/dL (7-18); CO2 21 mmol/L (21-32); GLUCOSE,RANDOM 110 mg/dL (74-106); MAGNESIUM 2.5 mg/dL (1.8-2.4)
[2023-09-23 16:13] LABS: SGOT/AST 25 U/L (15-37); SGPT/ALT 17 U/L (13-61)
[2023-09-23 16:15] LABS: BILIRUBIN,TOTAL 0.5 mg/dL (0.2-1); TOT PROT 6.8 g/dl (6.4-8.2)
[2023-09-23 16:16] LABS: ALK PHOS 135 U/L (45-117)
[2023-09-23 16:23] LABS: CREATININE 7.8 mg/dL (0.55-1.3)
[2023-09-23 16:52] LABS: ANISOCYTOSIS 1+; MACROCYTOSIS 0; OVALOCYTE 2+; TARGET CELLS 2+; TEAR DROP CELLS 2+
[2023-09-23] MEDS: INSULIN SLIDING SCALE (NOVOLOG) 1 VIAL SQ SCH (22:55)
[2023-09-24] MEDS: INSULIN SLIDING SCALE (NOVOLOG) 1 VIAL SQ SCH ×4 (05:59→21:33)
[2023-09-24 06:41] LABS: BASO % 0.6 % (0-2.0); EOS % 2.1 % (0-4.5); HEMATOCRIT 30.6 % (35.4-49); HEMOGLOBIN 9.3 GM/dL (11.7-16.9); LYMPH % 18.3 % (8-40); MCH 33.1 pg (25.7-33.7); MCHC 30.5 g/dl (32.0-35.9); MEAN CELL VOLUME 108.6 fl (80-96); MEAN PLT VOLUME 7.3 fl (7.5-11.1); MONO % 8.1 % (3.8-10.2); NEUT % 70.9 % (42.8-82.8); PLATELET COUNT 130 10^3/uL (134-434); RBC 2.82 M/mm3 (4.00-5.60); RDW 18.8 % (11.9-15.9); WHITE BLOOD COUNT 8.1 K/mm3 (4.0-10.0)
[2023-09-24 06:43] LABS: INR 1.66 (0.83-1.09); PROTHROMBIN TIME (PATIENT) 19.2 SEC (9.7-13.0)
[2023-09-24 06:46] LABS: ACTIVATED PTT 38.3 SECONDS (25.2-36.5)
[2023-09-24 07:29] LABS: CHLORIDE 110 mmol/L (98-107); POTASSIUM 3.8 mmol/L (3.5-5.1); SODIUM 144 mmol/L (136-145)
[2023-09-24 07:33] LABS: ANION GAP 12 mmol/L (4-13); BLOOD UREA NITROGEN 86.9 mg/dL (7-18); CO2 21 mmol/L (21-32); GLUCOSE,RANDOM 76 mg/dL (74-106)
[2023-09-24 07:46] LABS: CREATININE 8.2 mg/dL (0.55-1.3)
[2023-09-24] MEDS: TAMSULOSIN HCL 0.4 MG CAP PO SCH ×2 (09:06→10:25)
[2023-09-24] MEDS ORDERED: INSULIN SLIDING SCALE (NOVOLOG) 1 VIAL SQ ONE ×2 (10:10→21:27)
[2023-09-24] MEDS: ESCITALOPRAM OXALATE 10 MG TABLET PO SCH (10:11)
[2023-09-24] MEDS: SENNOSIDES 8.6MG TABLET (FP) PO SCH (10:12)
[2023-09-24] MEDS: LOSARTAN POTASSIUM 25 MG TABLET PO SCH (10:12)
[2023-09-24] MEDS: metoPROLOL SUCCINATE 25 MG TAB.SR.24H (FP) PO SCH (10:12)
[2023-09-24] MEDS: FERROUS SO4 325 MG TABLET (FP) PO SCH (10:12)
[2023-09-24] MEDS ORDERED: SODIUM CHLORIDE 250 ML IV PRN (13:50)
[2023-09-24] MEDS ORDERED: ATORVASTATIN CA 20 MG TABLET (FP) PO SCH (22:00)
[2023-09-24 22:23] VITALS: RESP 18
[2023-09-25] MEDS: INSULIN SLIDING SCALE (NOVOLOG) 1 VIAL SQ SCH ×2 (06:31→13:21)
[2023-09-25] MEDS: TAMSULOSIN HCL 0.4 MG CAP PO SCH (08:25)
[2023-09-25] MEDS ORDERED: EPOETIN ALFA-EPBX 10,000 UNIT/ML VIAL IVPUSH ONE (09:45)
[2023-09-25] MEDS ORDERED: VITAMIN B COMP W-C 1 EA TABLET (NEPHRO-VITE) PO SCH (10:00)
[2023-09-25 10:19] LABS: HEMATOCRIT 32.2 % (35.4-49); HEMOGLOBIN 9.8 GM/dL (11.7-16.9); MCHC 30.3 g/dl (32.0-35.9); MEAN CELL VOLUME 108.9 fl (80-96); MEAN PLT VOLUME 7.2 fl (7.5-11.1); PLATELET COUNT 144 10^3/uL (134-434); RBC 2.96 M/mm3 (4.00-5.60); RDW 19.1 % (11.9-15.9)
[2023-09-25 10:35] LABS: CHLORIDE 110 mmol/L (98-107); POTASSIUM 3.9 mmol/L (3.5-5.1); SODIUM 144 mmol/L (136-145)
[2023-09-25 10:39] LABS: ANION GAP 14 mmol/L (4-13); BLOOD UREA NITROGEN 88.6 mg/dL (7-18); CALCIUM 8.1 mg/dL (8.5-10.1); CO2 20 mmol/L (21-32); GLUCOSE,RANDOM 129 mg/dL (74-106)
[2023-09-25 10:43] LABS: CREATININE 9.1 mg/dL (0.55-1.3)
[2023-09-25] MEDS: LOSARTAN POTASSIUM 25 MG TABLET PO SCH (13:17)
[2023-09-25] MEDS: ESCITALOPRAM OXALATE 10 MG TABLET PO SCH (13:17)
[2023-09-25] MEDS: FERROUS SO4 325 MG TABLET (FP) PO SCH (13:17)
[2023-09-25] MEDS: metoPROLOL SUCCINATE 25 MG TAB.SR.24H (FP) PO SCH (13:17)
[2023-09-25] MEDS: SENNOSIDES 8.6MG TABLET (FP) PO SCH (13:20)
[2023-09-25 15:41] VITALS: BP 116/59
[2023-09-25 16:19] VITALS: PULSE 69; TEMP 97.7
== END 2023-09-25 16:18 ==
LOC: JER 13:39 → JERBED 18:14 → J4S 21:17
PROVIDERS: ADMIT Internal Medicine; ATTEND Family Medicine
PROC: 3E033GC Introduction of Other Therapeutic Substance into Peripheral Vein, Percutaneous Approach (ICD-10-PCS; principal; 2023-09-23)
DX: J90 Pleural effusion, not elsewhere classified (principal); I50.43 Acute on chronic combined systolic (congestive) and diastolic (congestive) heart failure; E78.5 Hyperlipidemia, unspecified; E11.22 Type 2 diabetes mellitus with diabetic chronic kidney disease; I13.2 Hypertensive heart and chronic kidney disease with heart failure and with stage 5 chronic kidney disease, or end stage renal disease; N18.6 End stage renal disease; Z99.2 Dependence on renal dialysis; I48.0 Paroxysmal atrial fibrillation; I25.10 Atherosclerotic heart disease of native coronary artery without angina pectoris; I11.0 Hypertensive heart disease with heart failure; Z95.0 Presence of cardiac pacemaker; I47.10 Supraventricular tachycardia, unspecified; Z95.5 Presence of coronary angioplasty implant and graft; M19.90 Unspecified osteoarthritis, unspecified site; Z90.49 Acquired absence of other specified parts of digestive tract; F03.90 Unspecified dementia, unspecified severity, without behavioral disturbance, psychotic disturbance, mood disturbance, and anxiety; M10.9 Gout, unspecified; W18.39XA Other fall on same level, initial encounter; Y93.89 Activity, other specified; Y92.003 Bedroom of unspecified non-institutional (private) residence as the place of occurrence of the external cause; Z87.891 Personal history of nicotine dependence; K59.00 Constipation, unspecified; K21.9 Gastro-esophageal reflux disease without esophagitis; R01.1 Cardiac murmur, unspecified; E05.90 Thyrotoxicosis, unspecified without thyrotoxic crisis or storm
CPT/HCPCS: 36415; 70450-TC; 71045-TC-FY; 72125-TC; 72170-TC-FY; 80048; 80053; 82962; 83735; 84100; 84484; 85025; 85027; 85610; 85730; 86803; 87340; 93005; 93010; 96374; 97116-GP; 97161-GP; 99285-25; G0378; Q5106

== ENCOUNTER 2023-10-06 12:15 | Inpatient (IN) | payer OTHER ==
[2023-10-06 14:00] LABS: BASO % 0.7 % (0-2.0); EOS % 0.5 % (0-4.5); HEMATOCRIT 19.7 % (35.4-49); LYMPH % 10.5 % (8-40); MCH 34.3 pg (25.7-33.7); MEAN CELL VOLUME 110.5 fl (80-96); MEAN PLT VOLUME 8.1 fl (7.5-11.1); MONO % 6.5 % (3.8-10.2); NEUT % 81.8 % (42.8-82.8); PLATELET COUNT 209 10^3/uL (134-434); RBC 1.79 M/mm3 (4.00-5.60); RDW 18.8 % (11.9-15.9); WHITE BLOOD COUNT 10.1 K/mm3 (4.0-10.0)
[2023-10-06 14:11] LABS: HEMOGLOBIN 6.1 GM/dL (11.7-16.9)
[2023-10-06 14:17] LABS: CHLORIDE 109 mmol/L (98-107); SODIUM 142 mmol/L (136-145)
[2023-10-06 14:20] LABS: ALBUMIN 2.5 g/dl (3.4-5.0); ANION GAP 18 mmol/L (4-13); CALCIUM 7.7 mg/dL (8.5-10.1); CO2 15 mmol/L (21-32); GLUCOSE,RANDOM 136 mg/dL (74-106); LIPASE 660 U/L (73-393); MAGNESIUM 2.5 mg/dL (1.8-2.4)
[2023-10-06 14:21] LABS: INR 1.62 (0.83-1.09); PROTHROMBIN TIME (PATIENT) 18.7 SEC (9.7-13.0)
[2023-10-06 14:23] LABS: PHOSPHOROUS 8.5 mg/dL (2.5-4.9); SGOT/AST 34 U/L (15-37)
[2023-10-06 14:24] LABS: ACTIVATED PTT 33.1 SECONDS (25.2-36.5); SGPT/ALT 20 U/L (13-61)
[2023-10-06 14:25] LABS: BILIRUBIN,TOTAL 0.4 mg/dL (0.2-1); TOT PROT 6.5 g/dl (6.4-8.2)
[2023-10-06 14:27] LABS: ALK PHOS 121 U/L (45-117)
[2023-10-06 14:31] LABS: BLOOD UREA NITROGEN > 150.0 mg/dL (7-18); CREATININE 9.9 mg/dL (0.55-1.3)
[2023-10-06 14:35] LABS: ANISOCYTOSIS 1+; MACROCYTOSIS 1+
[2023-10-06] MEDS ORDERED: SODIUM CHLORIDE 250 ML IV PRN (14:35)
[2023-10-06 18:02] VITALS: BMI 21.4
[2023-10-06] MEDS: ATORVASTATIN CA 20 MG TABLET (FP) PO SCH ×2 (21:48→21:51)
[2023-10-06] MEDS: SENNOSIDES 8.6MG TABLET (FP) PO SCH ×2 (21:48→21:50)
[2023-10-07 07:27] LABS: HEMATOCRIT 21.1 % (35.4-49); MCH 34.5 pg (25.7-33.7); MCHC 32.3 g/dl (32.0-35.9); MEAN CELL VOLUME 106.8 fl (80-96); MEAN PLT VOLUME 7.6 fl (7.5-11.1); PLATELET COUNT 170 10^3/uL (134-434); RBC 1.97 M/mm3 (4.00-5.60); RDW 19.9 % (11.9-15.9); WHITE BLOOD COUNT 9.7 K/mm3 (4.0-10.0)
[2023-10-07 07:46] LABS: HEMOGLOBIN 6.8 GM/dL (11.7-16.9)
[2023-10-07 07:49] LABS: CHLORIDE 111 mmol/L (98-107); POTASSIUM 4.8 mmol/L (3.5-5.1); SODIUM 144 mmol/L (136-145)
[2023-10-07 07:52] LABS: ALBUMIN 2.5 g/dl (3.4-5.0); ANION GAP 18 mmol/L (4-13); CALCIUM 7.6 mg/dL (8.5-10.1); CO2 15 mmol/L (21-32); GLUCOSE,RANDOM 104 mg/dL (74-106)
[2023-10-07 07:55] LABS: SGOT/AST 24 U/L (15-37); SGPT/ALT 18 U/L (13-61)
[2023-10-07 07:56] LABS: BILIRUBIN,TOTAL 1.3 mg/dL (0.2-1); TOT PROT 6.2 g/dl (6.4-8.2)
[2023-10-07 07:58] LABS: ALK PHOS 113 U/L (45-117)
[2023-10-07 08:12] LABS: BLOOD UREA NITROGEN 181.4 mg/dL (7-18); CREATININE 10.6 mg/dL (0.55-1.3)
[2023-10-07 09:17] LABS: ANISOCYTOSIS 2+; MACROCYTOSIS 1+
[2023-10-07] MEDS: PANTOPRAZOLE SODIUM 40 MG VIAL IVPUSH SCH (09:24)
[2023-10-07] MEDS: SENNOSIDES 8.6MG TABLET (FP) PO SCH ×2 (09:25→21:40)
[2023-10-07] MEDS: ESCITALOPRAM OXALATE 10 MG TABLET PO SCH (09:25)
[2023-10-07] MEDS: TAMSULOSIN HCL 0.4 MG CAP PO SCH (09:25)
[2023-10-07] MEDS: CALCIUM ACETATE 667 MG CAPSULE (FP) PO SCH ×3 (09:26→17:10)
[2023-10-07] MEDS: metoPROLOL SUCCINATE 25 MG TAB.SR.24H (FP) PO SCH (09:26)
[2023-10-07] MEDS: LOSARTAN POTASSIUM 25 MG TABLET PO SCH (09:26)
[2023-10-07] MEDS ORDERED: PATIENT'S OWN MEDICATION (NON-FORMULARY) (Escitalopram Oxalate [Lexapro -] 5 MG Tablet) PO SCH (10:00)
[2023-10-07] MEDS ORDERED: SODIUM CHLORIDE 250 ML IV PRN ×2 (12:24→12:26)
[2023-10-07] MEDS ORDERED: EPOETIN ALFA-EPBX 10,000 UNIT/ML VIAL SQ ONE (16:00)
[2023-10-07] MEDS: ATORVASTATIN CA 20 MG TABLET (FP) PO SCH (21:40)
[2023-10-08] MEDS ORDERED: CALCIUM ACETATE 667 MG CAPSULE (FP) PO SCH (08:00)
[2023-10-08 08:28] LABS: HEMOGLOBIN 7.9 GM/dL (11.7-16.9); MCH 35.7 pg (25.7-33.7); MCHC 34.1 g/dl (32.0-35.9); MEAN CELL VOLUME 104.6 fl (80-96); MEAN PLT VOLUME 7.1 fl (7.5-11.1); PLATELET COUNT 166 10^3/uL (134-434); RDW 18.9 % (11.9-15.9)
[2023-10-08 08:41] LABS: CHLORIDE 113 mmol/L (98-107); POTASSIUM 3.5 mmol/L (3.5-5.1); SODIUM 148 mmol/L (136-145)
[2023-10-08 08:54] LABS: ANION GAP 16 mmol/L (4-13); CO2 19 mmol/L (21-32); GLUCOSE,RANDOM 91 mg/dL (74-106)
[2023-10-08 08:55] LABS: CALCIUM 7.6 mg/dL (8.5-10.1)
[2023-10-08 09:02] LABS: BLOOD UREA NITROGEN 132.5 mg/dL (7-18); CREATININE 8.5 mg/dL (0.55-1.3)
[2023-10-08] MEDS: ESCITALOPRAM OXALATE 10 MG TABLET PO SCH (10:05)
[2023-10-08] MEDS: TAMSULOSIN HCL 0.4 MG CAP PO SCH (10:05)
[2023-10-08] MEDS: metoPROLOL SUCCINATE 25 MG TAB.SR.24H (FP) PO SCH (10:06)
[2023-10-08] MEDS: SENNOSIDES 8.6MG TABLET (FP) PO SCH ×2 (10:06→21:41)
[2023-10-08] MEDS: LOSARTAN POTASSIUM 25 MG TABLET PO SCH (10:06)
[2023-10-08] MEDS: CALCIUM ACETATE 667 MG CAPSULE (FP) PO SCH ×3 (10:11→17:02)
[2023-10-08] MEDS: PANTOPRAZOLE SODIUM 40 MG VIAL IVPUSH SCH ×3 (10:22→21:41)
[2023-10-08 10:55] LABS: ANISOCYTOSIS 2+; MACROCYTOSIS 1+; TARGET CELLS 2+
[2023-10-08] MEDS: ATORVASTATIN CA 20 MG TABLET (FP) PO SCH (21:41)
[2023-10-09 06:41] LABS: HEMOGLOBIN 8.3 GM/dL (11.7-16.9); MCH 35.3 pg (25.7-33.7); MCHC 33.1 g/dl (32.0-35.9); MEAN CELL VOLUME 106.7 fl (80-96); MEAN PLT VOLUME 6.9 fl (7.5-11.1); PLATELET COUNT 170 10^3/uL (134-434); RBC 2.35 M/mm3 (4.00-5.60); RDW 20.1 % (11.9-15.9)
[2023-10-09 07:26] LABS: POTASSIUM 3.5 mmol/L (3.5-5.1)
[2023-10-09 07:30] LABS: ALBUMIN 2.3 g/dl (3.4-5.0); CALCIUM 8.5 mg/dL (8.5-10.1)
[2023-10-09 07:33] LABS: CREATININE 5.4 mg/dL (0.55-1.3)
[2023-10-09 07:35] LABS: BILIRUBIN,TOTAL 0.8 mg/dL (0.2-1)
[2023-10-09 07:37] LABS: BLOOD UREA NITROGEN 68.2 mg/dL (7-18)
[2023-10-09] MEDS: ESCITALOPRAM OXALATE 10 MG TABLET PO SCH (09:24)
[2023-10-09] MEDS: metoPROLOL SUCCINATE 25 MG TAB.SR.24H (FP) PO SCH (09:24)
[2023-10-09] MEDS: TAMSULOSIN HCL 0.4 MG CAP PO SCH (09:24)
[2023-10-09] MEDS: LOSARTAN POTASSIUM 25 MG TABLET PO SCH (09:24)
[2023-10-09] MEDS: SENNOSIDES 8.6MG TABLET (FP) PO SCH ×2 (09:24→22:04)
[2023-10-09] MEDS: PANTOPRAZOLE SODIUM 40 MG VIAL IVPUSH SCH ×2 (10:44→21:58)
[2023-10-09] MEDS: ATORVASTATIN CA 20 MG TABLET (FP) PO SCH (22:04)
[2023-10-10 07:22] LABS: HEMATOCRIT 25.5 % (35.4-49); HEMOGLOBIN 8.1 GM/dL (11.7-16.9); MCH 34.8 pg (25.7-33.7); MCHC 31.7 g/dl (32.0-35.9); MEAN CELL VOLUME 109.7 fl (80-96); MEAN PLT VOLUME 7.1 fl (7.5-11.1); PLATELET COUNT 183 10^3/uL (134-434); RBC 2.32 M/mm3 (4.00-5.60); RDW 20.9 % (11.9-15.9); WHITE BLOOD COUNT 17.3 K/mm3 (4.0-10.0)
[2023-10-10 07:42] LABS: POTASSIUM 3.7 mmol/L (3.5-5.1)
[2023-10-10 07:46] LABS: ALBUMIN 2.3 g/dl (3.4-5.0); CALCIUM 7.9 mg/dL (8.5-10.1)
[2023-10-10 07:47] LABS: BLOOD UREA NITROGEN 78.7 mg/dL (7-18)
[2023-10-10 07:50] LABS: CREATININE 6.8 mg/dL (0.55-1.3)
[2023-10-10 07:51] LABS: BILIRUBIN,TOTAL 0.9 mg/dL (0.2-1); TOT PROT 6.1 g/dl (6.4-8.2)
[2023-10-10] MEDS ORDERED: CALCIUM ACETATE 667 MG CAPSULE (FP) PO SCH (08:00)
[2023-10-10] MEDS ORDERED: TAMSULOSIN HCL 0.4 MG CAP PO SCH (08:30)
[2023-10-10] MEDS: CALCIUM ACETATE 667 MG CAPSULE (FP) PO SCH ×3 (09:13→17:31)
[2023-10-10 09:46] VITALS: PULSE 70; RESP 17
[2023-10-10] MEDS ORDERED: LOSARTAN POTASSIUM 25 MG TABLET PO SCH (10:00)
[2023-10-10] MEDS ORDERED: SENNOSIDES 8.6MG TABLET (FP) PO SCH (10:00)
[2023-10-10] MEDS ORDERED: metoPROLOL SUCCINATE 25 MG TAB.SR.24H (FP) PO SCH (10:00)
[2023-10-10] MEDS ORDERED: ESCITALOPRAM OXALATE 10 MG TABLET PO SCH (10:00)
[2023-10-10] MEDS: PANTOPRAZOLE SODIUM 40 MG VIAL IVPUSH SCH (10:31)
[2023-10-10] MEDS ORDERED: ACETAMINOPHEN 1000 MG/100 ML BAG IVPB SCH (14:00)
[2023-10-10 14:32] VITALS: BP 97/40; TEMP 97.6
[2023-10-10] MEDS ORDERED: ATORVASTATIN CA 20 MG TABLET (FP) PO SCH (22:00)
== END 2023-10-10 18:18 | DRG 377 ==
LOC: JER 12:15 → JERBED 15:09 → J4S 17:22
PROVIDERS: ADMIT Internal Medicine; ATTEND Internal Medicine
PROC: 30233N1 Transfusion of Nonautologous Red Blood Cells into Peripheral Vein, Percutaneous Approach (ICD-10-PCS; principal; 2023-10-06)
DX: K92.2 Gastrointestinal hemorrhage, unspecified (principal); G93.41 Metabolic encephalopathy; N18.6 End stage renal disease; I13.2 Hypertensive heart and chronic kidney disease with heart failure and with stage 5 chronic kidney disease, or end stage renal disease; N17.9 Acute kidney failure, unspecified; T82.590A Other mechanical complication of surgically created arteriovenous fistula, initial encounter; I50.42 Chronic combined systolic (congestive) and diastolic (congestive) heart failure; E44.0 Moderate protein-calorie malnutrition; D63.1 Anemia in chronic kidney disease; F03.90 Unspecified dementia, unspecified severity, without behavioral disturbance, psychotic disturbance, mood disturbance, and anxiety; I10 Essential (primary) hypertension; I25.10 Atherosclerotic heart disease of native coronary artery without angina pectoris; R19.5 Other fecal abnormalities; Y83.9 Surgical procedure, unspecified as the cause of abnormal reaction of the patient, or of later complication, without mention of misadventure at the time of the procedure; Z68.21 Body mass index [BMI] 21.0-21.9, adult; Z95.5 Presence of coronary angioplasty implant and graft; E78.5 Hyperlipidemia, unspecified; N40.0 Benign prostatic hyperplasia without lower urinary tract symptoms; K21.9 Gastro-esophageal reflux disease without esophagitis
CPT/HCPCS: 36415; 36430; 74176-TC; 80048; 80053; 82272; 82962; 83690; 83735; 84100; 84484; 85025; 85027; 85610; 85730; 86850; 86900; 86901; 86922; 87040; 93005; 93010; 99285-25; P9058; Q5106